=== PATIENT | female | born 1945 | race African-American/Black ===

== ENCOUNTER 2018-06-02 14:34 | Inpatient (IN) | payer BC, OTHER ==
--- NOTE | 2018-06-02 14:52 | PDOC ---
Rapid Medical Evaluation Time Seen by Provider: 06/02/18 14:48 Medical Evaluation: 06/02/18 14:48 Patient had a brief in-person assessment of this patient The patient presents with a chief complaint of: shortness of breath with productive cough. Reports coughing up bloody phlegm, sent to ed by pmd Pertinent physical findings are: appears winded diminished lungs sounds, a little labored irregular hear rhythm bipedal edema I have ordered the following: ekg, labs, chest xray This patient will proceed to the ED for further evaluation.
[2018-06-02 14:56] VITALS: BMI 22.1
[2018-06-02] MEDS ORDERED: methylPREDNISolone NA SUCC 125 MG/2 ML VIAL IVPUSH ONE (15:13)
[2018-06-02] MEDS: ALBUTEROL SO4 2.5/IPRATROPIUM 0.5 INH SOL 3 ML VIAL.NEB. NEB SCH ×4 (15:15→16:05)
--- NOTE | 2018-06-02 15:17 | PDOC ---
History of Present Illness - General Chief Complaint: Shortness of Breath Stated Complaint: PCP SENT/BLOOD IN MUCUS Time Seen by Provider: 06/02/18 14:48 History Source: Patient - History of Present Illness Timing/Duration: reports: other Associated Symptoms: reports: cough, shortness of breath, wheezing. denies: fever/chills Past History - Past Medical History Allergies/Adverse Reactions: Allergies Allergy/AdvReac Type Severity Reaction Status Date / Time No Known Allergies Allergy Verified 06/02/18 14:49 Home Medications: Ambulatory Orders Albuterol Sulfate [Proair Hfa] 8.5 gm IH DAILY 06/02/18 Amlodipine Besylate 10 mg PO DAILY 06/02/18 Apixaban [Eliquis] 5 mg PO BID 06/02/18 Atorvastatin Calcium 20 mg PO DAILY 06/02/18 Brimonidine Tartrate [Alphagan 0.15% -] 1 drop OU BID 06/02/18 Hydralazine HCl 100 mg PO DAILY 06/02/18 Losartan Potassium 0 mg PO DAILY 06/02/18 COPD: Yes - Suicide/Smoking/Psychosocial Hx Smoking History: Never smoked Hx Alcohol Use: No Drug/Substance Use Hx: No Review of Systems - Review of Systems Constitutional: No: Chills, Fever, Unexplained wgt Loss Respiratory: Yes: Cough, Wheezing. No: Shortness of Breath Cardiac (ROS): Yes: Chest Pain, Chest Tightness *Physical Exam - Vital Signs Last Vital Signs Temp Pulse Resp BP Pulse Ox 98.8 F 86 24 119/63 91 L 06/02/18 14:51 06/02/18 14:51 06/02/18 14:51 06/02/18 14:51 06/02/18 14:51 - Physical Exam General Appearance: Yes: Appropriately Dressed. No: Apparent Distress HEENT: positive: Normal Voice Neck: positive: Supple Respiratory/Chest: positive: Lungs Clear, Normal Breath Sounds. negative: Wheezing Cardiovascular: positive: Regular Rate, S1, S2 Integumentary: positive: Dry, Warm Neurologic: positive: Fully Oriented, Alert, Normal Mood/Affect ED Treatment Course - LABORATORY CBC & Chemistry Diagram: 06/02/18 15:30 06/02/18 15:30 Medical Decision Making - Medical Decision Making 06/02/18 15:14 72 yo F, h/o diet controlled DM, HTN, cardiomegaly, heart murmur, "bronchial asthma", no tob use, here w/ cough w/ sob. Pt c/o mostly non-productive cough for weeks that recently became grossly bloody. Also complaining of worsening shortness of breath, wheezing and chest tightness. States symptoms feels like her bronchial asthma, but that sxs has never been severe enough for her to come to the ED. States her sxs usually improves with her pump but not this time. No diaphoresis, n/v. No tob hx. CT in 2015 w/ pulmonary nodules. No f/u CT since per pt. Also c/o swelling to feet b/l of unclear duration. States she has had same in the past See exam Progressive cough w/ sob, ?hemoptysis Non smoker No recent travel or known sick contacts Sxs not improved w/ asthma pump Sating 91% on RA and visibly SOB w/ clear chest/lungs Asthma vs CHF vs ACS vs malignancy (melania given pulm noodles on CT in 2014, unsure if had f/u CT), possibly TB though no recent travel/exposure, less likely PE or dissection Chest/lungs clear -duoneb -steroids -ekg -cxr -labs -reassess 06/02/18 18:06 06/02/18 18:10 CXR read as ill defined densities in mid and upper lung gamboa b/l w/ superimposed infiltrate, "dramatically different" from prior CXR. CT strongly recommended. Will consider a dose of abx in ED. Anemic on labs w/ Hgb of 8, no old numbers for comparison. Trop neg. BNP >500. Will continue w/u and admit at this time 06/02/18 18:39 Case d/w admitting team and pt admitted *DC/Admit/Observation/Transfer Diagnosis at time of Disposition: SOB (shortness of breath), Cough, Lung mass - Discharge Dispostion Decision to Admit order: Yes - Referrals Referrals: Alejandra Jeffrey MD [Primary Care Provider] - - Patient Instructions - Post Discharge Activity
[2018-06-02] MEDS ORDERED: ALBUTEROL SO4 2.5/IPRATROPIUM 0.5 INH SOL 3 ML VIAL.NEB. NEB ONE (15:29)
[2018-06-02] MEDS ORDERED: methylPREDNISolone NA SUCC 125 MG/2 ML VIAL ONE (15:29)
[2018-06-02 15:57] LABS: BASO % 0.1 % (0-2.0); EOS % 0.1 % (0-4.5); HEMATOCRIT 25.8 % (32.4-45.2); HEMOGLOBIN 8.8 GM/dL (10.7-15.3); LYMPH % 5.9 % (8-40); MCH 32.1 pg (25.7-33.7); MEAN CELL VOLUME 94.4 fl (80-96); MONO % 5.3 % (3.8-10.2); NEUT % 88.6 % (42.8-82.8); PLATELET COUNT 256 K/MM3 (134-434); RBC 2.73 M/mm3 (3.60-5.2); RDW 12.7 % (11.6-15.6); WHITE BLOOD COUNT 10.9 K/mm3 (4.0-10.0)
[2018-06-02 16:12] LABS: INR 1.9 (0.83-1.09); PROTHROMBIN TIME (PATIENT) 21.5 SEC (9.7-13.0)
[2018-06-02 16:15] LABS: ACTIVATED PTT 40.2 SECONDS (25.2-36.5)
[2018-06-02 16:17] LABS: ALBUMIN 3.2 g/dl (3.4-5.0); ALK PHOS 94 U/L (45-117); ANION GAP 5 MMOL/L (8-16); BILIRUBIN,TOTAL 0.9 mg/dL (0.2-1); BLOOD UREA NITROGEN 10 mg/dL (7-18); CALCIUM 8.8 mg/dL (8.5-10.1); CHLORIDE 97 mmol/L (98-107); CO2 30 mmol/L (21-32); CREATININE 0.8 mg/dL (0.55-1.3); GLUCOSE,RANDOM 170 mg/dL (74-106); POTASSIUM 3.4 mmol/L (3.5-5.1); SGOT/AST 27 U/L (15-37); SGPT/ALT 20 U/L (13-61); SODIUM 132 mmol/L (136-145); TOT PROT 7.7 g/dl (6.4-8.2)
[2018-06-02 16:19] LABS: N-TERMINAL BNP 566.36 pg/ml (5-125)
[2018-06-02] MEDS ORDERED: CEFTRIAXONE 1 GM in DEXTROSE 5%-WATER - 50 ML IVPB ONE (19:00)
[2018-06-02] MEDS ORDERED: AZITHROMYCIN IVPB 500 MG in DEXTROSE 5%-WATER - 250 ML IVPB ONE (19:00)
--- NOTE | 2018-06-02 19:42 | PN ---
Teaching Attending Note Name of Resident: Dayan Javier ATTENDING PHYSICIAN STATEMENT I saw and evaluated the patient. I reviewed the resident's note and discussed the case with the resident. I agree with the resident's findings and plan as documented. SUBJECTIVE: Patient is a 72 year old woman with history of diet controlled DM, HTN, ?afib ( on Eliquis), cardiomegaly, heart murmur, and "bronchial asthma", presents with cough and SOB. She has mostly non-productive cough for weeks that recently became grossly bloody. Also has worsening SOB, wheezing and chest tightness. States symptoms feels like her bronchial asthma, but that symptoms have never been severe enough for her to come to the ER. Symptoms did not improve with her pump. Also has swelling of her feet of unclear duration. Denies diaphoresis, nausea or vomiting. Nonsmoker. CT in 2014 showed pulmonary nodules. No follow up CT since. OBJECTIVE: Alert Vital Signs Period Temp Pulse Resp BP Sys/Red Pulse Ox Last 24 Hr 98.7 F-98.8 F 71-86 17-24 119-145/55-74 91-100 HEENT: No Jaundice, eye redness or discharge, PERRLA, EOMI. Normocephalic, atraumatic. External ears are normal and hearing is grossly intact. No nasal discharge. Neck: Supple, nontender. No palpable adenopathy or thyromegaly. No JVD Chest: Good effort. Clear to auscultation and percussion. Heart: Regular. No S3 or rub; 2/6 EVY Abdomen: Not distended, soft, nontender and no HSM. No rebound or guarding. Normoactive bowel sounds. Ext: Peripheral pulses intact. No leg edema. Skin: Warm and dry. No petechiae, rash or ecchymosis. Neuro: Alert. Oriented x3. CN 2-12 grossly intact. Sensation grossly intact in all four extremities and DTR are symmetric. Home Medications Medication Instructions Recorded Albuterol Sulfate [Proair Hfa] 8.5 gm IH DAILY 06/02/18 Amlodipine Besylate 10 mg PO DAILY 06/02/18 Apixaban [Eliquis] 5 mg PO BID 06/02/18 Atorvastatin Calcium 20 mg PO DAILY 06/02/18 Brimonidine Tartrate [Alphagan 1 drop OU BID 06/02/18 0.15% -] Hydralazine HCl 100 mg PO DAILY 06/02/18 Losartan Potassium 0 mg PO DAILY 06/02/18 Abnormal Lab Results 06/02/18 06/02/18 06/02/18 15:30 15:30 15:30 WBC 10.9 H RBC 2.73 L Hgb 8.8 L Hct 25.8 L Absolute Neuts (auto) 9.7 H Neutrophils % 88.6 H Lymphocytes % 5.9 L PT with INR 21.50 H INR 1.90 H PTT (Actin FS) 40.2 H Sodium 132 L Potassium 3.4 L Chloride 97 L Anion Gap 5 L Random Glucose 170 H B-Natriuretic Peptide 566.36 H Albumin 3.2 L ASSESSMENT AND PLAN: 1. Hemoptysis and SOB - Has bilateral fluffy infiltrates most prominent in the upper lobes. CT report pending. Will get CTPA to rule out PE, send sputum and blood for TB tests and consult pulmonary. With history of chills and leukocytosis, may have associated atypical infection. Will send for urine legionella and treat with azithromycin, rocephin, duoneb and steroids. Will continue Eliquis for now and monitor hematocrit and stop it if hemptysis intensifies. Hyponatremia maybe due to SIADH associated with lung disease and/ or hyperglycemia. Will restrict free water inatek and correct hyperglycemia. Urinary K wasting due to hyperglycemia may expalin hypokalemia. Check Mg+ level and give oral KCL. Place on isolation while ruling out TB. 2. Diet controlled DM - Check HbA1c and implement sliding scale insulin regimen. Provide comprehensive diabetes care with patient teaching and counseling about the importance of euglycemia, eye care and foot care. Increase dose of losartan to improve BP control. 3. Anemia - May be related to her lung pathology - chronic inflammation. Do basic anemia work up including serial stool guaiacs, reticulocyte count and iron studies. 4. DVT prophylaxis - On Eliquis 5. Advance directives - Full code
[2018-06-02] MEDS ORDERED: CEFTRIAXONE 1 GM/50 ML BAG ONE ×2 (20:23)
[2018-06-02] MEDS ORDERED: AZITHROMYCIN IVPB 250 ML IVPB ONE (20:23)
[2018-06-02] MEDS ORDERED: POTASSIUM CHLORIDE TABS 20 MEQ TABLET.ER (FP) PO ONE ×2 (20:28→20:32)
--- NOTE | 2018-06-02 21:06 | HP ---
CHIEF COMPLAINT: Shortness of breath PCP: Dr. Rachele Roberts Event Planning Intern: Dr. Gutierres HISTORY OF PRESENT ILLNESS: Patient is a 72 year old female with a PMHx of HTN, HLD, NIDDMII (Diet controlled), Atrial Fibrillation, Asthma/Bronchitis, Cardiomegaly who presented today for progressive shortness of breath associated with a productive cough. Patient reports she's has asthma/Bronchitis her whole life and usually has a chronic cough throughout spring. However, patient now reports worsening productive cough for the past month and states bright red blood sputum in the beginning but is now dark associated with dyspnea on exertion. Reports she becomes short of breath with just a couple of steps and is now unable to walk up the stairs. Patient states she's been using her albuterol 2-3 times a day, which prompted her to visit her PCP this morning. After the PCP evaluated the patient, she encouraged her to come to the ED, which prompted this hospital visit. Patient does report having chills, night sweats in the last month and 40 pound weight loss in the last 10 years. Denies any occupational exposure or recent travel. Of note, reports she sits throughout the whole day at a custodial with her son and reports little mobility. Otherwise, patient denies any orthopnea, abdominal pain, diarrhea, constipation , melena, hematuria, previous PE or DVT, malignancy or treatment within 6 months , recent surgery, hormonal use. Patient reports last ECHO was one year ago and was wnl with a repeat one this Saturday. Last Stress test was last year and states it was wnl. Reports last colonoscopy was several decades ago and has not followed up. 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 from in the last 10 years and currently lives alone. Smoking: Denies Alcohol: Occasionally Drugs: Denies Family History: Mother- Stroke Father- Cardiomegaly, from bleeding ulcer Allergies: No Known Allergies Allergy (Verified 06/02/18 14:49) OBGYN: Unsure age of menarche or menopause. Reports used to have regular menstrual cycles HOME MEDICATIONS: Home Medications Medication Instructions Recorded Albuterol Sulfate [Proair Hfa] 8.5 gm IH DAILY 06/02/18 Amlodipine Besylate 10 mg PO DAILY 06/02/18 Apixaban [Eliquis] 5 mg PO BID 06/02/18 Atorvastatin Calcium 20 mg PO DAILY 06/02/18 Brimonidine Tartrate [Alphagan 1 drop OU BID 06/02/18 0.15% -] Hydralazine HCl 100 mg PO DAILY 06/02/18 Losartan Potassium 25 mg PO DAILY 06/02/18 REVIEW OF SYSTEMS CONSTITUTIONAL: chills, night sweats Absent: fever, diaphoresis, generalized weakness, malaise, loss of appetite, weight change HEENT: Absent: rhinorrhea, nasal congestion, throat pain, throat swelling, difficulty swallowing, mouth swelling, ear pain, eye pain, visual changes CARDIOVASCULAR: Absent: chest pain, syncope, palpitations, irregular heart rate, lightheadedness , peripheral edema RESPIRATORY: cough, shortness of breath, dyspnea with exertion, hemoptysis Absent: orthopnea, wheezing, stridor GASTROINTESTINAL: Absent: abdominal pain, abdominal distension, nausea, vomiting, diarrhea, constipation, melena, hematochezia GENITOURINARY: Absent: dysuria, frequency, urgency, hesitancy, hematuria, flank pain, genital pain MUSCULOSKELETAL: Absent: myalgia, arthralgia, joint swelling, back pain, neck pain SKIN: Absent: rash, itching, pallor HEMATOLOGIC/IMMUNOLOGIC: Absent: easy bleeding, easy bruising, lymphadenopathy, frequent infections ENDOCRINE: Absent: unexplained weight gain, unexplained weight loss, heat intolerance, cold intolerance NEUROLOGIC: Absent: headache, focal weakness or paresthesias, dizziness, unsteady gait, seizure, mental status changes, bladder or bowel incontinence PSYCHIATRIC: Absent: anxiety, depression, suicidal or homicidal ideation, hallucinations. PHYSICAL EXAMINATION Vital Signs - 24 hr 06/02/18 06/02/18 06/02/18 14:51 15:55 16:25 Temperature 98.8 F Pulse Rate 86 Pulse Rate [ 71 Apical] Respiratory 24 17 Rate Blood Pressure 119/63 Blood Pressure 145/74 [Right Arm] O2 Sat by Pulse 91 L 96 96 Oximetry (%) 06/02/18 19:15 Temperature 98.7 F Pulse Rate Pulse Rate [ 86 Apical] Respiratory 22 Rate Blood Pressure Blood Pressure 144/55 [Right Arm] O2 Sat by Pulse 100 Oximetry (%) GENERAL: Awake, alert, and fully oriented, in no acute distress. HEAD: Normal with no signs of trauma. EYES: Pupils equal, round and reactive to light, extraocular movements intact, sclera anicteric, conjunctiva clear. No lid lag. EARS, NOSE, THROAT: Oropharynx clear without exudates. Moist mucous membranes. NECK: (-) lymphadenopathy, JVD, or masses. LUNGS: Breath sounds equal, clear to auscultation bilaterally. No wheezes, and no crackles. No accessory muscle use. HEART: Regular rate and rhythm, 3/6 systolic murmurs on LUSB and RUSB ABDOMEN: Soft, nontender, not distended, normoactive bowel sounds, no guarding, no rebound, no masses. No hepatomegaly or splenomegaly. RECTAL: No external hemorrhoids. Stool in vault, no masses or lesions MUSCULOSKELETAL: No CVA tenderness. UPPER EXTREMITIES: No peripheral edema. LOWER EXTREMITIES: No peripheral edema. NEUROLOGICAL: Cranial nerves II-XII intact. Normal speech. Motor strength 5/5 bilaterally with sensory intact PSYCHIATRIC: Cooperative. Good eye contact. Appropriate mood and affect. SKIN: Warm, dry, normal turgor, no rashes or lesions noted, normal capillary refill. Laboratory Results - last 24 hr 06/02/18 06/02/18 06/02/18 15:30 15:30 15:30 WBC 10.9 H RBC 2.73 L Hgb 8.8 L Hct 25.8 L MCV 94.4 MCH 32.1 MCHC 34.0 RDW 12.7 Plt Count 256 MPV 9.0 Absolute Neuts (auto) 9.7 H Neutrophils % 88.6 H Lymphocytes % 5.9 L Monocytes % 5.3 Eosinophils % 0.1 Basophils % 0.1 Nucleated RBC % 0 PT with INR 21.50 H INR 1.90 H PTT (Actin FS) 40.2 H Sodium 132 L Potassium 3.4 L Chloride 97 L Carbon Dioxide 30 Anion Gap 5 L BUN 10 Creatinine 0.8 Creat Clearance w eGFR > 60 Random Glucose 170 H Calcium 8.8 Total Bilirubin 0.9 AST 27 ALT 20 Alkaline Phosphatase 94 Troponin I 0.02 B-Natriuretic Peptide 566.36 H Total Protein 7.7 Albumin 3.2 L IMAGES: Chest X-Ray (06/02/18): Mid and upper lung field densities with bilateral infiltrates ASSESSMENT/PLAN: Patient is a 72 year old female who presented with shortness of breath and hemoptysis. She was found to be hypoxic with Chest X-Ray revealing bilateral infiltrates. Patient admitted for further monitoring and management. Hypoxia with Hemoptysis and Dyspnea -Will need to rule out TB, PE, malignancy, and Atypical PNA -Chest X-Ray today revealed mid and upper lung field densities with bilateral infiltrates. Previous CT and CXR 2015 revealed pulmonary nodules -CTA pending to r/o PE -AFB, sputum cultures, Quantiferon ordered to rule out PE -Patient does have some leukocytosis with hyponatermia, chills, which might possibly be due to atypical PNA. Urine legionella ordered, Mycoplasma IGG and IGM ordered, Sputum cultures ordered. Will continue Azithromycin 500mg daily, Ceftriaxone 1gm daily, and Methylprednisone 40mg IVP BID -Duo-Neb PRN -Isolation precaution -Will ask for HIV testing due to bilateral pulmonary infiltrates -Pulmonary consult placed Normocytic Anemia -Possibly secondary to possibly lung pathology and inflammation. Reports never being diagnosed with anemia -Iron studies and retic count ordered -Stool Guaic done -Continue to monitor CBC -Will continue Eliquis unless hgb/hct drops significantly Hyponatremia -Likely SIADH from lung pathology and possible hyperglycemia -Limit water intake -Will need to control hyperglycemia -Continue to monitor BMP Hypokalemia -KCl 40meq ordered -Magnesium levels ordered -Continue to monitor BMP NIDDMII -Patient reports on no medications and is on diet control -A1C ordered -BGM and ISS HTN -Continue home medication with Hydralazine 100mg daily, Amlodipine 10mg daily, and Increase Losartan to 50mg BID -Continue to monitor BP HLD -Continue Lipitor 20mg HS -Lipid panel ordered Atrial Fibrillation -Rate controlled -Continue Eliquis 5mg BID. If hgb drops or patient has worsening hemoptysis. Will discontinue F/E/N -On no fluids. Tolerates PO -Hypokalemic and hyponatremic. Replete and repeat -Sodium controlled and diabetic controlled Prophylaxis -Eliquis for DVT. High risk -No GI required Disposition -Full code -Pulmonary consult pending. Case discussed with attending, Dr. Al. Dayan Javier [id number] Visit type - Emergency Visit Emergency Visit: Yes ED Registration Date: 06/02/18 Care time: The patient presented to the Emergency Department on the above date and was hospitalized for further evaluation of their emergent condition. - New Patient This patient is new to me today: Yes Date on this admission: 06/02/18 - Critical Care Critical Care patient: No Hospitalist Screening - Colonoscopy Questionnaire Colonoscopy Questionnaire: Colonoscopy Questionnaire - Patient: 50 - 75 years old and never had a screening colonoscopy: No History of colon or rectal polyps, or CA: No History of IBD, Crohn's disease or UC: No History of abdominal radiation therapy as a child: No - Relative: 1 with colon or rectal CA, or polyps at age 60 or younger: No Colon or rectal CA diagnosed at age 45 or younger: No Multiple relatives with colon or rectal CA: No - Outcome: Screening Result: Negative Screen
[2018-06-02] MEDS: LOSARTAN POTASSIUM 50 MG TABLET (FP) PO SCH (22:00)
[2018-06-02] MEDS: BRIMONIDINE TARTRATE 0.15% OPHTHALMIC 5 ML BOTTLE OU SCH (22:00)
[2018-06-02] MEDS: ATORVASTATIN CA 20 MG TABLET (FP) PO SCH (22:00)
[2018-06-02] MEDS: APIXABAN 5 MG TABLET PO SCH (22:00)
[2018-06-02] MEDS: INSULIN SLIDING SCALE (NOVOLOG) 1 VIAL SQ SCH (23:50)
[2018-06-03] MEDS ORDERED: HEMOQUE TEST 1 EACH EACH ONE ×2 (01:13→06:51)
[2018-06-03] MEDS: INSULIN SLIDING SCALE (NOVOLOG) 1 VIAL SQ SCH ×4 (06:57→21:55)
[2018-06-03 07:06] LABS: HEMATOCRIT 27.4 % (32.4-45.2); HEMOGLOBIN 8.8 GM/dL (10.7-15.3); LYMPH % 6.3 % (8-40); MCH 30.4 pg (25.7-33.7); MCHC 32.3 g/dl (32.0-36.0); MEAN CELL VOLUME 94.2 fl (80-96); MEAN PLT VOLUME 8.7 fl (7.5-11.1); MONO % 3.1 % (3.8-10.2); NEUT % 90.6 % (42.8-82.8); PLATELET COUNT 267 K/MM3 (134-434); RBC 2.91 M/mm3 (3.60-5.2); RDW 13.1 % (11.6-15.6)
[2018-06-03 07:22] LABS: INR 1.53 (0.83-1.09); PROTHROMBIN TIME (PATIENT) 17.3 SEC (9.7-13.0)
[2018-06-03 07:31] LABS: ANION GAP 10 MMOL/L (8-16); BLOOD UREA NITROGEN 13 mg/dL (7-18); CALCIUM 9.7 mg/dL (8.5-10.1); CHLORIDE 103 mmol/L (98-107); CO2 28 mmol/L (21-32); CREATININE 0.8 mg/dL (0.55-1.3); GLUCOSE,RANDOM 128 mg/dL (74-106); PHOSPHOROUS 4.1 mg/dL (2.5-4.9); POTASSIUM 4.6 mmol/L (3.5-5.1); SODIUM 141 mmol/L (136-145)
[2018-06-03 09:08] LABS: CHOLESTEROL 143 mg/dL (50-200); HDL CHOLESTEROL 86 mg/dL (40-60); TRIGLYCERIDES 39 mg/dL (0-150)
[2018-06-03] MEDS ORDERED: methylPREDNISolone NA SUCC 40 MG/1 ML VIAL IVPUSH SCH (10:00)
[2018-06-03] MEDS ORDERED: AZITHROMYCIN IVPB 500 MG in DEXTROSE 5%-WATER - 250 ML IVPB SCH (10:00)
[2018-06-03] MEDS: APIXABAN 5 MG TABLET PO SCH ×2 (10:16→21:55)
[2018-06-03] MEDS: amLODIPine BESYLATE 10 MG TABLET (FP) PO SCH (10:16)
[2018-06-03] MEDS: LOSARTAN POTASSIUM 50 MG TABLET (FP) PO SCH ×2 (10:16→21:55)
[2018-06-03] MEDS: CEFTRIAXONE 1 GM in DEXTROSE 5%-WATER - 50 ML IVPB SCH (10:17)
[2018-06-03] MEDS: hydrALAZINE HCL 50 MG TABLET (FP) PO SCH (10:17)
[2018-06-03] MEDS ORDERED: CEFTRIAXONE 1 GM/50 ML BAG ONE (10:20)
[2018-06-03] MEDS ORDERED: AZITHROMYCIN IVPB 250 ML IVPB ONE (10:20)
[2018-06-03] MEDS: BRIMONIDINE TARTRATE 0.15% OPHTHALMIC 5 ML BOTTLE OU SCH ×2 (10:44→21:55)
[2018-06-03] MEDS: ALBUTEROL SO4 2.5/IPRATROPIUM 0.5 INH SOL 3 ML VIAL.NEB. NEB PRN (11:32)
[2018-06-03] MEDS ORDERED: ALBUTEROL SO4 2.5/IPRATROPIUM 0.5 INH SOL 3 ML VIAL.NEB. NEB ONE (11:55)
[2018-06-03] MEDS ORDERED: INSULIN (NOVOLOG) ASPART 100 UNITS/ML 10ML VIAL ONE (13:39)
--- NOTE | 2018-06-03 14:30 | CON.PULM ---
Consult Consult Specialty:: PULMONARY Referred by:: Dr. Cárdenas Reason for Consultation:: hemoptysis - History of Present Illness Chief Complaint: hemoptysis History of Present Illness: 72yo female with h/o HTN, DM, atrial fibrillation, pulmonary HTN, asthma who presents with hemoptysis x 1 month. Reports initially was bright red, streaky now darker in color. Also with dyspnea on exertion. Denies subjective fevers but with chills and night sweats and unintentional weight loss. No chest pain or palpitations. She is originally from [place], unknown PPD status but mostly in the . Last recent travel was a cruise to the [facility] over the winter. No known TB contacts. She has been tested for HIV and was last negative. 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 - History Source History Provided By: Patient, Medical Record Limitations to Obtaining History: No Limitations - Past Medical History Cardio/Vascular: Yes: AFIB, HTN Pulmonary: Yes: Asthma Endocrine: Yes: Diabetes Mellitus - Alcohol/Substance Use Hx Alcohol Use: No - Smoking History Smoking history: Never smoked Home Medications - Allergies Allergies/Adverse Reactions: Allergies Allergy/AdvReac Type Severity Reaction Status Date / Time No Known Allergies Allergy Verified 06/02/18 14:49 - Home Medications Home Medications: Ambulatory Orders Albuterol Sulfate [Proair Hfa] 8.5 gm IH DAILY 06/02/18 Amlodipine Besylate 10 mg PO DAILY 06/02/18 Apixaban [Eliquis] 5 mg PO BID 06/02/18 Atorvastatin Calcium 20 mg PO DAILY 06/02/18 Brimonidine Tartrate [Alphagan 0.15% -] 1 drop OU BID 06/02/18 Hydralazine HCl 100 mg PO DAILY 06/02/18 Losartan Potassium 25 mg PO DAILY 06/02/18 Losartan Potassium 50 mg PO DAILY 06/03/18 Review of Systems - Review of Systems Constitutional: reports: Chills, Night Sweats, Unintentional Wgt. Loss, Weakness Eyes: denies: Recent Change in Vision HENT: denies: Nasal Congestion, Throat Pain Neck: denies: Stiffness, Tenderness Cardiovascular: reports: Shortness of Breath. denies: Chest Pain, Palpitations Respiratory: reports: Cough, Hemoptysis, SOB on Exertion. denies: Wheezing Gastrointestinal: denies: Abdominal Pain, Nausea, Vomiting Genitourinary: denies: Dysuria, Hematuria Neurological: denies: Dizziness, Headache Endocrine: reports: Unexplained Weight Loss Physical Exam Vital Sings: Vital Signs Temperature 98.1 F 06/03/18 13:46 Pulse Rate 69 06/03/18 13:46 Respiratory Rate 16 06/03/18 13:46 Blood Pressure 115/57 06/03/18 13:46 O2 Sat by Pulse Oximetry (%) 99 06/03/18 13:46 Constitutional: Yes: Calm Eyes: Yes: Conjunctiva Clear, EOM Intact HENT: Yes: Atraumatic, Normocephalic Neck: Yes: Supple, Trachea Midline, Lymphadenopathy (subcentimeter left anterior cervical chain) Cardiovascular: Yes: Regular Rate and Rhythm Respiratory: Yes: Diminished (decreased breath sounds at the bases) ...Clubbing: No Gastrointestinal: Yes: Normal Bowel Sounds, Soft. No: Tenderness Edema: No Neurological: Yes: Alert, Oriented Labs: CBC, BMP 06/03/18 06:45 06/03/18 06:45 Imaging - Results Chest X-ray: Report Reviewed, Image Reviewed Cat Scan: Report Reviewed, Image Reviewed (extensive multilobar infiltrates/ consolidations upper lobe predominance) Problem List - Problems (1) Hemoptysis Code(s): R04.2 - HEMOPTYSIS (2) Pneumonia Code(s): J18.9 - PNEUMONIA, UNSPECIFIED ORGANISM (3) Pulmonary HTN Code(s): I27.20 - PULMONARY HYPERTENSION, UNSPECIFIED (4) Asthma Code(s): J45.909 - UNSPECIFIED ASTHMA, UNCOMPLICATED Assessment/Plan Pneumonia r/o TB Hemoptysis Pulmonary HTN Asthma Atrial Fibrillation HTN DM - continue antibiotics - hold further azithromycin until TB ruled out - sputum cultures for routine and AFB - place PPD, send quantiferon gold - airborne isolation - send sputum cytology - inhaled bronchodilators - monitor/quantify hemoptysis - available for bronchoscopy if sputum samples unrevealing - DVT prophylaxis Thank you for this consult Myron Hurtado MD
--- NOTE | 2018-06-03 14:51 | PN ---
Physical Exam: SUBJECTIVE: Patient seen and examined at bedside this morning. Patient still has dyspnea on exertion. OBJECTIVE: Vital Signs Period Temp Pulse Resp BP Sys/Red Pulse Ox Last 24 Hr 97.8 F-98.8 F 61-86 16-24 115-160/55-98 91-100 GENERAL: The patient is awake, alert, and fully oriented, on 2L NC HEAD: Normal with no signs of trauma. EYES: PERRLA, EOMI, sclera anicteric, conjunctiva clear. ENT: Ears normal, nares patent, oropharynx clear without exudates, moist mucous membranes. NECK: Trachea midline, full range of motion, supple. LUNGS: Breath sounds equal, clear to auscultation bilaterally HEART: Regular rate and rhythm, + systolic murmur ABDOMEN: Soft, nontender, nondistended, normoactive bowel sounds. EXTREMITIES: 2+ pulses, warm, well-perfused, no edema. NEUROLOGICAL: Cranial nerves II through XII grossly intact. Normal speech, normal gait. PSYCH: Normal mood, normal affect. SKIN: Warm, dry, normal turgor, no rashes or lesions noted Laboratory Results - last 24 hr 06/02/18 06/02/18 06/02/18 08:44 08:44 15:30 WBC 10.9 H RBC 2.73 L Hgb 8.8 L Hct 25.8 L MCV 94.4 MCH 32.1 MCHC 34.0 RDW 12.7 Plt Count 256 MPV 9.0 Absolute Neuts (auto) 9.7 H Neutrophils % 88.6 H Lymphocytes % 5.9 L Monocytes % 5.3 Eosinophils % 0.1 Basophils % 0.1 Nucleated RBC % 0 Retic Count 2.56 H PT with INR INR PTT (Actin FS) Sodium Potassium Chloride Carbon Dioxide Anion Gap BUN Creatinine Creat Clearance w eGFR POC Glucometer Random Glucose Hemoglobin A1c % 5.6 Calcium Phosphorus Magnesium Ferritin Total Bilirubin AST ALT Alkaline Phosphatase Troponin I B-Natriuretic Peptide Total Protein Albumin Triglycerides Cholesterol Total LDL Cholesterol HDL Cholesterol Stool Occult Blood 06/02/18 06/02/18 06/02/18 15:30 15:30 21:47 WBC RBC Hgb Hct MCV MCH MCHC RDW Plt Count MPV Absolute Neuts (auto) Neutrophils % Lymphocytes % Monocytes % Eosinophils % Basophils % Nucleated RBC % Retic Count PT with INR 21.50 H INR 1.90 H PTT (Actin FS) 40.2 H Sodium 132 L Potassium 3.4 L Chloride 97 L Carbon Dioxide 30 Anion Gap 5 L BUN 10 Creatinine 0.8 Creat Clearance w eGFR > 60 POC Glucometer Random Glucose 170 H Hemoglobin A1c % Calcium 8.8 Phosphorus Magnesium Ferritin Total Bilirubin 0.9 AST 27 ALT 20 Alkaline Phosphatase 94 Troponin I 0.02 B-Natriuretic Peptide 566.36 H Total Protein 7.7 Albumin 3.2 L Triglycerides Cholesterol Total LDL Cholesterol HDL Cholesterol Stool Occult Blood Negative 06/02/18 06/02/18 06/03/18 21:50 21:50 01:23 WBC RBC Hgb Hct MCV MCH MCHC RDW Plt Count MPV Absolute Neuts (auto) Neutrophils % Lymphocytes % Monocytes % Eosinophils % Basophils % Nucleated RBC % Retic Count PT with INR INR PTT (Actin FS) Sodium Potassium Chloride Carbon Dioxide Anion Gap BUN Creatinine Creat Clearance w eGFR POC Glucometer [phone] Random Glucose Hemoglobin A1c % Calcium Phosphorus Magnesium 2.0 Ferritin Total Bilirubin AST ALT Alkaline Phosphatase Troponin I 0.02 B-Natriuretic Peptide Total Protein Albumin Triglycerides Cholesterol Total LDL Cholesterol HDL Cholesterol Stool Occult Blood 06/03/18 06/03/18 06/03/18 06:45 06:45 06:45 WBC 12.0 H RBC 2.91 L Hgb 8.8 L Hct 27.4 L MCV 94.2 MCH 30.4 MCHC 32.3 RDW 13.1 Plt Count 267 MPV 8.7 Absolute Neuts (auto) 10.9 H Neutrophils % 90.6 H Lymphocytes % 6.3 L Monocytes % 3.1 L Eosinophils % 0.0 D Basophils % 0.0 Nucleated RBC % 0 Retic Count PT with INR 17.30 H INR 1.53 H PTT (Actin FS) Sodium 141 Potassium 4.6 Chloride 103 Carbon Dioxide 28 Anion Gap 10 BUN 13 Creatinine 0.8 Creat Clearance w eGFR > 60 POC Glucometer Random Glucose 128 H Hemoglobin A1c % Calcium 9.7 Phosphorus 4.1 Magnesium Ferritin 68.4 Total Bilirubin AST ALT Alkaline Phosphatase Troponin I B-Natriuretic Peptide Total Protein Albumin Triglycerides 39 Cholesterol 143 Total LDL Cholesterol 46 HDL Cholesterol 86 H Stool Occult Blood 06/03/18 06/03/18 06:55 12:00 WBC RBC Hgb Hct MCV MCH MCHC RDW Plt Count MPV Absolute Neuts (auto) Neutrophils % Lymphocytes % Monocytes % Eosinophils % Basophils % Nucleated RBC % Retic Count PT with INR INR PTT (Actin FS) Sodium Potassium Chloride Carbon Dioxide Anion Gap BUN Creatinine Creat Clearance w eGFR POC Glucometer [phone] Random Glucose Hemoglobin A1c % Calcium Phosphorus Magnesium Ferritin Total Bilirubin AST ALT Alkaline Phosphatase Troponin I B-Natriuretic Peptide Total Protein Albumin Triglycerides Cholesterol Total LDL Cholesterol HDL Cholesterol Stool Occult Blood Active Medications Generic Name Dose Route Start Last Admin Trade Name Freq PRN Reason Stop Dose Admin Albuterol/Ipratropium 1 amp 06/02/18 20:23 06/03/18 11:32 Duoneb - NEB 1 amp Q4H PRN Administration SHORTNESS OF BREATH Amlodipine Besylate 10 mg 06/03/18 10:00 06/03/18 10:16 Norvasc - PO 10 mg DAILY ANITA Administration Apixaban 5 mg 06/02/18 22:00 06/03/18 10:16 Eliquis - PO 5 mg BID ANITA Administration Atorvastatin Calcium 20 mg 06/02/18 22:00 06/02/18 22:00 Lipitor - PO 20 mg HS ANITA Administration Brimonidine Tartrate 1 drop 06/02/18 22:00 06/03/18 10:44 Alphagan 0.15% - OU 1 drop BID ANITA Administration Hydralazine HCl 100 mg 06/03/18 10:00 06/03/18 10:17 Apresoline - PO 100 mg DAILY ANITA Administration Ceftriaxone Sodium 1 gm/ 50 mls @ 100 mls/hr 06/03/18 10:00 06/03/18 10:17 Dextrose IVPB 100 mls/hr DAILY ANITA Administration Protocol Insulin Aspart 1 vial 06/02/18 22:00 06/03/18 12:02 Novolog Vial Sliding Scale - SQ 2 units ACHS ANITA Administration Protocol Losartan Potassium 50 mg 06/02/18 22:00 06/03/18 10:16 Cozaar - PO 50 mg BID ANITA Administration Imaging Chest/Thorax CTA No evidence of pulmonary artery emboli. Bilateral patchy infiltrates with consolidates within the right upper lobe which appear unchanged form prior imaging. Chest CT without contrast In comparison to prior studies note is made of interval development of extensive bilateral upper lobe alveolar infiltrates, right more than left. Smaller bilateral lower lobe infiltrates are also seen. Cardiomegaly. Probably dilatation of the main pulmonary artery suggestive of increased pulmonary arterial pressure. Chest X-ray Extremely abnormal CXR with new pulmonary findings and persistently enlarged heart. ASSESSMENT/PLAN: Patient is a 72 year old female who presented with worsening dyspnea on exertion and hemoptysis for about 3 weeks. #Hemoptysis and PANIAGUA: likely 2/2 CAP, rule out TB -CTA revealed no evidence of pulmonary artery emboli. Bilateral patchy infiltrates with consolidates within the right upper lobe which appear unchanged from prior imaging. -Chest X-Ray revealed mid and upper lung field densities with bilateral infiltrates. -AFB, sputum cultures, Quantiferon pending. -Patient has WBC of 12.0 from 10.9. Maybe due to steroids given. Will trend WBC. -IV solu-medrol discontinued. -Urine legionella is negative. -Mycoplasma IGG and IGM orderer, sputum cultures still pending. -HIV screen pending. -Pulmonary (Dr. Hurtado) consulted. Recommendations appreciated: -Continue Ceftriaxone 1gm daily. -Hold Azithromycin until TB is ruled out. -Airborne isolation. -Duoneb PRN -Monitor/quantify hemoptysis. -Available for bronchoscopy if sputum samples unrevealing. -ID (Dr. Mckeon) consulted. Recommendations appreciated. -TB work-up -Fungal culture ordered. -ESR/CRP. -Continue Ceftriaxone. #Normocytic Anemia -Possibly secondary to possibly lung pathology and inflammation. -Iron studies pending. -Stool Guaic - negative -Retic ct - 2.56 -Continue Eliquis unless hgb/hct drops significantly -Will monitor H/H #Hyponatremia: resolved -Na today is 141. 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 K is 4.6. -Mg 2.6, Ph 4.1 -Continue to monitor BMP #NIDDMII -Patient was previously on Januvia and Metformin. -Reports that her primary care discontinued all her medications and is currently just on diet and exercise. -A1C - 5.6 -BGM and ISS ACHS #HTN -Continue home medication with Hydralazine 100mg daily, Amlodipine 10mg daily, and Increase Losartan to 50mg BID -Continue to monitor BP #HLD -Continue Lipitor 20mg HS -Lipid panel ordered #Atrial Fibrillation -Rate controlled -Continue Eliquis 5mg BID. If hgb drops or patient has worsening hemoptysis. Will discontinue. #F/E/N -On no fluids. Tolerates PO -electrolytes wnl, routine bmp monitoring -Sodium restricted/Diabetic diet #Prophylaxis -Patient on Eliquis #Disposition -Full code -Airborne isolation Visit type - Emergency Visit Emergency Visit: Yes ED Registration Date: 06/02/18 Care time: The patient presented to the Emergency Department on the above date and was hospitalized for further evaluation of their emergent condition. - New Patient This patient is new to me today: Yes Date on this admission: 06/03/18 - Critical Care Critical Care patient: No
--- NOTE | 2018-06-03 15:56 | PN ---
Teaching Attending Note Name of Resident: Elsy Johnston ATTENDING PHYSICIAN STATEMENT I saw and evaluated the patient. I reviewed the resident's note and discussed the case with the resident. I agree with the resident's findings and plan as documented. SUBJECTIVE:continues to have cough but no more episodes of hemoptysis. says it started as blood streak sputum and then progressively worsened to cayetano blood. no previous similar episodes. +intermittent night sweats. has lost 2 lbs in the past 6 months but reports decreased appetite during this time. was on a cruise in August 2017 where many people had flu like symptoms but she did not have any symptoms during or after. had PPD placed 60 years ago in school and reports it as negative (no repeat testing since then, was done routinely for school). no known exposure to someone with TB. on the cruise went to [facility] and [place] no recent abx use OBJECTIVE: Last Vital Signs Temp Pulse Resp BP Pulse Ox 98.7 F 87 16 118/68 98 06/03/18 15:22 06/03/18 15:22 06/03/18 15:22 06/03/18 15:22 06/03/18 15:22 General NAD CV S1 S2 RRR +murmur Lungs coarse breath sounds R upper/middle lobe ASSESSMENT AND PLAN: 72yo F wtih PMH DM which is diet controlled, HTN, AFib on eliquis, asthma presented to the ER with hemoptysis and cough 1. Hemoptysis- possible irritation from frequent coughing however concern for TB. check quantiferon, sputum for AFB x3. CT showing multilobar PNA with predominance in upper lobes. can d/c medrol. on azithro/ceftriaxone. ID and pulmonary on board. airborne precautions. f/u Cx 2. Hyponatremia- resolved 3. hypokalemia- resolved 4. Anemia- unknown baseline. stable with no more active hemoptysis. will cont to monitor. check iron studies. no indication for transfusion 5. afib- rate controlled. cont current management. will cont eliquis as hgb has been stable. may need to hold if worsens or hgb trends down 6. DM- diet controlled. check A1c. BGM and iss 7. HTN- controlled. cont current management 8. DVT ppx- eliquis.
--- NOTE | 2018-06-03 16:27 | PN ---
Progress Note (short form) - Note Progress Note: ID consult dictated 72 yo female with one month of worsening cough, some hemoptysis, some weight loss, night sweats no fevers but chills no vomiting, poor appetite no history of TB in the past or TB exposure probable BCG as child saw her associate store director on 05/20 and was prescribed a 10 day course of levaquin which she completed 05/30 without improvement no recent dental work chronic murmur no HIV risk factors bilateral upper lobe infiltrates right greater then left R/O TB, fungal, actino? also malignancy is a possiblility agree with afb isolaiton sputum gram stain/culture sputum afb times 3/naat afb quantiferon gold sputum fungal culture may need bronch esr/crp anemia- ?chronic disease murmur- check echo continue rocephin for now ? Problem List - Problems (1) Bilateral pulmonary infiltrates on chest x-ray Code(s): R91.8 - OTHER NONSPECIFIC ABNORMAL FINDING OF LUNG FIELD (2) Hemoptysis Code(s): R04.2 - HEMOPTYSIS (3) Anemia Code(s): D64.9 - ANEMIA, UNSPECIFIED
--- NOTE | 2018-06-03 16:44 | EKG ---
Test Reason : Blood Pressure : / mmHG Vent. Rate : 098 BPM Atrial Rate : 098 BPM P-R Int : 148 ms QRS Dur : 098 ms QT Int : 330 ms P-R-T Axes : 082 072 066 degrees QTc Int : 421 ms SINUS RHYTHM WITH MARKED SINUS ARRHYTHMIA POSSIBLE LEFT ATRIAL ENLARGEMENT INCOMPLETE RIGHT BUNDLE BRANCH BLOCK NONSPECIFIC ST AND T WAVE ABNORMALITY ABNORMAL ECG NO PREVIOUS ECGS AVAILABLE Confirmed by Titus Brooks ([id number]) on 06/03/2018 4:43:53 PM Referred By: Confirmed By:Titus Brooks
[2018-06-03] MEDS: ATORVASTATIN CA 20 MG TABLET (FP) PO SCH (21:55)
[2018-06-04 06:06] LABS: SERUM IRON SATURATION 6 % (15-55); TOTAL IRON BINDING CAPACITY 265 ug/dL (250-450); UIBC 248 ug/dL (118-369)
[2018-06-04] MEDS: INSULIN SLIDING SCALE (NOVOLOG) 1 VIAL SQ SCH ×4 (06:31→22:40)
[2018-06-04 06:48] LABS: HEMATOCRIT 22.8 % (32.4-45.2); HEMOGLOBIN 7.5 GM/dL (10.7-15.3); MCH 30.8 pg (25.7-33.7); MCHC 32.8 g/dl (32.0-36.0); MEAN CELL VOLUME 93.7 fl (80-96); MEAN PLT VOLUME 8.9 fl (7.5-11.1); PLATELET COUNT 274 K/MM3 (134-434); RBC 2.44 M/mm3 (3.60-5.2); RDW 12.8 % (11.6-15.6); WHITE BLOOD COUNT 19.9 K/mm3 (4.0-10.0)
[2018-06-04 07:19] LABS: BASO % 0.3 % (0-2.0); HEMATOCRIT 23.2 % (32.4-45.2); HEMOGLOBIN 7.5 GM/dL (10.7-15.3); LYMPH % 6.5 % (8-40); MCH 30.2 pg (25.7-33.7); MCHC 32.2 g/dl (32.0-36.0); MEAN CELL VOLUME 93.8 fl (80-96); MEAN PLT VOLUME 9.1 fl (7.5-11.1); MONO % 5.2 % (3.8-10.2); PLATELET COUNT 280 K/MM3 (134-434); RBC 2.47 M/mm3 (3.60-5.2); RDW 12.6 % (11.6-15.6); WHITE BLOOD COUNT 19.7 K/mm3 (4.0-10.0)
[2018-06-04 07:24] LABS: POTASSIUM 4.6 mmol/L (3.5-5.1)
[2018-06-04] MEDS ORDERED: INSULIN (NOVOLOG) ASPART 100 UNITS/ML 10ML VIAL ONE (07:42)
[2018-06-04] MEDS: ALBUTEROL SO4 2.5/IPRATROPIUM 0.5 INH SOL 3 ML VIAL.NEB. NEB PRN (07:54)
[2018-06-04] MEDS ORDERED: cefTRIAXone SODIUM 1 GM VIAL ONE (08:42)
[2018-06-04] MEDS ORDERED: DEXTROSE 5%-WATER - 50 ML IVPB ONE (08:42)
--- NOTE | 2018-06-04 08:43 | CONS ---
DATE OF CONSULTATION: 06/03/2018 REQUESTED BY: Hospitalist service. This is a 72-year-old woman who lives here in the community. She is originally from [place]. She has been here since the . She has had one month of worsening cough with some hemoptysis, some weight loss, some night sweats and chills, but no fever. Poor appetite. She is from her . She denies any HIV risk factors. She has no history of TB in the past or TB exposure. She suspects that she probably got BCG as a child in [place]. She recently saw her global supply chain director on the 20 of May and was prescribed a 10-day course of Levaquin, which she completed on the without any improvement. She has had no recent dental work and she notes that she has a chronic heart murmur. Her last travel was a cruise in the [facility] over the winter. She has had no other recent travel. PAST MEDICAL HISTORY: Notable for atrial fibrillation, hypertension, asthma, and diabetes. SURGICAL HISTORY: She has never had any surgery. She denies any recent hospitalizations. HABITS: There is no history of any cigarette or alcohol use. ALLERGIES: No known drug allergies. MEDICATIONS AT HOME: Include albuterol, amlodipine, Eliquis, atorvastatin, hydralazine, and losartan. PRIMARY MEDICAL DOCTOR: Alejandra Jeffrey MD SOCIAL HISTORY: She is . 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 REVIEW OF SYSTEMS: Chills, night sweats, unintentional weight loss with weakness, otherwise no complaints. PHYSICAL EXAMINATION: Vital Signs: Temperature is 98. She has had no fever here. Pulse is 68, blood pressure 114/45, respiratory rate is 20. She weighs 53 kg. HEENT: She is normocephalic. Eyes are anicteric. She has no conjunctival hemorrhages. Neck: Supple. She has no palpable adenopathy. Heart: Regular rate and rhythm. She has a 3/6 systolic ejection murmur. Lungs: Have crackles at the apices and diminished breath sounds at the bases. Abdomen: Soft and nontender. Extremities: Without edema. She has 2 or 3 small 1-mm sized macules on both her lower extremities. LABORATORY: Notable for a white count of 12, hemoglobin 8.8, platelets of 267, MCV is 94. Chemistries: BUN is 13, creatinine is 0.8. Liver function tests are normal. Chest CT reveals no PE and she has extensive bilateral upper lobe alveolar infiltrates, right greater than left with small bilateral lower lobe infiltrates. A Legionella urinary antigen has been done and is negative. IN SUMMARY: 1. This is a 72-year-old woman admitted with worsening cough, worsening shortness of breath with some hemoptysis and systemic symptoms. She has completed 10-days of Levaquin without improvement. Differential diagnosis includes bilateral infiltrates, would include TB, fungal, possibly something like Actinomycoses and also malignancy are a possibility. I would agree with the respiratory isolation, sputum gram stain culture, sputum AFB x3 with AFB PCR as well, QuantiFERON-TB gold, sputum fungal cultures, and she may definitely need a bronchoscopy if we do not get an answer to this. We will check a sedimentation rate and CRP. 2. Anemia. Question whether this is chronic disease. She is unaware of anemia in the past. 3. Murmur. We will check an echocardiogram and continue Rocephin for now. Further recommendations to follow. MIHIR SPICER M.D. [id number] [email or web address]
[2018-06-04 09:18] LABS: BLOOD UREA NITROGEN 25 mg/dL (7-18)
[2018-06-04 10:07] LABS: CHLORIDE 103 mmol/L (98-107); SODIUM 139 mmol/L (136-145)
--- NOTE | 2018-06-04 10:08 | PN ---
Progress Note (short form) - Note Progress Note: still with hemoptysis coughing last night feels better improved appetite Vital Signs Period Temp Pulse Resp BP Sys/Red Pulse Ox Last 24 Hr 97.7 F-98.9 F 57-87 16-20 114-160/45-98 98-100 cor-rrr lungs clear abd soft,nt ext no edema CBC, BMP 06/04/18 05:30 Microbiology 06/03/18 10:36 Sputum - Expectorated AFB Smear Concentration - Preliminary 06/03/18 10:36 Sputum - Expectorated Direct Acid Fast Bacilli Smear - Final 06/03/18 10:36 Sputum - Expectorated Mycobacterial Culture - Preliminary 06/03/18 08:12 Urine For Antigen Detection Legionella Antigen - Final 06/03/18 08:12 Urine For Antigen Detection Streptococcus pneumoniae Antigen (M - Final a/p bilateral upper lobe infiltrates right greater then left R/O TB, fungal, actino? also malignancy is a possiblility would send sputum cytology as well d/w pulmonary for bronch if sputum unrevealing f/u labs and cultures d/w hospitalist service anemia- ?chronic disease murmur- check echo continue rocephin for now ? Laboratory Tests 06/03/18 06/04/18 06:45 06:00 ESR 92 H HIV 1&2 Ag/Ab, 4th Gen Non reactive Problem List - Problems (1) Bilateral pulmonary infiltrates on chest x-ray Code(s): R91.8 - OTHER NONSPECIFIC ABNORMAL FINDING OF LUNG FIELD (2) Hemoptysis Code(s): R04.2 - HEMOPTYSIS (3) Anemia Code(s): D64.9 - ANEMIA, UNSPECIFIED
[2018-06-04] MEDS: LOSARTAN POTASSIUM 50 MG TABLET (FP) PO SCH ×3 (10:09→21:10)
[2018-06-04] MEDS: BRIMONIDINE TARTRATE 0.15% OPHTHALMIC 5 ML BOTTLE OU SCH ×2 (10:09→21:11)
[2018-06-04] MEDS: hydrALAZINE HCL 50 MG TABLET (FP) PO SCH ×2 (10:09→11:16)
[2018-06-04] MEDS: APIXABAN 5 MG TABLET PO SCH ×2 (10:09→21:10)
[2018-06-04] MEDS: amLODIPine BESYLATE 10 MG TABLET (FP) PO SCH (10:09)
[2018-06-04] MEDS: CEFTRIAXONE 1 GM in DEXTROSE 5%-WATER - 50 ML IVPB SCH (10:10)
--- NOTE | 2018-06-04 10:21 | PN ---
Teaching Attending Note Name of Resident: Elsy Johnston ATTENDING PHYSICIAN STATEMENT I saw and evaluated the patient. I reviewed the resident's note and discussed the case with the resident. I agree with the resident's findings and plan as documented. SUBJECTIVE:states overall breathing has improved. appetite improved. continues to have hemoptysis with blood clots. now states she was on levaquin [id number] earlier this month for these same symptoms. deneis Cp, fever, chills, night sweats. OBJECTIVE: Last Vital Signs Temp Pulse Resp BP Pulse Ox 98.2 F 57 L 18 114/73 99 06/04/18 08:36 06/04/18 08:36 06/04/18 09:14 06/04/18 08:36 06/04/18 09:14 General NAD CV S1 S2 RRR +murmur Lungs coarse breath sounds R upper/middle lobe ASSESSMENT AND PLAN: 72yo F wtih PMH DM which is diet controlled, HTN, AFib on eliquis, asthma presented to the ER with hemoptysis and cough 1. Hemoptysis- possible irritation from frequent coughing however concern for TB. active hemoptysis today with trending down Hgb. will monitor closely. 2. Acute hypoxic respiratory distress- currently 95% on 2L NC. desaturates to 82 % on RA. due to multilobar PNA but will need to r/o TB and malignancy. on ceftriaxone day 2. was recently on levaquin as outpatient. AFB neg x1. awaiting repeat AFB. sputum Cx. may need bronch. ID and pulmonary on board. airborne precautions. 3. Hyponatremia- resolved 4. hypokalemia- resolved 5. Anemia- unknown baseline. active hemoptysis. Hgb trending down. will repeat CBC later today. may need to hold elqiuis if continuing to trend down. check iron studies. no indication for transfusion 6. afib- rate controlled. cont current management. will cont eliquis as hgb has been stable. may need to hold if worsens or hgb trends down 7. DM- diet controlled. check A1c. BGM and iss 8. HTN- controlled. cont current management 9. DVT ppx- eliquis.
--- NOTE | 2018-06-04 12:25 | PN ---
Progress Note (short form) - Note Progress Note: Clinically feel better but still with hemoptysis. No CP. Ambulating in NAD on RA. Intake & Output 06/01/18 06/02/18 06/03/18 06/04/18 23:59 23:59 23:59 23:59 Intake Total 540 320 Balance 540 320 Weight 117 lb 117 lb Last Vital Signs Temp Pulse Resp BP Pulse Ox 98.2 F 57 L 18 114/73 99 06/04/18 08:36 06/04/18 08:36 06/04/18 09:14 06/04/18 08:36 06/04/18 09:14 Active Medications Albuterol/Ipratropium (Duoneb -) 1 amp NEB Q4H PRN PRN Reason: SHORTNESS OF BREATH Last Admin: 06/04/18 07:54 Dose: 1 amp Amlodipine Besylate (Norvasc -) 10 mg PO DAILY [facility] Last Admin: 06/04/18 10:09 Dose: 10 mg Apixaban (Eliquis -) 5 mg PO BID [facility] Last Admin: 06/04/18 10:09 Dose: 5 mg Atorvastatin Calcium (Lipitor -) 20 mg PO HS [facility] Last Admin: 06/03/18 21:55 Dose: 20 mg Brimonidine Tartrate (Alphagan 0.15% -) 1 drop OU BID [facility] Last Admin: 06/04/18 10:09 Dose: 1 drop Hydralazine HCl (Apresoline -) 100 mg PO DAILY [facility] Last Admin: 06/04/18 11:16 Dose: 50 mg Ceftriaxone Sodium 1 gm/ (Dextrose) 50 mls @ 100 mls/hr IVPB DAILY [facility]; Protocol Last Admin: 06/04/18 10:10 Dose: 100 mls/hr Insulin Aspart (Novolog Vial Sliding Scale -) 1 vial SQ ACHS [facility]; Protocol Last Admin: 06/04/18 06:31 Dose: Not Given Losartan Potassium (Cozaar -) 50 mg PO BID [facility] Last Admin: 06/04/18 10:11 Dose: Not Given Constitutional: Yes: NAD Eyes: Yes: Conjunctiva Clear, EOM Intact HENT: Yes: Atraumatic, Normocephalic Neck: Yes: Supple, Trachea Midline, Lymphadenopathy (subcentimeter left anterior cervical chain) Cardiovascular: Yes: Regular Rate and Rhythm Respiratory: Yes: Diminished at the bases, scattered rhonhci, no wheeze ...Clubbing: No Gastrointestinal: Yes: Normal Bowel Sounds, Soft. No: Tenderness Edema: No Neurological: Yes: Alert, Oriented Labs: Laboratory Results - last 24 hr 06/02/18 06/03/18 06/03/18 09:00 06:45 16:57 WBC RBC Hgb Hct MCV MCH MCHC RDW Plt Count MPV Absolute Neuts (auto) Neutrophils % Lymphocytes % Monocytes % Eosinophils % Basophils % Nucleated RBC % ESR POC Glucometer 131 Iron 17 L TIBC 265 Iron Saturation 6 L Transferrin 200 HIV 1&2 Ag/Ab, 4th Gen Non reactive 06/03/18 06/04/18 06/04/18 21:49 05:30 05:30 WBC 19.9 H 19.7 H RBC 2.44 L 2.47 L Hgb 7.5 L 7.5 L Hct 22.8 L D 23.2 L MCV 93.7 93.8 MCH 30.8 30.2 MCHC 32.8 32.2 RDW 12.8 12.6 Plt Count 274 280 MPV 8.9 9.1 Absolute Neuts (auto) 17.3 H Neutrophils % 88.0 H Lymphocytes % 6.5 L Monocytes % 5.2 Eosinophils % 0.0 Basophils % 0.3 D Nucleated RBC % 0 ESR POC Glucometer 137 Iron TIBC Iron Saturation Transferrin HIV 1&2 Ag/Ab, 4th Gen 06/04/18 06/04/18 05:59 06:00 WBC RBC Hgb Hct MCV MCH MCHC RDW Plt Count MPV Absolute Neuts (auto) Neutrophils % Lymphocytes % Monocytes % Eosinophils % Basophils % Nucleated RBC % ESR 92 H POC Glucometer 104 Iron TIBC Iron Saturation Transferrin HIV 1&2 Ag/Ab, 4th Gen Problem List - Problems (1) Hemoptysis Code(s): R04.2 - HEMOPTYSIS (2) Pneumonia Code(s): J18.9 - PNEUMONIA, UNSPECIFIED ORGANISM (3) Pulmonary HTN Code(s): I27.20 - PULMONARY HYPERTENSION, UNSPECIFIED (4) Asthma Code(s): J45.909 - UNSPECIFIED ASTHMA, UNCOMPLICATED Assessment/Plan Pneumonia R/O Pulmonary TB Hemoptysis Pulmonary HTN Asthma Atrial Fibrillation HTN DM - continue antibiotics - sputum cultures for routine and AFB - Quantiferon gold - airborne isolation - send sputum cytology - inhaled bronchodilators - monitor/quantify hemoptysis - DVT prophylaxis Dr aGrcia
[2018-06-04 13:39] LABS: ANION GAP 8 MMOL/L (8-16); CALCIUM 9.1 mg/dL (8.5-10.1); CO2 28 mmol/L (21-32); CREATININE 0.9 mg/dL (0.55-1.3); GLUCOSE,RANDOM 95 mg/dL (74-106)
[2018-06-04 13:41] LABS: BASO % 0.2 % (0-2.0); HEMATOCRIT 23.1 % (32.4-45.2); HEMOGLOBIN 7.7 GM/dL (10.7-15.3); LYMPH % 8.5 % (8-40); MCH 31.6 pg (25.7-33.7); MCHC 33.4 g/dl (32.0-36.0); MEAN CELL VOLUME 94.5 fl (80-96); MEAN PLT VOLUME 8.6 fl (7.5-11.1); MONO % 5.7 % (3.8-10.2); NEUT % 85.6 % (42.8-82.8); PLATELET COUNT 330 K/MM3 (134-434); RBC 2.44 M/mm3 (3.60-5.2); RDW 12.9 % (11.6-15.6); WHITE BLOOD COUNT 18.1 K/mm3 (4.0-10.0)
--- NOTE | 2018-06-04 14:48 | ECHO ---
Name: EMILE MADRIGAL Exam:Adult Echocardiogram Study Date: 06/04/2018 09:10 AM Age: 72 yrs [facility] Height: 61 in Weight: 117 lb BSA: 1.5 m2 MMode/2D Measurements & Calculations IVSd: 0.97 cm Ao root diam: 2.7 cm LVIDd: 3.7 cm LA dimension: 3.7 cm LVIDs: 2.7 cm LVPWd: 1.00 cm EDV(Teich): 57.5 ml LAV (MOD-bp): 59.9 ml ESV(Teich): 27.6 ml Doppler Measurements & Calculations MV E max he: 89.2 cm/sec Ao V2 max: 243.1 cm/sec MV A max he: 152.0 cm/sec Ao max P.2 mmHg MV E/A: 0.59 Ao V2 mean: 155.6 cm/sec MV dec time: 0.17 sec Ao mean P.0 mmHg Ao V2 VTI: 46.5 cm AI P1/2t: 535.1 msec AI max he: 426.9 cm/sec TR max he: 326.0 cm/sec AI max P.9 mmHg TR max P.0 mmHg AI dec slope: 233.7 cm/sec2 PA V2 max: 179.2 cm/sec Med Peak E' He: 6.1 cm/sec PA max P.8 mmHg Med E/e': 14.6 PA V2 mean: 94.1 cm/sec Lat Peak E' He: 11.7 cm/sec PA mean P.5 mmHg Lat E/e': 7.6 PA V2 VTI: 36.1 cm PI Vmax: 219.2 cm/sec Procedure A two-dimensional transthoracic echocardiogram with color flow and Doppler was performed. Left Ventricle The left ventricular size, thickness and function are normal. The left ventricular ejection fraction is normal. E/A reversal consistent with but not diagnostic of poor LV compliance. The left ventricular w all motion is normal. Right Ventricle The right ventricle is moderately dilated. The right ventricular systolic function is moderately redu abhilash. Atria The left atrial size is normal. The right atrium is severely dilated. Mitral Valve There is mild mitral valve thickening. There is no mitral valve stenosis. There is mild to moderate m itral regurgitation. Tricuspid Valve There is mild tricuspid valve thickening. There is no tricuspid stenosis. There is severe tricuspid regurgitation. Right ventricular systolic pressure is elevated at 40-50mmHg. Aortic Valve The aortic valve is normal in structure and function. No hemodynamically significant valvular aortic stenosis. Moderate aortic regurgitation. Pulmonic Valve The pulmonic valve is not well visualized. There is no pulmonic valvular stenosis. Mild pulmonic valv ular regurgitation. Great Vessels The aortic root is normal size. Pericardium/Pleura There is no pericardial effusion. Interpretation Summary Clinical correlation is recommended. Right ventricular systolic pressure is elevated at 40-50mmHg. There is severe tricuspid regurgitation. The right ventricle is moderately dilated. The right ventricular systolic function is moderately reduced. The right atrium is severely dilated. E/A reversal consistent with but not diagnostic of poor LV compliance The left ventricular wall motion is normal. The left ventricular ejection fraction is normal. The left ventricular size, thickness and function are normal Clinical correlation is recommended. MD Ryan Grant 06/04/2018 02:47 PM
--- NOTE | 2018-06-04 15:45 | CON.CARD ---
Cardiology Consult (text) - Consultation Consultation Note: cc: sob, cough hpi: 72 f hx pulm htn, htn, hld, here with sob, cough. Chronic mireles but past few days worse with cough and some blood in sputum. CP only with coughing. No loc, pnd, orthopnea, dizzy. Mild le edema. Being treated for pna. Sees dr cespedes for cardio. pmh: per hpi psh: nc social: no tob fam: no premature cad, scd ros: per hpi; no nvd, fever vision changes, muscel pains gib hematuria dysuria meds: Home Medications Medication Instructions Recorded Albuterol Sulfate [Proair Hfa] 8.5 gm IH DAILY 06/02/18 Amlodipine Besylate 10 mg PO DAILY 06/02/18 Apixaban [Eliquis] 5 mg PO BID 06/02/18 Atorvastatin Calcium 20 mg PO DAILY 06/02/18 Brimonidine Tartrate [Alphagan 1 drop OU BID 06/02/18 0.15% -] Hydralazine HCl 100 mg PO DAILY 06/02/18 Losartan Potassium 25 mg PO DAILY 06/02/18 Losartan Potassium 50 mg PO DAILY 06/03/18 pe: Vital Signs Period Temp Pulse Resp BP Sys/Red Pulse Ox Last 24 Hr 97.7 F-98.9 F 57-82 18-20 112-147/45-87 98-99 nad no jvd rrr s1s2 no mrg cta bl, nl eff aao3 trace le edema bl, no c/c abd nt nd pos bs no jaundice diaphoresis pos dp pt no cartoid bruits Laboratory Last Values WBC 18.1 K/mm3 (4.0-10.0) H 06/04/18 12:50 RBC 2.44 M/mm3 (3.60-5.2) L 06/04/18 12:50 Hgb 7.7 GM/dL (10.7-15.3) L 06/04/18 12:50 Hct 23.1 % (32.4-45.2) L 06/04/18 12:50 MCV 94.5 fl (80-96) 06/04/18 12:50 MCH 31.6 pg (25.7-33.7) 06/04/18 12:50 MCHC 33.4 g/dl (32.0-36.0) 06/04/18 12:50 RDW 12.9 % (11.6-15.6) 06/04/18 12:50 Plt Count 330 K/MM3 (134-434) 06/04/18 12:50 MPV 8.6 fl (7.5-11.1) 06/04/18 12:50 Absolute Neuts (auto) 15.5 K/mm3 (1.5-8.0) H 06/04/18 12:50 Neutrophils % 85.6 % (42.8-82.8) H 06/04/18 12:50 Lymphocytes % 8.5 % (8-40) D 06/04/18 12:50 Monocytes % 5.7 % (3.8-10.2) 06/04/18 12:50 Eosinophils % 0.0 % (0-4.5) 06/04/18 12:50 Basophils % 0.2 % (0-2.0) 06/04/18 12:50 Nucleated RBC % 0 % (0-0) 06/04/18 12:50 ESR 92 mm/hr (0-30) H 06/04/18 06:00 Retic Count 2.56 % (0.5-1.5) H 06/02/18 08:44 PT with INR 17.30 SEC (9.7-13.0) H 06/03/18 06:45 INR 1.53 (0.83-1.09) H 06/03/18 06:45 PTT (Actin FS) 40.2 SECONDS (25.2-36.5) H 06/02/18 15:30 Sodium 139 mmol/L (136-145) 06/04/18 05:30 Potassium 4.6 mmol/L (3.5-5.1) 06/04/18 05:30 Chloride 103 mmol/L (98-107) 06/04/18 05:30 Carbon Dioxide 28 mmol/L (21-32) 06/04/18 05:30 Anion Gap 8 MMOL/L (8-16) 06/04/18 05:30 BUN 25 mg/dL (7-18) H 06/04/18 05:30 Creatinine 0.9 mg/dL (0.55-1.3) 06/04/18 05:30 Creat Clearance w eGFR > 60 (>60) 06/04/18 05:30 POC Glucometer 121 UNITS (80-120) 06/04/18 11:48 Random Glucose 95 mg/dL (74-106) 06/04/18 05:30 Hemoglobin A1c % 5.6 % (4.2-6.3) 06/02/18 08:44 Calcium 9.1 mg/dL (8.5-10.1) 06/04/18 05:30 Phosphorus 4.1 mg/dL (2.5-4.9) 06/03/18 06:45 Magnesium 2.0 mg/dL (1.8-2.4) 06/02/18 21:50 Iron 17 ug/dL (27-139) L 06/02/18 09:00 TIBC 265 ug/dL (250-450) 06/02/18 09:00 Iron Saturation 6 % (15-55) L 06/02/18 09:00 Transferrin 200 mg/dL (200-370) 06/02/18 09:00 Ferritin 68.4 ng/ml (8-388) 06/03/18 06:45 Total Bilirubin 0.9 mg/dL (0.2-1) 06/02/18 15:30 AST 27 U/L (15-37) 06/02/18 15:30 ALT 20 U/L (13-61) 06/02/18 15:30 Alkaline Phosphatase 94 U/L (45-117) 06/02/18 15:30 Troponin I 0.02 ng/ml (0.00-0.05) 06/02/18 21:50 C-Reactive Protein 2.9 MG/DL (0.00-0.3) H 06/04/18 05:30 B-Natriuretic Peptide 566.36 pg/ml (5-125) H 06/02/18 15:30 Total Protein 7.7 g/dl (6.4-8.2) 06/02/18 15:30 Albumin 3.2 g/dl (3.4-5.0) L 06/02/18 15:30 Triglycerides 39 mg/dL (0-150) 06/03/18 06:45 Cholesterol 143 mg/dL (50-200) 06/03/18 06:45 Total LDL Cholesterol 46 mg/dL (5-100) 06/03/18 06:45 HDL Cholesterol 86 mg/dL (40-60) H 06/03/18 06:45 Stool Occult Blood Negative (NEGATIVE) 06/02/18 21:47 HIV 1&2 Ag/Ab, 4th Gen Non reactive (Non Reactive) 06/03/18 06:45 M.pneumoniae IgG Titer 561 U/mL (0-99) H 06/02/18 21:50 M.pneumoniae IgM Titer <770 U/mL (0-769) 06/02/18 21:50 Stress Echo 08/02: 1:48 min (SOB). 75% MPHR. BP 140 rest, no change exercise. Non-ischemic stress test by EKG. +Atrial flutter with rapid conduction transiently seen during the recovery period, converting with evidence of brief sinus node arrest and junctional escape rhythm. Echo Findings: (1) No echocardiographic evidence of inducible ischemia--SUBMAX HR. (2) Moderate to severe (eccentric) TR seen. (3) Peak TR gradient is at least 52 mmHg. (4) Resting LV intracavitary gradient of 19 mmHg, rising to 86 mmHg on post- exercise images. (No systolic anterior motion of the mitral valve is seen at rest or post- exercise.) Cardiac CTA 03/03: no L to R shunt evidence. normal pulmonary veins. RV probably normal size. 4.1 cm ascending aorta. echo 05/2018: nl lv, mod dilated rv, mod dec rv fcn, sev denise, mild-mod mr, sev tr, rvsp 40-50, mod ar, mild pr cta lungs 05/2018: no pe, +pna ecg: sr, nl intervals, old IRBBB Echo 03/02 ([facility]): nl LV size and syst fxn; EF 83%. no LVH. slight mid-cavitary gradient (8). LVOT gradient 27 resting, up to 33 with valsalva. no mitral TEJA. dd1. hi LAP. nl LA size. mild-mod RVE, normal function. mild-mod DENISE. severe TR. PASP 67. neg bubble study. Echo 04/2016: 1. The left ventricular size is normal. 2. Overall left ventricular systolic function is normal with, an EF between 65 - 70 %. 3. No regional wall motion abnormalities were noted (apex not well seen). 4. The right ventricle is normal in size and function. 5. Left atrium is mildly dilated by volume. 6. The right atrium is markedly enlarged. 7. 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 8. There is mild aortic regurgitation. 9. The tricuspid valve appears structurally normal. 10. Moderate tricuspid regurgitation present; eccentric jet present, which hugs the interatrial septum--severity may be underestimated. 11. There is moderate pulmonary hypertension. 12. The right ventricular systolic pressure, as measured by Doppler, is 61 mmHg (assuming RA pressure of 3 mmHg). 13. [id number] pulmonic regurgitation. Echo 04/30: nl LV/EF; dd1; nl RV; nl LA; mild DENISE; mild AI; eccentric TR at least moderate; nl LAP; nl RAP; mild pHTN (49); prob mild dilated ascending aorta (3.7); IASA (no PFO) Echo 2013 (at PMD): moderate pulm HTN; 56mmHg Renal dopplers 11/30: L stones, no hydro; normal size kidneys; no RA stenosis V/Q 04/2016: low prob for PE; central airway clumping/abnl ventil c/w airways dx and/or parenchymal dz PFTs 06/01: mild obstructive defect; mild decr DLCO; mild BD response tele: sr a/p: 72 f hx pulm htn, htn, hld, here with sob, cough. sob, cough: -ct shows pna, sxs improving with abx -pulm, ID following Paroxysmal atrial fibrillation: BRIEF ATRIAL FLUTTER DURING RECOVERY AFTER STRESS ECHO, RAPID HR (170S). THEN SPONTANEOUS PAROXYSM OF FLUTTER SEEN DURING EVENT MONITOR, HR MILDLY RAPID (114), WAS NOT ON AVN BLOCKERS AT THAT TIME. COULD NOT TOLERATE TOPROL 25, THEN LOPRESSOR 12.5 BID DUE TO JUNCTIONAL AND SINUS LISANDRO'S. DEFER AVN BLOCKERS, OBSERVE FOR RECURRENT PALPITATIONS (SHE NOTED SX'S AT TIME OF PAFL). MAY NEED ABLATION IF RECURRENCES FREQUENT OR PROLONGED IN FUTURE. CHADS VASC 4. CONT ELIQUIS DOING htn: -cont current meds hld: -cont statin Pulmonary hypertension, rv dysfunction, sev tr: -chronic condition for patient. she has declined RHC cath/eval by pulm htn specialist numerous times in past. says she will consider it, outpt f/u
[2018-06-04 16:35] LABS: MYCOPLASMA PNEUMONIAE,IG G AB 561 U/mL (0-99); MYCOPLASMA PNEUMONIAE,IGM AB <770 U/mL (0-769)
--- NOTE | 2018-06-04 17:29 | PN ---
Physical Exam: SUBJECTIVE: Patient seen and examined at bedside this morning. No acute events overnight. She reports shortness of breath and dyspnea on exertion, which is usually relieved by rest. She still has hemoptysis. Denies chest pain, palpitations. OBJECTIVE: Vital Signs Period Temp Pulse Resp BP Sys/Red Pulse Ox Last 24 Hr 97.7 F-98.9 F 57-82 18-18 112-147/62-87 99-99 GENERAL: The patient is awake, alert, and fully oriented, on 2L NC HEAD: Normal with no signs of trauma. EYES: PERRLA, EOMI, sclera anicteric, conjunctiva clear. ENT: Ears normal, nares patent, oropharynx clear without exudates, moist mucous membranes. NECK: Trachea midline, full range of motion, supple. LUNGS: +Rhonchi b/l, no wheezes HEART: Regular rate and rhythm, + systolic murmur ABDOMEN: Soft, nontender, nondistended, normoactive bowel sounds. EXTREMITIES: 2+ pulses, warm, well-perfused, no edema. NEUROLOGICAL: Cranial nerves II through XII grossly intact. Normal speech, normal gait. PSYCH: Normal mood, normal affect. SKIN: Warm, dry, normal turgor, no rashes or lesions noted Laboratory Results - last 24 hr 06/02/18 06/02/18 06/03/18 09:00 21:50 06:45 WBC RBC Hgb Hct MCV MCH MCHC RDW Plt Count MPV Absolute Neuts (auto) Neutrophils % Lymphocytes % Monocytes % Eosinophils % Basophils % Nucleated RBC % ESR Sodium Potassium Chloride Carbon Dioxide Anion Gap BUN Creatinine Creat Clearance w eGFR POC Glucometer Random Glucose Calcium Iron 17 L TIBC 265 Iron Saturation 6 L Transferrin 200 C-Reactive Protein HIV 1&2 Ag/Ab, 4th Gen Non reactive M.pneumoniae IgG Titer 561 H M.pneumoniae IgM Titer <770 06/03/18 06/04/18 06/04/18 21:49 05:30 05:30 WBC 19.9 H RBC 2.44 L Hgb 7.5 L Hct 22.8 L D MCV 93.7 MCH 30.8 MCHC 32.8 RDW 12.8 Plt Count 274 MPV 8.9 Absolute Neuts (auto) Neutrophils % Lymphocytes % Monocytes % Eosinophils % Basophils % Nucleated RBC % ESR Sodium 139 Potassium 4.6 Chloride 103 Carbon Dioxide 28 Anion Gap 8 BUN 25 H Creatinine 0.9 Creat Clearance w eGFR > 60 POC Glucometer 137 Random Glucose 95 Calcium 9.1 Iron TIBC Iron Saturation Transferrin C-Reactive Protein 2.9 H HIV 1&2 Ag/Ab, 4th Gen M.pneumoniae IgG Titer M.pneumoniae IgM Titer 06/04/18 06/04/18 06/04/18 05:30 05:59 06:00 WBC 19.7 H RBC 2.47 L Hgb 7.5 L Hct 23.2 L MCV 93.8 MCH 30.2 MCHC 32.2 RDW 12.6 Plt Count 280 MPV 9.1 Absolute Neuts (auto) 17.3 H Neutrophils % 88.0 H Lymphocytes % 6.5 L Monocytes % 5.2 Eosinophils % 0.0 Basophils % 0.3 D Nucleated RBC % 0 ESR 92 H Sodium Potassium Chloride Carbon Dioxide Anion Gap BUN Creatinine Creat Clearance w eGFR POC Glucometer 104 Random Glucose Calcium Iron TIBC Iron Saturation Transferrin C-Reactive Protein HIV 1&2 Ag/Ab, 4th Gen M.pneumoniae IgG Titer M.pneumoniae IgM Titer 06/04/18 06/04/18 11:48 12:50 WBC 18.1 H RBC 2.44 L Hgb 7.7 L Hct 23.1 L MCV 94.5 MCH 31.6 MCHC 33.4 RDW 12.9 Plt Count 330 MPV 8.6 Absolute Neuts (auto) 15.5 H Neutrophils % 85.6 H Lymphocytes % 8.5 D Monocytes % 5.7 Eosinophils % 0.0 Basophils % 0.2 Nucleated RBC % 0 ESR Sodium Potassium Chloride Carbon Dioxide Anion Gap BUN Creatinine Creat Clearance w eGFR POC Glucometer 121 Random Glucose Calcium Iron TIBC Iron Saturation Transferrin C-Reactive Protein HIV 1&2 Ag/Ab, 4th Gen M.pneumoniae IgG Titer M.pneumoniae IgM Titer Active Medications Generic Name Dose Route Start Last Admin Trade Name Freq PRN Reason Stop Dose Admin Albuterol/Ipratropium 1 amp 06/02/18 20:23 06/04/18 07:54 Duoneb - NEB 1 amp Q4H PRN Administration SHORTNESS OF BREATH Amlodipine Besylate 10 mg 06/03/18 10:00 06/04/18 10:09 Norvasc - PO 10 mg DAILY ANITA Administration Apixaban 5 mg 06/02/18 22:00 06/04/18 10:09 Eliquis - PO 5 mg BID ANITA Administration Atorvastatin Calcium 20 mg 06/02/18 22:00 06/03/18 21:55 Lipitor - PO 20 mg HS ANITA Administration Brimonidine Tartrate 1 drop 06/02/18 22:00 06/04/18 10:09 Alphagan 0.15% - OU 1 drop BID ANITA Administration Hydralazine HCl 100 mg 06/03/18 10:00 06/04/18 11:16 Apresoline - PO 50 mg DAILY ANITA Administration Ceftriaxone Sodium 1 gm/ 50 mls @ 100 mls/hr 06/03/18 10:00 06/04/18 10:10 Dextrose IVPB 100 mls/hr DAILY ANITA Administration Protocol Insulin Aspart 1 vial 06/02/18 22:00 06/04/18 06:31 Novolog Vial Sliding Scale - SQ Not Given ACHS ANITA Protocol Losartan Potassium 50 mg 06/02/18 22:00 06/04/18 10:11 Cozaar - PO Not Given BID ANITA Imaging Chest/Thorax CTA No evidence of pulmonary artery emboli. Bilateral patchy infiltrates with consolidates within the right upper lobe which appear unchanged form prior imaging. Chest CT without contrast In comparison to prior studies note is made of interval development of extensive bilateral upper lobe alveolar infiltrates, right more than left. Smaller bilateral lower lobe infiltrates are also seen. Cardiomegaly. Probably dilatation of the main pulmonary artery suggestive of increased pulmonary arterial pressure. Chest X-ray Extremely abnormal CXR with new pulmonary findings and persistently enlarged heart. Echo Clinical correlation is recommended. Right ventricular systolic pressure is elevated at 40-50 mmHg. There is severe tricuspid regurgitation. The right ventricle is moderately dilated. The right ventricular systolic function is moderately reduced. The right atrium is severely dilated. E/A reversal consistent with but not diagnostic of poor LV compliance. The left ventricular wall motion is normal. The left ventricular EF is normal. The left ventricular size, thickness, and function are normal. Microbiology 06/03/18 15:25 Blood - Peripheral Venous Blood Culture - Preliminary NO GROWTH OBTAINED AFTER 24 HOURS, INCUBATION TO CONTINUE FOR 4 DAYS. 06/03/18 15:25 Blood - Peripheral Venous Blood Culture - Preliminary NO GROWTH OBTAINED AFTER 24 HOURS, INCUBATION TO CONTINUE FOR 4 DAYS. 06/03/18 19:00 Sputum - Expectorated Gram Stain - Final 06/03/18 19:00 Sputum - Expectorated Sputum Culture - Preliminary NORMAL RESPIRATORY SARAH 06/03/18 19:00 Sputum - Expectorated LONNIE Preparation - Preliminary 06/03/18 19:00 Sputum - Expectorated Fungal Culture - Preliminary 06/03/18 10:36 Sputum - Expectorated AFB Smear Concentration - Preliminary 06/03/18 10:36 Sputum - Expectorated Direct Acid Fast Bacilli Smear - Final 06/03/18 10:36 Sputum - Expectorated Mycobacterial Culture - Preliminary 06/03/18 08:12 Urine For Antigen Detection Legionella Antigen - Final 06/03/18 08:12 Urine For Antigen Detection Streptococcus pneumoniae Antigen (M - Final ASSESSMENT/PLAN: Patient is a 72 year old female who presented with worsening dyspnea on exertion and hemoptysis for about 3 weeks. #Hemoptysis and PANIAGUA: likely 2/2 CAP, rule out TB -CTA revealed no evidence of pulmonary artery emboli. Bilateral patchy infiltrates with consolidates within the right upper lobe which appear unchanged from prior imaging. -Chest X-Ray revealed mid and upper lung field densities with bilateral infiltrates. -WBC has increased to 19.9. Will trend WBC. -AFB smear negative, AFB Sputum cultures negative -Quantiferon pending. -Urine legionella is negative. -Mycoplasma IgG -5.61 (high) and IgM -<770 -HIV 1&2 nonreactive. -Pulmonary (Dr. Garcia) consulted. Recommendations appreciated: -Continue Ceftriaxone 1gm daily. -Hold Azithromycin until TB is ruled out. -Airborne isolation. -Duoneb PRN -Monitor/quantify hemoptysis. -Available for bronchoscopy if sputum samples unrevealing. -ID (Dr. Mckeon) consulted. Recommendations appreciated. -Fungal culture - negative -ESR 92 / CRP 2.9 -Continue Ceftriaxone. -Echo ordered. #Pulmonary Hypertension -Echo -RV systolic pressure elevated at 40-50 mmHg. Severe TR. RV is moderately dilated. RV systolic function is moderately reduced. RA is severe dilated. -Cardiology (Dr. Gutierres) consulted. Recommendations appreciated: -Chronic condition for patient. She has declined right heart cath/eval by pulmonary HTN specialist numerous times in the past. -Says she will consider it as outpatient follow-up. #Normocytic Anemia -Possibly secondary to possibly lung pathology and inflammation. -Iron studies pending. -Stool Guaic - negative -Retic ct - 2.56 -Continue Eliquis unless hgb/hct drops significantly -Will monitor H/H #Hyponatremia: resolved -Na today is 139. 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 K is 4.6. -Mg 2.6, Ph 4.1 -Continue to monitor BMP #NIDDMII -Patient was previously on Januvia and Metformin. -Reports that her primary care discontinued all her medications and is currently just on diet and exercise. -A1C - 5.6 -BGM and ISS ACHS #HTN -Continue home medication with Hydralazine 100mg daily, Amlodipine 10mg daily, and Increase Losartan to 50mg BID -Continue to monitor BP #HLD -Continue Lipitor 20mg HS -Lipid panel ordered #Atrial Fibrillation -Rate controlled -Continue Eliquis 5mg BID. If hgb drops or patient has worsening hemoptysis. Will discontinue. #F/E/N -Not on any standing fluids. -Encourage increased oral fluid intake. -Electrolytes wnl. -Sodium restricted/Diabetic diet. #Prophylaxis -Patient on Eliquis #Disposition -Full code -Airborne isolation Visit type - Emergency Visit Emergency Visit: Yes ED Registration Date: 06/02/18 Care time: The patient presented to the Emergency Department on the above date and was hospitalized for further evaluation of their emergent condition. - New Patient This patient is new to me today: Yes Date on this admission: 06/04/18 - Critical Care Critical Care patient: No
[2018-06-04] MEDS ORDERED: PT OWN MED DRAWER 7, Y5N ONE (20:50)
[2018-06-04] MEDS: ATORVASTATIN CA 20 MG TABLET (FP) PO SCH (21:10)
[2018-06-05] MEDS: INSULIN SLIDING SCALE (NOVOLOG) 1 VIAL SQ SCH ×4 (07:04→22:15)
[2018-06-05 07:17] LABS: BASO % 0.4 % (0-2.0); EOS % 0.7 % (0-4.5); HEMATOCRIT 26.3 % (32.4-45.2); HEMOGLOBIN 8.7 GM/dL (10.7-15.3); LYMPH % 12.5 % (8-40); MCH 31.3 pg (25.7-33.7); MCHC 33.1 g/dl (32.0-36.0); MEAN CELL VOLUME 94.6 fl (80-96); MEAN PLT VOLUME 8.5 fl (7.5-11.1); NEUT % 80.4 % (42.8-82.8); PLATELET COUNT 364 K/MM3 (134-434); RBC 2.78 M/mm3 (3.60-5.2); RDW 12.9 % (11.6-15.6); WHITE BLOOD COUNT 13.8 K/mm3 (4.0-10.0)
[2018-06-05] MEDS ORDERED: DEXTROSE 5%-WATER - 50 ML IVPB ONE (09:21)
[2018-06-05] MEDS ORDERED: cefTRIAXone SODIUM 1 GM VIAL ONE (09:21)
[2018-06-05] MEDS ORDERED: PT OWN MED DRAWER 7, Y5N ONE (09:21)
[2018-06-05] MEDS: CEFTRIAXONE 1 GM in DEXTROSE 5%-WATER - 50 ML IVPB SCH (09:24)
[2018-06-05] MEDS: hydrALAZINE HCL 50 MG TABLET (FP) PO SCH (09:25)
[2018-06-05] MEDS: LOSARTAN POTASSIUM 50 MG TABLET (FP) PO SCH ×2 (09:25→22:10)
[2018-06-05] MEDS: APIXABAN 5 MG TABLET PO SCH ×2 (09:25→22:11)
[2018-06-05] MEDS: amLODIPine BESYLATE 10 MG TABLET (FP) PO SCH (09:25)
[2018-06-05] MEDS: BRIMONIDINE TARTRATE 0.15% OPHTHALMIC 5 ML BOTTLE OU SCH ×2 (09:27→22:11)
--- NOTE | 2018-06-05 11:18 | PN ---
Progress Note, Physician History of Present Illness: pulmonary alert,feeling better,+ hemoptysis( bright red),-cp,-sob - Current Medication List Current Medications: Active Medications Albuterol/Ipratropium (Duoneb -) 1 amp NEB Q4H PRN PRN Reason: SHORTNESS OF BREATH Last Admin: 06/04/18 07:54 Dose: 1 amp Amlodipine Besylate (Norvasc -) 10 mg PO DAILY [facility] Last Admin: 06/05/18 09:25 Dose: 10 mg Apixaban (Eliquis -) 5 mg PO BID [facility] Last Admin: 06/05/18 09:25 Dose: 5 mg Atorvastatin Calcium (Lipitor -) 20 mg PO HS [facility] Last Admin: 06/04/18 21:10 Dose: 20 mg Brimonidine Tartrate (Alphagan 0.15% -) 1 drop OU BID [facility] Last Admin: 06/05/18 09:27 Dose: 1 drop Hydralazine HCl (Apresoline -) 100 mg PO DAILY [facility] Last Admin: 06/05/18 09:25 Dose: 50 mg Ceftriaxone Sodium 1 gm/ (Dextrose) 50 mls @ 100 mls/hr IVPB DAILY [facility]; Protocol Last Admin: 06/05/18 09:24 Dose: 100 mls/hr Insulin Aspart (Novolog Vial Sliding Scale -) 1 vial SQ ACHS [facility]; Protocol Last Admin: 06/05/18 07:04 Dose: Not Given Losartan Potassium (Cozaar -) 50 mg PO BID [facility] Last Admin: 06/05/18 09:25 Dose: 50 mg - Objective Vital Signs: Vital Signs Temperature 98.8 F 06/05/18 10:00 Pulse Rate 82 06/05/18 10:00 Respiratory Rate 20 06/05/18 10:00 Blood Pressure 124/68 06/05/18 10:00 O2 Sat by Pulse Oximetry (%) 99 06/05/18 09:00 Constitutional: Yes: Well Nourished, Calm Eyes: Yes: WNL HENT: Yes: WNL Neck: Yes: WNL Cardiovascular: Yes: Pulse Irregular, S1, S2 Respiratory: Yes: Diminished, Rales (scattered kendall crackles) Gastrointestinal: Yes: Normal Bowel Sounds, Soft Extremities: Yes: WNL Edema: No Labs: CBC, BMP 06/05/18 05:30 Assessment/Plan Problem List - Problems (1) Hemoptysis Code(s): R04.2 - HEMOPTYSIS (2) Pneumonia Code(s): J18.9 - PNEUMONIA, UNSPECIFIED ORGANISM (3) Pulmonary HTN Code(s): I27.20 - PULMONARY HYPERTENSION, UNSPECIFIED (4) Asthma Code(s): J45.909 - UNSPECIFIED ASTHMA, UNCOMPLICATED Assessment/Plan Bilateral Pneumonia r/o TB Hemoptysis Pulmonary HTN Asthma Atrial Fibrillation HTN DM - antibiotics - hold further azithromycin until TB ruled out - sputum cultures for routine and AFB - place PPD, send quantiferon gold - airborne isolation - inhaled bronchodilators - monitor/quantify hemoptysis - available for bronchoscopy if sputum samples unrevealing - DVT prophylaxis - f/u chest x-rays DR LANCE
--- NOTE | 2018-06-05 11:39 | PN ---
Progress Note (short form) - Note Progress Note: s: no cp palps dizzy. sob better Current Medications Generic Name Dose Route Start Last Admin Trade Name Laura PRN Reason Stop Dose Admin Albuterol/Ipratropium 1 amp 06/02/18 20:23 06/04/18 07:54 Duoneb - NEB 1 amp Q4H PRN Administration SHORTNESS OF BREATH Amlodipine Besylate 10 mg 06/03/18 10:00 06/05/18 09:25 Norvasc - PO 10 mg DAILY ANITA Administration Apixaban 5 mg 06/02/18 22:00 06/05/18 09:25 Eliquis - PO 5 mg BID ANITA Administration Atorvastatin Calcium 20 mg 06/02/18 22:00 06/04/18 21:10 Lipitor - PO 20 mg HS ANITA Administration Brimonidine Tartrate 1 drop 06/02/18 22:00 06/05/18 09:27 Alphagan 0.15% - OU 1 drop BID ANITA Administration Hydralazine HCl 100 mg 06/03/18 10:00 06/05/18 09:25 Apresoline - PO 50 mg DAILY ANITA Administration Ceftriaxone Sodium 1 gm/ 50 mls @ 100 mls/hr 06/03/18 10:00 06/05/18 09:24 Dextrose IVPB 100 mls/hr DAILY ANITA Administration Protocol Insulin Aspart 1 vial 06/02/18 22:00 06/05/18 07:04 Novolog Vial Sliding Scale - SQ Not Given ACHS ANITA Protocol Losartan Potassium 50 mg 06/02/18 22:00 06/05/18 09:25 Cozaar - PO 50 mg BID ANITA Administration Vital Signs Period Temp Pulse Resp BP Sys/Red Pulse Ox Last 24 Hr 98.1 F-98.8 F 75-93 20-20 112-127/62-75 99-99 nad no jvd rrr s1s2 no mrg cta bl, nl eff aao3 trace le edema bl, no c/c abd nt nd pos bs no jaundice diaphoresis Laboratory Last Values WBC 13.8 K/mm3 (4.0-10.0) H 06/05/18 05:30 RBC 2.78 M/mm3 (3.60-5.2) L 06/05/18 05:30 Hgb 8.7 GM/dL (10.7-15.3) L 06/05/18 05:30 Hct 26.3 % (32.4-45.2) L 06/05/18 05:30 MCV 94.6 fl (80-96) 06/05/18 05:30 MCH 31.3 pg (25.7-33.7) 06/05/18 05:30 MCHC 33.1 g/dl (32.0-36.0) 06/05/18 05:30 RDW 12.9 % (11.6-15.6) 06/05/18 05:30 Plt Count 364 K/MM3 (134-434) 06/05/18 05:30 MPV 8.5 fl (7.5-11.1) 06/05/18 05:30 Absolute Neuts (auto) 11.1 K/mm3 (1.5-8.0) H 06/05/18 05:30 Neutrophils % 80.4 % (42.8-82.8) 06/05/18 05:30 Lymphocytes % 12.5 % (8-40) D 06/05/18 05:30 Monocytes % 6.0 % (3.8-10.2) 06/05/18 05:30 Eosinophils % 0.7 % (0-4.5) D 06/05/18 05:30 Basophils % 0.4 % (0-2.0) 06/05/18 05:30 Nucleated RBC % 0 % (0-0) 06/05/18 05:30 ESR 92 mm/hr (0-30) H 06/04/18 06:00 Retic Count 2.56 % (0.5-1.5) H 06/02/18 08:44 PT with INR 17.30 SEC (9.7-13.0) H 06/03/18 06:45 INR 1.53 (0.83-1.09) H 06/03/18 06:45 PTT (Actin FS) 40.2 SECONDS (25.2-36.5) H 06/02/18 15:30 Sodium 139 mmol/L (136-145) 06/04/18 05:30 Potassium 4.6 mmol/L (3.5-5.1) 06/04/18 05:30 Chloride 103 mmol/L (98-107) 06/04/18 05:30 Carbon Dioxide 28 mmol/L (21-32) 06/04/18 05:30 Anion Gap 8 MMOL/L (8-16) 06/04/18 05:30 BUN 25 mg/dL (7-18) H 06/04/18 05:30 Creatinine 0.9 mg/dL (0.55-1.3) 06/04/18 05:30 Creat Clearance w eGFR > 60 (>60) 06/04/18 05:30 POC Glucometer 84 UNITS (80-120) 06/05/18 06:58 Random Glucose 95 mg/dL (74-106) 06/04/18 05:30 Hemoglobin A1c % 5.6 % (4.2-6.3) 06/02/18 08:44 Calcium 9.1 mg/dL (8.5-10.1) 06/04/18 05:30 Phosphorus 4.1 mg/dL (2.5-4.9) 06/03/18 06:45 Magnesium 2.0 mg/dL (1.8-2.4) 06/02/18 21:50 Iron 17 ug/dL (27-139) L 06/02/18 09:00 TIBC 265 ug/dL (250-450) 06/02/18 09:00 Iron Saturation 6 % (15-55) L 06/02/18 09:00 Transferrin 200 mg/dL (200-370) 06/02/18 09:00 Ferritin 68.4 ng/ml (8-388) 06/03/18 06:45 Total Bilirubin 0.9 mg/dL (0.2-1) 06/02/18 15:30 AST 27 U/L (15-37) 06/02/18 15:30 ALT 20 U/L (13-61) 06/02/18 15:30 Alkaline Phosphatase 94 U/L (45-117) 06/02/18 15:30 Troponin I 0.02 ng/ml (0.00-0.05) 06/02/18 21:50 C-Reactive Protein 2.9 MG/DL (0.00-0.3) H 06/04/18 05:30 B-Natriuretic Peptide 566.36 pg/ml (5-125) H 06/02/18 15:30 Total Protein 7.7 g/dl (6.4-8.2) 06/02/18 15:30 Albumin 3.2 g/dl (3.4-5.0) L 06/02/18 15:30 Triglycerides 39 mg/dL (0-150) 06/03/18 06:45 Cholesterol 143 mg/dL (50-200) 06/03/18 06:45 Total LDL Cholesterol 46 mg/dL (5-100) 06/03/18 06:45 HDL Cholesterol 86 mg/dL (40-60) H 06/03/18 06:45 Stool Occult Blood Negative (NEGATIVE) 06/02/18 21:47 HIV 1&2 Ag/Ab, 4th Gen Non reactive (Non Reactive) 06/03/18 06:45 M.pneumoniae IgG Titer 561 U/mL (0-99) H 06/02/18 21:50 M.pneumoniae IgM Titer <770 U/mL (0-769) 06/02/18 21:50 Stress Echo 08/02: 1:48 min (SOB). 75% MPHR. BP 140 rest, no change exercise. Non-ischemic stress test by EKG. +Atrial flutter with rapid conduction transiently seen during the recovery period, converting with evidence of brief sinus node arrest and junctional escape rhythm. Echo Findings: (1) No echocardiographic evidence of inducible ischemia--SUBMAX HR. (2) Moderate to severe (eccentric) TR seen. (3) Peak TR gradient is at least 52 mmHg. (4) Resting LV intracavitary gradient of 19 mmHg, rising to 86 mmHg on post- exercise images. (No systolic anterior motion of the mitral valve is seen at rest or post- exercise.) Cardiac CTA 03/03: no L to R shunt evidence. normal pulmonary veins. RV probably normal size. 4.1 cm ascending aorta. echo 05/2018: nl lv, mod dilated rv, mod dec rv fcn, sev denise, mild-mod mr, sev tr, rvsp 40-50, mod ar, mild pr cta lungs 05/2018: no pe, +pna ecg: sr, nl intervals, old IRBBB Echo 03/02 ([facility]): nl LV size and syst fxn; EF 83%. no LVH. slight mid-cavitary gradient (8). LVOT gradient 27 resting, up to 33 with valsalva. no mitral TEJA. dd1. hi LAP. nl LA size. mild-mod RVE, normal function. mild-mod DENISE. severe TR. PASP 67. neg bubble study. Echo 04/2016: 1. The left ventricular size is normal. 2. Overall left ventricular systolic function is normal with, an EF between 65 - 70 %. 3. No regional wall motion abnormalities were noted (apex not well seen). 4. The right ventricle is normal in size and function. 5. Left atrium is mildly dilated by volume. 6. The right atrium is markedly enlarged. 7. 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 8. There is mild aortic regurgitation. 9. The tricuspid valve appears structurally normal. 10. Moderate tricuspid regurgitation present; eccentric jet present, which hugs the interatrial septum--severity may be underestimated. 11. There is moderate pulmonary hypertension. 12. The right ventricular systolic pressure, as measured by Doppler, is 61 mmHg (assuming RA pressure of 3 mmHg). 13. [id number] pulmonic regurgitation. Echo 04/30: nl LV/EF; dd1; nl RV; nl LA; mild DENISE; mild AI; eccentric TR at least moderate; nl LAP; nl RAP; mild pHTN (49); prob mild dilated ascending aorta (3.7); IASA (no PFO) Echo 2013 (at PMD): moderate pulm HTN; 56mmHg Renal dopplers 11/30: L stones, no hydro; normal size kidneys; no RA stenosis V/Q 04/2016: low prob for PE; central airway clumping/abnl ventil c/w airways dx and/or parenchymal dz PFTs 06/01: mild obstructive defect; mild decr DLCO; mild BD response a/p: 72 f hx pulm htn, htn, hld, here with sob, cough. sob, cough: -ct shows pna, sxs improving with abx -pulm, ID following Paroxysmal atrial fibrillation: BRIEF ATRIAL FLUTTER DURING RECOVERY AFTER STRESS ECHO, RAPID HR (170S). THEN SPONTANEOUS PAROXYSM OF FLUTTER SEEN DURING EVENT MONITOR, HR MILDLY RAPID (114), WAS NOT ON AVN BLOCKERS AT THAT TIME. COULD NOT TOLERATE TOPROL 25, THEN LOPRESSOR 12.5 BID DUE TO JUNCTIONAL AND SINUS LISANDRO'S. DEFER AVN BLOCKERS, OBSERVE FOR RECURRENT PALPITATIONS (SHE NOTED SX'S AT TIME OF PAFL). MAY NEED ABLATION IF RECURRENCES FREQUENT OR PROLONGED IN FUTURE. CHADS VASC 4. CONT ELIQUIS DOING htn: -cont current meds hld: -cont statin Pulmonary hypertension, rv dysfunction, sev tr: -chronic condition for patient. she has declined RHC cath/eval by pulm htn specialist numerous times in past. says she will consider it, outpt f/u
--- NOTE | 2018-06-05 15:36 | PN ---
Progress Note (short form) - Note Progress Note: about the same productive cough, less blood Vital Signs Period Temp Pulse Resp BP Sys/Red Pulse Ox Last 24 Hr 98.1 F-98.8 F 79-93 20-20 120-127/68-75 99-99 cor-rrr lungs bilateral rhonchi abd soft,nt ext no edema CBC, BMP 06/05/18 05:30 06/04/18 05:30 sputum afb spear and probe negative (1) Microbiology 06/03/18 19:00 Sputum - Expectorated Gram Stain - Final 06/03/18 19:00 Sputum - Expectorated Sputum Culture - Final Yeast Like Organism 06/03/18 10:36 Sputum - Expectorated AFB Smear Concentration - Final 06/03/18 10:36 Sputum - Expectorated Direct Acid Fast Bacilli Smear - Final 06/03/18 10:36 Sputum - Expectorated Mycobacterial Culture - Preliminary 06/04/18 07:56 Sputum - Expectorated AFB Smear Concentration - Preliminary 06/04/18 07:56 Sputum - Expectorated Direct Acid Fast Bacilli Smear - Final 06/04/18 07:56 Sputum - Expectorated Mycobacterial Culture - Preliminary 06/03/18 15:25 Blood - Peripheral Venous Blood Culture - Preliminary NO GROWTH OBTAINED AFTER 24 HOURS, INCUBATION TO CONTINUE FOR 4 DAYS. 06/03/18 15:25 Blood - Peripheral Venous Blood Culture - Preliminary NO GROWTH OBTAINED AFTER 24 HOURS, INCUBATION TO CONTINUE FOR 4 DAYS. 06/03/18 19:00 Sputum - Expectorated LONNIE Preparation - Preliminary 06/03/18 19:00 Sputum - Expectorated Fungal Culture - Preliminary 06/03/18 08:12 Urine For Antigen Detection Legionella Antigen - Final 06/03/18 08:12 Urine For Antigen Detection Streptococcus pneumoniae Antigen (M - Final a/p bilateral upper lobe infiltrates right greater then left-pretreated with 10 days of levaquin R/O TB, fungal, actino? also malignancy is a possibility would send sputum cytology as well for bronch if sputum unrevealing f/u labs and cu anemia- ?chronic disease murmur- check echo-severe TR with pulmonary HTN continue rocephin for now ? Laboratory Tests 06/03/18 06/04/18 06:45 06:00 ESR 92 H HIV 1&2 Ag/Ab, 4th Gen Non reactive Problem List - Problems (1) Bilateral pulmonary infiltrates on chest x-ray Code(s): R91.8 - OTHER NONSPECIFIC ABNORMAL FINDING OF LUNG FIELD (2) Hemoptysis Code(s): R04.2 - HEMOPTYSIS (3) Anemia Code(s): D64.9 - ANEMIA, UNSPECIFIED
--- NOTE | 2018-06-05 16:45 | PN ---
Physical Exam: SUBJECTIVE: Patient seen and examined at bedside this morning. No acute events overnight. She reports shortness of breath and dyspnea on exertion, which is usually relieved by rest. Denies chest pain, palpitations. OBJECTIVE: Vital Signs Period Temp Pulse Resp BP Sys/Red Pulse Ox Last 24 Hr 98.1 F-98.8 F 79-93 20-20 120-130/57-75 99-99 GENERAL: The patient is awake, alert, and fully oriented, on 2L NC HEAD: Normal with no signs of trauma. EYES: PERRLA, EOMI, sclera anicteric, conjunctiva clear. ENT: Ears normal, nares patent, oropharynx clear without exudates, moist mucous membranes. NECK: Trachea midline, full range of motion, supple. LUNGS: +Rhonchi b/l, no wheezes HEART: Regular rate and rhythm, + systolic murmur ABDOMEN: Soft, nontender, nondistended, normoactive bowel sounds. EXTREMITIES: 2+ pulses, warm, well-perfused, no edema. NEUROLOGICAL: Cranial nerves II through XII grossly intact. Normal speech, normal gait. PSYCH: Normal mood, normal affect. SKIN: Warm, dry, normal turgor, no rashes or lesions noted Laboratory Results - last 24 hr 06/02/18 06/04/18 06/04/18 21:50 17:35 22:38 WBC RBC Hgb Hct MCV MCH MCHC RDW Plt Count MPV Absolute Neuts (auto) Neutrophils % Lymphocytes % Monocytes % Eosinophils % Basophils % Nucleated RBC % POC Glucometer 89 108 TB Test (QFT) Nil 0.02 TB Test (QFT) Mitogen 0.03 TB Test TB - Nil 0.00 TB Test (QFT) Indeterminate TB Positive Criteria No Result Required. TB Test (QFT) Interp 06/05/18 06/05/18 06/05/18 05:30 06:58 11:45 WBC 13.8 H RBC 2.78 L Hgb 8.7 L Hct 26.3 L MCV 94.6 MCH 31.3 MCHC 33.1 RDW 12.9 Plt Count 364 MPV 8.5 Absolute Neuts (auto) 11.1 H Neutrophils % 80.4 Lymphocytes % 12.5 D Monocytes % 6.0 Eosinophils % 0.7 D Basophils % 0.4 Nucleated RBC % 0 POC Glucometer 84 91 TB Test (QFT) Nil TB Test (QFT) Mitogen TB Test TB - Nil TB Test (QFT) TB Positive Criteria TB Test (QFT) Interp Active Medications Generic Name Dose Route Start Last Admin Trade Name Freq PRN Reason Stop Dose Admin Albuterol/Ipratropium 1 amp 06/02/18 20:23 06/04/18 07:54 Duoneb - NEB 1 amp Q4H PRN Administration SHORTNESS OF BREATH Amlodipine Besylate 10 mg 06/03/18 10:00 06/05/18 09:25 Norvasc - PO 10 mg DAILY ANITA Administration Apixaban 5 mg 06/02/18 22:00 06/05/18 09:25 Eliquis - PO 5 mg BID ANITA Administration Atorvastatin Calcium 20 mg 06/02/18 22:00 06/04/18 21:10 Lipitor - PO 20 mg HS ANITA Administration Brimonidine Tartrate 1 drop 06/02/18 22:00 06/05/18 09:27 Alphagan 0.15% - OU 1 drop BID ANITA Administration Hydralazine HCl 100 mg 06/03/18 10:00 06/05/18 09:25 Apresoline - PO 50 mg DAILY ANITA Administration Ceftriaxone Sodium 1 gm/ 50 mls @ 100 mls/hr 06/03/18 10:00 06/05/18 09:24 Dextrose IVPB 100 mls/hr DAILY ANITA Administration Protocol Insulin Aspart 1 vial 06/02/18 22:00 06/05/18 12:02 Novolog Vial Sliding Scale - SQ Not Given ACHS ANITA Protocol Losartan Potassium 50 mg 06/02/18 22:00 06/05/18 09:25 Cozaar - PO 50 mg BID ANITA Administration Imaging Chest/Thorax CTA No evidence of pulmonary artery emboli. Bilateral patchy infiltrates with consolidates within the right upper lobe which appear unchanged form prior imaging. Chest CT without contrast In comparison to prior studies note is made of interval development of extensive bilateral upper lobe alveolar infiltrates, right more than left. Smaller bilateral lower lobe infiltrates are also seen. Cardiomegaly. Probably dilatation of the main pulmonary artery suggestive of increased pulmonary arterial pressure. Chest X-ray Extremely abnormal CXR with new pulmonary findings and persistently enlarged heart. Echo Clinical correlation is recommended. Right ventricular systolic pressure is elevated at 40-50 mmHg. There is severe tricuspid regurgitation. The right ventricle is moderately dilated. The right ventricular systolic function is moderately reduced. The right atrium is severely dilated. E/A reversal consistent with but not diagnostic of poor LV compliance. The left ventricular wall motion is normal. The left ventricular EF is normal. The left ventricular size, thickness, and function are normal. Microbiology 06/03/18 15:25 Blood - Peripheral Venous Blood Culture - Preliminary NO GROWTH OBTAINED AFTER 48 HOURS, INCUBATION TO CONTINUE FOR 3 DAYS. 06/03/18 15:25 Blood - Peripheral Venous Blood Culture - Preliminary NO GROWTH OBTAINED AFTER 48 HOURS, INCUBATION TO CONTINUE FOR 3 DAYS. 06/03/18 19:00 Sputum - Expectorated Gram Stain - Final 06/03/18 19:00 Sputum - Expectorated Sputum Culture - Final Yeast Like Organism 06/03/18 10:36 Sputum - Expectorated AFB Smear Concentration - Final 06/03/18 10:36 Sputum - Expectorated Direct Acid Fast Bacilli Smear - Final 06/03/18 10:36 Sputum - Expectorated Mycobacterial Culture - Preliminary 06/04/18 07:56 Sputum - Expectorated AFB Smear Concentration - Preliminary 06/04/18 07:56 Sputum - Expectorated Direct Acid Fast Bacilli Smear - Final 06/04/18 07:56 Sputum - Expectorated Mycobacterial Culture - Preliminary 06/03/18 19:00 Sputum - Expectorated LONNIE Preparation - Preliminary 06/03/18 19:00 Sputum - Expectorated Fungal Culture - Preliminary 06/03/18 08:12 Urine For Antigen Detection Legionella Antigen - Final 06/03/18 08:12 Urine For Antigen Detection Streptococcus pneumoniae Antigen (M - Final ASSESSMENT/PLAN: Patient is a 72 year old female who presented with worsening dyspnea on exertion and hemoptysis for about 3 weeks. #Hemoptysis and PANIAGUA: likely 2/2 CAP, rule out TB -CTA revealed no evidence of pulmonary artery emboli. Bilateral patchy infiltrates with consolidates within the right upper lobe which appear unchanged from prior imaging. -Chest X-Ray revealed mid and upper lung field densities with bilateral infiltrates. -WBC is trending down to 13.8. Will continue to trend WBC. -AFB smear negative, AFB Sputum cultures negative x2. -Quantiferon TB test: Indeterminate. -Urine legionella is negative. -Mycoplasma IgG -5.61 (high) and IgM -<770 -HIV 1&2 nonreactive. -Pulmonary (Dr. Almeida) consulted. Recommendations appreciated: -Continue Ceftriaxone 1gm daily Day 3. -Hold Azithromycin until TB is ruled out. -Airborne isolation. -Duoneb PRN -Monitor/quantify hemoptysis. -Available for bronchoscopy if sputum samples unrevealing. -ID (Dr. Mckeon) consulted. Recommendations appreciated. -Fungal culture - negative -ESR 92 / CRP 2.9 -Continue Ceftriaxone. -Echo ordered. #Pulmonary Hypertension -Echo -RV systolic pressure elevated at 40-50 mmHg. Severe TR. RV is moderately dilated. RV systolic function is moderately reduced. RA is severe dilated. -Cardiology (Dr. Gutierres) consulted. Recommendations appreciated: -Chronic condition for patient. She has declined right heart cath/eval by pulmonary HTN specialist numerous times in the past. -Says she will consider it as outpatient follow-up. #Normocytic Anemia -Possibly secondary to possibly lung pathology and inflammation. -Iron studies pending. -Stool Guaic - negative -Retic ct - 2.56 -Continue Eliquis unless hgb/hct drops significantly -Will monitor H/H #Hyponatremia: resolved -Na today is 139. 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 K is 4.6. -Mg 2.6, Ph 4.1 -Continue to monitor BMP #NIDDMII -Patient was previously on Januvia and Metformin. -Reports that her primary care discontinued all her medications and is currently just on diet and exercise. -A1C - 5.6 -BGM and ISS ACHS #HTN -Continue home medication with Hydralazine 100mg daily, Amlodipine 10mg daily, and Increase Losartan to 50mg BID -Continue to monitor BP #HLD -Continue Lipitor 20mg HS -Lipid panel ordered #Atrial Fibrillation -Rate controlled -Continue Eliquis 5mg BID. If hgb drops or patient has worsening hemoptysis. Will discontinue. #F/E/N -Not on any standing fluids. -Encourage increased oral fluid intake. -Electrolytes wnl. -Sodium restricted/Diabetic diet. #Prophylaxis -Patient on Eliquis #Disposition -Full code -Airborne isolation Visit type - Emergency Visit Emergency Visit: Yes ED Registration Date: 06/02/18 Care time: The patient presented to the Emergency Department on the above date and was hospitalized for further evaluation of their emergent condition. - New Patient This patient is new to me today: Yes Date on this admission: 06/05/18 - Critical Care Critical Care patient: No
--- NOTE | 2018-06-05 17:34 | PN ---
Teaching Attending Note Name of Resident: Elsy Johnston ATTENDING PHYSICIAN STATEMENT I saw and evaluated the patient. I reviewed the resident's note and discussed the case with the resident. I agree with the resident's findings and plan as documented. SUBJECTIVE:cough but barely any hemptysis. dyspnea on exertion. deneis Cp, fever , chills, night sweats OBJECTIVE: Last Vital Signs Temp Pulse Resp BP Pulse Ox 98.6 F 83 20 130/57 99 06/05/18 14:00 06/05/18 14:00 06/05/18 10:00 06/05/18 14:00 06/05/18 09:00 General NAD CV S1 S2 RRR +murmur Lungs coarse breath sounds R upper/middle lobe ASSESSMENT AND PLAN: 72yo F wtih PMH DM which is diet controlled, HTN, AFib on eliquis, asthma presented to the ER with hemoptysis and cough 1. Hemoptysis- possible irritation from frequent coughing however concern for TB. no more active hemoptysis. Hgb now stable. will monitor. 2. Acute hypoxic respiratory distress- currently 95% on 2L NC. desaturates to 82 % on RA. due to multilobar PNA but will need to r/o TB and malignancy. on ceftriaxone day 3. was recently on levaquin as outpatient. AFB neg x1. awaiting repeat AFB. QFT indeterminate. sputum Cx. may need bronch. ID and pulmonary on board. airborne precautions. 3. Hyponatremia- resolved 4. hypokalemia- resolved 5. Anemia-+iron deficiency. unknown baseline. Hgb improved today. no indication for transfusion. start iron supplementation. counseled on side effect of iron supplements including black stools and constipation 6. afib- rate controlled. cont current management. will cont eliquis as hgb has been stable. may need to hold if worsens or hgb trends down 7. DM- diet controlled. check A1c. will d/c BGM and iss as been stable for past 4 days. 8. HTN- controlled. cont current management 9. DVT ppx- eliquis.
[2018-06-05] MEDS: ATORVASTATIN CA 20 MG TABLET (FP) PO SCH (22:10)
[2018-06-06] MEDS: INSULIN SLIDING SCALE (NOVOLOG) 1 VIAL SQ SCH (06:02)
[2018-06-06 06:56] LABS: BASO % 0.4 % (0-2.0); EOS % 1.5 % (0-4.5); HEMATOCRIT 20.7 % (32.4-45.2); LYMPH % 10.1 % (8-40); MCH 31.1 pg (25.7-33.7); MCHC 32.9 g/dl (32.0-36.0); MEAN CELL VOLUME 94.7 fl (80-96); MEAN PLT VOLUME 8.4 fl (7.5-11.1); MONO % 6.5 % (3.8-10.2); NEUT % 81.5 % (42.8-82.8); PLATELET COUNT 292 K/MM3 (134-434); RBC 2.18 M/mm3 (3.60-5.2); RDW 12.9 % (11.6-15.6); WHITE BLOOD COUNT 12.2 K/mm3 (4.0-10.0)
[2018-06-06 07:36] LABS: HEMOGLOBIN 6.8 GM/dL (10.7-15.3)
[2018-06-06 08:07] LABS: SERUM IRON SATURATION 15 % (15-55); TOTAL IRON BINDING CAPACITY 218 ug/dL (250-450); UIBC 185 ug/dL (118-369)
[2018-06-06 10:47] LABS: HEMATOCRIT 22.6 % (32.4-45.2); HEMOGLOBIN 7.5 GM/dL (10.7-15.3); MCH 31.5 pg (25.7-33.7); MCHC 33.3 g/dl (32.0-36.0); MEAN CELL VOLUME 94.5 fl (80-96); PLATELET COUNT 356 K/MM3 (134-434); RBC 2.39 M/mm3 (3.60-5.2); RDW 12.9 % (11.6-15.6); WHITE BLOOD COUNT 13.2 K/mm3 (4.0-10.0)
--- NOTE | 2018-06-06 10:49 | PN ---
Progress Note (short form) - Note Progress Note: s: no cp palps dizzy. sob better. cough better Current Medications Generic Name Dose Route Start Last Admin Trade Name Freq PRN Reason Stop Dose Admin Albuterol/Ipratropium 1 amp 06/02/18 20:23 06/04/18 07:54 Duoneb - NEB 1 amp Q4H PRN Administration SHORTNESS OF BREATH Amlodipine Besylate 10 mg 06/03/18 10:00 06/05/18 09:25 Norvasc - PO 10 mg DAILY ANITA Administration Apixaban 5 mg 06/02/18 22:00 06/05/18 22:11 Eliquis - PO 5 mg BID ANITA Administration Atorvastatin Calcium 20 mg 06/02/18 22:00 06/05/18 22:10 Lipitor - PO 20 mg HS ANITA Administration Brimonidine Tartrate 1 drop 06/02/18 22:00 06/05/18 22:11 Alphagan 0.15% - OU 1 drop BID ANITA Administration Hydralazine HCl 100 mg 06/03/18 10:00 06/05/18 09:25 Apresoline - PO 50 mg DAILY ANITA Administration Ceftriaxone Sodium 1 gm/ 50 mls @ 100 mls/hr 06/03/18 10:00 06/05/18 09:24 Dextrose IVPB 100 mls/hr DAILY ANITA Administration Protocol Losartan Potassium 50 mg 06/06/18 10:00 Cozaar - PO DAILY ANITA Vital Signs Period Temp Pulse Resp BP Sys/Red Pulse Ox Last 24 Hr 98.3 F-98.7 F 77-102 20-20 127-143/57-79 97 nad no jvd rrr s1s2 no mrg cta bl, nl eff aao3 trace le edema bl, no c/c abd nt nd pos bs no jaundice diaphoresis CBC, BMP 06/04/18 05:30 Stress Echo 08/02: 1:48 min (SOB). 75% MPHR. BP 140 rest, no change exercise. Non-ischemic stress test by EKG. +Atrial flutter with rapid conduction transiently seen during the recovery period, converting with evidence of brief sinus node arrest and junctional escape rhythm. Echo Findings: (1) No echocardiographic evidence of inducible ischemia--SUBMAX HR. (2) Moderate to severe (eccentric) TR seen. (3) Peak TR gradient is at least 52 mmHg. (4) Resting LV intracavitary gradient of 19 mmHg, rising to 86 mmHg on post- exercise images. (No systolic anterior motion of the mitral valve is seen at rest or post- exercise.) Cardiac CTA 03/03: no L to R shunt evidence. normal pulmonary veins. RV probably normal size. 4.1 cm ascending aorta. echo 05/2018: nl lv, mod dilated rv, mod dec rv fcn, sev denise, mild-mod mr, sev tr, rvsp 40-50, mod ar, mild pr cta lungs 05/2018: no pe, +pna ecg: sr, nl intervals, old IRBBB Echo 03/02 ([facility]): nl LV size and syst fxn; EF 83%. no LVH. slight mid-cavitary gradient (8). LVOT gradient 27 resting, up to 33 with valsalva. no mitral TEJA. dd1. hi LAP. nl LA size. mild-mod RVE, normal function. mild-mod DENISE. severe TR. PASP 67. neg bubble study. Echo 04/2016: 1. The left ventricular size is normal. 2. Overall left ventricular systolic function is normal with, an EF between 65 - 70 %. 3. No regional wall motion abnormalities were noted (apex not well seen). 4. The right ventricle is normal in size and function. 5. Left atrium is mildly dilated by volume. 6. The right atrium is markedly enlarged. 7. 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 8. There is mild aortic regurgitation. 9. The tricuspid valve appears structurally normal. 10. Moderate tricuspid regurgitation present; eccentric jet present, which hugs the interatrial septum--severity may be underestimated. 11. There is moderate pulmonary hypertension. 12. The right ventricular systolic pressure, as measured by Doppler, is 61 mmHg (assuming RA pressure of 3 mmHg). 13. [id number] pulmonic regurgitation. Echo 04/30: nl LV/EF; dd1; nl RV; nl LA; mild DENISE; mild AI; eccentric TR at least moderate; nl LAP; nl RAP; mild pHTN (49); prob mild dilated ascending aorta (3.7); IASA (no PFO) Echo 2013 (at PMD): moderate pulm HTN; 56mmHg Renal dopplers 11/30: L stones, no hydro; normal size kidneys; no RA stenosis V/Q 04/2016: low prob for PE; central airway clumping/abnl ventil c/w airways dx and/or parenchymal dz PFTs 06/01: mild obstructive defect; mild decr DLCO; mild BD response a/p: 72 f hx pulm htn, htn, hld, here with sob, cough. sob, cough: -ct shows pna, sxs improving with abx -pulm, ID following Paroxysmal atrial fibrillation: BRIEF ATRIAL FLUTTER DURING RECOVERY AFTER STRESS ECHO, RAPID HR (170S). THEN SPONTANEOUS PAROXYSM OF FLUTTER SEEN DURING EVENT MONITOR, HR MILDLY RAPID (114), WAS NOT ON AVN BLOCKERS AT THAT TIME. COULD NOT TOLERATE TOPROL 25, THEN LOPRESSOR 12.5 BID DUE TO JUNCTIONAL AND SINUS LISANDRO'S. DEFER AVN BLOCKERS, OBSERVE FOR RECURRENT PALPITATIONS (SHE NOTED SX'S AT TIME OF PAFL). MAY NEED ABLATION IF RECURRENCES FREQUENT OR PROLONGED IN FUTURE. CHADS VASC 4. CONT ELIQUIS DOING htn: -cont current meds hld: -cont statin Pulmonary hypertension, rv dysfunction, sev tr: -chronic condition for patient. she has declined RHC cath/eval by pulm htn specialist numerous times in past. says she will consider it, outpt f/u cardiac craven remains stable
[2018-06-06] MEDS ORDERED: PT OWN MED DRAWER 7, Y5N ONE (10:58)
[2018-06-06] MEDS: APIXABAN 5 MG TABLET PO SCH ×2 (11:14→21:34)
[2018-06-06] MEDS: CEFTRIAXONE 1 GM in DEXTROSE 5%-WATER - 50 ML IVPB SCH (11:14)
[2018-06-06] MEDS: BRIMONIDINE TARTRATE 0.15% OPHTHALMIC 5 ML BOTTLE OU SCH ×2 (11:15→21:34)
[2018-06-06] MEDS: hydrALAZINE HCL 50 MG TABLET (FP) PO SCH (11:15)
[2018-06-06] MEDS: amLODIPine BESYLATE 10 MG TABLET (FP) PO SCH (11:15)
[2018-06-06] MEDS: LOSARTAN POTASSIUM 50 MG TABLET (FP) PO SCH (11:15)
--- NOTE | 2018-06-06 11:22 | PN ---
Progress Note, Physician History of Present Illness: pulmonary alert,feeling better,less cough,less hemoptysis - Current Medication List Current Medications: Active Medications Albuterol/Ipratropium (Duoneb -) 1 amp NEB Q4H PRN PRN Reason: SHORTNESS OF BREATH Last Admin: 06/04/18 07:54 Dose: 1 amp Amlodipine Besylate (Norvasc -) 10 mg PO DAILY [facility] Last Admin: 06/06/18 11:15 Dose: 10 mg Apixaban (Eliquis -) 5 mg PO BID [facility] Last Admin: 06/06/18 11:14 Dose: 5 mg Atorvastatin Calcium (Lipitor -) 20 mg PO HS [facility] Last Admin: 06/05/18 22:10 Dose: 20 mg Brimonidine Tartrate (Alphagan 0.15% -) 1 drop OU BID [facility] Last Admin: 06/06/18 11:15 Dose: 1 drop Hydralazine HCl (Apresoline -) 100 mg PO DAILY [facility] Last Admin: 06/06/18 11:15 Dose: 100 mg Ceftriaxone Sodium 1 gm/ (Dextrose) 50 mls @ 100 mls/hr IVPB DAILY [facility]; Protocol Last Admin: 06/06/18 11:14 Dose: 100 mls/hr Losartan Potassium (Cozaar -) 50 mg PO DAILY [facility] Last Admin: 06/06/18 11:15 Dose: 50 mg - Objective Vital Signs: Vital Signs Temperature 98.5 F 06/06/18 06:00 Pulse Rate 78 06/06/18 06:00 Respiratory Rate 20 06/06/18 06:00 Blood Pressure 128/58 06/06/18 06:00 O2 Sat by Pulse Oximetry (%) 97 06/05/18 20:32 Constitutional: Yes: Well Nourished, Calm Eyes: Yes: WNL HENT: Yes: WNL Neck: Yes: WNL Cardiovascular: Yes: Pulse Irregular, S1, S2 Respiratory: Yes: Rales (scattered crackles) Gastrointestinal: Yes: Normal Bowel Sounds, Soft Extremities: Yes: WNL Edema: No Labs: CBC, BMP 06/06/18 10:35 06/04/18 05:30 INR, PTT INR 1.53 (0.83-1.09) H 06/03/18 06:45 Assessment/Plan Problem List - Problems (1) Hemoptysis Code(s): R04.2 - HEMOPTYSIS (2) Pneumonia Code(s): J18.9 - PNEUMONIA, UNSPECIFIED ORGANISM (3) Pulmonary HTN Code(s): I27.20 - PULMONARY HYPERTENSION, UNSPECIFIED (4) Asthma Code(s): J45.909 - UNSPECIFIED ASTHMA, UNCOMPLICATED Assessment/Plan Bilateral Pneumonia r/o TB Hemoptysis improving Pulmonary HTN Asthma Atrial Fibrillation HTN DM ANEMIA - antibiotics - hold further azithromycin until TB ruled out - ac - inhaled bronchodilators - monitor/quantify hemoptysis - available for bronchoscopy if sputum samples unrevealing - DVT prophylaxis - f/u chest x-rays - normal transfusilon threshold DR LANCE
--- NOTE | 2018-06-06 11:28 | PN ---
Teaching Attending Note Name of Resident: Elsy Johnston ATTENDING PHYSICIAN STATEMENT I saw and evaluated the patient. I reviewed the resident's note and discussed the case with the resident. I agree with the resident's findings and plan as documented. SUBJECTIVE:some hemoptysis. scant amount seen in the cup. no dyspnea at rest but some when going to the restroom. denies CP, fever,chills, nightsweats, N/V/C /d OBJECTIVE: Last Vital Signs Temp Pulse Resp BP Pulse Ox 98.5 F 78 20 128/58 97 06/06/18 06:00 06/06/18 06:00 06/06/18 06:00 06/06/18 06:00 06/05/18 20:32 General NAD CV S1 S2 RRR +murmur Lungs coarse breath sounds R upper lobe no wheezing ASSESSMENT AND PLAN: 72yo F wtih PMH DM which is diet controlled, HTN, AFib on eliquis, asthma presented to the ER with hemoptysis and cough 1. Hemoptysis- possible irritation from frequent coughing however concern for TB. some scant hemoptysis. Hgb low this AM will repeat if remains low will transfuse. on eliquis 2. Acute hypoxic respiratory distress- slowly improving. currently 92% on RA. due to multilobar PNA but will need to r/o TB and malignancy. on ceftriaxone day 4. was recently on levaquin as outpatient. AFB neg x1. awaiting repeat AFB. QFT indeterminate. sputum Cx. may need bronch. ID and pulmonary on board. airborne precautions. mycoplasma negative 3. Hyponatremia- resolved 4. hypokalemia- resolved 5. Anemia-+iron deficiency. unknown baseline. Hgb dropped today. will repeat as pt hemoptysis is less than before. normal txn thresholds. no indication for transfusion. start iron supplementation. counseled on side effect of iron supplements including black stools and constipation 6. afib- rate controlled. cont current management. will cont eliquis. may need to hold if worsens or hgb trends down 7. DM- diet controlled. check A1c. BGM and iss 8. HTN- controlled. cont current management 9. DVT ppx- eliquis.
--- NOTE | 2018-06-06 15:05 | PN ---
Progress Note (short form) - Note Progress Note: about the same productive cough, less blood no new complaints 2 Vital Signs Period Temp Pulse Resp BP Sys/Red Pulse Ox Last 24 Hr 98.3 F-98.7 F 77-102 20-20 127-143/58-79 97 cor-rrr lungs clear abd soft,nt ext +edema CBC, BMP 06/06/18 10:35 06/04/18 05:30 Microbiology 06/05/18 16:00 Sputum - Expectorated Direct Acid Fast Bacilli Smear - Final 06/04/18 07:56 Sputum - Expectorated AFB Smear Concentration - Final 06/04/18 07:56 Sputum - Expectorated Direct Acid Fast Bacilli Smear - Final 06/04/18 07:56 Sputum - Expectorated Mycobacterial Culture - Preliminary 06/03/18 15:25 Blood - Peripheral Venous Blood Culture - Preliminary NO GROWTH OBTAINED AFTER 48 HOURS, INCUBATION TO CONTINUE FOR 3 DAYS. 06/03/18 15:25 Blood - Peripheral Venous Blood Culture - Preliminary NO GROWTH OBTAINED AFTER 48 HOURS, INCUBATION TO CONTINUE FOR 3 DAYS. 06/03/18 19:00 Sputum - Expectorated Gram Stain - Final 06/03/18 19:00 Sputum - Expectorated Sputum Culture - Final Yeast Like Organism 06/03/18 10:36 Sputum - Expectorated AFB Smear Concentration - Final 06/03/18 10:36 Sputum - Expectorated Direct Acid Fast Bacilli Smear - Final 06/03/18 10:36 Sputum - Expectorated Mycobacterial Culture - Preliminary 06/03/18 19:00 Sputum - Expectorated LONNIE Preparation - Preliminary 06/03/18 19:00 Sputum - Expectorated Fungal Culture - Preliminary 06/03/18 08:12 Urine For Antigen Detection Legionella Antigen - Final 06/03/18 08:12 Urine For Antigen Detection Streptococcus pneumoniae Antigen (M - Final sputum afb negative times 2 third pending quantiferon indeterminate Current Medications Albuterol/Ipratropium (Duoneb -) 1 amp NEB Q4H PRN PRN Reason: SHORTNESS OF BREATH Last Admin: 06/04/18 07:54 Dose: 1 amp Amlodipine Besylate (Norvasc -) 10 mg PO DAILY [facility] Last Admin: 06/06/18 11:15 Dose: 10 mg Apixaban (Eliquis -) 5 mg PO BID [facility] Last Admin: 06/06/18 11:14 Dose: 5 mg Atorvastatin Calcium (Lipitor -) 20 mg PO HS ANITA Last Admin: 06/05/18 22:10 Dose: 20 mg Brimonidine Tartrate (Alphagan 0.15% -) 1 drop OU BID [facility] Last Admin: 06/06/18 11:15 Dose: 1 drop Ferrous Sulfate (Feosol -) 325 mg PO DAILY ANITA Hydralazine HCl (Apresoline -) 100 mg PO DAILY [facility] Last Admin: 06/06/18 11:15 Dose: 100 mg Ceftriaxone Sodium 1 gm/ (Dextrose) 50 mls @ 100 mls/hr IVPB DAILY [facility]; Protocol Last Admin: 06/06/18 11:14 Dose: 100 mls/hr Losartan Potassium (Cozaar -) 50 mg PO DAILY [facility] Last Admin: 06/06/18 11:15 Dose: 50 mg a/p bilateral upper lobe infiltrates right greater then left-pretreated with 10 days of levaquin R/O TB, fungal, actino? also malignancy is a possibility would send sputum cytology as well for bronch if sputum unrevealing f/u labs and cultures anemia- ?chronic disease murmur- check echo-severe TR with pulmonary HTN continue rocephin for now repeat cxray in am ? Problem List - Problems (1) Bilateral pulmonary infiltrates on chest x-ray Code(s): R91.8 - OTHER NONSPECIFIC ABNORMAL FINDING OF LUNG FIELD (2) Hemoptysis Code(s): R04.2 - HEMOPTYSIS (3) Anemia Code(s): D64.9 - ANEMIA, UNSPECIFIED
--- NOTE | 2018-06-06 16:35 | PN ---
Physical Exam: SUBJECTIVE: Patient seen and examined at bedside this morning. No acute events overnights. She still has hemoptysis. Otherwise, she has no new complaints. OBJECTIVE: Vital Signs Period Temp Pulse Resp BP Sys/Red Pulse Ox Last 24 Hr 98.3 F-98.7 F 77-102 20-20 127-143/58-79 97 GENERAL: The patient is awake, alert, and fully oriented, on 2L NC HEAD: Normal with no signs of trauma. EYES: PERRLA, EOMI, sclera anicteric, conjunctiva clear. ENT: Ears normal, nares patent, oropharynx clear without exudates, moist mucous membranes. NECK: Trachea midline, full range of motion, supple. LUNGS: +Rhonchi b/l, no wheezes HEART: Regular rate and rhythm, + systolic murmur ABDOMEN: Soft, nontender, nondistended, normoactive bowel sounds. EXTREMITIES: 2+ pulses, warm, well-perfused, no edema. NEUROLOGICAL: Cranial nerves II through XII grossly intact. Normal speech, normal gait. PSYCH: Normal mood, normal affect. SKIN: Warm, dry, normal turgor, no rashes or lesions noted Laboratory Results - last 24 hr 06/02/18 06/04/18 06/05/18 21:50 05:30 17:03 WBC RBC Hgb Hct MCV MCH MCHC RDW Plt Count MPV Absolute Neuts (auto) Neutrophils % Lymphocytes % Monocytes % Eosinophils % Basophils % Nucleated RBC % POC Glucometer 95 Iron 33 TIBC 218 L Iron Saturation 15 TB Test (QFT) Nil 0.02 TB Test (QFT) Mitogen 0.03 TB Test TB - Nil 0.00 TB Test (QFT) Ideterminate TB Positive Criteria No Result Required. TB Test (QFT) Interp Blood Type Antibody Screen Crossmatch 06/05/18 06/06/18 06/06/18 22:13 05:30 05:58 WBC 12.2 H RBC 2.18 L Hgb 6.8 L* Hct 20.7 L D MCV 94.7 MCH 31.1 MCHC 32.9 RDW 12.9 Plt Count 292 MPV 8.4 Absolute Neuts (auto) 9.9 H Neutrophils % 81.5 Lymphocytes % 10.1 Monocytes % 6.5 Eosinophils % 1.5 D Basophils % 0.4 Nucleated RBC % 0 POC Glucometer 108 89 Iron TIBC Iron Saturation TB Test (QFT) Nil TB Test (QFT) Mitogen TB Test TB - Nil TB Test (QFT) TB Positive Criteria TB Test (QFT) Interp Blood Type Antibody Screen Crossmatch 06/06/18 06/06/18 06/06/18 09:25 09:53 10:35 WBC 13.2 H RBC 2.39 L Hgb 7.5 L Hct 22.6 L MCV 94.5 MCH 31.5 MCHC 33.3 RDW 12.9 Plt Count 356 D MPV 8.0 Absolute Neuts (auto) Neutrophils % Lymphocytes % Monocytes % Eosinophils % Basophils % Nucleated RBC % POC Glucometer Iron TIBC Iron Saturation TB Test (QFT) Nil TB Test (QFT) Mitogen TB Test TB - Nil TB Test (QFT) TB Positive Criteria TB Test (QFT) Interp Blood Type B POSITIVE B POSITIVE Antibody Screen Negative Crossmatch See Detail Active Medications Generic Name Dose Route Start Last Admin Trade Name Freq PRN Reason Stop Dose Admin Albuterol/Ipratropium 1 amp 06/02/18 20:23 06/04/18 07:54 Duoneb - NEB 1 amp Q4H PRN Administration SHORTNESS OF BREATH Amlodipine Besylate 10 mg 06/03/18 10:00 06/06/18 11:15 Norvasc - PO 10 mg DAILY ANITA Administration Apixaban 5 mg 06/02/18 22:00 06/06/18 11:14 Eliquis - PO 5 mg BID ANITA Administration Atorvastatin Calcium 20 mg 06/02/18 22:00 06/05/18 22:10 Lipitor - PO 20 mg HS ANITA Administration Brimonidine Tartrate 1 drop 06/02/18 22:00 06/06/18 11:15 Alphagan 0.15% - OU 1 drop BID ANITA Administration Ferrous Sulfate 325 mg 06/06/18 11:30 Feosol - PO DAILY ANITA Hydralazine HCl 100 mg 06/03/18 10:00 06/06/18 11:15 Apresoline - PO 100 mg DAILY ANITA Administration Ceftriaxone Sodium 1 gm/ 50 mls @ 100 mls/hr 06/03/18 10:00 06/06/18 11:14 Dextrose IVPB 100 mls/hr DAILY ANITA Administration Protocol Losartan Potassium 50 mg 06/06/18 10:00 06/06/18 11:15 Cozaar - PO 50 mg DAILY ANITA Administration ASSESSMENT/PLAN: Imaging Chest/Thorax CTA No evidence of pulmonary artery emboli. Bilateral patchy infiltrates with consolidates within the right upper lobe which appear unchanged form prior imaging. Chest CT without contrast In comparison to prior studies note is made of interval development of extensive bilateral upper lobe alveolar infiltrates, right more than left. Smaller bilateral lower lobe infiltrates are also seen. Cardiomegaly. Probably dilatation of the main pulmonary artery suggestive of increased pulmonary arterial pressure. Chest X-ray Extremely abnormal CXR with new pulmonary findings and persistently enlarged heart. Echo Clinical correlation is recommended. Right ventricular systolic pressure is elevated at 40-50 mmHg. There is severe tricuspid regurgitation. The right ventricle is moderately dilated. The right ventricular systolic function is moderately reduced. The right atrium is severely dilated. E/A reversal consistent with but not diagnostic of poor LV compliance. The left ventricular wall motion is normal. The left ventricular EF is normal. The left ventricular size, thickness, and function are normal. Microbiology 06/03/18 15:25 Blood - Peripheral Venous Blood Culture - Preliminary NO GROWTH OBTAINED AFTER 48 HOURS, INCUBATION TO CONTINUE FOR 3 DAYS. 06/03/18 15:25 Blood - Peripheral Venous Blood Culture - Preliminary NO GROWTH OBTAINED AFTER 48 HOURS, INCUBATION TO CONTINUE FOR 3 DAYS. 06/03/18 19:00 Sputum - Expectorated Gram Stain - Final 06/03/18 19:00 Sputum - Expectorated Sputum Culture - Final Yeast Like Organism 06/03/18 10:36 Sputum - Expectorated AFB Smear Concentration - Final 06/03/18 10:36 Sputum - Expectorated Direct Acid Fast Bacilli Smear - Final 06/03/18 10:36 Sputum - Expectorated Mycobacterial Culture - Preliminary 06/04/18 07:56 Sputum - Expectorated AFB Smear Concentration - Preliminary 06/04/18 07:56 Sputum - Expectorated Direct Acid Fast Bacilli Smear - Final 06/04/18 07:56 Sputum - Expectorated Mycobacterial Culture - Preliminary 06/03/18 19:00 Sputum - Expectorated LONNIE Preparation - Preliminary 06/03/18 19:00 Sputum - Expectorated Fungal Culture - Preliminary 06/03/18 08:12 Urine For Antigen Detection Legionella Antigen - Final 06/03/18 08:12 Urine For Antigen Detection Streptococcus pneumoniae Antigen (M - Final ASSESSMENT/PLAN: Patient is a 72 year old female who presented with worsening dyspnea on exertion and hemoptysis for about 3 weeks. #Hemoptysis and PANIAGUA: likely 2/2 CAP, rule out TB -WBC is trending down to 12.2. Will continue to trend WBC. -AFB smear negative, AFB Sputum cultures negative x2. Pending 3rd AFB culture. -Quantiferon TB test: Indeterminate. -Urine legionella is negative. -Mycoplasma IgG -5.61 (high) and IgM -<770 -HIV 1&2 nonreactive. -Pulmonary (Dr. Almeida) consulted. Recommendations appreciated: -Continue Ceftriaxone 1gm daily Day 4. -Hold Azithromycin until TB is ruled out. Pending 3rd AFB culture. -Airborne isolation. -Duoneb PRN -Monitor/quantify hemoptysis. -Available for bronchoscopy if sputum samples unrevealing. -ID (Dr. Mckeon) consulted. Recommendations appreciated. -Fungal culture - negative -ESR 92 / CRP 2.9 -Continue Ceftriaxone. -Echo ordered. #Pulmonary Hypertension -Echo -RV systolic pressure elevated at 40-50 mmHg. Severe TR. RV is moderately dilated. RV systolic function is moderately reduced. RA is severe dilated. -Cardiology (Dr. Gutierres) consulted. Recommendations appreciated: -Chronic condition for patient. She has declined right heart cath/eval by pulmonary HTN specialist numerous times in the past. -Says she will consider it as outpatient follow-up. #Normocytic Anemia -Possibly secondary to possibly lung pathology and inflammation. -Hgb today initially 6.8, repeat CBC showed Hgb of 7.5. -Iron 33, TIBC 218, Iron saturation 15, Ferritin 68.4 -Stool Guaic - negative -Retic ct - 2.56 -Continue Eliquis unless hgb/hct drops significantly -Will monitor H/H #Hyponatremia: resolved -Likely SIADH from lung pathology and possible hyperglycemia #Hypokalemia: resolved #NIDDMII -Patient was previously on Januvia and Metformin. -Reports that her primary care discontinued all her medications and is currently just on diet and exercise. -A1C - 5.6 -BGM and ISS ACHS #HTN -Continue home medication with Hydralazine 100mg daily, Amlodipine 10mg daily, and Increase Losartan to 50mg BID -Continue to monitor BP #HLD -Continue Lipitor 20mg HS -Lipid panel ordered #Atrial Fibrillation -Rate controlled -Continue Eliquis 5mg BID. If hgb drops or patient has worsening hemoptysis. Will discontinue. #F/E/N -Not on any standing fluids. -Encourage increased oral fluid intake. -Electrolytes wnl. -Sodium restricted/Diabetic diet. #Prophylaxis -Patient on Eliquis #Disposition -Full code -Airborne isolation Visit type - Emergency Visit Emergency Visit: Yes ED Registration Date: 06/02/18 Care time: The patient presented to the Emergency Department on the above date and was hospitalized for further evaluation of their emergent condition. - New Patient This patient is new to me today: Yes Date on this admission: 06/06/18 - Critical Care Critical Care patient: No
[2018-06-06] MEDS: FERROUS SO4 325 MG TABLET (FP) PO SCH (17:12)
--- NOTE | 2018-06-06 21:26 | CON.NEP ---
Consult Consult Specialty:: Nephrology Referred by:: Called by the patient Reason for Consultation:: History of bilateral renal cysts - History of Present Illness Chief Complaint: cough with hemoptysis History of Present Illness: 72 year old female with history of type 2 diabetes mellitus, hypertension, atrial fibrillation, renal cyst and adrenal lesion seen in the office about two weeks admitted with bilateral pneumonia with hypoxemia and hemoptysis Patient caled today to notify my office that she was on admission as above. Patient denies any associated nausea, vomiting or diarrhea. - History Source History Provided By: Patient Limitations to Obtaining History: No Limitations - Past Medical History Cardio/Vascular: Yes: AFIB, HTN, Hyperlipdemia Pulmonary: Yes: Asthma Renal/: Yes: Other (renal cyst and adrenal lesion) ...: No Endocrine: Yes: Diabetes Mellitus - Alcohol/Substance Use Hx Alcohol Use: No History of Substance Use: reports: None - Smoking History Smoking history: Never smoked Home Medications - Allergies Allergies/Adverse Reactions: Allergies Allergy/AdvReac Type Severity Reaction Status Date / Time No Known Allergies Allergy Verified 06/02/18 14:49 - Home Medications Home Medications: Ambulatory Orders Albuterol Sulfate [Proair Hfa] 8.5 gm IH DAILY 06/02/18 Amlodipine Besylate 10 mg PO DAILY 06/02/18 Apixaban [Eliquis] 5 mg PO BID 06/02/18 Atorvastatin Calcium 20 mg PO DAILY 06/02/18 Brimonidine Tartrate [Alphagan 0.15% -] 1 drop OU BID 06/02/18 Hydralazine HCl 100 mg PO DAILY 06/02/18 Losartan Potassium 25 mg PO DAILY 06/02/18 Losartan Potassium 50 mg PO DAILY 06/03/18 Family Disease History - Family Disease History Other Family History: Has a son who is in the half-way. Review of Systems - Review of Systems Constitutional: reports: Fever, Lethargy, Loss of Appetite, Malaise Cardiovascular: reports: Edema Respiratory: reports: Cough, Hemoptysis Nephrology Consult - Height Height: 5 ft 1 in - Weight Weight: 117 lb - BMI Body Mass Index (BMI): 22.1 - Lab Results CBC,BMP: CBC, BMP 06/06/18 10:35 06/04/18 05:30 Anion Gap: Anion Gap Anion Gap 8 MMOL/L (8-16) 06/04/18 05:30 - Physical Examination Vital Signs: Vital Signs Temperature 99.0 F 06/06/18 17:00 Pulse Rate 76 06/06/18 17:00 Respiratory Rate 20 06/06/18 17:00 Blood Pressure 135/61 06/06/18 17:00 O2 Sat by Pulse Oximetry (%) 96 06/06/18 09:00 Constitutional: Yes: Well Nourished, No Distress Eyes: Yes: Other (pale conjunctiva) HENT: Yes: WNL Neck: Yes: Supple Cardiovascular: Yes: Regular Rate and Rhythm Respiratory: Yes: Diminished, Dullness (Coarse breath sound bilat.) Gastrointestinal: Yes: Normal Bowel Sounds, Soft, Abdomen, Obese Renal/: Yes: WNL Musculoskeletal: Yes: WNL Problem List - Problems (1) Renal cyst Assessment/Plan: This is followed from the office and does not require any immediate evaluation during the hospitalization unless otherwise indicated. Code(s): N28.1 - CYST OF KIDNEY, ACQUIRED (2) Anemia Assessment/Plan: Anemia workup as per Medical input Code(s): D64.9 - ANEMIA, UNSPECIFIED (3) Bilateral pulmonary infiltrates on chest x-ray Assessment/Plan: Continue with the present course of antibiotics including oxygen supplementation as needed. Code(s): R91.8 - OTHER NONSPECIFIC ABNORMAL FINDING OF LUNG FIELD
[2018-06-06] MEDS: ATORVASTATIN CA 20 MG TABLET (FP) PO SCH (21:34)
[2018-06-07 06:18] LABS: HEMATOCRIT 21.9 % (32.4-45.2); HEMOGLOBIN 7.1 GM/dL (10.7-15.3); MCH 30.9 pg (25.7-33.7); MCHC 32.7 g/dl (32.0-36.0); MEAN CELL VOLUME 94.7 fl (80-96); MEAN PLT VOLUME 8.3 fl (7.5-11.1); PLATELET COUNT 317 K/MM3 (134-434); RBC 2.31 M/mm3 (3.60-5.2); RDW 12.8 % (11.6-15.6); WHITE BLOOD COUNT 12.3 K/mm3 (4.0-10.0)
[2018-06-07] MEDS ORDERED: ACETAMINOPHEN 325 MG TABLET (FP) PO ONE (06:23)
[2018-06-07] MEDS ORDERED: ACETAMINOPHEN 325 MG TABLET (FP) ONE (06:28)
--- NOTE | 2018-06-07 09:17 | PN ---
Progress Note (short form) - Note Progress Note: c/o worsening dyspnea on exertion. states cough has improved with scant hemoptysis. dneies CP, fever, chlls, night sweats, N/V/C/D Current Medications Generic Name Dose Route Start Last Admin Trade Name Freq PRN Reason Stop Dose Admin Albuterol/Ipratropium 1 amp 06/02/18 20:23 06/04/18 07:54 Duoneb - NEB 1 amp Q4H PRN Administration SHORTNESS OF BREATH Amlodipine Besylate 10 mg 06/03/18 10:00 06/06/18 11:15 Norvasc - PO 10 mg DAILY ANITA Administration Apixaban 5 mg 06/02/18 22:00 06/06/18 21:34 Eliquis - PO 5 mg BID ANITA Administration Atorvastatin Calcium 20 mg 06/02/18 22:00 06/06/18 21:34 Lipitor - PO 20 mg HS ANITA Administration Brimonidine Tartrate 1 drop 06/02/18 22:00 06/06/18 21:34 Alphagan 0.15% - OU 1 drop BID ANITA Administration Ferrous Sulfate 325 mg 06/06/18 11:30 06/06/18 17:12 Feosol - PO 325 mg DAILY ANITA Administration Hydralazine HCl 100 mg 06/03/18 10:00 06/06/18 11:15 Apresoline - PO 100 mg DAILY ANITA Administration Ceftriaxone Sodium 1 gm/ 50 mls @ 100 mls/hr 06/03/18 10:00 06/06/18 11:14 Dextrose IVPB 100 mls/hr DAILY ANITA Administration Protocol Metronidazole 500 mg in 100 mls @ 100 mls/hr 06/07/18 10:00 Flagyl 500mg Premixed Ivpb - IVPB Q8H-IV ANITA Losartan Potassium 50 mg 06/06/18 10:00 06/06/18 11:15 Cozaar - PO 50 mg DAILY ANITA Administration Last Vital Signs Temp Pulse Resp BP Pulse Ox 99.1 F 76 20 120/40 L 96 06/07/18 05:57 06/07/18 08:16 06/07/18 08:16 06/07/18 08:16 06/06/18 21:00 General NAD CV S1 S2 RRR +murmur Lungs CTA B/L no wheezing/rales/rhonchi CBCD WBC 12.3 K/mm3 (4.0-10.0) H 06/07/18 05:30 RBC 2.31 M/mm3 (3.60-5.2) L 06/07/18 05:30 Hgb 7.1 GM/dL (10.7-15.3) L 06/07/18 05:30 Hct 21.9 % (32.4-45.2) L 06/07/18 05:30 MCV 94.7 fl (80-96) 06/07/18 05:30 MCHC 32.7 g/dl (32.0-36.0) 06/07/18 05:30 RDW 12.8 % (11.6-15.6) 06/07/18 05:30 Plt Count 317 K/MM3 (134-434) 06/07/18 05:30 MPV 8.3 fl (7.5-11.1) 06/07/18 05:30 CMP Sodium 139 mmol/L (136-145) 06/04/18 05:30 Potassium 4.6 mmol/L (3.5-5.1) 06/04/18 05:30 Chloride 103 mmol/L (98-107) 06/04/18 05:30 Carbon Dioxide 28 mmol/L (21-32) 06/04/18 05:30 Anion Gap 8 MMOL/L (8-16) 06/04/18 05:30 BUN 25 mg/dL (7-18) H 06/04/18 05:30 Creatinine 0.9 mg/dL (0.55-1.3) 06/04/18 05:30 Creat Clearance w eGFR > 60 (>60) 06/04/18 05:30 Calcium 9.1 mg/dL (8.5-10.1) 06/04/18 05:30 Total Bilirubin 0.9 mg/dL (0.2-1) 06/02/18 15:30 AST 27 U/L (15-37) 06/02/18 15:30 ALT 20 U/L (13-61) 06/02/18 15:30 Alkaline Phosphatase 94 U/L (45-117) 06/02/18 15:30 Total Protein 7.7 g/dl (6.4-8.2) 06/02/18 15:30 Albumin 3.2 g/dl (3.4-5.0) L 06/02/18 15:30 Microbiology 06/03/18 15:25 Blood Culture - Preliminary Blood - Peripheral Venous NO GROWTH OBTAINED AFTER 72 HOURS, INCUBATION TO CONTINUE FOR 2 DAYS. 06/03/18 15:25 Blood Culture - Preliminary Blood - Peripheral Venous NO GROWTH OBTAINED AFTER 72 HOURS, INCUBATION TO CONTINUE FOR 2 DAYS. 06/05/18 16:00 Direct Acid Fast Bacilli Smear - Final Sputum - Expectorated 06/04/18 07:56 AFB Smear Concentration - Final Sputum - Expectorated Direct Acid Fast Bacilli Smear - Final Mycobacterial Culture - Preliminary ASSESSMENT AND PLAN: 72yo F wtih PMH DM which is diet controlled, HTN, AFib on eliquis, asthma presented to the ER with hemoptysis and cough 1. Hemoptysis- possible irritation from frequent coughing however concern for TB. hemoptysis is improving. closely monitor Hgb while on eliquis. s 2. Acute hypoxic respiratory distress- slowly improving. currently 94% on RA. due to multilobar PNA but will need to r/o TB and malignancy. on ceftriaxone day 5 and started on Flagyl today. will repeat CXR today. AFB neg x3 however was recently on levaquin as outpatient. AFB neg x1. will d/w ID about d/c isolation. may need a bronch as remains very dyspnic. ID and pulmonary on board. airborne precautions. mycoplasma negative 3. Hyponatremia- resolved 4. hypokalemia- resolved 5. Anemia-+iron deficiency and acute blood loss anemia with anemia of chronic disease. unknown baseline. Hgb slwoly trending down however hemopytsis is improving. will repeat CBC later today. normal transfusion thresholds. on iron supplements. dropped today. will repeat as pt hemoptysis is less than before. normal txn thresholds. no indication for transfusion. on iron supplementation. 6. afib- rate controlled. cont current management. will cont eliquis. may need to hold if worsens or hgb trends down 7. DM- diet controlled.A1c 5.6 will d/c BGM 8. HTN- controlled. cont current management 9. DVT ppx- eliquis. Visit type - Emergency Visit Emergency Visit: Yes ED Registration Date: 06/02/18 Care time: The patient presented to the Emergency Department on the above date and was hospitalized for further evaluation of their emergent condition. - New Patient This patient is new to me today: No - Critical Care Critical Care patient: No - Discharge Referral Referred to [facility] No
[2018-06-07] MEDS ORDERED: PT OWN MED DRAWER 7, Y5N ONE (10:01)
[2018-06-07] MEDS: APIXABAN 5 MG TABLET PO SCH ×2 (10:05→21:29)
[2018-06-07] MEDS: amLODIPine BESYLATE 10 MG TABLET (FP) PO SCH (10:05)
[2018-06-07] MEDS: hydrALAZINE HCL 50 MG TABLET (FP) PO SCH (10:05)
[2018-06-07] MEDS: LOSARTAN POTASSIUM 50 MG TABLET (FP) PO SCH (10:06)
[2018-06-07] MEDS: FERROUS SO4 325 MG TABLET (FP) PO SCH (10:06)
[2018-06-07] MEDS ORDERED: DEXTROSE 5%-WATER - 50 ML IVPB ONE (10:12)
[2018-06-07] MEDS ORDERED: cefTRIAXone SODIUM 1 GM VIAL ONE (10:12)
[2018-06-07] MEDS: CEFTRIAXONE 1 GM in DEXTROSE 5%-WATER - 50 ML IVPB SCH (10:13)
--- NOTE | 2018-06-07 10:13 | PN ---
Progress Note, Physician History of Present Illness: pulmonary alert,less hemoptysis,+ sob last night,currently feeling better - Current Medication List Current Medications: Active Medications Albuterol/Ipratropium (Duoneb -) 1 amp NEB Q4H PRN PRN Reason: SHORTNESS OF BREATH Last Admin: 06/04/18 07:54 Dose: 1 amp Amlodipine Besylate (Norvasc -) 10 mg PO DAILY [facility] Last Admin: 06/06/18 11:15 Dose: 10 mg Apixaban (Eliquis -) 5 mg PO BID [facility] Last Admin: 06/06/18 21:34 Dose: 5 mg Atorvastatin Calcium (Lipitor -) 20 mg PO HS [facility] Last Admin: 06/06/18 21:34 Dose: 20 mg Brimonidine Tartrate (Alphagan 0.15% -) 1 drop OU BID [facility] Last Admin: 06/06/18 21:34 Dose: 1 drop Ferrous Sulfate (Feosol -) 325 mg PO DAILY [facility] Last Admin: 06/06/18 17:12 Dose: 325 mg Hydralazine HCl (Apresoline -) 100 mg PO DAILY [facility] Last Admin: 06/06/18 11:15 Dose: 100 mg Ceftriaxone Sodium 1 gm/ (Dextrose) 50 mls @ 100 mls/hr IVPB DAILY [facility]; Protocol Last Admin: 06/06/18 11:14 Dose: 100 mls/hr Metronidazole (Flagyl 500mg Premixed Ivpb -) 500 mg in 100 mls @ 100 mls/hr IVPB Q8H-IV ANITA Losartan Potassium (Cozaar -) 50 mg PO DAILY [facility] Last Admin: 06/06/18 11:15 Dose: 50 mg - Objective Vital Signs: Vital Signs Temperature 99.1 F 06/07/18 05:57 Pulse Rate 76 06/07/18 08:16 Respiratory Rate 20 06/07/18 08:16 Blood Pressure 120/40 L 06/07/18 08:16 O2 Sat by Pulse Oximetry (%) 96 06/06/18 21:00 Constitutional: Yes: Well Nourished, Calm Eyes: Yes: WNL HENT: Yes: WNL Neck: Yes: WNL Cardiovascular: Yes: Pulse Irregular, S1, S2 Respiratory: Yes: Diminished Gastrointestinal: Yes: Normal Bowel Sounds, Soft Extremities: Yes: WNL Edema: No Labs: CBC, BMP 06/07/18 05:30 06/04/18 05:30 INR, PTT INR 1.53 (0.83-1.09) H 06/03/18 06:45 Assessment/Plan Problem List - Problems (1) Hemoptysis Code(s): R04.2 - HEMOPTYSIS (2) Pneumonia Code(s): J18.9 - PNEUMONIA, UNSPECIFIED ORGANISM (3) Pulmonary HTN Code(s): I27.20 - PULMONARY HYPERTENSION, UNSPECIFIED (4) Asthma Code(s): J45.909 - UNSPECIFIED ASTHMA, UNCOMPLICATED Assessment/Plan Bilateral Pneumonia r/o TB Hemoptysis improving Pulmonary HTN Asthma Atrial Fibrillation HTN DM ANEMIA - antibiotics - ac - inhaled bronchodilators - monitor/quantify hemoptysis - available for bronchoscopy if sputum samples unrevealing - DVT prophylaxis - f/u chest x-ray today - normal transfusion threshold DR LANCE
[2018-06-07] MEDS: BRIMONIDINE TARTRATE 0.15% OPHTHALMIC 5 ML BOTTLE OU SCH ×2 (10:19→21:29)
--- NOTE | 2018-06-07 10:31 | PN ---
Progress Note (short form) - Note Progress Note: s: no cp palps dizzy. still has cough, sob is improving Current Medications Albuterol/Ipratropium (Duoneb -) 1 amp NEB Q4H PRN PRN Reason: SHORTNESS OF BREATH Last Admin: 06/04/18 07:54 Dose: 1 amp Amlodipine Besylate (Norvasc -) 10 mg PO DAILY [facility] Last Admin: 06/07/18 10:05 Dose: 10 mg Apixaban (Eliquis -) 5 mg PO BID [facility] Last Admin: 06/07/18 10:05 Dose: 5 mg Atorvastatin Calcium (Lipitor -) 20 mg PO HS [facility] Last Admin: 06/06/18 21:34 Dose: 20 mg Brimonidine Tartrate (Alphagan 0.15% -) 1 drop OU BID [facility] Last Admin: 06/07/18 10:19 Dose: 1 drop Ferrous Sulfate (Feosol -) 325 mg PO DAILY [facility] Last Admin: 06/07/18 10:06 Dose: 325 mg Hydralazine HCl (Apresoline -) 100 mg PO DAILY [facility] Last Admin: 06/07/18 10:05 Dose: 100 mg Ceftriaxone Sodium 1 gm/ (Dextrose) 50 mls @ 100 mls/hr IVPB DAILY [facility]; Protocol Last Admin: 06/07/18 10:13 Dose: 100 mls/hr Metronidazole (Flagyl 500mg Premixed Ivpb -) 500 mg in 100 mls @ 100 mls/hr IVPB Q8H-IV ANITA Last Admin: 06/07/18 10:13 Dose: 100 mls/hr Losartan Potassium (Cozaar -) 50 mg PO DAILY [facility] Last Admin: 06/07/18 10:06 Dose: 50 mg Vital Signs Period Temp Pulse Resp BP Sys/Red Pulse Ox Last 24 Hr 98 F-99.1 F 72-76 20-20 120-153/40-76 96 nad no jvd rrr s1s2 no mrg cta bl, nl eff aao3 trace le edema bl, no c/c abd nt nd pos bs no jaundice diaphoresis Stress Echo 08/02: 1:48 min (SOB). 75% MPHR. BP 140 rest, no change exercise. Non-ischemic stress test by EKG. +Atrial flutter with rapid conduction transiently seen during the recovery period, converting with evidence of brief sinus node arrest and junctional escape rhythm. Echo Findings: (1) No echocardiographic evidence of inducible ischemia--SUBMAX HR. (2) Moderate to severe (eccentric) TR seen. (3) Peak TR gradient is at least 52 mmHg. (4) Resting LV intracavitary gradient of 19 mmHg, rising to 86 mmHg on post- exercise images. (No systolic anterior motion of the mitral valve is seen at rest or post- exercise.) Cardiac CTA 03/03: no L to R shunt evidence. normal pulmonary veins. RV probably normal size. 4.1 cm ascending aorta. echo 05/2018: nl lv, mod dilated rv, mod dec rv fcn, sev denise, mild-mod mr, sev tr, rvsp 40-50, mod ar, mild pr cta lungs 05/2018: no pe, +pna ecg: sr, nl intervals, old IRBBB Echo 03/02 ([facility]): nl LV size and syst fxn; EF 83%. no LVH. slight mid-cavitary gradient (8). LVOT gradient 27 resting, up to 33 with valsalva. no mitral TEJA. dd1. hi LAP. nl LA size. mild-mod RVE, normal function. mild-mod DENISE. severe TR. PASP 67. neg bubble study. Echo 04/2016: 1. The left ventricular size is normal. 2. Overall left ventricular systolic function is normal with, an EF between 65 - 70 %. 3. No regional wall motion abnormalities were noted (apex not well seen). 4. The right ventricle is normal in size and function. 5. Left atrium is mildly dilated by volume. 6. The right atrium is markedly enlarged. 7. 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 8. There is mild aortic regurgitation. 9. The tricuspid valve appears structurally normal. 10. Moderate tricuspid regurgitation present; eccentric jet present, which hugs the interatrial septum--severity may be underestimated. 11. There is moderate pulmonary hypertension. 12. The right ventricular systolic pressure, as measured by Doppler, is 61 mmHg (assuming RA pressure of 3 mmHg). 13. [id number] pulmonic regurgitation. Echo 04/30: nl LV/EF; dd1; nl RV; nl LA; mild DENISE; mild AI; eccentric TR at least moderate; nl LAP; nl RAP; mild pHTN (49); prob mild dilated ascending aorta (3.7); IASA (no PFO) Echo 2013 (at PMD): moderate pulm HTN; 56mmHg Renal dopplers 11/30: L stones, no hydro; normal size kidneys; no RA stenosis V/Q 04/2016: low prob for PE; central airway clumping/abnl ventil c/w airways dx and/or parenchymal dz PFTs 06/01: mild obstructive defect; mild decr DLCO; mild BD response a/p: 72 f hx pulm htn, htn, hld, here with sob, cough. sob, cough: -ct shows pna, sxs improving with abx -pulm, ID following Anemia - stable - eliquis continued, monitoring h/h Paroxysmal atrial fibrillation: BRIEF ATRIAL FLUTTER DURING RECOVERY AFTER STRESS ECHO, RAPID HR (170S). THEN SPONTANEOUS PAROXYSM OF FLUTTER SEEN DURING EVENT MONITOR, HR MILDLY RAPID (114), WAS NOT ON AVN BLOCKERS AT THAT TIME. COULD NOT TOLERATE TOPROL 25, THEN LOPRESSOR 12.5 BID DUE TO JUNCTIONAL AND SINUS LISANDRO'S. DEFER AVN BLOCKERS, OBSERVE FOR RECURRENT PALPITATIONS (SHE NOTED SX'S AT TIME OF PAFL). MAY NEED ABLATION IF RECURRENCES FREQUENT OR PROLONGED IN FUTURE. CHADS VASC 4. CONT ELIQUIS DOING htn: -cont current meds hld: -cont statin Pulmonary hypertension, rv dysfunction, sev tr: -chronic condition for patient. she has declined RHC cath/eval by pulm htn specialist numerous times in past. says she will consider it, outpt f/u cardiac craven remains stable
[2018-06-07 14:00] LABS: HEMATOCRIT 22.2 % (32.4-45.2); HEMOGLOBIN 7.2 GM/dL (10.7-15.3); MCHC 32.7 g/dl (32.0-36.0); MEAN CELL VOLUME 94.9 fl (80-96); MEAN PLT VOLUME 8.1 fl (7.5-11.1); PLATELET COUNT 364 K/MM3 (134-434); RBC 2.34 M/mm3 (3.60-5.2); RDW 13.1 % (11.6-15.6); WHITE BLOOD COUNT 12.8 K/mm3 (4.0-10.0)
--- NOTE | 2018-06-07 14:14 | PN ---
Progress Note (short form) - Note Progress Note: about the same productive cough, less blood no new complaints 2 Vital Signs Period Temp Pulse Resp BP Sys/Red Pulse Ox Last 24 Hr 98.0 F-99.1 F 72-76 20-20 120-153/40-76 96 cor-rrr lungs decreasd bs at basea abd soft,nt ext trace edema CBC, BMP 06/07/18 13:35 06/04/18 05:30 06/05/18 16:00 Sputum - Expectorated Direct Acid Fast Bacilli Smear - Final 06/04/18 07:56 Sputum - Expectorated AFB Smear Concentration - Final 06/04/18 07:56 Sputum - Expectorated Direct Acid Fast Bacilli Smear - Final 06/04/18 07:56 Sputum - Expectorated Mycobacterial Culture - Preliminary 06/03/18 15:25 Blood - Peripheral Venous Blood Culture - Preliminary NO GROWTH OBTAINED AFTER 48 HOURS, INCUBATION TO CONTINUE FOR 3 DAYS. 06/03/18 15:25 Blood - Peripheral Venous Blood Culture - Preliminary NO GROWTH OBTAINED AFTER 48 HOURS, INCUBATION TO CONTINUE FOR 3 DAYS. 06/03/18 19:00 Sputum - Expectorated Gram Stain - Final 06/03/18 19:00 Sputum - Expectorated Sputum Culture - Final Yeast Like Organism 06/03/18 10:36 Sputum - Expectorated AFB Smear Concentration - Final 06/03/18 10:36 Sputum - Expectorated Direct Acid Fast Bacilli Smear - Final 06/03/18 10:36 Sputum - Expectorated Mycobacterial Culture - Preliminary 06/03/18 19:00 Sputum - Expectorated LONNIE Preparation - Preliminary 06/03/18 19:00 Sputum - Expectorated Fungal Culture - Preliminary 06/03/18 08:12 Urine For Antigen Detection Legionella Antigen - Final 06/03/18 08:12 Urine For Antigen Detection Streptococcus pneumoniae Antigen (M - Final sputum afb negative times 2 third pending quantiferon indeterminate cxray unchanged a/p bilateral upper lobe infiltrates right greater then left-pretreated with 10 days of levaquin R/O TB, fungal, actino? also malignancy is a possibility would send sputum cytology as well for bronch if sputum unrevealing f/u labs and cultures anemia- ?chronic disease murmur- echo-severe TR with pulmonary HTN switch to unasyn to add anaerobic coverage UA anca sputum cytology ordered keep in isolation for now ?bronch ? Problem List - Problems (1) Bilateral pulmonary infiltrates on chest x-ray Code(s): R91.8 - OTHER NONSPECIFIC ABNORMAL FINDING OF LUNG FIELD (2) Hemoptysis Code(s): R04.2 - HEMOPTYSIS (3) Anemia Code(s): D64.9 - ANEMIA, UNSPECIFIED
[2018-06-07] MEDS ORDERED: AMPICILLIN NA/SULBACTAM NA 1.5 GM VIAL ONE ×2 (14:41→20:44)
[2018-06-07] MEDS ORDERED: SODIUM CHLORIDE 100 ML IVPB ONE ×2 (14:41→20:45)
[2018-06-07] MEDS: AMPICILLIN NA/SULBACTAM NA 1.5 GM in SODIUM CHLORIDE 100 ML IVPB SCH ×2 (14:44→21:29)
[2018-06-07] MEDS: ATORVASTATIN CA 20 MG TABLET (FP) PO SCH (21:29)
[2018-06-08] MEDS ORDERED: AMPICILLIN NA/SULBACTAM NA 1.5 GM VIAL ONE ×4 (04:02→20:30)
[2018-06-08] MEDS ORDERED: SODIUM CHLORIDE 100 ML IVPB ONE ×4 (04:03→20:31)
[2018-06-08] MEDS: AMPICILLIN NA/SULBACTAM NA 1.5 GM in SODIUM CHLORIDE 100 ML IVPB SCH ×4 (04:09→20:57)
[2018-06-08] MEDS ORDERED: diphenhydrAMINE HCL 25 MG CAPSULE (FP) PO ONE (05:53)
[2018-06-08 06:11] LABS: HEMATOCRIT 22.9 % (32.4-45.2); HEMOGLOBIN 7.4 GM/dL (10.7-15.3); MCHC 32.4 g/dl (32.0-36.0); MEAN CELL VOLUME 95.6 fl (80-96); MEAN PLT VOLUME 8.3 fl (7.5-11.1); PLATELET COUNT 349 K/MM3 (134-434); RBC 2.39 M/mm3 (3.60-5.2); RDW 12.9 % (11.6-15.6); WHITE BLOOD COUNT 12.1 K/mm3 (4.0-10.0)
[2018-06-08] MEDS ORDERED: PT OWN MED DRAWER 7, Y5N ONE ×2 (09:11→15:01)
[2018-06-08] MEDS: APIXABAN 5 MG TABLET PO SCH ×2 (10:02→20:59)
[2018-06-08] MEDS: amLODIPine BESYLATE 10 MG TABLET (FP) PO SCH (10:02)
[2018-06-08] MEDS: FERROUS SO4 325 MG TABLET (FP) PO SCH (10:02)
[2018-06-08] MEDS: LOSARTAN POTASSIUM 50 MG TABLET (FP) PO SCH (10:02)
[2018-06-08] MEDS: hydrALAZINE HCL 50 MG TABLET (FP) PO SCH (10:02)
[2018-06-08] MEDS: BRIMONIDINE TARTRATE 0.15% OPHTHALMIC 5 ML BOTTLE OU SCH ×2 (10:02→21:00)
--- NOTE | 2018-06-08 10:27 | PN ---
Progress Note, Physician History of Present Illness: pulmonary alert,less dyspneic,+ cough,less heme. tmax 100.7 - Current Medication List Current Medications: Active Medications Amlodipine Besylate (Norvasc -) 10 mg PO DAILY [facility] Last Admin: 06/08/18 10:02 Dose: 10 mg Apixaban (Eliquis -) 5 mg PO BID [facility] Last Admin: 06/08/18 10:02 Dose: 5 mg Atorvastatin Calcium (Lipitor -) 20 mg PO HS [facility] Last Admin: 06/07/18 21:29 Dose: 20 mg Brimonidine Tartrate (Alphagan 0.15% -) 1 drop OU BID [facility] Last Admin: 06/08/18 10:02 Dose: 1 drop Ferrous Sulfate (Feosol -) 325 mg PO DAILY [facility] Last Admin: 06/08/18 10:02 Dose: 325 mg Hydralazine HCl (Apresoline -) 100 mg PO DAILY [facility] Last Admin: 06/08/18 10:02 Dose: 100 mg Ampicillin Sodium/Sulbactam (Sodium 1.5 gm/ Sodium Chloride) 100 mls @ 200 mls/ hr IVPB Q6H-IV [facility] Last Admin: 06/08/18 10:01 Dose: 200 mls/hr Losartan Potassium (Cozaar -) 50 mg PO DAILY [facility] Last Admin: 06/08/18 10:02 Dose: 50 mg - Objective Vital Signs: Vital Signs Temperature 99.4 F 06/08/18 10:07 Pulse Rate 83 06/08/18 10:07 Respiratory Rate 16 06/08/18 10:07 Blood Pressure 117/54 L 06/08/18 10:07 O2 Sat by Pulse Oximetry (%) 95 06/07/18 20:14 Constitutional: Yes: Well Nourished, Calm Eyes: Yes: WNL HENT: Yes: WNL Neck: Yes: WNL Cardiovascular: Yes: Pulse Irregular, S1, S2 Respiratory: Yes: Diminished Gastrointestinal: Yes: Normal Bowel Sounds, Soft Extremities: Yes: WNL Edema: No Labs: CBC, BMP 06/08/18 05:03 Assessment/Plan Problem List - Problems (1) Hemoptysis Code(s): R04.2 - HEMOPTYSIS (2) Pneumonia Code(s): J18.9 - PNEUMONIA, UNSPECIFIED ORGANISM (3) Pulmonary HTN Code(s): I27.20 - PULMONARY HYPERTENSION, UNSPECIFIED (4) Asthma Code(s): J45.909 - UNSPECIFIED ASTHMA, UNCOMPLICATED Assessment/Plan Bilateral Pneumonia r/o TB Hemoptysis improving Pulmonary HTN Asthma Atrial Fibrillation HTN DM ANEMIA - antibiotics - ac - inhaled bronchodilators - monitor/quantify hemoptysis - bronchoscopy if sputum samples unrevealing - DVT prophylaxis - f/u chest x-ray today pa+ lateral - normal transfusion threshold DR LANCE
--- NOTE | 2018-06-08 10:29 | PN ---
Progress Note (short form) - Note Progress Note: s: no cp palps dizzy. complains of cough, sob better Current Medications Amlodipine Besylate (Norvasc -) 10 mg PO DAILY [facility] Last Admin: 06/08/18 10:02 Dose: 10 mg Apixaban (Eliquis -) 5 mg PO BID [facility] Last Admin: 06/08/18 10:02 Dose: 5 mg Atorvastatin Calcium (Lipitor -) 20 mg PO HS [facility] Last Admin: 06/07/18 21:29 Dose: 20 mg Brimonidine Tartrate (Alphagan 0.15% -) 1 drop OU BID [facility] Last Admin: 06/08/18 10:02 Dose: 1 drop Ferrous Sulfate (Feosol -) 325 mg PO DAILY [facility] Last Admin: 06/08/18 10:02 Dose: 325 mg Hydralazine HCl (Apresoline -) 100 mg PO DAILY [facility] Last Admin: 06/08/18 10:02 Dose: 100 mg Ampicillin Sodium/Sulbactam (Sodium 1.5 gm/ Sodium Chloride) 100 mls @ 200 mls/ hr IVPB Q6H-IV [facility] Last Admin: 06/08/18 10:01 Dose: 200 mls/hr Losartan Potassium (Cozaar -) 50 mg PO DAILY [facility] Last Admin: 06/08/18 10:02 Dose: 50 mg Vital Signs Period Temp Pulse Resp BP Sys/Red Pulse Ox Last 24 Hr 98.3 F-100.7 F 66-92 16-20 117-156/42-76 95 nad no jvd rrr s1s2 no mrg cta bl, nl eff aao3 trace le edema bl, no c/c abd nt nd pos bs no jaundice diaphoresis Stress Echo 08/02: 1:48 min (SOB). 75% MPHR. BP 140 rest, no change exercise. Non-ischemic stress test by EKG. +Atrial flutter with rapid conduction transiently seen during the recovery period, converting with evidence of brief sinus node arrest and junctional escape rhythm. Echo Findings: (1) No echocardiographic evidence of inducible ischemia--SUBMAX HR. (2) Moderate to severe (eccentric) TR seen. (3) Peak TR gradient is at least 52 mmHg. (4) Resting LV intracavitary gradient of 19 mmHg, rising to 86 mmHg on post- exercise images. (No systolic anterior motion of the mitral valve is seen at rest or post- exercise.) Cardiac CTA 03/03: no L to R shunt evidence. normal pulmonary veins. RV probably normal size. 4.1 cm ascending aorta. echo 05/2018: nl lv, mod dilated rv, mod dec rv fcn, sev denise, mild-mod mr, sev tr, rvsp 40-50, mod ar, mild pr cta lungs 05/2018: no pe, +pna ecg: sr, nl intervals, old IRBBB Echo 03/02 ([facility]): nl LV size and syst fxn; EF 83%. no LVH. slight mid-cavitary gradient (8). LVOT gradient 27 resting, up to 33 with valsalva. no mitral TEJA. dd1. hi LAP. nl LA size. mild-mod RVE, normal function. mild-mod DENISE. severe TR. PASP 67. neg bubble study. Echo 04/2016: 1. The left ventricular size is normal. 2. Overall left ventricular systolic function is normal with, an EF between 65 - 70 %. 3. No regional wall motion abnormalities were noted (apex not well seen). 4. The right ventricle is normal in size and function. 5. Left atrium is mildly dilated by volume. 6. The right atrium is markedly enlarged. 7. 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 8. There is mild aortic regurgitation. 9. The tricuspid valve appears structurally normal. 10. Moderate tricuspid regurgitation present; eccentric jet present, which hugs the interatrial septum--severity may be underestimated. 11. There is moderate pulmonary hypertension. 12. The right ventricular systolic pressure, as measured by Doppler, is 61 mmHg (assuming RA pressure of 3 mmHg). 13. Fayq-sm-trcljngj pulmonic regurgitation. Echo 04/30: nl LV/EF; dd1; nl RV; nl LA; mild DENISE; mild AI; eccentric TR at least moderate; nl LAP; nl RAP; mild pHTN (49); prob mild dilated ascending aorta (3.7); IASA (no PFO) Echo 2013 (at PMD): moderate pulm HTN; 56mmHg Renal dopplers 11/30: L stones, no hydro; normal size kidneys; no RA stenosis V/Q 04/2016: low prob for PE; central airway clumping/abnl ventil c/w airways dx and/or parenchymal dz PFTs 06/01: mild obstructive defect; mild decr DLCO; mild BD response a/p: 72 f hx pulm htn, htn, hld, here with sob, cough. sob, cough: -ct shows pna, sxs improving with abx -pulm, ID following Anemia - stable - eliquis continued, monitoring h/h Paroxysmal atrial fibrillation: BRIEF ATRIAL FLUTTER DURING RECOVERY AFTER STRESS ECHO, RAPID HR (170S). THEN SPONTANEOUS PAROXYSM OF FLUTTER SEEN DURING EVENT MONITOR, HR MILDLY RAPID (114), WAS NOT ON AVN BLOCKERS AT THAT TIME. COULD NOT TOLERATE TOPROL 25, THEN LOPRESSOR 12.5 BID DUE TO JUNCTIONAL AND SINUS LISANDRO'S. DEFER AVN BLOCKERS, OBSERVE FOR RECURRENT PALPITATIONS (SHE NOTED SX'S AT TIME OF PAFL). MAY NEED ABLATION IF RECURRENCES FREQUENT OR PROLONGED IN FUTURE. CHADS VASC 4. CONT ELIQUIS DOING htn: -cont current meds hld: -cont statin Pulmonary hypertension, rv dysfunction, sev tr: -chronic condition for patient. she has declined RHC cath/eval by pulm htn specialist numerous times in past. says she will consider it, outpt f/u cardiac craven remains stable
--- NOTE | 2018-06-08 10:37 | PN ---
Teaching Attending Note Name of Resident: Elsy Johnston ATTENDING PHYSICIAN STATEMENT I saw and evaluated the patient. I reviewed the resident's note and discussed the case with the resident. I agree with the resident's findings and plan as documented. SUBJECTIVE:states breathing has improved but continues to have scant hemoptysis. denies CP, fever, chills, night sweats, N/v/C/D OBJECTIVE: Last Vital Signs Temp Pulse Resp BP Pulse Ox 99.4 F 83 16 117/54 L 95 06/08/18 10:07 06/08/18 10:07 06/08/18 10:07 06/08/18 10:07 06/07/18 20:14 General NAD Lungs CTA B/L no wheezing/rales/rhonchi ASSESSMENT AND PLAN: 72yo F wtih PMH DM which is diet controlled, HTN, AFib on eliquis, asthma presented to the ER with hemoptysis and cough 1. Hemoptysis- possible irritation from frequent coughing however concern for TB. hemoptysis is improving. closely monitor Hgb while on eliquis. 2. Acute hypoxic respiratory distress- low grade fever. slowly improving. CXR shows about the same. possible not infectious etiology but vasculitis. hold steroids at this time. ANCA workup sent. possible bronch as all Cx reports are negative. will d/w pulm team in the morning. abx switched to Unasyn. ID and pulmonary on board. 3. Hyponatremia- resolved 4. hypokalemia- resolved 5. Anemia-+iron deficiency and acute blood loss anemia with anemia of chronic disease. unknown baseline. Hgb stable. will give dose of venofer. cont po iron. monitor Hgb. normal transfusion thresholds. 6. afib- rate controlled. cont current management. will cont eliquis. may need to hold if worsens or hgb trends down 7. DM- diet controlled.A1c 5.6 cont diet control 8. HTN- controlled. cont current management 9. DVT ppx- eliquis.
[2018-06-08] MEDS ORDERED: IRON SUCROSE INJECTION 200 MG in SODIUM CHLORIDE 90 ML IVPB ONE (12:46)
[2018-06-08 14:59] LABS: URINE APPEARANCE CLEAR; URINE BILIRUBIN NEGATIVE (<2.0 mg/dL); URINE COLOR YELLOW; URINE GLUCOSE (UA) NEGATIVE (NEGATIVE); URINE KETONE NEGATIVE (NEGATIVE); URINE LEUK ESTERASE TRACE (NEGATIVE); URINE NITRITE NEGATIVE (NEGATIVE); URINE UROBILINOGEN NEGATIVE mg/dL (0.2-1.0)
[2018-06-08] MEDS: guaiFENesin/D-M SUGAR-FREE/ACLHOL-FREE 118 ML BOTTLE PO PRN (15:04)
[2018-06-08 15:14] LABS: URINE PROTEIN 1+ (NEGATIVE)
--- NOTE | 2018-06-08 19:01 | PN ---
Physical Exam: SUBJECTIVE: Patient seen and examined at bedside this morning. She still has hemoptysis. Patient has been c/o cough that makes it hard for her to sleep. OBJECTIVE: Vital Signs Period Temp Pulse Resp BP Sys/Red Pulse Ox Last 24 Hr 98.9 F-100.7 F 72-90 16-20 116-156/50-70 95-95 GENERAL: The patient is awake, alert, and fully oriented, on 2L NC HEAD: Normal with no signs of trauma. EYES: PERRLA, EOMI, sclera anicteric, conjunctiva clear. ENT: Ears normal, nares patent, oropharynx clear without exudates, moist mucous membranes. NECK: Trachea midline, full range of motion, supple. LUNGS: +Rhonchi b/l, no wheezes HEART: Regular rate and rhythm, + systolic murmur ABDOMEN: Soft, nontender, nondistended, normoactive bowel sounds. EXTREMITIES: 2+ pulses, warm, well-perfused, no edema. NEUROLOGICAL: Cranial nerves II through XII grossly intact. Normal speech, normal gait. PSYCH: Normal mood, normal affect. SKIN: Warm, dry, normal turgor, no rashes or lesions noted Laboratory Results - last 24 hr 06/08/18 06/08/18 05:03 14:40 WBC 12.1 H RBC 2.39 L Hgb 7.4 L Hct 22.9 L MCV 95.6 MCH 31.0 MCHC 32.4 RDW 12.9 Plt Count 349 MPV 8.3 Urine Color Yellow Urine Appearance Clear Urine pH 6.0 Ur Specific Dearing 1.015 Urine Protein 1+ H Urine Glucose (UA) Negative Urine Ketones Negative Urine Blood 2+ H Urine Nitrite Negative Urine Bilirubin Negative Urine Urobilinogen Negative Ur Leukocyte Esterase Trace Urine WBC (Auto) 10 Urine RBC (Auto) 27 Active Medications Generic Name Dose Route Start Last Admin Trade Name Freq PRN Reason Stop Dose Admin Amlodipine Besylate 10 mg 06/03/18 10:00 06/08/18 10:02 Norvasc - PO 10 mg DAILY [facility] Administration Apixaban 5 mg 06/02/18 22:00 06/08/18 10:02 Eliquis - PO 5 mg BID [facility] Administration Atorvastatin Calcium 20 mg 06/02/18 22:00 06/07/18 21:29 Lipitor - PO 20 mg HS [facility] Administration Brimonidine Tartrate 1 drop 06/02/18 22:00 06/08/18 10:02 Alphagan 0.15% - OU 1 drop BID [facility] Administration Ferrous Sulfate 325 mg 06/06/18 11:30 06/08/18 10:02 Feosol - PO 325 mg DAILY [facility] Administration Guaifenesin 5 ml 06/08/18 12:49 06/08/18 15:04 Diabetic Tussin Dm - PO 5 ml Q6H PRN Administration COUGH Hydralazine HCl 100 mg 06/03/18 10:00 06/08/18 10:02 Apresoline - PO 100 mg DAILY [facility] Administration Ampicillin Sodium/Sulbactam 100 mls @ 200 mls/hr 06/07/18 15:00 06/08/18 14: 49 Sodium 1.5 gm/ Sodium Chloride IVPB 200 mls/hr Q6H-IV [facility] Administration Losartan Potassium 50 mg 06/06/18 10:00 06/08/18 10:02 Cozaar - PO 50 mg DAILY [facility] Administration ASSESSMENT/PLAN: Imaging Chest/Thorax CTA No evidence of pulmonary artery emboli. Bilateral patchy infiltrates with consolidates within the right upper lobe which appear unchanged form prior imaging. Chest CT without contrast In comparison to prior studies note is made of interval development of extensive bilateral upper lobe alveolar infiltrates, right more than left. Smaller bilateral lower lobe infiltrates are also seen. Cardiomegaly. Probably dilatation of the main pulmonary artery suggestive of increased pulmonary arterial pressure. Chest X-ray Extremely abnormal CXR with new pulmonary findings and persistently enlarged heart. Echo Clinical correlation is recommended. Right ventricular systolic pressure is elevated at 40-50 mmHg. There is severe tricuspid regurgitation. The right ventricle is moderately dilated. The right ventricular systolic function is moderately reduced. The right atrium is severely dilated. E/A reversal consistent with but not diagnostic of poor LV compliance. The left ventricular wall motion is normal. The left ventricular EF is normal. The left ventricular size, thickness, and function are normal. Microbiology 06/03/18 15:25 Blood - Peripheral Venous Blood Culture - Preliminary NO GROWTH OBTAINED AFTER 48 HOURS, INCUBATION TO CONTINUE FOR 3 DAYS. 06/03/18 15:25 Blood - Peripheral Venous Blood Culture - Preliminary NO GROWTH OBTAINED AFTER 48 HOURS, INCUBATION TO CONTINUE FOR 3 DAYS. 06/03/18 19:00 Sputum - Expectorated Gram Stain - Final 06/03/18 19:00 Sputum - Expectorated Sputum Culture - Final Yeast Like Organism 06/03/18 10:36 Sputum - Expectorated AFB Smear Concentration - Final 06/03/18 10:36 Sputum - Expectorated Direct Acid Fast Bacilli Smear - Final 06/03/18 10:36 Sputum - Expectorated Mycobacterial Culture - Preliminary 06/04/18 07:56 Sputum - Expectorated AFB Smear Concentration - Preliminary 06/04/18 07:56 Sputum - Expectorated Direct Acid Fast Bacilli Smear - Final 06/04/18 07:56 Sputum - Expectorated Mycobacterial Culture - Preliminary 06/03/18 19:00 Sputum - Expectorated LONNIE Preparation - Preliminary 06/03/18 19:00 Sputum - Expectorated Fungal Culture - Preliminary 06/03/18 08:12 Urine For Antigen Detection Legionella Antigen - Final 06/03/18 08:12 Urine For Antigen Detection Streptococcus pneumoniae Antigen M - Final ASSESSMENT/PLAN: Patient is a 72 year old female who presented with worsening dyspnea on exertion and hemoptysis for about 3 weeks. #Hemoptysis and PANIAGUA: likely 2/2 CAP, rule out TB -WBC is trending down to 12.1. Will continue to trend WBC. -AFB smear negative, AFB Sputum cultures negative x2. Pending 3rd AFB culture. -Quantiferon TB test: Indeterminate. -ALEXIA, c-ANCA, PR3, p-ANCA, MPO Ab ordered. -Pulmonary (Dr. Almeida) consulted. Recommendations appreciated: -CXR - bilateral upper lobe pneumonia. -Hold Azithromycin until TB is ruled out. Pending 3rd AFB culture. -Airborne isolation. -Duoneb PRN -Monitor/quantify hemoptysis. -For bronchoscopy tomorrow. -NPO after midnight. -ID (Dr. Mckeon) consulted. Recommendations appreciated. -Fungal culture - negative -ESR 92 / CRP 2.9 -Switched Ceftriaxone to Unasyn (Day 2). -Robitussin PRN for cough. #Pulmonary Hypertension -Echo -RV systolic pressure elevated at 40-50 mmHg. Severe TR. RV is moderately dilated. RV systolic function is moderately reduced. RA is severe dilated. -Cardiology (Dr. Gutierres) consulted. Recommendations appreciated: -Chronic condition for patient. She has declined right heart cath/eval by pulmonary HTN specialist numerous times in the past. -Says she will consider it as outpatient follow-up. #Normocytic Anemia -Possibly secondary to possibly lung pathology and inflammation. -Hgb today 7.4 -Iron 33, TIBC 218, Iron saturation 15, Ferritin 68.4 -Stool Guaiac - negative -Retic ct - 2.56 -Ferrous sulfate started. -IV Venofer 200mg given. -Continue Eliquis unless hgb/hct drops significantly -Will monitor H/H #Hyponatremia: resolved -Likely SIADH from lung pathology and possible hyperglycemia #Hypokalemia: resolved #NIDDMII -Patient was previously on Januvia and Metformin. -Reports that her primary care discontinued all her medications and is currently just on diet and exercise. -A1C - 5.6 -BGM and ISS ACHS #HTN -Continue home medication with Hydralazine 100mg daily, Amlodipine 10mg daily, and Increase Losartan to 50mg BID -Continue to monitor BP #HLD -Continue Lipitor 20mg HS -Lipid panel ordered #Atrial Fibrillation -Rate controlled -Continue Eliquis 5mg BID. If hgb drops or patient has worsening hemoptysis. Will discontinue. #F/E/N -Not on any standing fluids. -Encourage increased oral fluid intake. -Electrolytes wnl. -Sodium restricted/Diabetic diet. #Prophylaxis -Patient on Eliquis #Disposition -Full code -Airborne isolation Visit type - Emergency Visit Emergency Visit: Yes ED Registration Date: 06/02/18 Care time: The patient presented to the Emergency Department on the above date and was hospitalized for further evaluation of their emergent condition. - New Patient This patient is new to me today: Yes Date on this admission: 06/08/18 - Critical Care Critical Care patient: No
[2018-06-08] MEDS: ATORVASTATIN CA 20 MG TABLET (FP) PO SCH (20:59)
[2018-06-09] MEDS ORDERED: AMPICILLIN NA/SULBACTAM NA 1.5 GM VIAL ONE ×4 (01:25→21:09)
[2018-06-09] MEDS ORDERED: SODIUM CHLORIDE 100 ML IVPB ONE ×4 (01:25→21:10)
[2018-06-09] MEDS: AMPICILLIN NA/SULBACTAM NA 1.5 GM in SODIUM CHLORIDE 100 ML IVPB SCH ×4 (02:21→21:44)
[2018-06-09] MEDS: guaiFENesin/D-M SUGAR-FREE/ACLHOL-FREE 118 ML BOTTLE PO PRN (02:35)
[2018-06-09 06:49] LABS: HEMOGLOBIN 7.3 GM/dL (10.7-15.3); MCH 31.8 pg (25.7-33.7); MCHC 33.4 g/dl (32.0-36.0); MEAN CELL VOLUME 95.2 fl (80-96); MEAN PLT VOLUME 8.4 fl (7.5-11.1); PLATELET COUNT 355 K/MM3 (134-434); RBC 2.31 M/mm3 (3.60-5.2); RDW 13.3 % (11.6-15.6); WHITE BLOOD COUNT 10.7 K/mm3 (4.0-10.0)
[2018-06-09] MEDS: FERROUS SO4 325 MG TABLET (FP) PO SCH (10:00)
[2018-06-09] MEDS: APIXABAN 5 MG TABLET PO SCH ×2 (10:01→21:43)
[2018-06-09] MEDS: hydrALAZINE HCL 50 MG TABLET (FP) PO SCH (10:01)
[2018-06-09] MEDS: amLODIPine BESYLATE 10 MG TABLET (FP) PO SCH (10:01)
[2018-06-09] MEDS: LOSARTAN POTASSIUM 50 MG TABLET (FP) PO SCH (10:01)
[2018-06-09] MEDS ORDERED: ONDANSETRON 4 MG/2 ML VIAL IVPB PRN (10:08)
[2018-06-09] MEDS: BRIMONIDINE TARTRATE 0.15% OPHTHALMIC 5 ML BOTTLE OU SCH ×2 (10:12→21:44)
--- NOTE | 2018-06-09 10:54 | PN ---
Progress Note (short form) - Note Progress Note: s: no cp palps dizzy. complains of cough, sob better Current Medications Amlodipine Besylate (Norvasc -) 10 mg PO DAILY [facility] Last Admin: 06/09/18 10:01 Dose: 10 mg Apixaban (Eliquis -) 5 mg PO BID [facility] Last Admin: 06/09/18 10:01 Dose: 5 mg Atorvastatin Calcium (Lipitor -) 20 mg PO HS [facility] Last Admin: 06/08/18 20:59 Dose: 20 mg Brimonidine Tartrate (Alphagan 0.15% -) 1 drop OU BID [facility] Last Admin: 06/09/18 10:12 Dose: 1 drop Ferrous Sulfate (Feosol -) 325 mg PO DAILY [facility] Last Admin: 06/09/18 10:00 Dose: 325 mg Guaifenesin (Diabetic Tussin Dm -) 5 ml PO Q6H PRN PRN Reason: COUGH Last Admin: 06/09/18 02:35 Dose: 5 ml Hydralazine HCl (Apresoline -) 100 mg PO DAILY [facility] Last Admin: 06/09/18 10:01 Dose: 100 mg Ampicillin Sodium/Sulbactam (Sodium 1.5 gm/ Sodium Chloride) 100 mls @ 200 mls/ hr IVPB Q6H-IV [facility] Last Admin: 06/09/18 10:00 Dose: 200 mls/hr Losartan Potassium (Cozaar -) 50 mg PO DAILY [facility] Last Admin: 06/09/18 10:01 Dose: 50 mg Ondansetron HCl (Zofran Injection) 8 mg IVPB Q8H PRN PRN Reason: NAUSEA AND/OR VOMITING Last Admin: 06/09/18 10:40 Dose: 8 mg Vital Signs Period Temp Pulse Resp BP Sys/Red Pulse Ox Last 24 Hr 98.3 F-99.2 F 63-80 18-20 116-124/36-63 95 nad no jvd rrr s1s2 no mrg cta bl, nl eff aao3 trace le edema bl, no c/c abd nt nd pos bs no jaundice diaphoresis Stress Echo 08/02: 1:48 min (SOB). 75% MPHR. BP 140 rest, no change exercise. Non-ischemic stress test by EKG. +Atrial flutter with rapid conduction transiently seen during the recovery period, converting with evidence of brief sinus node arrest and junctional escape rhythm. Echo Findings: (1) No echocardiographic evidence of inducible ischemia--SUBMAX HR. (2) Moderate to severe (eccentric) TR seen. (3) Peak TR gradient is at least 52 mmHg. (4) Resting LV intracavitary gradient of 19 mmHg, rising to 86 mmHg on post- exercise images. (No systolic anterior motion of the mitral valve is seen at rest or post- exercise.) Cardiac CTA 03/03: no L to R shunt evidence. normal pulmonary veins. RV probably normal size. 4.1 cm ascending aorta. echo 05/2018: nl lv, mod dilated rv, mod dec rv fcn, sev denise, mild-mod mr, sev tr, rvsp 40-50, mod ar, mild pr cta lungs 05/2018: no pe, +pna ecg: sr, nl intervals, old IRBBB Echo 03/02 ([facility]): nl LV size and syst fxn; EF 83%. no LVH. slight mid-cavitary gradient (8). LVOT gradient 27 resting, up to 33 with valsalva. no mitral TEJA. dd1. hi LAP. nl LA size. mild-mod RVE, normal function. mild-mod DENISE. severe TR. PASP 67. neg bubble study. Echo 04/2016: 1. The left ventricular size is normal. 2. Overall left ventricular systolic function is normal with, an EF between 65 - 70 %. 3. No regional wall motion abnormalities were noted (apex not well seen). 4. The right ventricle is normal in size and function. 5. Left atrium is mildly dilated by volume. 6. The right atrium is markedly enlarged. 7. 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 8. There is mild aortic regurgitation. 9. The tricuspid valve appears structurally normal. 10. Moderate tricuspid regurgitation present; eccentric jet present, which hugs the interatrial septum--severity may be underestimated. 11. There is moderate pulmonary hypertension. 12. The right ventricular systolic pressure, as measured by Doppler, is 61 mmHg (assuming RA pressure of 3 mmHg). 13. Eewe-dx-timtopnf pulmonic regurgitation. Echo 04/30: nl LV/EF; dd1; nl RV; nl LA; mild DENISE; mild AI; eccentric TR at least moderate; nl LAP; nl RAP; mild pHTN (49); prob mild dilated ascending aorta (3.7); IASA (no PFO) Echo 2013 (at PMD): moderate pulm HTN; 56mmHg Renal dopplers 11/30: L stones, no hydro; normal size kidneys; no RA stenosis V/Q 04/2016: low prob for PE; central airway clumping/abnl ventil c/w airways dx and/or parenchymal dz PFTs 06/01: mild obstructive defect; mild decr DLCO; mild BD response a/p: 72 f hx pulm htn, htn, hld, here with sob, cough. sob, cough: -PNA - improving, on abx -pulm, ID following Anemia - stable - eliquis continued, monitoring h/h Paroxysmal atrial fibrillation: BRIEF ATRIAL FLUTTER DURING RECOVERY AFTER STRESS ECHO, RAPID HR (170S). THEN SPONTANEOUS PAROXYSM OF FLUTTER SEEN DURING EVENT MONITOR, HR MILDLY RAPID (114), WAS NOT ON AVN BLOCKERS AT THAT TIME. COULD NOT TOLERATE TOPROL 25, THEN LOPRESSOR 12.5 BID DUE TO JUNCTIONAL AND SINUS LISANDRO'S. DEFER AVN BLOCKERS, OBSERVE FOR RECURRENT PALPITATIONS (SHE NOTED SX'S AT TIME OF PAFL). MAY NEED ABLATION IF RECURRENCES FREQUENT OR PROLONGED IN FUTURE. CHADS VASC 4. CONT ELIQUIS DOING htn: -cont current meds hld: -cont statin Pulmonary hypertension, rv dysfunction, sev tr: -chronic condition for patient. she has declined RHC cath/eval by pulm htn specialist numerous times in past. says she will consider it, outpt f/u cardiac craven remains stable
--- NOTE | 2018-06-09 10:56 | PN ---
Progress Note, Physician History of Present Illness: pulmonary alert,feeling better,less hemoptysis,-sob,less cough - Current Medication List Current Medications: Active Medications Amlodipine Besylate (Norvasc -) 10 mg PO DAILY [facility] Last Admin: 06/09/18 10:01 Dose: 10 mg Apixaban (Eliquis -) 5 mg PO BID [facility] Last Admin: 06/09/18 10:01 Dose: 5 mg Atorvastatin Calcium (Lipitor -) 20 mg PO HS [facility] Last Admin: 06/08/18 20:59 Dose: 20 mg Brimonidine Tartrate (Alphagan 0.15% -) 1 drop OU BID [facility] Last Admin: 06/09/18 10:12 Dose: 1 drop Ferrous Sulfate (Feosol -) 325 mg PO DAILY [facility] Last Admin: 06/09/18 10:00 Dose: 325 mg Guaifenesin (Diabetic Tussin Dm -) 5 ml PO Q6H PRN PRN Reason: COUGH Last Admin: 06/09/18 02:35 Dose: 5 ml Hydralazine HCl (Apresoline -) 100 mg PO DAILY [facility] Last Admin: 06/09/18 10:01 Dose: 100 mg Ampicillin Sodium/Sulbactam (Sodium 1.5 gm/ Sodium Chloride) 100 mls @ 200 mls/ hr IVPB Q6H-IV [facility] Last Admin: 06/09/18 10:00 Dose: 200 mls/hr Losartan Potassium (Cozaar -) 50 mg PO DAILY [facility] Last Admin: 06/09/18 10:01 Dose: 50 mg Ondansetron HCl (Zofran Injection) 8 mg IVPB Q8H PRN PRN Reason: NAUSEA AND/OR VOMITING Last Admin: 06/09/18 10:40 Dose: 8 mg - Objective Vital Signs: Vital Signs Temperature 99.2 F 06/08/18 22:00 Pulse Rate 80 06/09/18 05:58 Respiratory Rate 20 06/09/18 05:58 Blood Pressure 124/36 L 06/09/18 05:58 O2 Sat by Pulse Oximetry (%) 95 06/08/18 21:00 Constitutional: Yes: Well Nourished, Calm Eyes: Yes: WNL HENT: Yes: WNL Neck: Yes: WNL Cardiovascular: Yes: Regular Rate and Rhythm, Pulse Irregular, S1, S2 Respiratory: Yes: Rales (few scattered crackles) Gastrointestinal: Yes: Normal Bowel Sounds, Soft Extremities: Yes: WNL Edema: No Labs: CBC, BMP 06/09/18 05:30 06/04/18 05:30 INR, PTT INR 1.53 (0.83-1.09) H 06/03/18 06:45 - ....Imaging Chest X-ray: Report Reviewed, Image Reviewed Assessment/Plan Problem List - Problems (1) Hemoptysis Code(s): R04.2 - HEMOPTYSIS (2) Pneumonia Code(s): J18.9 - PNEUMONIA, UNSPECIFIED ORGANISM (3) Pulmonary HTN Code(s): I27.20 - PULMONARY HYPERTENSION, UNSPECIFIED (4) Asthma Code(s): J45.909 - UNSPECIFIED ASTHMA, UNCOMPLICATED Assessment/Plan Bilateral Pneumonia improving r/o TB Hemoptysis improving Pulmonary HTN Asthma Atrial Fibrillation HTN DM ANEMIA - antibiotics as per ID - ac - inhaled bronchodilators - monitor/quantify hemoptysis - DVT prophylaxis - normal transfusion threshold - f/u chest x-rays -defer flex bronchoscopy patient clinically and radiographically improving. DR LANCE
--- NOTE | 2018-06-09 11:47 | PN ---
Teaching Attending Note Name of Resident: Elsy Johnston ATTENDING PHYSICIAN STATEMENT I saw and evaluated the patient. I reviewed the resident's note and discussed the case with the resident. I agree with the resident's findings and plan as documented. SUBJECTIVE:occasionally dyspnic on exertion. continues to have hemoptysis but more scant at this time. denies Cp, SOB< fever, chills, N/V/C/D OBJECTIVE: Last Vital Signs Temp Pulse Resp BP Pulse Ox 99.2 F 80 20 124/36 L 95 06/08/18 22:00 06/09/18 05:58 06/09/18 05:58 06/09/18 05:58 06/08/18 21:00 General NAD Lungs CTA B/L no wheezing/rales/rhonchi ASSESSMENT AND PLAN: 72yo F wtih PMH DM which is diet controlled, HTN, AFib on eliquis, asthma presented to the ER with hemoptysis and cough 1. Hemoptysis- possible irritation from frequent coughing however concern for TB. hemoptysis is minimal at this time.closely monitor Hgb while on eliquis. 2. Acute hypoxic respiratory distress-possible not infectious etiology but vasculitis. slowly improving. will d/w iwth pulm about Bronch for tissue diagnosis. ANCA workup sent. on Unasyn. ID and pulmonary on board. AFB negative. quantiferon indeterminate. remains on airborne isolation per ID 3. Hyponatremia- resolved 4. hypokalemia- resolved 5. Anemia-+iron deficiency and acute blood loss anemia with anemia of chronic disease. unknown baseline. Hgb stable. s/p venofer yesterday.cont po iron. monitor Hgb. normal transfusion thresholds. 6. afib- rate controlled. cont current management. on eliquis. 7. DM- diet controlled.A1c 5.6 cont diet control 8. HTN- controlled. cont current management 9. DVT ppx- eliquis.
--- NOTE | 2018-06-09 13:13 | PN ---
Physical Exam: SUBJECTIVE: Patient seen and examined at bedside this morning. No acute events overnight. Patient has no new complaints. OBJECTIVE: Vital Signs Period Temp Pulse Resp BP Sys/Red Pulse Ox Last 24 Hr 98.3 F-99.2 F 63-90 18-20 116-153/36-76 95 GENERAL: The patient is awake, alert, and fully oriented, on 2L NC HEAD: Normal with no signs of trauma. EYES: PERRLA, EOMI, sclera anicteric, conjunctiva clear. ENT: Ears normal, nares patent, oropharynx clear without exudates, moist mucous membranes. NECK: Trachea midline, full range of motion, supple. LUNGS: +Rhonchi b/l, no wheezes HEART: Regular rate and rhythm, + systolic murmur ABDOMEN: Soft, nontender, nondistended, normoactive bowel sounds. EXTREMITIES: 2+ pulses, warm, well-perfused, no edema. NEUROLOGICAL: Cranial nerves II through XII grossly intact. Normal speech, normal gait. PSYCH: Normal mood, normal affect. SKIN: Warm, dry, normal turgor, no rashes or lesions noted Laboratory Results - last 24 hr 06/08/18 06/09/18 14:40 05:30 WBC 10.7 H RBC 2.31 L Hgb 7.3 L Hct 22.0 L MCV 95.2 MCH 31.8 MCHC 33.4 RDW 13.3 Plt Count 355 MPV 8.4 Urine Color Yellow Urine Appearance Clear Urine pH 6.0 Ur Specific [place] 1.015 Urine Protein 1+ H Urine Glucose (UA) Negative Urine Ketones Negative Urine Blood 2+ H Urine Nitrite Negative Urine Bilirubin Negative Urine Urobilinogen Negative Ur Leukocyte Esterase Trace Urine WBC (Auto) 10 Urine RBC (Auto) 27 Active Medications Generic Name Dose Route Start Last Admin Trade Name Freq PRN Reason Stop Dose Admin Amlodipine Besylate 10 mg 06/03/18 10:00 06/09/18 10:01 Norvasc - PO 10 mg DAILY ANITA Administration Apixaban 5 mg 06/02/18 22:00 06/09/18 10:01 Eliquis - PO 5 mg BID ANITA Administration Atorvastatin Calcium 20 mg 06/02/18 22:00 06/08/18 20:59 Lipitor - PO 20 mg HS ANITA Administration Brimonidine Tartrate 1 drop 06/02/18 22:00 06/09/18 10:12 Alphagan 0.15% - OU 1 drop BID ANITA Administration Ferrous Sulfate 325 mg 06/06/18 11:30 06/09/18 10:00 Feosol - PO 325 mg DAILY ANITA Administration Guaifenesin 5 ml 06/08/18 12:49 06/09/18 02:35 Diabetic Tussin Dm - PO 5 ml Q6H PRN Administration COUGH Hydralazine HCl 100 mg 06/03/18 10:00 06/09/18 10:01 Apresoline - PO 100 mg DAILY ANITA Administration Ampicillin Sodium/Sulbactam 100 mls @ 200 mls/hr 06/07/18 15:00 06/09/18 10: 00 Sodium 1.5 gm/ Sodium Chloride IVPB 200 mls/hr Q6H-IV ANITA Administration Losartan Potassium 50 mg 06/06/18 10:00 06/09/18 10:01 Cozaar - PO 50 mg DAILY ANITA Administration Ondansetron HCl 8 mg 06/09/18 10:08 06/09/18 10:40 Zofran Injection IVPB 8 mg Q8H PRN Administration NAUSEA AND/OR VOMITING Imaging Chest/Thorax CTA No evidence of pulmonary artery emboli. Bilateral patchy infiltrates with consolidates within the right upper lobe which appear unchanged form prior imaging. Chest CT without contrast In comparison to prior studies note is made of interval development of extensive bilateral upper lobe alveolar infiltrates, right more than left. Smaller bilateral lower lobe infiltrates are also seen. Cardiomegaly. Probably dilatation of the main pulmonary artery suggestive of increased pulmonary arterial pressure. Chest X-ray Extremely abnormal CXR with new pulmonary findings and persistently enlarged heart. Echo Clinical correlation is recommended. Right ventricular systolic pressure is elevated at 40-50 mmHg. There is severe tricuspid regurgitation. The right ventricle is moderately dilated. The right ventricular systolic function is moderately reduced. The right atrium is severely dilated. E/A reversal consistent with but not diagnostic of poor LV compliance. The left ventricular wall motion is normal. The left ventricular EF is normal. The left ventricular size, thickness, and function are normal. Chest X-ray (06/07/18) - Bilateral upper lobe predominant pneumonia Chest X-ray (06/08/18) - Decreased bilateral upper lobe consolidative opacities compatible with improving pneumonia. Microbiology 06/03/18 15:25 Blood - Peripheral Venous Blood Culture - Preliminary NO GROWTH OBTAINED AFTER 48 HOURS, INCUBATION TO CONTINUE FOR 3 DAYS. 06/03/18 15:25 Blood - Peripheral Venous Blood Culture - Preliminary NO GROWTH OBTAINED AFTER 48 HOURS, INCUBATION TO CONTINUE FOR 3 DAYS. 06/03/18 19:00 Sputum - Expectorated Gram Stain - Final 06/03/18 19:00 Sputum - Expectorated Sputum Culture - Final Yeast Like Organism 06/03/18 10:36 Sputum - Expectorated AFB Smear Concentration - Final 06/03/18 10:36 Sputum - Expectorated Direct Acid Fast Bacilli Smear - Final 06/03/18 10:36 Sputum - Expectorated Mycobacterial Culture - Preliminary 06/04/18 07:56 Sputum - Expectorated AFB Smear Concentration - Preliminary 06/04/18 07:56 Sputum - Expectorated Direct Acid Fast Bacilli Smear - Final 06/04/18 07:56 Sputum - Expectorated Mycobacterial Culture - Preliminary 06/03/18 19:00 Sputum - Expectorated LONNIE Preparation - Preliminary 06/03/18 19:00 Sputum - Expectorated Fungal Culture - Preliminary 06/03/18 08:12 Urine For Antigen Detection Legionella Antigen - Final 06/03/18 08:12 Urine For Antigen Detection Streptococcus pneumoniae Antigen M - Final ASSESSMENT/PLAN: Patient is a 72 year old female who presented with worsening dyspnea on exertion and hemoptysis for about 3 weeks. #Hemoptysis and PANIAGUA: likely 2/2 CAP, rule out TB -WBC is trending down to 12.1. Will continue to trend WBC. -AFB smear negative, AFB Sputum cultures negative x3. -Quantiferon TB test: Indeterminate. -ALEXIA, c-ANCA, PR3, p-ANCA, MPO Ab pending. -Pulmonary (Dr. Almeida) consulted. Recommendations appreciated: -CXR - decreased bilateral upper lobe consolidative opacities compatible with improving pneumonia -Airborne isolation. -Duoneb PRN -Monitor/quantify hemoptysis. -Bronchoscopy deferred as patient is clinically and radiographically improving. -ID (Dr. Mckeon) consulted. Recommendations appreciated. -Fungal culture - negative -ESR 92 / CRP 2.9 -Unasyn day 3. -Robitussin PRN for cough. #Pulmonary Hypertension -Echo -RV systolic pressure elevated at 40-50 mmHg. Severe TR. RV is moderately dilated. RV systolic function is moderately reduced. RA is severe dilated. -Cardiology (Dr. Gutierres) consulted. Recommendations appreciated: -Chronic condition for patient. She has declined right heart cath/eval by pulmonary HTN specialist numerous times in the past. -Says she will consider it as outpatient follow-up. #Normocytic Anemia -Possibly secondary to possibly lung pathology and inflammation. -Hgb today 7.3 -Iron 33, TIBC 218, Iron saturation 15, Ferritin 68.4 -Stool Guaiac - negative -Retic ct - 2.56 -Ferrous sulfate started. -IV Venofer 200mg given yesterday. -Continue Eliquis unless hgb/hct drops significantly -Will monitor H/H #Hyponatremia: resolved -Likely SIADH from lung pathology and possible hyperglycemia #Hypokalemia: resolved #NIDDMII -Patient was previously on Januvia and Metformin. -Reports that her primary care discontinued all her medications and is currently just on diet and exercise. -A1C - 5.6 -BGM and ISS ACHS #HTN -Continue home medication with Hydralazine 100mg daily, Amlodipine 10mg daily, and Increase Losartan to 50mg BID -Continue to monitor BP #HLD -Continue Lipitor 20mg HS -Lipid panel ordered #Atrial Fibrillation -Rate controlled -Continue Eliquis 5mg BID. If hgb drops or patient has worsening hemoptysis. Will discontinue. #F/E/N -Not on any standing fluids. -Encourage increased oral fluid intake. -Electrolytes wnl. -Sodium restricted/Diabetic diet. #Prophylaxis -Patient on Eliquis #Disposition -Full code -Airborne isolation Visit type - Emergency Visit Emergency Visit: Yes ED Registration Date: 06/02/18 Care time: The patient presented to the Emergency Department on the above date and was hospitalized for further evaluation of their emergent condition. - New Patient This patient is new to me today: Yes Date on this admission: 06/09/18 - Critical Care Critical Care patient: No
--- NOTE | 2018-06-09 16:25 | PATH ---
Cytology Non-Gynecological Report Patient Name: EMILE MADRIGAL [facility]. Rec. #: [id number] /Age/Gender: 1945 (Age: 72) / F Account: [id number] Location: 4 W TELEMETRY U Taken: 06/06/2018 Received: 06/06/2018 Reported: 06/09/2018 Physicians: Yefri Otoole M.D. Specimen(s) Received SPUTUM Clinical History Bilateral pneumonia Final Diagnosis SPUTUM FOR CYTOLOGY: SATISFACTORY FOR EVALUATION. NEGATIVE FOR MALIGNANCY. MACROPHAGES, NEUTROPHILS, AND BENIGN SQUAMOUS CELLS PRESENT. Electronically Signed Frandy Turner M.D. Gross Description Approximately 0.2cc of greenish fluid received fresh. Two cytofunnels prepared.
--- NOTE | 2018-06-09 16:57 | PN ---
Progress Note (short form) - Note Progress Note: feels dizzy today still some hemoptysis Vital Signs Period Temp Pulse Resp BP Sys/Red Pulse Ox Last 24 Hr 98.3 F-99.2 F 63-90 18-20 91-153/36-76 95 cor-rrr murmur unchanged lungs clear abd soft,nt ext trace edema CBC, BMP 06/09/18 05:30 06/04/18 05:30 Microbiology 06/05/18 16:00 Sputum - Expectorated AFB Smear Concentration - Final 06/05/18 16:00 Sputum - Expectorated Direct Acid Fast Bacilli Smear - Final 06/05/18 16:00 Sputum - Expectorated Mycobacterial Culture - Preliminary 06/03/18 15:25 Blood - Peripheral Venous Blood Culture - Final NO GROWTH AFTER 5 DAYS INCUBATION 06/03/18 15:25 Blood - Peripheral Venous Blood Culture - Final NO GROWTH AFTER 5 DAYS INCUBATION 06/04/18 07:56 Sputum - Expectorated AFB Smear Concentration - Final 06/04/18 07:56 Sputum - Expectorated Direct Acid Fast Bacilli Smear - Final 06/04/18 07:56 Sputum - Expectorated Mycobacterial Culture - Preliminary 06/03/18 19:00 Sputum - Expectorated Gram Stain - Final 06/03/18 19:00 Sputum - Expectorated Sputum Culture - Final Yeast Like Organism 06/03/18 10:36 Sputum - Expectorated AFB Smear Concentration - Final 06/03/18 10:36 Sputum - Expectorated Direct Acid Fast Bacilli Smear - Final 06/03/18 10:36 Sputum - Expectorated Mycobacterial Culture - Preliminary 06/03/18 19:00 Sputum - Expectorated LONNIE Preparation - Preliminary 06/03/18 19:00 Sputum - Expectorated Fungal Culture - Preliminary 06/03/18 08:12 Urine For Antigen Detection Legionella Antigen - Final 06/03/18 08:12 Urine For Antigen Detection Streptococcus pneumoniae Antigen (M - Final cxray read as improved a/p bilateral upper lobe infiltrates right greater then left- also malignancy is a possibility would send sputum cytology as well-one sputum negative sputum afb negative times 3 with 2 mtb probes negative d/c afb isolation continue unasyn bronch deferred by pulmonary f/u labs and cultures anemia- ?chronic disease murmur- echo-severe TR with pulmonary HTN anca ? Problem List - Problems (1) Bilateral pulmonary infiltrates on chest x-ray Code(s): R91.8 - OTHER NONSPECIFIC ABNORMAL FINDING OF LUNG FIELD (2) Hemoptysis Code(s): R04.2 - HEMOPTYSIS (3) Anemia Code(s): D64.9 - ANEMIA, UNSPECIFIED
[2018-06-09] MEDS: ATORVASTATIN CA 20 MG TABLET (FP) PO SCH (21:43)
[2018-06-10 00:07] LABS: ATYPICAL pANCA <1:20 titer (Neg:<1:20); C-ANCA <1:20 titer (Neg:<1:20); P-ANCA <1:20 titer (Neg:<1:20)
[2018-06-10] MEDS ORDERED: AMPICILLIN NA/SULBACTAM NA 1.5 GM VIAL ONE ×4 (02:53→21:00)
[2018-06-10] MEDS ORDERED: SODIUM CHLORIDE 100 ML IVPB ONE ×4 (02:53→21:00)
[2018-06-10] MEDS: AMPICILLIN NA/SULBACTAM NA 1.5 GM in SODIUM CHLORIDE 100 ML IVPB SCH ×4 (03:38→21:04)
[2018-06-10 06:56] LABS: BASO % 0.2 % (0-2.0); EOS % 1.5 % (0-4.5); LYMPH % 11.3 % (8-40); MCH 32.3 pg (25.7-33.7); MCHC 33.6 g/dl (32.0-36.0); MEAN CELL VOLUME 96.1 fl (80-96); MEAN PLT VOLUME 8.3 fl (7.5-11.1); MONO % 7.1 % (3.8-10.2); NEUT % 79.9 % (42.8-82.8); PLATELET COUNT 361 K/MM3 (134-434); RBC 2.12 M/mm3 (3.60-5.2); RDW 13.5 % (11.6-15.6); WHITE BLOOD COUNT 10.4 K/mm3 (4.0-10.0)
[2018-06-10 07:28] LABS: ALBUMIN 2.7 g/dl (3.4-5.0); ALK PHOS 80 U/L (45-117); ANION GAP 8 MMOL/L (8-16); BLOOD UREA NITROGEN 15 mg/dL (7-18); CALCIUM 8.7 mg/dL (8.5-10.1); CHLORIDE 102 mmol/L (98-107); CO2 29 mmol/L (21-32); GLUCOSE,RANDOM 78 mg/dL (74-106); PHOSPHOROUS 3.4 mg/dL (2.5-4.9); POTASSIUM 4.2 mmol/L (3.5-5.1); SGOT/AST 32 U/L (15-37); SGPT/ALT 23 U/L (13-61); SODIUM 138 mmol/L (136-145); TOT PROT 6.7 g/dl (6.4-8.2)
[2018-06-10 07:31] LABS: HEMOGLOBIN 6.9 GM/dL (10.7-15.3)
[2018-06-10 07:32] LABS: HEMATOCRIT 20.4 % (32.4-45.2)
--- NOTE | 2018-06-10 08:00 | PN ---
Teaching Attending Note Name of Resident: Elsy Johnston ATTENDING PHYSICIAN STATEMENT I saw and evaluated the patient. I reviewed the resident's note and discussed the case with the resident. I agree with the resident's findings and plan as documented with exceptions below. SUBJECTIVE: Patient seen and examined. scant blood tinged sputum, improved. Breathing better , no new complaints. OBJECTIVE: Vital Signs Period Temp Pulse Resp BP Sys/Red Pulse Ox Last 24 Hr 98.6 F-99.2 F 64-90 18-20 86-153/38-76 Intake & Output 06/07/18 06/08/18 06/09/18 06/10/18 23:59 23:59 23:59 23:59 Intake Total 100 1320 200 480 Balance 100 1320 200 480 Weight 117 lb General: sitting chair in no acute distress CVS: S1S2 regular Chest: RUL/RML and LML rales, good air entry, no wheezing Abdomen: soft, NT, ND, positive bowel sounds Extremities: no edema Home Medications Medication Instructions Recorded Albuterol Sulfate [Proair Hfa] 8.5 gm IH DAILY 06/02/18 Amlodipine Besylate 10 mg PO DAILY 06/02/18 Apixaban [Eliquis] 5 mg PO BID 06/02/18 Atorvastatin Calcium 20 mg PO DAILY 06/02/18 Brimonidine Tartrate [Alphagan 1 drop OU BID 06/02/18 0.15% -] Hydralazine HCl 100 mg PO DAILY 06/02/18 Losartan Potassium 25 mg PO DAILY 06/02/18 Losartan Potassium 50 mg PO DAILY 06/03/18 Active Medications Amlodipine Besylate (Norvasc -) 10 mg PO DAILY [facility] Last Admin: 06/09/18 10:01 Dose: 10 mg Apixaban (Eliquis -) 5 mg PO BID [facility] Last Admin: 06/09/18 21:43 Dose: 5 mg Atorvastatin Calcium (Lipitor -) 20 mg PO HS [facility] Last Admin: 06/09/18 21:43 Dose: 20 mg Brimonidine Tartrate (Alphagan 0.15% -) 1 drop OU BID [facility] Last Admin: 06/09/18 21:44 Dose: 1 drop Ferrous Sulfate (Feosol -) 325 mg PO DAILY [facility] Last Admin: 06/09/18 10:00 Dose: 325 mg Guaifenesin (Diabetic Tussin Dm -) 5 ml PO Q6H PRN PRN Reason: COUGH Last Admin: 06/09/18 02:35 Dose: 5 ml Hydralazine HCl (Apresoline -) 100 mg PO DAILY [facility] Last Admin: 06/09/18 10:01 Dose: 100 mg Ampicillin Sodium/Sulbactam (Sodium 1.5 gm/ Sodium Chloride) 100 mls @ 200 mls/ hr IVPB Q6H-IV ANITA Last Admin: 06/10/18 03:38 Dose: 200 mls/hr Losartan Potassium (Cozaar -) 50 mg PO DAILY [facility] Last Admin: 06/09/18 10:01 Dose: 50 mg Ondansetron HCl (Zofran Injection) 8 mg IVPB Q8H PRN PRN Reason: NAUSEA AND/OR VOMITING Last Admin: 06/09/18 10:40 Dose: 8 mg Laboratory Results - last 24 hr 06/06/18 06/07/18 06/10/18 09:25 13:35 05:30 WBC 10.4 H RBC 2.12 L Hgb 6.9 L* Hct 20.4 L MCV 96.1 H MCH 32.3 MCHC 33.6 RDW 13.5 Plt Count 361 MPV 8.3 Absolute Neuts (auto) 8.3 H Neutrophils % 79.9 Lymphocytes % 11.3 Monocytes % 7.1 Eosinophils % 1.5 Basophils % 0.2 Nucleated RBC % 0 Sodium Potassium Chloride Carbon Dioxide Anion Gap BUN Creatinine Creat Clearance w eGFR Random Glucose Calcium Phosphorus Magnesium Total Bilirubin AST ALT Alkaline Phosphatase Total Protein Albumin c-ANCA <1:20 Proteinase 3 (PR3) <3.5 p-ANCA <1:20 Atypical p-ANCA <1:20 Myeloperoxidase Ab <9.0 Crossmatch See Detail 06/10/18 05:30 WBC RBC Hgb Hct MCV MCH MCHC RDW Plt Count MPV Absolute Neuts (auto) Neutrophils % Lymphocytes % Monocytes % Eosinophils % Basophils % Nucleated RBC % Sodium 138 Potassium 4.2 Chloride 102 Carbon Dioxide 29 Anion Gap 8 BUN 15 Creatinine 1.0 Creat Clearance w eGFR 54.20 Random Glucose 78 Calcium 8.7 Phosphorus 3.4 Magnesium 2.0 Total Bilirubin 1.0 AST 32 ALT 23 Alkaline Phosphatase 80 Total Protein 6.7 Albumin 2.7 L c-ANCA Proteinase 3 (PR3) p-ANCA Atypical p-ANCA Myeloperoxidase Ab Crossmatch Microbiology 09/20/18 16:00 Sputum - Expectorated AFB Smear Concentration - Final 06/05/18 16:00 Sputum - Expectorated Direct Acid Fast Bacilli Smear - Final 06/05/18 16:00 Sputum - Expectorated Mycobacterial Culture - Preliminary 06/03/18 15:25 Blood - Peripheral Venous Blood Culture - Final NO GROWTH AFTER 5 DAYS INCUBATION 06/03/18 15:25 Blood - Peripheral Venous Blood Culture - Final NO GROWTH AFTER 5 DAYS INCUBATION 06/04/18 07:56 Sputum - Expectorated AFB Smear Concentration - Final 06/04/18 07:56 Sputum - Expectorated Direct Acid Fast Bacilli Smear - Final 06/04/18 07:56 Sputum - Expectorated Mycobacterial Culture - Preliminary 06/03/18 19:00 Sputum - Expectorated Gram Stain - Final 06/03/18 19:00 Sputum - Expectorated Sputum Culture - Final Yeast Like Organism 06/03/18 10:36 Sputum - Expectorated AFB Smear Concentration - Final 06/03/18 10:36 Sputum - Expectorated Direct Acid Fast Bacilli Smear - Final 06/03/18 10:36 Sputum - Expectorated Mycobacterial Culture - Preliminary 06/03/18 19:00 Sputum - Expectorated LONNIE Preparation - Preliminary 06/03/18 19:00 Sputum - Expectorated Fungal Culture - Preliminary 06/03/18 08:12 Urine For Antigen Detection Legionella Antigen - Final 06/03/18 08:12 Urine For Antigen Detection Streptococcus pneumoniae Antigen (M - Final CT chest results noted CXR results noted, improved airspace disease ASSESSMENT AND PLAN: 72yo F wtih PMH DM which is diet controlled, HTN, AFib on eliquis, asthma presented to the ER with hemoptysis and cough -Hemoptysis -ACute respiratory distress -Multifocal PNA, r/o vasculitis, TB/fungal illness -Hyponatremia -Hypokalemia -Anemia, iron deficiency/chronic blood loss +/- anemia of chronic disease -Paroxysmal Atrial fibrillation on eliquis -Diet controlled DM, A1c 5.6 -HTN Plan: h/h noted, s/p venofer. Transfuse 1 unit pRBC. Coags noted. Monitor h/h closely. Will need to address eliquis based on h/h, ongoing hemoptysis and hemodynamics. BP noted today, hold losartan/hydralazine this AM, monitor closely, frequent h/ h monitoring. Resume as tolerated. ID/pulmonary input noted. CXR improved. Bronchoscopy if w/u unrevealing and new clinical concerns, improved CXR and clinical presentation currently. Sputum cytology neg for malignancy, repeat per ID sputum afb negative times 3 with 2 mtb probes negative Off afb isolation Unasyn per ID. Replete lytes prn. HR controlled, not on AVN blockers given h/o junctional rhythm/Sinus bradycardia on the same. ISS,diabetic diet DVTPPX eliquis, monitor for now Dispo pending clinical improvement. Plan discussed with patient in detail, all questions answered.
[2018-06-10 09:28] LABS: INR 1.75 (0.83-1.09); PROTHROMBIN TIME (PATIENT) 19.8 SEC (9.7-13.0)
[2018-06-10 09:31] LABS: ACTIVATED PTT 40.3 SECONDS (25.2-36.5)
[2018-06-10] MEDS: FERROUS SO4 325 MG TABLET (FP) PO SCH (09:40)
[2018-06-10] MEDS: amLODIPine BESYLATE 10 MG TABLET (FP) PO SCH (09:40)
[2018-06-10] MEDS: APIXABAN 5 MG TABLET PO SCH ×2 (09:41→21:55)
[2018-06-10] MEDS: BRIMONIDINE TARTRATE 0.15% OPHTHALMIC 5 ML BOTTLE OU SCH ×2 (09:41→21:58)
--- NOTE | 2018-06-10 10:41 | PN ---
Progress Note (short form) - Note Progress Note: s: no cp palps dizzy sob. cough improving. Current Medications Amlodipine Besylate (Norvasc -) 10 mg PO DAILY [facility] Last Admin: 06/10/18 09:40 Dose: 10 mg Apixaban (Eliquis -) 5 mg PO BID [facility] Last Admin: 06/10/18 09:41 Dose: 5 mg Atorvastatin Calcium (Lipitor -) 20 mg PO HS [facility] Last Admin: 06/09/18 21:43 Dose: 20 mg Brimonidine Tartrate (Alphagan 0.15% -) 1 drop OU BID [facility] Last Admin: 06/10/18 09:41 Dose: 1 drop Ferrous Sulfate (Feosol -) 325 mg PO DAILY [facility] Last Admin: 06/10/18 09:40 Dose: 325 mg Guaifenesin (Diabetic Tussin Dm -) 5 ml PO Q6H PRN PRN Reason: COUGH Last Admin: 06/09/18 02:35 Dose: 5 ml Hydralazine HCl (Apresoline -) 100 mg PO DAILY [facility] Last Admin: 06/09/18 10:01 Dose: 100 mg Ampicillin Sodium/Sulbactam (Sodium 1.5 gm/ Sodium Chloride) 100 mls @ 200 mls/ hr IVPB Q6H-IV [facility] Last Admin: 06/10/18 08:43 Dose: 200 mls/hr Losartan Potassium (Cozaar -) 50 mg PO DAILY [facility] Last Admin: 06/09/18 10:01 Dose: 50 mg Ondansetron HCl (Zofran Injection) 8 mg IVPB Q8H PRN PRN Reason: NAUSEA AND/OR VOMITING Last Admin: 06/09/18 10:40 Dose: 8 mg Vital Signs Period Temp Pulse Resp BP Sys/Red Pulse Ox Last 24 Hr 98.8 F-99.2 F 64-72 18-20 86-109/38-58 nad no jvd rrr s1s2 no mrg cta bl, nl eff aao3 trace le edema bl, no c/c abd nt nd pos bs no jaundice diaphoresis Stress Echo 08/02: 1:48 min (SOB). 75% MPHR. BP 140 rest, no change exercise. Non-ischemic stress test by EKG. +Atrial flutter with rapid conduction transiently seen during the recovery period, converting with evidence of brief sinus node arrest and junctional escape rhythm. Echo Findings: (1) No echocardiographic evidence of inducible ischemia--SUBMAX HR. (2) Moderate to severe (eccentric) TR seen. (3) Peak TR gradient is at least 52 mmHg. (4) Resting LV intracavitary gradient of 19 mmHg, rising to 86 mmHg on post- exercise images. (No systolic anterior motion of the mitral valve is seen at rest or post- exercise.) Cardiac CTA 03/03: no L to R shunt evidence. normal pulmonary veins. RV probably normal size. 4.1 cm ascending aorta. echo 05/2018: nl lv, mod dilated rv, mod dec rv fcn, sev denise, mild-mod mr, sev tr, rvsp 40-50, mod ar, mild pr cta lungs 05/2018: no pe, +pna ecg: sr, nl intervals, old IRBBB Echo 03/02 ([facility]): nl LV size and syst fxn; EF 83%. no LVH. slight mid-cavitary gradient (8). LVOT gradient 27 resting, up to 33 with valsalva. no mitral TEJA. dd1. hi LAP. nl LA size. mild-mod RVE, normal function. mild-mod DENISE. severe TR. PASP 67. neg bubble study. Echo 04/2016: 1. The left ventricular size is normal. 2. Overall left ventricular systolic function is normal with, an EF between 65 - 70 %. 3. No regional wall motion abnormalities were noted (apex not well seen). 4. The right ventricle is normal in size and function. 5. Left atrium is mildly dilated by volume. 6. The right atrium is markedly enlarged. 7. 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 8. There is mild aortic regurgitation. 9. The tricuspid valve appears structurally normal. 10. Moderate tricuspid regurgitation present; eccentric jet present, which hugs the interatrial septum--severity may be underestimated. 11. There is moderate pulmonary hypertension. 12. The right ventricular systolic pressure, as measured by Doppler, is 61 mmHg (assuming RA pressure of 3 mmHg). 13. [id number] pulmonic regurgitation. Echo 04/30: nl LV/EF; dd1; nl RV; nl LA; mild DENISE; mild AI; eccentric TR at least moderate; nl LAP; nl RAP; mild pHTN (49); prob mild dilated ascending aorta (3.7); IASA (no PFO) Echo 2013 (at [facility]D): moderate pulm HTN; 56mmHg Renal dopplers 11/30: L stones, no hydro; normal size kidneys; no RA stenosis V/Q 04/2016: low prob for PE; central airway clumping/abnl ventil c/w airways dx and/or parenchymal dz PFTs 06/01: mild obstructive defect; mild decr DLCO; mild BD response a/p: 72 f hx pulm htn, htn, hld, here with sob, cough. sob, cough: -PNA - improving, on abx - pulm, ID following Anemia - hb 6.9, ordered for 1 unit PRBC - would continue eliquis due high [id number] Paroxysmal atrial fibrillation: - not on av bushra blockers due to h/o junctional rhythm, sinus tessie - on eliquis due to [id number] of 4, would continue htn: -cont current meds hld: -cont statin Pulmonary hypertension, rv dysfunction, sev tr: -chronic condition for patient. she has declined RHC cath/eval by pulm htn specialist numerous times in past. says she will consider it, outpt f/u with Dr. Gutierres
--- NOTE | 2018-06-10 11:33 | PN ---
Progress Note, Physician History of Present Illness: pulmonary alert,feeling better,less hemoptysis - Current Medication List Current Medications: Active Medications Amlodipine Besylate (Norvasc -) 10 mg PO DAILY [facility] Last Admin: 06/10/18 09:40 Dose: 10 mg Apixaban (Eliquis -) 5 mg PO BID [facility] Last Admin: 06/10/18 09:41 Dose: 5 mg Atorvastatin Calcium (Lipitor -) 20 mg PO HS [facility] Last Admin: 06/09/18 21:43 Dose: 20 mg Brimonidine Tartrate (Alphagan 0.15% -) 1 drop OU BID [facility] Last Admin: 06/10/18 09:41 Dose: 1 drop Ferrous Sulfate (Feosol -) 325 mg PO DAILY [facility] Last Admin: 06/10/18 09:40 Dose: 325 mg Guaifenesin (Diabetic Tussin Dm -) 5 ml PO Q6H PRN PRN Reason: COUGH Last Admin: 06/09/18 02:35 Dose: 5 ml Hydralazine HCl (Apresoline -) 100 mg PO DAILY [facility] Last Admin: 06/09/18 10:01 Dose: 100 mg Ampicillin Sodium/Sulbactam (Sodium 1.5 gm/ Sodium Chloride) 100 mls @ 200 mls/ hr IVPB Q6H-IV [facility] Last Admin: 06/10/18 08:43 Dose: 200 mls/hr Losartan Potassium (Cozaar -) 50 mg PO DAILY [facility] Last Admin: 06/09/18 10:01 Dose: 50 mg Ondansetron HCl (Zofran Injection) 8 mg IVPB Q8H PRN PRN Reason: NAUSEA AND/OR VOMITING Last Admin: 06/09/18 10:40 Dose: 8 mg - Objective Vital Signs: Vital Signs Temperature 98.2 F 06/10/18 10:00 Pulse Rate 66 06/10/18 10:00 Respiratory Rate 18 06/10/18 10:00 Blood Pressure 110/56 L 06/10/18 10:00 O2 Sat by Pulse Oximetry (%) 96 06/10/18 09:00 Constitutional: Yes: Well Nourished, Calm Eyes: Yes: WNL HENT: Yes: WNL Neck: Yes: WNL Cardiovascular: Yes: Pulse Irregular, S1, S2 Respiratory: Yes: Rales (few crackles) Gastrointestinal: Yes: Normal Bowel Sounds, Soft Extremities: Yes: WNL Edema: No Labs: CBC, BMP 06/10/18 05:30 06/10/18 05:30 INR, PTT INR 1.75 (0.83-1.09) H 06/10/18 08:43 Assessment/Plan Problem List - Problems (1) Hemoptysis Code(s): R04.2 - HEMOPTYSIS (2) Pneumonia Code(s): J18.9 - PNEUMONIA, UNSPECIFIED ORGANISM (3) Pulmonary HTN Code(s): I27.20 - PULMONARY HYPERTENSION, UNSPECIFIED (4) Asthma Code(s): J45.909 - UNSPECIFIED ASTHMA, UNCOMPLICATED Assessment/Plan Bilateral Pneumonia improving r/o TB Hemoptysis improving Pulmonary HTN Asthma Atrial Fibrillation HTN DM ANEMIA - antibiotics as per ID - ac - inhaled bronchodilators - monitor/quantify hemoptysis - DVT prophylaxis - normal transfusion threshold - f/u chest x-rays -defer flex bronchoscopy patient clinically and radiographically improving. DR LANCE
[2018-06-10] MEDS: ACETAMINOPHEN 325 MG TABLET (FP) PO PRN (11:53)
--- NOTE | 2018-06-10 12:11 | PN ---
Physical Exam: SUBJECTIVE: Patient seen and examined at bedside this morning. No acute events overnight. Patient has less hemoptysis and still has cough, relieved by Robitussin. OBJECTIVE: Vital Signs Period Temp Pulse Resp BP Sys/Red Pulse Ox Last 24 Hr 98.2 F-99.2 F 64-72 18-20 86-110/38-58 96 GENERAL: The patient is awake, alert, and fully oriented, on 2L NC HEAD: Normal with no signs of trauma. EYES: PERRLA, EOMI, sclera anicteric, conjunctiva clear. ENT: Ears normal, nares patent, oropharynx clear without exudates, moist mucous membranes. NECK: Trachea midline, full range of motion, supple. LUNGS: Clear to auscultation bilaterally HEART: Regular rate and rhythm, + systolic murmur ABDOMEN: Soft, nontender, nondistended, normoactive bowel sounds. EXTREMITIES: 2+ pulses, warm, well-perfused, no edema. NEUROLOGICAL: Cranial nerves II through XII grossly intact. Normal speech, normal gait. PSYCH: Normal mood, normal affect. SKIN: Warm, dry, normal turgor, no rashes or lesions noted Laboratory Results - last 24 hr 06/06/18 06/07/18 06/10/18 09:25 13:35 05:30 WBC 10.4 H RBC 2.12 L Hgb 6.9 L* Hct 20.4 L MCV 96.1 H MCH 32.3 MCHC 33.6 RDW 13.5 Plt Count 361 MPV 8.3 Absolute Neuts (auto) 8.3 H Neutrophils % 79.9 Lymphocytes % 11.3 Monocytes % 7.1 Eosinophils % 1.5 Basophils % 0.2 Nucleated RBC % 0 PT with INR INR PTT (Actin FS) Sodium Potassium Chloride Carbon Dioxide Anion Gap BUN Creatinine Creat Clearance w eGFR Random Glucose Calcium Phosphorus Magnesium Total Bilirubin AST ALT Alkaline Phosphatase Total Protein Albumin c-ANCA <1:20 Proteinase 3 (PR3) <3.5 p-ANCA <1:20 Atypical p-ANCA <1:20 Myeloperoxidase Ab <9.0 Blood Type Antibody Screen Crossmatch See Detail 06/10/18 06/10/18 06/10/18 05:30 08:43 08:43 WBC RBC Hgb Hct MCV MCH MCHC RDW Plt Count MPV Absolute Neuts (auto) Neutrophils % Lymphocytes % Monocytes % Eosinophils % Basophils % Nucleated RBC % PT with INR 19.80 H INR 1.75 H PTT (Actin FS) 40.3 H Sodium 138 Potassium 4.2 Chloride 102 Carbon Dioxide 29 Anion Gap 8 BUN 15 Creatinine 1.0 Creat Clearance w eGFR 54.20 Random Glucose 78 Calcium 8.7 Phosphorus 3.4 Magnesium 2.0 Total Bilirubin 1.0 AST 32 ALT 23 Alkaline Phosphatase 80 Total Protein 6.7 Albumin 2.7 L c-ANCA Proteinase 3 (PR3) p-ANCA Atypical p-ANCA Myeloperoxidase Ab Blood Type B POSITIVE Antibody Screen Negative Crossmatch See Detail 06/10/18 08:43 WBC RBC Hgb Hct MCV MCH MCHC RDW Plt Count MPV Absolute Neuts (auto) Neutrophils % Lymphocytes % Monocytes % Eosinophils % Basophils % Nucleated RBC % PT with INR INR PTT (Actin FS) Cancelled Sodium Potassium Chloride Carbon Dioxide Anion Gap BUN Creatinine Creat Clearance w eGFR Random Glucose Calcium Phosphorus Magnesium Total Bilirubin AST ALT Alkaline Phosphatase Total Protein Albumin c-ANCA Proteinase 3 (PR3) p-ANCA Atypical p-ANCA Myeloperoxidase Ab Blood Type Antibody Screen Crossmatch Active Medications Generic Name Dose Route Start Last Admin Trade Name Freq PRN Reason Stop Dose Admin Acetaminophen 650 mg 06/10/18 11:43 06/10/18 11:53 Tylenol - PO 650 mg Q4H PRN Administration FEVER Amlodipine Besylate 10 mg 06/03/18 10:00 06/10/18 09:40 Norvasc - PO 10 mg DAILY [facility] Administration Apixaban 5 mg 06/02/18 22:00 06/10/18 09:41 Eliquis - PO 5 mg BID [facility] Administration Atorvastatin Calcium 20 mg 06/02/18 22:00 06/09/18 21:43 Lipitor - PO 20 mg HS [facility] Administration Brimonidine Tartrate 1 drop 06/02/18 22:00 06/10/18 09:41 Alphagan 0.15% - OU 1 drop BID [facility] Administration Ferrous Sulfate 325 mg 06/06/18 11:30 06/10/18 09:40 Feosol - PO 325 mg DAILY [facility] Administration Guaifenesin 5 ml 06/08/18 12:49 06/09/18 02:35 Diabetic Tussin Dm - PO 5 ml Q6H PRN Administration COUGH Hydralazine HCl 100 mg 06/03/18 10:00 06/09/18 10:01 Apresoline - PO 100 mg DAILY [facility] Administration Ampicillin Sodium/Sulbactam 100 mls @ 200 mls/hr 06/07/18 15:00 06/10/18 08: 43 Sodium 1.5 gm/ Sodium Chloride IVPB 200 mls/hr Q6H-IV [facility] Administration Losartan Potassium 50 mg 06/06/18 10:00 06/09/18 10:01 Cozaar - PO 50 mg DAILY [facility] Administration Ondansetron HCl 8 mg 06/09/18 10:08 06/09/18 10:40 Zofran Injection IVPB 8 mg Q8H PRN Administration NAUSEA AND/OR VOMITING Imaging Chest/Thorax CTA No evidence of pulmonary artery emboli. Bilateral patchy infiltrates with consolidates within the right upper lobe which appear unchanged form prior imaging. Chest CT without contrast In comparison to prior studies note is made of interval development of extensive bilateral upper lobe alveolar infiltrates, right more than left. Smaller bilateral lower lobe infiltrates are also seen. Cardiomegaly. Probably dilatation of the main pulmonary artery suggestive of increased pulmonary arterial pressure. Chest X-ray Extremely abnormal CXR with new pulmonary findings and persistently enlarged heart. Echo Clinical correlation is recommended. Right ventricular systolic pressure is elevated at 40-50 mmHg. There is severe tricuspid regurgitation. The right ventricle is moderately dilated. The right ventricular systolic function is moderately reduced. The right atrium is severely dilated. E/A reversal consistent with but not diagnostic of poor LV compliance. The left ventricular wall motion is normal. The left ventricular EF is normal. The left ventricular size, thickness, and function are normal. Chest X-ray (06/07/18) - Bilateral upper lobe predominant pneumonia Chest X-ray (06/08/18) - Decreased bilateral upper lobe consolidative opacities compatible with improving pneumonia. Microbiology 06/03/18 15:25 Blood - Peripheral Venous Blood Culture - Preliminary NO GROWTH OBTAINED AFTER 48 HOURS, INCUBATION TO CONTINUE FOR 3 DAYS. 06/03/18 15:25 Blood - Peripheral Venous Blood Culture - Preliminary NO GROWTH OBTAINED AFTER 48 HOURS, INCUBATION TO CONTINUE FOR 3 DAYS. 06/03/18 19:00 Sputum - Expectorated Gram Stain - Final 06/03/18 19:00 Sputum - Expectorated Sputum Culture - Final Yeast Like Organism 06/03/18 10:36 Sputum - Expectorated AFB Smear Concentration - Final 06/03/18 10:36 Sputum - Expectorated Direct Acid Fast Bacilli Smear - Final 06/03/18 10:36 Sputum - Expectorated Mycobacterial Culture - Preliminary 06/04/18 07:56 Sputum - Expectorated AFB Smear Concentration - Preliminary 06/04/18 07:56 Sputum - Expectorated Direct Acid Fast Bacilli Smear - Final 06/04/18 07:56 Sputum - Expectorated Mycobacterial Culture - Preliminary 06/03/18 19:00 Sputum - Expectorated LONNIE Preparation - Preliminary 06/03/18 19:00 Sputum - Expectorated Fungal Culture - Preliminary 06/03/18 08:12 Urine For Antigen Detection Legionella Antigen - Final 06/03/18 08:12 Urine For Antigen Detection Streptococcus pneumoniae Antigen M - Final ASSESSMENT/PLAN: Patient is a 72 year old female who presented with worsening dyspnea on exertion and hemoptysis for about 3 weeks. #Hemoptysis and PANIAGUA: likely 2/2 CAP -WBC is trending down to 10.9 today. -AFB smear negative, AFB Sputum cultures negative x3. -Quantiferon TB test: Indeterminate. -Fungal culture - negative -c-ANCA, PR3, p-ANCA, MPO Ab negative. -ALEXIA pending. -Aspergillus, B-1,3-D glucan pending. -Pulmonary (Dr. Almeida) consulted. Recommendations appreciated: -Duoneb PRN -Monitor/quantify hemoptysis. -Bronchoscopy deferred as patient is clinically and radiographically improving. -ID (Dr. Mckeon) consulted. Recommendations appreciated. -Unasyn day 4. -Robitussin PRN for cough. #Normocytic Anemia -Possibly secondary to lung pathology and inflammation. -Hgb today 6.9 -1 unit pRBC transfused. -Repeat CBC after transfusion -Repeat Stool guaiac ordered. -Iron 33, TIBC 218, Iron saturation 15, Ferritin 68.4 -Retic ct - 2.56 -Ferrous sulfate started. -Continue Eliquis as patient is high CHADSVaSC risk score. -Will monitor H/H. Transfuse as necessary. #Pulmonary Hypertension -Echo -RV systolic pressure elevated at 40-50 mmHg. Severe TR. RV is moderately dilated. RV systolic function is moderately reduced. RA is severe dilated. -Cardiology (Dr. Gutierres) consulted. Recommendations appreciated: -Chronic condition for patient. She has declined right heart cath/eval by pulmonary HTN specialist numerous times in the past. -Says she will consider it as outpatient follow-up. #Hyponatremia: resolved -Likely SIADH from lung pathology and possible hyperglycemia #Hypokalemia: resolved #NIDDMII -Patient was previously on Januvia and Metformin. -Reports that her primary care discontinued all her medications and is currently just on diet and exercise. -A1C - 5.6 -BGM and ISS ACHS #HTN -Continue home medication with Hydralazine 100mg daily, Amlodipine 10mg daily, and Increase Losartan to 50mg BID -Continue to monitor BP #HLD -Continue Lipitor 20mg HS -Lipid panel ordered #Atrial Fibrillation -Rate controlled -Continue Eliquis 5mg BID. CHADSVaSC risk score 4. #F/E/N -Not on any standing fluids. -Encourage increased oral fluid intake. -Electrolytes wnl. -Sodium restricted/Diabetic diet. #Prophylaxis -Patient on Eliquis #Disposition -Full code -Discontinue isolation. Visit type - Emergency Visit Emergency Visit: Yes ED Registration Date: 06/02/18 Care time: The patient presented to the Emergency Department on the above date and was hospitalized for further evaluation of their emergent condition. - New Patient This patient is new to me today: Yes Date on this admission: 06/10/18 - Critical Care Critical Care patient: No
[2018-06-10] MEDS ORDERED: PT OWN MED DRAWER 7, Y5N ONE (20:59)
[2018-06-10] MEDS: guaiFENesin/D-M SUGAR-FREE/ACLHOL-FREE 118 ML BOTTLE PO PRN (21:55)
[2018-06-10] MEDS: ATORVASTATIN CA 20 MG TABLET (FP) PO SCH (21:55)
[2018-06-11] MEDS: ACETAMINOPHEN 325 MG TABLET (FP) PO PRN ×2 (01:15→20:01)
[2018-06-11] MEDS ORDERED: AMPICILLIN NA/SULBACTAM NA 1.5 GM VIAL ONE ×4 (02:54→21:18)
[2018-06-11] MEDS ORDERED: SODIUM CHLORIDE 100 ML IVPB ONE ×4 (02:55→21:19)
[2018-06-11] MEDS: AMPICILLIN NA/SULBACTAM NA 1.5 GM in SODIUM CHLORIDE 100 ML IVPB SCH ×4 (02:55→21:22)
[2018-06-11] MEDS ORDERED: ALBUTEROL SO4 2.5/IPRATROPIUM 0.5 INH SOL 3 ML VIAL.NEB. NEB ONE (03:18)
[2018-06-11 07:34] LABS: BASO % 0.5 % (0-2.0); EOS % 1.6 % (0-4.5); HEMATOCRIT 23.6 % (32.4-45.2); MCH 31.7 pg (25.7-33.7); MCHC 33.9 g/dl (32.0-36.0); MEAN CELL VOLUME 93.6 fl (80-96); MEAN PLT VOLUME 7.8 fl (7.5-11.1); MONO % 5.7 % (3.8-10.2); NEUT % 82.2 % (42.8-82.8); PLATELET COUNT 309 K/MM3 (134-434); RBC 2.52 M/mm3 (3.60-5.2); RDW 13.7 % (11.6-15.6); WHITE BLOOD COUNT 10.8 K/mm3 (4.0-10.0)
[2018-06-11] MEDS ORDERED: PT OWN MED DRAWER 7, Y5N ONE ×2 (10:46→21:20)
[2018-06-11] MEDS: LOSARTAN POTASSIUM 50 MG TABLET (FP) PO SCH (10:51)
[2018-06-11] MEDS: FERROUS SO4 325 MG TABLET (FP) PO SCH (10:51)
[2018-06-11] MEDS: amLODIPine BESYLATE 10 MG TABLET (FP) PO SCH (10:51)
[2018-06-11] MEDS: BRIMONIDINE TARTRATE 0.15% OPHTHALMIC 5 ML BOTTLE OU SCH ×2 (10:52→21:21)
[2018-06-11] MEDS: hydrALAZINE HCL 50 MG TABLET (FP) PO SCH (10:52)
[2018-06-11] MEDS: APIXABAN 5 MG TABLET PO SCH ×2 (10:52→21:21)
--- NOTE | 2018-06-11 12:27 | PN ---
Progress Note (short form) - Note Progress Note: s: no cp palps dizzy sob. cough improving. Current Medications Acetaminophen (Tylenol -) 650 mg PO Q4H PRN PRN Reason: FEVER Last Admin: 06/11/18 01:15 Dose: 650 mg Amlodipine Besylate (Norvasc -) 10 mg PO DAILY [facility] Last Admin: 06/11/18 10:51 Dose: 10 mg Apixaban (Eliquis -) 5 mg PO BID [facility] Last Admin: 06/11/18 10:52 Dose: 5 mg Atorvastatin Calcium (Lipitor -) 20 mg PO HS [facility] Last Admin: 06/10/18 21:55 Dose: 20 mg Brimonidine Tartrate (Alphagan 0.15% -) 1 drop OU BID [facility] Last Admin: 06/11/18 10:52 Dose: 1 drop Ferrous Sulfate (Feosol -) 325 mg PO DAILY [facility] Last Admin: 06/11/18 10:51 Dose: 325 mg Guaifenesin (Diabetic Tussin Dm -) 5 ml PO Q6H PRN PRN Reason: COUGH Last Admin: 06/10/18 21:55 Dose: 5 ml Hydralazine HCl (Apresoline -) 100 mg PO DAILY [facility] Last Admin: 06/11/18 10:52 Dose: 100 mg Ampicillin Sodium/Sulbactam (Sodium 1.5 gm/ Sodium Chloride) 100 mls @ 200 mls/ hr IVPB Q6H-IV [facility] Last Admin: 06/11/18 10:50 Dose: 200 mls/hr Losartan Potassium (Cozaar -) 50 mg PO DAILY [facility] Last Admin: 06/11/18 10:51 Dose: 50 mg Ondansetron HCl (Zofran Injection) 8 mg IVPB Q8H PRN PRN Reason: NAUSEA AND/OR VOMITING Last Admin: 06/09/18 10:40 Dose: 8 mg Vital Signs Period Temp Pulse Resp BP Sys/Red Pulse Ox Last 24 Hr 98.4 F-100.0 F 60-80 18-20 108-126/53-73 96 nad no jvd rrr s1s2 no mrg cta bl, nl eff aao3 trace le edema bl, no c/c abd nt nd pos bs no jaundice diaphoresis Stress Echo 08/02: 1:48 min (SOB). 75% MPHR. BP 140 rest, no change exercise. Non-ischemic stress test by EKG. +Atrial flutter with rapid conduction transiently seen during the recovery period, converting with evidence of brief sinus node arrest and junctional escape rhythm. Echo Findings: (1) No echocardiographic evidence of inducible ischemia--SUBMAX HR. (2) Moderate to severe (eccentric) TR seen. (3) Peak TR gradient is at least 52 mmHg. (4) Resting LV intracavitary gradient of 19 mmHg, rising to 86 mmHg on post- exercise images. (No systolic anterior motion of the mitral valve is seen at rest or post- exercise.) Cardiac CTA 03/03: no L to R shunt evidence. normal pulmonary veins. RV probably normal size. 4.1 cm ascending aorta. echo 05/2018: nl lv, mod dilated rv, mod dec rv fcn, sev denise, mild-mod mr, sev tr, rvsp 40-50, mod ar, mild pr cta lungs 05/2018: no pe, +pna ecg: sr, nl intervals, old IRBBB Echo 03/02 ([facility]): nl LV size and syst fxn; EF 83%. no LVH. slight mid-cavitary gradient (8). LVOT gradient 27 resting, up to 33 with valsalva. no mitral TEJA. dd1. hi LAP. nl LA size. mild-mod RVE, normal function. mild-mod DENISE. severe TR. PASP 67. neg bubble study. Echo 04/2016: 1. The left ventricular size is normal. 2. Overall left ventricular systolic function is normal with, an EF between 65 - 70 %. 3. No regional wall motion abnormalities were noted (apex not well seen). 4. The right ventricle is normal in size and function. 5. Left atrium is mildly dilated by volume. 6. The right atrium is markedly enlarged. 7. 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 8. There is mild aortic regurgitation. 9. The tricuspid valve appears structurally normal. 10. Moderate tricuspid regurgitation present; eccentric jet present, which hugs the interatrial septum--severity may be underestimated. 11. There is moderate pulmonary hypertension. 12. The right ventricular systolic pressure, as measured by Doppler, is 61 mmHg (assuming RA pressure of 3 mmHg). 13. [id number] pulmonic regurgitation. Echo 04/30: nl LV/EF; dd1; nl RV; nl LA; mild DENISE; mild AI; eccentric TR at least moderate; nl LAP; nl RAP; mild pHTN (49); prob mild dilated ascending aorta (3.7); IASA (no PFO) Echo 2013 (at [facility]): moderate pulm HTN; 56mmHg Renal dopplers 11/30: L stones, no hydro; normal size kidneys; no RA stenosis V/Q 04/2016: low prob for PE; central airway clumping/abnl ventil c/w airways dx and/or parenchymal dz PFTs 06/01: mild obstructive defect; mild decr DLCO; mild BD response a/p: 72 f hx pulm htn, htn, hld, here with sob, cough. sob, cough: - PNA - improving, on abx - pulm, ID following Anemia - s/p 1 unit PRBC - would continue eliquis due high [id number] Paroxysmal atrial fibrillation: - not on av bushra blockers due to h/o junctional rhythm, sinus tessie - on eliquis due to [id number] of 4, would continue htn: -cont current meds hld: -cont statin Pulmonary hypertension, rv dysfunction, sev tr: -chronic condition for patient. she has declined RHC cath/eval by pulm htn specialist numerous times in past. says she will consider it, outpt f/u with Dr. Gutierres
--- NOTE | 2018-06-11 14:26 | PN ---
Progress Note, Physician History of Present Illness: pulmonary alert,feeling better,less hemoptysis - Current Medication List Current Medications: Active Medications Acetaminophen (Tylenol -) 650 mg PO Q4H PRN PRN Reason: FEVER Last Admin: 06/11/18 01:15 Dose: 650 mg Amlodipine Besylate (Norvasc -) 10 mg PO DAILY [facility] Last Admin: 06/11/18 10:51 Dose: 10 mg Apixaban (Eliquis -) 5 mg PO BID [facility] Last Admin: 06/11/18 10:52 Dose: 5 mg Atorvastatin Calcium (Lipitor -) 20 mg PO HS [facility] Last Admin: 06/10/18 21:55 Dose: 20 mg Brimonidine Tartrate (Alphagan 0.15% -) 1 drop OU BID [facility] Last Admin: 06/11/18 10:52 Dose: 1 drop Ferrous Sulfate (Feosol -) 325 mg PO DAILY [facility] Last Admin: 06/11/18 10:51 Dose: 325 mg Guaifenesin (Diabetic Tussin Dm -) 5 ml PO Q6H PRN PRN Reason: COUGH Last Admin: 06/10/18 21:55 Dose: 5 ml Hydralazine HCl (Apresoline -) 100 mg PO DAILY [facility] Last Admin: 06/11/18 10:52 Dose: 100 mg Ampicillin Sodium/Sulbactam (Sodium 1.5 gm/ Sodium Chloride) 100 mls @ 200 mls/ hr IVPB Q6H-IV [facility] Last Admin: 06/11/18 10:50 Dose: 200 mls/hr Losartan Potassium (Cozaar -) 50 mg PO DAILY [facility] Last Admin: 06/11/18 10:51 Dose: 50 mg Ondansetron HCl (Zofran Injection) 8 mg IVPB Q8H PRN PRN Reason: NAUSEA AND/OR VOMITING Last Admin: 06/09/18 10:40 Dose: 8 mg - Objective Vital Signs: Vital Signs Temperature 98.9 F 06/11/18 08:57 Pulse Rate 60 06/11/18 08:57 Respiratory Rate 19 06/11/18 09:00 Blood Pressure 126/71 06/11/18 08:57 O2 Sat by Pulse Oximetry (%) 96 06/11/18 09:00 Constitutional: Yes: Calm, Thin Eyes: Yes: WNL HENT: Yes: WNL Neck: Yes: WNL Cardiovascular: Yes: Pulse Irregular, S1, S2 Respiratory: Yes: Rales (few bibasialr crackles) Gastrointestinal: Yes: Normal Bowel Sounds, Soft Extremities: Yes: WNL Edema: No Labs: CBC, BMP 06/11/18 07:15 - ....Imaging Chest X-ray: Report Reviewed, Image Reviewed (improving kendall infiltrates) Assessment/Plan Problem List - Problems (1) Hemoptysis Code(s): R04.2 - HEMOPTYSIS (2) Pneumonia Code(s): J18.9 - PNEUMONIA, UNSPECIFIED ORGANISM (3) Pulmonary HTN Code(s): I27.20 - PULMONARY HYPERTENSION, UNSPECIFIED (4) Asthma Code(s): J45.909 - UNSPECIFIED ASTHMA, UNCOMPLICATED Assessment/Plan Bilateral Pneumonia improving r/o TB Hemoptysis improving Pulmonary HTN Asthma Atrial Fibrillation HTN DM ANEMIA - antibiotics as per ID - ac - inhaled bronchodilators - monitor/quantify hemoptysis - DVT prophylaxis - normal transfusion threshold - f/u chest x-rays -defer flex bronchoscopy patient clinically and radiographically improving. DR LANCE
--- NOTE | 2018-06-11 17:35 | PN ---
Teaching Attending Note Name of Resident: Elsy Johnston ATTENDING PHYSICIAN STATEMENT I saw and evaluated the patient. I reviewed the resident's note and discussed the case with the resident. I agree with the resident's findings and plan as documented with exceptions below. SUBJECTIVE: Patient seen and examined, scant hemoptysis, breathing improved. Overall feels better. no new complaints. OBJECTIVE: Vital Signs Period Temp Pulse Resp BP Sys/Red Pulse Ox Last 24 Hr 98.4 F-100.0 F 60-80 19-20 115-126/53-73 96-96 Intake & Output 06/08/18 06/09/18 06/10/18 06/11/18 23:59 23:59 23:59 23:59 Intake Total 6048 143 9708 850 Balance 9338 476 8519 850 Weight 117 lb General: sitting in bed in no acute distress Chest: right upper rales, decreased breath sounds at bases, overall unchanged lung exam Abdomen:soft, NT, ND Extremities: no edema Active Medications Acetaminophen (Tylenol -) 650 mg PO Q4H PRN PRN Reason: FEVER Last Admin: 06/11/18 01:15 Dose: 650 mg Amlodipine Besylate (Norvasc -) 10 mg PO DAILY [facility] Last Admin: 06/11/18 10:51 Dose: 10 mg Apixaban (Eliquis -) 5 mg PO BID ANITA Last Admin: 06/11/18 10:52 Dose: 5 mg Atorvastatin Calcium (Lipitor -) 20 mg PO HS [facility] Last Admin: 06/10/18 21:55 Dose: 20 mg Brimonidine Tartrate (Alphagan 0.15% -) 1 drop OU BID ANITA Last Admin: 06/11/18 10:52 Dose: 1 drop Ferrous Sulfate (Feosol -) 325 mg PO DAILY ANITA Last Admin: 06/11/18 10:51 Dose: 325 mg Guaifenesin (Diabetic Tussin Dm -) 5 ml PO Q6H PRN PRN Reason: COUGH Last Admin: 06/10/18 21:55 Dose: 5 ml Hydralazine HCl (Apresoline -) 100 mg PO DAILY [facility] Last Admin: 06/11/18 10:52 Dose: 100 mg Ampicillin Sodium/Sulbactam (Sodium 1.5 gm/ Sodium Chloride) 100 mls @ 200 mls/ hr IVPB Q6H-IV ANITA Last Admin: 06/11/18 15:17 Dose: 200 mls/hr Losartan Potassium (Cozaar -) 50 mg PO DAILY ANITA Last Admin: 06/11/18 10:51 Dose: 50 mg Ondansetron HCl (Zofran Injection) 8 mg IVPB Q8H PRN PRN Reason: NAUSEA AND/OR VOMITING Last Admin: 06/09/18 10:40 Dose: 8 mg Laboratory Results - last 24 hr 06/07/18 06/11/18 13:35 07:15 WBC 10.8 H RBC 2.52 L Hgb 8.0 L Hct 23.6 L D MCV 93.6 MCH 31.7 MCHC 33.9 RDW 13.7 Plt Count 309 MPV 7.8 Absolute Neuts (auto) 8.9 H Neutrophils % 82.2 Lymphocytes % 10.0 Monocytes % 5.7 Eosinophils % 1.6 Basophils % 0.5 Nucleated RBC % 0 ALEXIA Screen Positive H ALEXIA Homogeneous Pattern TNP ALEXIA Nucleolar Pattern TNP ALEXIA Spindle Dajuan Pattern TNP ALEXIA Midbody Pattern TNP ALEXIA Centriole Pattern TNP ALEXIA Nuclear Dot Pattern TNP ALEXIA PCNA Pattern TNP ALEXIA Nuclear Membr Pat TNP ALEXIA Speckled Pattern 1:640 H ALEXIA Centromere Pattern TNP Microbiology 06/05/18 16:00 Sputum - Expectorated AFB Smear Concentration - Final 06/05/18 16:00 Sputum - Expectorated Direct Acid Fast Bacilli Smear - Final 06/05/18 16:00 Sputum - Expectorated Mycobacterial Culture - Preliminary 06/03/18 15:25 Blood - Peripheral Venous Blood Culture - Final NO GROWTH AFTER 5 DAYS INCUBATION 06/03/18 15:25 Blood - Peripheral Venous Blood Culture - Final NO GROWTH AFTER 5 DAYS INCUBATION 06/04/18 07:56 Sputum - Expectorated AFB Smear Concentration - Final 06/04/18 07:56 Sputum - Expectorated Direct Acid Fast Bacilli Smear - Final 06/04/18 07:56 Sputum - Expectorated Mycobacterial Culture - Preliminary 06/03/18 19:00 Sputum - Expectorated Gram Stain - Final 06/03/18 19:00 Sputum - Expectorated Sputum Culture - Final Yeast Like Organism 06/03/18 10:36 Sputum - Expectorated AFB Smear Concentration - Final 06/03/18 10:36 Sputum - Expectorated Direct Acid Fast Bacilli Smear - Final 06/03/18 10:36 Sputum - Expectorated Mycobacterial Culture - Preliminary 06/03/18 19:00 Sputum - Expectorated LONNIE Preparation - Preliminary 06/03/18 19:00 Sputum - Expectorated Fungal Culture - Preliminary 06/03/18 08:12 Urine For Antigen Detection Legionella Antigen - Final 06/03/18 08:12 Urine For Antigen Detection Streptococcus pneumoniae Antigen (M - Final ASSESSMENT AND PLAN: 72yo F wtih PMH DM which is diet controlled, HTN, AFib on eliquis, asthma presented to the ER with hemoptysis and cough -Hemoptysis -ACute respiratory distress -Multifocal PNA, r/o vasculitis, TB/fungal illness -Hyponatremia -Hypokalemia -Anemia, iron deficiency/chronic blood loss +/- anemia of chronic disease -Paroxysmal Atrial fibrillation on eliquis -Diet controlled DM, A1c 5.6 -HTN Plan: h/h noted, s/p venofer. s/p 1 unit PRBC 06/10 with appropriate response. Scant hemoptysis but improved. Monitor CBC Continue eliquis with caution. Continue losartan/hydralazine ID/pulmonary input noted. CXR improved, repeat today noted. Discussed with Dr. Almeida, hold off on bronchoscopy given improved infiltrate and clinical status. Sputum cytology neg for malignancy, repeat per ID sputum afb negative times 3 with 2 mtb probes negative Off afb isolation Unasyn, transition to augmentin in AM if no concerns. Replete lytes prn. HR controlled, not on AVN blockers given h/o junctional rhythm/Sinus bradycardia on the same. ISS,diabetic diet Dispo d/c in 24 hours if continues to improve. DVTPPX eliquis, monitor for now PT eval, Home oxygen needs assessment. Plan discussed with patient in detail, all questions answered.
--- NOTE | 2018-06-11 17:50 | PN ---
Progress Note (short form) - Note Progress Note: feels better after transfusion Vital Signs Period Temp Pulse Resp BP Sys/Red Pulse Ox Last 24 Hr 98.4 F-100.0 F 60-80 19-20 115-126/53-73 96-96 cor-rrr lungs clear abd soft,nt ext no edema CBC, BMP 06/11/18 07:15 06/10/18 05:30 Microbiology 06/05/18 16:00 Sputum - Expectorated AFB Smear Concentration - Final 06/05/18 16:00 Sputum - Expectorated Direct Acid Fast Bacilli Smear - Final 06/05/18 16:00 Sputum - Expectorated Mycobacterial Culture - Preliminary 06/03/18 15:25 Blood - Peripheral Venous Blood Culture - Final NO GROWTH AFTER 5 DAYS INCUBATION 06/03/18 15:25 Blood - Peripheral Venous Blood Culture - Final NO GROWTH AFTER 5 DAYS INCUBATION 06/04/18 07:56 Sputum - Expectorated AFB Smear Concentration - Final 06/04/18 07:56 Sputum - Expectorated Direct Acid Fast Bacilli Smear - Final 06/04/18 07:56 Sputum - Expectorated Mycobacterial Culture - Preliminary 06/03/18 19:00 Sputum - Expectorated Gram Stain - Final 06/03/18 19:00 Sputum - Expectorated Sputum Culture - Final Yeast Like Organism 06/03/18 10:36 Sputum - Expectorated AFB Smear Concentration - Final 06/03/18 10:36 Sputum - Expectorated Direct Acid Fast Bacilli Smear - Final 06/03/18 10:36 Sputum - Expectorated Mycobacterial Culture - Preliminary 06/03/18 19:00 Sputum - Expectorated LONNIE Preparation - Preliminary 06/03/18 19:00 Sputum - Expectorated Fungal Culture - Preliminary 06/03/18 08:12 Urine For Antigen Detection Legionella Antigen - Final 06/03/18 08:12 Urine For Antigen Detection Streptococcus pneumoniae Antigen (M - Final anca negative hiv negative positive sang cxray read as improved a/p bilateral upper lobe infiltrates right greater then left- sputum cytology negative times one, sputum afb negative times three, dna probe negative times 2 can switch to po augmentin in am will need f/u imaging bronch deferred by pulmonary f/u labs and cultures anemia- ?chronic disease murmur- echo-severe TR with pulmonary HTN +SANG-rheumatology consult ? Problem List - Problems (1) Bilateral pulmonary infiltrates on chest x-ray Code(s): R91.8 - OTHER NONSPECIFIC ABNORMAL FINDING OF LUNG FIELD (2) Hemoptysis Code(s): R04.2 - HEMOPTYSIS (3) Anemia Code(s): D64.9 - ANEMIA, UNSPECIFIED
--- NOTE | 2018-06-11 17:53 | PN ---
Physical Exam: SUBJECTIVE: Patient seen and examined this morning. No acute events overnight. Patient is feeling better with minimal shortness of breath. Still with minimal hemoptysis. OBJECTIVE: Vital Signs Period Temp Pulse Resp BP Sys/Red Pulse Ox Last 24 Hr 98.4 F-100.0 F 60-80 19-20 115-126/53-73 96-96 GENERAL: The patient is awake, alert, and fully oriented, on 2L NC HEAD: Normal with no signs of trauma. EYES: PERRLA, EOMI, sclera anicteric, conjunctiva clear. ENT: Ears normal, nares patent, oropharynx clear without exudates, moist mucous membranes. NECK: Trachea midline, full range of motion, supple. LUNGS: Clear to auscultation bilaterally HEART: Regular rate and rhythm, + systolic murmur ABDOMEN: Soft, nontender, nondistended, normoactive bowel sounds. EXTREMITIES: 2+ pulses, warm, well-perfused, no edema. NEUROLOGICAL: Cranial nerves II through XII grossly intact. Normal speech, normal gait. PSYCH: Normal mood, normal affect. SKIN: Warm, dry, normal turgor, no rashes or lesions noted Laboratory Results - last 24 hr 06/07/18 06/11/18 13:35 07:15 WBC 10.8 H RBC 2.52 L Hgb 8.0 L Hct 23.6 L D MCV 93.6 MCH 31.7 MCHC 33.9 RDW 13.7 Plt Count 309 MPV 7.8 Absolute Neuts (auto) 8.9 H Neutrophils % 82.2 Lymphocytes % 10.0 Monocytes % 5.7 Eosinophils % 1.6 Basophils % 0.5 Nucleated RBC % 0 ALEXIA Screen Positive H ALEXIA Homogeneous Pattern TNP ALEXIA Nucleolar Pattern TNP ALEXIA Spindle Dajuan Pattern TNP ALEXIA Midbody Pattern TNP ALEXIA Centriole Pattern TNP ALEXIA Nuclear Dot Pattern TNP ALEXIA PCNA Pattern TNP ALEXIA Nuclear Membr Pat TNP ALEXIA Speckled Pattern 1:640 H ALEXIA Centromere Pattern TNP Active Medications Generic Name Dose Route Start Last Admin Trade Name Freq PRN Reason Stop Dose Admin Acetaminophen 650 mg 06/10/18 11:43 06/11/18 01:15 Tylenol - PO 650 mg Q4H PRN Administration FEVER Amlodipine Besylate 10 mg 06/03/18 10:00 06/11/18 10:51 Norvasc - PO 10 mg DAILY ANITA Administration Apixaban 5 mg 06/02/18 22:00 06/11/18 10:52 Eliquis - PO 5 mg BID ANITA Administration Atorvastatin Calcium 20 mg 06/02/18 22:00 06/10/18 21:55 Lipitor - PO 20 mg HS ANITA Administration Brimonidine Tartrate 1 drop 06/02/18 22:00 06/11/18 10:52 Alphagan 0.15% - OU 1 drop BID ANITA Administration Ferrous Sulfate 325 mg 06/06/18 11:30 06/11/18 10:51 Feosol - PO 325 mg DAILY ANITA Administration Guaifenesin 5 ml 06/08/18 12:49 06/10/18 21:55 Diabetic Tussin Dm - PO 5 ml Q6H PRN Administration COUGH Hydralazine HCl 100 mg 06/03/18 10:00 06/11/18 10:52 Apresoline - PO 100 mg DAILY ANITA Administration Ampicillin Sodium/Sulbactam 100 mls @ 200 mls/hr 06/07/18 15:00 06/11/18 15: 17 Sodium 1.5 gm/ Sodium Chloride IVPB 200 mls/hr Q6H-IV ANITA Administration Losartan Potassium 50 mg 06/06/18 10:00 06/11/18 10:51 Cozaar - PO 50 mg DAILY ANITA Administration Ondansetron HCl 8 mg 06/09/18 10:08 06/09/18 10:40 Zofran Injection IVPB 8 mg Q8H PRN Administration NAUSEA AND/OR VOMITING Imaging Chest/Thorax CTA No evidence of pulmonary artery emboli. Bilateral patchy infiltrates with consolidates within the right upper lobe which appear unchanged form prior imaging. Chest CT without contrast In comparison to prior studies note is made of interval development of extensive bilateral upper lobe alveolar infiltrates, right more than left. Smaller bilateral lower lobe infiltrates are also seen. Cardiomegaly. Probably dilatation of the main pulmonary artery suggestive of increased pulmonary arterial pressure. Chest X-ray Extremely abnormal CXR with new pulmonary findings and persistently enlarged heart. Echo Clinical correlation is recommended. Right ventricular systolic pressure is elevated at 40-50 mmHg. There is severe tricuspid regurgitation. The right ventricle is moderately dilated. The right ventricular systolic function is moderately reduced. The right atrium is severely dilated. E/A reversal consistent with but not diagnostic of poor LV compliance. The left ventricular wall motion is normal. The left ventricular EF is normal. The left ventricular size, thickness, and function are normal. Chest X-ray (06/07/18) - Bilateral upper lobe predominant pneumonia Chest X-ray (06/08/18) - Decreased bilateral upper lobe consolidative opacities compatible with improving pneumonia. Chest X-ray (06/11/18) - Resolving bilateral upper lobe consolidation. No pleural effusion or pneumothorax is seen. Unchanged contour of the cardiac silhouette. Microbiology 06/03/18 15:25 Blood - Peripheral Venous Blood Culture - Preliminary NO GROWTH OBTAINED AFTER 48 HOURS, INCUBATION TO CONTINUE FOR 3 DAYS. 06/03/18 15:25 Blood - Peripheral Venous Blood Culture - Preliminary NO GROWTH OBTAINED AFTER 48 HOURS, INCUBATION TO CONTINUE FOR 3 DAYS. 06/03/18 19:00 Sputum - Expectorated Gram Stain - Final 06/03/18 19:00 Sputum - Expectorated Sputum Culture - Final Yeast Like Organism 06/03/18 10:36 Sputum - Expectorated AFB Smear Concentration - Final 06/03/18 10:36 Sputum - Expectorated Direct Acid Fast Bacilli Smear - Final 06/03/18 10:36 Sputum - Expectorated Mycobacterial Culture - Preliminary 06/04/18 07:56 Sputum - Expectorated AFB Smear Concentration - Preliminary 06/04/18 07:56 Sputum - Expectorated Direct Acid Fast Bacilli Smear - Final 06/04/18 07:56 Sputum - Expectorated Mycobacterial Culture - Preliminary 06/03/18 19:00 Sputum - Expectorated LONNIE Preparation - Preliminary 06/03/18 19:00 Sputum - Expectorated Fungal Culture - Preliminary 06/03/18 08:12 Urine For Antigen Detection Legionella Antigen - Final 06/03/18 08:12 Urine For Antigen Detection Streptococcus pneumoniae Antigen M - Final ASSESSMENT/PLAN: Patient is a 72 year old female who presented with worsening dyspnea on exertion and hemoptysis for about 3 weeks. #Hemoptysis and PANIAGUA: likely 2/2 CAP -WBC is trending down to 10.8 today. -Repeat CXR - resolving bilateral upper lobe consolidation. -AFB smear negative, AFB Sputum cultures negative x3. -Quantiferon TB test: Indeterminate. -Fungal culture - negative -c-ANCA, PR3, p-ANCA, MPO Ab negative. -ALEXIA positive. --> Will need rheumatology consult as outpatient. -Aspergillus, B-1,3-D glucan pending. -Pulmonary (Dr. Almeida) consulted. Recommendations appreciated: -Duoneb PRN -Continue antibiotics. -Monitor/quantify hemoptysis. -Bronchoscopy deferred as patient is clinically and radiographically improving. -ID (Dr. Mckeon) consulted. Recommendations appreciated. -Unasyn day 5. May switch to PO augmentin in the AM. -Robitussin PRN for cough. #Normocytic Anemia -Possibly secondary to lung pathology and inflammation. -Hgb today 8.0 s/p 1 unit pRBC transfused yesterday. -Stool guaiac -negative -Iron 33, TIBC 218, Iron saturation 15, Ferritin 68.4 -Retic ct - 2.56 -Ferrous sulfate started. -Continue Eliquis as patient is high CHADSVaSC risk score. -Will monitor H/H. Transfuse as necessary. #Pulmonary Hypertension -Echo -RV systolic pressure elevated at 40-50 mmHg. Severe TR. RV is moderately dilated. RV systolic function is moderately reduced. RA is severe dilated. -Cardiology (Dr. Gutierres) consulted. Recommendations appreciated: -Chronic condition for patient. She has declined right heart cath/eval by pulmonary HTN specialist numerous times in the past. -Says she will consider it as outpatient follow-up. #Hyponatremia: resolved -Likely SIADH from lung pathology and possible hyperglycemia #Hypokalemia: resolved #NIDDMII -Patient was previously on Januvia and Metformin. -Reports that her primary care discontinued all her medications and is currently just on diet and exercise. -A1C - 5.6 -BGM and ISS ACHS #HTN -Continue home medication with Hydralazine 100mg daily, Amlodipine 10mg daily, and Increase Losartan to 50mg BID -Continue to monitor BP #HLD -Continue Lipitor 20mg HS -Lipid panel ordered #Atrial Fibrillation -Rate controlled -Continue Eliquis 5mg BID. CHADSVaSC risk score 4. #F/E/N -Not on any standing fluids. -Encourage increased oral fluid intake. -Electrolytes wnl. -Sodium restricted/Diabetic diet. #Prophylaxis -Patient on Eliquis #Disposition -Full code -Discontinue isolation. Visit type - Emergency Visit Emergency Visit: Yes ED Registration Date: 06/02/18 Care time: The patient presented to the Emergency Department on the above date and was hospitalized for further evaluation of their emergent condition. - New Patient This patient is new to me today: Yes Date on this admission: 06/11/18 - Critical Care Critical Care patient: No
[2018-06-11] MEDS: guaiFENesin/D-M SUGAR-FREE/ACLHOL-FREE 118 ML BOTTLE PO PRN (21:21)
[2018-06-11] MEDS: ATORVASTATIN CA 20 MG TABLET (FP) PO SCH (21:21)
--- NOTE | 2018-06-11 23:25 | CONSULT ---
Consult - History of Present Illness History of Present Illness: 72 year old female with a PMHx of HTN, HLD, NIDDMII (Diet controlled), Atrial Fibrillation, Asthma/Bronchitis, sinusitis, allergies, admitted with a 1 month history of hemoptysis and progression of shortness of breath. The patient reports she has had shortness of breewath since childhood - she was limited in her usual playing due to SOB. Since she has tubbs dmultiple allergies, asthma and frequent episodes of sinusitis. One month ago she developed hemoptysis with coughing and progressive shortness of breath to the point that she can only walk from room to room. Recently she has had significant weakness and poor apatite that improve since admission. She has history of right total hip replacement and denies other joint pain., She denies skin rash, oral ulcers, refd eyes, or fever. On admission a CT scan of the chest revealed extensive bilateral upper lobe infiltrates R>L, cardiomegaly and dilatation of main pulmonary artery. Echocardiogram: RV pressure elevated (40-50). RV systolic function moderately reduced and LV ejection fraction was normal. Creatinine was 1.0, eGFR 54. Urinalysis with protein 1+, blood 2_, WBC 10 and RBC 27. ALEXIA 1:640 with speckled pattern and ANCA, myeloperoxidase and proteinase-3 were all negative. ESR 92. Eosinophils were normal. Repeat CXR (06/11) reported with resolved bilateral upper lobe pneumonia and unchanged contour or cardiovascular siluette. - History Source History Provided By: Patient, Medical Record - Past Medical History Cardio/Vascular: Yes: AFIB, HTN, Hyperlipdemia Pulmonary: Yes: Asthma Renal/: Yes: Other (renal cyst and adrenal lesion) ...: No Endocrine: Yes: Diabetes Mellitus - Alcohol/Substance Use Hx Alcohol Use: No History of Substance Use: reports: None - Smoking History Smoking history: Never smoked Home Medications - Allergies Allergies/Adverse Reactions: Allergies Allergy/AdvReac Type Severity Reaction Status Date / Time melon Allergy Verified 06/09/18 12:42 strawberry Allergy Verified 06/09/18 12:42 - Home Medications Home Medications: Ambulatory Orders Albuterol Sulfate [Proair Hfa] 8.5 gm IH DAILY 06/02/18 Amlodipine Besylate 10 mg PO DAILY 06/02/18 Apixaban [Eliquis] 5 mg PO BID 06/02/18 Atorvastatin Calcium 20 mg PO DAILY 06/02/18 Brimonidine Tartrate [Alphagan 0.15% -] 1 drop OU BID 06/02/18 Hydralazine HCl 100 mg PO DAILY 06/02/18 Losartan Potassium 25 mg PO DAILY 06/02/18 Losartan Potassium 50 mg PO DAILY 06/03/18 Family Disease History - Family Disease History Other Family History: Has a son who is in the penitentiary. Review of Systems - Review of Systems Constitutional: reports: Malaise, Unintentional Wgt. Loss Eyes: reports: No Symptoms HENT: reports: No Symptoms Neck: reports: No Symptoms Cardiovascular: reports: Shortness of Breath Respiratory: reports: Hemoptysis, SOB Gastrointestinal: reports: No Symptoms Musculoskeletal: reports: Muscle Weakness Integumentary: reports: No Symptoms Neurological: reports: No Symptoms Physical Exam Vital Signs: Vital Signs Temperature 101.9 F H 06/11/18 20:00 Pulse Rate 60 06/11/18 20:00 Respiratory Rate 20 06/11/18 20:00 Blood Pressure 149/67 06/11/18 20:00 O2 Sat by Pulse Oximetry (%) 96 06/11/18 09:00 Constitutional: Yes: Mild Distress Eyes: Yes: WNL HENT: Yes: WNL Neck: Yes: WNL Cardiovascular: Yes: S1, S2, Other (3.6 systolic murmur in LSB.) Gastrointestinal: Yes: WNL Musculoskeletal: Yes: Other (Heberden's nodes. No active joints.) Integumentary: Yes: WNL Labs: CBC, BMP 06/11/18 07:15 06/10/18 05:30 Laboratory Tests 06/02/18 06/02/18 06/02/18 08:44 08:44 21:50 ESR Retic Count 2.56 H Creat Clearance w eGFR Hemoglobin A1c % 5.6 Total Bilirubin AST ALT Alkaline Phosphatase Troponin I 0.02 Total Protein Urine Color Urine Appearance Urine pH Ur Specific Strum Urine Protein Urine Glucose (UA) Urine Ketones Urine Blood Urine Nitrite Urine Bilirubin Urine Urobilinogen Ur Leukocyte Esterase Urine WBC (Auto) Urine RBC (Auto) ALEXIA Speckled Pattern c-ANCA Proteinase 3 (PR3) p-ANCA Atypical p-ANCA Myeloperoxidase Ab M.pneumoniae IgG Titer M.pneumoniae IgM Titer TB Test (QFT) 06/02/18 06/02/18 06/04/18 21:50 21:50 06:00 ESR 92 H Retic Count Creat Clearance w eGFR Hemoglobin A1c % Total Bilirubin AST ALT Alkaline Phosphatase Troponin I Total Protein Urine Color Urine Appearance Urine pH Ur Specific Strum Urine Protein Urine Glucose (UA) Urine Ketones Urine Blood Urine Nitrite Urine Bilirubin Urine Urobilinogen Ur Leukocyte Esterase Urine WBC (Auto) Urine RBC (Auto) ALEXIA Speckled Pattern c-ANCA Proteinase 3 (PR3) p-ANCA Atypical p-ANCA Myeloperoxidase Ab M.pneumoniae IgG Titer 561 H M.pneumoniae IgM Titer <770 TB Test (QFT) Ideterminate 06/07/18 06/08/18 06/10/18 13:35 14:40 05:30 ESR Retic Count Creat Clearance w eGFR 54.20 Hemoglobin A1c % Total Bilirubin 1.0 AST 32 ALT 23 Alkaline Phosphatase 80 Troponin I Total Protein 6.7 Urine Color Yellow Urine Appearance Clear Urine pH 6.0 Ur Specific Strum 1.015 Urine Protein 1+ H Urine Glucose (UA) Negative Urine Ketones Negative Urine Blood 2+ H Urine Nitrite Negative Urine Bilirubin Negative Urine Urobilinogen Negative Ur Leukocyte Esterase Trace Urine WBC (Auto) 10 Urine RBC (Auto) 27 ALEXIA Speckled Pattern 1:640 H c-ANCA <1:20 Proteinase 3 (PR3) <3.5 p-ANCA <1:20 Atypical p-ANCA <1:20 Myeloperoxidase Ab <9.0 M.pneumoniae IgG Titer M.pneumoniae IgM Titer TB Test (QFT) Problem List - Problems (1) Connective tissue disease Assessment/Plan: 72 year old female with history of asthma, allergies, sinusitis and pulmonary hypertension. Admitted with bilateral upper lobe pneumonia and hemoptysis. Work-up revealed ALEXIA positive. ANCA, myeloperoxidase and proteinase-3 were negative. Urinalysis with protein 1+ and blood 2+. It is possible that most of her symptoms are related to pulmonary hypertension and pneumonia that is improving, however I cannot rule out lupus (SLE of drug induced lupus 2o to hydralazine). or vasculitis. Plan: Laboratory work-up including anti-histone, complement, anti-DNA ds, anti- CHELSEA. Continue same medications Code(s): M35.9 - SYSTEMIC INVOLVEMENT OF CONNECTIVE TISSUE, UNSPECIFIED
[2018-06-12] MEDS ORDERED: SODIUM CHLORIDE 100 ML IVPB ONE ×3 (02:25→16:03)
[2018-06-12] MEDS ORDERED: AMPICILLIN NA/SULBACTAM NA 1.5 GM VIAL ONE ×3 (02:25→16:03)
[2018-06-12] MEDS: AMPICILLIN NA/SULBACTAM NA 1.5 GM in SODIUM CHLORIDE 100 ML IVPB SCH ×3 (02:30→16:05)
[2018-06-12] MEDS ORDERED: PT OWN MED DRAWER 7, Y5N ONE ×4 (06:18→22:56)
[2018-06-12] MEDS: ACETAMINOPHEN 325 MG TABLET (FP) PO PRN ×2 (06:21→16:49)
[2018-06-12] MEDS: guaiFENesin/D-M SUGAR-FREE/ACLHOL-FREE 118 ML BOTTLE PO PRN ×2 (06:21→23:23)
[2018-06-12 08:01] LABS: HEMOGLOBIN 8.3 GM/dL (10.7-15.3); MCH 31.9 pg (25.7-33.7); MCHC 33.3 g/dl (32.0-36.0); MEAN CELL VOLUME 95.8 fl (80-96); MEAN PLT VOLUME 8.1 fl (7.5-11.1); PLATELET COUNT 319 K/MM3 (134-434); RBC 2.61 M/mm3 (3.60-5.2); WHITE BLOOD COUNT 9.6 K/mm3 (4.0-10.0)
[2018-06-12 08:12] LABS: INR 1.52 (0.83-1.09); PROTHROMBIN TIME (PATIENT) 17.2 SEC (9.7-13.0)
--- NOTE | 2018-06-12 08:13 | PN ---
Teaching Attending Note Name of Resident: Elsy Johnston ATTENDING PHYSICIAN STATEMENT I saw and evaluated the patient. I reviewed the resident's note and discussed the case with the resident. I agree with the resident's findings and plan as documented with exceptions below. SUBJECTIVE: Patient seen and examined. scant hemoptysis but improved. Some Left lower abdominal pain reports from coughing, no urinary symptoms. OBJECTIVE: Vital Signs Period Temp Pulse Resp BP Sys/Red Pulse Ox Last 24 Hr 98.5 F-101.9 F 60-77 19-20 113-149/60-71 95-96 Intake & Output 06/09/18 06/10/18 06/11/18 06/12/18 23:59 23:59 23:59 23:59 Intake Total 200 1630 1450 400 Balance 200 1630 1450 400 Weight 117 lb General: sitting in bed in no acute distress Chest: left basilar rales, few right upper/middle rales, no wheezing Abdomen: soft, NT throughout, ND, positive bowel sounds, no CVA or suprapubic tenderness Extremities: no edema Active Medications Acetaminophen (Tylenol -) 650 mg PO Q4H PRN PRN Reason: FEVER Last Admin: 06/12/18 06:21 Dose: 650 mg Amlodipine Besylate (Norvasc -) 10 mg PO DAILY [facility] Last Admin: 06/11/18 10:51 Dose: 10 mg Apixaban (Eliquis -) 5 mg PO BID [facility] Last Admin: 06/11/18 21:21 Dose: 5 mg Atorvastatin Calcium (Lipitor -) 20 mg PO HS [facility] Last Admin: 06/11/18 21:21 Dose: 20 mg Brimonidine Tartrate (Alphagan 0.15% -) 1 drop OU BID [facility] Last Admin: 06/11/18 21:21 Dose: 1 drop Ferrous Sulfate (Feosol -) 325 mg PO DAILY [facility] Last Admin: 06/11/18 10:51 Dose: 325 mg Guaifenesin (Diabetic Tussin Dm -) 5 ml PO Q6H PRN PRN Reason: COUGH Last Admin: 06/12/18 06:21 Dose: 5 ml Hydralazine HCl (Apresoline -) 100 mg PO DAILY [facility] Last Admin: 06/11/18 10:52 Dose: 100 mg Ampicillin Sodium/Sulbactam (Sodium 1.5 gm/ Sodium Chloride) 100 mls @ 200 mls/ hr IVPB Q6H-IV [facility] Last Admin: 06/12/18 02:30 Dose: 200 mls/hr Losartan Potassium (Cozaar -) 50 mg PO DAILY [facility] Last Admin: 06/11/18 10:51 Dose: 50 mg Ondansetron HCl (Zofran Injection) 8 mg IVPB Q8H PRN PRN Reason: NAUSEA AND/OR VOMITING Last Admin: 06/09/18 10:40 Dose: 8 mg Laboratory Results - last 24 hr 06/09/18 06/12/18 06/12/18 05:30 06:18 06:18 WBC 9.6 Corrected WBC (auto) RBC 2.61 L Hgb 8.3 L Hct 25.0 L MCV 95.8 MCH 31.9 MCHC 33.3 RDW 14.0 Plt Count 319 MPV 8.1 Absolute Neuts (auto) Neutrophils % Neutrophils % (Manual) 89.3 H Band Neutrophils % 1.0 Lymphocytes % Lymphocytes % (Manual) 4.8 L Monocytes % Monocytes % (Manual) 1 L Eosinophils % Eosinophils % (Manual) 2.9 Basophils % Basophils % (Manual) 0.0 Myelocytes % (Man) 0 Promyelocytes % (Man) 0 Blast Cells % (Manual) 0 Nucleated RBC % 5 H Metamyelocytes 0 Hypochromia 1+ Platelet Estimate Normal Platelet Comment Polychromasia 1+ Poikilocytosis 0 Anisocytosis 1+ Microcytosis 0 Macrocytosis 1+ Ovalocytes 1+ PT with INR 17.20 H INR 1.52 H Urine Color Urine Appearance Urine pH Ur Specific [place] Urine Protein Urine Glucose (UA) Urine Ketones Urine Blood Urine Nitrite Urine Bilirubin Urine Urobilinogen Ur Leukocyte Esterase Urine WBC (Auto) Urine RBC (Auto) Ur Epithelial Cells Urine Mucus Beta-(1,3)-D-Glucan 60 06/12/18 06/12/18 06:18 09:15 WBC Cancelled Corrected WBC (auto) Cancelled RBC Cancelled Hgb Cancelled Hct Cancelled MCV Cancelled MCH Cancelled MCHC Cancelled RDW Cancelled Plt Count Cancelled MPV Cancelled Absolute Neuts (auto) Cancelled Neutrophils % Cancelled Neutrophils % (Manual) Band Neutrophils % Lymphocytes % Cancelled Lymphocytes % (Manual) Monocytes % Cancelled Monocytes % (Manual) Eosinophils % Cancelled Eosinophils % (Manual) Basophils % Cancelled Basophils % (Manual) Myelocytes % (Man) Promyelocytes % (Man) Blast Cells % (Manual) Nucleated RBC % Cancelled Metamyelocytes Hypochromia Platelet Estimate Cancelled Platelet Comment Cancelled Polychromasia Poikilocytosis Anisocytosis Microcytosis Macrocytosis Ovalocytes PT with INR INR Urine Color Yellow Urine Appearance Clear Urine pH 5.0 Ur Specific [place] 1.013 Urine Protein 1+ H Urine Glucose (UA) Negative Urine Ketones Negative Urine Blood 3+ H Urine Nitrite Negative Urine Bilirubin Negative Urine Urobilinogen Negative Ur Leukocyte Esterase Trace Urine WBC (Auto) 9 Urine RBC (Auto) 48 Ur Epithelial Cells Rare Urine Mucus Rare Beta-(1,3)-D-Glucan Microbiology 06/05/18 16:00 Sputum - Expectorated AFB Smear Concentration - Final 06/05/18 16:00 Sputum - Expectorated Direct Acid Fast Bacilli Smear - Final 06/05/18 16:00 Sputum - Expectorated Mycobacterial Culture - Preliminary 06/03/18 15:25 Blood - Peripheral Venous Blood Culture - Final NO GROWTH AFTER 5 DAYS INCUBATION 06/03/18 15:25 Blood - Peripheral Venous Blood Culture - Final NO GROWTH AFTER 5 DAYS INCUBATION 06/04/18 07:56 Sputum - Expectorated AFB Smear Concentration - Final 06/04/18 07:56 Sputum - Expectorated Direct Acid Fast Bacilli Smear - Final 06/04/18 07:56 Sputum - Expectorated Mycobacterial Culture - Preliminary 06/03/18 19:00 Sputum - Expectorated Gram Stain - Final 06/03/18 19:00 Sputum - Expectorated Sputum Culture - Final Yeast Like Organism 06/03/18 10:36 Sputum - Expectorated AFB Smear Concentration - Final 06/03/18 10:36 Sputum - Expectorated Direct Acid Fast Bacilli Smear - Final 06/03/18 10:36 Sputum - Expectorated Mycobacterial Culture - Preliminary 06/03/18 19:00 Sputum - Expectorated LONNIE Preparation - Preliminary 06/03/18 19:00 Sputum - Expectorated Fungal Culture - Preliminary 06/03/18 08:12 Urine For Antigen Detection Legionella Antigen - Final 06/03/18 08:12 Urine For Antigen Detection Streptococcus pneumoniae Antigen (M - Final ASSESSMENT AND PLAN: 72yo F wtih PMH DM which is diet controlled, HTN, AFib on eliquis, asthma presented to the ER with hemoptysis and cough -Hemoptysis -Acute respiratory distress -Multifocal PNA, r/o vasculitis, TB/fungal illness -Hyponatremia -Hypokalemia -Anemia, iron deficiency/chronic blood loss +/- anemia of chronic disease -Paroxysmal Atrial fibrillation on eliquis -Diet controlled DM, A1c 5.6 -HTN Plan: Recurrent fevers. Repeat CXR with resolving consolidations. Blood cx sent. U/a noted, some hematuria. CT A/p non contrast to address occult source. Discussed with Dr. Mckeon, follow up recs. ?inflammatory process. ALEXIA screen positive. Rheumatology input noted. Follow up anti-histone, complement, anti-DNA ds, anti- CHELSEA. h/h noted, s/p venofer. s/p 1 unit PRBC 06/10 with appropriate response. Scant hemoptysis but improved. Monitor CBC Continue eliquis with caution. Continue losartan/hydralazine ID/pulmonary input noted. Discussed with Dr. Hurtado. Sputum cytology neg for malignancy sputum afb negative times 3 with 2 mtb probes negative Off afb isolation Replete lytes prn. HR controlled, not on AVN blockers given h/o junctional rhythm/Sinus bradycardia on the same. ISS,diabetic diet Dispo hold d/c planning given recurrent fevers. DVTPPX eliquis, monitor for now PT eval, Home oxygen needs assessment. Plan discussed with patient in detail, all questions answered.
[2018-06-12] MEDS: APIXABAN 5 MG TABLET PO SCH ×2 (09:11→21:44)
[2018-06-12] MEDS: amLODIPine BESYLATE 10 MG TABLET (FP) PO SCH (09:11)
[2018-06-12] MEDS: FERROUS SO4 325 MG TABLET (FP) PO SCH (09:11)
[2018-06-12] MEDS: LOSARTAN POTASSIUM 50 MG TABLET (FP) PO SCH (09:11)
[2018-06-12] MEDS: BRIMONIDINE TARTRATE 0.15% OPHTHALMIC 5 ML BOTTLE OU SCH ×2 (09:12→21:45)
[2018-06-12] MEDS: hydrALAZINE HCL 50 MG TABLET (FP) PO SCH (09:12)
[2018-06-12 10:29] LABS: URINE APPEARANCE CLEAR; URINE BILIRUBIN NEGATIVE (<2.0 mg/dL); URINE COLOR YELLOW; URINE GLUCOSE (UA) NEGATIVE (NEGATIVE); URINE KETONE NEGATIVE (NEGATIVE); URINE LEUK ESTERASE TRACE (NEGATIVE); URINE NITRITE NEGATIVE (NEGATIVE); URINE UROBILINOGEN NEGATIVE mg/dL (0.2-1.0)
[2018-06-12 10:30] LABS: URINE PROTEIN 1+ (NEGATIVE)
[2018-06-12 10:31] LABS: EPI CELLS RARE /HPF (FEW); URINE MUCUS RARE
--- NOTE | 2018-06-12 11:01 | PN ---
Progress Note (short form) - Note Progress Note: s: no cp palps dizzy. sob better. cough better Current Medications Generic Name Dose Route Start Last Admin Trade Name Freq PRN Reason Stop Dose Admin Acetaminophen 650 mg 06/10/18 11:43 06/12/18 06:21 Tylenol - PO 650 mg Q4H PRN Administration FEVER Amlodipine Besylate 10 mg 06/03/18 10:00 06/12/18 09:11 Norvasc - PO 10 mg DAILY [facility] Administration Apixaban 5 mg 06/02/18 22:00 06/12/18 09:11 Eliquis - PO 5 mg BID [facility] Administration Atorvastatin Calcium 20 mg 06/02/18 22:00 06/11/18 21:21 Lipitor - PO 20 mg HS [facility] Administration Brimonidine Tartrate 1 drop 06/02/18 22:00 06/12/18 09:12 Alphagan 0.15% - OU 1 drop BID [facility] Administration Ferrous Sulfate 325 mg 06/06/18 11:30 06/12/18 09:11 Feosol - PO 325 mg DAILY [facility] Administration Guaifenesin 5 ml 06/08/18 12:49 06/12/18 06:21 Diabetic Tussin Dm - PO 5 ml Q6H PRN Administration COUGH Hydralazine HCl 100 mg 06/03/18 10:00 06/12/18 09:12 Apresoline - PO 100 mg DAILY [facility] Administration Ampicillin Sodium/Sulbactam 100 mls @ 200 mls/hr 06/07/18 15:00 06/12/18 09: 09 Sodium 1.5 gm/ Sodium Chloride IVPB 200 mls/hr Q6H-IV [facility] Administration Losartan Potassium 50 mg 06/06/18 10:00 06/12/18 09:11 Cozaar - PO 50 mg DAILY [facility] Administration Ondansetron HCl 8 mg 06/09/18 10:08 06/09/18 10:40 Zofran Injection IVPB 8 mg Q8H PRN Administration NAUSEA AND/OR VOMITING Vital Signs Period Temp Pulse Resp BP Sys/Red Pulse Ox Last 24 Hr 98.5 F-101.9 F 60-82 20-20 113-149/60-68 94-95 nad no jvd rrr s1s2 no mrg cta bl, nl eff aao3 trace le edema bl, no c/c abd nt nd pos bs no jaundice diaphoresis CBC, BMP 06/12/18 06:18 06/10/18 05:30 Stress Echo 08/02: 1:48 min (SOB). 75% MPHR. BP 140 rest, no change exercise. Non-ischemic stress test by EKG. +Atrial flutter with rapid conduction transiently seen during the recovery period, converting with evidence of brief sinus node arrest and junctional escape rhythm. Echo Findings: (1) No echocardiographic evidence of inducible ischemia--SUBMAX HR. (2) Moderate to severe (eccentric) TR seen. (3) Peak TR gradient is at least 52 mmHg. (4) Resting LV intracavitary gradient of 19 mmHg, rising to 86 mmHg on post- exercise images. (No systolic anterior motion of the mitral valve is seen at rest or post- exercise.) Cardiac CTA 03/03: no L to R shunt evidence. normal pulmonary veins. RV probably normal size. 4.1 cm ascending aorta. echo 05/2018: nl lv, mod dilated rv, mod dec rv fcn, sev denise, mild-mod mr, sev tr, rvsp 40-50, mod ar, mild pr cta lungs 05/2018: no pe, +pna ecg: sr, nl intervals, old IRBBB Echo 03/02 ([facility]): nl LV size and syst fxn; EF 83%. no LVH. slight mid-cavitary gradient (8). LVOT gradient 27 resting, up to 33 with valsalva. no mitral TEJA. dd1. hi LAP. nl LA size. mild-mod RVE, normal function. mild-mod DENISE. severe TR. PASP 67. neg bubble study. Echo 04/2016: 1. The left ventricular size is normal. 2. Overall left ventricular systolic function is normal with, an EF between 65 - 70 %. 3. No regional wall motion abnormalities were noted (apex not well seen). 4. The right ventricle is normal in size and function. 5. Left atrium is mildly dilated by volume. 6. The right atrium is markedly enlarged. 7. 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 8. There is mild aortic regurgitation. 9. The tricuspid valve appears structurally normal. 10. Moderate tricuspid regurgitation present; eccentric jet present, which hugs the interatrial septum--severity may be underestimated. 11. There is moderate pulmonary hypertension. 12. The right ventricular systolic pressure, as measured by Doppler, is 61 mmHg (assuming RA pressure of 3 mmHg). 13. [id number] pulmonic regurgitation. Echo 04/30: nl LV/EF; dd1; nl RV; nl LA; mild DENISE; mild AI; eccentric TR at least moderate; nl LAP; nl RAP; mild pHTN (49); prob mild dilated ascending aorta (3.7); IASA (no PFO) Echo 2013 (at PMD): moderate pulm HTN; 56mmHg Renal dopplers 11/30: L stones, no hydro; normal size kidneys; no RA stenosis V/Q 04/2016: low prob for PE; central airway clumping/abnl ventil c/w airways dx and/or parenchymal dz PFTs 06/01: mild obstructive defect; mild decr DLCO; mild BD response a/p: 72 f hx pulm htn, htn, hld, here with sob, cough. sob, cough: - PNA - improving, on abx - pulm, ID following Anemia - s/p 1 unit PRBC - would continue eliquis due high [id number] Paroxysmal atrial fibrillation: - not on av bushra blockers due to h/o junctional rhythm, sinus tessie - on eliquis due to [id number] of 4, would continue htn: -cont current meds hld: -cont statin Pulmonary hypertension, rv dysfunction, sev tr: -chronic condition for patient. she has declined RHC cath/eval by pulm htn specialist numerous times in past. says she will consider it, outpt f/u with Dr. Gutierres cardiac craven stable
--- NOTE | 2018-06-12 11:06 | PN ---
Progress Note (short form) - Note Progress Note: PULMONARY Febrile overnight, did feel chills. Cough still with mild hemoptysis. No diarrhea. No dysuria. Repeat cultures pending. c/o some LLQ tenderness. Vital Signs Period Temp Pulse Resp BP Sys/Red Pulse Ox Last 24 Hr 98.5 F-101.9 F 60-82 20-20 113-149/60-68 94-95 Gen: NAD at rest Heart: RRR Lung: decreased breath sounds at the bases Abd: soft, nontender Ext: no edema CBC, BMP 06/12/18 06:18 06/10/18 05:30 Active Medications Acetaminophen (Tylenol -) 650 mg PO Q4H PRN PRN Reason: FEVER Last Admin: 06/12/18 06:21 Dose: 650 mg Amlodipine Besylate (Norvasc -) 10 mg PO DAILY [facility] Last Admin: 06/12/18 09:11 Dose: 10 mg Apixaban (Eliquis -) 5 mg PO BID [facility] Last Admin: 06/12/18 09:11 Dose: 5 mg Atorvastatin Calcium (Lipitor -) 20 mg PO HS [facility] Last Admin: 06/11/18 21:21 Dose: 20 mg Brimonidine Tartrate (Alphagan 0.15% -) 1 drop OU BID [facility] Last Admin: 06/12/18 09:12 Dose: 1 drop Ferrous Sulfate (Feosol -) 325 mg PO DAILY [facility] Last Admin: 06/12/18 09:11 Dose: 325 mg Guaifenesin (Diabetic Tussin Dm -) 5 ml PO Q6H PRN PRN Reason: COUGH Last Admin: 06/12/18 06:21 Dose: 5 ml Hydralazine HCl (Apresoline -) 100 mg PO DAILY [facility] Last Admin: 06/12/18 09:12 Dose: 100 mg Ampicillin Sodium/Sulbactam (Sodium 1.5 gm/ Sodium Chloride) 100 mls @ 200 mls/ hr IVPB Q6H-IV [facility] Last Admin: 06/12/18 09:09 Dose: 200 mls/hr Losartan Potassium (Cozaar -) 50 mg PO DAILY [facility] Last Admin: 06/12/18 09:11 Dose: 50 mg Ondansetron HCl (Zofran Injection) 8 mg IVPB Q8H PRN PRN Reason: NAUSEA AND/OR VOMITING Last Admin: 06/09/18 10:40 Dose: 8 mg A/P Bilateral Pneumonia improving Hemoptysis improving Pulmonary HTN Asthma Atrial Fibrillation HTN DM ANEMIA - f/u repeat cultures - antibiotics as per ID - continue anticoagulation - inhaled bronchodilators - monitor/quantify hemoptysis - DVT prophylaxis - will need outpt f/u of chest imaging to ensure resolution of infiltrates Problem List - Problems (1) Hemoptysis Code(s): R04.2 - HEMOPTYSIS (2) Pneumonia Code(s): J18.9 - PNEUMONIA, UNSPECIFIED ORGANISM (3) Pulmonary HTN Code(s): I27.20 - PULMONARY HYPERTENSION, UNSPECIFIED (4) Asthma Code(s): J45.909 - UNSPECIFIED ASTHMA, UNCOMPLICATED
[2018-06-12 11:57] LABS: ANISOCYTOSIS 1+; MACROCYTOSIS 1+; OVALOCYTE 1+; PLATELET ESTIMATE NORMAL
--- NOTE | 2018-06-12 18:22 | PN ---
Progress Note (short form) - Note Progress Note: fever and chills some LLQ pain cough unchanged no diarrhea Vital Signs Period Temp Pulse Resp BP Sys/Red Pulse Ox Last 24 Hr 98.5 F-101.9 F 60-82 20-20 113-149/60-68 94-95 cor-rrr murmur unchanged lungs decreased bs at bases abd soft, mild LLQ pain to palpation ext no edema CBC, BMP 06/12/18 06:18 06/10/18 05:30 Microbiology 06/05/18 16:00 Sputum - Expectorated AFB Smear Concentration - Final 06/05/18 16:00 Sputum - Expectorated Direct Acid Fast Bacilli Smear - Final 06/05/18 16:00 Sputum - Expectorated Mycobacterial Culture - Preliminary 06/03/18 15:25 Blood - Peripheral Venous Blood Culture - Final NO GROWTH AFTER 5 DAYS INCUBATION 06/03/18 15:25 Blood - Peripheral Venous Blood Culture - Final NO GROWTH AFTER 5 DAYS INCUBATION 06/04/18 07:56 Sputum - Expectorated AFB Smear Concentration - Final 06/04/18 07:56 Sputum - Expectorated Direct Acid Fast Bacilli Smear - Final 06/04/18 07:56 Sputum - Expectorated Mycobacterial Culture - Preliminary 06/03/18 19:00 Sputum - Expectorated Gram Stain - Final 06/03/18 19:00 Sputum - Expectorated Sputum Culture - Final Yeast Like Organism 06/03/18 10:36 Sputum - Expectorated AFB Smear Concentration - Final 06/03/18 10:36 Sputum - Expectorated Direct Acid Fast Bacilli Smear - Final 06/03/18 10:36 Sputum - Expectorated Mycobacterial Culture - Preliminary 06/03/18 19:00 Sputum - Expectorated LONNIE Preparation - Preliminary 06/03/18 19:00 Sputum - Expectorated Fungal Culture - Preliminary 06/03/18 08:12 Urine For Antigen Detection Legionella Antigen - Final 06/03/18 08:12 Urine For Antigen Detection Streptococcus pneumoniae Antigen (M - Final Current Medications Acetaminophen (Tylenol -) 650 mg PO Q4H PRN PRN Reason: FEVER Last Admin: 06/12/18 16:49 Dose: 650 mg Amlodipine Besylate (Norvasc -) 10 mg PO DAILY [facility] Last Admin: 06/12/18 09:11 Dose: 10 mg Apixaban (Eliquis -) 5 mg PO BID [facility] Last Admin: 06/12/18 09:11 Dose: 5 mg Atorvastatin Calcium (Lipitor -) 20 mg PO HS [facility] Last Admin: 06/11/18 21:21 Dose: 20 mg Brimonidine Tartrate (Alphagan 0.15% -) 1 drop OU BID [facility] Last Admin: 06/12/18 09:12 Dose: 1 drop Ferrous Sulfate (Feosol -) 325 mg PO DAILY [facility] Last Admin: 06/12/18 09:11 Dose: 325 mg Guaifenesin (Diabetic Tussin Dm -) 5 ml PO Q6H PRN PRN Reason: COUGH Last Admin: 06/12/18 06:21 Dose: 5 ml Hydralazine HCl (Apresoline -) 100 mg PO DAILY [facility] Last Admin: 06/12/18 09:12 Dose: 100 mg Ampicillin Sodium/Sulbactam (Sodium 1.5 gm/ Sodium Chloride) 100 mls @ 200 mls/ hr IVPB Q6H-IV [facility] Last Admin: 06/12/18 16:05 Dose: 200 mls/hr Losartan Potassium (Cozaar -) 50 mg PO DAILY [facility] Last Admin: 06/12/18 09:11 Dose: 50 mg Ondansetron HCl (Zofran Injection) 8 mg IVPB Q8H PRN PRN Reason: NAUSEA AND/OR VOMITING Last Admin: 06/09/18 10:40 Dose: 8 mg anca negative hiv negative positive sang cxray read as improved ct scan pending a/p new fevers -repeat blood cultures sent f/u ct scan results vancomycin, cefepime, flagyl pending cultures, ct scan results bilateral upper lobe infiltrates right greater then left- sputum cytology negative times one, sputum afb negative times three, dna probe negative times 2 bronch deferred by pulmonary f/u labs and cultures anemia- ?chronic disease murmur- echo-severe TR with pulmonary HTN +SANG-rheumatology consult noted ? Problem List - Problems (1) Bilateral pulmonary infiltrates on chest x-ray Code(s): R91.8 - OTHER NONSPECIFIC ABNORMAL FINDING OF LUNG FIELD (2) Hemoptysis Code(s): R04.2 - HEMOPTYSIS (3) Anemia Code(s): D64.9 - ANEMIA, UNSPECIFIED
[2018-06-12] MEDS ORDERED: CEFEPIME 2 GM in DEXTROSE 5%-WATER 100 ML IVPB SCH ×2 (18:30→22:00)
--- NOTE | 2018-06-12 20:00 | PN ---
Physical Exam: SUBJECTIVE: Patient seen and examined at bedside this morning. Patient had fever overnight. Patient still has minimal hemoptysis. OBJECTIVE: Vital Signs Period Temp Pulse Resp BP Sys/Red Pulse Ox Last 24 Hr 98.5 F-101.9 F 60-82 20-20 113-149/60-68 94-95 GENERAL: The patient is awake, alert, and fully oriented, on 2L NC HEAD: Normal with no signs of trauma. EYES: PERRLA, EOMI, sclera anicteric, conjunctiva clear. ENT: Ears normal, nares patent, oropharynx clear without exudates, moist mucous membranes. NECK: Trachea midline, full range of motion, supple. LUNGS: Clear to auscultation bilaterally HEART: Regular rate and rhythm, + systolic murmur ABDOMEN: Soft, nontender, nondistended, normoactive bowel sounds. EXTREMITIES: 2+ pulses, warm, well-perfused, no edema. NEUROLOGICAL: Cranial nerves II through XII grossly intact. Normal speech, normal gait. PSYCH: Normal mood, normal affect. SKIN: Warm, dry, normal turgor, no rashes or lesions noted Laboratory Results - last 24 hr 06/09/18 06/12/18 06/12/18 05:30 06:18 06:18 WBC 9.6 Corrected WBC (auto) RBC 2.61 L Hgb 8.3 L Hct 25.0 L MCV 95.8 MCH 31.9 MCHC 33.3 RDW 14.0 Plt Count 319 MPV 8.1 Absolute Neuts (auto) Neutrophils % Neutrophils % (Manual) 89.3 H Band Neutrophils % 1.0 Lymphocytes % Lymphocytes % (Manual) 4.8 L Monocytes % Monocytes % (Manual) 1 L Eosinophils % Eosinophils % (Manual) 2.9 Basophils % Basophils % (Manual) 0.0 Myelocytes % (Man) 0 Promyelocytes % (Man) 0 Blast Cells % (Manual) 0 Nucleated RBC % 5 H Metamyelocytes 0 Hypochromia 1+ Platelet Estimate Normal Platelet Comment Polychromasia 1+ Poikilocytosis 0 Anisocytosis 1+ Microcytosis 0 Macrocytosis 1+ Ovalocytes 1+ PT with INR 17.20 H INR 1.52 H Urine Color Urine Appearance Urine pH Ur Specific Causey Urine Protein Urine Glucose (UA) Urine Ketones Urine Blood Urine Nitrite Urine Bilirubin Urine Urobilinogen Ur Leukocyte Esterase Urine WBC (Auto) Urine RBC (Auto) Ur Epithelial Cells Urine Mucus Beta-(1,3)-D-Glucan 60 06/12/18 06/12/18 06:18 09:15 WBC Cancelled Corrected WBC (auto) Cancelled RBC Cancelled Hgb Cancelled Hct Cancelled MCV Cancelled MCH Cancelled MCHC Cancelled RDW Cancelled Plt Count Cancelled MPV Cancelled Absolute Neuts (auto) Cancelled Neutrophils % Cancelled Neutrophils % (Manual) Band Neutrophils % Lymphocytes % Cancelled Lymphocytes % (Manual) Monocytes % Cancelled Monocytes % (Manual) Eosinophils % Cancelled Eosinophils % (Manual) Basophils % Cancelled Basophils % (Manual) Myelocytes % (Man) Promyelocytes % (Man) Blast Cells % (Manual) Nucleated RBC % Cancelled Metamyelocytes Hypochromia Platelet Estimate Cancelled Platelet Comment Cancelled Polychromasia Poikilocytosis Anisocytosis Microcytosis Macrocytosis Ovalocytes PT with INR INR Urine Color Yellow Urine Appearance Clear Urine pH 5.0 Ur Specific Causey 1.013 Urine Protein 1+ H Urine Glucose (UA) Negative Urine Ketones Negative Urine Blood 3+ H Urine Nitrite Negative Urine Bilirubin Negative Urine Urobilinogen Negative Ur Leukocyte Esterase Trace Urine WBC (Auto) 9 Urine RBC (Auto) 48 Ur Epithelial Cells Rare Urine Mucus Rare Beta-(1,3)-D-Glucan Active Medications Generic Name Dose Route Start Last Admin Trade Name Toribioq PRN Reason Stop Dose Admin Acetaminophen 650 mg 06/10/18 11:43 06/12/18 16:49 Tylenol - PO 650 mg Q4H PRN Administration FEVER Amlodipine Besylate 10 mg 06/03/18 10:00 06/12/18 09:11 Norvasc - PO 10 mg DAILY ANITA Administration Apixaban 5 mg 06/02/18 22:00 06/12/18 09:11 Eliquis - PO 5 mg BID ANITA Administration Atorvastatin Calcium 20 mg 06/02/18 22:00 06/11/18 21:21 Lipitor - PO 20 mg HS ANITA Administration Brimonidine Tartrate 1 drop 06/02/18 22:00 06/12/18 09:12 Alphagan 0.15% - OU 1 drop BID ANITA Administration Ferrous Sulfate 325 mg 06/06/18 11:30 06/12/18 09:11 Feosol - PO 325 mg DAILY ANITA Administration Guaifenesin 5 ml 06/08/18 12:49 06/12/18 06:21 Diabetic Tussin Dm - PO 5 ml Q6H PRN Administration COUGH Hydralazine HCl 100 mg 06/03/18 10:00 06/12/18 09:12 Apresoline - PO 100 mg DAILY ANITA Administration Vancomycin HCl 1,000 mg/ 250 mls @ 200 mls/hr 06/12/18 18:30 Dextrose IVPB Q24H ANITA Protocol Metronidazole 500 mg in 100 mls @ 100 mls/hr 06/13/18 02:00 Flagyl 500mg Premixed Ivpb - IVPB Q8H-IV ANITA Cefepime HCl 2 gm/ Dextrose 100 mls @ 100 mls/hr 06/12/18 18:30 IVPB Q12H ANITA Protocol Losartan Potassium 50 mg 06/06/18 10:00 06/12/18 09:11 Cozaar - PO 50 mg DAILY ANITA Administration Ondansetron HCl 8 mg 06/09/18 10:08 06/09/18 10:40 Zofran Injection IVPB 8 mg Q8H PRN Administration NAUSEA AND/OR VOMITING Imaging Chest/Thorax CTA No evidence of pulmonary artery emboli. Bilateral patchy infiltrates with consolidates within the right upper lobe which appear unchanged form prior imaging. Chest CT without contrast In comparison to prior studies note is made of interval development of extensive bilateral upper lobe alveolar infiltrates, right more than left. Smaller bilateral lower lobe infiltrates are also seen. Cardiomegaly. Probably dilatation of the main pulmonary artery suggestive of increased pulmonary arterial pressure. Chest X-ray Extremely abnormal CXR with new pulmonary findings and persistently enlarged heart. Echo Clinical correlation is recommended. Right ventricular systolic pressure is elevated at 40-50 mmHg. There is severe tricuspid regurgitation. The right ventricle is moderately dilated. The right ventricular systolic function is moderately reduced. The right atrium is severely dilated. E/A reversal consistent with but not diagnostic of poor LV compliance. The left ventricular wall motion is normal. The left ventricular EF is normal. The left ventricular size, thickness, and function are normal. Chest X-ray (06/07/18) - Bilateral upper lobe predominant pneumonia Chest X-ray (06/08/18) - Decreased bilateral upper lobe consolidative opacities compatible with improving pneumonia. Chest X-ray (06/11/18) - Resolving bilateral upper lobe consolidation. No pleural effusion or pneumothorax is seen. Unchanged contour of the cardiac silhouette. Microbiology 06/03/18 15:25 Blood - Peripheral Venous Blood Culture - Preliminary NO GROWTH OBTAINED AFTER 48 HOURS, INCUBATION TO CONTINUE FOR 3 DAYS. 06/03/18 15:25 Blood - Peripheral Venous Blood Culture - Preliminary NO GROWTH OBTAINED AFTER 48 HOURS, INCUBATION TO CONTINUE FOR 3 DAYS. 06/03/18 19:00 Sputum - Expectorated Gram Stain - Final 06/03/18 19:00 Sputum - Expectorated Sputum Culture - Final Yeast Like Organism 06/03/18 10:36 Sputum - Expectorated AFB Smear Concentration - Final 06/03/18 10:36 Sputum - Expectorated Direct Acid Fast Bacilli Smear - Final 06/03/18 10:36 Sputum - Expectorated Mycobacterial Culture - Preliminary 06/04/18 07:56 Sputum - Expectorated AFB Smear Concentration - Preliminary 06/04/18 07:56 Sputum - Expectorated Direct Acid Fast Bacilli Smear - Final 06/04/18 07:56 Sputum - Expectorated Mycobacterial Culture - Preliminary 06/03/18 19:00 Sputum - Expectorated LONNIE Preparation - Preliminary 06/03/18 19:00 Sputum - Expectorated Fungal Culture - Preliminary 06/03/18 08:12 Urine For Antigen Detection Legionella Antigen - Final 06/03/18 08:12 Urine For Antigen Detection Streptococcus pneumoniae Antigen M - Final ASSESSMENT/PLAN: Patient is a 72 year old female who presented with worsening dyspnea on exertion and hemoptysis for about 3 weeks. #Hemoptysis and PANIAGUA: likely 2/2 CAP -New onset fever -may be 2/2 reactive inflammation? -Blood Cx, UA/Urine Cx ordered. -CXR - resolving bilateral upper lobe consolidation. -AFB smear negative, AFB Sputum cultures negative x3. -Quantiferon TB test: Indeterminate. -Fungal culture - negative -c-ANCA, PR3, p-ANCA, MPO Ab negative. -ALEXIA positive. -Rheumatology (Dr. Malave) consulted. Recommendations appreciated. -Likely 2/2 to pulmonary HTN and PNA; can not totally rule out SLE -anti-histone, complement, anti-dsDNA ordered. -Pulmonary (Dr. Almeida) consulted. Recommendations appreciated: -Duoneb PRN -Continue antibiotics. -Monitor/quantify hemoptysis. -Bronchoscopy deferred as patient is clinically and radiographically improving. -ID (Dr. Mckeon) consulted. Recommendations appreciated. -Unasyn day 6. -Robitussin PRN for cough. #Hematuria on UA -Blood 3+, WBC 48 -CT scan of abdomen and pelvis done -- awaiting official read #Normocytic Anemia -Possibly secondary to lung pathology and inflammation. -Hgb today 8.3 -Stool guaiac -negative -Iron 33, TIBC 218, Iron saturation 15, Ferritin 68.4 -Retic ct - 2.56 -Ferrous sulfate started. -Continue Eliquis as patient is high CHADSVaSC risk score. -Will monitor H/H. Transfuse as necessary. #Pulmonary Hypertension -Echo -RV systolic pressure elevated at 40-50 mmHg. Severe TR. RV is moderately dilated. RV systolic function is moderately reduced. RA is severe dilated. -Cardiology (Dr. Gutierres) consulted. Recommendations appreciated: -Chronic condition for patient. She has declined right heart cath/eval by pulmonary HTN specialist numerous times in the past. -Says she will consider it as outpatient follow-up. #Hyponatremia: resolved -Likely SIADH from lung pathology and possible hyperglycemia #Hypokalemia: resolved #NIDDMII -Patient was previously on Januvia and Metformin. -Reports that her primary care discontinued all her medications and is currently just on diet and exercise. -A1C - 5.6 -BGM and ISS ACHS #HTN -Continue home medication with Hydralazine 100mg daily, Amlodipine 10mg daily, and Increase Losartan to 50mg BID -Continue to monitor BP #HLD -Continue Lipitor 20mg HS -Lipid panel ordered #Atrial Fibrillation -Rate controlled -Continue Eliquis 5mg BID. CHADSVaSC risk score 4. #F/E/N -Not on any standing fluids. -Encourage increased oral fluid intake. -Electrolytes wnl. -Sodium restricted/Diabetic diet. #Prophylaxis -Patient on Eliquis #Disposition -Full code -Discontinue isolation. Visit type - Emergency Visit Emergency Visit: Yes ED Registration Date: 06/02/18 Care time: The patient presented to the Emergency Department on the above date and was hospitalized for further evaluation of their emergent condition. - New Patient This patient is new to me today: Yes - Critical Care Critical Care patient: No
[2018-06-12] MEDS: CEFEPIME 2 GM in DEXTROSE 5%-WATER 100 ML IVPB SCH (20:55)
[2018-06-12] MEDS: ATORVASTATIN CA 20 MG TABLET (FP) PO SCH (21:44)
[2018-06-12] MEDS: VANCOMYCIN 1,000 MG in DEXTROSE 5%-WATER - 250 ML IVPB SCH (21:45)
[2018-06-13] MEDS ORDERED: PT OWN MED DRAWER 7, Y5N ONE ×4 (06:10→19:58)
[2018-06-13] MEDS: CEFEPIME 2 GM in DEXTROSE 5%-WATER 100 ML IVPB SCH ×2 (07:00→17:43)
[2018-06-13] MEDS: ACETAMINOPHEN 325 MG TABLET (FP) PO PRN ×2 (07:00→19:00)
[2018-06-13 07:31] LABS: BASO % 0.6 % (0-2.0); EOS % 1.2 % (0-4.5); HEMATOCRIT 24.4 % (32.4-45.2); LYMPH % 8.3 % (8-40); MCH 31.6 pg (25.7-33.7); MCHC 32.8 g/dl (32.0-36.0); MEAN CELL VOLUME 96.4 fl (80-96); MEAN PLT VOLUME 8.3 fl (7.5-11.1); MONO % 5.8 % (3.8-10.2); NEUT % 84.1 % (42.8-82.8); PLATELET COUNT 298 K/MM3 (134-434); RBC 2.53 M/mm3 (3.60-5.2); RDW 13.8 % (11.6-15.6); WHITE BLOOD COUNT 9.8 K/mm3 (4.0-10.0)
[2018-06-13 08:27] LABS: ALBUMIN 2.6 g/dl (3.4-5.0); ALK PHOS 78 U/L (45-117); ANION GAP 7 MMOL/L (8-16); BILIRUBIN,TOTAL 0.8 mg/dL (0.2-1); BLOOD UREA NITROGEN 8 mg/dL (7-18); CALCIUM 9.1 mg/dL (8.5-10.1); CHLORIDE 104 mmol/L (98-107); CO2 30 mmol/L (21-32); CREATININE 0.7 mg/dL (0.55-1.3); GLUCOSE,RANDOM 98 mg/dL (74-106); PHOSPHOROUS 2.3 mg/dL (2.5-4.9); POTASSIUM 4.7 mmol/L (3.5-5.1); SGOT/AST 28 U/L (15-37); SGPT/ALT 21 U/L (13-61); SODIUM 141 mmol/L (136-145); TOT PROT 6.5 g/dl (6.4-8.2)
[2018-06-13] MEDS: hydrALAZINE HCL 50 MG TABLET (FP) PO SCH (11:22)
[2018-06-13] MEDS: APIXABAN 5 MG TABLET PO SCH ×2 (11:22→22:09)
--- NOTE | 2018-06-13 11:22 | PN ---
Progress Note (short form) - Note Progress Note: s: no cp palps dizzy. sob better. cough better Current Medications Generic Name Dose Route Start Last Admin Trade Name Freq PRN Reason Stop Dose Admin Acetaminophen 650 mg 06/10/18 11:43 06/13/18 07:00 Tylenol - PO 650 mg Q4H PRN Administration FEVER Amlodipine Besylate 10 mg 06/03/18 10:00 06/12/18 09:11 Norvasc - PO 10 mg DAILY ANITA Administration Apixaban 5 mg 06/02/18 22:00 06/12/18 21:44 Eliquis - PO 5 mg BID ANITA Administration Atorvastatin Calcium 20 mg 06/02/18 22:00 06/12/18 21:44 Lipitor - PO 20 mg HS ANITA Administration Brimonidine Tartrate 1 drop 06/02/18 22:00 06/12/18 21:45 Alphagan 0.15% - OU 1 drop BID ANITA Administration Ferrous Sulfate 325 mg 06/06/18 11:30 06/12/18 09:11 Feosol - PO 325 mg DAILY ANITA Administration Guaifenesin 5 ml 06/08/18 12:49 06/12/18 23:23 Diabetic Tussin Dm - PO 5 ml Q6H PRN Administration COUGH Hydralazine HCl 100 mg 06/03/18 10:00 06/12/18 09:12 Apresoline - PO 100 mg DAILY ANITA Administration Vancomycin HCl 1,000 mg/ 250 mls @ 200 mls/hr 06/12/18 18:30 06/12/18 21:45 Dextrose IVPB 200 mls/hr Q24H ANITA Administration Protocol Metronidazole 500 mg in 100 mls @ 100 mls/hr 06/13/18 02:00 06/13/18 01:30 Flagyl 500mg Premixed Ivpb - IVPB 100 mls/hr Q8H-IV ANITA Administration Cefepime HCl 2 gm/ Dextrose 100 mls @ 100 mls/hr 06/12/18 18:30 06/13/18 07: 00 IVPB 100 mls/hr Q12H ANITA Administration Protocol Losartan Potassium 50 mg 06/06/18 10:00 06/12/18 09:11 Cozaar - PO 50 mg DAILY ANITA Administration Ondansetron HCl 8 mg 06/09/18 10:08 06/09/18 10:40 Zofran Injection IVPB 8 mg Q8H PRN Administration NAUSEA AND/OR VOMITING Vital Signs Period Temp Pulse Resp BP Sys/Red Pulse Ox Last 24 Hr 98.4 F-101.1 F 72-99 18-21 122-162/65-89 98 nad no jvd rrr s1s2 no mrg cta bl, nl eff aao3 trace le edema bl, no c/c abd nt nd pos bs no jaundice diaphoresis CBC, BMP 06/13/18 06:00 06/13/18 06:00 Stress Echo 08/02: 1:48 min (SOB). 75% MPHR. BP 140 rest, no change exercise. Non-ischemic stress test by EKG. +Atrial flutter with rapid conduction transiently seen during the recovery period, converting with evidence of brief sinus node arrest and junctional escape rhythm. Echo Findings: (1) No echocardiographic evidence of inducible ischemia--SUBMAX HR. (2) Moderate to severe (eccentric) TR seen. (3) Peak TR gradient is at least 52 mmHg. (4) Resting LV intracavitary gradient of 19 mmHg, rising to 86 mmHg on post- exercise images. (No systolic anterior motion of the mitral valve is seen at rest or post- exercise.) Cardiac CTA 03/03: no L to R shunt evidence. normal pulmonary veins. RV probably normal size. 4.1 cm ascending aorta. echo 05/2018: nl lv, mod dilated rv, mod dec rv fcn, sev denise, mild-mod mr, sev tr, rvsp 40-50, mod ar, mild pr cta lungs 05/2018: no pe, +pna ecg: sr, nl intervals, old IRBBB Echo 03/02 ([facility]): nl LV size and syst fxn; EF 83%. no LVH. slight mid-cavitary gradient (8). LVOT gradient 27 resting, up to 33 with valsalva. no mitral TEJA. dd1. hi LAP. nl LA size. mild-mod RVE, normal function. mild-mod DENISE. severe TR. PASP 67. neg bubble study. Echo 04/2016: 1. The left ventricular size is normal. 2. Overall left ventricular systolic function is normal with, an EF between 65 - 70 %. 3. No regional wall motion abnormalities were noted (apex not well seen). 4. The right ventricle is normal in size and function. 5. Left atrium is mildly dilated by volume. 6. The right atrium is markedly enlarged. 7. 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 8. There is mild aortic regurgitation. 9. The tricuspid valve appears structurally normal. 10. Moderate tricuspid regurgitation present; eccentric jet present, which hugs the interatrial septum--severity may be underestimated. 11. There is moderate pulmonary hypertension. 12. The right ventricular systolic pressure, as measured by Doppler, is 61 mmHg (assuming RA pressure of 3 mmHg). 13. [id number] pulmonic regurgitation. Echo 04/30: nl LV/EF; dd1; nl RV; nl LA; mild DENISE; mild AI; eccentric TR at least moderate; nl LAP; nl RAP; mild pHTN (49); prob mild dilated ascending aorta (3.7); IASA (no PFO) Echo 2013 (at [facility]D): moderate pulm HTN; 56mmHg Renal dopplers 11/30: L stones, no hydro; normal size kidneys; no RA stenosis V/Q 04/2016: low prob for PE; central airway clumping/abnl ventil c/w airways dx and/or parenchymal dz PFTs 06/01: mild obstructive defect; mild decr DLCO; mild BD response a/p: 72 f hx pulm htn, htn, hld, here with sob, cough. sob, cough: - PNA - sxs improving, on abx but now with new fevers, infectious w/u ongoing - pulm, ID following Anemia - s/p 1 unit PRBC - would continue eliquis due high [id number] Paroxysmal atrial fibrillation: - not on av bushra blockers due to h/o junctional rhythm, sinus tessie - on eliquis due to [id number] of 4, would continue htn: -cont current meds hld: -cont statin Pulmonary hypertension, rv dysfunction, sev tr: -chronic condition for patient. she has declined RHC cath/eval by pulm htn specialist numerous times in past. says she will consider it, outpt f/u with Dr. Gutierres cardiac craven stable
[2018-06-13] MEDS: FERROUS SO4 325 MG TABLET (FP) PO SCH (11:23)
[2018-06-13] MEDS: LOSARTAN POTASSIUM 50 MG TABLET (FP) PO SCH (11:23)
[2018-06-13] MEDS: BRIMONIDINE TARTRATE 0.15% OPHTHALMIC 5 ML BOTTLE OU SCH ×2 (11:23→22:10)
[2018-06-13] MEDS: amLODIPine BESYLATE 10 MG TABLET (FP) PO SCH (11:23)
--- NOTE | 2018-06-13 12:04 | PN ---
Progress Note (short form) - Note Progress Note: PULMONARY No further hemoptysis VSS Gen: NAD at rest Heart: RRR Lung: decreased breath sounds at the bases Abd: soft, nontender Ext: no edema Active Medications noted A/P Bilateral Pneumonia improving Hemoptysis resolved Pulmonary HTN Asthma Atrial Fibrillation HTN DM ANEMIA - cultures no growth thus far - antibiotics as per ID - continue anticoagulation - inhaled bronchodilators - monitor/quantify hemoptysis - DVT prophylaxis - will need outpt f/u of chest imaging to ensure resolution of infiltrates Alfie MANCINI MD
[2018-06-13 14:19] LABS: ASPERGIL AG 0.09 Index (0.00-0.49)
[2018-06-13 14:19] LABS: RNP ANTIBODIES <0.2 AI (0.0-0.9)
--- NOTE | 2018-06-13 14:33 | PN ---
Progress Note (short form) - Note Progress Note: fever and chills abdominal pain resolved no diarrhea Vital Signs Period Temp Pulse Resp BP Sys/Red Pulse Ox Last 24 Hr 98.4 F-101.1 F 72-99 18-21 122-162/65-89 96-98 cor-rrr murmur unchanged lungs decreased bs at bases abd soft,nt ext no edema CBC, BMP 06/13/18 06:00 06/13/18 06:00 Microbiology 06/12/18 09:15 Urine - Urine Clean Catch Urine Culture - Final NO GROWTH OBTAINED 06/12/18 07:45 Blood - Peripheral Venous Blood Culture - Preliminary NO GROWTH OBTAINED AFTER 24 HOURS, INCUBATION TO CONTINUE FOR 4 DAYS. 06/12/18 07:35 Blood - Peripheral Venous Blood Culture - Preliminary NO GROWTH OBTAINED AFTER 24 HOURS, INCUBATION TO CONTINUE FOR 4 DAYS. 06/05/18 16:00 Sputum - Expectorated AFB Smear Concentration - Final 06/05/18 16:00 Sputum - Expectorated Direct Acid Fast Bacilli Smear - Final 06/05/18 16:00 Sputum - Expectorated Mycobacterial Culture - Preliminary 06/03/18 15:25 Blood - Peripheral Venous Blood Culture - Final NO GROWTH AFTER 5 DAYS INCUBATION 06/03/18 15:25 Blood - Peripheral Venous Blood Culture - Final NO GROWTH AFTER 5 DAYS INCUBATION 06/04/18 07:56 Sputum - Expectorated AFB Smear Concentration - Final 06/04/18 07:56 Sputum - Expectorated Direct Acid Fast Bacilli Smear - Final 06/04/18 07:56 Sputum - Expectorated Mycobacterial Culture - Preliminary 06/03/18 19:00 Sputum - Expectorated Gram Stain - Final 06/03/18 19:00 Sputum - Expectorated Sputum Culture - Final Yeast Like Organism 06/03/18 10:36 Sputum - Expectorated AFB Smear Concentration - Final 06/03/18 10:36 Sputum - Expectorated Direct Acid Fast Bacilli Smear - Final 06/03/18 10:36 Sputum - Expectorated Mycobacterial Culture - Preliminary 06/03/18 19:00 Sputum - Expectorated LONNIE Preparation - Preliminary 06/03/18 19:00 Sputum - Expectorated Fungal Culture - Preliminary 06/03/18 08:12 Urine For Antigen Detection Legionella Antigen - Final 06/03/18 08:12 Urine For Antigen Detection Streptococcus pneumoniae Antigen (M - Final anca negative hiv negative positive sang cxray read as improved ct scan-bases of lungs improved no bowel pathology a/p new fevers -repeat blood cultures sent vanco/cefepime d/c zosyn d/c vanco in am if blood cultures are negative repeat esr/crp bilateral upper lobe infiltrates right greater then left- sputum cytology negative times one, sputum afb negative times three, dna probe negative times 2 bronch deferred by pulmonary f/u labs and cultures anemia- ?chronic disease murmur- echo-severe TR with pulmonary HTN +SANG-rheumatology consult noted ? Problem List - Problems (1) Bilateral pulmonary infiltrates on chest x-ray Code(s): R91.8 - OTHER NONSPECIFIC ABNORMAL FINDING OF LUNG FIELD (2) Hemoptysis Code(s): R04.2 - HEMOPTYSIS (3) Anemia Code(s): D64.9 - ANEMIA, UNSPECIFIED
--- NOTE | 2018-06-13 17:49 | PN ---
Teaching Attending Note Name of Resident: Elsy Johnston ATTENDING PHYSICIAN STATEMENT I saw and evaluated the patient. I reviewed the resident's note and discussed the case with the resident. I agree with the resident's findings and plan as documented with exceptions below. SUBJECTIVE: Patient seen and examined. Improved hemoptysis. no new cough, dyspnea, abdominal or urinary symptoms. OBJECTIVE: Vital Signs Period Temp Pulse Resp BP Sys/Red Pulse Ox Last 24 Hr 98.4 F-100.1 F 72-99 18-21 122-162/65-89 96-98 Intake & Output 06/10/18 06/11/18 06/12/18 06/13/18 23:59 23:59 23:59 23:59 Intake Total 1630 1450 1850 400 Balance 1630 1450 1850 400 General: sitting in chair in no acute distress Chest: improved bilateral rales, positive bowel sounds Extremities: no edema Abdomen:soft, NT throughout, ND, positive bowel sounds Active Medications Acetaminophen (Tylenol -) 650 mg PO Q4H PRN PRN Reason: FEVER Last Admin: 06/13/18 07:00 Dose: 650 mg Amlodipine Besylate (Norvasc -) 10 mg PO DAILY [facility] Last Admin: 06/13/18 11:23 Dose: 10 mg Apixaban (Eliquis -) 5 mg PO BID [facility] Last Admin: 06/13/18 11:22 Dose: 5 mg Atorvastatin Calcium (Lipitor -) 20 mg PO HS [facility] Last Admin: 06/12/18 21:44 Dose: 20 mg Brimonidine Tartrate (Alphagan 0.15% -) 1 drop OU BID [facility] Last Admin: 06/13/18 11:23 Dose: 1 drop Ferrous Sulfate (Feosol -) 325 mg PO DAILY [facility] Last Admin: 06/13/18 11:23 Dose: 325 mg Guaifenesin (Diabetic Tussin Dm -) 5 ml PO Q6H PRN PRN Reason: COUGH Last Admin: 06/12/18 23:23 Dose: 5 ml Hydralazine HCl (Apresoline -) 100 mg PO DAILY [facility] Last Admin: 06/13/18 11:22 Dose: 100 mg Vancomycin HCl 1,000 mg/ (Dextrose) 250 mls @ 200 mls/hr IVPB Q24H [facility]; Protocol Last Admin: 06/12/18 21:45 Dose: 200 mls/hr Cefepime HCl 2 gm/ Dextrose 100 mls @ 100 mls/hr IVPB Q12H [facility]; Protocol Last Admin: 06/13/18 17:43 Dose: 100 mls/hr Losartan Potassium (Cozaar -) 50 mg PO DAILY [facility] Last Admin: 06/13/18 11:23 Dose: 50 mg Ondansetron HCl (Zofran Injection) 8 mg IVPB Q8H PRN PRN Reason: NAUSEA AND/OR VOMITING Last Admin: 06/09/18 10:40 Dose: 8 mg Laboratory Results - last 24 hr 06/09/18 06/10/18 06/12/18 05:30 08:43 06:18 WBC RBC Hgb Hct MCV MCH MCHC RDW Plt Count MPV Absolute Neuts (auto) Neutrophils % Lymphocytes % Monocytes % Eosinophils % Basophils % Nucleated RBC % Sodium Potassium Chloride Carbon Dioxide Anion Gap BUN Creatinine Creat Clearance w eGFR Random Glucose Calcium Phosphorus Magnesium Total Bilirubin AST ALT Alkaline Phosphatase Total Protein Albumin Sm (Holt) Antibody <0.2 DRY KILN FEEDER Antibody <0.2 Double Strand DNA Ab <1 Aspergillus Antibody 0.09 Blood Type B POSITIVE Antibody Screen Negative Crossmatch See Detail 06/13/18 06/13/18 06:00 06:00 WBC 9.8 RBC 2.53 L Hgb 8.0 L Hct 24.4 L MCV 96.4 H MCH 31.6 MCHC 32.8 RDW 13.8 Plt Count 298 MPV 8.3 Absolute Neuts (auto) 8.2 H Neutrophils % 84.1 H Lymphocytes % 8.3 Monocytes % 5.8 Eosinophils % 1.2 Basophils % 0.6 Nucleated RBC % 0 Sodium 141 Potassium 4.7 Chloride 104 Carbon Dioxide 30 Anion Gap 7 L BUN 8 Creatinine 0.7 Creat Clearance w eGFR > 60 Random Glucose 98 Calcium 9.1 Phosphorus 2.3 L Magnesium 2.0 Total Bilirubin 0.8 AST 28 ALT 21 Alkaline Phosphatase 78 Total Protein 6.5 Albumin 2.6 L Sm (Holt) Antibody DRY KILN FEEDER Antibody Double Strand DNA Ab Aspergillus Antibody Blood Type Antibody Screen Crossmatch Microbiology 06/12/18 09:15 Urine - Urine Clean Catch Urine Culture - Final NO GROWTH OBTAINED 06/12/18 07:45 Blood - Peripheral Venous Blood Culture - Preliminary NO GROWTH OBTAINED AFTER 24 HOURS, INCUBATION TO CONTINUE FOR 4 DAYS. 06/12/18 07:35 Blood - Peripheral Venous Blood Culture - Preliminary NO GROWTH OBTAINED AFTER 24 HOURS, INCUBATION TO CONTINUE FOR 4 DAYS. 06/05/18 16:00 Sputum - Expectorated AFB Smear Concentration - Final 06/05/18 16:00 Sputum - Expectorated Direct Acid Fast Bacilli Smear - Final 06/05/18 16:00 Sputum - Expectorated Mycobacterial Culture - Preliminary 06/03/18 15:25 Blood - Peripheral Venous Blood Culture - Final NO GROWTH AFTER 5 DAYS INCUBATION 06/03/18 15:25 Blood - Peripheral Venous Blood Culture - Final NO GROWTH AFTER 5 DAYS INCUBATION 06/04/18 07:56 Sputum - Expectorated AFB Smear Concentration - Final 06/04/18 07:56 Sputum - Expectorated Direct Acid Fast Bacilli Smear - Final 06/04/18 07:56 Sputum - Expectorated Mycobacterial Culture - Preliminary 06/03/18 19:00 Sputum - Expectorated Gram Stain - Final 06/03/18 19:00 Sputum - Expectorated Sputum Culture - Final Yeast Like Organism 06/03/18 10:36 Sputum - Expectorated AFB Smear Concentration - Final 06/03/18 10:36 Sputum - Expectorated Direct Acid Fast Bacilli Smear - Final 06/03/18 10:36 Sputum - Expectorated Mycobacterial Culture - Preliminary 06/03/18 19:00 Sputum - Expectorated LONNIE Preparation - Preliminary 06/03/18 19:00 Sputum - Expectorated Fungal Culture - Preliminary 06/03/18 08:12 Urine For Antigen Detection Legionella Antigen - Final 06/03/18 08:12 Urine For Antigen Detection Streptococcus pneumoniae Antigen (M - Final CT A/P results reviewed. ASSESSMENT AND PLAN: 72yo F wtih PMH DM which is diet controlled, HTN, AFib on eliquis, asthma presented to the ER with hemoptysis and cough -Hemoptysis -Acute respiratory distress -Multifocal PNA, r/o vasculitis, TB/fungal illness -Hyponatremia -Hypokalemia -Anemia, iron deficiency/chronic blood loss +/- anemia of chronic disease -Paroxysmal Atrial fibrillation on eliquis -Diet controlled DM, A1c 5.6 -HTN Plan: Recurrent fevers. Repeat CXR with resolving consolidations. Blood cx sent. U/a noted, some hematuria. CT A/p non contrast results noted, mild thickening rectosigmoid, but no tenderness or GI symptoms. ID/Pulmonary input appreciated ?inflammatory process. ALEXIA screen positive. Rheumatology input noted. Follow up anti-histone, complement, anti-DNA ds, anti- CHELSEA. h/h noted, s/p venofer. s/p 1 unit PRBC 06/10 with appropriate response. Hemoptysis improved. Monitor CBC Continue eliquis with caution. Sputum cytology neg for malignancy sputum afb negative times 3 with 2 mtb probes negative Off afb isolation Replete lytes prn. HR controlled, not on AVN blockers given h/o junctional rhythm/Sinus bradycardia on the same. ISS,diabetic diet Continue losartan/hydralazine Dispo hold d/c planning given recurrent fevers. DVTPPX eliquis, monitor for now PT eval, Home oxygen needs assessment. Plan discussed with patient in detail, all questions answered.
--- NOTE | 2018-06-13 17:52 | PN ---
Physical Exam: SUBJECTIVE: Patient seen and examined at bedside this morning. Patient had low- grade fevers overnight. Patient has minimal (blood-tinged sputum) hemoptysis. Patient denies chest pain, palpitations, abdominal pain, diarrhea, constipation , dysuria. OBJECTIVE: Vital Signs Period Temp Pulse Resp BP Sys/Red Pulse Ox Last 24 Hr 98.4 F-100.1 F 72-99 18-21 122-162/65-89 96-98 GENERAL: The patient is awake, alert, and fully oriented, on 2L NC HEAD: Normal with no signs of trauma. EYES: PERRLA, EOMI, sclera anicteric, conjunctiva clear. ENT: Ears normal, nares patent, oropharynx clear without exudates, moist mucous membranes. NECK: Trachea midline, full range of motion, supple. LUNGS: Clear to auscultation bilaterally HEART: Regular rate and rhythm, + systolic murmur ABDOMEN: Soft, +tenderness on deep palpation at LUQ, nondistended, normoactive bowel sounds. EXTREMITIES: 2+ pulses, warm, well-perfused, no edema. NEUROLOGICAL: Cranial nerves II through XII grossly intact. Normal speech, normal gait. PSYCH: Normal mood, normal affect. SKIN: Warm, dry, normal turgor, no rashes or lesions noted Laboratory Results - last 24 hr 06/09/18 06/10/18 06/12/18 05:30 08:43 06:18 WBC RBC Hgb Hct MCV MCH MCHC RDW Plt Count MPV Absolute Neuts (auto) Neutrophils % Lymphocytes % Monocytes % Eosinophils % Basophils % Nucleated RBC % Sodium Potassium Chloride Carbon Dioxide Anion Gap BUN Creatinine Creat Clearance w eGFR Random Glucose Calcium Phosphorus Magnesium Total Bilirubin AST ALT Alkaline Phosphatase Total Protein Albumin Sm (Holt) Antibody <0.2 STRAIGHT RULING MACHINE OPERATOR Antibody <0.2 Double Strand DNA Ab <1 Aspergillus Antibody 0.09 Blood Type B POSITIVE Antibody Screen Negative Crossmatch See Detail 06/13/18 06/13/18 06:00 06:00 WBC 9.8 RBC 2.53 L Hgb 8.0 L Hct 24.4 L MCV 96.4 H MCH 31.6 MCHC 32.8 RDW 13.8 Plt Count 298 MPV 8.3 Absolute Neuts (auto) 8.2 H Neutrophils % 84.1 H Lymphocytes % 8.3 Monocytes % 5.8 Eosinophils % 1.2 Basophils % 0.6 Nucleated RBC % 0 Sodium 141 Potassium 4.7 Chloride 104 Carbon Dioxide 30 Anion Gap 7 L BUN 8 Creatinine 0.7 Creat Clearance w eGFR > 60 Random Glucose 98 Calcium 9.1 Phosphorus 2.3 L Magnesium 2.0 Total Bilirubin 0.8 AST 28 ALT 21 Alkaline Phosphatase 78 Total Protein 6.5 Albumin 2.6 L Sm (Holt) Antibody STRAIGHT RULING MACHINE OPERATOR Antibody Double Strand DNA Ab Aspergillus Antibody Blood Type Antibody Screen Crossmatch Active Medications Generic Name Dose Route Start Last Admin Trade Name Freq PRN Reason Stop Dose Admin Acetaminophen 650 mg 06/10/18 11:43 06/13/18 07:00 Tylenol - PO 650 mg Q4H PRN Administration FEVER Amlodipine Besylate 10 mg 06/03/18 10:00 06/13/18 11:23 Norvasc - PO 10 mg DAILY [facility] Administration Apixaban 5 mg 06/02/18 22:00 06/13/18 11:22 Eliquis - PO 5 mg BID [facility] Administration Atorvastatin Calcium 20 mg 06/02/18 22:00 06/12/18 21:44 Lipitor - PO 20 mg HS [facility] Administration Brimonidine Tartrate 1 drop 06/02/18 22:00 06/13/18 11:23 Alphagan 0.15% - OU 1 drop BID [facility] Administration Ferrous Sulfate 325 mg 06/06/18 11:30 06/13/18 11:23 Feosol - PO 325 mg DAILY [facility] Administration Guaifenesin 5 ml 06/08/18 12:49 06/12/18 23:23 Diabetic Tussin Dm - PO 5 ml Q6H PRN Administration COUGH Hydralazine HCl 100 mg 06/03/18 10:00 06/13/18 11:22 Apresoline - PO 100 mg DAILY [facility] Administration Vancomycin HCl 1,000 mg/ 250 mls @ 200 mls/hr 06/12/18 18:30 06/12/18 21:45 Dextrose IVPB 200 mls/hr Q24H [facility] Administration Protocol Cefepime HCl 2 gm/ Dextrose 100 mls @ 100 mls/hr 06/12/18 18:30 06/13/18 17: 43 IVPB 100 mls/hr Q12H [facility] Administration Protocol Losartan Potassium 50 mg 06/06/18 10:00 06/13/18 11:23 Cozaar - PO 50 mg DAILY [facility] Administration Ondansetron HCl 8 mg 06/09/18 10:08 06/09/18 10:40 Zofran Injection IVPB 8 mg Q8H PRN Administration NAUSEA AND/OR VOMITING Imaging Chest/Thorax CTA No evidence of pulmonary artery emboli. Bilateral patchy infiltrates with consolidates within the right upper lobe which appear unchanged form prior imaging. Chest CT without contrast In comparison to prior studies note is made of interval development of extensive bilateral upper lobe alveolar infiltrates, right more than left. Smaller bilateral lower lobe infiltrates are also seen. Cardiomegaly. Probably dilatation of the main pulmonary artery suggestive of increased pulmonary arterial pressure. Chest X-ray Extremely abnormal CXR with new pulmonary findings and persistently enlarged heart. Echo Clinical correlation is recommended. Right ventricular systolic pressure is elevated at 40-50 mmHg. There is severe tricuspid regurgitation. The right ventricle is moderately dilated. The right ventricular systolic function is moderately reduced. The right atrium is severely dilated. E/A reversal consistent with but not diagnostic of poor LV compliance. The left ventricular wall motion is normal. The left ventricular EF is normal. The left ventricular size, thickness, and function are normal. Chest X-ray (06/07/18) - Bilateral upper lobe predominant pneumonia Chest X-ray (06/08/18) - Decreased bilateral upper lobe consolidative opacities compatible with improving pneumonia. Chest X-ray (06/11/18) - Resolving bilateral upper lobe consolidation. No pleural effusion or pneumothorax is seen. Unchanged contour of the cardiac silhouette. CT Abdomen/Pelvis w/o contrast Paucity of fat and lack of IV contrast limiting this exam.Limited visualization of the pancreas as well as the mesentery.2 cm left renal cyst.There is no evidence of small bowel obstruction.Thickening of the rectosigmoid junction wall for which correlation with physical exam is needed.Moderate cardiomegaly.Interval partial clearing of previously visualized patchy airspace opacities in the lower lung. Microbiology 06/03/18 15:25 Blood - Peripheral Venous Blood Culture - Preliminary NO GROWTH OBTAINED AFTER 48 HOURS, INCUBATION TO CONTINUE FOR 3 DAYS. 06/03/18 15:25 Blood - Peripheral Venous Blood Culture - Preliminary NO GROWTH OBTAINED AFTER 48 HOURS, INCUBATION TO CONTINUE FOR 3 DAYS. 06/03/18 19:00 Sputum - Expectorated Gram Stain - Final 06/03/18 19:00 Sputum - Expectorated Sputum Culture - Final Yeast Like Organism 06/03/18 10:36 Sputum - Expectorated AFB Smear Concentration - Final 06/03/18 10:36 Sputum - Expectorated Direct Acid Fast Bacilli Smear - Final 06/03/18 10:36 Sputum - Expectorated Mycobacterial Culture - Preliminary 06/04/18 07:56 Sputum - Expectorated AFB Smear Concentration - Preliminary 06/04/18 07:56 Sputum - Expectorated Direct Acid Fast Bacilli Smear - Final 06/04/18 07:56 Sputum - Expectorated Mycobacterial Culture - Preliminary 06/03/18 19:00 Sputum - Expectorated LONNIE Preparation - Preliminary 06/03/18 19:00 Sputum - Expectorated Fungal Culture - Preliminary 06/03/18 08:12 Urine For Antigen Detection Legionella Antigen - Final 06/03/18 08:12 Urine For Antigen Detection Streptococcus pneumoniae Antigen M - Final ASSESSMENT/PLAN: Patient is a 72 year old female who presented with worsening dyspnea on exertion and hemoptysis for about 3 weeks. #Hemoptysis and PANIAGUA: likely 2/2 CAP -New onset fever -may be 2/2 reactive inflammation? -Blood Cx, UA/Urine Cx ordered. -CXR - resolving bilateral upper lobe consolidation. -AFB smear negative, AFB Sputum cultures negative x3. -Quantiferon TB test: Indeterminate. -Fungal culture - negative -c-ANCA, PR3, p-ANCA, MPO Ab negative. -ALEXIA positive. -Rheumatology (Dr. Malave) consulted. Recommendations appreciated. -Likely 2/2 to pulmonary HTN and PNA; can not totally rule out SLE -anti-histone, complement, anti-dsDNA ordered. -Pulmonary (Dr. Almeida) consulted. Recommendations appreciated: -Duoneb PRN -Continue antibiotics. -Monitor/quantify hemoptysis. -Bronchoscopy deferred as patient is clinically and radiographically improving. -ID (Dr. Mckeon) consulted. Recommendations appreciated. -Unasyn day 6. -Robitussin PRN for cough. #Hematuria on UA -Blood 3+, WBC 48 -CT scan of abdomen and pelvis done -- awaiting official read #Normocytic Anemia -Possibly secondary to lung pathology and inflammation. -Hgb today 8.3 -Stool guaiac -negative -Iron 33, TIBC 218, Iron saturation 15, Ferritin 68.4 -Retic ct - 2.56 -Ferrous sulfate started. -Continue Eliquis as patient is high CHADSVaSC risk score. -Will monitor H/H. Transfuse as necessary. #Pulmonary Hypertension -Echo -RV systolic pressure elevated at 40-50 mmHg. Severe TR. RV is moderately dilated. RV systolic function is moderately reduced. RA is severe dilated. -Cardiology (Dr. Gutierres) consulted. Recommendations appreciated: -Chronic condition for patient. She has declined right heart cath/eval by pulmonary HTN specialist numerous times in the past. -Says she will consider it as outpatient follow-up. #Hyponatremia: resolved -Likely SIADH from lung pathology and possible hyperglycemia #Hypokalemia: resolved #NIDDMII -Patient was previously on Januvia and Metformin. -Reports that her primary care discontinued all her medications and is currently just on diet and exercise. -A1C - 5.6 -BGM and ISS ACHS #HTN -Continue home medication with Hydralazine 100mg daily, Amlodipine 10mg daily, and Increase Losartan to 50mg BID -Continue to monitor BP #HLD -Continue Lipitor 20mg HS -Lipid panel ordered #Atrial Fibrillation -Rate controlled -Continue Eliquis 5mg BID. CHADSVaSC risk score 4. #F/E/N -Not on any standing fluids. -Encourage increased oral fluid intake. -Electrolytes wnl. -Sodium restricted/Diabetic diet. #Prophylaxis -Patient on Eliquis #Disposition -Full code -Discontinue isolation. Visit type - Emergency Visit Emergency Visit: Yes ED Registration Date: 06/02/18 Care time: The patient presented to the Emergency Department on the above date and was hospitalized for further evaluation of their emergent condition. - New Patient This patient is new to me today: Yes Date on this admission: 06/13/18 - Critical Care Critical Care patient: No
[2018-06-13] MEDS: VANCOMYCIN 1,000 MG in DEXTROSE 5%-WATER - 250 ML IVPB SCH (18:36)
[2018-06-13] MEDS: guaiFENesin/D-M SUGAR-FREE/ACLHOL-FREE 118 ML BOTTLE PO PRN (20:27)
[2018-06-13] MEDS: ATORVASTATIN CA 20 MG TABLET (FP) PO SCH (22:09)
[2018-06-14 00:07] LABS: COMPLEMENT TOTAL(CH50) > 60 U/mL (>41)
[2018-06-14] MEDS: CEFEPIME 2 GM in DEXTROSE 5%-WATER 100 ML IVPB SCH ×2 (05:53→18:10)
[2018-06-14] MEDS: guaiFENesin/D-M SUGAR-FREE/ACLHOL-FREE 118 ML BOTTLE PO PRN ×3 (05:53→22:18)
[2018-06-14 07:54] LABS: BASO % 0.5 % (0-2.0); EOS % 1.2 % (0-4.5); HEMOGLOBIN 7.9 GM/dL (10.7-15.3); LYMPH % 7.6 % (8-40); MCH 32.1 pg (25.7-33.7); MCHC 33.1 g/dl (32.0-36.0); MEAN PLT VOLUME 7.8 fl (7.5-11.1); MONO % 5.7 % (3.8-10.2); PLATELET COUNT 286 K/MM3 (134-434); RBC 2.47 M/mm3 (3.60-5.2); RDW 14.4 % (11.6-15.6); WHITE BLOOD COUNT 8.4 K/mm3 (4.0-10.0)
[2018-06-14 08:48] LABS: ALBUMIN 2.6 g/dl (3.4-5.0); ALK PHOS 74 U/L (45-117); ANION GAP 3 MMOL/L (8-16); BILIRUBIN,TOTAL 0.7 mg/dL (0.2-1); BLOOD UREA NITROGEN 10 mg/dL (7-18); CALCIUM 8.9 mg/dL (8.5-10.1); CHLORIDE 103 mmol/L (98-107); CO2 33 mmol/L (21-32); CREATININE 0.8 mg/dL (0.55-1.3); GLUCOSE,RANDOM 92 mg/dL (74-106); MAGNESIUM 2.1 mg/dL (1.8-2.4); POTASSIUM 4.1 mmol/L (3.5-5.1); SGOT/AST 29 U/L (15-37); SGPT/ALT 21 U/L (13-61); SODIUM 139 mmol/L (136-145); TOT PROT 6.7 g/dl (6.4-8.2)
--- NOTE | 2018-06-14 09:14 | PN ---
Physical Exam: SUBJECTIVE: Patient seen and examined at bedside. No current complaints. Continues to have hemoptysis, but improved since admission. Denies any chest pain SOB, nausea, vomiting, diarrhea, fevers, chills. OBJECTIVE: Vital Signs Period Temp Pulse Resp BP Sys/Red Pulse Ox Last 24 Hr 98.2 F-100.3 F 69-104 19-20 122-143/73-80 98 GENERAL: A&Ox3, no acute distress EYES: PERRLA, EOMI ENT: Moist mucus membranes NECK: No JVD LUNGS: CTA, mild wheezing noted b/l, patient on 3L O2 HEART: harsh systolic murmur noted on exam, rrr ABDOMEN: Soft, nontender, BS present MUSCULOSKELETAL: No CVA Tenderness EXTREMITIES: 2+ pulses, 1+ edema b/l NEUROLOGICAL: Cranial nerves II-XII intact. Laboratory Results - last 24 hr 06/09/18 06/10/18 06/12/18 05:30 08:43 06:18 WBC RBC Hgb Hct MCV MCH MCHC RDW Plt Count MPV Absolute Neuts (auto) Neutrophils % Lymphocytes % Monocytes % Eosinophils % Basophils % Nucleated RBC % Sodium Potassium Chloride Carbon Dioxide Anion Gap BUN Creatinine Creat Clearance w eGFR Random Glucose Calcium Phosphorus Magnesium Total Bilirubin AST ALT Alkaline Phosphatase C-Reactive Protein Total Protein Albumin Sm (Holt) Antibody <0.2 OFFICE CLEANER Antibody <0.2 Double Strand DNA Ab <1 Tot Complement (CH50) > 60 Aspergillus Antibody 0.09 Blood Type B POSITIVE Antibody Screen Negative Crossmatch See Detail 06/14/18 06/14/18 07:30 07:30 WBC 8.4 RBC 2.47 L Hgb 7.9 L Hct 24.0 L MCV 97.0 H MCH 32.1 MCHC 33.1 RDW 14.4 Plt Count 286 MPV 7.8 Absolute Neuts (auto) 7.1 Neutrophils % 85.0 H Lymphocytes % 7.6 L Monocytes % 5.7 Eosinophils % 1.2 Basophils % 0.5 Nucleated RBC % 0 Sodium 139 Potassium 4.1 Chloride 103 Carbon Dioxide 33 H Anion Gap 3 L BUN 10 Creatinine 0.8 Creat Clearance w eGFR > 60 Random Glucose 92 Calcium 8.9 Phosphorus 3.0 Magnesium 2.1 Total Bilirubin 0.7 AST 29 ALT 21 Alkaline Phosphatase 74 C-Reactive Protein 3.1 H Total Protein 6.7 Albumin 2.6 L Sm (Holt) Antibody OFFICE CLEANER Antibody Double Strand DNA Ab Tot Complement (CH50) Aspergillus Antibody Blood Type Antibody Screen Crossmatch Active Medications Generic Name Dose Route Start Last Admin Trade Name Toribioq PRN Reason Stop Dose Admin Acetaminophen 650 mg 06/10/18 11:43 06/13/18 19:00 Tylenol - PO 650 mg Q4H PRN Administration FEVER Amlodipine Besylate 10 mg 06/03/18 10:00 06/13/18 11:23 Norvasc - PO 10 mg DAILY ANITA Administration Apixaban 5 mg 06/02/18 22:00 06/13/18 22:09 Eliquis - PO 5 mg BID ANITA Administration Atorvastatin Calcium 20 mg 06/02/18 22:00 06/13/18 22:09 Lipitor - PO 20 mg HS ANITA Administration Brimonidine Tartrate 1 drop 06/02/18 22:00 06/13/18 22:10 Alphagan 0.15% - OU 1 drop BID ANITA Administration Ferrous Sulfate 325 mg 06/06/18 11:30 06/13/18 11:23 Feosol - PO 325 mg DAILY [facility]ITA Administration Guaifenesin 5 ml 06/08/18 12:49 06/14/18 05:53 Diabetic Tussin Dm - PO 5 ml Q6H PRN Administration COUGH Hydralazine HCl 100 mg 06/03/18 10:00 06/13/18 11:22 Apresoline - PO 100 mg DAILY ANITA Administration Vancomycin HCl 1,000 mg/ 250 mls @ 200 mls/hr 06/12/18 18:30 06/13/18 18:36 Dextrose IVPB 200 mls/hr Q24H ANITA Administration Protocol Cefepime HCl 2 gm/ Dextrose 100 mls @ 100 mls/hr 06/12/18 18:30 06/14/18 05: 53 IVPB 100 mls/hr Q12H ANITA Administration Protocol Losartan Potassium 50 mg 06/06/18 10:00 06/13/18 11:23 Cozaar - PO 50 mg DAILY ANITA Administration Ondansetron HCl 8 mg 06/09/18 10:08 06/09/18 10:40 Zofran Injection IVPB 8 mg Q8H PRN Administration NAUSEA AND/OR VOMITING ASSESSMENT/PLAN: Patient is a 72 year old female with a history of HTN, HLD, NIDDMII (Diet controlled), Atrial Fibrillation, Asthma/Bronchitis, cardiomegaly who presented with worsening dyspnea on exertion and hemoptysis for about 3 weeks. #Hemoptysis and Dyspnea on Exertion: resolving, which can possibly be due to pulmonary HTN/PNA, but autoimmune cause is a possibility given ALEXIA positivity - New, isolated fever yesterday -Blood Cx, UA/Urine Cx negative -CXR - resolving bilateral upper lobe consolidation -AFB smear negative, AFB Sputum cultures negative x3. -Quantiferon TB test: Indeterminate. -Fungal culture - negative -c-ANCA, PR3, p-ANCA, MPO Ab negative. -ALEXIA positive. -Rheumatology (Dr. Malave) consulted -anti-histone, complement, anti-dsDNA ordered. -Pulmonary (Dr. Almeida) consulted -Duoneb PRN -ID (Dr. Mckeon) consulted -cefepime, vanc discontinue -Robitussin PRN for cough. #Hematuria on UA -Blood 3+, WBC 48 -CT scan of abdomen and pelvis done -- no inciting factors found on CT scan #Normocytic Anemia: stable with a hgb 7.9 today -Possibly chronic inflammation, lung pathology - possibly due to iron- restricted erythropoiesis -Stool guaiac -negative -Iron 33, TIBC 218, Iron saturation 15, Ferritin 68.4 -Retic ct - 2.56 -Ferrous sulfate started. -Continue Eliquis as patient is high CHADSVaSC risk score. -Will monitor H/H. Transfusefor hgb < 7 #Pulmonary Hypertension -Echo -RV systolic pressure elevated at 40-50 mmHg. Severe TR. RV is moderately dilated. RV systolic function is moderately reduced. RA is severe dilated. -Cardiology (Dr. Gutierres) consulted. Recommendations appreciated: -Chronic condition for patient. She has declined right heart cath/eval by pulmonary HTN specialist numerous times in the past. -outpatient followup #Hyponatremia: resolved -Likely SIADH from lung pathology and possible hyperglycemia #Hypokalemia: resolved #NIDDMII -Reports that her primary care discontinued all her medications and is currently just on diet and exercise. -A1C - 5.6 -BGM and ISS ACHS #HTN -Continue home medication with Hydralazine 100mg daily, Amlodipine 10mg daily, and Increase Losartan to 50mg BID -Continue to monitor BP #HLD -Continue Lipitor 20mg HS -Lipid panel ordered #Atrial Fibrillation -Rate controlled -Continue Eliquis 5mg BID. CHADSVaSC risk score 4. #F/E/N -Not on any standing fluids. -Electrolytes wnl. -Sodium restricted/Diabetic diet. #Prophylaxis -Patient on Eliquis #Disposition -continue to monitor on med surg Visit type - Emergency Visit Emergency Visit: Yes ED Registration Date: 06/02/18 Care time: The patient presented to the Emergency Department on the above date and was hospitalized for further evaluation of their emergent condition. - New Patient This patient is new to me today: Yes Date on this admission: 06/14/18 - Critical Care Critical Care patient: No
--- NOTE | 2018-06-14 09:40 | PN ---
Teaching Attending Note Name of Resident: Issa Borja ATTENDING PHYSICIAN STATEMENT I saw and evaluated the patient. I reviewed the resident's note and discussed the case with the resident. I agree with the resident's findings and plan as documented with exceptions below. SUBJECTIVE: Patient seen and examined, still with scant hemoptysis, no new nausea, vomiting , dyspnea or abdominal pain. Overall feels well otherwise. OBJECTIVE: Vital Signs Period Temp Pulse Resp BP Sys/Red Pulse Ox Last 24 Hr 98.2 F-100.3 F 68-104 19-20 122-148/73-83 98 Intake & Output 06/11/18 06/12/18 06/13/18 06/14/18 23:59 23:59 23:59 23:59 Intake Total 1450 1850 1250 100 Balance 1450 1850 1250 100 General: sitting in bed in no acute distress Chest: improved rales, minimal appreciated, good air entry, no wheezing Abdomen:soft, NT throughout, ND, positive bowel sound Extremities: no edema Active Medications Acetaminophen (Tylenol -) 650 mg PO Q4H PRN PRN Reason: FEVER Last Admin: 06/13/18 19:00 Dose: 650 mg Amlodipine Besylate (Norvasc -) 10 mg PO DAILY [facility] Last Admin: 06/13/18 11:23 Dose: 10 mg Apixaban (Eliquis -) 5 mg PO BID [facility] Last Admin: 06/13/18 22:09 Dose: 5 mg Atorvastatin Calcium (Lipitor -) 20 mg PO HS [facility] Last Admin: 06/13/18 22:09 Dose: 20 mg Brimonidine Tartrate (Alphagan 0.15% -) 1 drop OU BID [facility] Last Admin: 06/13/18 22:10 Dose: 1 drop Ferrous Sulfate (Feosol -) 325 mg PO DAILY [facility] Last Admin: 06/13/18 11:23 Dose: 325 mg Guaifenesin (Diabetic Tussin Dm -) 5 ml PO Q6H PRN PRN Reason: COUGH Last Admin: 06/14/18 05:53 Dose: 5 ml Hydralazine HCl (Apresoline -) 100 mg PO DAILY [facility] Last Admin: 06/13/18 11:22 Dose: 100 mg Vancomycin HCl 1,000 mg/ (Dextrose) 250 mls @ 200 mls/hr IVPB Q24H [facility]; Protocol Last Admin: 06/13/18 18:36 Dose: 200 mls/hr Cefepime HCl 2 gm/ Dextrose 100 mls @ 100 mls/hr IVPB Q12H [facility]; Protocol Last Admin: 06/14/18 05:53 Dose: 100 mls/hr Losartan Potassium (Cozaar -) 50 mg PO DAILY [facility] Last Admin: 06/13/18 11:23 Dose: 50 mg Ondansetron HCl (Zofran Injection) 8 mg IVPB Q8H PRN PRN Reason: NAUSEA AND/OR VOMITING Last Admin: 06/09/18 10:40 Dose: 8 mg Laboratory Results - last 24 hr 06/09/18 06/10/18 06/12/18 05:30 08:43 06:18 WBC RBC Hgb Hct MCV MCH MCHC RDW Plt Count MPV Absolute Neuts (auto) Neutrophils % Lymphocytes % Monocytes % Eosinophils % Basophils % Nucleated RBC % Sodium Potassium Chloride Carbon Dioxide Anion Gap BUN Creatinine Creat Clearance w eGFR Random Glucose Calcium Phosphorus Magnesium Total Bilirubin AST ALT Alkaline Phosphatase C-Reactive Protein Total Protein Albumin Sm (Holt) Antibody <0.2 COSTUME SEAMSTRESS Antibody <0.2 Double Strand DNA Ab <1 Tot Complement (CH50) > 60 Aspergillus Antibody 0.09 Blood Type B POSITIVE Antibody Screen Negative Crossmatch See Detail 06/14/18 06/14/18 07:30 07:30 WBC 8.4 RBC 2.47 L Hgb 7.9 L Hct 24.0 L MCV 97.0 H MCH 32.1 MCHC 33.1 RDW 14.4 Plt Count 286 MPV 7.8 Absolute Neuts (auto) 7.1 Neutrophils % 85.0 H Lymphocytes % 7.6 L Monocytes % 5.7 Eosinophils % 1.2 Basophils % 0.5 Nucleated RBC % 0 Sodium 139 Potassium 4.1 Chloride 103 Carbon Dioxide 33 H Anion Gap 3 L BUN 10 Creatinine 0.8 Creat Clearance w eGFR > 60 Random Glucose 92 Calcium 8.9 Phosphorus 3.0 Magnesium 2.1 Total Bilirubin 0.7 AST 29 ALT 21 Alkaline Phosphatase 74 C-Reactive Protein 3.1 H Total Protein 6.7 Albumin 2.6 L Sm (Holt) Antibody COSTUME SEAMSTRESS Antibody Double Strand DNA Ab Tot Complement (CH50) Aspergillus Antibody Blood Type Antibody Screen Crossmatch Microbiology 06/12/18 07:45 Blood - Peripheral Venous Blood Culture - Preliminary NO GROWTH OBTAINED AFTER 48 HOURS, INCUBATION TO CONTINUE FOR 3 DAYS. 06/12/18 07:35 Blood - Peripheral Venous Blood Culture - Preliminary NO GROWTH OBTAINED AFTER 48 HOURS, INCUBATION TO CONTINUE FOR 3 DAYS. 06/12/18 09:15 Urine - Urine Clean Catch Urine Culture - Final NO GROWTH OBTAINED 06/05/18 16:00 Sputum - Expectorated AFB Smear Concentration - Final 06/05/18 16:00 Sputum - Expectorated Direct Acid Fast Bacilli Smear - Final 06/05/18 16:00 Sputum - Expectorated Mycobacterial Culture - Preliminary 06/03/18 15:25 Blood - Peripheral Venous Blood Culture - Final NO GROWTH AFTER 5 DAYS INCUBATION 06/03/18 15:25 Blood - Peripheral Venous Blood Culture - Final NO GROWTH AFTER 5 DAYS INCUBATION 06/04/18 07:56 Sputum - Expectorated AFB Smear Concentration - Final 06/04/18 07:56 Sputum - Expectorated Direct Acid Fast Bacilli Smear - Final 06/04/18 07:56 Sputum - Expectorated Mycobacterial Culture - Preliminary 06/03/18 19:00 Sputum - Expectorated Gram Stain - Final 06/03/18 19:00 Sputum - Expectorated Sputum Culture - Final Yeast Like Organism 06/03/18 10:36 Sputum - Expectorated AFB Smear Concentration - Final 06/03/18 10:36 Sputum - Expectorated Direct Acid Fast Bacilli Smear - Final 06/03/18 10:36 Sputum - Expectorated Mycobacterial Culture - Preliminary 06/03/18 19:00 Sputum - Expectorated LONNIE Preparation - Preliminary 06/03/18 19:00 Sputum - Expectorated Fungal Culture - Preliminary 06/03/18 08:12 Urine For Antigen Detection Legionella Antigen - Final 06/03/18 08:12 Urine For Antigen Detection Streptococcus pneumoniae Antigen (M - Final ASSESSMENT AND PLAN: 72yo F wtih PMH DM which is diet controlled, HTN, AFib on eliquis, asthma presented to the ER with hemoptysis and cough -Hemoptysis -Acute respiratory distress -Multifocal PNA, r/o vasculitis, TB/fungal illness -Hyponatremia -Hypokalemia -Anemia, iron deficiency/chronic blood loss +/- anemia of chronic disease -Paroxysmal Atrial fibrillation on eliquis -Diet controlled DM, A1c 5.6 -HTN Plan: Recurrent fevers. Repeat CXR with resolving consolidations. Blood cx neg so far. U/a noted, some hematuria. CT A/p non contrast results noted, mild thickening rectosigmoid, but no tenderness or GI symptoms. ID/Pulmonary input appreciated Discussed with Dr. Mckeon, d/c dottie today if blood cx persistently neg. Cefepime for now ?inflammatory process. ALEXIA screen positive. Rheumatology input noted. Follow up anti-histone, complement, anti-DNA ds, anti- CHELSEA. h/h noted, s/p venofer. s/p 1 unit PRBC 06/10 with appropriate response. Hemoptysis improved. Monitor CBC Continue eliquis with caution. Sputum cytology neg for malignancy sputum afb negative times 3 with 2 mtb probes negative Off afb isolation Replete lytes prn. HR controlled, not on AVN blockers given h/o junctional rhythm/Sinus bradycardia on the same. ISS,diabetic diet Continue losartan/hydralazine Dispo hold d/c planning given recurrent fevers. DVTPPX eliquis, monitor for now PT eval, Home oxygen needs assessment. Plan discussed with patient in detail, all questions answered.
[2018-06-14 10:27] LABS: ERYTHROCYTE SEDIMENTATION RATE 89 mm/hr (0-30)
[2018-06-14] MEDS: LOSARTAN POTASSIUM 50 MG TABLET (FP) PO SCH (10:29)
[2018-06-14] MEDS: FERROUS SO4 325 MG TABLET (FP) PO SCH (10:29)
[2018-06-14] MEDS: amLODIPine BESYLATE 10 MG TABLET (FP) PO SCH (10:29)
[2018-06-14] MEDS: APIXABAN 5 MG TABLET PO SCH ×2 (10:29→22:18)
[2018-06-14] MEDS: hydrALAZINE HCL 50 MG TABLET (FP) PO SCH (10:29)
[2018-06-14] MEDS: BRIMONIDINE TARTRATE 0.15% OPHTHALMIC 5 ML BOTTLE OU SCH ×2 (10:30→22:19)
--- NOTE | 2018-06-14 11:53 | PN ---
Progress Note, Physician Chief Complaint: cough with hemoptysis History of Present Illness: hemoptysis has nearly resolved--occasionally small flecks of blood in sputum. no more sob unless coughing fit--walking in [place] with nasal O2 on no cp, palpit, syncope - Current Medication List Current Medications: Active Medications Acetaminophen (Tylenol -) 650 mg PO Q4H PRN PRN Reason: FEVER Last Admin: 06/13/18 19:00 Dose: 650 mg Amlodipine Besylate (Norvasc -) 10 mg PO DAILY [facility] Last Admin: 06/14/18 10:29 Dose: 10 mg Apixaban (Eliquis -) 5 mg PO BID [facility] Last Admin: 06/14/18 10:29 Dose: 5 mg Atorvastatin Calcium (Lipitor -) 20 mg PO HS [facility] Last Admin: 06/13/18 22:09 Dose: 20 mg Brimonidine Tartrate (Alphagan 0.15% -) 1 drop OU BID [facility] Last Admin: 06/14/18 10:30 Dose: 1 drop Ferrous Sulfate (Feosol -) 325 mg PO DAILY [facility] Last Admin: 06/14/18 10:29 Dose: 325 mg Guaifenesin (Diabetic Tussin Dm -) 5 ml PO Q6H PRN PRN Reason: COUGH Last Admin: 06/14/18 05:53 Dose: 5 ml Hydralazine HCl (Apresoline -) 100 mg PO DAILY [facility] Last Admin: 06/14/18 10:29 Dose: 100 mg Cefepime HCl 2 gm/ Dextrose 100 mls @ 100 mls/hr IVPB Q12H [facility]; Protocol Last Admin: 06/14/18 05:53 Dose: 100 mls/hr Losartan Potassium (Cozaar -) 50 mg PO DAILY [facility] Last Admin: 06/14/18 10:29 Dose: 50 mg Ondansetron HCl (Zofran Injection) 8 mg IVPB Q8H PRN PRN Reason: NAUSEA AND/OR VOMITING Last Admin: 06/09/18 10:40 Dose: 8 mg - Objective Vital Signs: Vital Signs Temperature 99.7 F H 06/14/18 09:32 Pulse Rate 68 06/14/18 09:32 Respiratory Rate 20 06/14/18 09:32 Blood Pressure 148/83 06/14/18 09:32 O2 Sat by Pulse Oximetry (%) 98 06/13/18 21:00 Constitutional: Yes: Well Nourished, No Distress, Calm Cardiovascular: Yes: Regular Rate and Rhythm, Murmur (3/6 early EVY lusb), S1, S2. No: Gallop Respiratory: Yes: Regular, Rales (L base). No: Accessory Muscle Use Extremities: No: Cold Edema: Yes (1+ ankles) Neurological: Yes: Alert, Oriented Psychiatric: No: Agitated Labs: CBC, BMP 06/14/18 07:30 06/14/18 07:30 INR, PTT INR 1.52 (0.83-1.09) H 06/12/18 06:18 Assessment/Plan Stress Echo 08/02: 1:48 min (SOB). 75% MPHR. BP 140 rest, no change exercise. Non-ischemic stress test by EKG. +Atrial flutter with rapid conduction transiently seen during the recovery period, converting with evidence of brief sinus node arrest and junctional escape rhythm. Echo Findings: (1) No echocardiographic evidence of inducible ischemia--SUBMAX HR. (2) Moderate to severe (eccentric) TR seen. (3) Peak TR gradient is at least 52 mmHg. (4) Resting LV intracavitary gradient of 19 mmHg, rising to 86 mmHg on post- exercise images. (No systolic anterior motion of the mitral valve is seen at rest or post- exercise.) Cardiac CTA 03/03: no L to R shunt evidence. normal pulmonary veins. RV probably normal size. 4.1 cm ascending aorta. echo 05/2018: nl lv, mod dilated rv, mod dec rv fcn, sev denise, mild-mod mr, sev tr, rvsp 40-50, mod ar, mild pr cta lungs 05/2018: no pe, +pna ecg: sr, nl intervals, old IRBBB Echo 03/02 ([facility]): nl LV size and syst fxn; EF 83%. no LVH. slight mid-cavitary gradient (8). LVOT gradient 27 resting, up to 33 with valsalva. no mitral TEJA. dd1. hi LAP. nl LA size. mild-mod RVE, normal function. mild-mod DENISE. severe TR. PASP 67. neg bubble study. Renal dopplers 11/30: L stones, no hydro; normal size kidneys; no RA stenosis V/Q 04/2016: low prob for PE; central airway clumping/abnl ventil c/w airways dx and/or parenchymal dz PFTs 06/01: mild obstructive defect; mild decr DLCO; mild BD response a/p: 72 f hx pulm htn, htn, hld, here with PNA c/b hemoptysis. PNA: - sob much improved, hemoptysis nearly resolved. - cont abx per pulm, ID Anemia - ? pt baseline H/H (no prior values available) - hgb 6.9 initially (no massive hemoptysis to explain this), s/p 1 unit PRBC here to 8.0 range - counts stable, observe trend - continuing AC given no signif hemoptysis Paroxysmal atrial fibrillation: - not on av bushra blockers due to h/o junctional rhythm, sinus tessie - [id number] of 4, on Eliquis - hemoptysis sec to PNA, resolving with tx--continue AC as doing, monitor H/H closely htn: -cont current meds hld: -cont statin Pulmonary hypertension, rv dysfunction, sev tr: -chronic condition for patient. no congenital left to right shunt on CT. no obvious etiology including not apparent left heart CHF to explain this finding. -she has repeatedly declined RHC cath rec'd by me and by pulm HTN specialist, most recently earlier this month (despite understanding very hi risk of progressive RV failure in future) -outpt f/u with dr cespedes as scheduled -rec monitor O2 here at rest and with ambulation, to r/o new hypoxia requiring home O2
--- NOTE | 2018-06-14 11:55 | PN ---
Progress Note (short form) - Note Progress Note: PULMONARY Cough still with mild hemoptysis. Vital Signs Period Temp Pulse Resp BP Sys/Red Pulse Ox Last 24 Hr 98.2 F-100.3 F 68-104 19-20 139-148/73-83 98 Gen: NAD at rest Heart: RRR Lung: decreased breath sounds at the bases Abd: soft, nontender Ext: no edema CBC, BMP 06/14/18 07:30 06/14/18 07:30 Active Medications Acetaminophen (Tylenol -) 650 mg PO Q4H PRN PRN Reason: FEVER Last Admin: 06/13/18 19:00 Dose: 650 mg Amlodipine Besylate (Norvasc -) 10 mg PO DAILY [facility] Last Admin: 06/14/18 10:29 Dose: 10 mg Apixaban (Eliquis -) 5 mg PO BID [facility] Last Admin: 06/14/18 10:29 Dose: 5 mg Atorvastatin Calcium (Lipitor -) 20 mg PO HS [facility] Last Admin: 06/13/18 22:09 Dose: 20 mg Brimonidine Tartrate (Alphagan 0.15% -) 1 drop OU BID [facility] Last Admin: 06/14/18 10:30 Dose: 1 drop Ferrous Sulfate (Feosol -) 325 mg PO DAILY [facility] Last Admin: 06/14/18 10:29 Dose: 325 mg Guaifenesin (Diabetic Tussin Dm -) 5 ml PO Q6H PRN PRN Reason: COUGH Last Admin: 06/14/18 05:53 Dose: 5 ml Hydralazine HCl (Apresoline -) 100 mg PO DAILY [facility] Last Admin: 06/14/18 10:29 Dose: 100 mg Cefepime HCl 2 gm/ Dextrose 100 mls @ 100 mls/hr IVPB Q12H [facility]; Protocol Last Admin: 06/14/18 05:53 Dose: 100 mls/hr Losartan Potassium (Cozaar -) 50 mg PO DAILY [facility] Last Admin: 06/14/18 10:29 Dose: 50 mg Ondansetron HCl (Zofran Injection) 8 mg IVPB Q8H PRN PRN Reason: NAUSEA AND/OR VOMITING Last Admin: 06/09/18 10:40 Dose: 8 mg A/P Bilateral Pneumonia improving Hemoptysis improving Pulmonary HTN Asthma Atrial Fibrillation HTN DM ANEMIA - f/u repeat cultures - antibiotics as per ID - continue anticoagulation - inhaled bronchodilators - monitor/quantify hemoptysis - DVT prophylaxis - will need outpt f/u of chest imaging to ensure resolution of infiltrates Problem List - Problems (1) Hemoptysis Code(s): R04.2 - HEMOPTYSIS (2) Pneumonia Code(s): J18.9 - PNEUMONIA, UNSPECIFIED ORGANISM (3) Pulmonary HTN Code(s): I27.20 - PULMONARY HYPERTENSION, UNSPECIFIED (4) Asthma Code(s): J45.909 - UNSPECIFIED ASTHMA, UNCOMPLICATED
[2018-06-14] MEDS ORDERED: PT OWN MED DRAWER 7, Y5N ONE ×3 (15:00→22:13)
--- NOTE | 2018-06-14 15:06 | PN ---
Progress Note, Physician History of Present Illness: OOB in chair Reports feeling better Temps down- low grade + blood-streaked sputum Cultures no growth - Current Medication List Current Medications: Active Medications Acetaminophen (Tylenol -) 650 mg PO Q4H PRN PRN Reason: FEVER Last Admin: 06/13/18 19:00 Dose: 650 mg Amlodipine Besylate (Norvasc -) 10 mg PO DAILY [facility] Last Admin: 06/14/18 10:29 Dose: 10 mg Apixaban (Eliquis -) 5 mg PO BID [facility] Last Admin: 06/14/18 10:29 Dose: 5 mg Atorvastatin Calcium (Lipitor -) 20 mg PO HS [facility] Last Admin: 06/13/18 22:09 Dose: 20 mg Brimonidine Tartrate (Alphagan 0.15% -) 1 drop OU BID [facility] Last Admin: 06/14/18 10:30 Dose: 1 drop Ferrous Sulfate (Feosol -) 325 mg PO DAILY [facility] Last Admin: 06/14/18 10:29 Dose: 325 mg Guaifenesin (Diabetic Tussin Dm -) 5 ml PO Q6H PRN PRN Reason: COUGH Last Admin: 06/14/18 15:01 Dose: 5 ml Hydralazine HCl (Apresoline -) 100 mg PO DAILY [facility] Last Admin: 06/14/18 10:29 Dose: 100 mg Cefepime HCl 2 gm/ Dextrose 100 mls @ 100 mls/hr IVPB Q12H [facility]; Protocol Last Admin: 06/14/18 05:53 Dose: 100 mls/hr Losartan Potassium (Cozaar -) 50 mg PO DAILY [facility] Last Admin: 06/14/18 10:29 Dose: 50 mg Ondansetron HCl (Zofran Injection) 8 mg IVPB Q8H PRN PRN Reason: NAUSEA AND/OR VOMITING Last Admin: 06/09/18 10:40 Dose: 8 mg - Objective Vital Signs: Vital Signs Temperature 98.7 F 06/14/18 14:58 Pulse Rate 70 06/14/18 14:58 Respiratory Rate 20 06/14/18 14:58 Blood Pressure 111/58 L 06/14/18 14:58 O2 Sat by Pulse Oximetry (%) 98 06/14/18 09:00 Constitutional: Yes: No Distress Cardiovascular: Yes: Regular Rate and Rhythm, S1, S2 Respiratory: Yes: Diminished Gastrointestinal: Yes: Normal Bowel Sounds, Soft. No: Tenderness Edema: Yes Edema: LLE: 2+, RLE: 2+ Labs: CBC, BMP 06/14/18 07:30 06/14/18 07:30 INR, PTT INR 1.52 (0.83-1.09) H 06/12/18 06:18 Assessment/Plan Pneumonia Hemoptysis Continue empiric cefepime
[2018-06-14] MEDS: ATORVASTATIN CA 20 MG TABLET (FP) PO SCH (22:18)
[2018-06-14] MEDS: ACETAMINOPHEN 325 MG TABLET (FP) PO PRN (22:18)
--- NOTE | 2018-06-14 23:15 | EKG ---
Test Reason : Blood Pressure : / mmHG Vent. Rate : 069 BPM Atrial Rate : 069 BPM P-R Int : 000 ms QRS Dur : 106 ms QT Int : 416 ms P-R-T Axes : 000 080 030 degrees QTc Int : 445 ms ACCELERATED JUNCTIONAL RHYTHM INCOMPLETE RIGHT BUNDLE BRANCH BLOCK ABNORMAL ECG WHEN COMPARED WITH ECG OF 02-JUN-2018 15:06, JUNCTIONAL RHYTHM HAS REPLACED SINUS RHYTHM Confirmed by ELLEN ALONZO MD ([id number]) on 06/14/2018 11:15:06 PM Referred By: Confirmed By:ELLEN ALONZO MD
[2018-06-15] MEDS: CEFEPIME 2 GM in DEXTROSE 5%-WATER 100 ML IVPB SCH ×2 (05:50→17:52)
[2018-06-15 08:32] LABS: BASO % 0.6 % (0-2.0); EOS % 1.9 % (0-4.5); HEMATOCRIT 24.9 % (32.4-45.2); HEMOGLOBIN 8.1 GM/dL (10.7-15.3); LYMPH % 11.3 % (8-40); MCH 31.7 pg (25.7-33.7); MCHC 32.6 g/dl (32.0-36.0); MEAN CELL VOLUME 97.3 fl (80-96); MEAN PLT VOLUME 8.5 fl (7.5-11.1); NEUT % 81.2 % (42.8-82.8); PLATELET COUNT 278 K/MM3 (134-434); RBC 2.56 M/mm3 (3.60-5.2); RDW 14.5 % (11.6-15.6); WHITE BLOOD COUNT 7.4 K/mm3 (4.0-10.0)
[2018-06-15] MEDS: hydrALAZINE HCL 50 MG TABLET (FP) PO SCH (09:00)
[2018-06-15] MEDS: BRIMONIDINE TARTRATE 0.15% OPHTHALMIC 5 ML BOTTLE OU SCH ×2 (09:30→22:21)
[2018-06-15] MEDS: amLODIPine BESYLATE 10 MG TABLET (FP) PO SCH (09:30)
[2018-06-15] MEDS: FERROUS SO4 325 MG TABLET (FP) PO SCH (09:31)
[2018-06-15] MEDS: LOSARTAN POTASSIUM 50 MG TABLET (FP) PO SCH (09:31)
[2018-06-15] MEDS: APIXABAN 5 MG TABLET PO SCH ×2 (09:31→22:22)
--- NOTE | 2018-06-15 11:12 | PN ---
Progress Note (short form) - Note Progress Note: s: no cp palps dizzy. still with cough, no sig sob Current Medications Generic Name Dose Route Start Last Admin Trade Name Freq PRN Reason Stop Dose Admin Acetaminophen 650 mg 06/10/18 11:43 06/14/18 22:18 Tylenol - PO 650 mg Q4H PRN Administration FEVER Amlodipine Besylate 10 mg 06/03/18 10:00 06/15/18 09:30 Norvasc - PO 10 mg DAILY [facility] Administration Apixaban 5 mg 06/02/18 22:00 06/15/18 09:31 Eliquis - PO 5 mg BID [facility] Administration Atorvastatin Calcium 20 mg 06/02/18 22:00 06/14/18 22:18 Lipitor - PO 20 mg HS [facility] Administration Brimonidine Tartrate 1 drop 06/02/18 22:00 06/15/18 09:30 Alphagan 0.15% - OU 1 drop BID [facility] Administration Ferrous Sulfate 325 mg 06/06/18 11:30 06/15/18 09:31 Feosol - PO 325 mg DAILY [facility] Administration Guaifenesin 5 ml 06/08/18 12:49 06/14/18 22:18 Diabetic Tussin Dm - PO 5 ml Q6H PRN Administration COUGH Hydralazine HCl 100 mg 06/03/18 10:00 06/15/18 09:00 Apresoline - PO 100 mg DAILY [facility] Administration Cefepime HCl 2 gm/ Dextrose 100 mls @ 100 mls/hr 06/12/18 18:30 06/15/18 05: 50 IVPB 100 mls/hr Q12H [facility] Administration Protocol Losartan Potassium 50 mg 06/06/18 10:00 06/15/18 09:31 Cozaar - PO 50 mg DAILY [facility] Administration Ondansetron HCl 8 mg 06/09/18 10:08 06/09/18 10:40 Zofran Injection IVPB 8 mg Q8H PRN Administration NAUSEA AND/OR VOMITING Vital Signs Period Temp Pulse Resp BP Sys/Red Pulse Ox Last 24 Hr 98.3 F-101.1 F 57-86 20-20 100-154/58-81 98 nad no jvd rrr s1s2 no mrg cta bl, nl eff aao3 trace le edema bl, no c/c abd nt nd pos bs no jaundice diaphoresis CBC, BMP 06/15/18 07:13 06/14/18 07:30 Stress Echo 08/02: 1:48 min (SOB). 75% MPHR. BP 140 rest, no change exercise. Non-ischemic stress test by EKG. +Atrial flutter with rapid conduction transiently seen during the recovery period, converting with evidence of brief sinus node arrest and junctional escape rhythm. Echo Findings: (1) No echocardiographic evidence of inducible ischemia--SUBMAX HR. (2) Moderate to severe (eccentric) TR seen. (3) Peak TR gradient is at least 52 mmHg. (4) Resting LV intracavitary gradient of 19 mmHg, rising to 86 mmHg on post- exercise images. (No systolic anterior motion of the mitral valve is seen at rest or post- exercise.) Cardiac CTA 03/03: no L to R shunt evidence. normal pulmonary veins. RV probably normal size. 4.1 cm ascending aorta. echo 05/2018: nl lv, mod dilated rv, mod dec rv fcn, sev denise, mild-mod mr, sev tr, rvsp 40-50, mod ar, mild pr cta lungs 05/2018: no pe, +pna ecg: sr, nl intervals, old IRBBB Echo 03/02 ([facility]): nl LV size and syst fxn; EF 83%. no LVH. slight mid-cavitary gradient (8). LVOT gradient 27 resting, up to 33 with valsalva. no mitral TEJA. dd1. hi LAP. nl LA size. mild-mod RVE, normal function. mild-mod DENIES. severe TR. PASP 67. neg bubble study. Echo 04/2016: 1. The left ventricular size is normal. 2. Overall left ventricular systolic function is normal with, an EF between 65 - 70 %. 3. No regional wall motion abnormalities were noted (apex not well seen). 4. The right ventricle is normal in size and function. 5. Left atrium is mildly dilated by volume. 6. The right atrium is markedly enlarged. 7. 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 8. There is mild aortic regurgitation. 9. The tricuspid valve appears structurally normal. 10. Moderate tricuspid regurgitation present; eccentric jet present, which hugs the interatrial septum--severity may be underestimated. 11. There is moderate pulmonary hypertension. 12. The right ventricular systolic pressure, as measured by Doppler, is 61 mmHg (assuming RA pressure of 3 mmHg). 13. [id number] pulmonic regurgitation. Echo 04/30: nl LV/EF; dd1; nl RV; nl LA; mild DENISE; mild AI; eccentric TR at least moderate; nl LAP; nl RAP; mild pHTN (49); prob mild dilated ascending aorta (3.7); IASA (no PFO) Echo 2013 (at [facility]): moderate pulm HTN; 56mmHg Renal dopplers 11/30: L stones, no hydro; normal size kidneys; no RA stenosis V/Q 04/2016: low prob for PE; central airway clumping/abnl ventil c/w airways dx and/or parenchymal dz PFTs 06/01: mild obstructive defect; mild decr DLCO; mild BD response a/p: 72 f hx pulm htn, htn, hld, here with sob, cough. sob, cough: - PNA - sxs improving, on abx but now with new fevers, infectious w/u ongoing - pulm, ID following Anemia - s/p 1 unit PRBC - would continue eliquis due to high [id number] Paroxysmal atrial fibrillation: - not on av bushra blockers due to h/o junctional rhythm, sinus tessie - on eliquis due to [id number] of 4, would continue htn: -cont current meds hld: -cont statin Pulmonary hypertension, rv dysfunction, sev tr: -chronic condition for patient. she has declined RHC cath/eval by pulm htn specialist numerous times in past. says she will consider it, outpt f/u with Dr. Gutierres -rec monitor O2 here at rest and with ambulation, to r/o new hypoxia requiring home O2
--- NOTE | 2018-06-15 13:18 | PN ---
Progress Note (short form) - Note Progress Note: PULMONARY Febrile to 101.1. Cough still with mild hemoptysis. Vital Signs Period Temp Pulse Resp BP Sys/Red Pulse Ox Last 24 Hr 98.3 F-101.1 F 57-86 20-20 100-154/58-81 98-98 Gen: NAD at rest Heart: RRR Lung: decreased breath sounds at the bases Abd: soft, nontender Ext: no edema CBC, BMP 06/15/18 07:13 06/14/18 07:30 Active Medications Acetaminophen (Tylenol -) 650 mg PO Q4H PRN PRN Reason: FEVER Last Admin: 06/14/18 22:18 Dose: 650 mg Amlodipine Besylate (Norvasc -) 10 mg PO DAILY [facility] Last Admin: 06/15/18 09:30 Dose: 10 mg Apixaban (Eliquis -) 5 mg PO BID [facility] Last Admin: 06/15/18 09:31 Dose: 5 mg Atorvastatin Calcium (Lipitor -) 20 mg PO HS [facility] Last Admin: 06/14/18 22:18 Dose: 20 mg Brimonidine Tartrate (Alphagan 0.15% -) 1 drop OU BID [facility] Last Admin: 06/15/18 09:30 Dose: 1 drop Ferrous Sulfate (Feosol -) 325 mg PO DAILY [facility] Last Admin: 06/15/18 09:31 Dose: 325 mg Guaifenesin (Diabetic Tussin Dm -) 5 ml PO Q6H PRN PRN Reason: COUGH Last Admin: 06/14/18 22:18 Dose: 5 ml Hydralazine HCl (Apresoline -) 100 mg PO DAILY [facility] Last Admin: 06/15/18 09:00 Dose: 100 mg Cefepime HCl 2 gm/ Dextrose 100 mls @ 100 mls/hr IVPB Q12H [facility]; Protocol Last Admin: 06/15/18 05:50 Dose: 100 mls/hr Losartan Potassium (Cozaar -) 50 mg PO DAILY [facility] Last Admin: 06/15/18 09:31 Dose: 50 mg Ondansetron HCl (Zofran Injection) 8 mg IVPB Q8H PRN PRN Reason: NAUSEA AND/OR VOMITING Last Admin: 06/09/18 10:40 Dose: 8 mg A/P Bilateral Pneumonia improving Hemoptysis improving Pulmonary HTN Asthma Atrial Fibrillation HTN DM ANEMIA - repeat CXR - f/u repeat cultures - antibiotics as per ID - continue anticoagulation - inhaled bronchodilators - monitor/quantify hemoptysis - DVT prophylaxis - will need outpt f/u of chest imaging to ensure resolution of infiltrates Problem List - Problems (1) Hemoptysis Code(s): R04.2 - HEMOPTYSIS (2) Pneumonia Code(s): J18.9 - PNEUMONIA, UNSPECIFIED ORGANISM (3) Pulmonary HTN Code(s): I27.20 - PULMONARY HYPERTENSION, UNSPECIFIED (4) Asthma Code(s): J45.909 - UNSPECIFIED ASTHMA, UNCOMPLICATED
[2018-06-15] MEDS ORDERED: PT OWN MED DRAWER 7, Y5N ONE ×2 (16:04→22:19)
--- NOTE | 2018-06-15 17:17 | PN ---
Physical Exam: SUBJECTIVE: Patient seen and examined, no new concerns. Scant hemoptysis ongoing OBJECTIVE: Vital Signs Period Temp Pulse Resp BP Sys/Red Pulse Ox Last 24 Hr 98.3 F-101.1 F 57-86 20-20 100-154/58-81 98-98 General: sitting in chair in no acute distress Chest: improved bilateral rales, positive bowel sounds Extremities: no edema Abdomen:soft, NT throughout, ND, positive bowel sounds CVS:S1S2 regular Neck: Soft, supple, no JVD Laboratory Results - last 24 hr 06/15/18 07:13 WBC 7.4 RBC 2.56 L Hgb 8.1 L Hct 24.9 L MCV 97.3 H MCH 31.7 MCHC 32.6 RDW 14.5 Plt Count 278 MPV 8.5 Absolute Neuts (auto) 6.0 Neutrophils % 81.2 Lymphocytes % 11.3 D Monocytes % 5.0 Eosinophils % 1.9 Basophils % 0.6 Nucleated RBC % 0 Active Medications Generic Name Dose Route Start Last Admin Trade Name Freq PRN Reason Stop Dose Admin Acetaminophen 650 mg 06/10/18 11:43 06/14/18 22:18 Tylenol - PO 650 mg Q4H PRN Administration FEVER Amlodipine Besylate 10 mg 06/03/18 10:00 06/15/18 09:30 Norvasc - PO 10 mg DAILY ANITA Administration Apixaban 5 mg 06/02/18 22:00 06/15/18 09:31 Eliquis - PO 5 mg BID ANITA Administration Atorvastatin Calcium 20 mg 06/02/18 22:00 06/14/18 22:18 Lipitor - PO 20 mg HS ANITA Administration Brimonidine Tartrate 1 drop 06/02/18 22:00 06/15/18 09:30 Alphagan 0.15% - OU 1 drop BID ANITA Administration Ferrous Sulfate 325 mg 06/06/18 11:30 06/15/18 09:31 Feosol - PO 325 mg DAILY ANITA Administration Guaifenesin 5 ml 06/08/18 12:49 06/14/18 22:18 Diabetic Tussin Dm - PO 5 ml Q6H PRN Administration COUGH Hydralazine HCl 100 mg 06/03/18 10:00 06/15/18 09:00 Apresoline - PO 100 mg DAILY ANITA Administration Cefepime HCl 2 gm/ Dextrose 100 mls @ 100 mls/hr 06/12/18 18:30 06/15/18 05: 50 IVPB 100 mls/hr Q12H ANITA Administration Protocol Losartan Potassium 50 mg 06/06/18 10:00 06/15/18 09:31 Cozaar - PO 50 mg DAILY ANITA Administration Ondansetron HCl 8 mg 06/09/18 10:08 06/09/18 10:40 Zofran Injection IVPB 8 mg Q8H PRN Administration NAUSEA AND/OR VOMITING ASSESSMENT/PLAN: 72yo F wtih PMH DM which is diet controlled, HTN, AFib on eliquis, asthma presented to the ER with hemoptysis and cough -Hemoptysis -Acute respiratory distress -Multifocal PNA, r/o vasculitis, TB/fungal illness -Hyponatremia -Hypokalemia -Anemia, iron deficiency/chronic blood loss +/- anemia of chronic disease -Paroxysmal Atrial fibrillation on eliquis -Diet controlled DM, A1c 5.6 -HTN Plan: Recurrent fevers. Repeat CXR overall unchanged. Blood cx neg so far. U/a noted, some hematuria. CT A/p non contrast results noted, mild thickening rectosigmoid, but no tenderness or GI symptoms. ID/Pulmonary input appreciated Cefepime for now, follow up with ID. No diarrhea noted. ?inflammatory process. ALEXIA screen positive. Rheumatology input noted. Follow up anti-histone, complement, anti-DNA ds, anti- CHELSEA. h/h noted, s/p venofer. s/p 1 unit PRBC 06/10 with appropriate response. Hemoptysis improved. Monitor CBC Continue eliquis with caution. Sputum cytology neg for malignancy sputum afb negative times 3 with 2 mtb probes negative Off afb isolation Replete lytes prn. HR controlled, not on AVN blockers given h/o junctional rhythm/Sinus bradycardia on the same. ISS,diabetic diet Continue losartan/hydralazine Dispo hold d/c planning given recurrent fevers. DVTPPX eliquis, monitor for now PT eval, Home oxygen needs assessment. Plan discussed with patient in detail, all questions answered. Visit type - Emergency Visit Emergency Visit: Yes ED Registration Date: 06/02/18 Care time: The patient presented to the Emergency Department on the above date and was hospitalized for further evaluation of their emergent condition. - New Patient This patient is new to me today: No - Critical Care Critical Care patient: No - Discharge Referral Referred to [facility] No
[2018-06-15] MEDS: guaiFENesin/D-M SUGAR-FREE/ACLHOL-FREE 118 ML BOTTLE PO PRN (22:22)
[2018-06-15] MEDS: ATORVASTATIN CA 20 MG TABLET (FP) PO SCH (22:22)
[2018-06-16] MEDS ORDERED: PT OWN MED DRAWER 7, Y5N ONE ×3 (05:39→20:41)
[2018-06-16] MEDS: CEFEPIME 2 GM in DEXTROSE 5%-WATER 100 ML IVPB SCH ×2 (05:56→18:13)
[2018-06-16 07:21] LABS: BASO % 0.7 % (0-2.0); EOS % 1.9 % (0-4.5); HEMATOCRIT 23.8 % (32.4-45.2); HEMOGLOBIN 7.8 GM/dL (10.7-15.3); LYMPH % 11.4 % (8-40); MCH 31.7 pg (25.7-33.7); MCHC 32.7 g/dl (32.0-36.0); MEAN CELL VOLUME 96.9 fl (80-96); MEAN PLT VOLUME 8.4 fl (7.5-11.1); MONO % 5.6 % (3.8-10.2); NEUT % 80.4 % (42.8-82.8); PLATELET COUNT 270 K/MM3 (134-434); RBC 2.45 M/mm3 (3.60-5.2); RDW 15.1 % (11.6-15.6); WHITE BLOOD COUNT 7.2 K/mm3 (4.0-10.0)
--- NOTE | 2018-06-16 08:41 | PN ---
Teaching Attending Note Name of Resident: Elsy Johnston ATTENDING PHYSICIAN STATEMENT I saw and evaluated the patient. I reviewed the resident's note and discussed the case with the resident. I agree with the resident's findings and plan as documented with exceptions below. SUBJECTIVE: Patient seen and examined. OBJECTIVE: Vital Signs Period Temp Pulse Resp BP Sys/Red Pulse Ox Last 24 Hr 98.5 F-99.1 F 64-91 20-21 121-154/56-73 96-98 Intake & Output 06/13/18 06/14/18 06/15/18 06/16/18 23:59 23:59 23:59 23:59 Intake Total 1250 1050 1200 350 Balance 1250 1050 1200 350 General: Chest: Abdomen: Extremities: Active Medications Acetaminophen (Tylenol -) 650 mg PO Q4H PRN PRN Reason: FEVER Last Admin: 06/14/18 22:18 Dose: 650 mg Amlodipine Besylate (Norvasc -) 10 mg PO DAILY [facility] Last Admin: 06/15/18 09:30 Dose: 10 mg Apixaban (Eliquis -) 5 mg PO BID ANITA Last Admin: 06/15/18 22:22 Dose: 5 mg Atorvastatin Calcium (Lipitor -) 20 mg PO HS ANITA Last Admin: 06/15/18 22:22 Dose: 20 mg Brimonidine Tartrate (Alphagan 0.15% -) 1 drop OU BID ANITA Last Admin: 06/15/18 22:21 Dose: 1 drop Ferrous Sulfate (Feosol -) 325 mg PO DAILY [facility] Last Admin: 06/15/18 09:31 Dose: 325 mg Guaifenesin (Diabetic Tussin Dm -) 5 ml PO Q6H PRN PRN Reason: COUGH Last Admin: 06/15/18 22:22 Dose: 5 ml Hydralazine HCl (Apresoline -) 100 mg PO DAILY [facility] Last Admin: 06/15/18 09:00 Dose: 100 mg Cefepime HCl 2 gm/ Dextrose 100 mls @ 100 mls/hr IVPB Q12H [facility]; Protocol Last Admin: 06/16/18 05:56 Dose: 100 mls/hr Losartan Potassium (Cozaar -) 50 mg PO DAILY [facility] Last Admin: 06/15/18 09:31 Dose: 50 mg Ondansetron HCl (Zofran Injection) 8 mg IVPB Q8H PRN PRN Reason: NAUSEA AND/OR VOMITING Last Admin: 06/09/18 10:40 Dose: 8 mg Laboratory Results - last 24 hr 06/15/18 06/16/18 07:13 06:10 WBC 7.4 7.2 RBC 2.56 L 2.45 L Hgb 8.1 L 7.8 L Hct 24.9 L 23.8 L MCV 97.3 H 96.9 H MCH 31.7 31.7 MCHC 32.6 32.7 RDW 14.5 15.1 Plt Count 278 270 MPV 8.5 8.4 Absolute Neuts (auto) 6.0 5.8 Neutrophils % 81.2 80.4 Lymphocytes % 11.3 D 11.4 Monocytes % 5.0 5.6 Eosinophils % 1.9 1.9 Basophils % 0.6 0.7 Nucleated RBC % 0 0 Microbiology 06/12/18 07:45 Blood - Peripheral Venous Blood Culture - Preliminary NO GROWTH OBTAINED AFTER 96 HOURS, INCUBATION TO CONTINUE FOR 1 DAYS. 06/12/18 07:35 Blood - Peripheral Venous Blood Culture - Preliminary NO GROWTH OBTAINED AFTER 96 HOURS, INCUBATION TO CONTINUE FOR 1 DAYS. 06/12/18 09:15 Urine - Urine Clean Catch Urine Culture - Final NO GROWTH OBTAINED 06/05/18 16:00 Sputum - Expectorated AFB Smear Concentration - Final 06/05/18 16:00 Sputum - Expectorated Direct Acid Fast Bacilli Smear - Final 06/05/18 16:00 Sputum - Expectorated Mycobacterial Culture - Preliminary 06/03/18 15:25 Blood - Peripheral Venous Blood Culture - Final NO GROWTH AFTER 5 DAYS INCUBATION 06/03/18 15:25 Blood - Peripheral Venous Blood Culture - Final NO GROWTH AFTER 5 DAYS INCUBATION 06/04/18 07:56 Sputum - Expectorated AFB Smear Concentration - Final 06/04/18 07:56 Sputum - Expectorated Direct Acid Fast Bacilli Smear - Final 06/04/18 07:56 Sputum - Expectorated Mycobacterial Culture - Preliminary 06/03/18 19:00 Sputum - Expectorated Gram Stain - Final 06/03/18 19:00 Sputum - Expectorated Sputum Culture - Final Yeast Like Organism 06/03/18 10:36 Sputum - Expectorated AFB Smear Concentration - Final 06/03/18 10:36 Sputum - Expectorated Direct Acid Fast Bacilli Smear - Final 06/03/18 10:36 Sputum - Expectorated Mycobacterial Culture - Preliminary 06/03/18 19:00 Sputum - Expectorated LONNIE Preparation - Preliminary 06/03/18 19:00 Sputum - Expectorated Fungal Culture - Preliminary 06/03/18 08:12 Urine For Antigen Detection Legionella Antigen - Final 06/03/18 08:12 Urine For Antigen Detection Streptococcus pneumoniae Antigen (M - Final CXR from 06/15 noted ASSESSMENT AND PLAN: 72yo F wtih PMH DM which is diet controlled, HTN, AFib on eliquis, asthma presented to the ER with hemoptysis and cough -Hemoptysis -Acute respiratory distress -Multifocal PNA, r/o vasculitis, TB/fungal illness -Hyponatremia -Hypokalemia -Anemia, iron deficiency/chronic blood loss +/- anemia of chronic disease -Paroxysmal Atrial fibrillation on eliquis -Diet controlled DM, A1c 5.6 -HTN Plan: Recurrent fevers on 06/14. Repeat CXR overall unchanged. Blood cx neg so far. U/a noted, some hematuria. CT A/p non contrast results noted, mild thickening rectosigmoid, but no tenderness or GI symptoms. ID/Pulmonary input appreciated Cefepime for now, follow up with ID. No diarrhea noted. ?inflammatory process. ALEXIA screen positive. Rheumatology input noted. Follow up anti-histone, complement, anti-DNA ds, anti- CHELSEA. h/h noted, s/p venofer. s/p 1 unit PRBC 06/10 with appropriate response. Hemoptysis improved. Monitor CBC Continue eliquis with caution. Sputum cytology neg for malignancy sputum afb negative times 3 with 2 mtb probes negative Off afb isolation Replete lytes prn. HR controlled, not on AVN blockers given h/o junctional rhythm/Sinus bradycardia on the same. ISS,diabetic diet Continue losartan/hydralazine Dispo hold d/c planning given recurrent fevers. DVTPPX eliquis, monitor for now PT eval, Home oxygen needs assessment. Plan discussed with patient in detail, all questions answered.
[2018-06-16] MEDS: LOSARTAN POTASSIUM 50 MG TABLET (FP) PO SCH (10:12)
[2018-06-16] MEDS: APIXABAN 5 MG TABLET PO SCH ×2 (10:12→21:09)
[2018-06-16] MEDS: BRIMONIDINE TARTRATE 0.15% OPHTHALMIC 5 ML BOTTLE OU SCH ×2 (10:12→21:10)
[2018-06-16] MEDS: amLODIPine BESYLATE 10 MG TABLET (FP) PO SCH (10:12)
[2018-06-16] MEDS: FERROUS SO4 325 MG TABLET (FP) PO SCH (10:12)
[2018-06-16] MEDS: hydrALAZINE HCL 50 MG TABLET (FP) PO SCH (10:12)
--- NOTE | 2018-06-16 11:27 | PN ---
Progress Note (short form) - Note Progress Note: OOB to chair. Overall feeling better. Still with some residual blood streaked sputum. CXR: 06/15: improving bilateral infiltrates from admission Intake & Output 06/13/18 06/14/18 06/15/18 06/16/18 23:59 23:59 23:59 23:59 Intake Total 1250 1050 1200 350 Balance 1250 1050 1200 350 Last Vital Signs Temp Pulse Resp BP Pulse Ox 98.5 F 75 20 138/77 92 L 06/16/18 10:00 06/16/18 10:11 06/16/18 10:00 06/16/18 10:00 06/16/18 10:11 Active Medications Acetaminophen (Tylenol -) 650 mg PO Q4H PRN PRN Reason: FEVER Last Admin: 06/14/18 22:18 Dose: 650 mg Amlodipine Besylate (Norvasc -) 10 mg PO DAILY [facility] Last Admin: 06/16/18 10:12 Dose: 10 mg Apixaban (Eliquis -) 5 mg PO BID [facility] Last Admin: 06/16/18 10:12 Dose: 5 mg Atorvastatin Calcium (Lipitor -) 20 mg PO HS [facility] Last Admin: 06/15/18 22:22 Dose: 20 mg Brimonidine Tartrate (Alphagan 0.15% -) 1 drop OU BID [facility] Last Admin: 06/16/18 10:12 Dose: 1 drop Ferrous Sulfate (Feosol -) 325 mg PO DAILY [facility] Last Admin: 06/16/18 10:12 Dose: 325 mg Guaifenesin (Diabetic Tussin Dm -) 5 ml PO Q6H PRN PRN Reason: COUGH Last Admin: 06/15/18 22:22 Dose: 5 ml Hydralazine HCl (Apresoline -) 100 mg PO DAILY [facility] Last Admin: 06/16/18 10:12 Dose: 100 mg Cefepime HCl 2 gm/ Dextrose 100 mls @ 100 mls/hr IVPB Q12H [facility]; Protocol Last Admin: 06/16/18 05:56 Dose: 100 mls/hr Losartan Potassium (Cozaar -) 50 mg PO DAILY [facility] Last Admin: 06/16/18 10:12 Dose: 50 mg Ondansetron HCl (Zofran Injection) 8 mg IVPB Q8H PRN PRN Reason: NAUSEA AND/OR VOMITING Last Admin: 06/09/18 10:40 Dose: 8 mg Gen: NAD at rest Heart: RRR Lung: decreased breath sounds at the bases, few scattered rhonchi, no wheeze Abd: soft, nontender Ext: no edema Laboratory Results - last 24 hr 06/16/18 06:10 WBC 7.2 RBC 2.45 L Hgb 7.8 L Hct 23.8 L MCV 96.9 H MCH 31.7 MCHC 32.7 RDW 15.1 Plt Count 270 MPV 8.4 Absolute Neuts (auto) 5.8 Neutrophils % 80.4 Lymphocytes % 11.4 Monocytes % 5.6 Eosinophils % 1.9 Basophils % 0.7 Nucleated RBC % 0 Problem List - Problems (1) Hemoptysis Code(s): R04.2 - HEMOPTYSIS (2) Pneumonia Code(s): J18.9 - PNEUMONIA, UNSPECIFIED ORGANISM (3) Pulmonary HTN Code(s): I27.20 - PULMONARY HYPERTENSION, UNSPECIFIED (4) Asthma Code(s): J45.909 - UNSPECIFIED ASTHMA, UNCOMPLICATED A/P Bilateral Pneumonia improving (?) 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
--- NOTE | 2018-06-16 11:40 | PN ---
Progress Note (short form) - Note Progress Note: fevers resolved still with cough and blood tinged sputum produciton Vital Signs Period Temp Pulse Resp BP Sys/Red Pulse Ox Last 24 Hr 98.5 F-99.1 F 64-91 20-21 121-138/56-77 92-96 cor-rrr murmur unchanged lungs decreased bs at bases abd soft,nt ext trace edema CBC, BMP 06/16/18 06:10 06/14/18 07:30 Microbiology 06/12/18 07:45 Blood - Peripheral Venous Blood Culture - Preliminary NO GROWTH OBTAINED AFTER 96 HOURS, INCUBATION TO CONTINUE FOR 1 DAYS. 06/12/18 07:35 Blood - Peripheral Venous Blood Culture - Preliminary NO GROWTH OBTAINED AFTER 96 HOURS, INCUBATION TO CONTINUE FOR 1 DAYS. 06/12/18 09:15 Urine - Urine Clean Catch Urine Culture - Final NO GROWTH OBTAINED 06/05/18 16:00 Sputum - Expectorated AFB Smear Concentration - Final 06/05/18 16:00 Sputum - Expectorated Direct Acid Fast Bacilli Smear - Final 06/05/18 16:00 Sputum - Expectorated Mycobacterial Culture - Preliminary 06/03/18 15:25 Blood - Peripheral Venous Blood Culture - Final NO GROWTH AFTER 5 DAYS INCUBATION 06/03/18 15:25 Blood - Peripheral Venous Blood Culture - Final NO GROWTH AFTER 5 DAYS INCUBATION 06/04/18 07:56 Sputum - Expectorated AFB Smear Concentration - Final 06/04/18 07:56 Sputum - Expectorated Direct Acid Fast Bacilli Smear - Final 06/04/18 07:56 Sputum - Expectorated Mycobacterial Culture - Preliminary 06/03/18 19:00 Sputum - Expectorated Gram Stain - Final 06/03/18 19:00 Sputum - Expectorated Sputum Culture - Final Yeast Like Organism 06/03/18 10:36 Sputum - Expectorated AFB Smear Concentration - Final 06/03/18 10:36 Sputum - Expectorated Direct Acid Fast Bacilli Smear - Final 06/03/18 10:36 Sputum - Expectorated Mycobacterial Culture - Preliminary 06/03/18 19:00 Sputum - Expectorated LONNIE Preparation - Preliminary 06/03/18 19:00 Sputum - Expectorated Fungal Culture - Preliminary 06/03/18 08:12 Urine For Antigen Detection Legionella Antigen - Final 06/03/18 08:12 Urine For Antigen Detection Streptococcus pneumoniae Antigen (M - Final anca negative hiv negative positive sang cxray read as unchanged a/p fevers resolved, esr/crp unchanged, +anca- ?hydraliazine d/w Pulmonary, to consider d/c hydralazine consider repeat chest ct continue cefepime sputum cytology negative times one, sputum afb negative times three, dna probe negative times 2 bronch deferred by pulmonary f/u labs and cultures anemia- ?chronic disease murmur- echo-severe TR with pulmonary HTN +SANG- ? Problem List - Problems (1) Bilateral pulmonary infiltrates on chest x-ray Code(s): R91.8 - OTHER NONSPECIFIC ABNORMAL FINDING OF LUNG FIELD (2) Hemoptysis Code(s): R04.2 - HEMOPTYSIS (3) Anemia Code(s): D64.9 - ANEMIA, UNSPECIFIED
--- NOTE | 2018-06-16 15:46 | PN ---
Progress Note (short form) - Note Progress Note: s: no cp palps dizzy. cough is stable, dyspnea with coughing Current Medications Acetaminophen (Tylenol -) 650 mg PO Q4H PRN PRN Reason: FEVER Last Admin: 06/14/18 22:18 Dose: 650 mg Amlodipine Besylate (Norvasc -) 10 mg PO DAILY [facility] Last Admin: 06/16/18 10:12 Dose: 10 mg Apixaban (Eliquis -) 5 mg PO BID [facility] Last Admin: 06/16/18 10:12 Dose: 5 mg Atorvastatin Calcium (Lipitor -) 20 mg PO HS [facility] Last Admin: 06/15/18 22:22 Dose: 20 mg Brimonidine Tartrate (Alphagan 0.15% -) 1 drop OU BID [facility] Last Admin: 06/16/18 10:12 Dose: 1 drop Ferrous Sulfate (Feosol -) 325 mg PO DAILY [facility] Last Admin: 06/16/18 10:12 Dose: 325 mg Guaifenesin (Diabetic Tussin Dm -) 5 ml PO Q6H PRN PRN Reason: COUGH Last Admin: 06/15/18 22:22 Dose: 5 ml Cefepime HCl 2 gm/ Dextrose 100 mls @ 100 mls/hr IVPB Q12H [facility]; Protocol Last Admin: 06/16/18 05:56 Dose: 100 mls/hr Losartan Potassium (Cozaar -) 50 mg PO DAILY [facility] Last Admin: 06/16/18 10:12 Dose: 50 mg Ondansetron HCl (Zofran Injection) 8 mg IVPB Q8H PRN PRN Reason: NAUSEA AND/OR VOMITING Last Admin: 06/09/18 10:40 Dose: 8 mg Vital Signs Period Temp Pulse Resp BP Sys/Red Pulse Ox Last 24 Hr 98.1 F-99.1 F 62-91 20-21 121-138/52-77 92-96 nad no jvd rrr s1s2 no mrg cta bl, nl eff aao3 trace le edema bl, no c/c abd nt nd pos bs no jaundice diaphoresis Stress Echo 08/02: 1:48 min (SOB). 75% MPHR. BP 140 rest, no change exercise. Non-ischemic stress test by EKG. +Atrial flutter with rapid conduction transiently seen during the recovery period, converting with evidence of brief sinus node arrest and junctional escape rhythm. Echo Findings: (1) No echocardiographic evidence of inducible ischemia--SUBMAX HR. (2) Moderate to severe (eccentric) TR seen. (3) Peak TR gradient is at least 52 mmHg. (4) Resting LV intracavitary gradient of 19 mmHg, rising to 86 mmHg on post- exercise images. (No systolic anterior motion of the mitral valve is seen at rest or post- exercise.) Cardiac CTA 03/03: no L to R shunt evidence. normal pulmonary veins. RV probably normal size. 4.1 cm ascending aorta. echo 05/2018: nl lv, mod dilated rv, mod dec rv fcn, sev denise, mild-mod mr, sev tr, rvsp 40-50, mod ar, mild pr cta lungs 05/2018: no pe, +pna ecg: sr, nl intervals, old IRBBB Echo 03/02 ([facility]): nl LV size and syst fxn; EF 83%. no LVH. slight mid-cavitary gradient (8). LVOT gradient 27 resting, up to 33 with valsalva. no mitral TEJA. dd1. hi LAP. nl LA size. mild-mod RVE, normal function. mild-mod DENISE. severe TR. PASP 67. neg bubble study. Echo 04/2016: 1. The left ventricular size is normal. 2. Overall left ventricular systolic function is normal with, an EF between 65 - 70 %. 3. No regional wall motion abnormalities were noted (apex not well seen). 4. The right ventricle is normal in size and function. 5. Left atrium is mildly dilated by volume. 6. The right atrium is markedly enlarged. 7. 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 8. There is mild aortic regurgitation. 9. The tricuspid valve appears structurally normal. 10. Moderate tricuspid regurgitation present; eccentric jet present, which hugs the interatrial septum--severity may be underestimated. 11. There is moderate pulmonary hypertension. 12. The right ventricular systolic pressure, as measured by Doppler, is 61 mmHg (assuming RA pressure of 3 mmHg). 13. [id number] pulmonic regurgitation. Echo 04/30: nl LV/EF; dd1; nl RV; nl LA; mild DENISE; mild AI; eccentric TR at least moderate; nl LAP; nl RAP; mild pHTN (49); prob mild dilated ascending aorta (3.7); IASA (no PFO) Echo 2013 (at PMD): moderate pulm HTN; 56mmHg Renal dopplers 11/30: L stones, no hydro; normal size kidneys; no RA stenosis V/Q 04/2016: low prob for PE; central airway clumping/abnl ventil c/w airways dx and/or parenchymal dz PFTs 06/01: mild obstructive defect; mild decr DLCO; mild BD response a/p: 72 f hx pulm htn, htn, hld, here with sob, cough. sob, cough: - PNA - sxs improving - pulm, ID following Anemia - s/p 1 unit PRBC - would continue eliquis due to high [id number] Paroxysmal atrial fibrillation: - not on av bushra blockers due to h/o junctional rhythm, sinus tessie - on eliquis due to [id number] of 4, would continue htn: -hydralazine stopped due to +anca, uptitrating ARB hld: -cont statin Pulmonary hypertension, rv dysfunction, sev tr: -chronic condition for patient. she has declined RHC cath/eval by pulm htn specialist numerous times in past. says she will consider it, outpt f/u with Dr. Gutierres - patient will go home with O2 by MI
[2018-06-16] MEDS: LACTOBACILLUS ACIDOPHILUS 1 TABLET PO SCH (18:13)
--- NOTE | 2018-06-16 18:22 | PN ---
Teaching Attending Note Name of Resident: Elsy Johnston ATTENDING PHYSICIAN STATEMENT I saw and evaluated the patient. I reviewed the resident's note and discussed the case with the resident. I agree with the resident's findings and plan as documented with exceptions below. SUBJECTIVE: Patient seen and examined, No new complaints. Scant hemoptysis but improved. OBJECTIVE: Vital Signs Period Temp Pulse Resp BP Sys/Red Pulse Ox Last 24 Hr 98.1 F-99.1 F 62-91 20-21 121-138/52-77 92-96 Intake & Output 06/13/18 06/14/18 06/15/18 06/16/18 23:59 23:59 23:59 23:59 Intake Total 1250 1050 1200 650 Balance 1250 1050 1200 650 General: sitting in chair in no acute distress CVS:S1S2 regular Chest: improved rales and air entry Abdomen:Soft, NT, ND, positive bowel sounds Extremities: no edema Active Medications Acetaminophen (Tylenol -) 650 mg PO Q4H PRN PRN Reason: FEVER Last Admin: 06/14/18 22:18 Dose: 650 mg Amlodipine Besylate (Norvasc -) 10 mg PO DAILY [facility] Last Admin: 06/16/18 10:12 Dose: 10 mg Apixaban (Eliquis -) 5 mg PO BID [facility] Last Admin: 06/16/18 10:12 Dose: 5 mg Atorvastatin Calcium (Lipitor -) 20 mg PO HS [facility] Last Admin: 06/15/18 22:22 Dose: 20 mg Brimonidine Tartrate (Alphagan 0.15% -) 1 drop OU BID [facility] Last Admin: 06/16/18 10:12 Dose: 1 drop Ferrous Sulfate (Feosol -) 325 mg PO DAILY [facility] Last Admin: 06/16/18 10:12 Dose: 325 mg Guaifenesin (Diabetic Tussin Dm -) 5 ml PO Q6H PRN PRN Reason: COUGH Last Admin: 06/15/18 22:22 Dose: 5 ml Cefepime HCl 2 gm/ Dextrose 100 mls @ 100 mls/hr IVPB Q12H [facility]; Protocol Last Admin: 06/16/18 18:13 Dose: 100 mls/hr Lactobacillus Acidophilus (Bacid -) 1 tab PO DAILY [facility] Last Admin: 06/16/18 18:13 Dose: 1 tab Losartan Potassium (Cozaar -) 50 mg PO DAILY [facility] Last Admin: 06/16/18 10:12 Dose: 50 mg Ondansetron HCl (Zofran Injection) 8 mg IVPB Q8H PRN PRN Reason: NAUSEA AND/OR VOMITING Last Admin: 06/09/18 10:40 Dose: 8 mg Laboratory Results - last 24 hr 06/09/18 06/16/18 05:30 06:10 WBC 7.2 RBC 2.45 L Hgb 7.8 L Hct 23.8 L MCV 96.9 H MCH 31.7 MCHC 32.7 RDW 15.1 Plt Count 270 MPV 8.4 Absolute Neuts (auto) 5.8 Neutrophils % 80.4 Lymphocytes % 11.4 Monocytes % 5.6 Eosinophils % 1.9 Basophils % 0.7 Nucleated RBC % 0 Beta-(1,3)-D-Glucan 60 Microbiology 06/12/18 07:45 Blood - Peripheral Venous Blood Culture - Preliminary NO GROWTH OBTAINED AFTER 96 HOURS, INCUBATION TO CONTINUE FOR 1 DAYS. 06/12/18 07:35 Blood - Peripheral Venous Blood Culture - Preliminary NO GROWTH OBTAINED AFTER 96 HOURS, INCUBATION TO CONTINUE FOR 1 DAYS. 06/12/18 09:15 Urine - Urine Clean Catch Urine Culture - Final NO GROWTH OBTAINED 06/05/18 16:00 Sputum - Expectorated AFB Smear Concentration - Final 06/05/18 16:00 Sputum - Expectorated Direct Acid Fast Bacilli Smear - Final 06/05/18 16:00 Sputum - Expectorated Mycobacterial Culture - Preliminary 06/03/18 15:25 Blood - Peripheral Venous Blood Culture - Final NO GROWTH AFTER 5 DAYS INCUBATION 06/03/18 15:25 Blood - Peripheral Venous Blood Culture - Final NO GROWTH AFTER 5 DAYS INCUBATION 06/04/18 07:56 Sputum - Expectorated AFB Smear Concentration - Final 06/04/18 07:56 Sputum - Expectorated Direct Acid Fast Bacilli Smear - Final 06/04/18 07:56 Sputum - Expectorated Mycobacterial Culture - Preliminary 06/03/18 19:00 Sputum - Expectorated Gram Stain - Final 06/03/18 19:00 Sputum - Expectorated Sputum Culture - Final Yeast Like Organism 06/03/18 10:36 Sputum - Expectorated AFB Smear Concentration - Final 06/03/18 10:36 Sputum - Expectorated Direct Acid Fast Bacilli Smear - Final 06/03/18 10:36 Sputum - Expectorated Mycobacterial Culture - Preliminary 06/03/18 19:00 Sputum - Expectorated LONNIE Preparation - Preliminary 06/03/18 19:00 Sputum - Expectorated Fungal Culture - Preliminary 06/03/18 08:12 Urine For Antigen Detection Legionella Antigen - Final 06/03/18 08:12 Urine For Antigen Detection Streptococcus pneumoniae Antigen (M - Final ASSESSMENT AND PLAN: 72yo F wtih PMH DM which is diet controlled, HTN, AFib on eliquis, asthma presented to the ER with hemoptysis and cough -Hemoptysis -Acute respiratory distress -Multifocal PNA, r/o vasculitis, TB/fungal illness -Hyponatremia -Hypokalemia -Anemia, iron deficiency/chronic blood loss +/- anemia of chronic disease -Paroxysmal Atrial fibrillation on eliquis -Diet controlled DM, A1c 5.6 -HTN Plan: Recurrent fevers on 06/14, improved. CLinically improved. Discussed with Dr. Mckeon, On cefepime, d/c on augmentin in 24 hours if no concerns. Discussed with Dr. Garcia, d/c hydralazine given concerns for drug induced lupus. Immunology studies noted, follow up Anti-histone. Repeat CXR overall unchanged. Blood cx neg so far. U/a noted, some hematuria. CT A/p non contrast results noted, mild thickening rectosigmoid, but no tenderness or GI symptoms. ?inflammatory process. h/h noted, s/p venofer. s/p 1 unit PRBC 06/10 with appropriate response. Hemoptysis improved. Monitor CBC Continue eliquis with caution. Sputum cytology neg for malignancy sputum afb negative times 3 with 2 mtb probes negative Off afb isolation Replete lytes prn. HR controlled, not on AVN blockers given h/o junctional rhythm/Sinus bradycardia on the same. ISS,diabetic diet Continue losartan. Titrate up as needed. DVTPPX eliquis Needs home oxygen on dc. discussed with social work. Dipso dc in 24hours on augmentin if no new concerns. Plan discussed with patient in detail, all questions answered.
--- NOTE | 2018-06-16 19:30 | PN ---
Physical Exam: SUBJECTIVE: Patient seen and examined at bedside this morning. No acute events overnight. Patient still reports scant hemoptysis and uses 2L NC. OBJECTIVE: Vital Signs Period Temp Pulse Resp BP Sys/Red Pulse Ox Last 24 Hr 98.1 F-99.1 F 62-91 18-21 121-138/52-77 92-96 GENERAL: The patient is awake, alert, and fully oriented, on 2L NC HEAD: Normal with no signs of trauma. EYES: PERRLA, EOMI, sclera anicteric, conjunctiva clear. ENT: Ears normal, nares patent, oropharynx clear without exudates, moist mucous membranes. NECK: Trachea midline, full range of motion, supple. LUNGS: Clear to auscultation bilaterally HEART: Regular rate and rhythm, + systolic murmur ABDOMEN: Soft, +tenderness on deep palpation at LUQ, nondistended, normoactive bowel sounds. EXTREMITIES: 2+ pulses, warm, well-perfused, no edema. NEUROLOGICAL: Cranial nerves II through XII grossly intact. Normal speech, normal gait. PSYCH: Normal mood, normal affect. SKIN: Warm, dry, normal turgor, no rashes or lesions noted Laboratory Results - last 24 hr 06/09/18 06/16/18 05:30 06:10 WBC 7.2 RBC 2.45 L Hgb 7.8 L Hct 23.8 L MCV 96.9 H MCH 31.7 MCHC 32.7 RDW 15.1 Plt Count 270 MPV 8.4 Absolute Neuts (auto) 5.8 Neutrophils % 80.4 Lymphocytes % 11.4 Monocytes % 5.6 Eosinophils % 1.9 Basophils % 0.7 Nucleated RBC % 0 Beta-(1,3)-D-Glucan 60 Active Medications Generic Name Dose Route Start Last Admin Trade Name Freq PRN Reason Stop Dose Admin Acetaminophen 650 mg 06/10/18 11:43 06/14/18 22:18 Tylenol - PO 650 mg Q4H PRN Administration FEVER Amlodipine Besylate 10 mg 06/03/18 10:00 06/16/18 10:12 Norvasc - PO 10 mg DAILY [facility] Administration Apixaban 5 mg 06/02/18 22:00 06/16/18 10:12 Eliquis - PO 5 mg BID [facility] Administration Atorvastatin Calcium 20 mg 06/02/18 22:00 06/15/18 22:22 Lipitor - PO 20 mg HS [facility] Administration Brimonidine Tartrate 1 drop 06/02/18 22:00 06/16/18 10:12 Alphagan 0.15% - OU 1 drop BID [facility] Administration Ferrous Sulfate 325 mg 06/06/18 11:30 06/16/18 10:12 Feosol - PO 325 mg DAILY [facility] Administration Guaifenesin 5 ml 06/08/18 12:49 06/15/18 22:22 Diabetic Tussin Dm - PO 5 ml Q6H PRN Administration COUGH Cefepime HCl 2 gm/ Dextrose 100 mls @ 100 mls/hr 06/12/18 18:30 06/16/18 18: 13 IVPB 100 mls/hr Q12H [facility] Administration Protocol Lactobacillus Acidophilus 1 tab 06/16/18 17:45 06/16/18 18:13 Bacid - PO 1 tab DAILY [facility] Administration Losartan Potassium 50 mg 06/06/18 10:00 06/16/18 10:12 Cozaar - PO 50 mg DAILY [facility] Administration Ondansetron HCl 8 mg 06/09/18 10:08 06/09/18 10:40 Zofran Injection IVPB 8 mg Q8H PRN Administration NAUSEA AND/OR VOMITING Imaging Chest/Thorax CTA No evidence of pulmonary artery emboli. Bilateral patchy infiltrates with consolidates within the right upper lobe which appear unchanged form prior imaging. Chest CT without contrast In comparison to prior studies note is made of interval development of extensive bilateral upper lobe alveolar infiltrates, right more than left. Smaller bilateral lower lobe infiltrates are also seen. Cardiomegaly. Probably dilatation of the main pulmonary artery suggestive of increased pulmonary arterial pressure. Chest X-ray Extremely abnormal CXR with new pulmonary findings and persistently enlarged heart. Echo Clinical correlation is recommended. Right ventricular systolic pressure is elevated at 40-50 mmHg. There is severe tricuspid regurgitation. The right ventricle is moderately dilated. The right ventricular systolic function is moderately reduced. The right atrium is severely dilated. E/A reversal consistent with but not diagnostic of poor LV compliance. The left ventricular wall motion is normal. The left ventricular EF is normal. The left ventricular size, thickness, and function are normal. Chest X-ray (06/07/18) - Bilateral upper lobe predominant pneumonia Chest X-ray (06/08/18) - Decreased bilateral upper lobe consolidative opacities compatible with improving pneumonia. Chest X-ray (06/11/18) - Resolving bilateral upper lobe consolidation. No pleural effusion or pneumothorax is seen. Unchanged contour of the cardiac silhouette. CT Abdomen/Pelvis w/o contrast Paucity of fat and lack of IV contrast limiting this exam.Limited visualization of the pancreas as well as the mesentery.2 cm left renal cyst.There is no evidence of small bowel obstruction.Thickening of the rectosigmoid junction wall for which correlation with physical exam is needed.Moderate cardiomegaly.Interval partial clearing of previously visualized patchy airspace opacities in the lower lung. Microbiology 06/03/18 15:25 Blood - Peripheral Venous Blood Culture - Preliminary NO GROWTH OBTAINED AFTER 48 HOURS, INCUBATION TO CONTINUE FOR 3 DAYS. 06/03/18 15:25 Blood - Peripheral Venous Blood Culture - Preliminary NO GROWTH OBTAINED AFTER 48 HOURS, INCUBATION TO CONTINUE FOR 3 DAYS. 06/03/18 19:00 Sputum - Expectorated Gram Stain - Final 06/03/18 19:00 Sputum - Expectorated Sputum Culture - Final Yeast Like Organism 06/03/18 10:36 Sputum - Expectorated AFB Smear Concentration - Final 06/03/18 10:36 Sputum - Expectorated Direct Acid Fast Bacilli Smear - Final 06/03/18 10:36 Sputum - Expectorated Mycobacterial Culture - Preliminary 06/04/18 07:56 Sputum - Expectorated AFB Smear Concentration - Preliminary 06/04/18 07:56 Sputum - Expectorated Direct Acid Fast Bacilli Smear - Final 06/04/18 07:56 Sputum - Expectorated Mycobacterial Culture - Preliminary 06/03/18 19:00 Sputum - Expectorated LONNIE Preparation - Preliminary 06/03/18 19:00 Sputum - Expectorated Fungal Culture - Preliminary 06/03/18 08:12 Urine For Antigen Detection Legionella Antigen - Final 06/03/18 08:12 Urine For Antigen Detection Streptococcus pneumoniae Antigen M - Final ASSESSMENT/PLAN: Patient is a 72 year old female who presented with worsening dyspnea on exertion and hemoptysis for about 3 weeks. #Hemoptysis and PANIAGUA: likely 2/2 CAP -No episodes of fever overnight. -may be 2/2 reactive inflammation? -Blood Cx, UA/Urine Cx negative. -CXR - resolving bilateral upper lobe consolidation. -AFB smear negative, AFB Sputum cultures negative x3. -Quantiferon TB test: Indeterminate. -Fungal culture - negative -c-ANCA, PR3, p-ANCA, MPO Ab negative. 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 -Rheumatology (Dr. Malave) consulted. Recommendations appreciated. -Likely 2/2 to pulmonary HTN and PNA; can not totally rule out SLE -anti-histone, complement, anti-dsDNA ordered. -Pulmonary (Dr. Garcia) consulted. Recommendations appreciated: -Duoneb PRN -Continue antibiotics. -Advised patient to monitor/quantify hemoptysis at home -Will need outpatient CT chest in 6 weeks to ensure resolution of infiltrate. -Stop Hydralazine and can up titrate ARB -Bronchoscopy deferred as patient is clinically and radiographically improving. -ID (Dr. Mckeon) consulted. Recommendations appreciated. -On cefepime. -Can switch to PO augmentin for another week at home. -Probiotics for a month -Follow up [facility] per pulmonary. -Robitussin PRN for cough. #Hematuria on UA -Blood 3+, WBC 48 -CT scan of abdomen and pelvis done - Paucity of fat and lack of IV contrast limiting this exam.Limited visualization of the pancreas as well as the mesentery.2 cm left renal cyst.There is no evidence of small bowel obstruction.Thickening of the rectosigmoid junction wall for which correlation with physical exam is needed.Moderate cardiomegaly.Interval partial clearing of previously visualized patchy airspace opacities in the lower lung. #Normocytic Anemia -Possibly secondary to lung pathology and inflammation. -Hgb today 7.8 -Stool guaiac -negative -Iron 33, TIBC 218, Iron saturation 15, Ferritin 68.4 -Retic ct - 2.56 -Ferrous sulfate started. -Continue Eliquis as patient is high CHADSVaSC risk score. -Will monitor H/H. Transfuse as necessary. #Pulmonary Hypertension -Echo -RV systolic pressure elevated at 40-50 mmHg. Severe TR. RV is moderately dilated. RV systolic function is moderately reduced. RA is severe dilated. -Cardiology (Dr. Gutierres) consulted. Recommendations appreciated: -Chronic condition for patient. She has declined right heart cath/eval by pulmonary HTN specialist numerous times in the past. -Says she will consider it as outpatient follow-up. #Hyponatremia: resolved -Likely SIADH from lung pathology and possible hyperglycemia #Hypokalemia: resolved #NIDDMII -Patient was previously on Januvia and Metformin. -Reports that her primary care discontinued all her medications and is currently just on diet and exercise. -A1C - 5.6 -BGM and ISS ACHS #HTN -Continue Amlodipine 10mg daily, and Increase Losartan to 50mg BID -discontinue Hydralazine --(?) hydralazine induced lupus -May increase Losartan to 100mg BID. -Continue to monitor BP #HLD -Continue Lipitor 20mg HS -Lipid panel ordered #Atrial Fibrillation -Rate controlled -Continue Eliquis 5mg BID. CHADSVaSC risk score 4. #F/E/N -Not on any standing fluids. -Encourage increased oral fluid intake. -Electrolytes wnl. -Sodium restricted/Diabetic diet. #Prophylaxis -Patient on Eliquis #Disposition -Full code -Will take O2 at home, 2L NC -For possible d/c in the AM Visit type - Emergency Visit Emergency Visit: Yes ED Registration Date: 06/02/18 Care time: The patient presented to the Emergency Department on the above date and was hospitalized for further evaluation of their emergent condition. - New Patient This patient is new to me today: Yes Date on this admission: 06/16/18 - Critical Care Critical Care patient: No
[2018-06-16] MEDS: ATORVASTATIN CA 20 MG TABLET (FP) PO SCH (21:09)
[2018-06-16] MEDS: guaiFENesin/D-M SUGAR-FREE/ACLHOL-FREE 118 ML BOTTLE PO PRN (21:15)
[2018-06-17] MEDS: CEFEPIME 2 GM in DEXTROSE 5%-WATER 100 ML IVPB SCH (05:33)
[2018-06-17 07:19] LABS: HEMATOCRIT 22.9 % (32.4-45.2); HEMOGLOBIN 7.5 GM/dL (10.7-15.3); MCH 31.7 pg (25.7-33.7); MCHC 32.6 g/dl (32.0-36.0); MEAN CELL VOLUME 97.4 fl (80-96); MEAN PLT VOLUME 8.7 fl (7.5-11.1); PLATELET COUNT 253 K/MM3 (134-434); RBC 2.35 M/mm3 (3.60-5.2); RDW 15.1 % (11.6-15.6); WHITE BLOOD COUNT 6.9 K/mm3 (4.0-10.0)
[2018-06-17] MEDS ORDERED: PT OWN MED DRAWER 7, Y5N ONE (09:38)
[2018-06-17] MEDS: FERROUS SO4 325 MG TABLET (FP) PO SCH (09:43)
[2018-06-17] MEDS: APIXABAN 5 MG TABLET PO SCH (09:43)
[2018-06-17] MEDS: LACTOBACILLUS ACIDOPHILUS 1 TABLET PO SCH (09:43)
[2018-06-17] MEDS: amLODIPine BESYLATE 10 MG TABLET (FP) PO SCH (09:43)
[2018-06-17] MEDS: LOSARTAN POTASSIUM 50 MG TABLET (FP) PO SCH (09:43)
[2018-06-17] MEDS: BRIMONIDINE TARTRATE 0.15% OPHTHALMIC 5 ML BOTTLE OU SCH (09:45)
--- NOTE | 2018-06-17 11:22 | PN ---
Progress Note (short form) - Note Progress Note: s: no cp palps dizzy. stable cough Current Medications Acetaminophen (Tylenol -) 650 mg PO Q4H PRN PRN Reason: FEVER Last Admin: 06/14/18 22:18 Dose: 650 mg Amlodipine Besylate (Norvasc -) 10 mg PO DAILY [facility] Last Admin: 06/17/18 09:43 Dose: 10 mg Apixaban (Eliquis -) 5 mg PO BID [facility] Last Admin: 06/17/18 09:43 Dose: 5 mg Atorvastatin Calcium (Lipitor -) 20 mg PO HS [facility] Last Admin: 06/16/18 21:09 Dose: 20 mg Brimonidine Tartrate (Alphagan 0.15% -) 1 drop OU BID [facility] Last Admin: 06/17/18 09:45 Dose: 1 drop Ferrous Sulfate (Feosol -) 325 mg PO DAILY [facility] Last Admin: 06/17/18 09:43 Dose: 325 mg Guaifenesin (Diabetic Tussin Dm -) 5 ml PO Q6H PRN PRN Reason: COUGH Last Admin: 06/16/18 21:15 Dose: 5 ml Cefepime HCl 2 gm/ Dextrose 100 mls @ 100 mls/hr IVPB Q12H [facility]; Protocol Last Admin: 06/17/18 05:33 Dose: 100 mls/hr Lactobacillus Acidophilus (Bacid -) 1 tab PO DAILY [facility] Last Admin: 06/17/18 09:43 Dose: 1 tab Losartan Potassium (Cozaar -) 50 mg PO DAILY [facility] Last Admin: 06/17/18 09:43 Dose: 50 mg Ondansetron HCl (Zofran Injection) 8 mg IVPB Q8H PRN PRN Reason: NAUSEA AND/OR VOMITING Last Admin: 06/09/18 10:40 Dose: 8 mg Vital Signs Period Temp Pulse Resp BP Sys/Red Pulse Ox Last 24 Hr 98.1 F-99.2 F 62-70 18-20 127-148/52-73 92 nad no jvd rrr s1s2 no mrg cta bl, nl eff aao3 trace le edema bl, no c/c abd nt nd pos bs no jaundice diaphoresis Stress Echo 08/02: 1:48 min (SOB). 75% MPHR. BP 140 rest, no change exercise. Non-ischemic stress test by EKG. +Atrial flutter with rapid conduction transiently seen during the recovery period, converting with evidence of brief sinus node arrest and junctional escape rhythm. Echo Findings: (1) No echocardiographic evidence of inducible ischemia--SUBMAX HR. (2) Moderate to severe (eccentric) TR seen. (3) Peak TR gradient is at least 52 mmHg. (4) Resting LV intracavitary gradient of 19 mmHg, rising to 86 mmHg on post- exercise images. (No systolic anterior motion of the mitral valve is seen at rest or post- exercise.) Cardiac CTA 03/03: no L to R shunt evidence. normal pulmonary veins. RV probably normal size. 4.1 cm ascending aorta. echo 05/2018: nl lv, mod dilated rv, mod dec rv fcn, sev denise, mild-mod mr, sev tr, rvsp 40-50, mod ar, mild pr cta lungs 05/2018: no pe, +pna ecg: sr, nl intervals, old IRBBB Echo 03/02 ([facility]): nl LV size and syst fxn; EF 83%. no LVH. slight mid-cavitary gradient (8). LVOT gradient 27 resting, up to 33 with valsalva. no mitral TEJA. dd1. hi LAP. nl LA size. mild-mod RVE, normal function. mild-mod DENISE. severe TR. PASP 67. neg bubble study. Echo 04/2016: 1. The left ventricular size is normal. 2. Overall left ventricular systolic function is normal with, an EF between 65 - 70 %. 3. No regional wall motion abnormalities were noted (apex not well seen). 4. The right ventricle is normal in size and function. 5. Left atrium is mildly dilated by volume. 6. The right atrium is markedly enlarged. 7. 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 8. There is mild aortic regurgitation. 9. The tricuspid valve appears structurally normal. 10. Moderate tricuspid regurgitation present; eccentric jet present, which hugs the interatrial septum--severity may be underestimated. 11. There is moderate pulmonary hypertension. 12. The right ventricular systolic pressure, as measured by Doppler, is 61 mmHg (assuming RA pressure of 3 mmHg). 13. [id number] pulmonic regurgitation. Echo 04/30: nl LV/EF; dd1; nl RV; nl LA; mild DENISE; mild AI; eccentric TR at least moderate; nl LAP; nl RAP; mild pHTN (49); prob mild dilated ascending aorta (3.7); IASA (no PFO) Echo 2013 (at [facility]D): moderate pulm HTN; 56mmHg Renal dopplers 11/30: L stones, no hydro; normal size kidneys; no RA stenosis V/Q 04/2016: low prob for PE; central airway clumping/abnl ventil c/w airways dx and/or parenchymal dz PFTs 06/01: mild obstructive defect; mild decr DLCO; mild BD response a/p: 72 f hx pulm htn, htn, hld, here with sob, cough. sob, cough: - PNA - sxs improving - pulm, ID following Anemia - s/p 1 unit PRBC - would continue eliquis due to high [id number] Paroxysmal atrial fibrillation: - not on av bushra blockers due to h/o junctional rhythm, sinus tessie - on eliquis due to [id number] of 4, would continue htn: -hydralazine stopped due to +anca, uptitrating ARB hld: -cont statin Pulmonary hypertension, rv dysfunction, sev tr: -chronic condition for patient. she has declined RHC cath/eval by pulm htn specialist numerous times in past. says she will consider it, outpt f/u with Dr. Gutierres - patient will go home with O2 by [place]
--- NOTE | 2018-06-17 12:00 | PN ---
Progress Note (short form) - Note Progress Note: OOB to chair. Overall feeling better. Still with some residual blood streaked sputum. Had a small amount of epistaxis this AM. Intake & Output 06/14/18 06/15/18 06/16/18 06/17/18 23:59 23:59 23:59 23:59 Intake Total 1050 1200 650 100 Balance 1050 1200 650 100 Last Vital Signs Temp Pulse Resp BP Pulse Ox 99.2 F 69 20 148/71 92 L 06/17/18 06:33 06/17/18 06:33 06/17/18 06:33 06/17/18 06:33 06/16/18 22:00 Active Medications Acetaminophen (Tylenol -) 650 mg PO Q4H PRN PRN Reason: FEVER Last Admin: 06/14/18 22:18 Dose: 650 mg Amlodipine Besylate (Norvasc -) 10 mg PO DAILY [facility] Last Admin: 06/17/18 09:43 Dose: 10 mg Apixaban (Eliquis -) 5 mg PO BID [facility] Last Admin: 06/17/18 09:43 Dose: 5 mg Atorvastatin Calcium (Lipitor -) 20 mg PO HS [facility] Last Admin: 06/16/18 21:09 Dose: 20 mg Brimonidine Tartrate (Alphagan 0.15% -) 1 drop OU BID [facility] Last Admin: 06/17/18 09:45 Dose: 1 drop Ferrous Sulfate (Feosol -) 325 mg PO DAILY [facility] Last Admin: 06/17/18 09:43 Dose: 325 mg Guaifenesin (Diabetic Tussin Dm -) 5 ml PO Q6H PRN PRN Reason: COUGH Last Admin: 06/16/18 21:15 Dose: 5 ml Cefepime HCl 2 gm/ Dextrose 100 mls @ 100 mls/hr IVPB Q12H [facility]; Protocol Last Admin: 06/17/18 05:33 Dose: 100 mls/hr Lactobacillus Acidophilus (Bacid -) 1 tab PO DAILY [facility] Last Admin: 06/17/18 09:43 Dose: 1 tab Losartan Potassium (Cozaar -) 50 mg PO DAILY [facility] Last Admin: 06/17/18 09:43 Dose: 50 mg Ondansetron HCl (Zofran Injection) 8 mg IVPB Q8H PRN PRN Reason: NAUSEA AND/OR VOMITING Last Admin: 06/09/18 10:40 Dose: 8 mg Gen: NAD at rest Heart: RRR Lung: decreased breath sounds at the bases, few scattered rhonchi, no wheeze Abd: soft, nontender Ext: no edema Laboratory Results - last 24 hr 06/09/18 06/17/18 05:30 06:00 WBC 6.9 RBC 2.35 L Hgb 7.5 L Hct 22.9 L MCV 97.4 H MCH 31.7 MCHC 32.6 RDW 15.1 Plt Count 253 MPV 8.7 Beta-(1,3)-D-Glucan 60 Problem List - Problems (1) Hemoptysis Code(s): R04.2 - HEMOPTYSIS (2) Pneumonia Code(s): J18.9 - PNEUMONIA, UNSPECIFIED ORGANISM (3) Pulmonary HTN Code(s): I27.20 - PULMONARY HYPERTENSION, UNSPECIFIED (4) Asthma Code(s): J45.909 - UNSPECIFIED ASTHMA, UNCOMPLICATED A/P Bilateral Pneumonia improving (?) 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
--- NOTE | 2018-06-17 14:29 | PN ---
Teaching Attending Note Name of Resident: Elsy Johnston ATTENDING PHYSICIAN STATEMENT I saw and evaluated the patient. I reviewed the resident's note and discussed the case with the resident. I agree with the resident's findings and plan as documented. SUBJECTIVE:continues to have cough but overall improved. scant hemoptysis. denies Cp, fever, chills, N/V/C/D OBJECTIVE: Last Vital Signs Temp Pulse Resp BP Pulse Ox 99.2 F 80 19 137/86 100 06/17/18 09:00 06/17/18 09:00 06/17/18 09:00 06/17/18 09:00 06/17/18 09:00 General NAD Lungs CTA B/L no wheezing/rales/rhonchi ASSESSMENT AND PLAN: 72yo F wtih PMH DM which is diet controlled, HTN, AFib on eliquis, asthma presented to the ER with hemoptysis and cough 1. Hemoptysis- possible irritation from frequent coughing however concern for TB. now mostly resolved. Hgb stable. 2. Acute hypoxic respiratory distress-due to PNA. clinically improved. switch cefepime to augmentin for 7days. qualified for Home o2. will need repeat CT chest in 4-6 weeks. pulm f/u as outpatient. 3. Hyponatremia- resolved 4. hypokalemia- resolved 5. Anemia-+iron deficiency and acute blood loss anemia with anemia of chronic disease. unknown baseline. Hgb stable.cont po iron. monitor Hgb. normal transfusion thresholds. 6. afib- rate controlled. cont current management. on eliquis. 7. DM- diet controlled.A1c 5.6 cont diet control 8. HTN- controlled. cont current management 9. DVT ppx- eliquis. 10. d/c home
[2018-06-17 14:32] VITALS: BP 115/64; PULSE 61; TEMP 99
--- NOTE | 2018-06-17 16:21 | DS ---
Physical Exam: SUBJECTIVE: Patient seen and examined at bedside this morning. No acute events overnight. Patient has no new complaints. OBJECTIVE: Vital Signs Period Temp Pulse Resp BP Sys/Red Pulse Ox Last 24 Hr 98.5 F-99.2 F 61-80 18-20 115-148/64-86 92-100 PHYSICAL EXAM GENERAL: The patient is awake, alert, and fully oriented, on 2L NC HEAD: Normal with no signs of trauma. EYES: PERRLA, EOMI, sclera anicteric, conjunctiva clear. ENT: Ears normal, nares patent, oropharynx clear without exudates, moist mucous membranes. NECK: Trachea midline, full range of motion, supple. LUNGS: Clear to auscultation bilaterally HEART: Regular rate and rhythm, + systolic murmur ABDOMEN: Soft, +tenderness on deep palpation at LUQ, nondistended, normoactive bowel sounds. EXTREMITIES: 2+ pulses, warm, well-perfused, no edema. NEUROLOGICAL: Cranial nerves II through XII grossly intact. Normal speech, normal gait. PSYCH: Normal mood, normal affect. SKIN: Warm, dry, normal turgor, no rashes or lesions noted LABS Laboratory Results - last 24 hr 06/17/18 06:00 WBC 6.9 RBC 2.35 L Hgb 7.5 L Hct 22.9 L MCV 97.4 H MCH 31.7 MCHC 32.6 RDW 15.1 Plt Count 253 MPV 8.7 Imaging Chest/Thorax CTA No evidence of pulmonary artery emboli. Bilateral patchy infiltrates with consolidates within the right upper lobe which appear unchanged form prior imaging. Chest CT without contrast In comparison to prior studies note is made of interval development of extensive bilateral upper lobe alveolar infiltrates, right more than left. Smaller bilateral lower lobe infiltrates are also seen. Cardiomegaly. Probably dilatation of the main pulmonary artery suggestive of increased pulmonary arterial pressure. Chest X-ray Extremely abnormal CXR with new pulmonary findings and persistently enlarged heart. Echo Clinical correlation is recommended. Right ventricular systolic pressure is elevated at 40-50 mmHg. There is severe tricuspid regurgitation. The right ventricle is moderately dilated. The right ventricular systolic function is moderately reduced. The right atrium is severely dilated. E/A reversal consistent with but not diagnostic of poor LV compliance. The left ventricular wall motion is normal. The left ventricular EF is normal. The left ventricular size, thickness, and function are normal. Chest X-ray (06/07/18) - Bilateral upper lobe predominant pneumonia Chest X-ray (06/08/18) - Decreased bilateral upper lobe consolidative opacities compatible with improving pneumonia. Chest X-ray (06/11/18) - Resolving bilateral upper lobe consolidation. No pleural effusion or pneumothorax is seen. Unchanged contour of the cardiac silhouette. CT Abdomen/Pelvis w/o contrast Paucity of fat and lack of IV contrast limiting this exam.Limited visualization of the pancreas as well as the mesentery.2 cm left renal cyst.There is no evidence of small bowel obstruction.Thickening of the rectosigmoid junction wall for which correlation with physical exam is needed.Moderate cardiomegaly.Interval partial clearing of previously visualized patchy airspace opacities in the lower lung. Microbiology 06/03/18 15:25 Blood - Peripheral Venous Blood Culture - Preliminary NO GROWTH OBTAINED AFTER 48 HOURS, INCUBATION TO CONTINUE FOR 3 DAYS. 06/03/18 15:25 Blood - Peripheral Venous Blood Culture - Preliminary NO GROWTH OBTAINED AFTER 48 HOURS, INCUBATION TO CONTINUE FOR 3 DAYS. 06/03/18 19:00 Sputum - Expectorated Gram Stain - Final 06/03/18 19:00 Sputum - Expectorated Sputum Culture - Final Yeast Like Organism 06/03/18 10:36 Sputum - Expectorated AFB Smear Concentration - Final 06/03/18 10:36 Sputum - Expectorated Direct Acid Fast Bacilli Smear - Final 06/03/18 10:36 Sputum - Expectorated Mycobacterial Culture - Preliminary 06/04/18 07:56 Sputum - Expectorated AFB Smear Concentration - Preliminary 06/04/18 07:56 Sputum - Expectorated Direct Acid Fast Bacilli Smear - Final 06/04/18 07:56 Sputum - Expectorated Mycobacterial Culture - Preliminary 06/03/18 19:00 Sputum - Expectorated LONNIE Preparation - Preliminary 06/03/18 19:00 Sputum - Expectorated Fungal Culture - Preliminary 06/03/18 08:12 Urine For Antigen Detection Legionella Antigen - Final 06/03/18 08:12 Urine For Antigen Detection Streptococcus pneumoniae Antigen M - Final HOSPITAL COURSE: Date of Admission:06/02/18 Date of Discharge: 06/17/18 Patient is a 72 year old female who presented with worsening dyspnea on exertion and hemoptysis for about 3 weeks. #Hemoptysis and PANIAGUA: likely 2/2 CAP -No episodes of fever overnight. -may be 2/2 reactive inflammation? -Blood Cx, UA/Urine Cx negative. -CXR - resolving bilateral upper lobe consolidation. -AFB smear negative, AFB Sputum cultures negative x3. -Quantiferon TB test: Indeterminate. -Fungal culture - negative -c-ANCA, PR3, p-ANCA, MPO Ab negative. 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 -Rheumatology (Dr. Malave) consulted. Recommendations appreciated. -Likely 2/2 to pulmonary HTN and PNA; can not totally rule out SLE -anti-histone, complement, anti-dsDNA ordered. -Pulmonary (Dr. Garcia) consulted. Recommendations appreciated: -Duoneb PRN -Continue antibiotics. -Advised patient to monitor/quantify hemoptysis at home -Will need outpatient CT chest in 6 weeks to ensure resolution of infiltrate. -Stop Hydralazine and can up titrate ARB -Bronchoscopy deferred as patient is clinically and radiographically improving. -ID (Dr. Mckeon) consulted. Recommendations appreciated. -On cefepime. -Can switch to PO augmentin for another week at home. -Probiotics for a month -Follow up [facility] per pulmonary. -Robitussin PRN for cough. #Hematuria on UA -Blood 3+, WBC 48 -CT scan of abdomen and pelvis done - Paucity of fat and lack of IV contrast limiting this exam.Limited visualization of the pancreas as well as the mesentery.2 cm left renal cyst.There is no evidence of small bowel obstruction.Thickening of the rectosigmoid junction wall for which correlation with physical exam is needed.Moderate cardiomegaly.Interval partial clearing of previously visualized patchy airspace opacities in the lower lung. #Normocytic Anemia -Possibly secondary to lung pathology and inflammation. -Hgb today 7.8 -Stool guaiac -negative -Iron 33, TIBC 218, Iron saturation 15, Ferritin 68.4 -Retic ct - 2.56 -Ferrous sulfate started. -Continue Eliquis as patient is high CHADSVaSC risk score. -Will monitor H/H. Transfuse as necessary. #Pulmonary Hypertension -Echo -RV systolic pressure elevated at 40-50 mmHg. Severe TR. RV is moderately dilated. RV systolic function is moderately reduced. RA is severe dilated. -Cardiology (Dr. Gutierres) consulted. Recommendations appreciated: -Chronic condition for patient. She has declined right heart cath/eval by pulmonary HTN specialist numerous times in the past. -Says she will consider it as outpatient follow-up. Discharge Summary Reason For Visit: SHORTNESS OF BREATH; COUGH; LUNG MASS Current Active Problems Anemia (Acute) Cough (Acute) Hemoptysis (Acute) Lung mass (Acute) Pneumonia (Acute) SOB (shortness of breath) (Acute) Asthma (Chronic) HTN (hypertension) (Chronic) Pulmonary HTN (Chronic) Condition: Improved - Instructions Diet, Activity, Other Instructions: You were admitted because you had shortness of breath and coughing up blood. You were diagnosed with Pneumonia and treated with antibiotics. Many tests were done to rule out other causes of coughing up blood. Chest Xray, CAT scan of the chest, TB screening tests, blood cultures and sputum cultures were done. You were also found to have anemia. You received IV iron and 1 unit of blood. You were also started on an iron supplement that you will continue to take at home. You have a history of Pulmonary Hypertension. This causes high blood pressure in the blood vessels that carry blood to the lungs, making your heart work harder and gives you trouble breathing. You were seen by the city controller (Dr. Mcnair) who recommended that you follow-up with Dr. Gutierres for further evaluation and management of the pulmonary hypertension. Please take the following medications as prescribed: 1. Augmentin 625mg twice a day for 1 week. 2. Lactobacillus (Bacid) once a day for 1 month. 3. Ferrous sulfate 325 mg once a day. 4. You will also bring home with you an oxygen tank that you can use if you' re having shortness of breath. In addition we sent you with prescriptions for a nebulizer machine and nebulized albuterol (4 times per day as needed for shortness of breath or wheezing). 5. We stopped your Hydralazine because it can impact your breathing and you will need to follow-up with your primary care doctor for BP monitoring and further management Follow-ups: - Please call the city controller, Dr. Gutierres's office to make an appointment for follow-up within 1 week. - Follow-up with your primary care doctor (Dr. Jeffrey) within 1 -2 weeks. - Follow-up with Dr. Garcia. A repeat CAT scan is recommended after 6 weeks to make sure the lung findings have resolved. Call 911 or go to the ED if with any worsening fevers, chills, shortness of breath, chest pain or any new concerns noted. Referrals: Alex Gutierres MD [Staff Physician] - Alejandra Jeffrey MD [Primary Care Provider] - Vira Mckeon MD [Staff Physician] - Grey Garcia MD [Staff Physician] - Disposition: HOME - Home Medications Comprehensive Discharge Medication List: Ambulatory Orders Albuterol Sulfate [Proair Hfa] 8.5 gm IH DAILY 06/02/18 Amlodipine Besylate 10 mg PO DAILY 06/02/18 Apixaban [Eliquis] 5 mg PO BID 06/02/18 Atorvastatin Calcium 20 mg PO DAILY 06/02/18 Brimonidine Tartrate [Alphagan 0.15% -] 1 drop OU BID 06/02/18 Losartan Potassium 50 mg PO DAILY 06/03/18 Albuterol 0.083% Nebulizer Sofia [Ventolin 0.083% Nebulizer Soln -] 1 neb NEB Q6H PRN #120 vial 06/17/18 Amox-Tr/K Cl [Augmentin - 500Mg Tablet] 1 tab PO BID #14 tab 06/17/18 Ferrous Sulfate [Feosol] 325 mg PO DAILY #30 ud 06/17/18 Guaifenesin/D-Methorphan Hb [Diabetic Tussin Dm -] 5 ml PO Q6H PRN ml 06/17/18 Lactobacillus Acidophilus [Bacid -] 1 tab PO DAILY #30 tab 06/17/18 Miscellaneous Medical Supply [Outpatient Order] 1 each ASDIR #1 misc Miscellaneous Medical Supply [Outpatient Order] 1 each ASDIR #1 misc - Discharge Referral Referred to [facility] No
== END 2018-06-17 16:45 | disposition home or self-care (01) | DRG 194 ==
LOC: JER 14:34 → JERBED 18:36 → J4W 06-03 15:55 → J6S 06-10 14:52
PROVIDERS: ADMIT Internal Medicine; ATTEND Internal Medicine
PROC: 30233N1 Transfusion of Nonautologous Red Blood Cells into Peripheral Vein, Percutaneous Approach (ICD-10-PCS; principal; 2018-06-10)
DX: J18.9 Pneumonia, unspecified organism (principal); R04.2 Hemoptysis; E87.1 Hypo-osmolality and hyponatremia; D62 Acute posthemorrhagic anemia; E11.9 Type 2 diabetes mellitus without complications; I10 Essential (primary) hypertension; I51.7 Cardiomegaly; Z79.01 Long term (current) use of anticoagulants; D64.9 Anemia, unspecified; I27.20 Pulmonary hypertension, unspecified; J45.909 Unspecified asthma, uncomplicated; E87.6 Hypokalemia; R01.1 Cardiac murmur, unspecified; I48.0 Paroxysmal atrial fibrillation; N28.1 Cyst of kidney, acquired; R06.03 Acute respiratory distress; M35.9 Systemic involvement of connective tissue, unspecified
CPT/HCPCS: 36415; 36430; 36511; 71045-TC-FY; 71046-TC-FY; 71250-TC; 71275-TC; 74176-TC; 80048; 80053; 80061; 81003; 81015; 82272; 82728; 82962; 83036; 83520; 83540; 83550; 83721; 83735; 83880; 84100; 84466; 84484; 85025; 85027; 85044; 85610; 85651; 85730; 86038; 86140; 86162; 86225; 86235; 86256; 86480; 86738; 86850; 86900; 86901; 86922; 87040; 87070; 87077; 87086; 87102; 87116; 87205; 87206; 87210; 87305; 87449; 87556; 87899; 88104; 93005; 93010; 93306-TC; 93970-TC; 94640; 94761; 97116-GP; 97162-GP; 99285-25; J1756; J7620; P9038; P9058

== ENCOUNTER 2018-07-11 14:52 | Inpatient (IN) | payer OTHER ==
--- NOTE | 2018-07-11 15:03 | PDOC ---
Rapid Medical Evaluation Time Seen by Provider: 07/11/18 15:00 Medical Evaluation: Allergies Allergy/AdvReac Type Severity Reaction Status Date / Time melon Allergy Verified 06/09/18 12:42 strawberry Allergy Verified 06/09/18 12:42 lactose AdvReac Verified 06/13/18 23:59 07/11/18 15:04 Pt presents to the ED for a lab variance. Had a chemistry done today from Dr. Morejon office and Cr elevated to 2.0. Baseline 0.8, Exam: Wheelchair bound, on O2 normally Orders: Labs, urine, IV insert Pt to proceed to ED for further evaluation Discharge Disposition - Diagnosis Abnormal laboratory test - Referrals Referrals: Alejandra Jeffrey MD [Primary Care Provider] - - Patient Instructions - Post Discharge Activity
[2018-07-11 15:58] LABS: BASO % 0.5 % (0-2.0); EOS % 1.5 % (0-4.5); HEMATOCRIT 31.5 % (32.4-45.2); HEMOGLOBIN 10.4 GM/dL (10.7-15.3); LYMPH % 11.3 % (8-40); MCH 31.3 pg (25.7-33.7); MEAN CELL VOLUME 94.8 fl (80-96); MEAN PLT VOLUME 8.4 fl (7.5-11.1); MONO % 5.6 % (3.8-10.2); NEUT % 81.1 % (42.8-82.8); PLATELET COUNT 297 K/MM3 (134-434); RBC 3.32 M/mm3 (3.60-5.2); RDW 14.8 % (11.6-15.6); WHITE BLOOD COUNT 8.4 K/mm3 (4.0-10.0)
[2018-07-11 16:04] LABS: URINE APPEARANCE CLEAR; URINE BILIRUBIN NEGATIVE (<2.0 mg/dL); URINE COLOR LTYELLOW; URINE GLUCOSE (UA) NEGATIVE (NEGATIVE); URINE KETONE NEGATIVE (NEGATIVE); URINE LEUK ESTERASE NEGATIVE (NEGATIVE); URINE NITRITE NEGATIVE (NEGATIVE); URINE PROTEIN 2+ (NEGATIVE); URINE UROBILINOGEN NEGATIVE mg/dL (0.2-1.0)
--- NOTE | 2018-07-11 16:14 | PDOC ---
Attending Attestation - HPI HPI: 07/11/18 18:03 The patient is a 72-year-old female with past medical history significant for pulmonary HTN, Afib, CHF (newly dx), and recent bilateral pneumonia (discharged home with abx) presents to the emergency department with abnormal lab value of Cr level of 2.0. The patient presents from Dr. Morejon office, Per Dr. 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 The patient had a history of hemoglobin of 6.0 with prior blood transfusion, elevated LDH and patient Cr level elevated from 1.4 to 2.0. PCP request the patient had a nib adjuster consult. The patient was seen [facility] about 2 weeks prior, during the visiting patient was diagnosed with CHF and discharged with Lasix. Per prior records, The patient was seen at the ED on 06/02/18 for worsening PANIAGUA and hemoptysis. During admission, Chest X-ray showed B/l pneumonia, was started on antibiotics. 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 The patient was discharged with recommended to use 2L O2 at home. The patient was discharged on 06/17/2018 with PO abx. The patient reports being compliant with the medication. Allergies: NKA, Melon, strawberry and lactose. Social history: No past or present use of tobacco or recreational drug use. Occasional alcohol use. Surgical history: None reported PCP: Alejandra Whitten Parole Officer: Dr. Gutierres - Medical Decision Making 07/11/18 18:04 Documentation prepared by Tiki Sulliavn, acting as medical planner for Demetrius Fuentes MD. <Tiki Sullivan - Last Filed: 07/11/18 18:04> - Resident Resident Name: Ky Lopez - ED Attending Attestation I have performed the following: I have examined & evaluated the patient, The case was reviewed & discussed with the resident, I agree w/resident's findings & plan, Exceptions are as noted - Physicial Exam PE: General: no acute distress Cardiac: rrr, Pulm: CTA b/l Abd: soft nontender - Medical Decision Making 07/11/18 16:14 A portion of this note was documented by scribe services under my direction. I have reviewed the details of the note, within reason, and agree with the documentation with the following case summary and management plan written by me will admti pt for further management per dr. Gutierres <Demetrius Fuentes - Last Filed: 07/12/18 10:03>
[2018-07-11 16:27] LABS: ALK PHOS 130 U/L (45-117); ANION GAP 11 MMOL/L (8-16); BILIRUBIN,TOTAL 0.4 mg/dL (0.2-1); BLOOD UREA NITROGEN 31 mg/dL (7-18); CALCIUM 8.8 mg/dL (8.5-10.1); CHLORIDE 102 mmol/L (98-107); CO2 29 mmol/L (21-32); GLUCOSE,RANDOM 94 mg/dL (74-106); POTASSIUM 3.5 mmol/L (3.5-5.1); SGOT/AST 49 U/L (15-37); SGPT/ALT 41 U/L (13-61); SODIUM 141 mmol/L (136-145); TOT PROT 8.6 g/dl (6.4-8.2)
[2018-07-11 16:29] LABS: INR 1.74 (0.83-1.09); PROTHROMBIN TIME (PATIENT) 20.7 SEC (9.7-13.0)
[2018-07-11 17:59] LABS: URINE BACTERIA RARE /hpf (NONE SEEN)
--- NOTE | 2018-07-11 19:15 | PDOC ---
History of Present Illness - General Chief Complaint: Revisit, Lab Variance Stated Complaint: SENT BY PCP Time Seen by Provider: 07/11/18 15:00 History Source: Patient Exam Limitations: No Limitations - History of Present Illness Initial Comments: 07/11/18 18:50 72 yo female pmh of pulmonary HTN, Afib (on eliquis) CHF (recently diagnosed at [facility] over 2 weeks ago) O2 dependent since last admission for bilateral pneumia (on 2L) and anemia of 6.0 requiring blood transfusion presents to the ER with elevated Cr (today was 2, last known was 1.4) as per Dr. Gutierres. Pt has no complaints today. Denies F/C/N/V changes in bowel or bladder habits, abdominal pain. Pt told to DC Lasix for unknown reason. 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 which was DC Past History - Past Medical History Allergies/Adverse Reactions: Allergies Allergy/AdvReac Type Severity Reaction Status Date / Time melon Allergy Verified 07/11/18 15:05 strawberry Allergy Verified 07/11/18 15:05 lactose AdvReac Verified 07/11/18 15:05 Home Medications: Ambulatory Orders Albuterol Sulfate [Proair Hfa] 8.5 gm IH DAILY 06/02/18 Amlodipine Besylate 10 mg PO DAILY 06/02/18 Apixaban [Eliquis] 5 mg PO BID 06/02/18 Atorvastatin Calcium 20 mg PO DAILY 06/02/18 Brimonidine Tartrate [Alphagan 0.15% -] 1 drop OU BID 06/02/18 Losartan Potassium 50 mg PO DAILY 06/03/18 Albuterol 0.083% Nebulizer Sofia [Ventolin 0.083% Nebulizer Soln -] 1 neb NEB Q6H PRN #120 vial 06/17/18 Guaifenesin/D-Methorphan Hb [Diabetic Tussin Dm -] 5 ml PO Q6H PRN ml 06/17/18 Lactobacillus Acidophilus [Bacid -] 1 tab PO DAILY #30 tab 06/17/18 Ascorbic Acid [C-500] 500 mg PO DAILY 07/11/18 Ciprofloxacin HCl [Cipro] 500 mg PO BID 07/11/18 Folic Acid 1 mg PO DAILY 07/11/18 Furosemide [Lasix] 20 mg PO DAILY 07/11/18 Anemia: No Asthma: Yes (bronchial asthma) Cancer: No Cardiac Disorders: No CVA: No COPD: No (oxygen dependent) Dementia: No Diabetes: Yes GI Disorders: No Disorders: No HTN: Yes Hypercholesterolemia: No Liver Disease: No Seizures: No Thyroid Disease: No - Immunization History Immunization Up to Date: Yes - Suicide/Smoking/Psychosocial Hx Smoking History: Never smoked Information on smoking cessation initiated: No Hx Alcohol Use: No Drug/Substance Use Hx: No Substance Use Type: None Review of Systems - Review of Systems Constitutional: No: Chills, Fever Respiratory: No: Shortness of Breath Cardiac (ROS): Yes: Edema. No: Chest Pain ABD/GI: No: Constipated, Nausea, Vomiting : No: Burning, Dysuria Musculoskeletal: No: Back Pain Neurological: No: Headache, Numbness, Paresthesia, Weakness *Physical Exam - Vital Signs Last Vital Signs Temp Pulse Resp BP Pulse Ox 98.7 F 64 20 145/64 94 L 07/11/18 18:11 07/11/18 18:11 07/11/18 18:11 07/11/18 18:11 07/11/18 18:11 ED Treatment Course - LABORATORY CBC & Chemistry Diagram: 07/11/18 15:47 07/11/18 15:47 - ADDITIONAL ORDERS Additional order review: Laboratory Results 07/11/18 07/11/18 07/11/18 15:47 15:47 15:47 WBC RBC Hgb Hct MCV MCH MCHC RDW Plt Count MPV Absolute Neuts (auto) Neutrophils % Lymphocytes % Monocytes % Eosinophils % Basophils % Nucleated RBC % PT with INR 20.70 H INR 1.74 H Sodium 141 Potassium 3.5 Chloride 102 Carbon Dioxide 29 Anion Gap 11 BUN 31 H Creatinine 2.0 H Creat Clearance w eGFR 24.36 Random Glucose 94 Calcium 8.8 Total Bilirubin 0.4 AST 49 H ALT 41 Alkaline Phosphatase 130 H B-Natriuretic Peptide Total Protein 8.6 H Albumin 3.0 L Urine Color Ltyellow Urine Appearance Clear Urine pH 6.0 Ur Specific [place] 1.006 L Urine Protein 2+ H Urine Glucose (UA) Negative Urine Ketones Negative Urine Blood 3+ H Urine Nitrite Negative Urine Bilirubin Negative Urine Urobilinogen Negative Ur Leukocyte Esterase Negative Urine WBC (Auto) 7 Urine RBC (Auto) 32 Urine Bacteria Rare 07/11/18 07/11/18 15:47 15:39 WBC 8.4 RBC 3.32 L Hgb 10.4 L Hct 31.5 L D MCV 94.8 MCH 31.3 MCHC 33.0 RDW 14.8 Plt Count 297 MPV 8.4 Absolute Neuts (auto) 6.8 Neutrophils % 81.1 Lymphocytes % 11.3 Monocytes % 5.6 Eosinophils % 1.5 Basophils % 0.5 Nucleated RBC % 0 PT with INR INR Sodium Potassium Chloride Carbon Dioxide Anion Gap BUN Creatinine Creat Clearance w eGFR Random Glucose Calcium Total Bilirubin AST ALT Alkaline Phosphatase B-Natriuretic Peptide 2215.2 H Total Protein Albumin Urine Color Urine Appearance Urine pH Ur Specific [place] Urine Protein Urine Glucose (UA) Urine Ketones Urine Blood Urine Nitrite Urine Bilirubin Urine Urobilinogen Ur Leukocyte Esterase Urine WBC (Auto) Urine RBC (Auto) Urine Bacteria 07/11/18 15:47 RBC 3.32 L MCV 94.8 MCHC 33.0 RDW 14.8 MPV 8.4 Neutrophils % 81.1 Lymphocytes % 11.3 Monocytes % 5.6 Eosinophils % 1.5 Basophils % 0.5 - RADIOLOGY Radiology Studies Ordered: Category Date Time Status CHEST PA & LAT [RAD] Stat Radiology 07/11/18 16:59 Ordered Medical Decision Making - Medical Decision Making 07/11/18 19:29 72 yo female pmh recently diagnosed CHF presents to the ED with elevated Cr Labs: Cr: 2 BUN: 31 BNP: 2200s ua: 3+ blood Dr. 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 Barros 07/11/18 21:01 *DC/Admit/Observation/Transfer Diagnosis at time of Disposition: Abnormal laboratory test, Acute kidney injury - Discharge Dispostion Condition at time of disposition: Stable Decision to Admit order: Yes - Referrals Referrals: Alejandra Jeffrey MD [Primary Care Provider] - - Patient Instructions - Post Discharge Activity
--- NOTE | 2018-07-11 21:49 | HP ---
CHIEF COMPLAINT: PCP: Dr. Jeffrey HISTORY OF PRESENT ILLNESS: 72 y/o F with PMHx of Pulmonary HTN, Afib (on eliquis) CHF, presents to [facility] with Cr 2.0 from her cardiologists (Dr. Gutierres) office. 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 Currently the patient has no complaints. PCP request the patient had a doper consult. Patient was admitted on 06/02 for PNA and was discharged with PO Abx. She says she was compliant with the ABx even though she experienced some recent dark stools. Additionally, patient says she experienced some SOB after leaving [facility] and then went to [facility] and was admitted for 1 week for fluid overload. Denies Fevers, chills, nausea, vomiting, chest pain, SOB, Abdominal pain. Recent Travel: Denies PAST MEDICAL HISTORY: HTN HLD Afib (on eliquis) CHF (recently diagnosed, See's Dr. Gutierres outpatient) NIDDMII (Diet controlled) Asthma/Bronchitis Recent B/L Pneumonia now O2 dependent on 2L Anemia requiring blood transfusion PAST SURGICAL HISTORY: Denies Social History: Smoking: Denies Alcohol: Socially Drugs: Denies Family History: Mothe: Stroke Father: Cardiomegaly Allergies melon Allergy (Verified 07/11/18 15:05) strawberry Allergy (Verified 07/11/18 15:05) lactose Adverse Reaction (Verified 07/11/18 15:05) HOME MEDICATIONS: Home Medications Medication Instructions Recorded Albuterol Sulfate [Proair Hfa] 8.5 gm IH DAILY 06/02/18 Amlodipine Besylate 10 mg PO DAILY 06/02/18 Apixaban [Eliquis] 5 mg PO BID 06/02/18 Atorvastatin Calcium 20 mg PO DAILY 06/02/18 Brimonidine Tartrate [Alphagan 1 drop OU BID 06/02/18 0.15% -] Losartan Potassium 50 mg PO DAILY 06/03/18 Albuterol 0.083% Nebulizer Sofia 1 neb NEB Q6H PRN #120 vial 06/17/18 [Ventolin 0.083% Nebulizer Soln -] Guaifenesin/D-Methorphan Hb 5 ml PO Q6H PRN ml 10/02/18 [Diabetic Tussin Dm -] Lactobacillus Acidophilus [Bacid -] 1 tab PO DAILY #30 tab 06/17/18 Ascorbic Acid [C-500] 500 mg PO DAILY 07/11/18 Ciprofloxacin HCl [Cipro] 500 mg PO BID 07/11/18 Folic Acid 1 mg PO DAILY 07/11/18 Furosemide [Lasix] 20 mg PO DAILY 07/11/18 REVIEW OF SYSTEMS As per HPI PHYSICAL EXAMINATION Vital Signs - 24 hr 07/11/18 07/11/18 07/11/18 15:08 15:58 18:11 Temperature 98.8 F 98.7 F Pulse Rate 62 Pulse Rate [ 64 Apical] Respiratory 16 20 Rate Blood Pressure 151/65 Blood Pressure 145/64 [Left Arm] O2 Sat by Pulse 100 98 94 L Oximetry (%) GENERAL: A&Ox3, NAD HEAD: NCAT EYES: PERRL, EOMI EARS, NOSE, THROAT: Oropharynx clear without exudates. Dry mucous membranes. NECK: No JVD LUNGS: Breath sounds equal, clear to auscultation bilaterally. No wheezes. On 2L via NC HEART: Regular rate and rhythm, 3/6 systolic murmur at LUSB ABDOMEN: Soft, nontender, not distended, + bowel sounds, no guarding MUSCULOSKELETAL: No CVA tenderness. EXTREMITIES: 2+ pulses, No calf tenderness. No peripheral edema. NEUROLOGICAL: Cranial nerves II-XII intact. Normal speech. Normal gait. SKIN: Warm, dry, no rashes or lesions noted, normal capillary refill. Laboratory Results - last 24 hr 07/11/18 07/11/18 07/11/18 15:39 15:47 15:47 WBC 8.4 RBC 3.32 L Hgb 10.4 L Hct 31.5 L D MCV 94.8 MCH 31.3 MCHC 33.0 RDW 14.8 Plt Count 297 MPV 8.4 Absolute Neuts (auto) 6.8 Neutrophils % 81.1 Lymphocytes % 11.3 Monocytes % 5.6 Eosinophils % 1.5 Basophils % 0.5 Nucleated RBC % 0 PT with INR 20.70 H INR 1.74 H Sodium Potassium Chloride Carbon Dioxide Anion Gap BUN Creatinine Creat Clearance w eGFR Random Glucose Calcium Total Bilirubin AST ALT Alkaline Phosphatase B-Natriuretic Peptide 2215.2 H Total Protein Albumin Urine Color Urine Appearance Urine pH Ur Specific Mineral Urine Protein Urine Glucose (UA) Urine Ketones Urine Blood Urine Nitrite Urine Bilirubin Urine Urobilinogen Ur Leukocyte Esterase Urine WBC (Auto) Urine RBC (Auto) Urine Bacteria 07/11/18 07/11/18 15:47 15:47 WBC RBC Hgb Hct MCV MCH MCHC RDW Plt Count MPV Absolute Neuts (auto) Neutrophils % Lymphocytes % Monocytes % Eosinophils % Basophils % Nucleated RBC % PT with INR INR Sodium 141 Potassium 3.5 Chloride 102 Carbon Dioxide 29 Anion Gap 11 BUN 31 H Creatinine 2.0 H Creat Clearance w eGFR 24.36 Random Glucose 94 Calcium 8.8 Total Bilirubin 0.4 AST 49 H ALT 41 Alkaline Phosphatase 130 H B-Natriuretic Peptide Total Protein 8.6 H Albumin 3.0 L Urine Color Ltyellow Urine Appearance Clear Urine pH 6.0 Ur Specific Mineral 1.006 L Urine Protein 2+ H Urine Glucose (UA) Negative Urine Ketones Negative Urine Blood 3+ H Urine Nitrite Negative Urine Bilirubin Negative Urine Urobilinogen Negative Ur Leukocyte Esterase Negative Urine WBC (Auto) 7 Urine RBC (Auto) 32 Urine Bacteria Rare ASSESSMENT/PLAN: 72 y/o F with PMHx of Pulmonary HTN, Afib (on eliquis) CHF, presents to [facility] with Cr 2.0 from her cardiologists (Dr. Gutierres) office. #ANNA -Likely due to CHF -Avoid nephrotoxic agent -Nephrology (Dr. Cordova) Consulted -IV NS 500 mL to be given @ 42 mls/hr -Urine electrolytes, creatinine and Na pending #Atrial Fibrillation -Cardiology (Dr. Gutierres) consulted -Continue home Dose Eliquis #HTN -Continue home dose Amlodipine once meds rec'ed -Hold home dose furosemide, valsartan in the setting of ANNA #Asthma -Continue home dose Albuterol, Proair #FEN -500 mL NS; then PO Fluids -lytes wnl -Sodium controlled diet #PPx -DVT: Home dose Eliquis Visit type - Emergency Visit Emergency Visit: Yes ED Registration Date: 07/11/18 Care time: The patient presented to the Emergency Department on the above date and was hospitalized for further evaluation of their emergent condition. - New Patient This patient is new to me today: Yes Date on this admission: 07/12/18 - Critical Care Critical Care patient: No
--- NOTE | 2018-07-11 22:19 | PN ---
Teaching Attending Note Name of Resident: Bridgette Ragsdale ATTENDING PHYSICIAN STATEMENT I saw and evaluated the patient. I reviewed the resident's note and discussed the case with the resident. I agree with the resident's findings and plan as documented. SUBJECTIVE: OBJECTIVE: ASSESSMENT AND PLAN: this is a 72 y/o female patient with hx of HTN, DL, CHF, presented after she was referred from her patient registration supervisor after the patient had abnormal labs. ANNA: - avoid nephrotoxic agent - renal evaluation - due to the CHF will give the patient 500cc of IVF then will allow the patient to take PO and repeat the CMP in the morning d/c furosemide d/c valsartan c/w aspirin send urine electrolytes and urine creatinine and Na c/w heart medication
[2018-07-11] MEDS ORDERED: SODIUM CHLORIDE 500 ML IV ONE (23:25)
[2018-07-11] MEDS: APIXABAN 5 MG TABLET PO SCH (23:45)
[2018-07-12] MEDS ORDERED: HEPARIN NA (PORCINE) 5,000 UNITS/ML 1ML VIAL SQ SCH (02:00)
[2018-07-12 03:30] LABS: URINE APPEARANCE CLEAR; URINE BILIRUBIN NEGATIVE (<2.0 mg/dL); URINE COLOR STRAW; URINE GLUCOSE (UA) NEGATIVE (NEGATIVE); URINE KETONE NEGATIVE (NEGATIVE); URINE LEUK ESTERASE NEGATIVE (NEGATIVE); URINE NITRITE NEGATIVE (NEGATIVE); URINE PROTEIN 2+ (NEGATIVE); URINE UROBILINOGEN NEGATIVE mg/dL (0.2-1.0)
[2018-07-12 03:50] LABS: EPI CELLS RARE /HPF (FEW); URINE BACTERIA RARE /hpf (NONE SEEN)
[2018-07-12 07:28] LABS: BASO % 0.7 % (0-2.0); EOS % 3.3 % (0-4.5); HEMATOCRIT 26.6 % (32.4-45.2); LYMPH % 13.4 % (8-40); MCH 31.9 pg (25.7-33.7); MCHC 33.7 g/dl (32.0-36.0); MEAN CELL VOLUME 94.7 fl (80-96); MEAN PLT VOLUME 8.1 fl (7.5-11.1); MONO % 7.5 % (3.8-10.2); NEUT % 75.1 % (42.8-82.8); PLATELET COUNT 242 K/MM3 (134-434); RBC 2.81 M/mm3 (3.60-5.2); RDW 14.6 % (11.6-15.6); WHITE BLOOD COUNT 6.6 K/mm3 (4.0-10.0)
[2018-07-12 08:31] LABS: ALBUMIN 2.4 g/dl (3.4-5.0); ALK PHOS 91 U/L (45-117); ANION GAP 7 MMOL/L (8-16); BILIRUBIN,TOTAL 0.4 mg/dL (0.2-1); BLOOD UREA NITROGEN 28 mg/dL (7-18); CALCIUM 8.2 mg/dL (8.5-10.1); CHLORIDE 108 mmol/L (98-107); CO2 30 mmol/L (21-32); GLUCOSE,RANDOM 82 mg/dL (74-106); MAGNESIUM 1.7 mg/dL (1.8-2.4); PHOSPHOROUS 3.4 mg/dL (2.5-4.9); SGOT/AST 32 U/L (15-37); SGPT/ALT 31 U/L (13-61); SODIUM 145 mmol/L (136-145); TOT PROT 6.7 g/dl (6.4-8.2)
--- NOTE | 2018-07-12 08:37 | PN ---
Progress Note (short form) - Note Progress Note: Patient is feeling better. no acute distress. Vital Signs Temperature 98.0 F 07/12/18 06:00 Pulse Rate 83 07/12/18 06:00 Respiratory Rate 20 07/12/18 06:00 Blood Pressure 145/92 07/12/18 06:00 O2 Sat by Pulse Oximetry (%) 99 07/12/18 05:43 GENERAL: A&Ox3, NAD HEAD: NCAT,EYES: PERRL, EOMI, EARS, NOSE, THROAT: Oropharynx clear without exudates. Dry mucous membranes. NECK: No JVD LUNGS: Breath sounds equal, clear to auscultation bilaterally. No wheezes. On 2L via NC HEART: Regular rate and rhythm, 3/6 systolic murmur at LUSB ABDOMEN: Soft, nontender, not distended, + bowel sounds, no guarding EXTREMITIES: 2+ pulses, No calf tenderness. No peripheral edema. NEUROLOGICAL: Cranial nerves II-XII intact. Normal speech. Normal gait. SKIN: Warm, dry, no rashes or lesions noted, normal capillary refill. CBCD WBC 6.6 K/mm3 (4.0-10.0) 07/12/18 06:45 RBC 2.81 M/mm3 (3.60-5.2) L 07/12/18 06:45 Hgb 9.0 GM/dL (10.7-15.3) L 07/12/18 06:45 Hct 26.6 % (32.4-45.2) L D 07/12/18 06:45 MCV 94.7 fl (80-96) 07/12/18 06:45 MCHC 33.7 g/dl (32.0-36.0) 07/12/18 06:45 RDW 14.6 % (11.6-15.6) 07/12/18 06:45 Plt Count 242 K/MM3 (134-434) 07/12/18 06:45 MPV 8.1 fl (7.5-11.1) 07/12/18 06:45 CMP Sodium 145 mmol/L (136-145) 07/12/18 06:45 Potassium 3.5 mmol/L (3.5-5.1) 07/11/18 15:47 Chloride 108 mmol/L (98-107) H 07/12/18 06:45 Carbon Dioxide 30 mmol/L (21-32) 07/12/18 06:45 Anion Gap 7 MMOL/L (8-16) L 07/12/18 06:45 BUN 28 mg/dL (7-18) H 07/12/18 06:45 Creatinine 2.0 mg/dL (0.55-1.3) H 07/12/18 06:45 Creat Clearance w eGFR 24.36 (>60) 07/12/18 06:45 Random Glucose 82 mg/dL (74-106) 07/12/18 06:45 Calcium 8.2 mg/dL (8.5-10.1) L 07/12/18 06:45 Total Bilirubin 0.4 mg/dL (0.2-1) 07/12/18 06:45 AST 32 U/L (15-37) 07/12/18 06:45 ALT 31 U/L (13-61) 07/12/18 06:45 Alkaline Phosphatase 91 U/L (45-117) 07/12/18 06:45 Total Protein 6.7 g/dl (6.4-8.2) 07/12/18 06:45 Albumin 2.4 g/dl (3.4-5.0) L 07/12/18 06:45 Current Medications Generic Name Dose Route Start Last Admin Trade Name Freq PRN Reason Stop Dose Admin Apixaban 5 mg 07/11/18 22:00 07/11/18 23:45 Eliquis - PO 5 mg BID ANITA Administration Sodium Chloride 500 mls @ 42 mls/hr 07/11/18 23:25 Normal Saline - IV 07/12/18 11:19 ASDIR ONE Home Medications Medication Instructions Recorded Albuterol Sulfate [Proair Hfa] 8.5 gm IH DAILY 06/02/18 Amlodipine Besylate 10 mg PO DAILY 06/02/18 Apixaban [Eliquis] 5 mg PO BID 06/02/18 Atorvastatin Calcium 20 mg PO DAILY 06/02/18 Brimonidine Tartrate [Alphagan 1 drop OU BID 06/02/18 0.15% -] Albuterol 0.083% Nebulizer Sofia 1 neb NEB Q6H PRN #120 vial 06/17/18 [Ventolin 0.083% Nebulizer Soln -] Guaifenesin/D-Methorphan Hb 5 ml PO Q6H PRN ml 06/17/18 [Diabetic Tussin Dm -] Lactobacillus Acidophilus [Bacid -] 1 tab PO DAILY #30 tab 06/17/18 Ascorbic Acid [C-500] 500 mg PO DAILY 07/11/18 Ciprofloxacin HCl [Cipro] 500 mg PO BID 07/11/18 Folic Acid 1 mg PO DAILY 07/11/18 Echo 03/02 ([facility]): nl LV size and syst fxn; no LVH. slight mid-cavitary gradient (8). LVOT gradient 27 resting, up to 33 with valsalva. no mitral TEJA. dd1. hi LAP. nl LA size. mild-mod RVE, normal function. mild-mod DENISE. severe TR. PASP 67. neg bubble study. Echo 04/2016: LV normal in size, EJF 65-70%, no wall motion abnormalities, Interatrial septal aneurysm, no shunt seen, mild AR, moderate MR, moderate PH, mild to moderate ME Asessment/plan: 72 y/o F with PMHx of Pulmonary HTN, Afib (on eliquis) CHF, presents to [facility] [place] with Cr 2.0 from her cardiologists (Dr. Gutierres) office. #ANNA is 2.0 today: with baseline of 1.4 on the recent admission. with unknown etiology , Lasix and Arb. is discontinued nephro. consult appreciated. questionable drug induced Lupus due to hydralazine which is on hold, will get rhematology involved. # CHF, lasix is discontinued due to ANNA and ARB discontinued, will monitor # Paroxysmal Atrial Fibrillation with [id number] of 4, on eliquis,cardiology ( Dr. Gutierres) consult appreciated. # Anemia on Eliquis, will monitor, will get iron studies, will get stool occult if needed Gi consult. #HTN on Amlodipine as per cardio to avoid BBs, diltiazem, clonidine given h/o sinus node dysfunction # questionable Drug induced lupus , hydralazine is on hold #Asthma: continue home dose Albuterol, Proair #PPx DVT: Home dose Eliquis #HLD: cont statin DVt Px; Eliquis Visit type - Emergency Visit Emergency Visit: Yes ED Registration Date: 07/11/18 Care time: The patient presented to the Emergency Department on the above date and was hospitalized for further evaluation of their emergent condition. - New Patient This patient is new to me today: Yes Date on this admission: 07/12/18 - Critical Care Critical Care patient: No - Discharge Referral Referred to [facility] No
[2018-07-12 08:51] LABS: POTASSIUM 2.9 mmol/L (3.5-5.1)
--- NOTE | 2018-07-12 09:31 | CON.CARD ---
Consult Consult Specialty:: cardio - History of Present Illness Chief Complaint: ANNA History of Present Illness: coughing a bit, scant blood sge thinks from nasal mucus swelling down--mild no sob no cp - Past Medical History Cardio/Vascular: Yes: AFIB, HTN, Hyperlipdemia Pulmonary: Yes: Asthma Renal/: Yes: Other (renal cyst and adrenal lesion) Endocrine: Yes: Diabetes Mellitus - Alcohol/Substance Use Hx Alcohol Use: No History of Substance Use: reports: None - Smoking History Smoking history: Never smoked Home Medications - Allergies Allergies/Adverse Reactions: Allergies Allergy/AdvReac Type Severity Reaction Status Date / Time melon Allergy Verified 07/11/18 15:05 strawberry Allergy Verified 07/11/18 15:05 lactose AdvReac Verified 07/11/18 15:05 - Home Medications Home Medications: Ambulatory Orders Albuterol Sulfate [Proair Hfa] 8.5 gm IH DAILY 06/02/18 Amlodipine Besylate 10 mg PO DAILY 06/02/18 Apixaban [Eliquis] 5 mg PO BID 06/02/18 Atorvastatin Calcium 20 mg PO DAILY 06/02/18 Brimonidine Tartrate [Alphagan 0.15% -] 1 drop OU BID 06/02/18 Albuterol 0.083% Nebulizer Sofia [Ventolin 0.083% Nebulizer Soln -] 1 neb NEB Q6H PRN #120 vial 06/17/18 Guaifenesin/D-Methorphan Hb [Diabetic Tussin Dm -] 5 ml PO Q6H PRN ml 06/17/18 Lactobacillus Acidophilus [Bacid -] 1 tab PO DAILY #30 tab 06/17/18 Ascorbic Acid [C-500] 500 mg PO DAILY 07/11/18 Ciprofloxacin HCl [Cipro] 500 mg PO BID 07/11/18 Folic Acid 1 mg PO DAILY 07/11/18 Family Disease History - Family Disease History Family History: Denies (no known pulm htn) Review of Systems - Review of Systems Constitutional: denies: Chills, Fever Eyes: denies: Eye Pain HENT: reports: Nasal Congestion Neck: denies: Stiffness Cardiovascular: denies: Palpitations Respiratory: denies: Orthopnea, PND Gastrointestinal: denies: Diarrhea, Rectal Bleeding Genitourinary: denies: Burning, Hematuria Musculoskeletal: denies: Muscle Pain Integumentary: denies: Rash Neurological: denies: Numbness, Seizure, Syncope Endocrine: denies: Excessive Sweating Hematology/Lymphatic: denies: Excessive Bleeding Vital Signs: Vital Signs Temperature 98.0 F 07/12/18 06:00 Pulse Rate 83 07/12/18 06:00 Respiratory Rate 20 07/12/18 06:00 Blood Pressure 145/92 07/12/18 06:00 O2 Sat by Pulse Oximetry (%) 99 07/12/18 05:43 Constitutional: Yes: Well Nourished, No Distress Eyes: No: Sclera Icterus HENT: No: Nasal Congestion Neck: No: Decreased ROM Respiratory: Yes: CTA Bilaterally. No: Accessory Muscle Use, Rales, Wheezes Gastrointestinal: Yes: Normal Bowel Sounds. No: Distention, Hepatomegaly, Palpable Mass, Tenderness Cardiovascular: Yes: Regular Rate and Rhythm JVD: No Carotid Bruit: No PMI: Non-Displaced Heart Sounds: Yes: S1, S2. No: Gallop Murmur: No: Systolic Murmur, Diastolic Murmur Musculoskeletal: Yes: Other (No kyphosis) Extremities: No: Cool, Cyanosis Edema: Yes (1+ ankles) Peripheral Pulses: 2+ Left Carotid, 2+ Right Carotid, 2+ Left Doralis Pedis, 2+ Right Dorsalis Pedis Integumentary: No: Jaundice Neurological: Yes: Alert, Oriented (x3) Psychiatric: No: Agitated - Other Data Labs, Other Data: CBC, BMP 07/12/18 06:45 07/12/18 06:45 INR, PTT INR 1.74 (0.83-1.09) H 07/11/18 15:47 Troponin, BNP 07/11/18 15:39 B-Natriuretic Peptide 2215.2 H Troponin, BNP 07/11/18 15:39 B-Natriuretic Peptide 2215.2 H Laboratory Tests 07/11/18 07/12/18 07/12/18 15:47 06:45 06:45 WBC 6.6 Hgb 9.0 L Plt Count 242 INR 1.74 H Sodium 145 Potassium 2.9 L* Carbon Dioxide 30 BUN 28 H Creatinine 2.0 H AST 32 ALT 31 Albumin 2.4 L Assessment/Plan CXR: clear lungs/pleura Echo 05/2018: nl lv, mod dilated rv, mod dec rv fcn, sev denise, mild-mod mr, sev tr, rvsp 40-50, mod ar, mild pr Echo 03/02 ([facility]): nl LV size and syst fxn; no LVH. slight mid-cavitary gradient (8). LVOT gradient 27 resting, up to 33 with valsalva. no mitral TEJA. dd1. hi LAP. nl LA size. mild-mod RVE, normal function. mild-mod DENISE. severe TR. PASP 67. neg bubble study. Echo 04/2016: 1. The left ventricular size is normal. 2. Overall left ventricular systolic function is normal with, an EF between 65 - 70 %. 3. No regional wall motion abnormalities were noted (apex not well seen). 4. The right ventricle is normal in size and function. 5. Left atrium is mildly dilated by volume. 6. The right atrium is markedly enlarged. 7. 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 8. There is mild aortic regurgitation. 9. The tricuspid valve appears structurally normal. 10. Moderate tricuspid regurgitation present; eccentric jet present, which hugs the interatrial septum--severity may be underestimated. 11. There is moderate pulmonary hypertension. 12. The right ventricular systolic pressure, as measured by Doppler, is 61 mmHg (assuming RA pressure of 3 mmHg). 13. [id number] pulmonic regurgitation. Stress Echo 08/02: 1:48 min (SOB). 75% MPHR. BP 140 rest, no change exercise. Non-ischemic stress test by EKG. +Atrial flutter with rapid conduction transiently seen during the recovery period, converting with evidence of brief sinus node arrest and junctional escape rhythm. Echo Findings: (1) No echocardiographic evidence of inducible ischemia--SUBMAX HR. (2) Moderate to severe (eccentric) TR seen. (3) Peak TR gradient is at least 52 mmHg. (4) Resting LV intracavitary gradient of 19 mmHg, rising to 86 mmHg on post- exercise images. (No systolic anterior motion of the mitral valve is seen at rest or post- exercise.) cta lungs 05/2018: no pe, +pna V/Q 04/2016: low prob for PE; central airway clumping/abnl ventil c/w airways dx and/or parenchymal dz PFTs 06/01: mild obstructive defect; mild decr DLCO; mild BD response a/p: 72 f hx pulm htn, htn, hld, here with sob, cough. ANNA: - ? etiology - recently admitted x 2 with PNA, started lasix 40 qd for LE edema, creat was 1.4 on d/c (10-14d ago)--creat 2.0 as outpt - ? part of drug-induced lupus (+ anti-histone Ab, ? sec to hydralazine--med stopped) - renal consult pending - ARB (olmesartan 40) and lasix stopped 3 days ago--continue holding anemia: - hgb 6's here 07/03, transfused-->7s on discharge - back down in 6's at [facility], transfused - was [address] hassan office this week - counts trending down here - continue eliquis, observe labs trend. check stool occult blood - plan per hospitalist severe pulm HTN, RV dilation, mod-severe TR: - prior w/u unrevealing (no congential anomaly on CTA, low prob V/Q, mild PFT abnormalities) - pt has declined RHC repeatedly--will try again once acute med issues are stabilized, ? can tolerate femoral approach with sedation (to be discussed as outpt0 - ? if LE edema represents component of TR/right sided HF--holding lasix for now given ANNA Paroxysmal atrial fibrillation: - not on av bushra blockers due to h/o junctional rhythm, sinus tessie - on eliquis due to [id number] of 4, same plan htn: -previously with severe HTN, controlled well once adherent to med regimenb -recently high dose hydralzaine held for ? drug-induced lupus. then ARB held for ANNA -LE edema may not tolerate amlodipine -avoid BBs, diltiazem, clonidine given h/o sinus node dysfunction -currently avoiding thiazides, RAAS blockers due to ANNA -bp currently stable, off meds -trend BPs--if elevates, will start amlodipine and except LE edema for now hld: -cont statin
[2018-07-12] MEDS ORDERED: POTASSIUM CHLORIDE TABS 20 MEQ TABLET.ER (FP) PO ONE (09:53)
[2018-07-12] MEDS: LACTOBACILLUS ACIDOPHILUS 1 TABLET PO SCH (10:22)
[2018-07-12] MEDS: APIXABAN 5 MG TABLET PO SCH ×2 (10:22→22:10)
[2018-07-12] MEDS ORDERED: PT OWN MED DRAWER 7, Y5N ONE ×2 (12:02→21:00)
[2018-07-12] MEDS: BRIMONIDINE TARTRATE 0.15% OPHTHALMIC 5 ML BOTTLE OU SCH ×2 (12:06→22:10)
--- NOTE | 2018-07-12 14:18 | PN ---
Progress Note (short form) - Note Progress Note: sim- recent lung infection one month ago, recent antibiotics (augmentin) sp acute pulmonary edema 2 weeks ago, discharged on cipro now with active sediment/dilute urine r/o AIN r/o GN w/u ordered serology c3 c4 requires authorization - call placed to environmental services supervisor pathologist
[2018-07-12 14:31] VITALS: BMI 21.1
--- NOTE | 2018-07-12 14:31 | CON.NEP ---
Consult Consult Specialty:: nephrology Referred by:: keke Reason for Consultation:: kidney failure - History of Present Illness Chief Complaint: kidney failure - Past Medical History Cardio/Vascular: Yes: AFIB, HTN, Hyperlipdemia Pulmonary: Yes: Asthma Renal/: Yes: Other (renal cyst and adrenal lesion) Endocrine: Yes: Diabetes Mellitus - Alcohol/Substance Use Hx Alcohol Use: No History of Substance Use: reports: None - Smoking History Smoking history: Never smoked Home Medications - Allergies Allergies/Adverse Reactions: Allergies Allergy/AdvReac Type Severity Reaction Status Date / Time melon Allergy Verified 07/11/18 15:05 strawberry Allergy Verified 07/11/18 15:05 lactose AdvReac Verified 07/11/18 15:05 - Home Medications Home Medications: Ambulatory Orders Albuterol Sulfate [Proair Hfa] 8.5 gm IH DAILY 06/02/18 Amlodipine Besylate 10 mg PO DAILY 06/02/18 Apixaban [Eliquis] 5 mg PO BID 06/02/18 Atorvastatin Calcium 20 mg PO DAILY 06/02/18 Brimonidine Tartrate [Alphagan 0.15% -] 1 drop OU BID 06/02/18 Albuterol 0.083% Nebulizer Sofia [Ventolin 0.083% Nebulizer Soln -] 1 neb NEB Q6H PRN #120 vial 06/17/18 Guaifenesin/D-Methorphan Hb [Diabetic Tussin Dm -] 5 ml PO Q6H PRN ml 06/17/18 Lactobacillus Acidophilus [Bacid -] 1 tab PO DAILY #30 tab 06/17/18 Ascorbic Acid [C-500] 500 mg PO DAILY 07/11/18 Ciprofloxacin HCl [Cipro] 500 mg PO BID 07/11/18 Folic Acid 1 mg PO DAILY 07/11/18 Nephrology Consult - Height Height: 5 ft 1 in - Weight Weight: 112 lb - BMI Body Mass Index (BMI): 21.1 - Lab Results CBC,BMP: CBC, BMP 07/12/18 06:45 07/12/18 06:45 Anion Gap: Anion Gap Anion Gap 7 MMOL/L (8-16) L 07/12/18 06:45 - Physical Examination Vital Signs: Vital Signs Temperature 98.1 F 07/12/18 09:30 Pulse Rate 50 L 07/12/18 09:30 Respiratory Rate 20 07/12/18 09:30 Blood Pressure 151/76 07/12/18 09:30 O2 Sat by Pulse Oximetry (%) 100 07/12/18 13:00 Assessment/Plan sim- recent lung infection one month ago, recent antibiotics (augmentin) s/p CTA in sep sp acute pulmonary edema 2 weeks ago, discharged on cipro was on hydralazine which was d/c along with augmentin on d/c from [facility] now with active sediment/dilute urine r/o AIN r/o GN r/o contrast induced nephropathy Severe anemia- unclear cause, transfused, oneliquis severe pulm HTN, RV dilation, mod-severe TR: unclear etiology - cath pending Paroxysmal atrial fibrillation: - [id number] of 4,on eliquis due to same plan htn: good control hydralazine stopped arb held due to sim tendency to le edema Defer amlodipine for now per cardiology and avoid bb's clonidine due to h/o sinus node disfunction hld: -cont statin w/u ordered serology c3 c4 requires authorization - call placed to [employer] machine operator pathologist dr bush [phone] Plan
--- NOTE | 2018-07-12 15:00 | EKG ---
Test Reason : Blood Pressure : / mmHG Vent. Rate : 060 BPM Atrial Rate : 060 BPM P-R Int : 178 ms QRS Dur : 106 ms QT Int : 434 ms P-R-T Axes : 074 049 041 degrees QTc Int : 434 ms NORMAL SINUS RHYTHM NORMAL ECG WHEN COMPARED WITH ECG OF 11-JUN-2018 02:04, SINUS RHYTHM HAS REPLACED JUNCTIONAL RHYTHM Confirmed by MD Wayne, Garry ([id number]) on 07/12/2018 3:00:50 PM Referred By: Confirmed By:Garry Black MD
[2018-07-13] MEDS ORDERED: amLODIPine BESYLATE 10 MG TABLET (FP) PO ONE (05:35)
--- NOTE | 2018-07-13 07:41 | PN ---
Physical Exam: SUBJECTIVE: Patient seen and examined at bedside. No overnight events. No new complaints. Denies CP,OCAMPO, SOB, abdominal pain, nausea or vomiting. OBJECTIVE: Vital Signs Period Temp Pulse Resp BP Sys/Red Pulse Ox Last 24 Hr 97.8 F-98.5 F 50-57 18-20 124-159/60-76 100-100 GENERAL: A&Ox3, NAD HEAD: NCAT,EYES: PERRL, EOMI, EARS, NOSE, THROAT: Oropharynx clear without exudates. Dry mucous membranes. NECK: No JVD LUNGS: Breath sounds equal, clear to auscultation bilaterally. No wheezes. On 2L via NC HEART: Regular rate and rhythm, 3/6 systolic murmur at LUSB ABDOMEN: Soft, nontender, not distended, + bowel sounds, no guarding EXTREMITIES: 2+ pulses, No calf tenderness. No peripheral edema. NEUROLOGICAL: Cranial nerves II-XII intact. Normal speech. Normal gait. SKIN: Warm, dry, no rashes or lesions noted, normal capillary refill. Laboratory Results - last 24 hr 07/12/18 07/12/18 07/12/18 06:45 06:45 13:55 WBC 6.6 RBC 2.81 L Hgb 9.0 L Hct 26.6 L D MCV 94.7 MCH 31.9 MCHC 33.7 RDW 14.6 Plt Count 242 MPV 8.1 Absolute Neuts (auto) 5.0 Neutrophils % 75.1 Lymphocytes % 13.4 Monocytes % 7.5 Eosinophils % 3.3 D Basophils % 0.7 Nucleated RBC % 0 Sodium 145 Potassium 2.9 L* Chloride 108 H Carbon Dioxide 30 Anion Gap 7 L BUN 28 H Creatinine 2.0 H Creat Clearance w eGFR 24.36 Random Glucose 82 Calcium 8.2 L Phosphorus 3.4 Magnesium 1.7 L Total Bilirubin 0.4 AST 32 ALT 31 Alkaline Phosphatase 91 Total Protein 6.7 Albumin 2.4 L Stool Occult Blood Negative Active Medications Generic Name Dose Route Start Last Admin Trade Name Freq PRN Reason Stop Dose Admin Apixaban 5 mg 07/11/18 22:00 07/12/18 22:10 Eliquis - PO 5 mg BID ANITA Administration Brimonidine Tartrate 1 drop 07/12/18 10:00 07/12/18 22:10 Alphagan 0.15% - OU 1 drop BID ANITA Administration Lactobacillus Acidophilus 1 tab 07/12/18 10:00 07/12/18 10:22 Bacid - PO 1 tab DAILY ANITA Administration ASSESSMENT/PLAN: 72 y/o F with PMHx of Pulmonary HTN, Afib (on eliquis) CHF admitted for ANNA of unclear etiology. Problem List - Problems (1) Acute kidney injury Assessment/Plan: Unclear etiology w/u ongoing. * Nephrology consult appreciated. * minimal improvement of renal function 2.0-->1.9 * questionable drug induced lupus ; Anti-histone Ab * Serology w/u pending r/o AIN, GN, and Hep panel pending * ARB and Lasix held. * Recent CTA - contrast induced nephro? * repeat BMP in AM (2) CHF (congestive heart failure) Assessment/Plan: severe pulm HTN, RV dilation, mod-severe TR * Cardiology consult appreciated. * Lasix and ARB held 2/2 ANNA * Patient has repeatedly refused RHC; will revisit once acute issues resolved. (3) A-fib Assessment/Plan: * [id number] of 4, on Eliquis. * not on av bushra blockers due to h/o junctional rhythm, sinus tessie (4) Asthma Assessment/Plan: stable at this point * supplemental O2 prn * Albuterol PRN. * maintain SPO2 >90% (5) HTN (hypertension) Assessment/Plan: Cardiology consult appreciated. * She was on high dose hydralazine but held 2/2 possible Drug induced Lupus. * avoid BBs, diltiazem, clonidine given h/o sinus node dysfunction * currently avoiding thiazides, RAAS blockers due to ANNA * bp currently stable, off meds * trend BPs--if elevates, will start amlodipine and except LE edema for now (6) DVT prophylaxis Assessment/Plan: Continue Eliquis. Visit type - Emergency Visit Emergency Visit: Yes ED Registration Date: 07/11/18 Care time: The patient presented to the Emergency Department on the above date and was hospitalized for further evaluation of their emergent condition. - New Patient This patient is new to me today: Yes Date on this admission: 07/13/18 - Critical Care Critical Care patient: No
[2018-07-13 07:50] LABS: HEMOGLOBIN 10.1 GM/dL (10.7-15.3); MCHC 32.7 g/dl (32.0-36.0); MEAN CELL VOLUME 94.9 fl (80-96); MEAN PLT VOLUME 8.1 fl (7.5-11.1); PLATELET COUNT 268 K/MM3 (134-434); RBC 3.27 M/mm3 (3.60-5.2); RDW 14.8 % (11.6-15.6); WHITE BLOOD COUNT 7.2 K/mm3 (4.0-10.0)
[2018-07-13 08:57] LABS: ANION GAP 9 MMOL/L (8-16); BLOOD UREA NITROGEN 24 mg/dL (7-18); CALCIUM 8.8 mg/dL (8.5-10.1); CHLORIDE 106 mmol/L (98-107); CO2 30 mmol/L (21-32); CREATININE 1.9 mg/dL (0.55-1.3); GLUCOSE,RANDOM 83 mg/dL (74-106); POTASSIUM 3.5 mmol/L (3.5-5.1); SODIUM 144 mmol/L (136-145)
[2018-07-13] MEDS ORDERED: PT OWN MED DRAWER 7, Y5N ONE (09:19)
[2018-07-13] MEDS: LACTOBACILLUS ACIDOPHILUS 1 TABLET PO SCH (09:35)
[2018-07-13] MEDS: APIXABAN 5 MG TABLET PO SCH ×2 (09:35→21:57)
[2018-07-13] MEDS: BRIMONIDINE TARTRATE 0.15% OPHTHALMIC 5 ML BOTTLE OU SCH ×2 (09:36→21:57)
--- NOTE | 2018-07-13 13:50 | CONSULT ---
Consult Consult Specialty:: Rheumatology - History of Present Illness History of Present Illness: 72 year old female with a PMHx of HTN, HLD, NIDDMII (Diet controlled), Pulmonary hypertension, Atrial Fibrillation, Asthma/Bronchitis, sinusitis, allergies, admitted with progressive renal insufficiency, rule out drug induced lupus secondary to Hydralazine, The patient was admitted one month ago with a 1 month history of progressive SOB and hemoptysis. A CT scan of the chest revealed extensive bilateral upper lobe infiltrates R>L, cardiomegaly and dilatation of main pulmonary artery. Echocardiogram with RV pressure elevated (40-50). RV systolic function moderately reduced and LV ejection fraction was normal. Labs at that time: creatinine 0.8, urinalysis had protein 1+ and blood 3+.ALEXIA 1: 640 with speckled pattern and anti-histone 1.2. Glomerular basement membrane antibody, anti-DNAds, ANCA, myeloperoxidase and Proteinase 3 antibodies were all negative, CH50 was normal. She was started on Furosemide. AT the present time she reports she does not have significant shortness of breath. On admission she noticed a mild purpuric rash in the right leg that resolved spontaneously and mild dry mouth. She denies other skin rash, oral ulcers, Raynaud's phenomenon, dry eyes or fever. Laboratory work-up revealed creatinine of 2.0, urinalysis with protein 2+ and blood 1+. WBC was 8.4 with 1.51% eosinophils and 2 days later WBC 6.6 and eosinophils 3.3. CXR infiltrative changes reported in previous admission resolved. Echocardiogram ( as per Dr. Gutierres note) LV function normal. TR with gradient >52. Furosemide and Hydralazine were discontinued. - History Source History Provided By: Patient, Medical Record - Past Medical History Cardio/Vascular: Yes: AFIB, HTN, Hyperlipdemia Pulmonary: Yes: Asthma Renal/: Yes: Other (renal cyst and adrenal lesion) Endocrine: Yes: Diabetes Mellitus - Alcohol/Substance Use Hx Alcohol Use: No History of Substance Use: reports: None - Smoking History Smoking history: Never smoked Home Medications - Allergies Allergies/Adverse Reactions: Allergies Allergy/AdvReac Type Severity Reaction Status Date / Time melon Allergy Verified 07/11/18 15:05 strawberry Allergy Verified 07/11/18 15:05 lactose AdvReac Verified 07/11/18 15:05 - Home Medications Home Medications: Ambulatory Orders Albuterol Sulfate [Proair Hfa] 8.5 gm IH DAILY 06/02/18 Amlodipine Besylate 10 mg PO DAILY 06/02/18 Apixaban [Eliquis] 5 mg PO BID 06/02/18 Atorvastatin Calcium 20 mg PO DAILY 06/02/18 Brimonidine Tartrate [Alphagan 0.15% -] 1 drop OU BID 06/02/18 Albuterol 0.083% Nebulizer Sofia [Ventolin 0.083% Nebulizer Soln -] 1 neb NEB Q6H PRN #120 vial 06/17/18 Guaifenesin/D-Methorphan Hb [Diabetic Tussin Dm -] 5 ml PO Q6H PRN ml 06/17/18 Lactobacillus Acidophilus [Bacid -] 1 tab PO DAILY #30 tab 06/17/18 Ascorbic Acid [C-500] 500 mg PO DAILY 07/11/18 Ciprofloxacin HCl [Cipro] 500 mg PO BID 07/11/18 Folic Acid 1 mg PO DAILY 07/11/18 Review of Systems - Review of Systems Constitutional: reports: No Symptoms Eyes: reports: No Symptoms HENT: reports: No Symptoms Neck: reports: No Symptoms Cardiovascular: reports: Shortness of Breath Respiratory: reports: No Symptoms Gastrointestinal: reports: No Symptoms Musculoskeletal: reports: Other (Mild tenderness in the right hip and both knees.) Physical Exam Vital Signs: Vital Signs Temperature 98.4 F 07/13/18 09:00 Pulse Rate 57 L 07/13/18 09:00 Respiratory Rate 18 07/13/18 09:00 Blood Pressure 137/52 L 07/13/18 09:00 O2 Sat by Pulse Oximetry (%) 100 07/13/18 11:08 Constitutional: Yes: No Distress Eyes: Yes: WNL HENT: Yes: WNL Neck: Yes: WNL Cardiovascular: Yes: Other (2/6 systolic murmur LSB) Respiratory: Yes: WNL Gastrointestinal: Yes: WNL Musculoskeletal: Yes: Other (Mild tenderness in knees.) Labs: CBC, BMP 07/13/18 07:30 07/13/18 07:30 Laboratory Tests 07/11/18 07/11/18 07/11/18 15:39 15:47 15:47 WBC 8.4 Eosinophils % 1.5 Calcium Phosphorus Magnesium Total Bilirubin AST ALT Alkaline Phosphatase B-Natriuretic Peptide 2215.2 H Total Protein Albumin Urine Appearance Urine pH Ur Specific [place] Urine Protein Urine Glucose (UA) Urine Ketones Urine Blood Urine Nitrite Urine Bilirubin Urine Urobilinogen Ur Leukocyte Esterase Negative Urine WBC (Auto) Urine RBC (Auto) Ur Epithelial Cells 07/12/18 07/12/18 07/12/18 03:05 06:45 06:45 WBC 6.6 Eosinophils % 3.3 D Calcium 8.2 L Phosphorus 3.4 Magnesium 1.7 L Total Bilirubin 0.4 AST 32 ALT 31 Alkaline Phosphatase 91 B-Natriuretic Peptide Total Protein 6.7 Albumin 2.4 L Urine Appearance Clear Urine pH 7.0 Ur Specific [place] 1.006 L Urine Protein 2+ H Urine Glucose (UA) Negative Urine Ketones Negative Urine Blood 3+ H Urine Nitrite Negative Urine Bilirubin Negative Urine Urobilinogen Negative Ur Leukocyte Esterase Negative Urine WBC (Auto) 39 Urine RBC (Auto) 27 Ur Epithelial Cells Rare Problem List - Problems (1) Drug-induced lupus erythematosus Assessment/Plan: The patient has been treated with Hydralazine for a long period of time. She has pulmonary hypertension, progressive renal insufficiency, abnormal urinary sediment and ALEXIA and anti-histone antibody positive. Drug induced lupus is a possibility however in the last admission she was started n Furosemide and the creatinine change might be pre-renal. Plan: I will obtain C3 and C4. Repeat UA. I will discuss with Renal obtaining kidney biopsy. I did not prescribe medications. Code(s): L93.2 - OTHER LOCAL LUPUS ERYTHEMATOSUS; T50.905A - ADVERSE EFFECT OF UNSP DRUG/MEDS/BIOL SUBST, INIT
--- NOTE | 2018-07-13 17:58 | PN ---
Progress Note (short form) - Note Progress Note: Patient is comfortable with no acute distress. no shortness of breath. Vital Signs Temperature 98.4 F 07/13/18 09:00 Pulse Rate 57 L 07/13/18 09:00 Respiratory Rate 18 07/13/18 09:00 Blood Pressure 137/52 L 07/13/18 09:00 O2 Sat by Pulse Oximetry (%) 100 07/13/18 11:08 GENERAL: A&Ox3, NAD HEAD: NCAT,EYES: PERRL, EOMI, EARS, NOSE, THROAT: Oropharynx clear without exudates. Dry mucous membranes. NECK: No JVD LUNGS: Breath sounds equal, clear to auscultation bilaterally. No wheezes. On 2L via NC HEART: Regular rate and rhythm, 3/6 systolic murmur at LUSB ABDOMEN: Soft, nontender, not distended, + bowel sounds, no guarding EXTREMITIES: 2+ pulses, No calf tenderness. 2 plus edema BL NEUROLOGICAL: Cranial nerves II-XII intact. Normal speech. Normal gait. SKIN: Warm, dry, no rashes or lesions noted, normal capillary refill. CBCD WBC 7.2 K/mm3 (4.0-10.0) 07/13/18 07:30 RBC 3.27 M/mm3 (3.60-5.2) L 07/13/18 07:30 Hgb 10.1 GM/dL (10.7-15.3) L 07/13/18 07:30 Hct 31.0 % (32.4-45.2) L D 07/13/18 07:30 MCV 94.9 fl (80-96) 07/13/18 07:30 MCHC 32.7 g/dl (32.0-36.0) 07/13/18 07:30 RDW 14.8 % (11.6-15.6) 07/13/18 07:30 Plt Count 268 K/MM3 (134-434) 07/13/18 07:30 MPV 8.1 fl (7.5-11.1) 07/13/18 07:30 CMP Sodium 144 mmol/L (136-145) 07/13/18 07:30 Potassium 3.5 mmol/L (3.5-5.1) 07/13/18 07:30 Chloride 106 mmol/L (98-107) 07/13/18 07:30 Carbon Dioxide 30 mmol/L (21-32) 07/13/18 07:30 Anion Gap 9 MMOL/L (8-16) 07/13/18 07:30 BUN 24 mg/dL (7-18) H 07/13/18 07:30 Creatinine 1.9 mg/dL (0.55-1.3) H 07/13/18 07:30 Creat Clearance w eGFR 25.84 (>60) 07/13/18 07:30 Random Glucose 83 mg/dL (74-106) 07/13/18 07:30 Calcium 8.8 mg/dL (8.5-10.1) 07/13/18 07:30 Total Bilirubin 0.4 mg/dL (0.2-1) 07/12/18 06:45 AST 32 U/L (15-37) 07/12/18 06:45 ALT 31 U/L (13-61) 07/12/18 06:45 Alkaline Phosphatase 91 U/L (45-117) 07/12/18 06:45 Total Protein 6.7 g/dl (6.4-8.2) 07/12/18 06:45 Albumin 2.4 g/dl (3.4-5.0) L 07/12/18 06:45 Current Medications Generic Name Dose Route Start Last Admin Trade Name Toribioq PRN Reason Stop Dose Admin Apixaban 5 mg 07/11/18 22:00 07/13/18 09:35 Eliquis - PO 5 mg BID ANITA Administration Brimonidine Tartrate 1 drop 07/12/18 10:00 07/13/18 09:36 Alphagan 0.15% - OU 1 drop BID ANITA Administration Lactobacillus Acidophilus 1 tab 07/12/18 10:00 07/13/18 09:35 Bacid - PO 1 tab DAILY ANITA Administration Home Medications Medication Instructions Recorded Albuterol Sulfate [Proair Hfa] 8.5 gm IH DAILY 06/02/18 Amlodipine Besylate 10 mg PO DAILY 06/02/18 Apixaban [Eliquis] 5 mg PO BID 06/02/18 Atorvastatin Calcium 20 mg PO DAILY 06/02/18 Brimonidine Tartrate [Alphagan 1 drop OU BID 06/02/18 0.15% -] Albuterol 0.083% Nebulizer Sofia 1 neb NEB Q6H PRN #120 vial 06/17/18 [Ventolin 0.083% Nebulizer Soln -] Guaifenesin/D-Methorphan Hb 5 ml PO Q6H PRN ml 06/17/18 [Diabetic Tussin Dm -] Lactobacillus Acidophilus [Bacid -] 1 tab PO DAILY #30 tab 06/17/18 Ascorbic Acid [C-500] 500 mg PO DAILY 07/11/18 Ciprofloxacin HCl [Cipro] 500 mg PO BID 07/11/18 Folic Acid 1 mg PO DAILY 07/11/18 Laboratory Tests 06/07/18 06/12/18 06/12/18 13:35 06:18 06:18 ALEXIA Screen Positive H ALEXIA Homogeneous Pattern TNP ALEXIA Nucleolar Pattern TNP ALEXIA Spindle Dajuan Pattern TNP ALEXIA Midbody Pattern TNP ALEXIA Centriole Pattern TNP ALEXIA Nuclear Dot Pattern TNP ALEXIA PCNA Pattern TNP ALEXIA Nuclear Membr Pat TNP ALEXIA Speckled Pattern 1:640 H ALEXIA Centromere Pattern TNP c-ANCA <1:20 Proteinase 3 (PR3) <3.5 p-ANCA <1:20 Atypical p-ANCA <1:20 Myeloperoxidase Ab <9.0 Sm (Holt) Antibody <0.2 G[employer]ATOR Antibody <0.2 Double Strand DNA Ab <1 Histone Antibodies 1.2 H Glomerular Base Memb Ab Tot Complement (CH50) > 60 07/12/18 19:10 ALEXIA Screen Pending ALEXIA Homogeneous Pattern ALEXIA Nucleolar Pattern ALEXIA Spindle Dajuan Pattern ALEXIA Midbody Pattern ALEXIA Centriole Pattern ALEXIA Nuclear Dot Pattern ALEXIA PCNA Pattern ALEXIA Nuclear Membr Pat ALEXIA Speckled Pattern ALEXIA Centromere Pattern c-ANCA Proteinase 3 (PR3) p-ANCA Atypical p-ANCA Myeloperoxidase Ab Sm (Holt) Antibody G[employer] B[employer]NER OPERATOR Antibody Double Strand DNA Ab Histone Antibodies Glomerular Base Memb Ab Pending Tot Complement (CH50) Echo 03/02 ([facility]): nl LV size and syst fxn; no LVH. slight mid-cavitary gradient (8). LVOT gradient 27 resting, up to 33 with valsalva. no mitral TEJA. dd1. hi LAP. nl LA size. mild-mod RVE, normal function. mild-mod DENISE. severe TR. PASP 67. neg bubble study. Echo 04/2016: LV normal in size, EJF 65-70%, no wall motion abnormalities, Interatrial septal aneurysm, no shunt seen, mild AR, moderate MR, moderate PH, mild to moderate OR Assessment/plan: 72 y/o F with PMHx of Pulmonary HTN, Afib (on eliquis) CHF, presents to [facility] with Cr 2.0 from her cardiologists (Dr. Gutierres) office. #NANA is 2.0 -->1.9 today: with baseline of 1.4 on the recent admission. with unknown etiology , Lasix and Arb. is discontinued nephro. consult appreciated. questionable drug induced Lupus due to hydralazine which is on hold, as per rhematology . Abnormal urinary sediment and ALEXIA and anti-histone antibody positive on the previous lab . C3 and C4 levels ordered. Renal kidney biopsy as per . # CHF, lasix is discontinued due to ANNA and ARB discontinued, will monitor # Paroxysmal Atrial Fibrillation with [id number] of 4, on eliquis, cardiology ( Dr. Gutierres) consult appreciated. # Anemia on Eliquis, will monitor, will get iron studies, will get stool occult if needed Gi consult. #HTN on Amlodipine as per cardio to avoid BBs, diltiazem, clonidine given h/o sinus node dysfunction # questionable Drug induced lupus , hydralazine is on hold #Asthma: continue home dose Albuterol, Proair # LE edema BL elevate legs, but also Norvasc can increase LE edema. will check with cardio whether to switch to another agent. #PPx DVT: Home dose Eliquis #HLD: cont statin DVt Px; Eliquis Visit type - Emergency Visit Emergency Visit: Yes ED Registration Date: 07/11/18 Care time: The patient presented to the Emergency Department on the above date and was hospitalized for further evaluation of their emergent condition. - New Patient This patient is new to me today: No - Critical Care Critical Care patient: No - Discharge Referral Referred to [facility] Med P.C.: No
[2018-07-13 19:31] LABS: URINE APPEARANCE CLEAR; URINE BILIRUBIN NEGATIVE (<2.0 mg/dL); URINE COLOR LTYELLOW; URINE GLUCOSE (UA) 1+ (NEGATIVE); URINE KETONE NEGATIVE (NEGATIVE); URINE LEUK ESTERASE TRACE (NEGATIVE); URINE NITRITE NEGATIVE (NEGATIVE); URINE PROTEIN 3+ (NEGATIVE); URINE UROBILINOGEN NEGATIVE mg/dL (0.2-1.0)
[2018-07-13 19:36] LABS: EPI CELLS RARE /HPF (FEW)
--- NOTE | 2018-07-13 19:50 | PN ---
Progress Note (short form) - Note Progress Note: covering dr hutton sim CHF recent drug-induced lupus afib asthma/copd Current Medications Apixaban (Eliquis -) 5 mg PO BID [facility] Last Admin: 07/13/18 09:35 Dose: 5 mg Brimonidine Tartrate (Alphagan 0.15% -) 1 drop OU BID ANITA Last Admin: 07/13/18 09:36 Dose: 1 drop Lactobacillus Acidophilus (Bacid -) 1 tab PO DAILY [facility] Last Admin: 07/13/18 09:35 Dose: 1 tab Last Vital Signs Temp Pulse Resp BP Pulse Ox 98.5 F 59 L 18 153/71 100 07/13/18 18:55 07/13/18 18:55 07/13/18 18:55 07/13/18 18:55 07/13/18 11:08 lungs clear heart lele reg abd soft nontender ext no edema CBC, BMP 07/13/18 07:30 07/13/18 07:30 IMP- sim multifactorial prerenal from chf/ r/o rocio- recent CTA at [facility] r/o AIN- recnt antibiotics augmentin and cipro proteinuria/hematuria afib on apixaban Plan f/u renal function blake i discussed renal biopsy with the patient- understands rationale
[2018-07-14 07:55] LABS: HEMATOCRIT 28.7 % (32.4-45.2); HEMOGLOBIN 9.3 GM/dL (10.7-15.3); MCH 30.9 pg (25.7-33.7); MCHC 32.6 g/dl (32.0-36.0); MEAN CELL VOLUME 94.8 fl (80-96); MEAN PLT VOLUME 8.3 fl (7.5-11.1); PLATELET COUNT 246 K/MM3 (134-434); RBC 3.03 M/mm3 (3.60-5.2); RDW 14.5 % (11.6-15.6); WHITE BLOOD COUNT 7.1 K/mm3 (4.0-10.0)
[2018-07-14 08:25] LABS: ALBUMIN 2.4 g/dl (3.4-5.0); ALK PHOS 91 U/L (45-117); ANION GAP 9 MMOL/L (8-16); BILIRUBIN,TOTAL 0.3 mg/dL (0.2-1); BLOOD UREA NITROGEN 26 mg/dL (7-18); CALCIUM 8.5 mg/dL (8.5-10.1); CHLORIDE 105 mmol/L (98-107); CO2 31 mmol/L (21-32); CREATININE 1.8 mg/dL (0.55-1.3); GLUCOSE,RANDOM 81 mg/dL (74-106); POTASSIUM 3.5 mmol/L (3.5-5.1); SGOT/AST 30 U/L (15-37); SGPT/ALT 28 U/L (13-61); SODIUM 145 mmol/L (136-145); TOT PROT 6.8 g/dl (6.4-8.2)
--- NOTE | 2018-07-14 08:31 | PN ---
Progress Note (short form) - Note Progress Note: RENAL DR PUGA [employer] APPRECIATED ALL NOTES OF BOTH RECENT VISITS REVIEWED PULM HTN PRESERVED EF AFIB OB ELIQUIS RECENT CONSOLIDATIONS ANTIGBM ANCA NEG ALEXIA POS HYDRALAZINE STOPPED HERE END OF MAY TO JUN 17 THEN WENT TO [facility] GOT CTA CR UP FROM 0.9 TO 2 POS BLOOD AND PROTEIN THOUGH ON ELIQUIS HENCE CANNOT BIOPSY CR INCHING DOWN XRAY CLEARED UP MEDS REVIEWED IF TREND CONTINUES DC HOME AWAIT C3 C4 ON EXAM BP OK OFF ARB AND NORVASC WILL DISCUSS WITH CARDIOLOGY TO PICK ONE AGENT FOR DC CR 1.8 TODAY IMPROVED
[2018-07-14] MEDS ORDERED: PT OWN MED DRAWER 7, Y5N ONE (09:57)
[2018-07-14] MEDS: BRIMONIDINE TARTRATE 0.15% OPHTHALMIC 5 ML BOTTLE OU SCH ×2 (10:37→21:59)
[2018-07-14] MEDS: LACTOBACILLUS ACIDOPHILUS 1 TABLET PO SCH (10:37)
[2018-07-14] MEDS: APIXABAN 5 MG TABLET PO SCH (10:38)
--- NOTE | 2018-07-14 15:02 | PN ---
Teaching Attending Note Name of Resident: Bridgette Ragsdale ATTENDING PHYSICIAN STATEMENT I saw and evaluated the patient. I reviewed the resident's note and discussed the case with the resident. I agree with the resident's findings and plan as documented. SUBJECTIVE: Patient is comfortable with no acute distress. OBJECTIVE: Vital Signs Temperature 98.4 F 07/14/18 10:00 Pulse Rate 56 L 07/14/18 10:00 Respiratory Rate 20 07/14/18 13:00 Blood Pressure 149/68 07/14/18 10:00 O2 Sat by Pulse Oximetry (%) 100 07/14/18 13:00 GENERAL: A&Ox3, NAD HEAD: NCAT,EYES: PERRL, EOMI, EARS, NOSE, THROAT: Oropharynx clear without exudates. Dry mucous membranes. NECK: No JVD LUNGS: Breath sounds equal, clear to auscultation bilaterally. No wheezes. On 2L via NC HEART: Regular rate and rhythm, 3/6 systolic murmur at LUSB ABDOMEN: Soft, nontender, not distended, + bowel sounds, no guarding EXTREMITIES: 2+ pulses, No calf tenderness. 2 plus edema BL NEUROLOGICAL: Cranial nerves II-XII intact. Normal speech. Normal gait. SKIN: Warm, dry, no rashes or lesions noted, normal capillary refill. CBCD WBC 7.1 K/mm3 (4.0-10.0) 07/14/18 07:00 RBC 3.03 M/mm3 (3.60-5.2) L 07/14/18 07:00 Hgb 9.3 GM/dL (10.7-15.3) L 07/14/18 07:00 Hct 28.7 % (32.4-45.2) L 07/14/18 07:00 MCV 94.8 fl (80-96) 07/14/18 07:00 MCHC 32.6 g/dl (32.0-36.0) 07/14/18 07:00 RDW 14.5 % (11.6-15.6) 07/14/18 07:00 Plt Count 246 K/MM3 (134-434) 07/14/18 07:00 MPV 8.3 fl (7.5-11.1) 07/14/18 07:00 CMP Sodium 145 mmol/L (136-145) 07/14/18 07:00 Potassium 3.5 mmol/L (3.5-5.1) 07/14/18 07:00 Chloride 105 mmol/L (98-107) 07/14/18 07:00 Carbon Dioxide 31 mmol/L (21-32) 07/14/18 07:00 Anion Gap 9 MMOL/L (8-16) 07/14/18 07:00 BUN 26 mg/dL (7-18) H 07/14/18 07:00 Creatinine 1.8 mg/dL (0.55-1.3) H 07/14/18 07:00 Creat Clearance w eGFR 27.50 (>60) 07/14/18 07:00 Random Glucose 81 mg/dL (74-106) 07/14/18 07:00 Calcium 8.5 mg/dL (8.5-10.1) 07/14/18 07:00 Total Bilirubin 0.3 mg/dL (0.2-1) 07/14/18 07:00 AST 30 U/L (15-37) 07/14/18 07:00 ALT 28 U/L (13-61) 07/14/18 07:00 Alkaline Phosphatase 91 U/L (45-117) 07/14/18 07:00 Total Protein 6.8 g/dl (6.4-8.2) 07/14/18 07:00 Albumin 2.4 g/dl (3.4-5.0) L 07/14/18 07:00 Current Medications Generic Name Dose Route Start Last Admin Trade Name Freq PRN Reason Stop Dose Admin Amlodipine Besylate 5 mg 07/15/18 10:00 Norvasc - PO DAILY ANITA Brimonidine Tartrate 1 drop 07/12/18 10:00 07/14/18 10:37 Alphagan 0.15% - OU 1 drop BID ANITA Administration Lactobacillus Acidophilus 1 tab 07/12/18 10:00 07/14/18 10:37 Bacid - PO 1 tab DAILY ANITA Administration Home Medications Medication Instructions Recorded Albuterol Sulfate [Proair Hfa] 8.5 gm IH DAILY 06/02/18 Amlodipine Besylate 10 mg PO DAILY 06/02/18 Apixaban [Eliquis] 5 mg PO BID 06/02/18 Atorvastatin Calcium 20 mg PO DAILY 06/02/18 Brimonidine Tartrate [Alphagan 1 drop OU BID 06/02/18 0.15% -] Albuterol 0.083% Nebulizer Sofia 1 neb NEB Q6H PRN #120 vial 06/17/18 [Ventolin 0.083% Nebulizer Soln -] Guaifenesin/D-Methorphan Hb 5 ml PO Q6H PRN ml 06/17/18 [Diabetic Tussin Dm -] Lactobacillus Acidophilus [Bacid -] 1 tab PO DAILY #30 tab 06/17/18 Ascorbic Acid [C-500] 500 mg PO DAILY 07/11/18 Ciprofloxacin HCl [Cipro] 500 mg PO BID 07/11/18 Folic Acid 1 mg PO DAILY 07/11/18 Echo 03/02 ([facility] [place]): nl LV size and syst fxn; no LVH. slight mid-cavitary gradient (8). LVOT gradient 27 resting, up to 33 with valsalva. no mitral TEJA. dd1. hi LAP. nl LA size. mild-mod RVE, normal function. mild-mod DENISE. severe TR. PASP 67. neg bubble study. Echo 04/2016: LV normal in size, EJF 65-70%, no wall motion abnormalities, Interatrial septal aneurysm, no shunt seen, mild AR, moderate MR, moderate PH, mild to moderate [place] Assessment/plan: 72 y/o F with PMHx of Pulmonary HTN, Afib (on eliquis) CHF, presents to [facility] with Cr 2.0 from her cardiologists (Dr. Gutierres) office. #ANNA is 2.0 -->1.9-->1.8 today: with baseline of 1.4 on the recent admission. with unknown etiology , Lasix and Arb. is discontinued by nephro. questionable drug induced Lupus due to hydralazine which is on hold, as per rhematology . Abnormal urinary sediment and ALEXIA and anti-histone antibody positive on the previous lab . C3 and C4 levels ordered. Renal kidney biopsy as per . # CHF, lasix is discontinued due to ANNA and ARB discontinued, will monitor # Paroxysmal Atrial Fibrillation with [id number] of 4, on eliquis, cardiology ( Dr. Gutierres) consult appreciated. # Anemia on Eliquis, will monitor, will get iron studies, will get stool occult if needed Gi consult. #HTN on Amlodipine as per cardio to avoid BBs, diltiazem, clonidine given h/o sinus node dysfunction # questionable Drug induced lupus , hydralazine is on hold #Asthma: continue home dose Albuterol, Proair # LE edema BL elevate legs, but also Norvasc can increase LE edema. will check with cardio whether to switch to another agent. #HLD: cont statin #PPx DVT: Home dose Eliquis
--- NOTE | 2018-07-14 16:06 | PN ---
Progress Note (short form) - Note Progress Note: Chief Complaint: ANNA s: stable cough, no dyspnea, no cp, palps, dizzy, lightheadedness Current Medications Amlodipine Besylate (Norvasc -) 5 mg PO DAILY [facility] Brimonidine Tartrate (Alphagan 0.15% -) 1 drop OU BID [facility] Last Admin: 07/14/18 10:37 Dose: 1 drop Lactobacillus Acidophilus (Bacid -) 1 tab PO DAILY [facility] Last Admin: 07/14/18 10:37 Dose: 1 tab Vital Signs: Vital Signs Temperature 98.0 F 07/12/18 06:00 Pulse Rate 83 07/12/18 06:00 Respiratory Rate 20 07/12/18 06:00 Blood Pressure 145/92 07/12/18 06:00 O2 Sat by Pulse Oximetry (%) 99 07/12/18 05:43 Constitutional: Yes: Well Nourished, No Distress Eyes: No: Sclera Icterus HENT: No: Nasal Congestion Neck: No: Decreased ROM Respiratory: Yes: CTA Bilaterally. No: Accessory Muscle Use, Rales, Wheezes Gastrointestinal: Yes: Normal Bowel Sounds. No: Distention, Hepatomegaly, Palpable Mass, Tenderness Cardiovascular: Yes: Regular Rate and Rhythm JVD: No Carotid Bruit: No PMI: Non-Displaced Heart Sounds: Yes: S1, S2. No: Gallop Murmur: No: Systolic Murmur, Diastolic Murmur Musculoskeletal: Yes: Other (No kyphosis) Extremities: No: Cool, Cyanosis Edema: Yes (1+ ankles bilaterally) Peripheral Pulses: 2+ Left Carotid, 2+ Right Carotid, 2+ Left Doralis Pedis, 2+ Right Dorsalis Pedis Integumentary: No: Jaundice Neurological: Yes: Alert, Oriented (x3) Psychiatric: No: Agitated Assessment/Plan CXR: clear lungs/pleura Echo 05/2018: nl lv, mod dilated rv, mod dec rv fcn, sev denise, mild-mod mr, sev tr, rvsp 40-50, mod ar, mild pr Echo 03/02 ([facility]): nl LV size and syst fxn; no LVH. slight mid-cavitary gradient (8). LVOT gradient 27 resting, up to 33 with valsalva. no mitral TEJA. dd1. hi LAP. nl LA size. mild-mod RVE, normal function. mild-mod DENISE. severe TR. PASP 67. neg bubble study. Echo 04/2016: 1. The left ventricular size is normal. 2. Overall left ventricular systolic function is normal with, an EF between 65 - 70 %. 3. No regional wall motion abnormalities were noted (apex not well seen). 4. The right ventricle is normal in size and function. 5. Left atrium is mildly dilated by volume. 6. The right atrium is markedly enlarged. 7. 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 8. There is mild aortic regurgitation. 9. The tricuspid valve appears structurally normal. 10. Moderate tricuspid regurgitation present; eccentric jet present, which hugs the interatrial septum--severity may be underestimated. 11. There is moderate pulmonary hypertension. 12. The right ventricular systolic pressure, as measured by Doppler, is 61 mmHg (assuming RA pressure of 3 mmHg). 13. [id number] pulmonic regurgitation. Stress Echo 08/02: 1:48 min (SOB). 75% MPHR. BP 140 rest, no change exercise. Non-ischemic stress test by EKG. +Atrial flutter with rapid conduction transiently seen during the recovery period, converting with evidence of brief sinus node arrest and junctional escape rhythm. Echo Findings: (1) No echocardiographic evidence of inducible ischemia--SUBMAX HR. (2) Moderate to severe (eccentric) TR seen. (3) Peak TR gradient is at least 52 mmHg. (4) Resting LV intracavitary gradient of 19 mmHg, rising to 86 mmHg on post- exercise images. (No systolic anterior motion of the mitral valve is seen at rest or post- exercise.) cta lungs 05/2018: no pe, +pna V/Q 04/2016: low prob for PE; central airway clumping/abnl ventil c/w airways dx and/or parenchymal dz PFTs 06/01: mild obstructive defect; mild decr DLCO; mild BD response a/p: 72 f hx pulm htn, htn, hld, here with sob, cough. ANNA: - recently admitted x 2 with PNA, started lasix 40 qd for LE edema, creat was 1.4 on d/c (10-14d ago)--creat 2.0 as outpt - may be 2/2 lupus - plan for renal biopsy, holding eliquis for 72 hours prior to procedure (last dose was 07/14 AM) - ARB (olmesartan 40) and lasix stopped 3 days prior to admission--continue holding anemia: - hgb 6's here 07/03, transfused-->7s on discharge - back down in 6's at [facility], transfused - was [address] hass[address] office this week - counts trending down here - holding eliquis for renal bx as above - plan per hospitalist severe pulm HTN, RV dilation, mod-severe TR: - prior w/u unrevealing (no congential anomaly on CTA, low prob V/Q, mild PFT abnormalities) - pt has declined RHC repeatedly--will try again once acute med issues are stabilized, ? can tolerate femoral approach with sedation (to be discussed as outpt0 - ? if LE edema represents component of TR/right sided HF--holding lasix for now given ANNA - renal bx as above for workup for lupus, possible etiology fo pulm htn Paroxysmal atrial fibrillation: - not on av bushra blockers due to h/o junctional rhythm, sinus tessie - on eliquis due to [id number] of 4, same plan htn: -previously with severe HTN, controlled well once adherent to med regimenb -recently high dose hydralzaine held for ? drug-induced lupus. then ARB held for ANNA -LE edema may not tolerate amlodipine -avoid BBs, diltiazem, clonidine given h/o sinus node dysfunction -currently avoiding thiazides, RAAS blockers due to ANNA -amlodipine started today, continue hld: -cont statin
--- NOTE | 2018-07-14 20:10 | PN ---
Physical Exam: SUBJECTIVE: Patient seen and examined this morning at bedside while eating her breakfast. No new complaints. Denies fevers, chills, chest pain, SOB, nausea, vomiting, dysuria, hematuria. OBJECTIVE: Vital Signs Period Temp Pulse Resp BP Sys/Red Pulse Ox Last 24 Hr 98.3 F-98.9 F 53-57 18-20 114-149/51-68 100-100 GENERAL: A&Ox3, NAD HEAD: NCAT EYES: PERRL, EOMI EARS, NOSE, THROAT: Oropharynx clear without exudates. Dry mucous membranes. NECK: No JVD LUNGS: Breath sounds equal, clear to auscultation bilaterally. No wheezes. On 2L via NC HEART: Regular rate and rhythm, 3/6 systolic murmur at LUSB ABDOMEN: Soft, nontender, not distended, + bowel sounds, no guarding MUSCULOSKELETAL: No CVA tenderness. EXTREMITIES: 2+ pulses, No calf tenderness. No peripheral edema. NEUROLOGICAL: Cranial nerves II-XII intact. Normal speech. Normal gait. SKIN: Warm, dry, no rashes or lesions noted, normal capillary refill. Laboratory Results - last 24 hr 07/14/18 07/14/18 07:00 07:00 WBC 7.1 RBC 3.03 L Hgb 9.3 L Hct 28.7 L MCV 94.8 MCH 30.9 MCHC 32.6 RDW 14.5 Plt Count 246 MPV 8.3 Sodium 145 Potassium 3.5 Chloride 105 Carbon Dioxide 31 Anion Gap 9 BUN 26 H Creatinine 1.8 H Creat Clearance w eGFR 27.50 Random Glucose 81 Calcium 8.5 Total Bilirubin 0.3 AST 30 ALT 28 Alkaline Phosphatase 91 Total Protein 6.8 Albumin 2.4 L Microbiology 07/11/18 15:47 Urine - Urine Clean Catch Urine Culture - Final NO GROWTH OBTAINED Active Medications Amlodipine Besylate (Norvasc -) 5 mg PO DAILY [facility] Brimonidine Tartrate (Alphagan 0.15% -) 1 drop OU BID [facility] Last Admin: 07/14/18 10:37 Dose: 1 drop Lactobacillus Acidophilus (Bacid -) 1 tab PO DAILY [facility] Last Admin: 07/14/18 10:37 Dose: 1 tab IMAGING: -CXR: Since the prior study of 06/15/2018 the congestive and infiltrative changes have resolved. There is still a large heart, unfolded aorta, prominent gopal and scoliosis. The angles are sharp and the soft tissues are intact. There are degenerative changes with wedging. Impression: Improvement. -Kidney/Pelvic/Bladder US: Abnormal kidneys suggestive of chronic or medical renal disease. Mild fullness of both renal collecting systems. Bilateral renal cysts. Small post void residual. Possible myomatous uterus. Consider dedicated pelvic sonogram -EKG: NORMAL SINUS RHYTHM, NORMAL ECG, VR 60, QTc 434 ASSESSMENT/PLAN: 72 y/o F with PMHx of Pulmonary HTN, Afib (on eliquis) CHF, presents to [facility] with Cr 2.0 from her cardiologists (Dr. Gutierres) office. #ANNA -Possibly due to CHF; Consider Lupus (Renal failure with active sediment, hx of Hydralazine use) -Avoid nephrotoxic agent -Nephrology (Dr. Cordova) Consulted -IV NS 500 mL to be given @ 42 mls/hr -Urine electrolytes, creatinine and Na pending -Renal Bx pending, Eliquis being held for >72 hrs (last dose was 07/14 AM) -C3, C4 pending -Rheum (Dr. Malave) consulted, appreciate rec's, Obtain C3, C4, Repeat UA #Atrial Fibrillation -Cardiology (Dr. 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 RA is severely dilated, E/A Reversal is consistent wit but not diagnostic of poor LV Compliance , LV Wall motion is normal, LV EF is normal -Continuie to monitor #Anemia -Trend Hgb/Hct -Iron studies pending #Asthma -Continue home dose Albuterol, Proair #FEN -500 mL NS; then PO Fluids -lytes wnl -Sodium controlled diet #PPx -DVT: Home dose Eliquis held Visit type - Emergency Visit Emergency Visit: Yes ED Registration Date: 07/14/18 Care time: The patient presented to the Emergency Department on the above date and was hospitalized for further evaluation of their emergent condition. - New Patient This patient is new to me today: No - Critical Care Critical Care patient: No - Discharge Referral Referred to [facility] No
[2018-07-15 00:08] LABS: HEP B CORE AB, IGM Negative (Negative); HEP B CORE AB, TOT Negative (Negative)
[2018-07-15 07:11] LABS: BASO % 0.9 % (0-2.0); EOS % 3.3 % (0-4.5); HEMATOCRIT 27.2 % (32.4-45.2); LYMPH % 16.2 % (8-40); MCH 31.4 pg (25.7-33.7); MEAN CELL VOLUME 95.2 fl (80-96); MEAN PLT VOLUME 8.1 fl (7.5-11.1); MONO % 7.5 % (3.8-10.2); NEUT % 72.1 % (42.8-82.8); PLATELET COUNT 243 K/MM3 (134-434); RBC 2.86 M/mm3 (3.60-5.2); RDW 14.4 % (11.6-15.6)
[2018-07-15 07:31] LABS: ANION GAP 4 MMOL/L (8-16); BLOOD UREA NITROGEN 22 mg/dL (7-18); CALCIUM 8.4 mg/dL (8.5-10.1); CHLORIDE 104 mmol/L (98-107); CO2 34 mmol/L (21-32); CREATININE 1.7 mg/dL (0.55-1.3); GLUCOSE,RANDOM 83 mg/dL (74-106); MAGNESIUM 1.6 mg/dL (1.8-2.4); PHOSPHOROUS 3.7 mg/dL (2.5-4.9); POTASSIUM 3.2 mmol/L (3.5-5.1); SODIUM 142 mmol/L (136-145)
[2018-07-15] MEDS ORDERED: MAGNESIUM SULF 50% (8.12 MEQ/2 ML-1 GM VIAL) IVPB ONE (09:15)
[2018-07-15] MEDS ORDERED: POTASSIUM CHLORIDE TABS 20 MEQ TABLET.ER (FP) PO ONE (09:15)
[2018-07-15] MEDS: BRIMONIDINE TARTRATE 0.15% OPHTHALMIC 5 ML BOTTLE OU SCH (09:27)
[2018-07-15] MEDS: LACTOBACILLUS ACIDOPHILUS 1 TABLET PO SCH (09:27)
[2018-07-15] MEDS: KCL 10 MEQ IVPB 10 MEQ/100 ML INFUS.BAG IVPB SCH ×3 (09:30→11:34)
[2018-07-15] MEDS ORDERED: amLODIPine BESYLATE 5 MG TABLET (FP) PO SCH (10:00)
--- NOTE | 2018-07-15 13:01 | PN ---
Teaching Attending Note Name of Resident: Bridgette Ragsdale ATTENDING PHYSICIAN STATEMENT I saw and evaluated the patient. I reviewed the resident's note and discussed the case with the resident. I agree with the resident's findings and plan as documented. SUBJECTIVE: Patient is comfortable with no acute distress. with no nausea or vomiting, no shortness of breath. OBJECTIVE: Vital Signs Temperature 98.5 F 07/15/18 06:00 Pulse Rate 55 L 07/15/18 06:00 Respiratory Rate 20 07/15/18 06:00 Blood Pressure 147/57 L 07/15/18 06:00 O2 Sat by Pulse Oximetry (%) 99 07/14/18 21:00 GENERAL: A&Ox3, NAD HEAD: NCAT,EYES: PERRL, EOMI, EARS, NOSE, THROAT: Oropharynx clear without exudates. Dry mucous membranes. NECK: No JVD LUNGS: Breath sounds equal, clear to auscultation bilaterally. No wheezes. On 2L via NC HEART: Regular rate and rhythm, 3/6 systolic murmur at LUSB ABDOMEN: Soft, nontender, not distended, + bowel sounds, no guarding EXTREMITIES: 2+ pulses, No calf tenderness. 1 plus edema BL NEUROLOGICAL: Cranial nerves II-XII intact. Normal speech. Normal gait. SKIN: Warm, dry, no rashes or lesions noted, normal capillary refill. CBCD WBC 7.0 K/mm3 (4.0-10.0) 07/15/18 06:30 RBC 2.86 M/mm3 (3.60-5.2) L 07/15/18 06:30 Hgb 9.0 GM/dL (10.7-15.3) L 07/15/18 06:30 Hct 27.2 % (32.4-45.2) L 07/15/18 06:30 MCV 95.2 fl (80-96) 07/15/18 06:30 MCHC 33.0 g/dl (32.0-36.0) 07/15/18 06:30 RDW 14.4 % (11.6-15.6) 07/15/18 06:30 Plt Count 243 K/MM3 (134-434) 07/15/18 06:30 MPV 8.1 fl (7.5-11.1) 07/15/18 06:30 CMP Sodium 142 mmol/L (136-145) 07/15/18 06:30 Potassium 3.2 mmol/L (3.5-5.1) L 07/15/18 06:30 Chloride 104 mmol/L (98-107) 07/15/18 06:30 Carbon Dioxide 34 mmol/L (21-32) H 07/15/18 06:30 Anion Gap 4 MMOL/L (8-16) L 07/15/18 06:30 BUN 22 mg/dL (7-18) H 07/15/18 06:30 Creatinine 1.7 mg/dL (0.55-1.3) H 07/15/18 06:30 Creat Clearance w eGFR 29.38 (>60) 07/15/18 06:30 Random Glucose 83 mg/dL (74-106) 07/15/18 06:30 Calcium 8.4 mg/dL (8.5-10.1) L 07/15/18 06:30 Total Bilirubin 0.3 mg/dL (0.2-1) 07/14/18 07:00 AST 30 U/L (15-37) 07/14/18 07:00 ALT 28 U/L (13-61) 07/14/18 07:00 Alkaline Phosphatase 91 U/L (45-117) 07/14/18 07:00 Total Protein 6.8 g/dl (6.4-8.2) 07/14/18 07:00 Albumin 2.4 g/dl (3.4-5.0) L 07/14/18 07:00 Current Medications Generic Name Dose Route Start Last Admin Trade Name Laura PRN Reason Stop Dose Admin Amlodipine Besylate 5 mg 07/15/18 10:00 07/15/18 09:27 Norvasc - PO 5 mg DAILY ANITA Administration Brimonidine Tartrate 1 drop 07/12/18 10:00 07/15/18 09:27 Alphagan 0.15% - OU 1 drop BID ANITA Administration Lactobacillus Acidophilus 1 tab 07/12/18 10:00 07/15/18 09:27 Bacid - PO 1 tab DAILY ANITA Administration Home Medications Medication Instructions Recorded Brimonidine Tartrate [Alphagan 1 drop OU BID 06/02/18 0.15% -] Lactobacillus Acidophilus [Bacid -] 1 tab PO DAILY #30 tab 06/17/18 Ascorbic Acid [C-500] 500 mg PO DAILY 07/11/18 Folic Acid 1 mg PO DAILY 07/11/18 Amlodipine Besylate [Norvasc -] 5 mg PO DAILY #30 tablet 07/15/18 Ferrous Sulfate [Feosol] 325 mg PO DAILY 07/15/18 Echo 03/02 ([facility]): nl LV size and syst fxn; no LVH. slight mid-cavitary gradient (8). LVOT gradient 27 resting, up to 33 with valsalva. no mitral TEJA. dd1. hi LAP. nl LA size. mild-mod RVE, normal function. mild-mod DENISE. severe TR. PASP 67. neg bubble study. Echo 04/2016: LV normal in size, EJF 65-70%, no wall motion abnormalities, Interatrial septal aneurysm, no shunt seen, mild AR, moderate MR, moderate PH, mild to moderate MS Assessment/plan: 72 y/o F with PMHx of Pulmonary HTN, Afib (on eliquis) CHF, presents to [facility] with Cr 2.0 from her cardiologists (Dr. Gutierres) office. #ANNA is 2.0 -->1.9-->1.8--> 1.7 today: with baseline of 1.4 on the recent admission. 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 Lasix and Arb. is discontinued by nephro. as per rhematology . Abnormal urinary sediment and ALEXIA and anti-histone antibody positive on the previous lab .C3 and C4 levels ordered. Renal kidney biopsy as per . #Diastolic CHF, lasix is discontinued due to ANNA and ARB discontinued, will monitor # Paroxysmal Atrial Fibrillation with [id number] of 4, on eliquis, is on hold since patient is having Liver Bx ,cardiology (Dr. Gutierres) consult appreciated. #HTN on Amlodipine as per cardio to avoid BBs, diltiazem, clonidine given h/o sinus node dysfunction. # questionable Drug induced lupus , hydralazine is on hold #Asthma: continue home dose Albuterol, Proair # LE edema BL elevate legs, but also Norvasc can increase LE edema. will check with cardio whether to switch to another agent. #HLD: cont statin #PPx DVT: Home dose Eliquis is on hold for patient will having biopsy renal
--- NOTE | 2018-07-15 15:03 | DS ---
Physical Exam: SUBJECTIVE: Patient seen and examined this morning at bedside. No new complaints. No acute overnight events as per nursing. Denies fevers, chills, chest pain, SOB, nausea, vomiting. OBJECTIVE: Vital Signs Period Temp Pulse Resp BP Sys/Red Pulse Ox Last 24 Hr 98.4 F-98.5 F 55-70 20-20 114-154/52-85 99 PHYSICAL EXAM GENERAL: A&Ox3, NAD HEAD: NCAT EYES: PERRL, EOMI EARS, NOSE, THROAT: Oropharynx clear without exudates. Dry mucous membranes. NECK: No JVD LUNGS: Breath sounds equal, clear to auscultation bilaterally. No wheezes. On 2L via NC HEART: Regular rate and rhythm, 3/6 systolic murmur at LUSB ABDOMEN: Soft, nontender, not distended, + bowel sounds, no guarding MUSCULOSKELETAL: No CVA tenderness. EXTREMITIES: 2+ pulses, No calf tenderness. No peripheral edema. NEUROLOGICAL: Cranial nerves II-XII intact. Normal speech. Normal gait. SKIN: Warm, dry, no rashes or lesions noted, normal capillary refill. LABS Laboratory Last Values WBC 7.0 K/mm3 (4.0-10.0) 07/15/18 06:30 RBC 2.86 M/mm3 (3.60-5.2) L 07/15/18 06:30 Hgb 9.0 GM/dL (10.7-15.3) L 07/15/18 06:30 Hct 27.2 % (32.4-45.2) L 07/15/18 06:30 MCV 95.2 fl (80-96) 07/15/18 06:30 MCH 31.4 pg (25.7-33.7) 07/15/18 06:30 MCHC 33.0 g/dl (32.0-36.0) 07/15/18 06:30 RDW 14.4 % (11.6-15.6) 07/15/18 06:30 Plt Count 243 K/MM3 (134-434) 07/15/18 06:30 MPV 8.1 fl (7.5-11.1) 07/15/18 06:30 Absolute Neuts (auto) 5.0 K/mm3 (1.5-8.0) 07/15/18 06:30 Neutrophils % 72.1 % (42.8-82.8) 07/15/18 06:30 Lymphocytes % 16.2 % (8-40) D 07/15/18 06:30 Monocytes % 7.5 % (3.8-10.2) 07/15/18 06:30 Eosinophils % 3.3 % (0-4.5) 07/15/18 06:30 Basophils % 0.9 % (0-2.0) 07/15/18 06:30 Nucleated RBC % 0 % (0-0) 07/15/18 06:30 PT with INR 20.70 SEC (9.7-13.0) H 07/11/18 15:47 INR 1.74 (0.83-1.09) H 07/11/18 15:47 Sodium 142 mmol/L (136-145) 07/15/18 06:30 Potassium 3.2 mmol/L (3.5-5.1) L 07/15/18 06:30 Chloride 104 mmol/L (98-107) 07/15/18 06:30 Carbon Dioxide 34 mmol/L (21-32) H 07/15/18 06:30 Anion Gap 4 MMOL/L (8-16) L 07/15/18 06:30 BUN 22 mg/dL (7-18) H 07/15/18 06:30 Creatinine 1.7 mg/dL (0.55-1.3) H 07/15/18 06:30 Creat Clearance w eGFR 29.38 (>60) 07/15/18 06:30 Random Glucose 83 mg/dL (74-106) 07/15/18 06:30 Calcium 8.4 mg/dL (8.5-10.1) L 07/15/18 06:30 Phosphorus 3.7 mg/dL (2.5-4.9) 07/15/18 06:30 Magnesium 1.6 mg/dL (1.8-2.4) L 07/15/18 06:30 Total Bilirubin 0.3 mg/dL (0.2-1) 07/14/18 07:00 AST 30 U/L (15-37) 07/14/18 07:00 ALT 28 U/L (13-61) 07/14/18 07:00 Alkaline Phosphatase 91 U/L (45-117) 07/14/18 07:00 B-Natriuretic Peptide 2215.2 pg/ml (5-125) H 07/11/18 15:39 Total Protein 6.8 g/dl (6.4-8.2) 07/14/18 07:00 Albumin 2.4 g/dl (3.4-5.0) L 07/14/18 07:00 Urine Color Ltyellow 07/13/18 18:25 Urine Appearance Clear 07/13/18 18:25 Urine pH 6.0 (5.0-8.0) 07/13/18 18:25 Ur Specific [place] 1.010 (1.010-1.035) 07/13/18 18:25 Urine Protein 3+ (NEGATIVE) H 07/13/18 18:25 Urine Glucose (UA) 1+ (NEGATIVE) H 07/13/18 18:25 Urine Ketones Negative (NEGATIVE) 07/13/18 18:25 Urine Blood 3+ (NEGATIVE) H 07/13/18 18:25 Urine Nitrite Negative (NEGATIVE) 07/13/18 18:25 Urine Bilirubin Negative (<2.0 mg/dL) 07/13/18 18:25 Urine Urobilinogen Negative mg/dL (0.2-1.0) 07/13/18 18:25 Ur Leukocyte Esterase Trace (NEGATIVE) 07/13/18 18:25 Urine WBC (Auto) 21 /hpf (3-5) 07/13/18 18:25 Urine RBC (Auto) 165 /hpf (0-3) 07/13/18 18:25 Ur Epithelial Cells Rare /HPF (FEW) 07/13/18 18:25 Urine Bacteria Rare /hpf (NONE SEEN) 07/12/18 03:05 Ur Random Sodium 84 MMOL/L (40-220) 07/12/18 03:05 Ur Random Potassium 13.0 MMOL/L (25-125) L 07/12/18 03:05 Ur Random Chloride 87 MMOL/L (110-250) L 07/12/18 03:05 Urine Creatinine 27.0 mg/dL (30-50) L 07/12/18 03:05 Stool Occult Blood Negative (NEGATIVE) 07/12/18 13:55 ALEXIA Screen Negative (.) 07/12/18 19:10 Complement C3 119 mg/dL (82-167) 07/14/18 11:00 Complement C4 40 mg/dL (14-44) 07/14/18 11:00 Hep Bs Antigen Negative (Negative) 07/13/18 07:30 Hep Bs Antibody Non reactive (.) 07/13/18 07:30 Hep B Core Total Ab Negative (Negative) 07/13/18 07:30 Hep B Core IgM Ab Negative (Negative) 07/13/18 07:30 Hepatitis Be Antibody Negative (Negative) 07/13/18 07:30 Hepatitis Be Antigen Negative (Negative) 07/13/18 07:30 Microbiology 07/11/18 15:47 Urine - Urine Clean Catch Urine Culture - Final NO GROWTH OBTAINED IMAGING: -CXR: Since the prior study of 06/15/2018 the congestive and infiltrative changes have resolved. There is still a large heart, unfolded aorta, prominent gopal and scoliosis. The angles are sharp and the soft tissues are intact. There are degenerative changes with wedging. Impression: Improvement. -Kidney/Pelvic/Bladder US: Abnormal kidneys suggestive of chronic or medical renal disease. Mild fullness of both renal collecting systems. Bilateral renal cysts. Small post void residual. Possible myomatous uterus. Consider dedicated pelvic sonogram -EKG: NORMAL SINUS RHYTHM, NORMAL ECG, VR 60, QTc 434 -Echo (06/04/18, prior visit): RV Systolilc pressure elevated at 40-50 mmHg, Severe TR, RV is moderately dilated, RV systolic function is moderately reduced. RA is severely dilated, E/A Reversal is consistent wit but not diagnostic of poor LV Compliance, LV Wall motion is normal, LV EF is normal HOSPITAL COURSE: Date of Admission:07/14/18 Date of Discharge: 07/15/18 72 y/o F with PMHx of Pulmonary HTN, Afib (on eliquis), Diastlic CHF, HLD, NIDDMII (diet controlled), Asthma presents to [facility] with Cr 2.0 from her cardiologists (Dr. Gutierres) office. Given the patients recent hx of a similar admission, with possible drug induced Lupus due to hydralazine, Nephrology and Rhematology were consulted and recommended obtaining C3, C4 and possible renal bx. Patients home dose Eliquis was held in anticipation for Renal bx. Cardiology was consulted and recommended Amlodipine for HTN (Hold Hydralazine for ?Drug induced lupus, ARB/ACEi for ANNA. Avoiding BBs, diltiazem, clonidine given h/o sinus node dysfunction). Her home dose lasix and olmesartan were held. Additionally, Cardiology determined there was no contraindication to the patient being discharged home off eliquis and having biopsy done as an outpatient. Patient was discharged with strict instructions to not use her home dose Eliquis and that radiology will call her to schedule her renal bx. Additionally she was instructed to follow up with Cardiology, Nephrology, Rheumatology and her PCP. Minutes to complete discharge: 50 Discharge Summary Reason For Visit: ACUTE KIDNEY INJURY Current Active Problems A-fib (Acute) Abnormal laboratory test (Acute) Acute kidney injury (Acute) CHF (congestive heart failure) (Acute) DVT prophylaxis (Acute) Drug-induced lupus erythematosus (Acute) Condition: Stable - Instructions Diet, Activity, Other Instructions: You presented to the hospital with Acute kidney injury. This could possibly be due to Lupus, an autoimmune disorder. You will benefit from a Kidney biopsy. This can occur on Saturday, 07/21. PLEASE DO NOT TAKE YOUR HOME DOSE ELIQUIS UNTIL THE BIOPSY IS COMPLETED. You will need to return to the hospital to have a Kidney biopsy done. Please call radiology department for the renal biopsy. Medication Changes: Please do not take your home doses of 1. Lasix 2. Valsartan 3. Eliquis The following medication doses were changed 1. Amlodipine, Stop taking 10mg, continue on 5mg Follow up with the following physicians: 1. Cardiology: Dr. Gutierres in one week 2. Rheumatology: Dr. Malave in one week to follow up on C3, C4 lab results 3. Nephrology: Dr. Steiner in one week 4. PCP: Dr. Jeffrey in one week Continue all your other medications as prescribed. Please return to the ER if you have any signs or symptoms of chest pain, shortness of breath, uncontrollable fever, chills, nausea, vomiting, numbness, tingling, or weakness in any part of your body, changes in vision, or slurred speech. Please return to the ER if symptoms persist, worsen, or new symptoms arise. Referrals: Tod Malave MD [Staff Physician] - 1 Week Alex Gutierres MD [Staff Physician] - 1 Week Alejandra Jeffrey MD [Staff Physician] - 1 Week Zacarias Cordova MD [Staff Physician] - 1 Week Disposition: HOME - Home Medications Comprehensive Discharge Medication List: Ambulatory Orders Brimonidine Tartrate [Alphagan 0.15% -] 1 drop OU BID 06/02/18 Lactobacillus Acidophilus [Bacid -] 1 tab PO DAILY #30 tab 06/17/18 Ascorbic Acid [C-500] 500 mg PO DAILY 07/11/18 Folic Acid 1 mg PO DAILY 07/11/18 Amlodipine Besylate [Norvasc -] 5 mg PO DAILY #30 tablet 07/15/18 Ferrous Sulfate [Feosol] 325 mg PO DAILY 07/15/18 This patient is new to me today: No Emergency Visit: Yes ED Registration Date: 07/14/18 Care time: The patient presented to the Emergency Department on the above date and was hospitalized for further evaluation of their emergent condition. Critical Care patient: No - Discharge Referral Referred to [facility] No
[2018-07-15] MEDS ORDERED: PNEUMOC 13-VAL CONJ-DIP CRM/PF 0.5 ML DISP.SYRIN IM ONE (15:15)
[2018-07-15 15:27] VITALS: BP 118/60; PULSE 75; TEMP 97.7
[2018-07-15 16:30] LABS: ANTI-DNAse B 212 U/mL (0-120)
[2018-07-16 08:06] LABS: FIBROSIS SCORE. 0.26 (0.00-0.21); HCV ALPHA 2 MACRO CHART 270 mg/dL (110-276); HCV GGT 96 IU/L (0-60); NECRO.INFLAM ACT.SCORE 0.16 (0.00-0.17); NECROINFLAM. ACTIVITY GRADE A0-No activity (.)
[2018-07-16 10:18] LABS: ANTIGLOMERULAR BASEMENT MEN.AB 4 units (0-20)
== END 2018-07-15 15:56 | disposition home or self-care (01) | DRG 683 ==
LOC: JER 14:52 → INTOOBSV 19:40 → UNDOADMOB 19:40 → J5S 19:40 → JER 22:48 → OBSVTOIN 07-14 14:07
PROVIDERS: ADMIT Internal Medicine; ATTEND Internal Medicine
DX: N17.9 Acute kidney failure, unspecified (principal); I50.32 Chronic diastolic (congestive) heart failure; I11.0 Hypertensive heart disease with heart failure; M32.0 Drug-induced systemic lupus erythematosus; T46.5X5D Adverse effect of other antihypertensive drugs, subsequent encounter; Z99.3 Dependence on wheelchair; I27.20 Pulmonary hypertension, unspecified; Z79.01 Long term (current) use of anticoagulants; Z99.81 Dependence on supplemental oxygen; E78.5 Hyperlipidemia, unspecified; E11.9 Type 2 diabetes mellitus without complications; J45.909 Unspecified asthma, uncomplicated; I48.0 Paroxysmal atrial fibrillation; N28.1 Cyst of kidney, acquired; D64.9 Anemia, unspecified; I36.1 Nonrheumatic tricuspid (valve) insufficiency
CPT/HCPCS: 36415; 71046-TC-FY; 76775-TC; 76856-TC; 80048; 80053; 81003; 81015; 82172; 82272; 82436; 82570; 82977; 83010; 83516; 83735; 83880; 83883; 84100; 84133; 84300; 84460; 85025; 85027; 85610; 86038; 86160; 86215; 86704; 86705; 86706; 86707; 87086; 87205; 90670; 93005; 93010; 99282-25; G0378

== ENCOUNTER 2018-07-22 07:29 | Day surgery (SDC) | payer OTHER ==
[2018-07-21 09:57] VITALS: BMI 21.5
[2018-07-22 07:57] VITALS: TEMP 98.2
[2018-07-22 07:57] LABS: BASO % 0.7 % (0-2.0); EOS % 3.4 % (0-4.5); HEMATOCRIT 29.3 % (32.4-45.2); LYMPH % 21.5 % (8-40); MCH 32.7 pg (25.7-33.7); MCHC 34.3 g/dl (32.0-36.0); MEAN CELL VOLUME 95.5 fl (80-96); MEAN PLT VOLUME 8.5 fl (7.5-11.1); MONO % 9.7 % (3.8-10.2); NEUT % 64.7 % (42.8-82.8); PLATELET COUNT 251 K/MM3 (134-434); RBC 3.07 M/mm3 (3.60-5.2); RDW 14.8 % (11.6-15.6); WHITE BLOOD COUNT 5.8 K/mm3 (4.0-10.0)
[2018-07-22 08:08] LABS: INR 1.11 (0.83-1.09); PROTHROMBIN TIME (PATIENT) 13.1 SEC (9.7-13.0)
[2018-07-22] MEDS ORDERED: MIDAZOLAM HCL 2 MG/2 ML SINGLE DOSE VIAL IVPUSH ONE ×2 (10:20→11:00)
[2018-07-22] MEDS ORDERED: LABETALOL HCL 5 MG/1 ML (100MG/20 ML VIAL) ONE (10:30)
[2018-07-22] MEDS ORDERED: SODIUM CHLORIDE 500 ML IV SCH (12:15)
[2018-07-22] MEDS ORDERED: ACETAMINOPHEN 325 MG TABLET (FP) ONE (15:12)
[2018-07-22] MEDS ORDERED: ACETAMINOPHEN 325 MG TABLET (FP) PO ONE (15:15)
[2018-07-22 15:58] VITALS: BP 168/79; PULSE 55
--- NOTE | 2018-08-05 19:33 | PATH ---
Surgical Pathology Report Patient Name: EMILE MADRIGAL [facility]. Rec. #: [id number] /Age/Gender: 1945 (Age: 73) / F Account: [id number] Location: RADIOLOGY INTER Taken: 07/22/2018 Received: 07/22/2018 Reported: 08/05/2018 Physicians: Yefri Mukherjee M.D. Specimen(s) Received RENAL BIOPSY Clinical History Acute kidney injury with unclear etiology Intraoperative Consult Diagnosis Renal biopsy: Glomeruli present. Zaid Vazquez M.D., 09/21/2017 Final Diagnosis RENAL BIOPSY: FOCAL GLOBAL GLOMERULOSCLEROSIS, MILD TO MODERATE. TUBULAR ATROPHY AND INTERSTITIAL FIBROSIS, MILD TO MODERATE. ARTERIOSCLEROSIS, MILD. SEE COMMENT. Comment: Immunofluorescence microscopy show no evidence of lupus nephritis or other glomerular disease of the immune complex type. No acute/active inflammatory injury is seen. The biopsy findings are non-specific and may represent mild arterionephrosclerosis related to hypertension and/or aging. Given the recent worsening kidney function, there may be a component of acute tubular injury, e.g., due to pre-renal factors. Clinical correlation is necessary. Electron microscopy is pending and may be contributory. Case sent for consultation to Dr. Heron Paul from [place], [place] ([id number]), the diagnosis above reflects his opinion. See complete report ([id number]) from [place], [place] for additional details. Electronically Signed Camelia Ferguson M.D. Gross Description Received in saline labeled "renal biopsy," are 3 zuñiga-red, cylindrical portions of soft tissue ranging from 0.5-1.5 cm in length and averaging 0.1 cm in diameter. An intraoperative gross consultation is performed. The specimen is divided, placed into 10% buffered formalin, Jose Daniel fixative and glutaraldehyde. The specimen is sent to [facility] for further studies. /07/22/2018 saudi07/22/2018
== END 2018-07-22 16:00 | disposition home or self-care (01) ==
LOC: JRADIR 07:29
PROVIDERS: ATTEND Internal Medicine Nephrology
PROC: 0TB03ZX Excision of Right Kidney, Percutaneous Approach, Diagnostic (ICD-10-PCS; principal; 2018-07-22)
PROC: BW40ZZZ Ultrasonography of Abdomen (ICD-10-PCS; 2018-07-22)
DX: R80.9 Proteinuria, unspecified (principal); R31.9 Hematuria, unspecified; I10 Essential (primary) hypertension; J45.909 Unspecified asthma, uncomplicated; I48.91 Unspecified atrial fibrillation; Z79.01 Long term (current) use of anticoagulants
CPT/HCPCS: 36415; 50200; 76098-TC-FY; 76775-TC; 76942-TC; 76998-TC; 85025; 85610; 87899; 88300-TC

== ENCOUNTER 2018-10-31 17:23 | Inpatient (IN) | payer OTHER ==
--- NOTE | 2018-10-31 18:26 | PDOC ---
History of Present Illness - General Chief Complaint: Shortness of Breath Stated Complaint: Shortness of Breath Time Seen by Provider: 10/31/18 18:26 History Source: Patient Exam Limitations: No Limitations Past History - Past Medical History Allergies/Adverse Reactions: Allergies Allergy/AdvReac Type Severity Reaction Status Date / Time melon Allergy Verified 10/31/18 18:06 strawberry Allergy Verified 10/31/18 18:06 lactose AdvReac Verified 10/31/18 18:06 Home Medications: Ambulatory Orders Brimonidine Tartrate [Alphagan 0.15% -] 1 drop OU BID 06/02/18 Lactobacillus Acidophilus [Bacid -] 1 tab PO DAILY #30 tab 06/17/18 Ferrous Sulfate [Feosol] 325 mg PO DAILY 07/15/18 Albuterol Sulfate [Proair Hfa] 8.5 gm IH DAILY 07/21/18 Apixaban [Eliquis] 5 mg PO DAILY 07/21/18 Amlodipine Besylate [Norvasc -] 10 mg PO DAILY 10/31/18 Furosemide [Lasix -] 40 mg PO DAILY 10/31/18 Anemia: Yes Asthma: Yes (bronchial asthma) Cancer: No Cardiac Disorders: Yes (afib;sick sinus syndrome) CVA: No COPD: No (oxygen dependent 2l nc) CHF: Yes (recent exacerbation of CHF) Dementia: No Diabetes: Yes GI Disorders: No Disorders: No HTN: Yes Hypercholesterolemia: Yes (HLD) Liver Disease: No Seizures: No Thyroid Disease: No - Immunization History Immunization Up to Date: Yes - Suicide/Smoking/Psychosocial Hx Smoking History: Never smoked Have you smoked in the past 12 months: No Information on smoking cessation initiated: No Hx Alcohol Use: No Drug/Substance Use Hx: No Substance Use Type: None Hx Substance Use Treatment: No *Physical Exam - Vital Signs Last Vital Signs Temp Pulse Resp BP Pulse Ox 100.3 F H 86 22 H 125/55 L 92 L 10/31/18 17:58 10/31/18 17:58 10/31/18 17:58 10/31/18 17:58 10/31/18 17:58 Moderate Sedation - Procedure Monitoring Vital Signs: Procedure Monitoring Vital Signs Temperature 100.3 F H 10/31/18 17:58 Pulse Rate 86 10/31/18 17:58 Respiratory Rate 22 H 10/31/18 17:58 Blood Pressure 125/55 L 10/31/18 17:58 O2 Sat by Pulse Oximetry (%) 92 L 10/31/18 17:58 ED Treatment Course - LABORATORY CBC & Chemistry Diagram: 10/31/18 18:39 10/31/18 18:39 Medical Decision Making - Medical Decision Making Pt was seen at bedside, also will be seen by attending Dr. Carmona. Pt presenting with complaints of b/l LE edema, LE weakness, difficulty ambulating, and overall fatigue x3 days. Pt states she feels like her "legs are heavy" Pts lasix dose was increased on Saturday, however she missed her appointment with her photo journalist (Dr. Gan) on Saturday due to the poor weather. She was also recently started on prednisone for the drug-induced lupus (2/2 hydralazine use) . Vitals stable, pt afebrile. Pt in NAD, normal body habitus. PE showed pt alert and oriented. morning show host generally intact, muscular strength and sensation intact. Eyes PERRLA, EOMI. Oropharynx without erythema or exudates. No nasal congestion , hearing intact. Clear heart sounds, S1/S2, no JVD, b/l pedal edema, or heart murmur. Clear lung sounds, no respiratory distress, wheezes, crackles, or accessory muscle use. No abdominal or CVA tenderness to palpation, no rebound, no guarding. Abdomen soft, non-distended, and with normoactive bowel sounds. Skin without rash on extremities, pt has vesicular lesions on R thigh and open lesion on b/l vaginal labia with thick white discharge on the outer labia. No vaginal bleeding or discharge noted. Considering sepsis (mild fever, recent pneumonia) vs CHF exacerbation vs drug- induced lupus (b/l LE edema, weakness); vaginal discharge -- herpetic vs janine after taking steroids, pt does not take insulin every for DM. Ordered work-up including CBC, CMP, troponin, ECG, coags, lactic acid, BNP, blood cultures, UA, urine culture, chest x-ray. Provided 1 g ofirmev for improvement of fever. Will hold fluid due to overload, unlikely sepsis at this point. Will continue to reassess pt and monitor for symptomatic improvement. 10/31/18 19:09 Influenza negative CBC WNL but appears hemoconcentrated Lactic 3.6 -- pt fluid overloaded, cannot provide additional fluids at this time Trop .25 -- likely demand -- sepsis vs hypovolemia; will repeat troponin in 3 hours 10/31/18 19:46 ECG: PACs (variable atrial complexes), intervals otherwise WNL, no significant ST segment changes. CMP: BUN/Cr 44/1.7 (pre-renal, Cr similar to prior visit), glucose 826 -- providing 500 mL fluid, 6 units SQ insulin to start -- will reassess and then increase to insulin drip and IV fluids. Will reassess and start insulin drip with continued fluids. 10/31/18 20:28 Repeat lactic and cardiac profile sent to lab. Lab states never received original UA, despite lab results stating "pending". Will place tejeda catheter, as pt likely to go to ICU and will likely need urine monitoring, possible 24-hour collection considering new lupus and HHS. 10/31/18 21:20 Acetone trace. Repeat lactic acid improving 3.6 to 2.4 -- will continue insulin and hydration Second troponin 0.28 -- will continue to monitor -- likely demand from dehydration 10/31/18 21:44 Urine negative for infection Repeat BGM 600s. Will provide 1/2 NS with 20 meq K and insulin drip. Paging ICU and hospitalist team for admission. 10/31/18 22:41 Spoke with ICU and hospitalist team -- pt accepted for continued glucose monitoring and insulin drip. ICU team at bedside. Pt BP stable, lying comfortably. 10/31/18 23:33 *DC/Admit/Observation/Transfer Diagnosis at time of Disposition: Drug-induced lupus erythematosus, Elevated lactic acid level, Elevated troponin , Hyperglycemic hyperosmolar nonketotic coma CHF (congestive heart failure) Qualifiers: Heart failure type: systolic Heart failure chronicity: chronic Qualified Code(s ): I50.22 - Chronic systolic (congestive) heart failure - Discharge Dispostion Condition at time of disposition: Stable Decision to Admit order: Yes - Referrals - Patient Instructions - Post Discharge Activity
[2018-10-31] MEDS ORDERED: ACETAMINOPHEN 1000 MG/100 ML VIAL (NON FORMULARY) IVPB ONE (18:38)
[2018-10-31 19:01] LABS: BASO % 0.2 % (0-2.0); HEMATOCRIT 41.2 % (32.4-45.2); HEMOGLOBIN 13.6 GM/dL (10.7-15.3); MCHC 32.9 g/dl (32.0-36.0); MEAN CELL VOLUME 100.5 fl (80-96); MEAN PLT VOLUME 10.5 fl (7.5-11.1); MONO % 2.4 % (3.8-10.2); NEUT % 91.4 % (42.8-82.8); PLATELET COUNT 167 K/MM3 (134-434); RDW 14.1 % (11.6-15.6); WHITE BLOOD COUNT 9.3 K/mm3 (4.0-10.0)
[2018-10-31 19:03] LABS: VENOUS PC02 53.3 mmHg (38-52); VENOUS PH 7.41 (7.32-7.42); VENOUS PO2 39.2 mmHg (28-48)
[2018-10-31] MEDS ORDERED: ACETAMINOPHEN INJECTION 100 ML IVPB ONE (19:07)
[2018-10-31 19:18] LABS: ACTIVATED PTT 30.8 SECONDS (25.2-36.5); INR 0.98 (0.83-1.09); PROTHROMBIN TIME (PATIENT) 11.6 SEC (9.7-13.0)
--- NOTE | 2018-10-31 19:29 | PDOC ---
Attending Attestation - HPI HPI: 10/31/18 19:37 The patient is a 73 year old female, with a significant PMH of pulmonary hypertension, atrial fibrillation on Eliquis, CHF, recent admission to [facility] for bilateral pneumonia with anemia requiring transfusion, lupus , who presents to the emergency department with worsening bilateral lower extremity edema and weakness. The patient states she has been unable to ambulate secondary to the lower extremity edema. The patient also endorses feeling fatigued but states she otherwise feels fine. The patient states she has had increased urinary frequency since increasing her lasix on Saturday and reports she is currently on steroid treatment for her lupus. The patient denies chest pain, shortness of breath, headache and dizziness. Denies fever, chills, nausea, vomit, diarrhea and constipation. Denies dysuria, urgency and hematuria. Allergies: melon, strawberry, lactose Documentation prepared by Marcelo Juan, acting as certified medical records coder for Christy Carmona MD. - Physicial Exam PE: 10/31/18 20:21 GENERAL: Afebrile. Awake, alert, and fully oriented, in no acute distress HEAD: No signs of trauma EYES: PERRLA, EOMI, sclera anicteric, conjunctiva clear ENT: Auricles normal inspection, hearing grossly normal, nares patent, oropharynx clear without exudates. Moist mucosa NECK: Normal ROM, supple, no lymphadenopathy, JVD, or masses LUNGS: (+) Crackles auscultated in the left base. No wheezes. HEART: (+) Irregularly irregular rate and rhythm, rate controlled. normal S1 and S2, no murmurs, rubs or gallops ABDOMEN: Soft, nontender, normoactive bowel sounds. No guarding, no rebound. No masses EXTREMITIES: (+) 2+ pitting edema to knees bilaterally. Normal range of motion. No clubbing or cyanosis. No cords, erythema, or tenderness NEUROLOGICAL: Moving all extremities. Cranial nerves II through XII grossly intact. Normal speech. SKIN: Warm, Dry, normal turgor, no rashes or lesions noted. <Marcelo Juan - Last Filed: 10/31/18 20:21> - Resident Resident Name: Ann Shields - ED Attending Attestation I have performed the following: I have examined & evaluated the patient, The case was reviewed & discussed with the resident, I agree w/resident's findings & plan - Medical Decision Making 10/31/18 19:33 Pt comes with bilat leg heaviness and weakness. She has pitting edema to her knees and she has elevated lactic acid, as well as WBC significant leftward shift to 91%.SHe has a low grade temp. Pt states that she has no chest pain, no SOB. but she has generalized weakness. 10/31/18 20:29 Pt's CXR shows cardiomegaly but clear lung gamboa; she has a nodule in the right liung base. 10/31/18 22:08 Lactic acid is going down; 2nd trop is slightly elevated; however CPK is low at 66.. 10/31/18 22:46 Pt's corrected Sodium is 140s. Pt will be hydrated with 1/2 NS. She will be admitted to the ICU. Blood sugar is still >600s <Christy Carmona - Last Filed: 10/31/18 22:46>
[2018-10-31] MEDS ORDERED: MAGNESIUM SULF 50% (8.12 MEQ/2 ML-1 GM VIAL) IVPB ONE (19:30)
[2018-10-31] MEDS ORDERED: MAGNESIUM SULF 50% (8.12 MEQ/2 ML-1 GM VIAL) ONE (19:43)
[2018-10-31 20:14] LABS: ALBUMIN 2.1 g/dl (3.4-5.0); ALK PHOS 142 U/L (45-117); ANION GAP 9 MMOL/L (8-16); BILIRUBIN,TOTAL 0.4 mg/dL (0.2-1); BLOOD UREA NITROGEN 44 mg/dL (7-18); CHLORIDE 93 mmol/L (98-107); CO2 33 mmol/L (21-32); CREATININE 1.7 mg/dL (0.55-1.3); N-TERMINAL BNP 891.3 pg/ml (5-450); POTASSIUM 4.4 mmol/L (3.5-5.1); SGOT/AST 28 U/L (15-37); SGPT/ALT 55 U/L (13-61); SODIUM 136 mmol/L (136-145); TOT PROT 5.7 g/dl (6.4-8.2)
[2018-10-31 20:19] LABS: GLUCOSE,RANDOM 826 mg/dL (74-106)
[2018-10-31] MEDS ORDERED: SODIUM CHLORIDE 0.9% 500 ML INFUS.BAG IV ONE (20:20)
[2018-10-31] MEDS ORDERED: INSULIN REGULAR HUMAN 100 UNITS/ML *VIAL SQ ONE (20:22)
[2018-10-31] MEDS ORDERED: INSULIN REGULAR HUMAN 100 UNITS/ML *VIAL ONE (20:31)
[2018-10-31 20:51] LABS: PLATELET ESTIMATE DECREASED
[2018-10-31 22:10] LABS: URINE APPEARANCE SLCLOUDY; URINE BILIRUBIN NEGATIVE (<2.0 mg/dL); URINE COLOR LTYELLOW; URINE GLUCOSE (UA) 3+ (NEGATIVE); URINE KETONE NEGATIVE (NEGATIVE); URINE LEUK ESTERASE NEGATIVE (NEGATIVE); URINE NITRITE NEGATIVE (NEGATIVE); URINE PROTEIN 2+ (NEGATIVE); URINE UROBILINOGEN NEGATIVE mg/dL (0.2-1.0)
[2018-10-31 22:18] LABS: EPI CELLS FEW /HPF (FEW)
[2018-10-31] MEDS ORDERED: INSULIN REGULAR 100 UNITS in SODIUM CHLORIDE 99 ML IVPB SCH (22:30)
[2018-10-31] MEDS ORDERED: SODIUM CHLORIDE 0.45%/POT 20 MEQ/1,000 ML INFUS.BAG IV SCH (22:30)
--- NOTE | 2018-10-31 22:53 | PN ---
Teaching Attending Note Name of Resident: Harsh Singh ATTENDING PHYSICIAN STATEMENT I saw and evaluated the patient. I reviewed the resident's note and discussed the case with the resident. I agree with the resident's findings and plan as documented. SUBJECTIVE: Patient is a 73 year old woman with a PMH of pulmonary hypertension, "asthma", diet-controlled DM, pulmonary nodules on CT (2014), hemoptysis, atrial fibrillation on Eliquis, right ventricular-CHF, Home oxygen use, sinus node dysfuction, CKD, anema, ?drug-induced Lupus (hydralazine), recent admission to [facility] for bilateral pneumonia with anemia requiring transfusion who presents to the ER with worsening bilateral lower extremity edema and weakness. The patient states she has been unable to ambulate due to the lower extremity edema. She has been feeling fatigued but states she otherwise feels fine. She also has had increased urinary frequency since increasing her lasix on Saturday and reports she is currently on steroid treatment for her lupus. The patient denies chest pain, shortness of breath, headache and dizziness. Denies fever, chills, nausea, vomit, diarrhea and constipation. Denies dysuria, urgency and hematuria. OBJECTIVE: Alert Vital Signs Period Temp Pulse Resp BP Sys/Red Pulse Ox Last 24 Hr 99.2 F-100.3 F 57-86 18-22 97-125/55-78 92-100 HEENT: No Jaundice, eye redness or discharge, PERRLA, EOMI. Normocephalic, atraumatic. External ears are normal and hearing is grossly intact. No nasal discharge. Neck: Supple, nontender. No palpable adenopathy or thyromegaly. No JVD Chest: Good effort. Clear to auscultation and percussion. Heart: Regular. No S3, rub or murmur Abdomen: Not distended, soft, nontender and no HSM. No rebound or guarding. Normoactive bowel sounds. Ext: Peripheral pulses intact. Bilateral leg edema. Skin: Warm and dry. No petechiae, rash or ecchymosis. Neuro: Alert. Oriented x3. CN 2-12 grossly intact. Sensation grossly intact in all four extremities and DTR are symmetric. Current Medications Generic Name Dose Route Start Last Admin Trade Name Freq PRN Reason Stop Dose Admin Insulin Human Regular 100 100 mls @ 5.17 mls/hr 10/31/18 22:30 units/ Sodium Chloride IVPB TITR ANITA Protocol 0.1 UNITS/KG/HR Potassium Chloride/Sodium Chloride 20 meq in 1,000 mls @ 75 mls/hr 10/31/18 22 :30 1/2ns+20meq Kcl IV [facility] Home Medications Medication Instructions Recorded Brimonidine Tartrate [Alphagan 1 drop OU BID 06/02/18 0.15% -] Lactobacillus Acidophilus [Bacid -] 1 tab PO DAILY #30 tab 06/17/18 Ferrous Sulfate [Feosol] 325 mg PO DAILY 07/15/18 Albuterol Sulfate [Proair Hfa] 8.5 gm IH DAILY 07/21/18 Apixaban [Eliquis] 5 mg PO DAILY 07/21/18 Amlodipine Besylate [Norvasc -] 10 mg PO DAILY 10/31/18 Furosemide [Lasix -] 40 mg PO DAILY 10/31/18 Abnormal Lab Results 10/31/18 10/31/18 10/31/18 18:39 18:39 18:39 MCV 100.5 H Absolute Neuts (auto) 8.5 H Neutrophils % 91.4 H D Neutrophils % (Manual) 90.0 H Lymphocytes % 6.0 L D Lymphocytes % (Manual) 6.0 L D Monocytes % 2.4 L Monocytes % (Manual) 3 L D POC VBG pCO2 53.3 H Mixed VBG HCO3 33.0 H Chloride 93 L Carbon Dioxide 33 H BUN 44 H Creatinine 1.7 H Random Glucose 826 H* Lactic Acid Alkaline Phosphatase 142 H Troponin I B-Natriuretic Peptide 891.3 H Total Protein 5.7 L Albumin 2.1 L Urine Protein Urine Glucose (UA) 10/31/18 10/31/18 10/31/18 18:39 18:39 21:00 MCV Absolute Neuts (auto) Neutrophils % Neutrophils % (Manual) Lymphocytes % Lymphocytes % (Manual) Monocytes % Monocytes % (Manual) POC VBG pCO2 Mixed VBG HCO3 Chloride Carbon Dioxide BUN Creatinine Random Glucose Lactic Acid 3.6 H* 2.4 H* Alkaline Phosphatase Troponin I 0.25 H B-Natriuretic Peptide Total Protein Albumin Urine Protein Urine Glucose (UA) 10/31/18 10/31/18 21:00 21:54 MCV Absolute Neuts (auto) Neutrophils % Neutrophils % (Manual) Lymphocytes % Lymphocytes % (Manual) Monocytes % Monocytes % (Manual) POC VBG pCO2 Mixed VBG HCO3 Chloride Carbon Dioxide BUN Creatinine Random Glucose Lactic Acid Alkaline Phosphatase Troponin I 0.28 H B-Natriuretic Peptide Total Protein Albumin Urine Protein 2+ H Urine Glucose (UA) 3+ H D ASSESSMENT AND PLAN: 1. Hyperglycemic hyperosmolar state - No obvious precipitating factor in a patient who had "diet-controlled" DM. She says she has been taking an oral agent for DM recently and has also been on ?prednisone. Will call her Pharmacy tomorrow to get a current list of her medications since she does not remember. Had low grade fever on admission but no other evidence of infection. No acute infiltrate on CXR. Flu swab is negative and blood cultures have been sent. Will repeat CBC and temp and trend Lactic acid level. No indication for antibiotics at this time. Started on IV insulin drip and IV KCL and will be managed in the ICU according to protocol. Worsening leg edema likely due to CHF and/or amlodipine therapy. Cannot diurese her at this time until SOL[employer]ER is treated. ECHO from 06/04/18 showed moderately reduced RV systolic function and normal LVEF. Will not be aggressive with IV fluids in view of CHF history and worsening leg edema. Hold amlodipine for now. Unusual for leg edema to be getting worse at a time that "osmotic diuresis" due to hyperglycemia should be "dehydrating" her. Elevated troponin most likely due to demand ischemia, CKD and CHF. EKG shows NSR with no significant ST-T wave changes. Get daily weight. Will trend troponin to rule out ACS. Consult cardiology. During her most recent admission at [facility] there was a plan to get out patient kidney biopsy as well as right heart catheterization after discharge. Patient says she had a kidney biopsy done but does not remember the results. Once stable will consult Endocrine to suggest best outpatient diabetes regimen for her. Will provide comprehensive diabetes care with patient teaching and counseling about the importance of adherence to prescribed diabetes regimen, euglycemia, eye care and foot care. 2. Hypoalbuminemia - Possibly due to combined effects of proteinuria, malnutrition and inflammation associated with comorbid chronic conditions. Will ensure adequate dietary protein intake and also consult row boss hoeing. 3. CKD - Has multiple risk factors for CKD. Will consult nephrology to reconsider use of ACEI/ARB in view of nephrosis. Avoid nephrotoxic agents such as NSAIDS, aminoglycosides, contrast dyes and certain Alternative medicine products. 4. DVT prophylaxis - On Eliquis for Afib 5. Advance directives - Full code
[2018-11-01] MEDS ORDERED: INSULIN REGULAR HUMAN 100 UNITS/ML *VIAL IVPUSH ONE (00:19)
--- NOTE | 2018-11-01 00:48 | HP ---
CHIEF COMPLAINT: LE swelling HISTORY OF PRESENT ILLNESS: 73 y/o F w/PMH of pulmonary HTN, A-fib (on eliquis), CHF, CKD, DM presents to the ER for progressively worsening LE edema over the last 2-3 weeks. She has required assistance of a cane or another person to help her walk over the last week and she decided to come into the ER today. Her lasix was increased to 40mg earlier this week but has not helped to decrease her LE swelling. She is a somewhat poor historian and was unable to explain why her hydralazine was stopped and does not remember some medications she is taking or has taken in the recent past including steroids/prednisone. She reports having a kidney biopsy done in the last year but does not remember the results, only that there was "protein in the kidney". ER course was notable for: (1) Insulin drip, CXR (2) (3) PAST MEDICAL HISTORY: pulmonary HTN, A-fib (on eliquis), CHF, DM Social History: Smoking: denies Alcohol: denies Drugs: denies Family History: n-c Allergies melon Allergy (Verified 10/31/18 18:06) strawberry Allergy (Verified 10/31/18 18:06) lactose Adverse Reaction (Verified 10/31/18 18:06) HOME MEDICATIONS: Home Medications Medication Instructions Recorded Brimonidine Tartrate [Alphagan 1 drop OU BID 06/02/18 0.15% -] Lactobacillus Acidophilus [Bacid -] 1 tab PO DAILY #30 tab 06/17/18 Ferrous Sulfate [Feosol] 325 mg PO DAILY 07/15/18 Albuterol Sulfate [Proair Hfa] 8.5 gm IH DAILY 07/21/18 Apixaban [Eliquis] 5 mg PO DAILY 07/21/18 Amlodipine Besylate [Norvasc -] 10 mg PO DAILY 10/31/18 Furosemide [Lasix -] 40 mg PO DAILY 10/31/18 REVIEW OF SYSTEMS CONSTITUTIONAL: Absent: fever, chills HEENT: Absent: visual changes CARDIOVASCULAR: Absent: chest pain, syncope, palpitations, irregular heart rate, lightheadedness RESPIRATORY: Absent: cough, shortness of breath GASTROINTESTINAL: Absent: abdominal pain, nausea, vomiting GENITOURINARY: +frequency Absent: dysuria NEUROLOGIC: Absent: headache, dizziness, MSK:+difficulty ambulating PHYSICAL EXAMINATION Vital Signs - 24 hr 10/31/18 10/31/18 10/31/18 17:58 18:17 18:27 Temperature 100.3 F H Pulse Rate 86 83 Pulse Rate [ Apical] Respiratory 22 H Rate Blood Pressure 125/55 L Blood Pressure [Left Arm] O2 Sat by Pulse 92 L 100 100 Oximetry (%) 10/31/18 10/31/18 10/31/18 19:50 20:51 20:53 Temperature 99.2 F Pulse Rate Pulse Rate [ 83 57 L Apical] Respiratory 20 18 Rate Blood Pressure Blood Pressure 97/78 116/67 [Left Arm] O2 Sat by Pulse 100 100 100 Oximetry (%) GENERAL: Awake, alert, and fully oriented, in no acute distress. EYES: extraocular movements intact, sclera anicteric, conjunctiva clear EARS, NOSE, THROAT: Ears normal, nares patent, oropharynx clear without exudates. Moist mucous membranes. NECK: Normal range of motion, supple, no JVD LUNGS: Breath sounds equal, clear to auscultation bilaterally. No wheezes, and no crackles. No accessory muscle use. HEART: Irregularly irregular ABDOMEN: Soft, nontender, not distended, normoactive bowel sounds LOWER EXTREMITIES: 3+ B/L LE pitting edema NEUROLOGICAL: Cranial nerves II-XII grossly intact. Normal speech. Gait not observed. PSYCHIATRIC: Cooperative. Good eye contact. SKIN: Warm, dry Laboratory Results - last 24 hr 10/31/18 10/31/18 10/31/18 18:09 18:30 18:39 WBC 9.3 RBC 4.10 Hgb 13.6 Hct 41.2 D MCV 100.5 H MCH 33.0 MCHC 32.9 RDW 14.1 Plt Count 167 D MPV 10.5 D Absolute Neuts (auto) 8.5 H Total Counted 100 Neutrophils % 91.4 H D Neutrophils % (Manual) 90.0 H Band Neutrophils % 1.0 Lymphocytes % 6.0 L D Lymphocytes % (Manual) 6.0 L D Monocytes % 2.4 L Monocytes % (Manual) 3 L D Eosinophils % 0.0 D Basophils % 0.2 Nucleated RBC % 0 Platelet Estimate Decreased Platelet Comment No clumping noted PT with INR INR PTT (Actin FS) VBG pH POC VBG pCO2 POC VBG pO2 Mixed VBG HCO3 Sodium Potassium Chloride Carbon Dioxide Anion Gap BUN Creatinine Creat Clearance w eGFR POC Glucometer Random Glucose Lactic Acid Calcium Total Bilirubin AST ALT Alkaline Phosphatase Creatine Kinase Troponin I B-Natriuretic Peptide Total Protein Albumin Urine Color Cancelled Urine Appearance Cancelled Urine pH Cancelled Ur Specific [place] Cancelled Urine Protein Cancelled Urine Glucose (UA) Cancelled Urine Ketones Cancelled Urine Blood Cancelled Urine Nitrite Cancelled Urine Bilirubin Cancelled Urine Urobilinogen Cancelled Ur Leukocyte Esterase Cancelled Urine WBC (Auto) Urine RBC (Auto) Ur Epithelial Cells Acetone, Qual Influenza A (Rapid) Negative Influenza B (Rapid) Negative 10/31/18 10/31/18 10/31/18 18:39 18:39 18:39 WBC RBC Hgb Hct MCV MCH MCHC RDW Plt Count MPV Absolute Neuts (auto) Total Counted Neutrophils % Neutrophils % (Manual) Band Neutrophils % Lymphocytes % Lymphocytes % (Manual) Monocytes % Monocytes % (Manual) Eosinophils % Basophils % Nucleated RBC % Platelet Estimate Platelet Comment PT with INR 11.60 INR 0.98 PTT (Actin FS) 30.8 VBG pH 7.41 POC VBG pCO2 53.3 H POC VBG pO2 39.2 Mixed VBG HCO3 33.0 H Sodium 136 Potassium 4.4 Chloride 93 L Carbon Dioxide 33 H Anion Gap 9 BUN 44 H Creatinine 1.7 H Creat Clearance w eGFR 29.30 POC Glucometer Random Glucose 826 H* Lactic Acid Calcium 9.0 Total Bilirubin 0.4 AST 28 ALT 55 Alkaline Phosphatase 142 H Creatine Kinase Troponin I B-Natriuretic Peptide 891.3 H Total Protein 5.7 L Albumin 2.1 L Urine Color Urine Appearance Urine pH Ur Specific [place] Urine Protein Urine Glucose (UA) Urine Ketones Urine Blood Urine Nitrite Urine Bilirubin Urine Urobilinogen Ur Leukocyte Esterase Urine WBC (Auto) Urine RBC (Auto) Ur Epithelial Cells Acetone, Qual Influenza A (Rapid) Influenza B (Rapid) 10/31/18 10/31/18 10/31/18 18:39 18:39 21:00 WBC RBC Hgb Hct MCV MCH MCHC RDW Plt Count MPV Absolute Neuts (auto) Total Counted Neutrophils % Neutrophils % (Manual) Band Neutrophils % Lymphocytes % Lymphocytes % (Manual) Monocytes % Monocytes % (Manual) Eosinophils % Basophils % Nucleated RBC % Platelet Estimate Platelet Comment PT with INR INR PTT (Actin FS) VBG pH POC VBG pCO2 POC VBG pO2 Mixed VBG HCO3 Sodium Potassium Chloride Carbon Dioxide Anion Gap BUN Creatinine Creat Clearance w eGFR POC Glucometer Random Glucose Lactic Acid 3.6 H* 2.4 H* Calcium Total Bilirubin AST ALT Alkaline Phosphatase Creatine Kinase Troponin I 0.25 H B-Natriuretic Peptide Total Protein Albumin Urine Color Urine Appearance Urine pH Ur Specific [place] Urine Protein Urine Glucose (UA) Urine Ketones Urine Blood Urine Nitrite Urine Bilirubin Urine Urobilinogen Ur Leukocyte Esterase Urine WBC (Auto) Urine RBC (Auto) Ur Epithelial Cells Acetone, Qual Influenza A (Rapid) Influenza B (Rapid) 10/31/18 10/31/18 10/31/18 21:00 21:00 21:54 WBC RBC Hgb Hct MCV MCH MCHC RDW Plt Count MPV Absolute Neuts (auto) Total Counted Neutrophils % Neutrophils % (Manual) Band Neutrophils % Lymphocytes % Lymphocytes % (Manual) Monocytes % Monocytes % (Manual) Eosinophils % Basophils % Nucleated RBC % Platelet Estimate Platelet Comment PT with INR INR PTT (Actin FS) VBG pH POC VBG pCO2 POC VBG pO2 Mixed VBG HCO3 Sodium Potassium Chloride Carbon Dioxide Anion Gap BUN Creatinine Creat Clearance w eGFR POC Glucometer Random Glucose Lactic Acid Calcium Total Bilirubin AST ALT Alkaline Phosphatase Creatine Kinase 66 Troponin I 0.28 H B-Natriuretic Peptide Total Protein Albumin Urine Color Ltyellow Urine Appearance Slcloudy Urine pH 5.0 Ur Specific [place] 1.021 Urine Protein 2+ H Urine Glucose (UA) 3+ H D Urine Ketones Negative Urine Blood Negative Urine Nitrite Negative Urine Bilirubin Negative Urine Urobilinogen Negative Ur Leukocyte Esterase Negative Urine WBC (Auto) 1 Urine RBC (Auto) 2 Ur Epithelial Cells Few Acetone, Qual Positive,trace Influenza A (Rapid) Influenza B (Rapid) 10/31/18 22:09 WBC RBC Hgb Hct MCV MCH MCHC RDW Plt Count MPV Absolute Neuts (auto) Total Counted Neutrophils % Neutrophils % (Manual) Band Neutrophils % Lymphocytes % Lymphocytes % (Manual) Monocytes % Monocytes % (Manual) Eosinophils % Basophils % Nucleated RBC % Platelet Estimate Platelet Comment PT with INR INR PTT (Actin FS) VBG pH POC VBG pCO2 POC VBG pO2 Mixed VBG HCO3 Sodium Potassium Chloride Carbon Dioxide Anion Gap BUN Creatinine Creat Clearance w eGFR POC Glucometer > 600 Random Glucose Lactic Acid Calcium Total Bilirubin AST ALT Alkaline Phosphatase Creatine Kinase Troponin I B-Natriuretic Peptide Total Protein Albumin Urine Color Urine Appearance Urine pH Ur Specific [place] Urine Protein Urine Glucose (UA) Urine Ketones Urine Blood Urine Nitrite Urine Bilirubin Urine Urobilinogen Ur Leukocyte Esterase Urine WBC (Auto) Urine RBC (Auto) Ur Epithelial Cells Acetone, Qual Influenza A (Rapid) Influenza B (Rapid) Imaging: CXR: no acute pathology Active Medications Insulin Human Regular 100 (units/ Sodium Chloride) 100 mls @ 5.17 mls/hr IVPB TITR ANITA; Protocol Last Admin: 11/01/18 00:19 Dose: 0.1 units/kg/hr, 5.17 mls/hr Potassium Chloride/Sodium Chloride (1/2ns+20meq Kcl) 20 meq in 1,000 mls @ 75 mls/hr IV ASDIR ANITA Last Admin: 11/01/18 00:19 Dose: 75 mls/hr ASSESSMENT/PLAN: 73 y/o F w/PMH of pulmonary HTN, A-fib (on eliquis), CHF, DM presents to the ER for progressively worsening LE edema over the last 2-3 weeks. Found to have elevated glucose and in hyperosmolar hyperglycemic state. -Hyperosmolar hyperglycemic state -Serum osmolality 333, glucose 826, pH 7.41 (on VBG), bicarb >18, no anion gap -Insulin drop 0.1unit/kg/hr -Fluids at slower rate (50ml/hr) due to LE edema -1/2NS+20meq @ 50ml/hr -q1h BGMs; q2h BMP until serum osm <315. If glucose is below 300 change fluids to D5 1/2NS -Lactic acid q2h until below 2 -Endocrine consult -Worsening LE edema -possibly due to hx of CHF vs CCB (amlodipine) -Fluids slowly for HHS. Consider diuresis after resolution of HHS. -f/u LE U/S -Elevated trops -continue to trend. Likely demand. Also with hx of CKD. -Cardiology consult -Fever -Recheck CBC for signs of infection -Recheck temp -CKD -stable -nephro consult -monitor BUN/Cr -avoid nephrotoxic agents -Afib -currently rate controlled -eliquis - will dose at 2.5mg bid (Cr >1.5 and weight <60kg) -HTN -will hold amlodipine in setting of worsening LE edema -monitor blood pressure -DVT ppx -on eliquis -FEN -1/2NS @ 50 ml/hr -Monitor electrolytes q2h -NPO currently -Dispo: admit to ICU Visit type - Emergency Visit Emergency Visit: Yes ED Registration Date: 10/31/18 Care time: The patient presented to the Emergency Department on the above date and was hospitalized for further evaluation of their emergent condition. - New Patient This patient is new to me today: Yes Date on this admission: 11/01/18 - Critical Care Critical Care patient: Yes Total Critical Care Time (in minutes): 50 Critical Care Statement: The care of this patient involved high complexity decision making to prevent further life threatening deterioration of the patient 's condition and/or to evaluate & treat vital organ system(s) failure or risk of failure.
[2018-11-01] MEDS ORDERED: INSULIN REGULAR HUMAN 100 UNITS/ML *VIAL ONE (00:58)
--- NOTE | 2018-11-01 01:00 | CONSULT ---
Consultation: REQUESTING PROVIDER: CONSULT REQUEST: We have been asked to medically evaluate this patient for ICU admission HISTORY OF PRESENT ILLNESS: Patient is a 73 year old female with history of hypertension, hyperlipidemia, diabetes mellitus (non insulin dependent), Afib on Eliquis, CKD, presents with complaint of lower extremity swelling for the past two weeks. She denies any trauma to her lower extremities, or inciting event. Patient denies any recent changes in medication. She denies prior occurrence of similar symptoms. Patient endorses history of diabetes mellitus that was initially treated with Metformin , however stopped due to "kidney damage". She admits increased thirst, and urination to the point that she was occasionally incontinent, over the past three weeks. She denies taking Insulin in the past. Currently, denies subjective fevers, chills, shortness of breath, chest pain, palpitations, abdominal pain, nausea, vomiting. REVIEW OF SYSTEMS: CONSTITUTIONAL: Absent: fever, chills, diaphoresis, generalized weakness, malaise, loss of appetite, weight change HEENT: Absent: rhinorrhea, nasal congestion, throat pain, throat swelling, difficulty swallowing, mouth swelling, ear pain, eye pain, visual changes CARDIOVASCULAR: Absent: chest pain, syncope, palpitations, irregular heart rate, lightheadedness , peripheral edema RESPIRATORY: Absent: cough, shortness of breath, dyspnea with exertion, orthopnea, wheezing, stridor, hemoptysis GASTROINTESTINAL: Absent: abdominal pain, abdominal distension, nausea, vomiting, diarrhea, constipation, melena, hematochezia GENITOURINARY: Admits: urinary frequency. Absent: dysuria, hesitancy, hematuria, flank pain, genital pain MUSCULOSKELETAL: Admits: lower extremiy weakness, swelling. Absent: myalgia, arthralgia, joint swelling, back pain, neck pain SKIN: Absent: rash, itching, pallor HEMATOLOGIC/IMMUNOLOGIC: Absent: easy bleeding, easy bruising, lymphadenopathy, frequent infections ENDOCRINE: Absent: unexplained weight gain, unexplained weight loss, heat intolerance, cold intolerance NEUROLOGIC: Absent: headache, paresthesias, dizziness, unsteady gait, seizure, mental status changes PSYCHIATRIC: Absent: anxiety, depression, suicidal or homicidal ideation, hallucinations. PHYSICAL EXAMINATION Vital Signs - 24 hr 10/31/18 10/31/18 10/31/18 17:58 18:17 18:27 Temperature 100.3 F H Pulse Rate 86 83 Pulse Rate [ Apical] Respiratory 22 H Rate Blood Pressure 125/55 L Blood Pressure [Left Arm] O2 Sat by Pulse 92 L 100 100 Oximetry (%) 10/31/18 10/31/18 10/31/18 19:50 20:51 20:53 Temperature 99.2 F Pulse Rate Pulse Rate [ 83 57 L Apical] Respiratory 20 18 Rate Blood Pressure Blood Pressure 97/78 116/67 [Left Arm] O2 Sat by Pulse 100 100 100 Oximetry (%) GENERAL: Patient is awake, alert, and fully oriented, in no acute distress. HEAD: Normocephalic, atraumatic. EYES: Pupils equal, round and reactive to light, extraocular movements intact without nystagmus, sclera anicteric, conjunctiva clear. EARS, NOSE, THROAT: Oropharynx clear without exudates. Dry mucous membranes. NECK: Supple without lymphadenopathy. LUNGS: Breath sounds equal, without wheezing or crackles auscultated bilaterally. No accessory muscle use. HEART: Regular rate and rhythm, normal S1 and S2 without murmur, rub or gallop. ABDOMEN: Soft, nontender, not distended, normoactive bowel sounds X4 quadrants. No guarding, no rebound tenderness. MUSCULOSKELETAL: Normal range of motion at all joints. UPPER EXTREMITIES: 2+ radial pulses, warm, well-perfused. LOWER EXTREMITIES: 2+ dorsalis pedis pulses, warm, well-perfused. Right calf noted larger than left without calf tenderness bilaterally. 2+ pitting edema bilateral lower extremities. PSYCHIATRIC: Cooperative. Good eye contact. Appropriate mood and affect. NEUROLOGICAL: Cranial nerves II-XII intact. Normal speech. SKIN: Warm, dry Laboratory Results - last 24 hr 10/31/18 10/31/18 10/31/18 18:09 18:30 18:39 WBC 9.3 RBC 4.10 Hgb 13.6 Hct 41.2 D MCV 100.5 H MCH 33.0 MCHC 32.9 RDW 14.1 Plt Count 167 D MPV 10.5 D Absolute Neuts (auto) 8.5 H Total Counted 100 Neutrophils % 91.4 H D Neutrophils % (Manual) 90.0 H Band Neutrophils % 1.0 Lymphocytes % 6.0 L D Lymphocytes % (Manual) 6.0 L D Monocytes % 2.4 L Monocytes % (Manual) 3 L D Eosinophils % 0.0 D Basophils % 0.2 Nucleated RBC % 0 Platelet Estimate Decreased Platelet Comment No clumping noted PT with INR INR PTT (Actin FS) VBG pH POC VBG pCO2 POC VBG pO2 Mixed VBG HCO3 Sodium Potassium Chloride Carbon Dioxide Anion Gap BUN Creatinine Creat Clearance w eGFR POC Glucometer Random Glucose Lactic Acid Calcium Total Bilirubin AST ALT Alkaline Phosphatase Creatine Kinase Troponin I B-Natriuretic Peptide Total Protein Albumin Urine Color Cancelled Urine Appearance Cancelled Urine pH Cancelled Ur Specific [place] Cancelled Urine Protein Cancelled Urine Glucose (UA) Cancelled Urine Ketones Cancelled Urine Blood Cancelled Urine Nitrite Cancelled Urine Bilirubin Cancelled Urine Urobilinogen Cancelled Ur Leukocyte Esterase Cancelled Urine WBC (Auto) Urine RBC (Auto) Ur Epithelial Cells Acetone, Qual Influenza A (Rapid) Negative Influenza B (Rapid) Negative 10/31/18 10/31/18 10/31/18 18:39 18:39 18:39 WBC RBC Hgb Hct MCV MCH MCHC RDW Plt Count MPV Absolute Neuts (auto) Total Counted Neutrophils % Neutrophils % (Manual) Band Neutrophils % Lymphocytes % Lymphocytes % (Manual) Monocytes % Monocytes % (Manual) Eosinophils % Basophils % Nucleated RBC % Platelet Estimate Platelet Comment PT with INR 11.60 INR 0.98 PTT (Actin FS) 30.8 VBG pH 7.41 POC VBG pCO2 53.3 H POC VBG pO2 39.2 Mixed VBG HCO3 33.0 H Sodium 136 Potassium 4.4 Chloride 93 L Carbon Dioxide 33 H Anion Gap 9 BUN 44 H Creatinine 1.7 H Creat Clearance w eGFR 29.30 POC Glucometer Random Glucose 826 H* Lactic Acid Calcium 9.0 Total Bilirubin 0.4 AST 28 ALT 55 Alkaline Phosphatase 142 H Creatine Kinase Troponin I B-Natriuretic Peptide 891.3 H Total Protein 5.7 L Albumin 2.1 L Urine Color Urine Appearance Urine pH Ur Specific [place] Urine Protein Urine Glucose (UA) Urine Ketones Urine Blood Urine Nitrite Urine Bilirubin Urine Urobilinogen Ur Leukocyte Esterase Urine WBC (Auto) Urine RBC (Auto) Ur Epithelial Cells Acetone, Qual Influenza A (Rapid) Influenza B (Rapid) 10/31/18 10/31/18 10/31/18 18:39 18:39 21:00 WBC RBC Hgb Hct MCV MCH MCHC RDW Plt Count MPV Absolute Neuts (auto) Total Counted Neutrophils % Neutrophils % (Manual) Band Neutrophils % Lymphocytes % Lymphocytes % (Manual) Monocytes % Monocytes % (Manual) Eosinophils % Basophils % Nucleated RBC % Platelet Estimate Platelet Comment PT with INR INR PTT (Actin FS) VBG pH POC VBG pCO2 POC VBG pO2 Mixed VBG HCO3 Sodium Potassium Chloride Carbon Dioxide Anion Gap BUN Creatinine Creat Clearance w eGFR POC Glucometer Random Glucose Lactic Acid 3.6 H* 2.4 H* Calcium Total Bilirubin AST ALT Alkaline Phosphatase Creatine Kinase Troponin I 0.25 H B-Natriuretic Peptide Total Protein Albumin Urine Color Urine Appearance Urine pH Ur Specific [place] Urine Protein Urine Glucose (UA) Urine Ketones Urine Blood Urine Nitrite Urine Bilirubin Urine Urobilinogen Ur Leukocyte Esterase Urine WBC (Auto) Urine RBC (Auto) Ur Epithelial Cells Acetone, Qual Influenza A (Rapid) Influenza B (Rapid) 10/31/18 10/31/18 10/31/18 21:00 21:00 21:54 WBC RBC Hgb Hct MCV MCH MCHC RDW Plt Count MPV Absolute Neuts (auto) Total Counted Neutrophils % Neutrophils % (Manual) Band Neutrophils % Lymphocytes % Lymphocytes % (Manual) Monocytes % Monocytes % (Manual) Eosinophils % Basophils % Nucleated RBC % Platelet Estimate Platelet Comment PT with INR INR PTT (Actin FS) VBG pH POC VBG pCO2 POC VBG pO2 Mixed VBG HCO3 Sodium Potassium Chloride Carbon Dioxide Anion Gap BUN Creatinine Creat Clearance w eGFR POC Glucometer Random Glucose Lactic Acid Calcium Total Bilirubin AST ALT Alkaline Phosphatase Creatine Kinase 66 Troponin I 0.28 H B-Natriuretic Peptide Total Protein Albumin Urine Color Ltyellow Urine Appearance Slcloudy Urine pH 5.0 Ur Specific [place] 1.021 Urine Protein 2+ H Urine Glucose (UA) 3+ H D Urine Ketones Negative Urine Blood Negative Urine Nitrite Negative Urine Bilirubin Negative Urine Urobilinogen Negative Ur Leukocyte Esterase Negative Urine WBC (Auto) 1 Urine RBC (Auto) 2 Ur Epithelial Cells Few Acetone, Qual Positive,trace Influenza A (Rapid) Influenza B (Rapid) 10/31/18 22:09 WBC RBC Hgb Hct MCV MCH MCHC RDW Plt Count MPV Absolute Neuts (auto) Total Counted Neutrophils % Neutrophils % (Manual) Band Neutrophils % Lymphocytes % Lymphocytes % (Manual) Monocytes % Monocytes % (Manual) Eosinophils % Basophils % Nucleated RBC % Platelet Estimate Platelet Comment PT with INR INR PTT (Actin FS) VBG pH POC VBG pCO2 POC VBG pO2 Mixed VBG HCO3 Sodium Potassium Chloride Carbon Dioxide Anion Gap BUN Creatinine Creat Clearance w eGFR POC Glucometer > 600 Random Glucose Lactic Acid Calcium Total Bilirubin AST ALT Alkaline Phosphatase Creatine Kinase Troponin I B-Natriuretic Peptide Total Protein Albumin Urine Color Urine Appearance Urine pH Ur Specific [place] Urine Protein Urine Glucose (UA) Urine Ketones Urine Blood Urine Nitrite Urine Bilirubin Urine Urobilinogen Ur Leukocyte Esterase Urine WBC (Auto) Urine RBC (Auto) Ur Epithelial Cells Acetone, Qual Influenza A (Rapid) Influenza B (Rapid) Active Medications Generic Name Dose Route Start Last Admin Trade Name Laura PRN Reason Stop Dose Admin Insulin Human Regular 100 100 mls @ 5.17 mls/hr 10/31/18 22:30 11/01/18 00:19 units/ Sodium Chloride IVPB 0.1 units/kg/hr TITR ANITA 5.17 mls/hr Administration Protocol 0.1 UNITS/KG/HR Potassium Chloride/Sodium Chloride 20 meq in 1,000 mls @ 75 mls/hr 10/31/18 22 :30 11/01/18 00:19 1/2ns+20meq Kcl IV 75 mls/hr ASDIR ANITA Administration ASSESSMENT/PLAN: Patient is a 73 year old female with history of hypertension, hyperlipidemia, diabetes mellitus (non insulin dependent), Afib on Eliquis, CKD, admitted to ICU for hyperglycemic, hyperosmolar syndrome. Neurological -Patient is awake, alert, oriented in no acute distress -Monitor for signs of mental status change. Pulmonary -Patient is saturating 90% on 2L nasal canula -Maintain oxygen saturation greater than 90% Cardiovascular Afib -Continue Eliquis Hypertension -Holding home antihypertensives. -Amlodipine may be contributing to lower extremity edema. Troponinemia -Troponins 0.25 -> 0.28 likely secondary to demand ischemia. Will trend. -Cardiology consult Dr. Gutierres [facility] -serum osmolalits 333, glucose 826, pH 7.41, bicarbonate 33, anion gap 9. -Insulin 6units IV bolus. -Insulin drip at 0.1 units/ Kg. Once blood glucose less than 300 will decrease rate to 0.05 units/ Kg. -0.45% NaCl +20meq KCL at 75mL/ hour. Once blood glucose less than 300 will switch to 5% dextrose with 0.45% NaCl -Lactic acid 3.6 -> 2.4. Will follow. Renal History of CKD. -Nephrology consult. -Follow urine culture -Monitor Potassium closely while patient is receiving insulin Musculoskeletal -Right lower extremity appears slightly larger compared to left. -Duplex bilateral lower extremities to rule out DVT FEN -0.45% NaCl +20meq KCL at 75mL/ hour -Follow BMP -NPO while blood glucose greater than 200 Prophylaxis -Patient is on Eliquis for Afib Disposition -We will continue to follow the patient. Thank you for this consultative opportunity. Visit type - Emergency Visit Emergency Visit: Yes ED Registration Date: 10/31/18 Care time: The patient presented to the Emergency Department on the above date and was hospitalized for further evaluation of their emergent condition. - New Patient This patient is new to me today: Yes Date on this admission: 11/01/18 - Critical Care Critical Care patient: Yes Total Critical Care Time (in minutes): 35 Critical Care Statement: The care of this patient involved high complexity decision making to prevent further life threatening deterioration of the patient 's condition and/or to evaluate & treat vital organ system(s) failure or risk of failure.
[2018-11-01] MEDS ORDERED: SODIUM CHLORIDE 0.45%/POT 20 MEQ/1,000 ML INFUS.BAG IV SCH (01:25)
[2018-11-01 03:36] LABS: BASO % 0.1 % (0-2.0); EOS % 0.1 % (0-4.5); HEMATOCRIT 42.2 % (32.4-45.2); HEMOGLOBIN 14.4 GM/dL (10.7-15.3); LYMPH % 11.2 % (8-40); MCH 33.5 pg (25.7-33.7); MCHC 34.2 g/dl (32.0-36.0); MEAN CELL VOLUME 97.9 fl (80-96); MEAN PLT VOLUME 10.4 fl (7.5-11.1); MONO % 1.1 % (3.8-10.2); NEUT % 87.5 % (42.8-82.8); PLATELET COUNT 183 K/MM3 (134-434); RBC 4.31 M/mm3 (3.60-5.2); RDW 13.8 % (11.6-15.6); WHITE BLOOD COUNT 9.1 K/mm3 (4.0-10.0)
[2018-11-01] MEDS ORDERED: INSULIN REGULAR 100 UNITS in SODIUM CHLORIDE 99 ML IVPB SCH ×2 (04:08→04:30)
[2018-11-01] MEDS ORDERED: D5-1/2NS+20 MEQ KCL - 20 MEQ/1,000 ML INFUS.BAG IV SCH (04:15)
[2018-11-01] MEDS ORDERED: INSULIN (LEVEMIR) 100 UNITS/ML UNITS SQ ONE (05:12)
[2018-11-01] MEDS: INSULIN SLIDING SCALE (NOVOLOG) 1 VIAL SQ SCH ×4 (07:01→21:48)
[2018-11-01 07:14] LABS: ANION GAP 9 MMOL/L (8-16); BLOOD UREA NITROGEN 36 mg/dL (7-18); CALCIUM 9.3 mg/dL (8.5-10.1); CHLORIDE 102 mmol/L (98-107); CO2 35 mmol/L (21-32); CREATININE 1.2 mg/dL (0.55-1.3); GLUCOSE,RANDOM 73 mg/dL (74-106); PHOSPHOROUS 1.8 mg/dL (2.5-4.9); POTASSIUM 3.7 mmol/L (3.5-5.1); SODIUM 146 mmol/L (136-145)
[2018-11-01 07:43] LABS: ANION GAP 8 MMOL/L (8-16); BLOOD UREA NITROGEN 37 mg/dL (7-18); CALCIUM 9.5 mg/dL (8.5-10.1); CHLORIDE 102 mmol/L (98-107); CO2 36 mmol/L (21-32); CREATININE 1.3 mg/dL (0.55-1.3); GLUCOSE,RANDOM 170 mg/dL (74-106); POTASSIUM 3.1 mmol/L (3.5-5.1); SODIUM 146 mmol/L (136-145)
--- NOTE | 2018-11-01 08:32 | PN ---
Physical Exam: SUBJECTIVE: Patient seen and examine Patient has no new complains, feeling better. No nausea or vomiting. No shortness of breath. States leg swelling improving. OBJECTIVE: Vital Signs Temperature 98.2 F 11/01/18 06:00 Pulse Rate 61 11/01/18 08:00 Respiratory Rate 28 H 11/01/18 08:00 Blood Pressure 106/56 L 11/01/18 08:00 O2 Sat by Pulse Oximetry (%) 99 11/01/18 03:19 initial Vital Signs Temp Pulse Resp BP Pulse Ox 100.3 F H 86 22 H 125/55 L 92 L 10/31/18 17:58 10/31/18 17:58 10/31/18 17:58 10/31/18 17:58 10/31/18 17:58 GENERAL: The patient is awake, alert, and fully oriented, in no acute distress. HEAD: Normal with no signs of trauma. EYES: PERRL, extraocular movements intact, sclera anicteric, conjunctiva clear. ENT: Ears normal, no exudates, moist mucous membranes. NECK: Trachea midline, full range of motion, supple. LUNGS: decrease Breath sounds BL, no wheezes, no crackles, no accessory muscle use. HEART: Regular rate and rhythm, S1, S2 , EVY 3/6 , no rub or gallop. ABDOMEN: Soft, nontender, nondistended, normoactive bowel sounds, no guarding, no rebound, no hepatosplenomegaly, no masses. EXTREMITIES: 2+ pulses, warm, 2 plus edema b/l. NEUROLOGICAL: Cranial nerves II through XII grossly intact. Normal speech, gait not observed. PSYCH: Normal mood, normal affect. SKIN: Warm, dry, normal turgor, no rashes or lesions noted Active Medications Generic Name Dose Route Start Last Admin Trade Name Freq PRN Reason Stop Dose Admin Apixaban 2.5 mg 11/01/18 10:00 Eliquis - PO BID ANITA Chlorhexidine Gluconate 1 applic 11/01/18 22:00 Hibiclens For Decolonization - TP HS ANITA Potassium Chloride/Dextrose/Sod Cl 20 meq in 1,000 mls @ 42 mls/hr 11/01/18 04 :15 11/01/18 04:24 D5-1/2ns+20 Meq Kcl - IV 42 mls/hr ASDIR ANITA Administration Insulin Aspart 1 vial 11/01/18 07:00 11/01/18 07:01 Novolog Vial Sliding Scale - SQ 2 unit ACHS ANITA Administration Protocol Mupirocin 1 applic 11/01/18 10:00 Bactroban Ointment (For Decolonization) - NS 11/06/18 09:59 BID [facility] Home Medications Medication Instructions Recorded Brimonidine Tartrate [Alphagan 1 drop OU BID 06/02/18 0.15% -] Lactobacillus Acidophilus [Bacid -] 1 tab PO DAILY #30 tab 06/17/18 Ferrous Sulfate [Feosol] 325 mg PO DAILY 07/15/18 Albuterol Sulfate [Proair Hfa] 8.5 gm IH DAILY 07/21/18 Apixaban [Eliquis] 5 mg PO DAILY 07/21/18 Amlodipine Besylate [Norvasc -] 10 mg PO DAILY 10/31/18 Furosemide [Lasix -] 40 mg PO DAILY 10/31/18 ASSESSMENT/PLAN: Patient is a 73yo female with PMHx of pulmonary HTN, A-fib (on eliquis), CHF, DM presents to the ER for progressively worsening LE edema over the last 2-3 weeks. Found to have elevated glucose and in hyperosmolar hyperglycemic state. # Hyperosmolar hyperglycemic state with sliding scale with coverage. #Worsening LE edema: Hold of Amlodipine, LE U/S is pending #Elevated trops: No signs of ACS, most likely due to demand ischemia. cardiology consult dr julien. # severe pulm HTN with chronic right-sided CHF, severe TR: No sign of CHF clinically #CKD :stable nephro consult appreciated #P-Afib with rate controlled on Eliqiuis with dose adjusted according to kidney function. #HTN on Lasix will hold amlodipine in setting of worsening LE edema # Lactic acidosis monitor Lactic acid. DVT ppx: on eliquis Visit type - Emergency Visit Emergency Visit: Yes ED Registration Date: 10/31/18 Care time: The patient presented to the Emergency Department on the above date and was hospitalized for further evaluation of their emergent condition. - New Patient This patient is new to me today: Yes Date on this admission: 11/01/18 - Critical Care Critical Care patient: No - Discharge Referral Referred to [facility] Med P.C.: No
[2018-11-01] MEDS ORDERED: PT OWN MED DRAWER 7, Y5N ONE ×2 (09:35→20:36)
[2018-11-01] MEDS ORDERED: MUPIROCIN 2% TOPICAL OINTMENT FOR DECOLONIZATION NS SCH ×2 (10:00→22:00)
[2018-11-01] MEDS ORDERED: APIXABAN 2.5 MG TABLET PO SCH (10:00)
[2018-11-01] MEDS ORDERED: APIXABAN 5 MG TABLET PO SCH ×3 (10:00→22:00)
--- NOTE | 2018-11-01 10:03 | CON.CARD ---
Consult Consult Specialty:: cardio - History of Present Illness Chief Complaint: leg swelling History of Present Illness: 73 F here with severe LE edema and sob. many weeks ago she was admitted with mild hemoptysis, ANNA, radiographic pulm abnormalities, treated for PNA. 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 was anemic. readmitted to [place] shortly afterward with worse pulm sx's and worse anemia. after discharge from there she was very edematous, on lasix 40--incr'd to 80 qd. developed worsening renal function, had renal biopsy which showed no findings of lupus nephropathy or other immune complex-mediated pathology. nonspecific findings with ? of pre-renal factors leading to ANNA at that time. since then her creatinine has normalized and been consistently 1.[address] Benjamin ( renal). amlodipine held few mo ago for edema--resumed several weeks ago. bp high, low dose ARB resumed by renal (losartan 25...was on benicar 40 previously). saw me 2 wks ago with 3-4+ pretib edema, no JVD, no sob but difficulty walking due to weight of her legs. i d/w'd dr Benjamin who rec'd start lasix 40 bid and pt to see him within a week's time. saw pmd (dr hassan) yest c/o severe edema of legs with difficulaty walking-- sent to ER PT DENIES ANY SOB OR ORTHOPNEA. no chest pain, palpitations leg swelling improved today, in bed PMH: pulm HTN with RV dilation/dysfunction and severe TR--etiology unknown, declined RHC labile HTN when comes off meds PAF, sinus node dysfunction asthma - Past Medical History Cardio/Vascular: Yes: AFIB, HTN, Hyperlipdemia Pulmonary: Yes: Asthma Renal/: Yes: Other (renal cyst and adrenal lesion) Endocrine: Yes: Diabetes Mellitus - Alcohol/Substance Use Hx Alcohol Use: No History of Substance Use: reports: None - Smoking History Smoking history: Never smoked Have you smoked in the past 12 months: No Home Medications - Allergies Allergies/Adverse Reactions: Allergies Allergy/AdvReac Type Severity Reaction Status Date / Time melon Allergy Verified 10/31/18 18:06 strawberry Allergy Verified 10/31/18 18:06 lactose AdvReac Verified 10/31/18 18:06 - Home Medications Home Medications: Ambulatory Orders Brimonidine Tartrate [Alphagan 0.15% -] 1 drop OU BID 06/02/18 Lactobacillus Acidophilus [Bacid -] 1 tab PO DAILY #30 tab 06/17/18 Ferrous Sulfate [Feosol] 325 mg PO DAILY 07/15/18 Albuterol Sulfate [Proair Hfa] 8.5 gm IH DAILY 07/21/18 Apixaban [Eliquis] 5 mg PO DAILY 07/21/18 Amlodipine Besylate [Norvasc -] 10 mg PO DAILY 10/31/18 Furosemide [Lasix -] 40 mg PO DAILY 10/31/18 Family Disease History - Family Disease History Family History: Denies (no known pulm HTN history) Review of Systems - Review of Systems Constitutional: denies: Chills, Fever Eyes: denies: Eye Pain HENT: denies: Nasal Congestion Neck: denies: Stiffness Cardiovascular: denies: Palpitations Respiratory: denies: Orthopnea, PND Gastrointestinal: denies: Diarrhea, Rectal Bleeding Genitourinary: denies: Burning, Hematuria Musculoskeletal: denies: Muscle Pain Integumentary: denies: Rash Neurological: denies: Numbness, Seizure, Syncope Endocrine: denies: Excessive Sweating Hematology/Lymphatic: denies: Excessive Bleeding Vital Signs: Vital Signs Temperature 98.2 F 11/01/18 06:00 Pulse Rate 61 11/01/18 08:00 Respiratory Rate 28 H 11/01/18 08:00 Blood Pressure 106/56 L 11/01/18 08:00 O2 Sat by Pulse Oximetry (%) 99 11/01/18 09:00 Constitutional: Yes: Well Nourished, No Distress Eyes: No: Sclera Icterus HENT: No: Nasal Congestion Neck: No: Decreased ROM Respiratory: Yes: CTA Bilaterally. No: Accessory Muscle Use, Rales, Wheezes Gastrointestinal: Yes: Normal Bowel Sounds. No: Distention, Hepatomegaly, Palpable Mass, Tenderness Cardiovascular: Yes: Regular Rate and Rhythm JVD: No Carotid Bruit: No PMI: Non-Displaced Heart Sounds: Yes: S1, S2. No: Gallop Murmur: Yes: Systolic Murmur (2/6 early EVY along LSB). No: Diastolic Murmur Musculoskeletal: Yes: Other (No kyphosis) Extremities: No: Cool, Cyanosis Edema: Yes (2+ pretib) Peripheral Pulses: 2+ Left Carotid, 2+ Right Carotid, 2+ Left Doralis Pedis, 2+ Right Dorsalis Pedis Integumentary: No: Jaundice Neurological: Yes: Alert, Oriented (x3) Psychiatric: No: Agitated - Other Data Labs, Other Data: CBC, BMP 11/01/18 03:30 11/01/18 05:25 INR, PTT INR 0.98 (0.83-1.09) 10/31/18 18:39 Troponin, BNP 10/31/18 10/31/18 10/31/18 18:39 18:39 21:00 Troponin I 0.25 H 0.28 H B-Natriuretic Peptide 891.3 H 11/01/18 11/01/18 11/01/18 01:06 05:25 08:22 Troponin I 0.28 H 0.25 H 0.26 H B-Natriuretic Peptide Troponin, BNP 10/31/18 10/31/18 10/31/18 18:39 18:39 21:00 Troponin I 0.25 H 0.28 H B-Natriuretic Peptide 891.3 H 11/01/18 11/01/18 11/01/18 01:06 05:25 08:22 Troponin I 0.28 H 0.25 H 0.26 H B-Natriuretic Peptide Laboratory Tests 10/31/18 10/31/18 10/31/18 18:39 18:39 21:00 WBC Hgb Plt Count Sodium Potassium Carbon Dioxide BUN Creatinine Creat Clearance w eGFR Lactic Acid AST 28 ALT 55 Troponin I 0.25 H 0.28 H B-Natriuretic Peptide 891.3 H Albumin 2.1 L 11/01/18 11/01/18 11/01/18 01:06 03:30 04:03 WBC 9.1 Hgb 14.4 Plt Count 183 Sodium Potassium Carbon Dioxide BUN Creatinine Creat Clearance w eGFR Lactic Acid 5.5 H* AST ALT Troponin I 0.28 H B-Natriuretic Peptide Albumin 11/01/18 11/01/18 11/01/18 05:25 05:25 08:22 WBC Hgb Plt Count Sodium 146 H Potassium 3.7 Carbon Dioxide 35 H BUN 36 H Creatinine 1.2 Creat Clearance w eGFR 43.80 Lactic Acid AST ALT Troponin I 0.25 H 0.26 H B-Natriuretic Peptide Albumin Assessment/Plan ECG: NSR with APCs, normal intervals/axis. inc RBBB. nonsp TWAs (no change vs ) CXR: enlarged heart (unchanged vs 05/2018). clear lungs/pleura LE edema: -suspect etiology is venous insufficiency and CCB effect > right sided CHF -JV pressure appears normal, and she has had no sob or signif hypoxia -edema improving here with leg elevation -continue holding amlodipine -start SHAHID stockings -defer lasix for now--if osmolarity status/lytes/DM stable tomorrow, consider start PO vs IV lasix depending on edema appearance severe pulm HTN with chronic right-sided CHF, severe TR: -etiology unknown--no signs CTEPH on V/Q, no [id number] shunt on CTA (cannot tolerate MRI-claustrophobia), no signs L sided diast CHF clinically and on stress echo. pt refused definitive assessment with RHC -BNP 800 (2K prior) -had been well-compensated and clinically euvolemic, NYHA III (1 flight of stairs) for long time -first time severe LE edema late 2017--required high dose lasix-->ANNA, ? pre- renal (biopsy nonspecific findings) -edema resolved completely, ? sec to amlodipine held -severe again now, back on amlodipine for couple of months--will hold -sat.s ok here, renal fxn stable, no signs hepatic congestion. do not suspect decompensated R heart failure, as disc'd above -trop 0.2 x 5--no signs ACS here low-grade temp (100.3), lactic acidosis: -lactate rising here -? sepsis--workup per critical care -BPs low normal to normal range, peripherally she is warm--do not suspect cardiogenic shock/low output state from RV dysfunction DM with hyperosmolar/hyperglycemic state, no mental status changes: -given IVF overnight--per d/w critical care this will be stopped today -A1c 14 -glycemia tx per crit care paroxysmal AFib: -rare episodes on event monitor and stress test -no AVN blockers given sinus node dysfunction on prior event monitor -continue home Eliquis (5 bid) HTN: -historically labile bp goes very hi when med lapses -was controlled on amlodipine, ARB long time -ARB held for ANNA--much lower potency regimen (losartan 25) resumed -BP 150s in office last week--currently controlled here -no amlodipine (edema) -no AVN blockers, including clonidine (asymptomatic SN dysfunction on event monitor--would need PPM to enable safe use this class of meds) -no hydral (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 exacerbated by diuresis at that time -baseline creat has been running 1.0 -renal fxn stable here--trend daily with diuretics asthma: -per hospitalist est'd time spent in examining pt, review of data, and formulating mgmt plan of potentially life-threatening med problems = 40 min
--- NOTE | 2018-11-01 11:24 | PN ---
Teaching Attending Note Name of Resident: Saroj Benavides ATTENDING PHYSICIAN STATEMENT I saw and evaluated the patient. I reviewed the resident's note and discussed the case with the resident. I agree with the resident's findings and plan as documented. SUBJECTIVE: Pt seen and examined in the ICU. States leg swelling improving. Denies shortness of breath, chest pain or abdominal pain. No fevers or chills. AM lactate trending up. OBJECTIVE: Vital Signs Period Temp Pulse Resp BP Sys/Red Pulse Ox Last 24 Hr 97.5 F-100.3 F 57-86 17-28 97-138/55-86 92-100 Intake & Output 10/29/18 10/30/18 10/31/18 11/01/18 23:59 23:59 23:59 23:59 Intake Total 143.2 Output Total 700 Balance -556.8 Weight 51.71 kg 48.251 kg Gen: NAD at rest Heart: RRR Lung: decreased breath sounds at the bases Abd: soft, nontender Ext: + edema CBC, BMP 11/01/18 03:30 11/01/18 05:25 Active Medications Apixaban (Eliquis -) 5 mg PO BID [facility] Chlorhexidine Gluconate (Hibiclens For Decolonization -) 1 applic TP HS ANITA Potassium Chloride/Dextrose/Sod Cl (D5-1/2ns+20 Meq Kcl -) 20 meq in 1,000 mls @ 42 mls/hr IV ASDIR [facility] Last Admin: 11/01/18 04:24 Dose: 42 mls/hr Insulin Aspart (Novolog Vial Sliding Scale -) 1 vial SQ ACHS [facility]; Protocol Last Admin: 11/01/18 07:01 Dose: 2 unit Mupirocin (Bactroban Ointment (For Decolonization) -) 1 applic NS BID [facility] Stop: 11/06/18 09:59 Last Admin: 11/01/18 09:39 Dose: 1 applic ASSESSMENT AND PLAN: Hyperosmolar Hyperglycemic Nonketotic State improving Severe Pulmonary HTN Paroxysmal Atrial Fibrillation Lactic Acidosis HTN CKD - glucose control - PO as tolerated - d/c IVF if tolerating PO - rate controlled - continue anticoagulation - f/u LE dopplers - trend lactate - can monitor on floor if lactate downtrending
[2018-11-01] MEDS ORDERED: NAPH,MB-DB/K PH,MBDB POWDER PACKET PO ONE (11:45)
--- NOTE | 2018-11-01 13:05 | EKG ---
Test Reason : Blood Pressure : / mmHG Vent. Rate : 084 BPM Atrial Rate : 084 BPM P-R Int : 000 ms QRS Dur : 088 ms QT Int : 354 ms P-R-T Axes : 000 033 062 degrees QTc Int : 418 ms SINUS RHYTHM WITH PREMATURE ATRIAL COMPLEXES INCOMPLETE RBBB Confirmed by ALVARO NERI MD ([id number]) on 11/01/2018 1:04:52 PM Referred By: Confirmed By:ALVARO NERI MD
--- NOTE | 2018-11-01 13:06 | CON.NEP ---
Consult Consult Specialty:: Nephrology Referred by:: Medicine Reason for Consultation:: History of chronic kidney disease and Focal glomerulosclerosis - History of Present Illness Chief Complaint: worsening lower extremity edema History of Present Illness: 73 year old female with type 2 diabetes mellitus, hypertension, stage 3 chronic kidney disease status post kidney biopsy consistent with focal segmental glomerulosclerosis who is now admitted with hyperosmolar, hyperglycemic state and acute on chronic azotemia. Patient saw her head of strategy recently who in consultation advised increase in the dose and frequency of her diuretics. Patient however missed her follow up appointment with me. She is presently on tapering dose of prednisone. - History Source History Provided By: Patient Limitations to Obtaining History: No Limitations - Past Medical History Cardio/Vascular: Yes: AFIB, HTN, Hyperlipdemia Pulmonary: Yes: Asthma Renal/: Yes: Other (renal cyst and adrenal lesion) Endocrine: Yes: Diabetes Mellitus - Alcohol/Substance Use Hx Alcohol Use: No History of Substance Use: reports: None - Smoking History Smoking history: Never smoked Have you smoked in the past 12 months: No - Social History History of Recent Travel: No Home Medications - Allergies Allergies/Adverse Reactions: Allergies Allergy/AdvReac Type Severity Reaction Status Date / Time melon Allergy Verified 10/31/18 18:06 strawberry Allergy Verified 10/31/18 18:06 lactose AdvReac Verified 10/31/18 18:06 - Home Medications Home Medications: Ambulatory Orders Brimonidine Tartrate [Alphagan 0.15% -] 1 drop OU BID 06/02/18 Lactobacillus Acidophilus [Bacid -] 1 tab PO DAILY #30 tab 06/17/18 Ferrous Sulfate [Feosol] 325 mg PO DAILY 07/15/18 Albuterol Sulfate [Proair Hfa] 8.5 gm IH DAILY 07/21/18 Apixaban [Eliquis] 5 mg PO DAILY 07/21/18 Amlodipine Besylate [Norvasc -] 10 mg PO DAILY 10/31/18 Furosemide [Lasix -] 40 mg PO DAILY 10/31/18 Review of Systems - Review of Systems Cardiovascular: reports: Edema (Bilateral lower extremity edema) Nephrology Consult - Height Height: 5 ft 5 in - Weight Weight: 106 lb 6 oz - BMI Body Mass Index (BMI): 17.6 - Lab Results CBC,BMP: CBC, BMP 11/01/18 03:30 11/01/18 05:25 Anion Gap: Anion Gap Anion Gap 9 MMOL/L (8-16) 11/01/18 05:25 - Physical Examination Vital Signs: Vital Signs Temperature 97.5 F L 11/01/18 10:00 Pulse Rate 60 11/01/18 12:00 Respiratory Rate 17 11/01/18 12:00 Blood Pressure 130/49 L 11/01/18 12:00 O2 Sat by Pulse Oximetry (%) 99 11/01/18 10:45 Constitutional: Yes: No Distress, Calm Eyes: Yes: WNL HENT: Yes: WNL Neck: Yes: Supple Cardiovascular: Yes: Pulse Irregular Respiratory: Yes: Other (coarse breath sound in both lung [place]) Gastrointestinal: Yes: WNL, Normal Bowel Sounds, Soft Renal/: Yes: [place] Present Edema: LLE: 1+, RLE: 1+ Integumentary: Yes: WNL Neurological: Yes: Alert, Oriented Problem List - Problems (1) Focal sclerosis of kidney Assessment/Plan: Patient has nephrotic syndrome and 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 Probably okay to restart ARB and monitor renal function. Will follow. Code(s): N05.1 - UNSP NEPH SYNDROME W FOCAL AND SEGMENTAL GLOMERULAR LESIONS (2) CHF (congestive heart failure) Code(s): I50.9 - HEART FAILURE, UNSPECIFIED Qualifiers: Heart failure type: systolic Heart failure chronicity: chronic Qualified Code(s): I50.22 - Chronic systolic (congestive) heart failure (3) A-fib Code(s): I48.91 - UNSPECIFIED ATRIAL FIBRILLATION Qualifiers: Atrial fibrillation type: paroxysmal Qualified Code(s): I48.0 - Paroxysmal atrial fibrillation (4) Acute kidney injury Assessment/Plan: Elderly female with acute on chronic kidney disease in the setting of hyperglycemia assisted diuresis. Renal function has improved compared to the admission numbers. Will follow. Code(s): N17.9 - ACUTE KIDNEY FAILURE, UNSPECIFIED
--- NOTE | 2018-11-01 13:49 | PN ---
Physical Exam: SUBJECTIVE: Patient doing well this morning. no overnight events. glucose levels within normal limits. able to tolerate PO. patient to be transferred to floor given stable troponin levels and downtrending lactic acid levels. OBJECTIVE: Vital Signs Period Temp Pulse Resp BP Sys/Red Pulse Ox Last 24 Hr 97.5 F-100.3 F 57-86 17-28 97-138/49-86 92-100 GENERAL: Patient is awake, alert, and fully oriented, in no acute distress. HEAD: Normocephalic, atraumatic. EYES: Pupils equal, round and reactive to light, extraocular movements intact without nystagmus, sclera anicteric, conjunctiva clear. EARS, NOSE, THROAT: Oropharynx clear without exudates. Dry mucous membranes. NECK: Supple without lymphadenopathy. LUNGS: Breath sounds equal, without wheezing or crackles auscultated bilaterally. No accessory muscle use. HEART: Regular rate and rhythm, normal S1 and S2 without murmur, rub or gallop. ABDOMEN: Soft, nontender, not distended, normoactive bowel sounds X4 quadrants. No guarding, no rebound tenderness. MUSCULOSKELETAL: Normal range of motion at all joints. UPPER EXTREMITIES: 2+ radial pulses, warm, well-perfused. LOWER EXTREMITIES: 2+ dorsalis pedis pulses, warm, well-perfused. bilateral LE 2 + pitting edema PSYCHIATRIC: Cooperative. Good eye contact. Appropriate mood and affect. NEUROLOGICAL: Cranial nerves II-XII intact. Normal speech. SKIN: Warm, dry Laboratory Results - last 24 hr 10/31/18 10/31/18 10/31/18 18:09 18:30 18:39 WBC 9.3 RBC 4.10 Hgb 13.6 Hct 41.2 D MCV 100.5 H MCH 33.0 MCHC 32.9 RDW 14.1 Plt Count 167 D MPV 10.5 D Absolute Neuts (auto) 8.5 H Total Counted 100 Neutrophils % 91.4 H D Neutrophils % (Manual) 90.0 H Band Neutrophils % 1.0 Lymphocytes % 6.0 L D Lymphocytes % (Manual) 6.0 L D Monocytes % 2.4 L Monocytes % (Manual) 3 L D Eosinophils % 0.0 D Basophils % 0.2 Nucleated RBC % 0 Platelet Estimate Decreased Platelet Comment No clumping noted PT with INR INR PTT (Actin FS) VBG pH POC VBG pCO2 POC VBG pO2 Mixed VBG HCO3 Sodium Potassium Chloride Carbon Dioxide Anion Gap BUN Creatinine Creat Clearance w eGFR POC Glucometer Random Glucose Hemoglobin A1c % Lactic Acid Calcium Phosphorus Magnesium Total Bilirubin AST ALT Alkaline Phosphatase Creatine Kinase Troponin I B-Natriuretic Peptide Total Protein Albumin Urine Color Cancelled Urine Appearance Cancelled Urine pH Cancelled Ur Specific [place] Cancelled Urine Protein Cancelled Urine Glucose (UA) Cancelled Urine Ketones Cancelled Urine Blood Cancelled Urine Nitrite Cancelled Urine Bilirubin Cancelled Urine Urobilinogen Cancelled Ur Leukocyte Esterase Cancelled Urine WBC (Auto) Urine RBC (Auto) Ur Epithelial Cells Acetone, Qual Influenza A (Rapid) Negative Influenza B (Rapid) Negative 10/31/18 10/31/18 10/31/18 18:39 18:39 18:39 WBC RBC Hgb Hct MCV MCH MCHC RDW Plt Count MPV Absolute Neuts (auto) Total Counted Neutrophils % Neutrophils % (Manual) Band Neutrophils % Lymphocytes % Lymphocytes % (Manual) Monocytes % Monocytes % (Manual) Eosinophils % Basophils % Nucleated RBC % Platelet Estimate Platelet Comment PT with INR 11.60 INR 0.98 PTT (Actin FS) 30.8 VBG pH 7.41 POC VBG pCO2 53.3 H POC VBG pO2 39.2 Mixed VBG HCO3 33.0 H Sodium 136 Potassium 4.4 Chloride 93 L Carbon Dioxide 33 H Anion Gap 9 BUN 44 H Creatinine 1.7 H Creat Clearance w eGFR 29.30 POC Glucometer Random Glucose 826 H* Hemoglobin A1c % Lactic Acid Calcium 9.0 Phosphorus Magnesium Total Bilirubin 0.4 AST 28 ALT 55 Alkaline Phosphatase 142 H Creatine Kinase Troponin I B-Natriuretic Peptide 891.3 H Total Protein 5.7 L Albumin 2.1 L Urine Color Urine Appearance Urine pH Ur Specific [place] Urine Protein Urine Glucose (UA) Urine Ketones Urine Blood Urine Nitrite Urine Bilirubin Urine Urobilinogen Ur Leukocyte Esterase Urine WBC (Auto) Urine RBC (Auto) Ur Epithelial Cells Acetone, Qual Influenza A (Rapid) Influenza B (Rapid) 10/31/18 10/31/18 10/31/18 18:39 18:39 21:00 WBC RBC Hgb Hct MCV MCH MCHC RDW Plt Count MPV Absolute Neuts (auto) Total Counted Neutrophils % Neutrophils % (Manual) Band Neutrophils % Lymphocytes % Lymphocytes % (Manual) Monocytes % Monocytes % (Manual) Eosinophils % Basophils % Nucleated RBC % Platelet Estimate Platelet Comment PT with INR INR PTT (Actin FS) VBG pH POC VBG pCO2 POC VBG pO2 Mixed VBG HCO3 Sodium Potassium Chloride Carbon Dioxide Anion Gap BUN Creatinine Creat Clearance w eGFR POC Glucometer Random Glucose Hemoglobin A1c % Lactic Acid 3.6 H* 2.4 H* Calcium Phosphorus Magnesium Total Bilirubin AST ALT Alkaline Phosphatase Creatine Kinase Troponin I 0.25 H B-Natriuretic Peptide Total Protein Albumin Urine Color Urine Appearance Urine pH Ur Specific [place] Urine Protein Urine Glucose (UA) Urine Ketones Urine Blood Urine Nitrite Urine Bilirubin Urine Urobilinogen Ur Leukocyte Esterase Urine WBC (Auto) Urine RBC (Auto) Ur Epithelial Cells Acetone, Qual Influenza A (Rapid) Influenza B (Rapid) 10/31/18 10/31/18 10/31/18 21:00 21:00 21:54 WBC RBC Hgb Hct MCV MCH MCHC RDW Plt Count MPV Absolute Neuts (auto) Total Counted Neutrophils % Neutrophils % (Manual) Band Neutrophils % Lymphocytes % Lymphocytes % (Manual) Monocytes % Monocytes % (Manual) Eosinophils % Basophils % Nucleated RBC % Platelet Estimate Platelet Comment PT with INR INR PTT (Actin FS) VBG pH POC VBG pCO2 POC VBG pO2 Mixed VBG HCO3 Sodium Potassium Chloride Carbon Dioxide Anion Gap BUN Creatinine Creat Clearance w eGFR POC Glucometer Random Glucose Hemoglobin A1c % Lactic Acid Calcium Phosphorus Magnesium Total Bilirubin AST ALT Alkaline Phosphatase Creatine Kinase 66 Troponin I 0.28 H B-Natriuretic Peptide Total Protein Albumin Urine Color Ltyellow Urine Appearance Slcloudy Urine pH 5.0 Ur Specific [place] 1.021 Urine Protein 2+ H Urine Glucose (UA) 3+ H D Urine Ketones Negative Urine Blood Negative Urine Nitrite Negative Urine Bilirubin Negative Urine Urobilinogen Negative Ur Leukocyte Esterase Negative Urine WBC (Auto) 1 Urine RBC (Auto) 2 Ur Epithelial Cells Few Acetone, Qual Positive,trace Influenza A (Rapid) Influenza B (Rapid) 10/31/18 11/01/18 11/01/18 22:09 01:06 01:06 WBC RBC Hgb Hct MCV MCH MCHC RDW Plt Count MPV Absolute Neuts (auto) Total Counted Neutrophils % Neutrophils % (Manual) Band Neutrophils % Lymphocytes % Lymphocytes % (Manual) Monocytes % Monocytes % (Manual) Eosinophils % Basophils % Nucleated RBC % Platelet Estimate Platelet Comment PT with INR INR PTT (Actin FS) VBG pH POC VBG pCO2 POC VBG pO2 Mixed VBG HCO3 Sodium Potassium Chloride Carbon Dioxide Anion Gap BUN Creatinine Creat Clearance w eGFR POC Glucometer > 600 Random Glucose Hemoglobin A1c % Lactic Acid 4.7 H* Calcium Phosphorus Magnesium Total Bilirubin AST ALT Alkaline Phosphatase Creatine Kinase 76 Troponin I 0.28 H B-Natriuretic Peptide Total Protein Albumin Urine Color Urine Appearance Urine pH Ur Specific [place] Urine Protein Urine Glucose (UA) Urine Ketones Urine Blood Urine Nitrite Urine Bilirubin Urine Urobilinogen Ur Leukocyte Esterase Urine WBC (Auto) Urine RBC (Auto) Ur Epithelial Cells Acetone, Qual Influenza A (Rapid) Influenza B (Rapid) 11/01/18 11/01/18 11/01/18 01:16 02:54 03:30 WBC RBC Hgb Hct MCV MCH MCHC RDW Plt Count MPV Absolute Neuts (auto) Total Counted Neutrophils % Neutrophils % (Manual) Band Neutrophils % Lymphocytes % Lymphocytes % (Manual) Monocytes % Monocytes % (Manual) Eosinophils % Basophils % Nucleated RBC % Platelet Estimate Platelet Comment PT with INR INR PTT (Actin FS) VBG pH POC VBG pCO2 POC VBG pO2 Mixed VBG HCO3 Sodium 146 H Potassium 3.1 L Chloride 102 Carbon Dioxide 36 H Anion Gap 8 BUN 37 H Creatinine 1.3 Creat Clearance w eGFR 39.93 POC Glucometer 438 273 Random Glucose 170 H Hemoglobin A1c % Lactic Acid Calcium 9.5 Phosphorus Magnesium Total Bilirubin AST ALT Alkaline Phosphatase Creatine Kinase Troponin I B-Natriuretic Peptide Total Protein Albumin Urine Color Urine Appearance Urine pH Ur Specific [place] Urine Protein Urine Glucose (UA) Urine Ketones Urine Blood Urine Nitrite Urine Bilirubin Urine Urobilinogen Ur Leukocyte Esterase Urine WBC (Auto) Urine RBC (Auto) Ur Epithelial Cells Acetone, Qual Influenza A (Rapid) Influenza B (Rapid) 11/01/18 11/01/18 11/01/18 03:30 04:03 04:05 WBC 9.1 RBC 4.31 Hgb 14.4 Hct 42.2 MCV 97.9 H MCH 33.5 MCHC 34.2 RDW 13.8 Plt Count 183 MPV 10.4 Absolute Neuts (auto) 7.9 Total Counted Neutrophils % 87.5 H Neutrophils % (Manual) Band Neutrophils % Lymphocytes % 11.2 D Lymphocytes % (Manual) Monocytes % 1.1 L Monocytes % (Manual) Eosinophils % 0.1 D Basophils % 0.1 Nucleated RBC % 0 Platelet Estimate Platelet Comment PT with INR INR PTT (Actin FS) VBG pH POC VBG pCO2 POC VBG pO2 Mixed VBG HCO3 Sodium Potassium Chloride Carbon Dioxide Anion Gap BUN Creatinine Creat Clearance w eGFR POC Glucometer 207 Random Glucose Hemoglobin A1c % Lactic Acid 5.5 H* Calcium Phosphorus Magnesium Total Bilirubin AST ALT Alkaline Phosphatase Creatine Kinase Troponin I B-Natriuretic Peptide Total Protein Albumin Urine Color Urine Appearance Urine pH Ur Specific [place] Urine Protein Urine Glucose (UA) Urine Ketones Urine Blood Urine Nitrite Urine Bilirubin Urine Urobilinogen Ur Leukocyte Esterase Urine WBC (Auto) Urine RBC (Auto) Ur Epithelial Cells Acetone, Qual Influenza A (Rapid) Influenza B (Rapid) 11/01/18 11/01/18 11/01/18 04:15 05:07 05:25 WBC RBC Hgb Hct MCV MCH MCHC RDW Plt Count MPV Absolute Neuts (auto) Total Counted Neutrophils % Neutrophils % (Manual) Band Neutrophils % Lymphocytes % Lymphocytes % (Manual) Monocytes % Monocytes % (Manual) Eosinophils % Basophils % Nucleated RBC % Platelet Estimate Platelet Comment PT with INR INR PTT (Actin FS) VBG pH POC VBG pCO2 POC VBG pO2 Mixed VBG HCO3 Sodium Cancelled 146 H Potassium Cancelled 3.7 Chloride Cancelled 102 Carbon Dioxide Cancelled 35 H Anion Gap Cancelled 9 BUN Cancelled 36 H Creatinine Cancelled 1.2 Creat Clearance w eGFR Cancelled 43.80 POC Glucometer 97 Random Glucose Cancelled 73 L Hemoglobin A1c % Lactic Acid Calcium Cancelled 9.3 Phosphorus 1.8 L Magnesium 3.0 H Total Bilirubin AST ALT Alkaline Phosphatase Creatine Kinase Troponin I B-Natriuretic Peptide Total Protein Albumin Urine Color Urine Appearance Urine pH Ur Specific [place] Urine Protein Urine Glucose (UA) Urine Ketones Urine Blood Urine Nitrite Urine Bilirubin Urine Urobilinogen Ur Leukocyte Esterase Urine WBC (Auto) Urine RBC (Auto) Ur Epithelial Cells Acetone, Qual Influenza A (Rapid) Influenza B (Rapid) 11/01/18 11/01/18 11/01/18 05:25 05:25 05:58 WBC RBC Hgb Hct MCV MCH MCHC RDW Plt Count MPV Absolute Neuts (auto) Total Counted Neutrophils % Neutrophils % (Manual) Band Neutrophils % Lymphocytes % Lymphocytes % (Manual) Monocytes % Monocytes % (Manual) Eosinophils % Basophils % Nucleated RBC % Platelet Estimate Platelet Comment PT with INR INR PTT (Actin FS) VBG pH POC VBG pCO2 POC VBG pO2 Mixed VBG HCO3 Sodium Potassium Chloride Carbon Dioxide Anion Gap BUN Creatinine Creat Clearance w eGFR POC Glucometer 96 Random Glucose Hemoglobin A1c % 14.6 H Lactic Acid Calcium Phosphorus Magnesium Total Bilirubin AST ALT Alkaline Phosphatase Creatine Kinase 103 Troponin I 0.25 H B-Natriuretic Peptide Total Protein Albumin Urine Color Urine Appearance Urine pH Ur Specific [place] Urine Protein Urine Glucose (UA) Urine Ketones Urine Blood Urine Nitrite Urine Bilirubin Urine Urobilinogen Ur Leukocyte Esterase Urine WBC (Auto) Urine RBC (Auto) Ur Epithelial Cells Acetone, Qual Influenza A (Rapid) Influenza B (Rapid) 11/01/18 11/01/18 11/01/18 06:56 08:05 08:22 WBC RBC Hgb Hct MCV MCH MCHC RDW Plt Count MPV Absolute Neuts (auto) Total Counted Neutrophils % Neutrophils % (Manual) Band Neutrophils % Lymphocytes % Lymphocytes % (Manual) Monocytes % Monocytes % (Manual) Eosinophils % Basophils % Nucleated RBC % Platelet Estimate Platelet Comment PT with INR INR PTT (Actin FS) VBG pH POC VBG pCO2 POC VBG pO2 Mixed VBG HCO3 Sodium Potassium Chloride Carbon Dioxide Anion Gap BUN Creatinine Creat Clearance w eGFR POC Glucometer 154 184 Random Glucose Hemoglobin A1c % Lactic Acid Calcium Phosphorus Magnesium Total Bilirubin AST ALT Alkaline Phosphatase Creatine Kinase Troponin I 0.26 H B-Natriuretic Peptide Total Protein Albumin Urine Color Urine Appearance Urine pH Ur Specific [place] Urine Protein Urine Glucose (UA) Urine Ketones Urine Blood Urine Nitrite Urine Bilirubin Urine Urobilinogen Ur Leukocyte Esterase Urine WBC (Auto) Urine RBC (Auto) Ur Epithelial Cells Acetone, Qual Influenza A (Rapid) Influenza B (Rapid) 11/01/18 11/01/18 11/01/18 09:24 10:07 11:55 WBC RBC Hgb Hct MCV MCH MCHC RDW Plt Count MPV Absolute Neuts (auto) Total Counted Neutrophils % Neutrophils % (Manual) Band Neutrophils % Lymphocytes % Lymphocytes % (Manual) Monocytes % Monocytes % (Manual) Eosinophils % Basophils % Nucleated RBC % Platelet Estimate Platelet Comment PT with INR INR PTT (Actin FS) VBG pH POC VBG pCO2 POC VBG pO2 Mixed VBG HCO3 Sodium Potassium Chloride Carbon Dioxide Anion Gap BUN Creatinine Creat Clearance w eGFR POC Glucometer 214 178 98 Random Glucose Hemoglobin A1c % Lactic Acid Calcium Phosphorus Magnesium Total Bilirubin AST ALT Alkaline Phosphatase Creatine Kinase Troponin I B-Natriuretic Peptide Total Protein Albumin Urine Color Urine Appearance Urine pH Ur Specific [place] Urine Protein Urine Glucose (UA) Urine Ketones Urine Blood Urine Nitrite Urine Bilirubin Urine Urobilinogen Ur Leukocyte Esterase Urine WBC (Auto) Urine RBC (Auto) Ur Epithelial Cells Acetone, Qual Influenza A (Rapid) Influenza B (Rapid) Active Medications Generic Name Dose Route Start Last Admin Trade Name Laura PRN Reason Stop Dose Admin Apixaban 5 mg 11/01/18 22:00 Eliquis - PO BID ANITA Chlorhexidine Gluconate 1 applic 11/01/18 22:00 Hibiclens For Decolonization - TP HS ANITA Potassium Chloride/Dextrose/Sod Cl 20 meq in 1,000 mls @ 42 mls/hr 11/01/18 04 :15 11/01/18 04:24 D5-1/2ns+20 Meq Kcl - IV 42 mls/hr ASDIR ANITA Administration Insulin Aspart 1 vial 11/01/18 07:00 11/01/18 11:59 Novolog Vial Sliding Scale - SQ Not Given ACHS [facility] Protocol Mupirocin 1 applic 11/01/18 10:00 11/01/18 09:39 Bactroban Ointment (For Decolonization) - NS 11/06/18 09:59 1 applic BID ANITA Administration ASSESSMENT/PLAN: Patient is a 73 year old female with history of hypertension, hyperlipidemia, diabetes mellitus (non insulin dependent), Afib on Eliquis, CKD, admitted to ICU for hyperglycemic, hyperosmolar syndrome. Neurological -Patient is awake, alert, oriented in no acute distress -Monitor for signs of mental status change. Pulmonary -Patient is saturating 90% on 2L nasal canula -Maintain oxygen saturation greater than 90% Cardiovascular Afib -Continue Eliquis Hypertension -Holding home antihypertensives. -Amlodipine may be contributing to lower extremity edema - currently being withheld Troponinemia -Troponins 0.25 -> 0.28 -> 0.26 likely secondary to demand ischemia. -Cardiology consult Dr. Gutierres - appreciate recommendations Endocrine HHS -serum osmolalits 333, glucose 826, pH 7.41, bicarbonate 33, anion gap 9 on presentation -s/p the following interventions: Insulin 6units IV bolus, Insulin drip at 0.1 units/ Kg , 0.45% NaCl +20meq KCL at 75mL/ hour. Once blood glucose less than 300 will switch to 5% dextrose with 0.45% NaCl -Lactic acid 4.7 -> 5.5 -> 4.3 Renal History of CKD. -Nephrology consult. -Monitor Potassium closely while patient is receiving insulin Musculoskeletal -Negative DVT study FEN -On diabetic diet -Follow BMP Prophylaxis -Patient is on Eliquis for Afib Disposition -Patient to be transferred to the floor. Troponin levels stable and she lactic acid has downtrending. While elevated, unsure of current source. Visit type - Emergency Visit Emergency Visit: Yes ED Registration Date: 10/31/18 Care time: The patient presented to the Emergency Department on the above date and was hospitalized for further evaluation of their emergent condition. - New Patient This patient is new to me today: Yes Date on this admission: 11/02/18 - Critical Care Critical Care patient: Yes Total Critical Care Time (in minutes): 36 Critical Care Statement: The care of this patient involved high complexity decision making to prevent further life threatening deterioration of the patient 's condition and/or to evaluate & treat vital organ system(s) failure or risk of failure. - Discharge Referral Referred to [facility] Med [facility].: No
[2018-11-01] MEDS: ACETAMINOPHEN 325 MG TABLET (FP) PO PRN (21:12)
[2018-11-01] MEDS ORDERED: DEXTROSE 50%-WATER 25 GM/50 ML DISP.SYRIN ONE (21:18)
[2018-11-01] MEDS ORDERED: DEXTROSE 50%-WATER - 25 GM/50 ML VIAL IVPUSH ONE (21:24)
[2018-11-01] MEDS: APIXABAN 5 MG TABLET PO SCH (21:48)
[2018-11-01] MEDS ORDERED: CHLORHEXIDINE GLUCONATE 4% CLEANSER FOR DECOLONIZATION TP SCH ×2 (22:00)
--- NOTE | 2018-11-02 04:25 | RAPID ---
Physical Examination Vital Signs: Vital Signs Temperature 98.0 F 11/02/18 02:00 Pulse Rate 79 11/02/18 02:00 Respiratory Rate 20 11/02/18 02:00 Blood Pressure 107/57 L 11/02/18 02:00 O2 Sat by Pulse Oximetry (%) 99 11/01/18 10:45 Findings/Remarks: Called to rapid response 3:48 am for patient hypoglycemic on FSG to low 20s and having lost peripheral access. Was tachycardic, otherwise stable and A&Ox3 upon arrival. Unable to restore IV access on the floor. At this point began to administer PO glucose and held further insulin. Suspect that patient's CKD has prevented appropriate metabolism of insulin leading to recurrent hypoglycemia. Patient was transferred back to ICU. Constitutional: Yes: No Distress Eyes: Yes: WNL HENT: Yes: WNL Neck: Yes: WNL Cardiovascular: Yes: Tachycardia Respiratory: Yes: CTA Bilaterally Gastrointestinal: Yes: WNL Labs: CBC, BMP 11/01/18 03:30 11/01/18 05:25
--- NOTE | 2018-11-02 04:54 | CONSULT ---
Consultation: REQUESTING PROVIDER: Dr. lA CONSULT REQUEST: We have been asked to medically evaluate this patient for blood glucose monitoring. HISTORY OF PRESENT ILLNESS: 73 year old female with history of hypertension, hyperlipidemia, diabetes mellitus (non insulin dependent), Afib on Eliquis, CKD, and pulmonary hypertension was initially brought to the hospital for b/l lower extremity swelling and admitted for treatment of hyperosmolar hypoketotic state. She was treated in the ICU with insulin drip. Notably she spiked troponins and lactic acid, which both peaked spontaneously and per cardiology were not associated with acute coronary syndrome. On the med-surg floor, patient was found to have a fever, but they were unable to find a vein from which to obtain blood cultures. She was later found to BGM of 21, an attempt was made to give D50 but peripheral access was not patent. Patient was encouraged for PO intake with orange juice and brought to ICU for further monitoring. I examined the patient after she was brought to the ICU. Patient is in no acute distress and denies any complaints. Denies chest pain, SOB, nausea, vomiting, diarrhea. REVIEW OF SYSTEMS: CONSTITUTIONAL: Absent: fever, chills, diaphoresis, generalized weakness, malaise, loss of appetite, weight change HEENT: Absent: rhinorrhea, nasal congestion, throat pain, throat swelling, difficulty swallowing, mouth swelling, ear pain, eye pain, visual changes CARDIOVASCULAR: Absent: chest pain, syncope, palpitations, irregular heart rate, lightheadedness , peripheral edema RESPIRATORY: Absent: cough, shortness of breath, dyspnea with exertion, orthopnea, wheezing, stridor, hemoptysis GASTROINTESTINAL: Absent: abdominal pain, abdominal distension, nausea, vomiting, diarrhea, constipation, melena, hematochezia GENITOURINARY: Absent: dysuria, frequency, urgency, hesitancy, hematuria, flank pain, genital pain MUSCULOSKELETAL: Absent: myalgia, arthralgia, joint swelling, back pain, neck pain SKIN: Absent: rash, itching, pallor HEMATOLOGIC/IMMUNOLOGIC: Absent: easy bleeding, easy bruising, lymphadenopathy, frequent infections ENDOCRINE: Absent: unexplained weight gain, unexplained weight loss, heat intolerance, cold intolerance NEUROLOGIC: Absent: headache, focal weakness or paresthesias, dizziness, unsteady gait, seizure, mental status changes, bladder or bowel incontinence PSYCHIATRIC: Absent: anxiety, depression, suicidal or homicidal ideation, hallucinations. PHYSICAL EXAMINATION Vital Signs - 24 hr 11/01/18 11/01/18 11/01/18 06:00 08:00 09:00 Temperature 98.2 F Pulse Rate 78 61 Respiratory 17 28 H Rate Blood Pressure 105/86 106/56 L O2 Sat by Pulse 99 Oximetry (%) 11/01/18 11/01/18 11/01/18 10:00 10:45 12:00 Temperature 97.5 F L Pulse Rate 65 60 Respiratory 17 17 Rate Blood Pressure 138/63 130/49 L O2 Sat by Pulse 99 Oximetry (%) 11/01/18 11/01/18 11/01/18 14:00 16:00 17:55 Temperature 97.6 F Pulse Rate 65 65 90 Respiratory 19 20 20 Rate Blood Pressure 113/58 L 134/76 145/65 O2 Sat by Pulse Oximetry (%) 11/01/18 11/01/18 11/02/18 18:51 22:00 02:00 Temperature 101.7 F H 100.3 F H 98.0 F Pulse Rate 63 79 Respiratory 20 20 Rate Blood Pressure 135/74 107/57 L O2 Sat by Pulse Oximetry (%) GENERAL: Patient is awake, alert, and fully oriented, in no acute distress. HEAD: Normocephalic, atraumatic. EYES: Pupils equal, round and reactive to light, extraocular movements intact without nystagmus, sclera anicteric, conjunctiva clear. EARS, NOSE, THROAT: Oropharynx clear without exudates. Dry mucous membranes. NECK: Supple without lymphadenopathy. LUNGS: Breath sounds equal, without wheezing or crackles auscultated bilaterally. No accessory muscle use. HEART: Regular rate and rhythm, normal S1 and S2 without murmur, rub or gallop. ABDOMEN: Soft, nontender, not distended, normoactive bowel sounds X4 quadrants. No guarding, no rebound tenderness. MUSCULOSKELETAL: Normal range of motion at all joints. UPPER EXTREMITIES: 2+ radial pulses, warm, well-perfused. LOWER EXTREMITIES: R calf slightly larger than L and 2+ pitting edema noted PSYCHIATRIC: Cooperative. Good eye contact. Appropriate mood and affect. NEUROLOGICAL: Cranial nerves II-XII intact. Normal speech. SKIN: Warm, dry Laboratory Results - last 24 hr 11/01/18 11/01/18 11/01/18 03:30 04:03 04:15 Sodium 146 H Cancelled Potassium 3.1 L Cancelled Chloride 102 Cancelled Carbon Dioxide 36 H Cancelled Anion Gap 8 Cancelled BUN 37 H Cancelled Creatinine 1.3 Cancelled Creat Clearance w eGFR 39.93 Cancelled POC Glucometer Random Glucose 170 H Cancelled Hemoglobin A1c % Lactic Acid 5.5 H* Calcium 9.5 Cancelled Phosphorus Magnesium Creatine Kinase Troponin I 11/01/18 11/01/18 11/01/18 05:07 05:25 05:25 Sodium 146 H Potassium 3.7 Chloride 102 Carbon Dioxide 35 H Anion Gap 9 BUN 36 H Creatinine 1.2 Creat Clearance w eGFR 43.80 POC Glucometer 97 Random Glucose 73 L Hemoglobin A1c % Lactic Acid Calcium 9.3 Phosphorus 1.8 L Magnesium 3.0 H Creatine Kinase 103 Troponin I 0.25 H 11/01/18 11/01/18 11/01/18 05:25 05:58 06:56 Sodium Potassium Chloride Carbon Dioxide Anion Gap BUN Creatinine Creat Clearance w eGFR POC Glucometer 96 154 Random Glucose Hemoglobin A1c % 14.6 H Lactic Acid Calcium Phosphorus Magnesium Creatine Kinase Troponin I 11/01/18 11/01/18 11/01/18 08:05 08:22 09:24 Sodium Potassium Chloride Carbon Dioxide Anion Gap BUN Creatinine Creat Clearance w eGFR POC Glucometer 184 214 Random Glucose Hemoglobin A1c % Lactic Acid Calcium Phosphorus Magnesium Creatine Kinase Troponin I 0.26 H 11/01/18 11/01/18 11/01/18 10:07 11:55 12:28 Sodium Potassium Chloride Carbon Dioxide Anion Gap BUN Creatinine Creat Clearance w eGFR POC Glucometer 178 98 Random Glucose Hemoglobin A1c % Lactic Acid 4.3 H* Calcium Phosphorus Magnesium Creatine Kinase Troponin I 11/01/18 11/01/18 11/01/18 15:32 21:14 22:21 Sodium Potassium Chloride Carbon Dioxide Anion Gap BUN Creatinine Creat Clearance w eGFR POC Glucometer 225 41 157 Random Glucose Hemoglobin A1c % Lactic Acid Calcium Phosphorus Magnesium Creatine Kinase Troponin I 11/02/18 11/02/18 11/02/18 02:55 03:44 04:34 Sodium Potassium Chloride Carbon Dioxide Anion Gap BUN Creatinine Creat Clearance w eGFR POC Glucometer 46 21 161 Random Glucose Hemoglobin A1c % Lactic Acid Calcium Phosphorus Magnesium Creatine Kinase Troponin I Active Medications Generic Name Dose Route Start Last Admin Trade Name Freq PRN Reason Stop Dose Admin Acetaminophen 650 mg 11/01/18 19:08 11/01/18 21:12 Tylenol - PO 650 mg Q6H PRN Administration FEVER Apixaban 5 mg 11/01/18 22:00 11/01/18 21:48 Eliquis - PO 5 mg BID ANITA Administration Insulin Aspart 1 vial 11/01/18 22:00 11/01/18 21:48 Novolog Vial Sliding Scale - SQ Not Given ACHS ANITA Protocol ASSESSMENT/PLAN: Patient is a 73 year old female with history of hypertension, hyperlipidemia, diabetes mellitus (non insulin dependent), Afib on Eliquis, CKD, admitted to hospital for hyperosmolar, hypoketotic state was brought to ICU for episode of hypoglycemia and further, more frequent monitoring Endocrine Hypoglycemia: reported to me that BGM was 21, on repeat after oral intake was encourage the BGM michelle to 161 -Encourage oral intake (orange juice) -once a line is placed, can use D50 if hypoglycemic -BGM -hold insulins ID: patient spiked a fever earlier yesterday on the floor, no obvious source of infection, fever resolved -blood and urine cultures are pending Neurological -Patient is awake, alert, oriented in no acute distress -Monitor for signs of mental status change given her episode of hypoglycemia Pulmonary -Patient's pulmonary status is intact and she is saturating at 95% on nasal cannula -CXR from 10/31 was clear Cardiovascular Afib -rate controlled -Continue Eliquis Hypertension -Holding home antihypertensives (amlodipine carries the adverse effect of pitting edema) Troponinemia -was likely due to demand and resolved -Cardiology consult Dr. Gutierres Renal History of CKD. -Nephrology consult. Musculoskeletal -Right lower extremity appears slightly larger compared to left. -Duplex bilateral lower extremities to rule out DVT FEN -no fluids -replete lytes as necessary Prophylaxis -Patient is on Eliquis for Afib Disposition -We will continue to follow the patient. Thank you for this consultative opportunity. -anticipate transfer to floor in AM Visit type - Emergency Visit Emergency Visit: No - New Patient This patient is new to me today: No - Critical Care Critical Care patient: Yes Total Critical Care Time (in minutes): 25
[2018-11-02] MEDS: DEXTROSE 50%-WATER 25 GM/50 ML DISP.SYRIN IVPUSH ONE ×2 (07:04→07:20)
[2018-11-02] MEDS ORDERED: INSULIN (NOVOLOG) ASPART 100 UNITS/ML 10ML VIAL SQ ONE (07:26)
[2018-11-02] MEDS ORDERED: INSULIN REGULAR HUMAN 100 UNITS/ML *VIAL SQ ONE (07:26)
[2018-11-02 08:33] LABS: HEMATOCRIT 44.2 % (32.4-45.2); MCH 33.6 pg (25.7-33.7); MCHC 33.9 g/dl (32.0-36.0); MEAN CELL VOLUME 99.2 fl (80-96); MEAN PLT VOLUME 10.5 fl (7.5-11.1); PLATELET COUNT 133 K/MM3 (134-434); RBC 4.46 M/mm3 (3.60-5.2); RDW 13.7 % (11.6-15.6); WHITE BLOOD COUNT 11.5 K/mm3 (4.0-10.0)
[2018-11-02] MEDS ORDERED: METOPROLOL TARTRATE 5 MG/5 ML VIAL IVPUSH ONE (08:52)
[2018-11-02] MEDS ORDERED: METOPROLOL TARTRATE 5 MG/5 ML VIAL ONE (08:55)
--- NOTE | 2018-11-02 09:05 | PN ---
Progress Note, Physician History of Present Illness: seen and examined at bedside. no complaint from patient. overnight rapid response event noted. - Current Medication List Current Medications: Active Medications Acetaminophen (Tylenol -) 650 mg PO Q6H PRN PRN Reason: FEVER Last Admin: 11/01/18 21:12 Dose: 650 mg Apixaban (Eliquis -) 5 mg PO BID ANITA Last Admin: 11/01/18 21:48 Dose: 5 mg Insulin Aspart (Novolog Vial Sliding Scale -) 1 vial SQ ACHS [facility]; Protocol Last Admin: 11/01/18 21:48 Dose: Not Given - Objective Vital Signs: Vital Signs Temperature 98.2 F 11/02/18 04:50 Pulse Rate 116 H 11/02/18 06:22 Respiratory Rate 20 11/02/18 06:22 Blood Pressure 124/70 11/02/18 06:22 O2 Sat by Pulse Oximetry (%) 97 11/01/18 21:00 Constitutional: Yes: No Distress, Calm Cardiovascular: Yes: Regular Rate and Rhythm, S1, S2. No: Murmur Respiratory: Yes: CTA Bilaterally Gastrointestinal: Yes: Normal Bowel Sounds, Soft. No: Tenderness Edema: Yes Edema: LLE: 1+, RLE: 1+ Neurological: Yes: Alert, Oriented. No: Confusion Labs: CBC, BMP 11/02/18 07:45 INR, PTT INR 0.98 (0.83-1.09) 10/31/18 18:39 Impression/Plan Impression/Plan: 73 yo h/o HTN, HLD, NIDDM, afib on eliquis, CKD admitted for HHS then ICU overnight from floor due to a hypoglycemic episode. abd pain suspecting mesenteric ischemia - CTA - IVF and trend lactate HHS - resolved, was hypoglycemic, now hyperglycemic since transferred to ICU - received 8 unit of regular insulin this AM - cont BGM and sliding scale for now afib - rate and rythm controlled - cont. eliquis CKD - stable - monitor k+ HTN - holding norvasc due to LE edema - on metoprolol Visit type - Emergency Visit Emergency Visit: No - New Patient This patient is new to me today: Yes Date on this admission: 11/02/18 - Critical Care Critical Care patient: Yes Total Critical Care Time (in minutes): 35 Critical Care Statement: The care of this patient involved high complexity decision making to prevent further life threatening deterioration of the patient 's condition and/or to evaluate & treat vital organ system(s) failure or risk of failure.
[2018-11-02] MEDS ORDERED: PT OWN MED DRAWER 7, Y5N ONE (09:11)
--- NOTE | 2018-11-02 09:38 | PN ---
Progress Note, Physician Chief Complaint: LE edema History of Present Illness: yesterday IVF stopped, transferred to floor. lost peripheral IV access, became hypoglycemic, rapid response called. high lactate persists. blood and urine Cx's negative signif abd pain after eating breakfast today--pain has resolved now felt breathless at that time as well--also now resolved no cp, palpit - Current Medication List Current Medications: Active Medications Acetaminophen (Tylenol -) 650 mg PO Q6H PRN PRN Reason: FEVER Last Admin: 11/01/18 21:12 Dose: 650 mg Apixaban (Eliquis -) 5 mg PO BID ANITA Last Admin: 11/01/18 21:48 Dose: 5 mg Insulin Aspart (Novolog Vial Sliding Scale -) 1 vial SQ ACHS [facility]; Protocol Last Admin: 11/01/18 21:48 Dose: Not Given Metoprolol Succinate (Toprol Xl -) 25 mg PO DAILY [facility] - Objective Vital Signs: Vital Signs Temperature 98.2 F 11/02/18 04:50 Pulse Rate 116 H 11/02/18 06:22 Respiratory Rate 20 11/02/18 06:22 Blood Pressure 124/70 11/02/18 06:22 O2 Sat by Pulse Oximetry (%) 97 11/01/18 21:00 Constitutional: Yes: Well Nourished, No Distress, Calm Cardiovascular: Yes: Regular Rate and Rhythm, Murmur (EVY LUSB), S1, S2. No: JVD, Gallop Respiratory: Yes: Regular, CTA Bilaterally. No: Accessory Muscle Use, Rales, Wheezes Extremities: No: Cold Edema: Yes (1+ pretib) Neurological: Yes: Alert, Oriented Psychiatric: No: Agitated Labs: CBC, BMP 11/02/18 07:45 INR, PTT INR 0.98 (0.83-1.09) 10/31/18 18:39 Assessment/Plan ECG: NSR with APCs, normal intervals/axis. inc RBBB. nonsp TWAs (no change vs ) CXR: enlarged heart (unchanged vs 05/2018). clear lungs/pleura tele: NSR with sinus tachy/freq APCs and runs of PAT. VT x 3b LE edema: -suspect etiology is venous insufficiency and CCB effect > right sided CHF -JV pressure appears normal, and she has had no sob or signif hypoxia -edema improving here with leg elevation -continue holding amlodipine -start SHAHID stockings -defer lasix for now--if osmolarity status/lytes/DM stable tomorrow, consider start PO vs IV lasix depending on edema appearance severe pulm HTN with chronic right-sided CHF, severe TR: -etiology unknown--no signs CTEPH on V/Q, no [id number] shunt on CTA (cannot tolerate MRI-claustrophobia), no signs L sided diast CHF clinically and on stress echo. pt refused definitive assessment with RHC -BNP 800 (2K prior) -had been well-compensated and clinically euvolemic, NYHA III (1 flight of stairs) for long time -suspect edema is venous insy/ccb effect--much improved here off amlodipine with leg elevation. holding lasix -sat.s ok here, renal fxn stable, no signs hepatic congestion. do not suspect decompensated R heart failure, as disc'd above low-grade temp (100.3), lactic acidosis, abdominal pain: -lactate rising here -sepsis workup thus far negative -BPs low normal to normal range, peripherally she is warm--do not suspect cardiogenic shock/low output state from RV dysfunction -CT abd today to r/o mesenteric ischemia -not in DKA per d/w critical care paroxysmal AFib, PAT: -rare episodes on event monitor and stress test -no standing AVN blockers given sinus node dysfunction on prior event monitor -given metoprolol overnight for tachy (sinus tach with runs of PAT)--no tessie -tachy likely was reactive to acute hypoglycemia--no standing AVN blockers. cont tele -continue home Eliquis (5 bid) VTach: -3 beat run on tele -normal LFSF--low risk for malignant arrhythmia -today's lytes pending: replete K to 4, Mag to 2 DM with hyperosmolar/hyperglycemic state, no mental status changes: -given IVF overnight--per d/w critical care this will be stopped today -A1c 14 -glycemia tx per crit care HTN: -historically labile bp goes very hi when med lapses -was controlled on amlodipine, ARB long time -ARB held for ANNA--much lower potency regimen (losartan 25) resumed -BP 150s in office last week--currently controlled here -no amlodipine (edema) -no AVN blockers, including clonidine (asymptomatic SN dysfunction on event monitor--would need PPM to enable safe use this class of meds) -no hydral (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 exacerbated by diuresis at that time -baseline creat has been running 1.0 -renal fxn stable here--trend daily with diuretics asthma: -per hospitalist est'd time spent in examining pt, review of data, and formulating mgmt plan of potentially life-threatening med problems = 35 min
[2018-11-02] MEDS ORDERED: SODIUM CHLORIDE 500 ML IV STA (09:41)
[2018-11-02] MEDS: APIXABAN 5 MG TABLET PO SCH ×2 (09:48→21:12)
[2018-11-02] MEDS: SODIUM CHLORIDE 1,000 ML IV SCH (09:58)
[2018-11-02] MEDS: metoPROLOL SUCCINATE 25 MG TAB.SR.24H (FP) PO SCH ×2 (10:00→10:07)
[2018-11-02] MEDS ORDERED: metoPROLOL SUCCINATE 25 MG TAB.SR.24H (FP) PO SCH (10:00)
--- NOTE | 2018-11-02 10:32 | PN ---
Teaching Attending Note Name of Resident: Bridgette Ragsdale ATTENDING PHYSICIAN STATEMENT I saw and evaluated the patient. I reviewed the resident's note and discussed the case with the resident. I agree with the resident's findings and plan as documented. SUBJECTIVE: Pt seen and examined in the ICU. Transferred back down for hypoglycemic episode and rapid atrial fibrillation. Now with increased abdominal pain of upper abdomen. Febrile overnight. Lactate continues to rise. OBJECTIVE: Vital Signs Period Temp Pulse Resp BP Sys/Red Pulse Ox Last 24 Hr 97.6 F-101.7 F 60-125 17-20 107-152/49-95 97-99 Intake & Output 10/30/18 10/31/18 11/01/18 11/02/18 23:59 23:59 23:59 23:59 Intake Total 919.2 120 Output Total 1350 Balance -430.8 120 Weight 51.71 kg 48.251 kg Gen: mildly tachypneic at rest with some accessory muscle use Heart: tachycardic, irregular Lung: decreased breth sounds at the bases Abd: soft, mild TTP upper quadrants, no guarding/rebound Ext: less edema CBC, BMP 11/02/18 07:45 Active Medications Acetaminophen (Tylenol -) 650 mg PO Q6H PRN PRN Reason: FEVER Last Admin: 11/01/18 21:12 Dose: 650 mg Apixaban (Eliquis -) 5 mg PO BID [facility] Last Admin: 11/02/18 09:48 Dose: 5 mg Sodium Chloride (Normal Saline -) 500 mls @ 500 mls/hr IV ASDIR STA Stop: 11/02/18 10:40 Last Admin: 11/02/18 09:57 Dose: 500 mls/hr Sodium Chloride (Normal Saline -) 1,000 mls @ 125 mls/hr IV ASDIR ANITA Last Admin: 11/02/18 09:58 Dose: 125 mls/hr Insulin Aspart (Novolog Vial Sliding Scale -) 1 vial SQ ACHS [facility]; Protocol Last Admin: 11/01/18 21:48 Dose: Not Given Metoprolol Succinate (Toprol Xl -) 25 mg PO DAILY [facility] Last Admin: 11/02/18 10:07 Dose: 25 mg ASSESSMENT AND PLAN: Hyperosmolar Hyperglycemic Nonketotic State improving Severe Pulmonary HTN Paroxysmal Atrial Fibrillation with RVR Lactic Acidosis r/o Ischemic Bowel HTN CKD - glucose control - CT A/P with contrast if creatinine tolerates - continue IVF - rate controlled - continue anticoagulation - trend lactate - continue ICU monitoring critical care time spent in reviewing chart, evaluating patient and formulating plan 35 min
--- NOTE | 2018-11-02 11:14 | PN ---
Physical Exam: SUBJECTIVE: Patient seen and examined this AM. Became hypoglycemic overnight and was brought to ICU. This AM, complains of Lower quadrant abdominal pain; Has had it in the past however this began after eating breakfast. No associated Nausea, vomiting, diarrhea, constipation. OBJECTIVE: Vital Signs Period Temp Pulse Resp BP Sys/Red Pulse Ox Last 24 Hr 97.6 F-101.7 F 60-125 17-20 107-152/49-95 97-99 GENERAL: A&Ox3, NAD HEAD: NCAT EYES: PERRL, EOMI ENT: Dry mucous membranes NECK: Supple LUNGS: Diminished breath sounds at the bases, no wheezes, no crackles HEART: Regular rate and rhythm, S1, S2 without murmur ABDOMEN: Soft, Mild tenderness to palpation in the Lower quadrants b/l, nondistended, + bowel sounds, no guarding EXTREMITIES: 1+ edema NEUROLOGICAL: Cranial nerves II through XII grossly intact. Normal speech SKIN: Warm, dry, normal turgor, no rashes or lesions noted Laboratory Last Values WBC 11.5 K/mm3 (4.0-10.0) H 11/02/18 07:45 RBC 4.46 M/mm3 (3.60-5.2) 11/02/18 07:45 Hgb 15.0 GM/dL (10.7-15.3) 11/02/18 07:45 Hct 44.2 % (32.4-45.2) 11/02/18 07:45 MCV 99.2 fl (80-96) H 11/02/18 07:45 MCH 33.6 pg (25.7-33.7) 11/02/18 07:45 MCHC 33.9 g/dl (32.0-36.0) 11/02/18 07:45 RDW 13.7 % (11.6-15.6) 11/02/18 07:45 Plt Count 133 K/MM3 (134-434) L D 11/02/18 07:45 MPV 10.5 fl (7.5-11.1) 11/02/18 07:45 Absolute Neuts (auto) 7.9 K/mm3 (1.5-8.0) 11/01/18 03:30 Total Counted 100 10/31/18 18:39 Neutrophils % 87.5 % (42.8-82.8) H 11/01/18 03:30 Neutrophils % (Manual) 90.0 % (42.8-82.8) H 10/31/18 18:39 Band Neutrophils % 1.0 % 10/31/18 18:39 Lymphocytes % 11.2 % (8-40) D 11/01/18 03:30 Lymphocytes % (Manual) 6.0 % (8-40) L D 10/31/18 18:39 Monocytes % 1.1 % (3.8-10.2) L 11/01/18 03:30 Monocytes % (Manual) 3 % (3.8-10.2) L D 10/31/18 18:39 Eosinophils % 0.1 % (0-4.5) D 11/01/18 03:30 Basophils % 0.1 % (0-2.0) 11/01/18 03:30 Nucleated RBC % 0 % (0-0) 11/01/18 03:30 Platelet Estimate Decreased 10/31/18 18:39 Platelet Comment No clumping noted 10/31/18 18:39 PT with INR 11.60 SEC (9.7-13.0) 10/31/18 18:39 INR 0.98 (0.83-1.09) 10/31/18 18:39 PTT (Actin FS) 30.8 SECONDS (25.2-36.5) 10/31/18 18:39 VBG pH 7.41 (7.32-7.42) 10/31/18 18:39 POC VBG pCO2 53.3 mmHg (38-52) H 10/31/18 18:39 POC VBG pO2 39.2 mmHg (28-48) 10/31/18 18:39 Mixed VBG HCO3 33.0 meq/L (19-25) H 10/31/18 18:39 Sodium 146 mmol/L (136-145) H 11/01/18 05:25 Potassium 3.7 mmol/L (3.5-5.1) 11/01/18 05:25 Chloride 102 mmol/L (98-107) 11/01/18 05:25 Carbon Dioxide 35 mmol/L (21-32) H 11/01/18 05:25 Anion Gap 9 MMOL/L (8-16) 11/01/18 05:25 BUN 36 mg/dL (7-18) H 11/01/18 05:25 Creatinine 1.2 mg/dL (0.55-1.3) 11/01/18 05:25 Creat Clearance w eGFR 43.80 (>60) 11/01/18 05:25 POC Glucometer 343 UNITS (80-120) 11/02/18 07:17 Random Glucose 73 mg/dL (74-106) L 11/01/18 05:25 Hemoglobin A1c % 14.6 % (4.2-6.3) H 11/01/18 05:25 Lactic Acid 6.2 mmol/L (0.4-2.0) H* 11/02/18 07:45 Calcium 9.3 mg/dL (8.5-10.1) 11/01/18 05:25 Phosphorus 1.8 mg/dL (2.5-4.9) L 11/01/18 05:25 Magnesium 3.0 mg/dL (1.8-2.4) H 11/01/18 05:25 Total Bilirubin 0.4 mg/dL (0.2-1) 10/31/18 18:39 AST 28 U/L (15-37) 10/31/18 18:39 ALT 55 U/L (13-61) 10/31/18 18:39 Alkaline Phosphatase 142 U/L (45-117) H 10/31/18 18:39 Creatine Kinase 103 U/L (26-192) 11/01/18 05:25 Troponin I 0.26 ng/ml (0.00-0.05) H 11/01/18 08:22 B-Natriuretic Peptide 891.3 pg/ml (5-450) H 10/31/18 18:39 Total Protein 5.7 g/dl (6.4-8.2) L 10/31/18 18:39 Albumin 2.1 g/dl (3.4-5.0) L 10/31/18 18:39 Urine Color Ltyellow 10/31/18 21:54 Urine Appearance Slcloudy 10/31/18 21:54 Urine pH 5.0 (5.0-8.0) 10/31/18 21:54 Ur Specific [place] 1.021 (1.010-1.035) 10/31/18 21:54 Urine Protein 2+ (NEGATIVE) H 10/31/18 21:54 Urine Glucose (UA) 3+ (NEGATIVE) H D 10/31/18 21:54 Urine Ketones Negative (NEGATIVE) 10/31/18 21:54 Urine Blood Negative (NEGATIVE) 10/31/18 21:54 Urine Nitrite Negative (NEGATIVE) 10/31/18 21:54 Urine Bilirubin Negative (<2.0 mg/dL) 10/31/18 21:54 Urine Urobilinogen Negative mg/dL (0.2-1.0) 10/31/18 21:54 Ur Leukocyte Esterase Negative (NEGATIVE) 10/31/18 21:54 Urine WBC (Auto) 1 /hpf (3-5) 10/31/18 21:54 Urine RBC (Auto) 2 /hpf (0-3) 10/31/18 21:54 Ur Epithelial Cells Few /HPF (FEW) 10/31/18 21:54 Acetone, Qual Positive,trace (NEGATIVE) 10/31/18 21:00 Influenza A (Rapid) Negative 10/31/18 18:30 Influenza B (Rapid) Negative 10/31/18 18:30 Microbiology 10/31/18 21:54 Urine - Urine Clean Catch Urine Culture - Final NO GROWTH OBTAINED 10/31/18 18:39 Blood - Peripheral Venous Blood Culture - Preliminary NO GROWTH OBTAINED AFTER 24 HOURS, INCUBATION TO CONTINUE FOR 4 DAYS. 10/31/18 18:15 Blood - Peripheral Venous Blood Culture - Preliminary NO GROWTH OBTAINED AFTER 24 HOURS, INCUBATION TO CONTINUE FOR 4 DAYS. Active Medications Acetaminophen (Tylenol -) 650 mg PO Q6H PRN PRN Reason: FEVER Last Admin: 11/01/18 21:12 Dose: 650 mg Apixaban (Eliquis -) 5 mg PO BID ANITA Last Admin: 11/02/18 09:48 Dose: 5 mg Sodium Chloride (Normal Saline -) 500 mls @ 500 mls/hr IV ASDIR STA Stop: 11/02/18 10:40 Last Admin: 11/02/18 09:57 Dose: 500 mls/hr Sodium Chloride (Normal Saline -) 1,000 mls @ 125 mls/hr IV ASDIR ANITA Last Admin: 11/02/18 09:58 Dose: 125 mls/hr Insulin Aspart (Novolog Vial Sliding Scale -) 1 vial SQ ACHS [facility]; Protocol Last Admin: 11/01/18 21:48 Dose: Not Given Metoprolol Succinate (Toprol Xl -) 25 mg PO DAILY ANITA Last Admin: 11/02/18 10:07 Dose: 25 mg ASSESSMENT/PLAN: 73 y/o F with PMHx of HTN, HLD, NIDDM, Afib (on Eliquis), CKD who was admitted for HHS and transferred to ICU after an episode of Hypoglycemia. #Neuro -A&Ox3, NAD -Continue to monitor for changes in mental status #Cardio Tachycardia Lower extremity Edema Troponemia, Likely demand ischemia Elevated BNP Hx of PAF with RVR, HTN, HLD -Became tachycardic this AM to 140s, Given 1 dose Metoprolol tartrate 5mg IV -Stat Trop pending -Started on Metoprolol Succinate 25mg PO Daily -Stat EKG showed Sinus Tachycardia, VR 122, QTc 453 -Continue Apixaban 5mg PO BID -S/P 1/2L NS; Continue NS @ 125 mls/hr -Dr. Gutierres Consulted, appreciate Rec's, Hold home dose Amlodipine, Avoid hydralazine and AVN blockers -LE DUPLEX: No DVT is identified involving either leg #Pulmonary -Able to protect Airway -Supplemental O2 to maintain SpO2 > 90% #GI Elevated LFTs, Alk Phos -CT A/P with Oral and IV contrast to r/o Ischemic bowel -RUQ Abdominal US pending #Renal ANNA, Resolved Hypokalemia, Resolved Hypophosphatemia Hypernatremia, Resolved Hypermagnesemia Hx of CKD -Dr. Perez consulted, appreciate rec's -Continue NS @ 125 mls/hr -Replete Lytes PRN #Heme Macrocytosis Thrombocytopenia -Likely due to Sepsis -Continue to Trend #Endo Hypoglycemia overnight HHS Hx of NIDDM -Overnight FSG reached 21; Repeat was 161 -Encourage PO Intake -A1c 14.6 -BGMs Q4H; ISS ACHS #ID Lactic acidosis -Febrile earlier in the evening, TMax 101.7, Afebrile since -Leukocytosis 11.5 -UA revealed 2+ Protein, 3+ Glucose -Influenza negative -Stat UA, Blood cx ordered this AM -CXR: Some new atelectatic changes by the right base with nodular density at the right base which could represent a nipple shadow. -CT A/P with Oral and IV contrast to r/o Ischemic bowel -Continue NS @ 125 mls/hr -Acetaminophen PRN for Fevers -Trend Lactate #FEN -NS @ 125 mls/hr -Replete Lytes PRN -Diabetic Diet #PPx -DVT: Eliquis Dispo: Continue to monitor in ICU Visit type - Emergency Visit Emergency Visit: Yes ED Registration Date: 10/31/18 Care time: The patient presented to the Emergency Department on the above date and was hospitalized for further evaluation of their emergent condition. - New Patient This patient is new to me today: Yes Date on this admission: 11/02/18 - Critical Care Critical Care patient: Yes Total Critical Care Time (in minutes): 36 Critical Care Statement: The care of this patient involved high complexity decision making to prevent further life threatening deterioration of the patient 's condition and/or to evaluate & treat vital organ system(s) failure or risk of failure.
[2018-11-02] MEDS: INSULIN SLIDING SCALE (NOVOLOG) 1 VIAL SQ SCH ×3 (11:18→21:23)
[2018-11-02 11:19] LABS: ALBUMIN 1.9 g/dl (3.4-5.0); ALK PHOS 300 U/L (45-117); ANION GAP 14 MMOL/L (8-16); BILIRUBIN,TOTAL 0.3 mg/dL (0.2-1); BLOOD UREA NITROGEN 24 mg/dL (7-18); CALCIUM 8.6 mg/dL (8.5-10.1); CHLORIDE 100 mmol/L (98-107); CO2 28 mmol/L (21-32); GLUCOSE,RANDOM 288 mg/dL (74-106); POTASSIUM 3.9 mmol/L (3.5-5.1); SGOT/AST 108 U/L (15-37); SGPT/ALT 88 U/L (13-61); SODIUM 142 mmol/L (136-145); TOT PROT 5.9 g/dl (6.4-8.2)
--- NOTE | 2018-11-02 12:45 | EKG ---
Test Reason : Blood Pressure : / mmHG Vent. Rate : 122 BPM Atrial Rate : 122 BPM P-R Int : 000 ms QRS Dur : 080 ms QT Int : 318 ms P-R-T Axes : 000 011 065 degrees QTc Int : 453 ms SINUS TACHYCARDIA WITH PREMATURE ATRIAL COMPLEXES NONSPECIFIC ST ABNORMALITY ABNORMAL ECG Confirmed by ALVARO NERI MD ([id number]) on 11/02/2018 12:44:31 PM Referred By: Elsa LIRIANO Confirmed By:ALVARO NERI MD
[2018-11-02 14:26] LABS: URINE APPEARANCE SLCLOUDY; URINE BILIRUBIN NEGATIVE (<2.0 mg/dL); URINE COLOR YELLOW; URINE GLUCOSE (UA) 2+ (NEGATIVE); URINE KETONE NEGATIVE (NEGATIVE); URINE LEUK ESTERASE NEGATIVE (NEGATIVE); URINE NITRITE POSITIVE (NEGATIVE); URINE PROTEIN 2+ (NEGATIVE); URINE UROBILINOGEN NEGATIVE mg/dL (0.2-1.0)
[2018-11-02] MEDS ORDERED: PIPERACILLIN/TAZOBACTAM 3.375 GM VIAL IVPB ONE ×2 (14:57→23:07)
[2018-11-02] MEDS ORDERED: DEXTROSE 5%-WATER - 50 ML IVPB ONE ×2 (14:57→23:07)
[2018-11-02 14:59] LABS: URINE BACTERIA FEW /hpf (NONE SEEN)
--- NOTE | 2018-11-02 15:32 | PN ---
Progress Note (short form) - Note Progress Note: ID consult dictated chart reviewed pateint examined has been on prednisone since the fall history drug induced lupus (hydralazine) has pulmonary HTN, stge 3 ckd and biopsy proven focal segmental glomerulosclerosis now admitted 10/31 with LE edema and hyperglycemia developed fever last night and hypoglycemia noted to have abdominal pain as well- now resolved rising lactic acid agree with blood cultures and empiric zosyn for intraabdominal coverage agree with IVF just back from ct scan and results pending r/o ischemic bowel rising lfts- r/o biliary disease-abdominal ultrasound pending Problem List - Problems (1) Fever Code(s): R50.9 - FEVER, UNSPECIFIED (2) Elevated lactic acid level Code(s): R79.89 - OTHER SPECIFIED ABNORMAL FINDINGS OF BLOOD CHEMISTRY (3) Abdominal pain Code(s): R10.9 - UNSPECIFIED ABDOMINAL PAIN
[2018-11-02] MEDS: PIPERACILLIN/TAZOB 3.375 GM 3.375 GM in DEXTROSE 5%-WATER - 50 ML IVPB SCH ×2 (15:49→20:00)
--- NOTE | 2018-11-02 18:02 | CONS ---
DATE OF CONSULTATION: DATE OF DICTATION: 11/02/2018 REQUESTED BY: Hospitalist service. This is a 73-year-old woman who had a prolonged admission in the fall of 2017, at which time she was felt to have hydralazine-induced lupus. She had an admission in May with hemoptysis. She underwent a workup that included multiple sputums, and evaluation for tuberculosis. She subsequently had apparently a kidney biopsy and was diagnosed with focal segmental glomerulosclerosis. She has been on prednisone, she reports, since fall. She is now admitted on the with lower extremity edema and hyperglycemia. Her glucose on admission was 826. She was admitted to the ICU and transferred out after 24 hours. Overnight on the floor, she had a fever and then she became hypoglycemic and was transferred back to the ICU. This morning, she was noted to have abdominal pain, concerns for ischemic colitis were raised. Cultures were obtained and she was started on piperacillin and tazobactam. Ultrasound of the abdomen as well as CAT scan of the abdomen and pelvis are all pending at this time. I am asked to see her for antibiotic recommendations. Her past medical history is noted for history of atrial fibrillation, hypertension, hyperlipidemia, asthma, diabetes. She has stage 3 chronic kidney disease. She has hydralazine-induced lupus. She has a history of severe pulmonary hypertension with tricuspid regurgitation. She has paroxysmal atrial fibrillation. She currently has just returned from CAT scan. Her abdominal pain has resolved. She has not had a bowel movement since admission. She has no vomiting. She is hungry. Her past medical history is as previously stated. SOCIAL HISTORY: She lives alone. There is no history of any cigarette use. She has no known drug allergies. Her medications at home include Alphagan eyedrops, Bacid, Feosol, ProAir, Eliquis, Norvasc, Lasix, and she was taking prednisone. REVIEW OF SYSTEMS: Currently she is feeling much improved and has no complaints. Her primary doctor is Dr. Jeffrey. She sees Dr. Gutierres for cardiology, and Dr. Perez for nephrology. PHYSICAL EXAMINATION: General: She is awake and alert. Vital Signs: Her T-max was 101.7 overnight. Current temperature is 100.7. Pulse 93. Blood pressure 165/74. Respiratory rate 26. She weighs 48 kg. HEENT: Normocephalic. Her eyes are anicteric. She has no thrush. Neck: Supple. Lungs: Clear to auscultation. Heart: Regular rate and rhythm. Abdomen: Soft, distended, but she has no tenderness at all. She has good bowel sounds. Extremities: Trace edema. Her labs are notable for a white count of 11.4, hemoglobin 15, platelets 133. BUN 24, creatinine 1. Her lactic acid was 6.2, and repeat is pending. AST of 108, ALT of 88, alkaline phosphatase 300. Her urinalysis is negative, with 2 white cells. Stool occult blood is negative. Her influenza screen was done on admission and is negative. Cultures have been sent. In summary, this is a 73-year-old woman with pulmonary hypertension, CKD, history of drug-induced lupus, who now has abdominal pain, rising lactic acid, also abnormal LFTs. I would agree with blood cultures and empiric Zosyn for intraabdominal coverage. Agree with IV fluids. We are waiting for results of her CAT scan as well as her abdominal ultrasound. Concerns would be for ischemic bowel as well as biliary disease with these complaints. Further recommendations to follow. The case was discussed with the ICU residents. MIHIR SPICER M.D. [id number]
--- NOTE | 2018-11-02 19:18 | PN ---
Teaching Attending Note Name of Resident: Agusto Whelan ATTENDING PHYSICIAN STATEMENT I saw and evaluated the patient. I reviewed the resident's note and discussed the case with the resident. I agree with the resident's findings and plan as documented. SUBJECTIVE: Patient in ICU; events are noted overnight. OBJECTIVE: Vital Signs Temperature 99.4 F 11/02/18 16:00 Pulse Rate 69 11/02/18 18:26 Respiratory Rate 71 H 11/02/18 18:26 Blood Pressure 131/78 11/02/18 18:26 O2 Sat by Pulse Oximetry (%) 97 11/02/18 09:00 GENERAL: The patient is awake, alert, and oriented, in no acute distress. HEAD: Normal with no signs of trauma. EYES: PERRL, extraocular movements intact, sclera anicteric, conjunctiva clear. ENT: Ears normal, no exudates, moist mucous membranes. NECK: Trachea midline, full range of motion, supple. LUNGS: decrease Breath sounds BL, no wheezes, no crackles, no accessory muscle use. HEART: Regular rate and rhythm, S1, S2 , EVY 3/6 , no rub or gallop. ABDOMEN: Soft, nontender, nondistended, normoactive bowel sounds, no guarding, no rebound, no hepatosplenomegaly, no masses. EXTREMITIES: 2+ pulses, warm, 2 plus edema b/l. NEUROLOGICAL: Cranial nerves II through XII grossly intact. Normal speech, gait not observed. PSYCH: Normal mood, normal affect. SKIN: Warm, dry, normal turgor, no rashes or lesions noted CBCD WBC 11.5 K/mm3 (4.0-10.0) H 11/02/18 07:45 RBC 4.46 M/mm3 (3.60-5.2) 11/02/18 07:45 Hgb 15.0 GM/dL (10.7-15.3) 11/02/18 07:45 Hct 44.2 % (32.4-45.2) 11/02/18 07:45 MCV 99.2 fl (80-96) H 11/02/18 07:45 MCHC 33.9 g/dl (32.0-36.0) 11/02/18 07:45 RDW 13.7 % (11.6-15.6) 11/02/18 07:45 Plt Count 133 K/MM3 (134-434) L D 11/02/18 07:45 MPV 10.5 fl (7.5-11.1) 11/02/18 07:45 CMP Sodium 142 mmol/L (136-145) 11/02/18 07:45 Potassium 3.9 mmol/L (3.5-5.1) 11/02/18 07:45 Chloride 100 mmol/L (98-107) 11/02/18 07:45 Carbon Dioxide 28 mmol/L (21-32) 11/02/18 07:45 Anion Gap 14 MMOL/L (8-16) 11/02/18 07:45 BUN 24 mg/dL (7-18) H 11/02/18 07:45 Creatinine 1.0 mg/dL (0.55-1.3) 11/02/18 07:45 Creat Clearance w eGFR 54.05 (>60) 11/02/18 07:45 Random Glucose 288 mg/dL (74-106) H 11/02/18 07:45 Calcium 8.6 mg/dL (8.5-10.1) 11/02/18 07:45 Total Bilirubin 0.3 mg/dL (0.2-1) 11/02/18 07:45 AST 108 U/L (15-37) H 11/02/18 07:45 ALT 88 U/L (13-61) H 11/02/18 07:45 Alkaline Phosphatase 300 U/L (45-117) H 11/02/18 07:45 Total Protein 5.9 g/dl (6.4-8.2) L 11/02/18 07:45 Albumin 1.9 g/dl (3.4-5.0) L 11/02/18 07:45 CARDIAC ENZYMES Creatine Kinase 103 U/L (26-192) 11/01/18 05:25 Troponin I 0.30 ng/ml (0.00-0.05) H 11/02/18 12:10 Current Medications Generic Name Dose Route Start Last Admin Trade Name Freq PRN Reason Stop Dose Admin Acetaminophen 650 mg 11/01/18 19:08 11/01/18 21:12 Tylenol - PO 650 mg Q6H PRN Administration FEVER Apixaban 5 mg 11/01/18 22:00 11/02/18 09:48 Eliquis - PO 5 mg BID ANITA Administration Sodium Chloride 1,000 mls @ 125 mls/hr 11/02/18 09:45 11/02/18 09:58 Normal Saline - IV 125 mls/hr ASDIR ANITA Administration Piperacillin Sod/Tazobactam 50 mls @ 100 mls/hr 11/02/18 12:00 11/02/18 15:49 Sod 3.375 gm/ Dextrose IVPB 100 mls/hr Q8H-IV ANITA Administration Protocol Insulin Aspart 1 vial 11/01/18 22:00 11/02/18 17:11 Novolog Vial Sliding Scale - SQ Not Given ACHS [facility] Protocol Valacyclovir HCl 500 mg 11/02/18 22:00 Valtrex - PO BID ANITA Home Medications Medication Instructions Recorded Brimonidine Tartrate [Alphagan 1 drop OU BID 06/02/18 0.15% -] Lactobacillus Acidophilus [Bacid -] 1 tab PO DAILY #30 tab 06/17/18 Ferrous Sulfate [Feosol] 325 mg PO DAILY 07/15/18 Albuterol Sulfate [Proair Hfa] 8.5 gm IH DAILY 07/21/18 Apixaban [Eliquis] 5 mg PO DAILY 07/21/18 Amlodipine Besylate [Norvasc -] 10 mg PO DAILY 10/31/18 Furosemide [Lasix -] 40 mg PO DAILY 10/31/18 ASSESSMENT AND PLAN: Patient is a 73yo female with PMHx of pulmonary HTN, A-fib (on eliquis), CHF, DM presents to the ER for progressively worsening LE edema over the last 2-3 weeks. Found to have elevated glucose and in hyperosmolar hyperglycemic state. # Hyperosmolar hyperglycemic state with sliding scale with coverage, continue #Worsening LE edema: Hold of Amlodipine, LE U/S is pending #Elevated trops: No signs of ACS, most likely due to demand ischemia. cardiology consult dr appreciated. # severe pulm HTN with chronic right-sided CHF, severe TR: No sign of CHF clinically #CKD :stable nephro consult appreciated #P-Afib with rate controlled on Eliqiuis with dose adjusted according to kidney function. #HTN on Lasix will hold amlodipine in setting of worsening LE edema # Lactic acidosis monitor Lactic acid. DVT ppx: on eliquis will keep monitorng , if stabel will discharge in am
[2018-11-02] MEDS: valACYclovir HCL 500 MG TABLET (FP) PO SCH (21:12)
[2018-11-03] MEDS: PIPERACILLIN/TAZOB 3.375 GM 3.375 GM in DEXTROSE 5%-WATER - 50 ML IVPB SCH ×3 (01:03→17:41)
[2018-11-03] MEDS: ACETAMINOPHEN 325 MG TABLET (FP) PO PRN (02:10)
[2018-11-03] MEDS: INSULIN SLIDING SCALE (NOVOLOG) 1 VIAL SQ SCH ×4 (06:36→22:32)
[2018-11-03 06:44] LABS: BASO % 0.2 % (0-2.0); EOS % 0.4 % (0-4.5); HEMATOCRIT 34.3 % (32.4-45.2); HEMOGLOBIN 11.7 GM/dL (10.7-15.3); MCH 32.9 pg (25.7-33.7); MEAN CELL VOLUME 96.9 fl (80-96); NEUT % 85.4 % (42.8-82.8); PLATELET COUNT 108 K/MM3 (134-434); RBC 3.54 M/mm3 (3.60-5.2); RDW 13.5 % (11.6-15.6); WHITE BLOOD COUNT 7.6 K/mm3 (4.0-10.0)
--- NOTE | 2018-11-03 08:34 | PN ---
Progress Note (short form) - Note Progress Note: abdominal pain resolved no bm still with fever cat scan has not been read hungry wants to eat feels sob Vital Signs Period Temp Pulse Resp BP Sys/Red Pulse Ox Last 24 Hr 99 F-101.2 F 69-125 17-71 120-165/63-95 97-97 cor-rrr lungs decreased bs at bases abd soft,nt ext trace edema +punched out lesions labia and perirectal area CBC, BMP 11/03/18 05:30 Microbiology 11/01/18 22:18 Blood - Peripheral Venous Blood Culture - Preliminary NO GROWTH OBTAINED AFTER 24 HOURS, INCUBATION TO CONTINUE FOR 4 DAYS. 10/31/18 18:39 Blood - Peripheral Venous Blood Culture - Preliminary NO GROWTH OBTAINED AFTER 48 HOURS, INCUBATION TO CONTINUE FOR 3 DAYS. 10/31/18 18:15 Blood - Peripheral Venous Blood Culture - Preliminary NO GROWTH OBTAINED AFTER 48 HOURS, INCUBATION TO CONTINUE FOR 3 DAYS. 10/31/18 21:54 Urine - Urine Clean Catch Urine Culture - Final NO GROWTH OBTAINED a/p fevers-source unclear ws she on correction steroids? please check with director equipment check am cortisol today lactic acid improved f/u ct scan f/u cultures suspect genital hsv-po valtrex rising lfts- r/o biliary disease-ultrasound no ductal dilatation- f/u cultures f/u lfts today repeat cxray today d/w ICU service
[2018-11-03 08:38] LABS: ALBUMIN 1.4 g/dl (3.4-5.0); ALK PHOS 189 U/L (45-117); ANION GAP 4 MMOL/L (8-16); BILIRUBIN,TOTAL 0.6 mg/dL (0.2-1); BLOOD UREA NITROGEN 12 mg/dL (7-18); CALCIUM 7.3 mg/dL (8.5-10.1); CHLORIDE 102 mmol/L (98-107); CO2 36 mmol/L (21-32); CREATININE 0.7 mg/dL (0.55-1.3); GLUCOSE,RANDOM 135 mg/dL (74-106); MAGNESIUM 1.8 mg/dL (1.8-2.4); PHOSPHOROUS 1.6 mg/dL (2.5-4.9); POTASSIUM 3.3 mmol/L (3.5-5.1); SGOT/AST 57 U/L (15-37); SGPT/ALT 60 U/L (13-61); SODIUM 142 mmol/L (136-145); TOT PROT 4.4 g/dl (6.4-8.2)
[2018-11-03] MEDS ORDERED: PIPERACILLIN/TAZOBACTAM 3.375 GM VIAL IVPB ONE ×3 (08:44→22:02)
[2018-11-03] MEDS ORDERED: PT OWN MED DRAWER 7, Y5N ONE (08:44)
[2018-11-03] MEDS ORDERED: DEXTROSE 5%-WATER - 50 ML IVPB ONE ×2 (08:44→22:02)
[2018-11-03] MEDS: valACYclovir HCL 500 MG TABLET (FP) PO SCH ×2 (09:05→22:05)
[2018-11-03] MEDS: APIXABAN 5 MG TABLET PO SCH ×2 (09:06→22:05)
[2018-11-03] MEDS ORDERED: POTASSIUM CHLORIDE ORAL LIQUID 20 MEQ/15 ML PO ONE (09:30)
[2018-11-03] MEDS ORDERED: NAPH,MB-DB/K PH,MBDB POWDER PACKET PO ONE (09:30)
--- NOTE | 2018-11-03 11:01 | PN ---
Progress Note (short form) - Note Progress Note: Patient is feeling better. No nausea or vomiting. No headache. Vital Signs Temperature 99.5 F 11/03/18 10:00 Pulse Rate 96 H 11/03/18 10:00 Respiratory Rate 22 H 11/03/18 10:00 Blood Pressure 143/83 11/03/18 10:00 O2 Sat by Pulse Oximetry (%) 97 11/03/18 09:00 GENERAL: The patient is awake, alert, and fully oriented, in no acute distress. HEAD: Normal with no signs of trauma. EYES: PERRL, EOMI , sclera anicteric, conjunctiva clear. ENT: Ears normal, no exudates, moist mucous membranes. NECK: Trachea midline, full range of motion, supple. LUNGS: decrease Breath sounds BL, no wheezes, no crackles, no accessory muscle use. HEART: RRR , S1 S2 positive, EVY 3/6 , no rub or gallop. ABDOMEN: Soft, NT, ND, normoactive bowel sounds, no hepatosplenomegaly, no masses. EXTREMITIES: 2+ pulses, warm, 2 plus edema b/l. NEUROLOGICAL: Cranial nerves II through XII grossly intact. Normal speech. PSYCH: Normal mood, normal affect. SKIN: Warm, dry, normal turgor, no rashes or lesions noted CBCD WBC 7.6 K/mm3 (4.0-10.0) 11/03/18 05:30 RBC 3.54 M/mm3 (3.60-5.2) L 11/03/18 05:30 Hgb 11.7 GM/dL (10.7-15.3) 11/03/18 05:30 Hct 34.3 % (32.4-45.2) D 11/03/18 05:30 MCV 96.9 fl (80-96) H 11/03/18 05:30 MCHC 34.0 g/dl (32.0-36.0) 11/03/18 05:30 RDW 13.5 % (11.6-15.6) 11/03/18 05:30 Plt Count 108 K/MM3 (134-434) L 11/03/18 05:30 MPV 10.0 fl (7.5-11.1) 11/03/18 05:30 CMP Sodium 142 mmol/L (136-145) 11/03/18 05:30 Potassium 3.3 mmol/L (3.5-5.1) L 11/03/18 05:30 Chloride 102 mmol/L (98-107) 11/03/18 05:30 Carbon Dioxide 36 mmol/L (21-32) H 11/03/18 05:30 Anion Gap 4 MMOL/L (8-16) L 11/03/18 05:30 BUN 12 mg/dL (7-18) 11/03/18 05:30 Creatinine 0.7 mg/dL (0.55-1.3) 11/03/18 05:30 Creat Clearance w eGFR > 60 (>60) 11/03/18 05:30 Random Glucose 135 mg/dL (74-106) H 11/03/18 05:30 Calcium 7.3 mg/dL (8.5-10.1) L 11/03/18 05:30 Total Bilirubin 0.6 mg/dL (0.2-1) 11/03/18 05:30 AST 57 U/L (15-37) H 11/03/18 05:30 ALT 60 U/L (13-61) 11/03/18 05:30 Alkaline Phosphatase 189 U/L (45-117) H 11/03/18 05:30 Total Protein 4.4 g/dl (6.4-8.2) L 11/03/18 05:30 Albumin 1.4 g/dl (3.4-5.0) L 11/03/18 05:30 CARDIAC ENZYMES Creatine Kinase 103 U/L (26-192) 11/01/18 05:25 Troponin I 0.26 ng/ml (0.00-0.05) H 11/03/18 05:30 Current Medications Generic Name Dose Route Start Last Admin Trade Name Freq PRN Reason Stop Dose Admin Acetaminophen 650 mg 11/01/18 19:08 11/03/18 02:10 Tylenol - PO 650 mg Q6H PRN Administration FEVER Apixaban 5 mg 11/01/18 22:00 11/03/18 09:06 Eliquis - PO 5 mg BID ANITA Administration Sodium Chloride 1,000 mls @ 125 mls/hr 11/02/18 09:45 11/02/18 09:58 Normal Saline - IV 125 mls/hr ASDIR ANITA Administration Piperacillin Sod/Tazobactam 50 mls @ 100 mls/hr 11/02/18 12:00 11/03/18 09:05 Sod 3.375 gm/ Dextrose IVPB 100 mls/hr Q8H-IV ANITA Administration Protocol Insulin Aspart 1 vial 11/01/18 22:00 11/03/18 06:36 Novolog Vial Sliding Scale - SQ Not Given ACHS ANITA Protocol Valacyclovir HCl 500 mg 11/02/18 22:00 11/03/18 09:05 Valtrex - PO 500 mg BID ANITA Administration Home Medications Medication Instructions Recorded Brimonidine Tartrate [Alphagan 1 drop OU BID 06/02/18 0.15% -] Lactobacillus Acidophilus [Bacid -] 1 tab PO DAILY #30 tab 06/17/18 Ferrous Sulfate [Feosol] 325 mg PO DAILY 07/15/18 Albuterol Sulfate [Proair Hfa] 8.5 gm IH DAILY 07/21/18 Apixaban [Eliquis] 5 mg PO DAILY 07/21/18 Amlodipine Besylate [Norvasc -] 10 mg PO DAILY 10/31/18 Furosemide [Lasix -] 40 mg PO DAILY 10/31/18 Assessment/plan: Patient is a 73yo female with PMHx of pulmonary HTN, A-fib (on eliquis), CHF, DM presents to the ER for progressively worsening LE edema over the last 2-3 weeks. Found to have elevated glucose and in hyperosmolar hyperglycemic state. # Hyperosmolar hyperglycemic state with sliding scale with coverage improved. #Worsening LE edema: Hold of Amlodipine. #Elevated trops: No signs of ACS, most likely due to demand ischemia. cardiology consult appreciated. # severe pulm HTN with chronic right-sided CHF, severe TR: No sign of CHF clinically #CKD :stable nephro consult appreciated #P-Afib with rate controlled on Eliquis with dose adjusted according to kidney function. #Electrolyte imbalance replete: Potassium and phosphorus #HTN on Lasix will hold amlodipine in setting of worsening LE edema # Lactic acidosis monitor Lactic acid. DVT ppx: on eliquis Visit type - Emergency Visit Emergency Visit: Yes ED Registration Date: 10/31/18 Care time: The patient presented to the Emergency Department on the above date and was hospitalized for further evaluation of their emergent condition. - New Patient This patient is new to me today: No - Critical Care Critical Care patient: No - Discharge Referral Referred to [facility] No
--- NOTE | 2018-11-03 11:04 | PN ---
Progress Note, Physician Chief Complaint: leg swelling History of Present Illness: no more abd pain today. sob yest resolved with her prn albuterol, felt like her asthma no cp, palpit leg swelling resolved - Current Medication List Current Medications: Active Medications Acetaminophen (Tylenol -) 650 mg PO Q6H PRN PRN Reason: FEVER Last Admin: 11/03/18 02:10 Dose: 650 mg Apixaban (Eliquis -) 5 mg PO BID [facility] Last Admin: 11/03/18 09:06 Dose: 5 mg Sodium Chloride (Normal Saline -) 1,000 mls @ 125 mls/hr IV ASDIR [facility] Last Admin: 11/02/18 09:58 Dose: 125 mls/hr Piperacillin Sod/Tazobactam (Sod 3.375 gm/ Dextrose) 50 mls @ 100 mls/hr IVPB Q8H-IV [facility]; Protocol Last Admin: 11/03/18 09:05 Dose: 100 mls/hr Insulin Aspart (Novolog Vial Sliding Scale -) 1 vial SQ ACHS [facility]; Protocol Last Admin: 11/03/18 06:36 Dose: Not Given Valacyclovir HCl (Valtrex -) 500 mg PO BID [facility] Last Admin: 11/03/18 09:05 Dose: 500 mg - Objective Vital Signs: Vital Signs Temperature 99.5 F 11/03/18 10:00 Pulse Rate 96 H 11/03/18 10:00 Respiratory Rate 22 H 11/03/18 10:00 Blood Pressure 143/83 11/03/18 10:00 O2 Sat by Pulse Oximetry (%) 97 11/03/18 09:00 Constitutional: Yes: No Distress, Calm Eyes: No: Sclera Icterus HENT: No: Nasal Congestion Cardiovascular: Yes: Regular Rate and Rhythm, Murmur (EVY at LSB), S1, S2, Other (PMI non diplaced). No: JVD, Gallop Respiratory: Yes: CTA Bilaterally. No: Accessory Muscle Use Gastrointestinal: Yes: Normal Bowel Sounds, Soft. No: Hepatomegaly (no pulsatile liver), Tenderness Musculoskeletal: Yes: Other (No kyphosis) Extremities: No: Cold Edema: Yes (trace LEs) Integumentary: No: Jaundice Neurological: Yes: Alert, Oriented (x3) Psychiatric: No: Agitated Labs: CBC, BMP 11/03/18 05:30 11/03/18 05:30 INR, PTT INR 0.98 (0.83-1.09) 10/31/18 18:39 Assessment/Plan ECG: NSR with APCs, normal intervals/axis. inc RBBB. nonsp TWAs (no change vs ) CXR: enlarged heart (unchanged vs 05/2018). clear lungs/pleura tele: NSR with sinus tachy/freq APCs and runs of PAT. VT x 3b LE edema: -suspect etiology is venous insufficiency and CCB effect > right sided CHF -JV pressure appears normal, and she has had no sob or signif hypoxia -edema improving here with leg elevation -continue holding amlodipine -start SHAHID stockings -defer lasix for now--if osmolarity status/lytes/DM stable tomorrow, consider start PO vs IV lasix depending on edema appearance severe pulm HTN with chronic right-sided CHF, severe TR: -etiology unknown--no signs CTEPH on V/Q, no [id number] shunt on CTA (cannot tolerate MRI-claustrophobia), no signs L sided diast CHF clinically and on stress echo. pt refused definitive assessment with RHC -BNP 800 (2K prior) -had been well-compensated and clinically euvolemic, NYHA III (1 flight of stairs) for long time -suspect edema is venous insy/ccb effect--much improved here off amlodipine with leg elevation. holding lasix -sat.s ok here, renal fxn stable, no signs hepatic congestion. do not suspect decompensated R heart failure, as disc'd above low-grade temp (100.3), lactic acidosis, abdominal pain, abnormal LFTs, low albumin (1.4): -lactate now normalized -sepsis workup thus far negative -AST/LT/alk phos bumped slightly, now trending down. RUQ sono WNL. CT abdomen done, results pending -BPs low normal to normal range, peripherally she is warm--do not suspect cardiogenic shock/low output state from RV dysfunction -not in DKA per d/w critical care -doubt sx's or LFTs are from congestive hepatopathy in light of no JVD and no appreciable hepatomeg/pulsatility on exam paroxysmal AFib, PAT: -rare episodes on event monitor and stress test -no standing AVN blockers given sinus node dysfunction on prior event monitor -given metoprolol overnight for tachy (sinus tach with runs of PAT)--no tessie -tachy likely was reactive to acute hypoglycemia--no standing AVN blockers. cont tele -continue home Eliquis (5 bid) VTach: -3 beat run on tele--resolved since -normal LFSF--low risk for malignant arrhythmia -today's lytes pending: replete K to 4, Mag to 2 DM with hyperosmolar/hyperglycemic state, no mental status changes: -given IVF overnight--per d/w critical care this will be stopped today -A1c 14 -glycemia tx per crit care HTN: -historically labile bp goes very hi when med lapses -was controlled on amlodipine, ARB long time -ARB held for ANNA--much lower potency regimen (losartan 25) resumed -BP 150s in office last week--currently controlled here -no amlodipine (edema) -no AVN blockers, including clonidine (asymptomatic SN dysfunction on event monitor--would need PPM to enable safe use this class of meds) -no hydral (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
--- NOTE | 2018-11-03 11:08 | PN ---
Physical Exam: SUBJECTIVE: Patient seen and examined at bedside. States that her abdominal pain has improved. Denies chest pain, SOB, nausea, vomiting, diarrhea, fevers, chills. OBJECTIVE: Vital Signs Period Temp Pulse Resp BP Sys/Red Pulse Ox Last 24 Hr 99 F-101.2 F 69-96 17-71 120-165/63-84 97-97 GENERAL: A&Ox3, no acute distress EYES: PERRLA, EOMI ENT: Moist mucus membranes NECK: No JVD LUNGS: CTA, no wheezes HEART: mildly tachycardic, no murmurs ABDOMEN: Soft, nontender, BS present MUSCULOSKELETAL: No CVA Tenderness EXTREMITIES: 2+ pulses, no edema. NEUROLOGICAL: Cranial nerves II-XII intact. Laboratory Results - last 24 hr 11/02/18 11/02/18 11/02/18 07:45 11:11 12:10 WBC RBC Hgb Hct MCV MCH MCHC RDW Plt Count MPV Absolute Neuts (auto) Neutrophils % Lymphocytes % Monocytes % Eosinophils % Basophils % Nucleated RBC % Sodium 142 Potassium 3.9 Chloride 100 Carbon Dioxide 28 Anion Gap 14 BUN 24 H Creatinine 1.0 Creat Clearance w eGFR 54.05 POC Glucometer 190 Random Glucose 288 H Lactic Acid Calcium 8.6 Phosphorus Magnesium Total Bilirubin 0.3 AST 108 H ALT 88 H Alkaline Phosphatase 300 H Troponin I 0.25 H 0.30 H Total Protein 5.9 L Albumin 1.9 L Urine Color Urine Appearance Urine pH Ur Specific [place] Urine Protein Urine Glucose (UA) Urine Ketones Urine Blood Urine Nitrite Urine Bilirubin Urine Urobilinogen Ur Leukocyte Esterase Urine WBC (Auto) Urine RBC (Auto) Urine Bacteria 11/02/18 11/02/18 11/02/18 13:30 15:08 16:41 WBC RBC Hgb Hct MCV MCH MCHC RDW Plt Count MPV Absolute Neuts (auto) Neutrophils % Lymphocytes % Monocytes % Eosinophils % Basophils % Nucleated RBC % Sodium Potassium Chloride Carbon Dioxide Anion Gap BUN Creatinine Creat Clearance w eGFR POC Glucometer 133 Random Glucose Lactic Acid 3.3 H* Calcium Phosphorus Magnesium Total Bilirubin AST ALT Alkaline Phosphatase Troponin I Total Protein Albumin Urine Color Yellow Urine Appearance Slcloudy Urine pH 7.0 D Ur Specific [place] 1.014 Urine Protein 2+ H Urine Glucose (UA) 2+ H Urine Ketones Negative Urine Blood Negative Urine Nitrite Positive Urine Bilirubin Negative Urine Urobilinogen Negative Ur Leukocyte Esterase Negative Urine WBC (Auto) 2 Urine RBC (Auto) 1 Urine Bacteria Few 11/02/18 11/02/18 11/03/18 20:05 21:20 05:30 WBC 7.6 RBC 3.54 L Hgb 11.7 Hct 34.3 D MCV 96.9 H MCH 32.9 MCHC 34.0 RDW 13.5 Plt Count 108 L MPV 10.0 Absolute Neuts (auto) 6.5 Neutrophils % 85.4 H Lymphocytes % 12.0 Monocytes % 2.0 L D Eosinophils % 0.4 D Basophils % 0.2 Nucleated RBC % 0 Sodium Potassium Chloride Carbon Dioxide Anion Gap BUN Creatinine Creat Clearance w eGFR POC Glucometer 125 Random Glucose Lactic Acid Calcium Phosphorus Magnesium Total Bilirubin AST ALT Alkaline Phosphatase Troponin I 0.30 H Total Protein Albumin Urine Color Urine Appearance Urine pH Ur Specific [place] Urine Protein Urine Glucose (UA) Urine Ketones Urine Blood Urine Nitrite Urine Bilirubin Urine Urobilinogen Ur Leukocyte Esterase Urine WBC (Auto) Urine RBC (Auto) Urine Bacteria 11/03/18 11/03/18 11/03/18 05:30 05:30 05:30 WBC RBC Hgb Hct MCV MCH MCHC RDW Plt Count MPV Absolute Neuts (auto) Neutrophils % Lymphocytes % Monocytes % Eosinophils % Basophils % Nucleated RBC % Sodium 142 Potassium 3.3 L Chloride 102 Carbon Dioxide 36 H Anion Gap 4 L BUN 12 Creatinine 0.7 Creat Clearance w eGFR > 60 POC Glucometer Random Glucose 135 H Lactic Acid 1.4 Calcium 7.3 L Phosphorus 1.6 L Magnesium 1.8 Total Bilirubin 0.6 AST 57 H ALT 60 Alkaline Phosphatase 189 H Troponin I 0.26 H Total Protein 4.4 L Albumin 1.4 L Urine Color Urine Appearance Urine pH Ur Specific [place] Urine Protein Urine Glucose (UA) Urine Ketones Urine Blood Urine Nitrite Urine Bilirubin Urine Urobilinogen Ur Leukocyte Esterase Urine WBC (Auto) Urine RBC (Auto) Urine Bacteria 11/03/18 11/03/18 06:25 10:46 WBC RBC Hgb Hct MCV MCH MCHC RDW Plt Count MPV Absolute Neuts (auto) Neutrophils % Lymphocytes % Monocytes % Eosinophils % Basophils % Nucleated RBC % Sodium Potassium Chloride Carbon Dioxide Anion Gap BUN Creatinine Creat Clearance w eGFR POC Glucometer 130 159 Random Glucose Lactic Acid Calcium Phosphorus Magnesium Total Bilirubin AST ALT Alkaline Phosphatase Troponin I Total Protein Albumin Urine Color Urine Appearance Urine pH Ur Specific [place] Urine Protein Urine Glucose (UA) Urine Ketones Urine Blood Urine Nitrite Urine Bilirubin Urine Urobilinogen Ur Leukocyte Esterase Urine WBC (Auto) Urine RBC (Auto) Urine Bacteria Active Medications Generic Name Dose Route Start Last Admin Trade Name Freq PRN Reason Stop Dose Admin Acetaminophen 650 mg 11/01/18 19:08 11/03/18 02:10 Tylenol - PO 650 mg Q6H PRN Administration FEVER Apixaban 5 mg 11/01/18 22:00 11/03/18 09:06 Eliquis - PO 5 mg BID [facility] Administration Sodium Chloride 1,000 mls @ 125 mls/hr 11/02/18 09:45 11/02/18 09:58 Normal Saline - IV 125 mls/hr ASDIR [facility] Administration Piperacillin Sod/Tazobactam 50 mls @ 100 mls/hr 11/02/18 12:00 11/03/18 09:05 Sod 3.375 gm/ Dextrose IVPB 100 mls/hr Q8H-IV [facility] Administration Protocol Potassium Phosphate 30 mm/ 510 mls @ 62.5 mls/hr 11/03/18 11:04 Sodium Chloride IVPB 11/03/18 19:13 ONCE ONE Insulin Aspart 1 vial 11/01/18 22:00 11/03/18 06:36 Novolog Vial Sliding Scale - SQ Not Given ACHS [facility] Protocol Valacyclovir HCl 500 mg 11/02/18 22:00 11/03/18 09:05 Valtrex - PO 500 mg BID [facility] Administration ASSESSMENT/PLAN: 73 y/o F with PMHx of HTN, HLD, NIDDM, Afib (on Eliquis), CKD who was admitted for [facility] and transferred to ICU after an episode of Hypoglycemia. #Neurological -A&Ox3, NAD #Cardiology Tachycardic Lower extremity edema resolving Troponinemia peaked Elevated BNP Continue Metoprolol Succinate 25mg PO Daily Continue Apixaban 5mg PO BID Continue NS @ 125 mls/hr Dr. Gutierres Consulted, appreciate Rec's, Hold home dose Amlodipine, Avoid hydralazine and AVN blockers #Pulmonary -No acute issues -Supplemental O2 to maintain SpO2 > 90% #Gastrointestinal -abdominal pain resolved -f/u CT read #Renal -renal failure resolved -Hx of CKD -Dr. Perez consulted, appreciate rec's -Continue NS @ 125 mls/hr -Replete Lytes PRN #Endocrine Hypoglycemia resolved HHS resolved DM tx #ID Lactic acidosis resolved Febrile this morning Large nodule in R lung on abd/pelvis CT, could be PNA Continue zosyn Leukocytosis resolved Influenza negative F/U abd/pelvis CT Fluids CLD #PPx DVT: Eliquis Disposition Can transfer to telemetry Visit type - Emergency Visit Emergency Visit: No - New Patient This patient is new to me today: No - Critical Care Critical Care patient: Yes Total Critical Care Time (in minutes): 35 Critical Care Statement: The care of this patient involved high complexity decision making to prevent further life threatening deterioration of the patient 's condition and/or to evaluate & treat vital organ system(s) failure or risk of failure.
[2018-11-03] MEDS: SODIUM CHLORIDE 1,000 ML IV SCH (11:12)
--- NOTE | 2018-11-03 11:39 | PN ---
Teaching Attending Note Name of Resident: Issa Borja ATTENDING PHYSICIAN STATEMENT I saw and evaluated the patient. I reviewed the resident's note and discussed the case with the resident. I agree with the resident's findings and plan as documented. SUBJECTIVE: Patient seen and examined in the ICU. Awake and alert. Abdominal pain improved. No CP or SOB. Some dry cough. No hemoptysis. Intake & Output 10/31/18 11/01/18 11/02/18 11/03/18 23:59 23:59 23:59 23:59 Intake Total 919.2 1420 1700 Output Total 1350 Balance -430.8 1420 1700 Weight 114 lb 106 lb 6 oz 106 lb 112 lb 6.4 oz Last Vital Signs Temp Pulse Resp BP Pulse Ox 99.5 F 96 H 22 H 143/83 97 11/03/18 10:00 11/03/18 10:00 11/03/18 10:00 11/03/18 10:00 11/03/18 09:00 Active Medications Acetaminophen (Tylenol -) 650 mg PO Q6H PRN PRN Reason: FEVER Last Admin: 11/03/18 02:10 Dose: 650 mg Apixaban (Eliquis -) 5 mg PO BID [facility] Last Admin: 11/03/18 09:06 Dose: 5 mg Sodium Chloride (Normal Saline -) 1,000 mls @ 125 mls/hr IV ASDIR [facility] Last Admin: 11/03/18 11:12 Dose: 125 mls/hr Piperacillin Sod/Tazobactam (Sod 3.375 gm/ Dextrose) 50 mls @ 100 mls/hr IVPB Q8H-IV [facility]; Protocol Last Admin: 11/03/18 09:05 Dose: 100 mls/hr Potassium Phosphate 30 mm/ (Sodium Chloride) 510 mls @ 63.75 mls/hr IVPB ONCE ONE Stop: 11/03/18 19:59 Insulin Aspart (Novolog Vial Sliding Scale -) 1 vial SQ ACHS [facility]; Protocol Last Admin: 11/03/18 06:36 Dose: Not Given Valacyclovir HCl (Valtrex -) 500 mg PO BID [facility] Last Admin: 11/03/18 09:05 Dose: 500 mg Gen: Awake and alert, NAD Heart: S1S2, irregular Lung: decreased breth sounds at the bases Abd: soft, mild TTP upper quadrants, no guarding/rebound Ext: less edema PHYSICAL THERAPY ASSISTANT: Non-focal Laboratory Results - last 24 hr 11/02/18 11/02/18 11/02/18 07:45 12:10 13:30 WBC RBC Hgb Hct MCV MCH MCHC RDW Plt Count MPV Absolute Neuts (auto) Neutrophils % Lymphocytes % Monocytes % Eosinophils % Basophils % Nucleated RBC % Sodium Potassium Chloride Carbon Dioxide Anion Gap BUN Creatinine Creat Clearance w eGFR POC Glucometer Random Glucose Lactic Acid Calcium Phosphorus Magnesium Total Bilirubin AST ALT Alkaline Phosphatase Troponin I 0.25 H 0.30 H Total Protein Albumin Urine Color Yellow Urine Appearance Slcloudy Urine pH 7.0 D Ur Specific [place] 1.014 Urine Protein 2+ H Urine Glucose (UA) 2+ H Urine Ketones Negative Urine Blood Negative Urine Nitrite Positive Urine Bilirubin Negative Urine Urobilinogen Negative Ur Leukocyte Esterase Negative Urine WBC (Auto) 2 Urine RBC (Auto) 1 Urine Bacteria Few 11/02/18 11/02/18 11/02/18 15:08 16:41 20:05 WBC RBC Hgb Hct MCV MCH MCHC RDW Plt Count MPV Absolute Neuts (auto) Neutrophils % Lymphocytes % Monocytes % Eosinophils % Basophils % Nucleated RBC % Sodium Potassium Chloride Carbon Dioxide Anion Gap BUN Creatinine Creat Clearance w eGFR POC Glucometer 133 Random Glucose Lactic Acid 3.3 H* Calcium Phosphorus Magnesium Total Bilirubin AST ALT Alkaline Phosphatase Troponin I 0.30 H Total Protein Albumin Urine Color Urine Appearance Urine pH Ur Specific [place] Urine Protein Urine Glucose (UA) Urine Ketones Urine Blood Urine Nitrite Urine Bilirubin Urine Urobilinogen Ur Leukocyte Esterase Urine WBC (Auto) Urine RBC (Auto) Urine Bacteria 11/02/18 11/03/18 11/03/18 21:20 05:30 05:30 WBC 7.6 RBC 3.54 L Hgb 11.7 Hct 34.3 D MCV 96.9 H MCH 32.9 MCHC 34.0 RDW 13.5 Plt Count 108 L MPV 10.0 Absolute Neuts (auto) 6.5 Neutrophils % 85.4 H Lymphocytes % 12.0 Monocytes % 2.0 L D Eosinophils % 0.4 D Basophils % 0.2 Nucleated RBC % 0 Sodium 142 Potassium 3.3 L Chloride 102 Carbon Dioxide 36 H Anion Gap 4 L BUN 12 Creatinine 0.7 Creat Clearance w eGFR > 60 POC Glucometer 125 Random Glucose 135 H Lactic Acid Calcium 7.3 L Phosphorus 1.6 L Magnesium 1.8 Total Bilirubin 0.6 AST 57 H ALT 60 Alkaline Phosphatase 189 H Troponin I Total Protein 4.4 L Albumin 1.4 L Urine Color Urine Appearance Urine pH Ur Specific [place] Urine Protein Urine Glucose (UA) Urine Ketones Urine Blood Urine Nitrite Urine Bilirubin Urine Urobilinogen Ur Leukocyte Esterase Urine WBC (Auto) Urine RBC (Auto) Urine Bacteria 11/03/18 11/03/18 11/03/18 05:30 05:30 06:25 WBC RBC Hgb Hct MCV MCH MCHC RDW Plt Count MPV Absolute Neuts (auto) Neutrophils % Lymphocytes % Monocytes % Eosinophils % Basophils % Nucleated RBC % Sodium Potassium Chloride Carbon Dioxide Anion Gap BUN Creatinine Creat Clearance w eGFR POC Glucometer 130 Random Glucose Lactic Acid 1.4 Calcium Phosphorus Magnesium Total Bilirubin AST ALT Alkaline Phosphatase Troponin I 0.26 H Total Protein Albumin Urine Color Urine Appearance Urine pH Ur Specific [place] Urine Protein Urine Glucose (UA) Urine Ketones Urine Blood Urine Nitrite Urine Bilirubin Urine Urobilinogen Ur Leukocyte Esterase Urine WBC (Auto) Urine RBC (Auto) Urine Bacteria 11/03/18 10:46 WBC RBC Hgb Hct MCV MCH MCHC RDW Plt Count MPV Absolute Neuts (auto) Neutrophils % Lymphocytes % Monocytes % Eosinophils % Basophils % Nucleated RBC % Sodium Potassium Chloride Carbon Dioxide Anion Gap BUN Creatinine Creat Clearance w eGFR POC Glucometer 159 Random Glucose Lactic Acid Calcium Phosphorus Magnesium Total Bilirubin AST ALT Alkaline Phosphatase Troponin I Total Protein Albumin Urine Color Urine Appearance Urine pH Ur Specific [place] Urine Protein Urine Glucose (UA) Urine Ketones Urine Blood Urine Nitrite Urine Bilirubin Urine Urobilinogen Ur Leukocyte Esterase Urine WBC (Auto) Urine RBC (Auto) Urine Bacteria ASSESSMENT AND PLAN: Hyperosmolar Hyperglycemic Nonketotic State improving Severe Pulmonary HTN Previous history of Hydralazine induced lupus syndrome Paroxysmal Atrial Fibrillation with RVR Lactic Acidosis r/o Ischemic Bowel HTN CKD Asthma Previous [facility]AS ruled out Suspected RLL rounded PNA - BD TX PRN - glucose control - Check official read of CT - IVF - rate controlled - continue anticoagulation - Cardiac Telemetry monitoring - Will need outpatient follow up to document resolution of RLL process Dr Garcia
[2018-11-03] MEDS ORDERED: POTASSIUM PHOSPHATE 30 MM in SODIUM CHLORIDE 500 ML IVPB ONE (12:00)
[2018-11-03] MEDS ORDERED: INSULIN (NOVOLOG) ASPART 100 UNITS/ML 10ML VIAL ONE (17:26)
--- NOTE | 2018-11-03 19:23 | PN ---
Progress Note (short form) - Note Progress Note: 73 year old female with hstory of hypertension, type 2 diabetesmellitus, adrenal adenoma and stage 3 CKD admitted with hyperosmolar hyperglycemia and acute kidney injury. Patient has kidney biopsy diagnosed focal sclerosis. She is feeling a little bit better today. Vitals: Vital Signs (72 hours) 10/31/18 10/31/18 10/31/18 19:50 20:51 20:53 Temperature 99.2 F Pulse Rate Pulse Rate [ 83 57 L Apical] Respiratory 20 18 Rate Blood Pressure Blood Pressure 97/78 116/67 [Left Arm] O2 Sat by Pulse 100 100 100 Oximetry (%) 11/01/18 11/01/18 11/01/18 02:18 03:19 04:00 Temperature 98.4 F 98.4 F Pulse Rate 68 78 75 Pulse Rate [ 68 Apical] Respiratory 17 17 25 H Rate Blood Pressure 116/72 111/61 Blood Pressure 131/74 [Left Arm] O2 Sat by Pulse 99 99 Oximetry (%) 11/01/18 11/01/18 11/01/18 06:00 08:00 09:00 Temperature 98.2 F Pulse Rate 78 61 Pulse Rate [ Apical] Respiratory 17 28 H Rate Blood Pressure 105/86 106/56 L Blood Pressure [Left Arm] O2 Sat by Pulse 99 Oximetry (%) 11/01/18 11/01/18 11/01/18 10:00 10:45 12:00 Temperature 97.5 F L Pulse Rate 65 60 Pulse Rate [ Apical] Respiratory 17 17 Rate Blood Pressure 138/63 130/49 L Blood Pressure [Left Arm] O2 Sat by Pulse 99 Oximetry (%) 11/01/18 11/01/18 11/01/18 14:00 16:00 17:55 Temperature 97.6 F Pulse Rate 65 65 90 Pulse Rate [ Apical] Respiratory 19 20 20 Rate Blood Pressure 113/58 L 134/76 145/65 Blood Pressure [Left Arm] O2 Sat by Pulse Oximetry (%) 11/01/18 11/01/18 11/01/18 18:51 21:00 22:00 Temperature 101.7 F H 100.3 F H Pulse Rate 63 Pulse Rate [ Apical] Respiratory 20 20 Rate Blood Pressure 135/74 Blood Pressure [Left Arm] O2 Sat by Pulse 97 Oximetry (%) 02/17/19 02/17/19 02/17/19 02:00 04:50 06:22 Temperature 98.0 F 98.2 F Pulse Rate 79 112 H 116 H Pulse Rate [ Apical] Respiratory 20 20 20 Rate Blood Pressure 107/57 L 152/70 124/70 Blood Pressure [Left Arm] O2 Sat by Pulse Oximetry (%) 11/02/18 11/02/18 11/02/18 08:00 09:00 09:20 Temperature Pulse Rate 93 H 125 H Pulse Rate [ Apical] Respiratory 23 H 20 Rate Blood Pressure 137/95 137/95 Blood Pressure [Left Arm] O2 Sat by Pulse 97 Oximetry (%) 11/02/18 11/02/18 11/02/18 10:00 12:00 14:45 Temperature 100.7 F H Pulse Rate 75 79 93 H Pulse Rate [ Apical] Respiratory 23 H 23 H 26 H Rate Blood Pressure 128/73 151/68 165/74 Blood Pressure [Left Arm] O2 Sat by Pulse Oximetry (%) 11/02/18 11/02/18 11/02/18 16:00 18:26 20:00 Temperature 99.4 F Pulse Rate 90 69 78 Pulse Rate [ Apical] Respiratory 19 71 H 18 Rate Blood Pressure 124/70 131/78 130/70 Blood Pressure [Left Arm] O2 Sat by Pulse 97 Oximetry (%) 11/02/18 11/02/18 11/03/18 21:00 22:00 00:00 Temperature 99.9 F H 100.3 F H Pulse Rate 74 76 Pulse Rate [ Apical] Respiratory 18 24 H 23 H Rate Blood Pressure 144/82 129/76 Blood Pressure [Left Arm] O2 Sat by Pulse 97 Oximetry (%) 11/03/18 11/03/18 11/03/18 02:00 02:07 04:00 Temperature 101.2 F H 100.0 F H Pulse Rate 90 96 H Pulse Rate [ Apical] Respiratory 21 H 20 Rate Blood Pressure 144/79 121/63 Blood Pressure [Left Arm] O2 Sat by Pulse Oximetry (%) 11/03/18 11/03/18 11/03/18 06:00 08:00 09:00 Temperature 99 F Pulse Rate 89 96 H Pulse Rate [ Apical] Respiratory 17 21 H 21 H Rate Blood Pressure 120/77 140/84 Blood Pressure [Left Arm] O2 Sat by Pulse 97 Oximetry (%) 0211/03/18 11/03/18 10:00 12:00 14:00 Temperature 99.5 F 100.0 F H Pulse Rate 96 H 97 H 87 Pulse Rate [ Apical] Respiratory 22 H 23 H 25 H Rate Blood Pressure 143/83 147/122 H 110/71 Blood Pressure [Left Arm] O2 Sat by Pulse Oximetry (%) 11/03/18 11/03/18 16:00 18:00 Temperature 98.7 F Pulse Rate 80 74 Pulse A/P: EldeRate [ Apical] Respiratory 25 H 23 H Rate Blood Pressure 105/67 128/71 Blood Pressure [Left Arm] O2 Sat by Pulse Oximetry (%) Lungs; coarse breath sound ib the lef lower lung field Heart; s1 s2 regular Abd; Full, soft, non-tender Ext; Trace bilat ankle edema Labs: CBC, BMP 11/03/18 05:30 11/03/18 05:30 A/P: 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 Advised to call the office upon discharge for follow up. It is okay to restart ARB and monitor renal function Problem List - Problems (1) Focal sclerosis of kidney Code(s): N05.1 - UNSP NEPH SYNDROME W FOCAL AND SEGMENTAL GLOMERULAR LESIONS (2) CHF (congestive heart failure) Code(s): I50.9 - HEART FAILURE, UNSPECIFIED Qualifiers: Heart failure type: systolic Heart failure chronicity: chronic Qualified Code(s): I50.22 - Chronic systolic (congestive) heart failure (3) A-fib Code(s): I48.91 - UNSPECIFIED ATRIAL FIBRILLATION Qualifiers: Atrial fibrillation type: paroxysmal Qualified Code(s): I48.0 - Paroxysmal atrial fibrillation (4) Acute kidney injury Code(s): N17.9 - ACUTE KIDNEY FAILURE, UNSPECIFIED
[2018-11-04] MEDS: PIPERACILLIN/TAZOB 3.375 GM 3.375 GM in DEXTROSE 5%-WATER - 50 ML IVPB SCH ×3 (02:00→18:25)
[2018-11-04 05:52] LABS: HEMATOCRIT 33.8 % (32.4-45.2); HEMOGLOBIN 11.5 GM/dL (10.7-15.3); MCH 32.7 pg (25.7-33.7); MCHC 33.9 g/dl (32.0-36.0); MEAN CELL VOLUME 96.3 fl (80-96); MEAN PLT VOLUME 10.4 fl (7.5-11.1); PLATELET COUNT 116 K/MM3 (134-434); RBC 3.51 M/mm3 (3.60-5.2); RDW 13.7 % (11.6-15.6); WHITE BLOOD COUNT 6.3 K/mm3 (4.0-10.0)
[2018-11-04] MEDS: INSULIN SLIDING SCALE (NOVOLOG) 1 VIAL SQ SCH ×4 (06:00→22:08)
[2018-11-04 06:28] LABS: ANION GAP 5 MMOL/L (8-16); BLOOD UREA NITROGEN 9 mg/dL (7-18); CHLORIDE 103 mmol/L (98-107); CO2 33 mmol/L (21-32); CREATININE 0.8 mg/dL (0.55-1.3); GLUCOSE,RANDOM 138 mg/dL (74-106); POTASSIUM 3.7 mmol/L (3.5-5.1); SODIUM 142 mmol/L (136-145)
[2018-11-04 06:49] LABS: CALCIUM 6.9 mg/dL (8.5-10.1)
--- NOTE | 2018-11-04 07:04 | PN ---
Physical Exam: SUBJECTIVE: Patient seen and examined at bedside this morning. No acute overnight events. She denies acute complaints, and admits that she is hungry. Denies chest pain, palpitations, abdominal pain, nausea, vomiting. OBJECTIVE: Vital Signs Period Temp Pulse Resp BP Sys/Red Pulse Ox Last 24 Hr 97.8 F-100.0 F 74-109 18-25 105-147/67-122 97-97 GENERAL: Patient is awake, alert, and fully oriented, in no acute distress. HEAD: Normocephalic, atraumatic. EYES: Pupils equal, round and reactive to light, extraocular movements intact without nystagmus, sclera anicteric, conjunctiva clear. EARS, NOSE, THROAT: Oropharynx clear without exudates. Moist mucous membranes. NECK: Supple without lymphadenopathy or JVD. LUNGS: Breath sounds equal, without wheezing or crackles auscultated bilaterally. No accessory muscle use. HEART: Regular rate and rhythm, normal S1 and S2 without murmur, rub or gallop. ABDOMEN: Soft, nontender, not distended, normoactive bowel sounds X4 quadrants. No guarding, no rebound tenderness. MUSCULOSKELETAL: Normal range of motion at all joints. Strength 5/5 bilateral upper and lower extremities. UPPER EXTREMITIES: 2+ radial pulses bilaterally, warm, well-perfused. LOWER EXTREMITIES: 2+ dorsalis pedis pulses bilaterally, warm, well-perfused. 1 + pitting edema bilateral lower extremities PSYCHIATRIC: Cooperative. Good eye contact. Appropriate mood and affect. NEUROLOGICAL: Cranial nerves II-XII intact. Normal speech. SKIN: Warm, dry Laboratory Results - last 24 hr 11/03/18 11/03/18 11/03/18 05:30 05:30 05:30 WBC RBC Hgb Hct MCV MCH MCHC RDW Plt Count MPV Sodium 142 Potassium 3.3 L Chloride 102 Carbon Dioxide 36 H Anion Gap 4 L BUN 12 Creatinine 0.7 Creat Clearance w eGFR > 60 POC Glucometer Random Glucose 135 H Lactic Acid 1.4 Calcium 7.3 L Phosphorus 1.6 L Magnesium 1.8 Total Bilirubin 0.6 AST 57 H ALT 60 Alkaline Phosphatase 189 H Troponin I 0.26 H Total Protein 4.4 L Albumin 1.4 L Cortisol AM Sample 11/03/18 11/03/18 11/03/18 05:30 10:46 16:46 WBC RBC Hgb Hct MCV MCH MCHC RDW Plt Count MPV Sodium Potassium Chloride Carbon Dioxide Anion Gap BUN Creatinine Creat Clearance w eGFR POC Glucometer 159 219 Random Glucose Lactic Acid Calcium Phosphorus Magnesium Total Bilirubin AST ALT Alkaline Phosphatase Troponin I Total Protein Albumin Cortisol AM Sample 19.6 11/03/18 11/04/18 11/04/18 22:21 05:30 05:30 WBC 6.3 RBC 3.51 L Hgb 11.5 Hct 33.8 MCV 96.3 H MCH 32.7 MCHC 33.9 RDW 13.7 Plt Count 116 L MPV 10.4 Sodium 142 Potassium 3.7 Chloride 103 Carbon Dioxide 33 H Anion Gap 5 L BUN 9 Creatinine 0.8 Creat Clearance w eGFR > 60 POC Glucometer 154 Random Glucose 138 H Lactic Acid Calcium 6.9 L* Phosphorus Magnesium Total Bilirubin AST ALT Alkaline Phosphatase Troponin I Total Protein Albumin Cortisol AM Sample Active Medications Generic Name Dose Route Start Last Admin Trade Name Freq PRN Reason Stop Dose Admin Acetaminophen 650 mg 11/01/18 19:08 11/03/18 02:10 Tylenol - PO 650 mg Q6H PRN Administration FEVER Apixaban 5 mg 11/01/18 22:00 11/03/18 22:05 Eliquis - PO 5 mg BID ANITA Administration Sodium Chloride 1,000 mls @ 125 mls/hr 11/02/18 09:45 11/03/18 11:12 Normal Saline - IV 125 mls/hr ASDIR ANITA Administration Piperacillin Sod/Tazobactam 50 mls @ 100 mls/hr 11/02/18 12:00 11/04/18 02:00 Sod 3.375 gm/ Dextrose IVPB 100 mls/hr Q8H-IV ANITA Administration Protocol Insulin Aspart 1 vial 11/01/18 22:00 11/04/18 06:00 Novolog Vial Sliding Scale - SQ Not Given ACHS ANITA Protocol Valacyclovir HCl 500 mg 11/02/18 22:00 11/03/18 22:05 Valtrex - PO 500 mg BID ANITA Administration ASSESSMENT/PLAN: Patient is a 73 year old female with history of hypertension, hyperlipidemia, diabetes mellitus (non insulin dependent), Afib on Eliquis, CKD, admitted to ICU for hyperglycemic, hyperosmolar syndrome. Neurological -Patient is awake, alert, oriented in no acute distress -Monitor for signs of mental status change. Pulmonary -Patient is saturating 98% on 2L nasal canula. Maintain oxygen saturation greater than 90% -Right lower lobe pulmonary mass 1.7cm x1.9cm noted on CT abdomen, pelvis. Patient will require outpatient follow-up. Cardiovascular Afib -Patient is currently in sinus rhythm on cardiac monitoring. -Continue Eliquis 5mg PO BID -Rate control with Metoprolol 25mg PO daily Hypertension -Holding home antihypertensives. -Amlodipine may be contributing to lower extremity edema. Troponinemia -Troponins peaked at 0.30. Likely secondary to demand ischemia. -Cardiology consult appreciated. Endocrine HHS -resolved Diabetes Mellitus -Insulin sliding scale ACHS -Fingerstick blood glucose monitoring ACHS Renal History of CKD. -Nephrology consult appreciated. -Urine culture negative for growth ID -Patient afebrile overnight. No WBC count. Blood cultures negative, urine cultures negative. -Lactic acid peaked at 6.2. Decreased to 1.4 -ID consult appreciated -Zosyn 3.375grams IV Q8H (day #3) Musculoskeletal -Duplex bilateral lower extremities negative for DVT FEN -No IV fluids indicated. Encourage judicious oral hydration -Follow BMP -Clear liquid diet Prophylaxis -Patient is on Eliquis for Afib Disposition -Patient is medically stable for transfer to Telemetry floor. Visit type - Emergency Visit Emergency Visit: Yes ED Registration Date: 10/31/18 Care time: The patient presented to the Emergency Department on the above date and was hospitalized for further evaluation of their emergent condition. - New Patient This patient is new to me today: No - Critical Care Critical Care patient: Yes Total Critical Care Time (in minutes): 35 Critical Care Statement: The care of this patient involved high complexity decision making to prevent further life threatening deterioration of the patient 's condition and/or to evaluate & treat vital organ system(s) failure or risk of failure. - Discharge Referral Referred to [facility] No
[2018-11-04 07:48] LABS: ALBUMIN 1.4 g/dl (3.4-5.0); ALK PHOS 180 U/L (45-117); BILIRUBIN,TOTAL 0.4 mg/dL (0.2-1); SGOT/AST 42 U/L (15-37); SGPT/ALT 58 U/L (13-61); TOT PROT 4.6 g/dl (6.4-8.2)
[2018-11-04] MEDS ORDERED: PIPERACILLIN/TAZOBACTAM 3.375 GM VIAL IVPB ONE ×2 (09:51→18:25)
[2018-11-04] MEDS ORDERED: DEXTROSE 5%-WATER - 50 ML IVPB ONE ×2 (09:51→18:25)
[2018-11-04] MEDS ORDERED: PT OWN MED DRAWER 7, Y5N ONE ×2 (09:51→10:30)
[2018-11-04] MEDS: SODIUM CHLORIDE 1,000 ML IV SCH (10:13)
[2018-11-04] MEDS: valACYclovir HCL 500 MG TABLET (FP) PO SCH ×2 (10:14→22:08)
[2018-11-04] MEDS: APIXABAN 5 MG TABLET PO SCH ×2 (10:14→22:08)
--- NOTE | 2018-11-04 10:35 | PN ---
Progress Note (short form) - Note Progress Note: s: edema improved, stable sob. no chest pain, palps Current Medications Acetaminophen (Tylenol -) 650 mg PO Q6H PRN PRN Reason: FEVER Last Admin: 11/03/18 02:10 Dose: 650 mg Apixaban (Eliquis -) 5 mg PO BID [facility] Last Admin: 11/04/18 10:14 Dose: 5 mg Sodium Chloride (Normal Saline -) 1,000 mls @ 125 mls/hr IV ASDIR [facility] Last Admin: 11/04/18 10:13 Dose: 125 mls/hr Piperacillin Sod/Tazobactam (Sod 3.375 gm/ Dextrose) 50 mls @ 100 mls/hr IVPB Q8H-IV [facility]; Protocol Last Admin: 11/04/18 10:14 Dose: 100 mls/hr Insulin Aspart (Novolog Vial Sliding Scale -) 1 vial SQ ACHS [facility]; Protocol Last Admin: 11/04/18 06:00 Dose: Not Given Valacyclovir HCl (Valtrex -) 500 mg PO BID [facility] Last Admin: 11/04/18 10:14 Dose: 500 mg Vital Signs Period Temp Pulse Resp BP Sys/Red Pulse Ox Last 24 Hr 97.8 F-100.0 F 74-109 17-25 101-147/67-122 97-98 Constitutional: Yes: No Distress, Calm Eyes: No: Sclera Icterus HENT: No: Nasal Congestion Cardiovascular: Yes: Regular Rate and Rhythm, Murmur (EVY at LSB), S1, S2, Other (PMI non diplaced). No: JVD, Gallop Respiratory: Yes: CTA Bilaterally. No: Accessory Muscle Use Gastrointestinal: Yes: Normal Bowel Sounds, Soft. No: Hepatomegaly (no pulsatile liver), Tenderness Musculoskeletal: Yes: Other (No kyphosis) Extremities: No: Cold Edema: Yes (trace LEs) Integumentary: No: Jaundice Neurological: Yes: Alert, Oriented (x3) Psychiatric: No: Agitated Assessment/Plan ECG: NSR with APCs, normal intervals/axis. inc RBBB. nonsp TWAs (no change vs ) CXR: enlarged heart (unchanged vs 05/2018). clear lungs/pleura tele: NSR, APCs, one run PAT. no VT LE edema: -suspect etiology is venous insufficiency and CCB effect > right sided CHF -JV pressure appears normal, and she has had no sob or signif hypoxia -edema improving here with leg elevation -continue holding amlodipine -start SHAHID stockings - defer lasix severe pulm HTN with chronic right-sided CHF, severe TR: -etiology unknown--no signs CTEPH on V/Q, no [id number] shunt on CTA (cannot tolerate MRI-claustrophobia), no signs L sided diast CHF clinically and on stress echo. pt refused definitive assessment with RHC -BNP 800 (2K prior) -had been well-compensated and clinically euvolemic, NYHA III (1 flight of stairs) for long time -suspect edema is venous insy/ccb effect--much improved here off amlodipine with leg elevation. holding lasix -sat.s ok here, renal fxn stable, no signs hepatic congestion. do not suspect decompensated R heart failure, as disc'd above low-grade temp (100.3), lactic acidosis, abdominal pain, abnormal LFTs, low albumin (1.4): -lactate now normalized -sepsis workup thus far negative -AST/LT/alk phos bumped slightly, now trending down. RUQ sono WNL. CT abdomen done, results pending -BPs low normal to normal range, peripherally she is warm--do not suspect cardiogenic shock/low output state from RV dysfunction -not in DKA per d/w critical care -doubt sx's or LFTs are from congestive hepatopathy in light of no JVD and no appreciable hepatomeg/pulsatility on exam paroxysmal AFib, PAT: -rare episodes on event monitor and stress test -no standing AVN blockers given sinus node dysfunction on prior event monitor -given metoprolol overnight for tachy (sinus tach with runs of PAT)--no tessie -tachy likely was reactive to acute hypoglycemia--no standing AVN blockers. cont tele -continue home Eliquis (5 bid) VTach: -3 beat run on tele--resolved since -normal LFSF--low risk for malignant arrhythmia - replete K to 4, Mag to 2 DM with hyperosmolar/hyperglycemic state, no mental status changes: -given IVF overnight--per d/w critical care this will be stopped today -A1c 14 -glycemia tx per crit care HTN: -historically labile bp goes very hi when med lapses -was controlled on amlodipine, ARB long time -ARB held for ANNA--much lower potency regimen (losartan 25) resumed -BP 150s in office last week--currently controlled here -no amlodipine (edema) -no AVN blockers, including clonidine (asymptomatic SN dysfunction on event monitor--would need PPM to enable safe use this class of meds) -no hydral (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
[2018-11-04] MEDS: ACETAMINOPHEN 325 MG TABLET (FP) PO PRN (10:40)
--- NOTE | 2018-11-04 12:32 | PN ---
Teaching Attending Note Name of Resident: Vicente Cui ATTENDING PHYSICIAN STATEMENT I saw and evaluated the patient. I reviewed the resident's note and discussed the case with the resident. I agree with the resident's findings and plan as documented. SUBJECTIVE: Patient seen and examined in the ICU. Awake and alert. Abdominal pain improved, but still persistent. No CP or SOB. Some dry cough. No hemoptysis. Intake & Output 11/01/18 11/02/18 11/03/18 11/04/18 23:59 23:59 23:59 23:59 Intake Total 919.2 1420 3480 1600 Output Total 1350 Balance -430.8 1420 3480 1600 Weight 106 lb 6 oz 106 lb 112 lb 6.4 oz 113 lb 3.2 oz Last Vital Signs Temp Pulse Resp BP Pulse Ox 98.3 F 105 H 22 H 101/57 L 98 11/04/18 10:00 11/04/18 12:00 11/04/18 12:00 11/04/18 12:00 11/04/18 08:44 Active Medications Acetaminophen (Tylenol -) 650 mg PO Q6H PRN PRN Reason: FEVER Last Admin: 11/04/18 10:40 Dose: 650 mg Apixaban (Eliquis -) 5 mg PO BID [facility] Last Admin: 11/04/18 10:14 Dose: 5 mg Sodium Chloride (Normal Saline -) 1,000 mls @ 125 mls/hr IV ASDIR [facility] Last Admin: 11/04/18 10:13 Dose: 125 mls/hr Piperacillin Sod/Tazobactam (Sod 3.375 gm/ Dextrose) 50 mls @ 100 mls/hr IVPB Q8H-IV [facility]; Protocol Last Admin: 11/04/18 10:14 Dose: 100 mls/hr Insulin Aspart (Novolog Vial Sliding Scale -) 1 vial SQ ACHS [facility]; Protocol Last Admin: 11/04/18 12:10 Dose: 4 units Valacyclovir HCl (Valtrex -) 500 mg PO BID [facility] Last Admin: 11/04/18 10:14 Dose: 500 mg Gen: Awake and alert, NAD Heart: S1S2, irregular Lung: decreased breth sounds at the bases Abd: soft, mild TTP upper quadrants, no guarding/rebound Ext: less edema TRAY DELIVERY AIDE: Non-focal Laboratory Results - last 24 hr 11/03/18 11/03/18 11/03/18 05:30 16:46 22:21 WBC RBC Hgb Hct MCV MCH MCHC RDW Plt Count MPV Sodium Potassium Chloride Carbon Dioxide Anion Gap BUN Creatinine Creat Clearance w eGFR POC Glucometer 219 154 Random Glucose Calcium Total Bilirubin AST ALT Alkaline Phosphatase Total Protein Albumin Cortisol AM Sample 19.6 11/04/18 11/04/18 11/04/18 05:20 05:30 05:30 WBC 6.3 RBC 3.51 L Hgb 11.5 Hct 33.8 MCV 96.3 H MCH 32.7 MCHC 33.9 RDW 13.7 Plt Count 116 L MPV 10.4 Sodium 142 Potassium 3.7 Chloride 103 Carbon Dioxide 33 H Anion Gap 5 L BUN 9 Creatinine 0.8 Creat Clearance w eGFR > 60 POC Glucometer 145 Random Glucose 138 H Calcium 6.9 L* Total Bilirubin 0.4 AST 42 H ALT 58 Alkaline Phosphatase 180 H Total Protein 4.6 L Albumin 1.4 L Cortisol AM Sample 11/04/18 11/04/18 05:30 12:07 WBC RBC Hgb Hct MCV MCH MCHC RDW Plt Count MPV Sodium Cancelled Potassium Cancelled Chloride Cancelled Carbon Dioxide Cancelled Anion Gap Cancelled BUN Cancelled Creatinine Cancelled Creat Clearance w eGFR Cancelled POC Glucometer 234 Random Glucose Cancelled Calcium Cancelled Total Bilirubin Cancelled AST Cancelled ALT Cancelled Alkaline Phosphatase Cancelled Total Protein Cancelled Albumin Cancelled Cortisol AM Sample ASSESSMENT AND PLAN: Hyperosmolar Hyperglycemic Nonketotic State improving Severe Pulmonary HTN Previous history of Hydralazine induced lupus syndrome Paroxysmal Atrial Fibrillation with RVR Lactic Acidosis r/o Ischemic Bowel HTN CKD Asthma Previous OSAS ruled out Suspected RLL rounded PNA - BD TX PRN - glucose control - Check official read of CT - IVF - rate controlled - continue anticoagulation - Cardiac Telemetry monitoring - Will need outpatient follow up to document resolution of RLL process Dr Garcia
--- NOTE | 2018-11-04 13:48 | PN ---
Progress Note (short form) - Note Progress Note: oob in chair had abdominal distensoin that was relieved with moving her bowels liquid stools cdiff negative now feels much more comfortable Vital Signs Period Temp Pulse Resp BP Sys/Red Pulse Ox Last 24 Hr 97.8 F-100.0 F 74-109 17- 101-139/57-93 97-98 cor-rrr lungs decreased bs both bases abd soft,nt ext no edema +punched out lesions labia and perirectal area CBC, BMP 11/04/18 05:30 11/04/18 05:30 Microbiology 11/03/18 13:30 Stool Clostridium difficile Antigen (JOHN) - Final 11/03/18 13:30 Stool Clostridium difficile Toxin Assay - Final 11/01/18 22:18 Blood - Peripheral Venous Blood Culture - Preliminary NO GROWTH OBTAINED AFTER 48 HOURS, INCUBATION TO CONTINUE FOR 3 DAYS. 10/31/18 18:39 Blood - Peripheral Venous Blood Culture - Preliminary NO GROWTH OBTAINED AFTER 72 HOURS, INCUBATION TO CONTINUE FOR 2 DAYS. 10/31/18 18:15 Blood - Peripheral Venous Blood Culture - Preliminary NO GROWTH OBTAINED AFTER 72 HOURS, INCUBATION TO CONTINUE FOR 2 DAYS. 11/02/18 15:10 Blood - Peripheral Venous Blood Culture - Preliminary NO GROWTH OBTAINED AFTER 24 HOURS, INCUBATION TO CONTINUE FOR 4 DAYS. 11/02/18 15:08 Blood - Peripheral Venous Blood Culture - Preliminary NO GROWTH OBTAINED AFTER 24 HOURS, INCUBATION TO CONTINUE FOR 4 DAYS. 10/31/18 21:54 Urine - Urine Clean Catch Urine Culture - Final NO GROWTH OBTAINED Current Medications Acetaminophen (Tylenol -) 650 mg PO Q6H PRN PRN Reason: FEVER Last Admin: 11/04/18 10:40 Dose: 650 mg Apixaban (Eliquis -) 5 mg PO BID [facility] Last Admin: 11/04/18 10:14 Dose: 5 mg Sodium Chloride (Normal Saline -) 1,000 mls @ 125 mls/hr IV ASDIR [facility] Last Admin: 11/04/18 10:13 Dose: 125 mls/hr Piperacillin Sod/Tazobactam (Sod 3.375 gm/ Dextrose) 50 mls @ 100 mls/hr IVPB Q8H-IV [facility]; Protocol Last Admin: 11/04/18 10:14 Dose: 100 mls/hr Insulin Aspart (Novolog Vial Sliding Scale -) 1 vial SQ ACHS [facility]; Protocol Last Admin: 11/04/18 12:10 Dose: 4 units Valacyclovir HCl (Valtrex -) 500 mg PO BID [facility] Last Admin: 11/04/18 10:14 Dose: 500 mg a/p fevers-source unclear f/u cultures ?pneumonia continue zosyn for now temps trending down repeat cxray consider d/c antibioitics in am suspect genital hsv-po valtrex
--- NOTE | 2018-11-04 17:56 | PN ---
Physical Exam: SUBJECTIVE: Patient seen and examined at bedside. No acute events overnight. OBJECTIVE: Vital Signs Period Temp Pulse Resp BP Sys/Red Pulse Ox Last 24 Hr 97.8 F-98.7 F 74-109 17-24 97-139/57-93 97-98 GENERAL:AAOx3 NAD HEAD: Atraumatic/Normocephalic EYES: EOMI Sclera Clear ENT: MMM NECK: Supple. LUNGS: CTA B/L HEART: Irregular, S1S2 ABDOMEN: No guarding or rigidity. Soft Nondistended. EXTREMITIES: 3+ pitting edema b/l. PSYCH: Normal mood, normal affect. SKIN: Warm, dry, normal turgor, no rashes or lesions noted Laboratory Results - last 24 hr 11/03/18 11/03/18 11/04/18 05:30 22:21 05:20 WBC RBC Hgb Hct MCV MCH MCHC RDW Plt Count MPV Sodium Potassium Chloride Carbon Dioxide Anion Gap BUN Creatinine Creat Clearance w eGFR POC Glucometer 154 145 Random Glucose Calcium Total Bilirubin AST ALT Alkaline Phosphatase Total Protein Albumin Cortisol AM Sample 19.6 11/04/18 11/04/18 11/04/18 05:30 05:30 05:30 WBC 6.3 RBC 3.51 L Hgb 11.5 Hct 33.8 MCV 96.3 H MCH 32.7 MCHC 33.9 RDW 13.7 Plt Count 116 L MPV 10.4 Sodium 142 Cancelled Potassium 3.7 Cancelled Chloride 103 Cancelled Carbon Dioxide 33 H Cancelled Anion Gap 5 L Cancelled BUN 9 Cancelled Creatinine 0.8 Cancelled Creat Clearance w eGFR > 60 Cancelled POC Glucometer Random Glucose 138 H Cancelled Calcium 6.9 L* Cancelled Total Bilirubin 0.4 Cancelled AST 42 H Cancelled ALT 58 Cancelled Alkaline Phosphatase 180 H Cancelled Total Protein 4.6 L Cancelled Albumin 1.4 L Cancelled Cortisol AM Sample 11/04/18 12:07 WBC RBC Hgb Hct MCV MCH MCHC RDW Plt Count MPV Sodium Potassium Chloride Carbon Dioxide Anion Gap BUN Creatinine Creat Clearance w eGFR POC Glucometer 234 Random Glucose Calcium Total Bilirubin AST ALT Alkaline Phosphatase Total Protein Albumin Cortisol AM Sample Active Medications Generic Name Dose Route Start Last Admin Trade Name Freq PRN Reason Stop Dose Admin Acetaminophen 650 mg 11/01/18 19:08 11/04/18 10:40 Tylenol - PO 650 mg Q6H PRN Administration FEVER Apixaban 5 mg 11/01/18 22:00 11/04/18 10:14 Eliquis - PO 5 mg BID ANITA Administration Sodium Chloride 1,000 mls @ 125 mls/hr 11/02/18 09:45 11/04/18 10:13 Normal Saline - IV 125 mls/hr ASDIR ANITA Administration Piperacillin Sod/Tazobactam 50 mls @ 100 mls/hr 11/02/18 12:00 11/04/18 10:14 Sod 3.375 gm/ Dextrose IVPB 100 mls/hr Q8H-IV [facility] Administration Protocol Insulin Aspart 1 vial 11/01/18 22:00 11/04/18 12:10 Novolog Vial Sliding Scale - SQ 4 units ACHS ANITA Administration Protocol Valacyclovir HCl 500 mg 11/02/18 22:00 11/04/18 10:14 Valtrex - PO 500 mg BID ANITA Administration ASSESSMENT/PLAN: 73 y/o F with PMHx of HTN, HLD, NIDDM, Afib (on Eliquis), CKD who was admitted for [facility] and transferred to ICU after an episode of Hypoglycemia. #Right LL Pulmonary Mass/Pneumonia? (1.7cm x1.9cm noted on CT abdomen) -Oncology on board -Will require outpatient follow-up -Zosyn, I.V fluids -I.D on board. Blood/Urine cultures Negative. Chest Xray in am. # Hyperosmolar hyperglycemic state - Sliding scale with coverage. 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 #Tropenemia: Most likely 2/[address] Mcnair on board #CKD : Bun/Cr 9/0.8. 44/1.7 on admission Nephrology consulted--> Dr Perez #Atrial Fibrillation - Eliqiuis 5 mg po BID #HTN Lasix on hold -will hold amlodipine in setting of worsening LE edema -if BP rises, will start ARB With close f/u of renal fxn # Lactic acidosis -Trend #FEN: NS@125cc/hr Monitor Electrolytes Diabetic Diet DVT ppx: on eliquis Visit type - Emergency Visit Emergency Visit: Yes ED Registration Date: 10/31/18 Care time: The patient presented to the Emergency Department on the above date and was hospitalized for further evaluation of their emergent condition. - New Patient This patient is new to me today: Yes Date on this admission: 11/04/18 - Critical Care Critical Care patient: Yes Total Critical Care Time (in minutes): 35 Critical Care Statement: The care of this patient involved high complexity decision making to prevent further life threatening deterioration of the patient 's condition and/or to evaluate & treat vital organ system(s) failure or risk of failure. - Discharge Referral [facility] No
--- NOTE | 2018-11-04 19:21 | PN ---
Teaching Attending Note Name of Resident: Presley Flores ATTENDING PHYSICIAN STATEMENT I saw and evaluated the patient. I reviewed the resident's note and discussed the case with the resident. I agree with the resident's findings and plan as documented. SUBJECTIVE: Patient is doing better with no acute distress. OBJECTIVE: Vital Signs Temperature 99.0 F 11/04/18 18:00 Pulse Rate 99 H 11/04/18 18:00 Respiratory Rate 21 H 11/04/18 18:00 Blood Pressure 119/76 11/04/18 18:00 O2 Sat by Pulse Oximetry (%) 98 11/04/18 08:44 GENERAL: The patient is awake, alert, and fully oriented, in no acute distress. HEAD: Normal with no signs of trauma. EYES: PERRL, extraocular movements intact, sclera anicteric, conjunctiva clear. ENT: Ears normal, no exudates, moist mucous membranes. NECK: Trachea midline, full range of motion, supple. LUNGS: decrease Breath sounds BL, no wheezes, no crackles, no accessory muscle use. HEART: Regular rate and rhythm, S1, S2 , EVY 3/6 , no rub or gallop. ABDOMEN: Soft, nontender, nondistended, normoactive bowel sounds, no guarding, no rebound, no masses. EXTREMITIES: 2+ pulses, warm, 2 plus edema b/l. NEUROLOGICAL: Cranial nerves II through XII grossly intact. Normal speech, gait not observed. PSYCH: Normal mood, normal affect. SKIN: Warm, dry, normal turgor, no rashes or lesions noted CBCD WBC 6.3 K/mm3 (4.0-10.0) 11/04/18 05:30 RBC 3.51 M/mm3 (3.60-5.2) L 11/04/18 05:30 Hgb 11.5 GM/dL (10.7-15.3) 11/04/18 05:30 Hct 33.8 % (32.4-45.2) 11/04/18 05:30 MCV 96.3 fl (80-96) H 11/04/18 05:30 MCHC 33.9 g/dl (32.0-36.0) 11/04/18 05:30 RDW 13.7 % (11.6-15.6) 11/04/18 05:30 Plt Count 116 K/MM3 (134-434) L 11/04/18 05:30 MPV 10.4 fl (7.5-11.1) 11/04/18 05:30 CMP Sodium 142 mmol/L (136-145) 11/04/18 05:30 Potassium 3.7 mmol/L (3.5-5.1) 11/04/18 05:30 Chloride 103 mmol/L (98-107) 11/04/18 05:30 Carbon Dioxide 33 mmol/L (21-32) H 11/04/18 05:30 Anion Gap 5 MMOL/L (8-16) L 11/04/18 05:30 BUN 9 mg/dL (7-18) 11/04/18 05:30 Creatinine 0.8 mg/dL (0.55-1.3) 11/04/18 05:30 Creat Clearance w eGFR > 60 (>60) 11/04/18 05:30 Random Glucose 138 mg/dL (74-106) H 11/04/18 05:30 Calcium 6.9 mg/dL (8.5-10.1) L* 11/04/18 05:30 Total Bilirubin 0.4 mg/dL (0.2-1) 11/04/18 05:30 AST 42 U/L (15-37) H 11/04/18 05:30 ALT 58 U/L (13-61) 11/04/18 05:30 Alkaline Phosphatase 180 U/L (45-117) H 11/04/18 05:30 Total Protein 4.6 g/dl (6.4-8.2) L 11/04/18 05:30 Albumin 1.4 g/dl (3.4-5.0) L 11/04/18 05:30 CARDIAC ENZYMES Creatine Kinase 103 U/L (26-192) 11/01/18 05:25 Troponin I 0.26 ng/ml (0.00-0.05) H 11/03/18 05:30 Current Medications Generic Name Dose Route Start Last Admin Trade Name Freq PRN Reason Stop Dose Admin Acetaminophen 650 mg 11/01/18 19:08 11/04/18 10:40 Tylenol - PO 650 mg Q6H PRN Administration FEVER Apixaban 5 mg 11/01/18 22:00 11/04/18 10:14 Eliquis - PO 5 mg BID ANITA Administration Sodium Chloride 1,000 mls @ 125 mls/hr 11/02/18 09:45 11/04/18 10:13 Normal Saline - IV 125 mls/hr ASDIR ANITA Administration Piperacillin Sod/Tazobactam 50 mls @ 100 mls/hr 11/02/18 12:00 11/04/18 18:25 Sod 3.375 gm/ Dextrose IVPB 100 mls/hr Q8H-IV ANITA Administration Protocol Insulin Aspart 1 vial 11/01/18 22:00 11/04/18 18:23 Novolog Vial Sliding Scale - SQ Not Given ACHS ANITA Protocol Valacyclovir HCl 500 mg 11/02/18 22:00 11/04/18 10:14 Valtrex - PO 500 mg BID ANITA Administration Home Medications Medication Instructions Recorded Brimonidine Tartrate [Alphagan 1 drop OU BID 06/02/18 0.15% -] Lactobacillus Acidophilus [Bacid -] 1 tab PO DAILY #30 tab 06/17/18 Ferrous Sulfate [Feosol] 325 mg PO DAILY 07/15/18 Albuterol Sulfate [Proair Hfa] 8.5 gm IH DAILY 07/21/18 Apixaban [Eliquis] 5 mg PO DAILY 07/21/18 Amlodipine Besylate [Norvasc -] 10 mg PO DAILY 10/31/18 Furosemide [Lasix -] 40 mg PO DAILY 10/31/18 Atorvastatin Ca [Lipitor] 20 mg PO DAILY 11/04/18 Glimepiride 2 mg PO DAILY 11/04/18 Prednisone [Deltasone] 20 mg PO DAILY 11/04/18 CT Abdomen and Pelvis: FINDINGS: A lung mass is identified within the right lower lobe measuring 1.9 x 1.7 cm. Metastatic disease or primary disease suspected. Visualized portions of the lower lobes pulmonary arteries reveal no intraluminal filling defect. The heart is enlarged. The abdominal aorta is patent. No aneurysmal disease noted. Calcified plaque present. Moderate to severe disease of the takeoff of the celiac artery is noted. SMA is widely patent with no intraluminal filling defects or dissection seen. No ostial lesions seen. Single renal arteries noted. The DIONNE is patent. Iliofemoral systems are patent. The liver is homogeneous. Portal vein is patent. No gallstones seen. Bile ducts are not dilated. The pancreas, spleen, and adrenals appear unremarkable. The kidneys enhance symmetrically. Multiple parenchymal cyst noted with the largest within the left kidney measuring 2.4 cm. Correlation with ultrasound recommended. No retroperitoneal adenopathy is present. Hiatal hernia is present. Edema of the gastric wall is present. A the stomach is empty. Oral contrast reaches the colon. There is no evidence of obstruction. The appendix was visualized. The tip of the appendix is hyperemic measuring 7.5 mm. It is air-filled. There is moderate stool. Diverticulosis with no evidence to suggest acute diverticulitis. No free air is present. There is evidence of ascites. Volume is small. No mesenteric implants were identified. Air within the bladder noted, correlate with prior instrumentation. The uterus was identified. A fundal fibroid is suspected. Extensive osteoarthritic changes are present of the right hip joint. Degenerative changes are present of the lumbar spine. Demineralization. Preliminary dictation was generated by the on-call radiologist at the time of this procedure. IMPRESSION: Hypervascular mass within the right lower lobe suggesting primary or metastatic disease to the lung. Cardiomegaly. Small ascites. Multiple low-density lesions within the kidneys likely represent cysts, correlate with ultrasound. 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 Gastric edema which could be inflammatory/infectious in nature. No mural gas was seen. No pneumatosis. No evidence of bowel obstruction. There is thickening of the tip of the appendix which could represent a mass, residual contrast from prior CT not excluded. Findings not seen on prior CT. Constipation. Diverticulosis with no evidence to suggest acute diverticulitis. Extensive osteoarthritic changes of the right hip as described above. Findings were noted on prior CT. Additional comments noted above. Reported By: Julian Coats MD 11/03/18 [id number] ASSESSMENT AND PLAN: Patient is a 73yo female with PMHx of pulmonary HTN, A-fib (on eliquis), CHF, DM presents to the ER for progressively worsening LE edema over the last 2-3 weeks. Found to have elevated glucose and in hyperosmolar hyperglycemic state. # Possible Pneumonia with Right lower lobe mass with possible metastatic disease or primary disease suspected: On Zosyn IV continue, will get oncology consult. # Hyperosmolar hyperglycemic state with sliding scale with coverage. Stable #Worsening LE edema: Hold of Amlodipine. #Elevated trops: No signs of ACS, most likely due to demand ischemia. cardiology consult dr appreciated. # severe pulm HTN with chronic right-sided CHF, severe TR: No sign of CHF clinically #CKD :stable nephro consult appreciated #P-Afib with rate controlled on Eliqiuis with dose adjusted according to kidney function. #HTN on Lasix will hold amlodipine in setting of worsening LE edema # Lactic acidosis monitor Lactic acid. #Electrolyte imbalance DVT ppx: on eliquis
[2018-11-05] MEDS ORDERED: PIPERACILLIN/TAZOBACTAM 3.375 GM VIAL IVPB ONE ×3 (00:50→17:02)
[2018-11-05] MEDS ORDERED: DEXTROSE 5%-WATER - 50 ML IVPB ONE ×3 (00:51→17:02)
[2018-11-05] MEDS: PIPERACILLIN/TAZOB 3.375 GM 3.375 GM in DEXTROSE 5%-WATER - 50 ML IVPB SCH ×3 (02:10→17:24)
[2018-11-05] MEDS: INSULIN SLIDING SCALE (NOVOLOG) 1 VIAL SQ SCH ×2 (06:24→17:25)
[2018-11-05 07:21] LABS: HEMATOCRIT 30.5 % (32.4-45.2); HEMOGLOBIN 10.4 GM/dL (10.7-15.3); MCHC 34.2 g/dl (32.0-36.0); MEAN CELL VOLUME 96.6 fl (80-96); MEAN PLT VOLUME 10.6 fl (7.5-11.1); PLATELET COUNT 128 K/MM3 (134-434); RBC 3.16 M/mm3 (3.60-5.2); RDW 13.6 % (11.6-15.6); WHITE BLOOD COUNT 6.6 K/mm3 (4.0-10.0)
[2018-11-05 08:06] LABS: ALBUMIN 1.3 g/dl (3.4-5.0); ALK PHOS 176 U/L (45-117); ANION GAP 4 MMOL/L (8-16); BILIRUBIN,TOTAL 0.3 mg/dL (0.2-1); BLOOD UREA NITROGEN 9 mg/dL (7-18); CHLORIDE 107 mmol/L (98-107); CO2 30 mmol/L (21-32); CREATININE 0.6 mg/dL (0.55-1.3); GLUCOSE,RANDOM 65 mg/dL (74-106); MAGNESIUM 1.5 mg/dL (1.8-2.4); PHOSPHOROUS 1.6 mg/dL (2.5-4.9); POTASSIUM 3.5 mmol/L (3.5-5.1); SGOT/AST 39 U/L (15-37); SGPT/ALT 53 U/L (13-61); SODIUM 141 mmol/L (136-145); TOT PROT 4.5 g/dl (6.4-8.2)
[2018-11-05] MEDS ORDERED: ACETAMINOPHEN 325 MG TABLET (FP) PO PRN (08:06)
[2018-11-05 08:16] LABS: CALCIUM 6.9 mg/dL (8.5-10.1)
[2018-11-05] MEDS ORDERED: MAGNESIUM SULF 50% (8.12 MEQ/2 ML-1 GM VIAL) IVPB ONE (09:30)
[2018-11-05] MEDS ORDERED: NAPH,MB-DB/K PH,MBDB POWDER PACKET PO ONE (09:30)
[2018-11-05] MEDS: SODIUM CHLORIDE 1,000 ML IV SCH ×2 (09:56→13:38)
[2018-11-05] MEDS: valACYclovir HCL 500 MG TABLET (FP) PO SCH ×2 (09:57→22:01)
[2018-11-05] MEDS: APIXABAN 5 MG TABLET PO SCH ×2 (09:58→22:01)
--- NOTE | 2018-11-05 10:24 | PN ---
Progress Note, Physician History of Present Illness: pulmonary alert,dyspneic with min exertion,+ dry cough - Current Medication List Current Medications: Active Medications Acetaminophen (Tylenol -) 650 mg PO Q6H PRN PRN Reason: FEVER Apixaban (Eliquis -) 5 mg PO BID [facility] Last Admin: 11/05/18 09:58 Dose: 5 mg Sodium Chloride (Normal Saline -) 1,000 mls @ 125 mls/hr IV ASDIR [facility] Last Admin: 11/05/18 09:56 Dose: 125 mls/hr Piperacillin Sod/Tazobactam (Sod 3.375 gm/ Dextrose) 50 mls @ 100 mls/hr IVPB Q8H-IV ANITA; Protocol Piperacillin Sod/Tazobactam (Sod 3.375 gm/ Dextrose) 50 mls @ 100 mls/hr IVPB Q8H-IV ANITA; Protocol Stop: 11/06/18 09:59 Last Admin: 11/05/18 09:58 Dose: 100 mls/hr Insulin Aspart (Novolog Vial Sliding Scale -) 1 vial SQ ACHS [facility]; Protocol Valacyclovir HCl (Valtrex -) 500 mg PO BID [facility] Last Admin: 11/05/18 09:57 Dose: 500 mg - Objective Vital Signs: Vital Signs Temperature 99.0 F 11/05/18 05:00 Pulse Rate 90 11/05/18 05:00 Respiratory Rate 20 11/05/18 05:00 Blood Pressure 132/78 11/05/18 05:00 O2 Sat by Pulse Oximetry (%) 97 11/04/18 21:12 Constitutional: Yes: Well Nourished, Calm Eyes: Yes: WNL HENT: Yes: WNL Neck: Yes: WNL Cardiovascular: Yes: Pulse Irregular, S1, S2 Respiratory: Yes: Rales (bibasilar rales) Gastrointestinal: Yes: Normal Bowel Sounds, Soft Extremities: Yes: WNL Edema: Yes Labs: CBC, BMP 11/05/18 05:30 11/05/18 05:30 INR, PTT INR 0.98 (0.83-1.09) 10/31/18 18:39 Problem List - Problems (1) CHF (congestive heart failure) Code(s): I50.9 - HEART FAILURE, UNSPECIFIED Qualifiers: Heart failure type: systolic Heart failure chronicity: chronic Qualified Code(s): I50.22 - Chronic systolic (congestive) heart failure (2) Drug-induced lupus erythematosus Code(s): L93.2 - OTHER LOCAL LUPUS ERYTHEMATOSUS; T50.905A - ADVERSE EFFECT OF UNSP DRUG/MEDS/BIOL SUBST, INIT (3) Elevated lactic acid level Code(s): R79.89 - OTHER SPECIFIED ABNORMAL FINDINGS OF BLOOD CHEMISTRY (4) Hyperglycemic hyperosmolar nonketotic coma Code(s): E11.01 - TYPE 2 DIABETES MELLITUS WITH HYPEROSMOLARITY WITH COMA (5) A-fib Code(s): I48.91 - UNSPECIFIED ATRIAL FIBRILLATION Qualifiers: Atrial fibrillation type: paroxysmal Qualified Code(s): I48.0 - Paroxysmal atrial fibrillation (6) HTN (hypertension) Code(s): I10 - ESSENTIAL (PRIMARY) HYPERTENSION Qualifiers: Hypertension type: essential hypertension Qualified Code(s): I10 - Essential (primary) hypertension (7) Lung mass Code(s): R91.8 - OTHER NONSPECIFIC ABNORMAL FINDING OF LUNG FIELD (8) Pulmonary HTN Code(s): I27.20 - PULMONARY HYPERTENSION, UNSPECIFIED Assessment/Plan ASSESSMENT AND PLAN: Hyperosmolar Hyperglycemic Nonketotic State improved Severe Pulmonary HTN Previous history of Hydralazine induced lupus syndrome Paroxysmal Atrial Fibrillation with RVR Lactic Acidosis r/o Ischemic Bowel HTN CKD Asthma Previous [facility] ruled out RLL rounded mass ?PNA ,? maligant - BD TX PRN - glucose control - rate controlled - continue anticoagulation - Will need outpatient follow up to document resolution of RLL process ,if no change PET SCAN DR LANCE
[2018-11-05] MEDS ORDERED: INSULIN SLIDING SCALE (NOVOLOG) 1 VIAL SQ SCH ×2 (11:00→14:00)
--- NOTE | 2018-11-05 11:13 | PN ---
Progress Note (short form) - Note Progress Note: s: stable sob, edema. no chest pain, palps Current Medications Acetaminophen (Tylenol -) 650 mg PO Q6H PRN PRN Reason: FEVER Apixaban (Eliquis -) 5 mg PO BID [facility] Last Admin: 11/05/18 09:58 Dose: 5 mg Sodium Chloride (Normal Saline -) 1,000 mls @ 125 mls/hr IV ASDIR [facility] Last Admin: 11/05/18 09:56 Dose: 125 mls/hr Piperacillin Sod/Tazobactam (Sod 3.375 gm/ Dextrose) 50 mls @ 100 mls/hr IVPB Q8H-IV [facility]ITA; Protocol Piperacillin Sod/Tazobactam (Sod 3.375 gm/ Dextrose) 50 mls @ 100 mls/hr IVPB Q8H-IV ANITA; Protocol Stop: 11/06/18 09:59 Last Admin: 11/05/18 09:58 Dose: 100 mls/hr Insulin Aspart (Novolog Vial Sliding Scale -) 1 vial SQ ACHS [facility]; Protocol Valacyclovir HCl (Valtrex -) 500 mg PO BID [facility] Last Admin: 11/05/18 09:57 Dose: 500 mg Vital Signs Period Temp Pulse Resp BP Sys/Red Pulse Ox Last 24 Hr 98.5 F-99.0 F 80-105 19-24 97-138/57-88 97-97 Constitutional: Yes: No Distress, Calm Eyes: No: Sclera Icterus HENT: No: Nasal Congestion Cardiovascular: Yes: Regular Rate and Rhythm, Murmur (EVY at LSB), S1, S2, Other (PMI non diplaced). No: JVD, Gallop Respiratory: Yes: CTA Bilaterally. No: Accessory Muscle Use Gastrointestinal: Yes: Normal Bowel Sounds, Soft. No: Hepatomegaly (no pulsatile liver), Tenderness Musculoskeletal: Yes: Other (No kyphosis) Extremities: No: Cold Edema: Yes (trace LEs) Integumentary: No: Jaundice Neurological: Yes: Alert, Oriented (x3) Psychiatric: No: Agitated Assessment/Plan ECG: NSR with APCs, normal intervals/axis. inc RBBB. nonsp TWAs (no change vs ) CXR: enlarged heart (unchanged vs 05/2018). clear lungs/pleura tele: NSR, APCs LE edema: -suspect etiology is venous insufficiency and CCB effect > right sided CHF -JV pressure appears normal, and she has had no sob or signif hypoxia -edema improving here with leg elevation -continue holding amlodipine -start SHAHID stockings - defer lasix severe pulm HTN with chronic right-sided CHF, severe TR: -etiology unknown--no signs CTEPH on V/Q, no [id number] shunt on CTA (cannot tolerate MRI-claustrophobia), no signs L sided diast CHF clinically and on stress echo. pt refused definitive assessment with RHC -BNP 800 (2K prior) -had been well-compensated and clinically euvolemic, NYHA III (1 flight of stairs) for long time -suspect edema is venous insy/ccb effect--much improved here off amlodipine with leg elevation. holding lasix -sat.s ok here, renal fxn stable, no signs hepatic congestion. do not suspect decompensated R heart failure, as disc'd above low-grade temp (100.3), lactic acidosis, abdominal pain, abnormal LFTs, low albumin (1.4): -lactate now normalized -sepsis workup thus far negative -AST/LT/alk phos trending down - BP stable -doubt sx's or LFTs are from congestive hepatopathy in light of no JVD and no appreciable hepatomeg/pulsatility on exam paroxysmal AFib, PAT: -rare episodes on event monitor and stress test -no standing AVN blockers given sinus node dysfunction on prior event monitor -given metoprolol overnight for sinus tach with runs of PAT --no tessie -no standing AVN blockers. cont tele, rate stable -continue home Eliquis (5 bid) VTach: -3 beat run on tele--resolved since -normal LVSF--low risk for malignant arrhythmia - replete K to 4, Mag to 2 DM with hyperosmolar/hyperglycemic state, no mental status changes: -A1c 14 -glycemia tx per primary HTN: -historically labile bp goes very hi when med lapses -was controlled on amlodipine, ARB long time -ARB held for ANNA--much lower potency regimen (losartan 25) resumed -BP 150s in office last week--currently controlled here -no amlodipine (edema) -no AVN blockers, including clonidine (asymptomatic SN dysfunction on event monitor--would need PPM to enable safe use this class of meds) -no hydral (prior positive anti-histone Ab/? drug induced SLE) -prefer to defer thiazide for now, given prior atypical creatinine behavior ( ditto for spironolactone) -observe BP trend--if rises, will start ARB With close f/u of renal fxn asthma: -per hospitalist
--- NOTE | 2018-11-05 14:38 | CONSULT ---
Consultation: REQUESTING PROVIDER: Dr. Hayes CONSULT REQUEST: We have been asked to medically evaluate this patient for possible lung mass HISTORY OF PRESENT ILLNESS: This is a 73 year old female with a history of Focal segmental glomerlosclerosis , CKD, HTN, severe pulmonary htn, paroxysmal atrial fibrillation, asthma, recent multilobar pneumonia, who presents with hyperglycemia, found to be in hyperosmolar hyperglycemic non ketotic state. We were called to evaluate a hypervascular mass in the right lower lobe seen on am abdominal CT done on admission. Prior chest imaging done on 06/02/18. Patient admits to 10lbs wt loss in the past 3 months; denies, n, v, d, melena, cp, sob/ Admits to productive cough "bloody sputum". Social history: denies smoking/alcohol/illicit drug use; does states her neighbor smoke and has to inhale second hand smoke for years. Denies chemical toxins REVIEW OF SYSTEMS: CONSTITUTIONAL: Absent: fever, chills, diaphoresis, generalized weakness, malaise, loss of appetite, weight change HEENT: Absent: rhinorrhea, nasal congestion, throat pain, throat swelling, difficulty swallowing, mouth swelling, ear pain, eye pain, visual changes CARDIOVASCULAR: Positive: peripheral edema Absent: chest pain, syncope, palpitations, irregular heart rate, lightheadedness , RESPIRATORY: Positive: cough, shortness of breath, dyspnea with exertion ,hemoptysis Absent: ,orthopnea, wheezing, stridor, GASTROINTESTINAL: Absent: abdominal pain, abdominal distension, nausea, vomiting, diarrhea, constipation, melena, hematochezia GENITOURINARY: Absent: dysuria, frequency, urgency, hesitancy, hematuria, flank pain, genital pain MUSCULOSKELETAL: Absent: myalgia, arthralgia, joint swelling, back pain, neck pain SKIN: Absent: rash, itching, pallor HEMATOLOGIC/IMMUNOLOGIC: Absent: easy bleeding, easy bruising, lymphadenopathy, frequent infections ENDOCRINE: Absent: unexplained weight gain, unexplained weight loss, heat intolerance, cold intolerance NEUROLOGIC: Absent: headache, focal weakness or paresthesias, dizziness, unsteady gait, seizure, mental status changes, bladder or bowel incontinence PSYCHIATRIC: Absent: anxiety, depression, suicidal or homicidal ideation, hallucinations. PHYSICAL EXAMINATION Vital Signs - 24 hr 11/04/18 11/04/18 11/04/18 16:00 18:00 21:00 Temperature 99.0 F Pulse Rate 86 99 H Respiratory 19 21 H 20 Rate Blood Pressure 100/66 119/76 O2 Sat by Pulse 97 Oximetry (%) 11/04/18 11/04/18 11/05/18 21:12 22:00 01:42 Temperature 98.5 F 98.6 F Pulse Rate 85 80 Respiratory 20 20 Rate Blood Pressure 138/72 137/88 O2 Sat by Pulse 97 Oximetry (%) 11/05/18 11/05/18 11/05/18 05:00 09:00 10:00 Temperature 99.0 F 98.8 F Pulse Rate 90 113 H Respiratory 20 20 Rate Blood Pressure 132/78 122/55 L O2 Sat by Pulse 97 Oximetry (%) GENERAL: Awake, alert, and fully oriented, in no acute distress. HEAD: Normal with no signs of trauma. EYES: Pupils equal, round and reactive to light, extraocular movements intact, sclera anicteric, conjunctiva clear. No lid lag. EARS, NOSE, THROAT: Ears normal, nares patent, oropharynx clear without exudates. Moist mucous membranes. NECK: Normal range of motion, supple without lymphadenopathy, JVD, or masses. LUNGS: bilateral scattered rhonchi; congestion HEART: Regular rate and rhythm, normal S1 and S2 without murmur, rub or gallop. Breast/axilla; negative for masses/lumps/nipple discharge ABDOMEN: Soft, nontender, not distended, normoactive bowel sounds, no guarding, no rebound, no masses. No hepatomegaly or splenomegaly. MUSCULOSKELETAL: Normal range of motion at all joints. No bony deformities or tenderness. No CVA tenderness. UPPER EXTREMITIES: 2+ pulses, warm, well-perfused. No cyanosis. No clubbing. Cap refill <2 seconds. No peripheral edema. LOWER EXTREMITIES: 2+ pulses, warm, well-perfused. No calf tenderness. No peripheral edema. NEUROLOGICAL: Cranial nerves II-XII intact. Normal speech. PSYCHIATRIC: Cooperative. Good eye contact. Appropriate mood and affect. SKIN: Warm, dry, normal turgor, no rashes or lesions noted. Laboratory Results - last 24 hr 11/04/18 11/04/18 11/05/18 18:22 21:37 05:24 WBC RBC Hgb Hct MCV MCH MCHC RDW Plt Count MPV Sodium Potassium Chloride Carbon Dioxide Anion Gap BUN Creatinine Creat Clearance w eGFR POC Glucometer 126 245 82 Random Glucose Calcium Phosphorus Magnesium Total Bilirubin AST ALT Alkaline Phosphatase Total Protein Albumin 11/05/18 11/05/18 11/05/18 05:30 05:30 11:14 WBC 6.6 RBC 3.16 L Hgb 10.4 L Hct 30.5 L MCV 96.6 H MCH 33.0 MCHC 34.2 RDW 13.6 Plt Count 128 L MPV 10.6 Sodium 141 Potassium 3.5 Chloride 107 Carbon Dioxide 30 Anion Gap 4 L BUN 9 Creatinine 0.6 Creat Clearance w eGFR > 60 POC Glucometer 175 Random Glucose 65 L Calcium 6.9 L* Phosphorus 1.6 L Magnesium 1.5 L Total Bilirubin 0.3 AST 39 H ALT 53 Alkaline Phosphatase 176 H Total Protein 4.5 L Albumin 1.3 L Active Medications Generic Name Dose Route Start Last Admin Trade Name Freq PRN Reason Stop Dose Admin Acetaminophen 650 mg 11/05/18 08:06 Tylenol - PO Q6H PRN FEVER Apixaban 5 mg 11/05/18 10:00 11/05/18 09:58 Eliquis - PO 5 mg BID ANITA Administration Sodium Chloride 1,000 mls @ 125 mls/hr 11/05/18 08:06 11/05/18 13:38 Normal Saline - IV 125 mls/hr ASDIR ANITA Administration Piperacillin Sod/Tazobactam 50 mls @ 100 mls/hr 11/05/18 10:00 Sod 3.375 gm/ Dextrose IVPB Q8H-IV ANITA Protocol Piperacillin Sod/Tazobactam 50 mls @ 100 mls/hr 11/05/18 10:00 11/05/18 09:58 Sod 3.375 gm/ Dextrose IVPB 11/06/18 09:59 100 mls/hr Q8H-IV ANITA Administration Protocol Insulin Aspart 1 vial 11/05/18 16:30 Novolog Vial Sliding Scale - SQ TIDAC ANITA Protocol Valacyclovir HCl 500 mg 11/05/18 10:00 11/05/18 09:57 Valtrex - PO 500 mg BID ANITA Administration ASSESSMENT/PLAN: This is a 73 year old female with a history of Focal segmental glomerlosclerosis , CKD, HTN, severe pulmonary htn, paroxysmal atrial fibrillation, asthma, recent multilobar pneumonia, who presents with hyperglycemia, found to be in hyperosmolar hyperglycemic non ketotic state. We were called to evaluate a hypervascular mass in the right lower lobe seen on an abdominal CT. Suspicious RLL hypervascular mass; seen on abdominal CT microcytic anemia dilated appendix on abdomen/pelvis; may be secondary to contrast; would repeat ct -could be possibly due to previous pna; after infectious process clears; get PET CT -non contrast chest CT to eval lungs gamboa; -anemia work up ; cbc with diff, ldh, fobt, retic count; hemoglobin electrophoresis; esr Dispo: We will continue to follow the patient. Thank you for this consultative opportunity. Visit type - Emergency Visit Emergency Visit: Yes ED Registration Date: 10/31/18 Care time: The patient presented to the Emergency Department on the above date and was hospitalized for further evaluation of their emergent condition. - New Patient This patient is new to me today: Yes Date on this admission: 11/05/18 - Critical Care Critical Care patient: No
--- NOTE | 2018-11-05 15:11 | PN ---
Progress Note (short form) - Note Progress Note: feels well no ocmplaints chest ct results pending Vital Signs Period Temp Pulse Resp BP Sys/Red Pulse Ox Last 24 Hr 98.5 F-99.0 F 80-113 19-21 100-138/55-88 97-97 cor-rrr llungs decreased bsa t bases abd soft,nt ext no edema CBC, BMP 11/05/18 05:30 11/05/18 05:30 Microbiology 11/01/18 22:18 Blood - Peripheral Venous Blood Culture - Preliminary NO GROWTH OBTAINED AFTER 72 HOURS, INCUBATION TO CONTINUE FOR 2 DAYS. 10/31/18 18:39 Blood - Peripheral Venous Blood Culture - Preliminary NO GROWTH OBTAINED AFTER 96 HOURS, INCUBATION TO CONTINUE FOR 1 DAYS. 10/31/18 18:15 Blood - Peripheral Venous Blood Culture - Preliminary NO GROWTH OBTAINED AFTER 96 HOURS, INCUBATION TO CONTINUE FOR 1 DAYS. 11/02/18 15:10 Blood - Peripheral Venous Blood Culture - Preliminary NO GROWTH OBTAINED AFTER 48 HOURS, INCUBATION TO CONTINUE FOR 3 DAYS. 11/02/18 15:08 Blood - Peripheral Venous Blood Culture - Preliminary NO GROWTH OBTAINED AFTER 48 HOURS, INCUBATION TO CONTINUE FOR 3 DAYS. 11/03/18 13:30 Stool Clostridium difficile Antigen (JOHN) - Final 11/03/18 13:30 Stool Clostridium difficile Toxin Assay - Final 10/31/18 21:54 Urine - Urine Clean Catch Urine Culture - Final NO GROWTH OBTAINED Current Medications Acetaminophen (Tylenol -) 650 mg PO Q6H PRN PRN Reason: FEVER Apixaban (Eliquis -) 5 mg PO BID ANITA Last Admin: 11/05/18 09:58 Dose: 5 mg Sodium Chloride (Normal Saline -) 1,000 mls @ 125 mls/hr IV ASDIR ANITA Last Admin: 11/05/18 13:38 Dose: 125 mls/hr Piperacillin Sod/Tazobactam (Sod 3.375 gm/ Dextrose) 50 mls @ 100 mls/hr IVPB Q8H-IV ANITA; Protocol Piperacillin Sod/Tazobactam (Sod 3.375 gm/ Dextrose) 50 mls @ 100 mls/hr IVPB Q8H-IV ANITA; Protocol Stop: 11/06/18 09:59 Last Admin: 11/05/18 09:58 Dose: 100 mls/hr Insulin Aspart (Novolog Vial Sliding Scale -) 1 vial SQ TIDAC [facility]; Protocol Valacyclovir HCl (Valtrex -) 500 mg PO BID [facility] Last Admin: 11/05/18 09:57 Dose: 500 mg a/p fevers-resolved ?pneumonia chest ct pending continue zosyn for now suspect genital hsv-po valtrex
--- NOTE | 2018-11-05 15:57 | PN ---
Physical Exam: SUBJECTIVE: Patient seen and examined at bedside. Endorses coughing up blood sputum this am. Denies chest pain, abdominal pain, or shortness of breath. OBJECTIVE: Vital Signs Period Temp Pulse Resp BP Sys/Red Pulse Ox Last 24 Hr 98.0 F-99.0 F 80-113 19-21 100-139/55-88 97-97 GENERAL:AAOx3 NAD HEAD: Atraumatic/Normocephalic EYES: EOMI Sclera Clear ENT: MMM NECK: Supple. LUNGS: Bibasilar Rales HEART: Irregular, S1S2 ABDOMEN: No guarding or rigidity. Soft Nondistended. EXTREMITIES: 3+ pitting edema b/l. PSYCH: Normal mood, normal affect. SKIN: Warm, dry, normal turgor, no rashes or lesions noted Laboratory Results - last 24 hr 11/04/18 11/04/18 11/05/18 18:22 21:37 05:24 WBC RBC Hgb Hct MCV MCH MCHC RDW Plt Count MPV Sodium Potassium Chloride Carbon Dioxide Anion Gap BUN Creatinine Creat Clearance w eGFR POC Glucometer 126 245 82 Random Glucose Calcium Phosphorus Magnesium Total Bilirubin AST ALT Alkaline Phosphatase Total Protein Albumin 11/05/18 11/05/18 11/05/18 05:30 05:30 11:14 WBC 6.6 RBC 3.16 L Hgb 10.4 L Hct 30.5 L MCV 96.6 H MCH 33.0 MCHC 34.2 RDW 13.6 Plt Count 128 L MPV 10.6 Sodium 141 Potassium 3.5 Chloride 107 Carbon Dioxide 30 Anion Gap 4 L BUN 9 Creatinine 0.6 Creat Clearance w eGFR > 60 POC Glucometer 175 Random Glucose 65 L Calcium 6.9 L* Phosphorus 1.6 L Magnesium 1.5 L Total Bilirubin 0.3 AST 39 H ALT 53 Alkaline Phosphatase 176 H Total Protein 4.5 L Albumin 1.3 L Active Medications Generic Name Dose Route Start Last Admin Trade Name Freq PRN Reason Stop Dose Admin Acetaminophen 650 mg 11/05/18 08:06 Tylenol - PO Q6H PRN FEVER Apixaban 5 mg 11/05/18 10:00 11/05/18 09:58 Eliquis - PO 5 mg BID ANITA Administration Piperacillin Sod/Tazobactam 50 mls @ 100 mls/hr 11/05/18 10:00 Sod 3.375 gm/ Dextrose IVPB Q8H-IV ANITA Protocol Piperacillin Sod/Tazobactam 50 mls @ 100 mls/hr 11/05/18 10:00 11/05/18 09:58 Sod 3.375 gm/ Dextrose IVPB 11/06/18 09:59 100 mls/hr Q8H-IV ANITA Administration Protocol Insulin Aspart 1 vial 11/05/18 16:30 Novolog Vial Sliding Scale - SQ TIDAC ANITA Protocol Valacyclovir HCl 500 mg 11/05/18 10:00 11/05/18 09:57 Valtrex - PO 500 mg BID ANITA Administration ASSESSMENT/PLAN: 73 y/o F with PMHx of HTN, HLD, NIDDM, Afib (on Eliquis), CKD who was admitted for [facility] and transferred to ICU after an episode of Hypoglycemia. #Right LL Pulmonary Mass/Pneumonia? (1.7cm x1.9cm noted on CT abdomen) -Oncology on board---> Dr Clayton/Dr Wild---> get PET CT, non contrast chest CT to eval lungs gamboa, anemia work up, cbc with diff, ldh, fobt, retic count , hemoglobin electrophoresis, and esr. -Will require outpatient follow-up -Zosyn, I.V fluids -I.D on board. Blood/Urine cultures Negative. Chest Xray in am. # Hyperosmolar hyperglycemic state - Will recheck BGM in am. If >100, will start 5 U Lantus. 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 CTAP--> Gastric Edema. May be infectious/inflammatory. #Worsening LE edema: Hold of Amlodipine. #Tropenemia: Most likely 2/[address] Mcnair on board #CKD : Bun/Cr 9/0.8. 44/1.7 on admission Nephrology consulted--> Dr Perez #Atrial Fibrillation - Eliqiuis 5 mg po BID #HTN Lasix on hold -will hold amlodipine in setting of worsening LE edema -if BP rises, will start ARB With close f/u of renal fxn # Lactic acidosis -Trend #FEN: NS@125cc/hr Monitor Electrolytes Diabetic Diet DVT ppx: on eliquis Visit type - Emergency Visit Emergency Visit: Yes ED Registration Date: 10/31/18 Care time: The patient presented to the Emergency Department on the above date and was hospitalized for further evaluation of their emergent condition. - New Patient This patient is new to me today: No - Critical Care Critical Care patient: No - Discharge Referral Referred to [facility] Med P.C.: No
--- NOTE | 2018-11-05 18:21 | PN ---
Teaching Attending Note Name of Resident: Collins Monroe ATTENDING PHYSICIAN STATEMENT I saw and evaluated the patient. I reviewed the resident's note and discussed the case with the resident. I agree with the resident's findings and plan as documented. SUBJECTIVE: No fever or chills . No abd pain , no N/V. has no PC . denies palpitations and feels better . reports being on prediosne bid at home OBJECTIVE: NA d, cooperative CV: RRR, no MRG Lungs: CTAB Abd: soft, Nt, Nd, NL BS. Ext : no 1+ edema both legs ASSESSMENT AND PLAN: 73yo female with PMHx of pulmonary HTN, R sided heart failure, P a fib,severe TR, A-fib (on eliquis), sinus node dysfunciton , Hydralazine induced lupus, DM , pulm HTn, nephrotic syndrome due to focal glmerulosclerosis, who presented with worsening LE edema and was found to have HHS. 1- HHS: resolved. now occasionally hypoglycemic in am - hold HS SSI . cont TIDAC - try to add low dose am levemir tomorrow 2- Possible PNA, with R LL mass, and multiple other lung nodules . - cont cabx - need further w/u for those nodules, Mets vs. primary. ? PET scan 3- Appendix mass: etiology is not clear. ? cancer - Sx consult - GI c/s, ? colo 4- Sepsis at presentation , ? pna vs GI process. has gastric wall edema on Abd CT . Now asymptomatic and lactic resolved. - cont zosyn - ? EGD 6- A fib: cont eliquis. No AV bushra blockers due to possible SSS 7- LE edema , likely due to Norvasc. less likely due to heart failure . appreciate card input - Norvasc on hold 8- HTN: BP nl off Norvasc. can't use BB/CCB, hydralazine and try to avoid HCTZ. 9- H/o COPD: resume her chronic prednisone HLOC
--- NOTE | 2018-11-05 20:33 | CONSULT ---
Consult Consult Specialty:: General Surgery Reason for Consultation:: appendiceal tip mass - History of Present Illness Chief Complaint: LE swelling History of Present Illness: 73 yo female PMH pulmonary HTN, A-fib (on eliquis), CHF, CKD, DM presents to the ER for progressively worsening LE edema over the last 2-3 weeks. She has required assistance of a cane or another person to help her walk over the last week and she decided to come into the ER today. Her lasix was increased to 40mg earlier this week but has not helped to decrease her LE swelling. She is a somewhat poor historian and was unable to explain why her hydralazine was stopped and does not remember some medications she is taking or has taken in the recent past including steroids/prednisone. She reports having a kidney biopsy done in the last year but does not remember the results, only that there was "protein in the kidney". CT scan hand and abnormal finding and we were called to assess. - History Source History Provided By: Patient, Medical Record Limitations to Obtaining History: No Limitations - Past Medical History Cardio/Vascular: Yes: AFIB, HTN, Hyperlipdemia Pulmonary: Yes: Asthma Renal/: Yes: Other (renal cyst and adrenal lesion) Endocrine: Yes: Diabetes Mellitus - Alcohol/Substance Use Hx Alcohol Use: No History of Substance Use: reports: None - Smoking History Smoking history: Never smoked Have you smoked in the past 12 months: No - Social History Place of : [facility] History of Recent Travel: No Home Medications - Allergies Allergies/Adverse Reactions: Allergies Allergy/AdvReac Type Severity Reaction Status Date / Time melon Allergy Verified 10/31/18 18:06 strawberry Allergy Verified 10/31/18 18:06 lactose AdvReac Verified 10/31/18 18:06 - Home Medications Home Medications: Ambulatory Orders Brimonidine Tartrate [Alphagan 0.15% -] 1 drop OU BID 06/02/18 Lactobacillus Acidophilus [Bacid -] 1 tab PO DAILY #30 tab 06/17/18 Ferrous Sulfate [Feosol] 325 mg PO BID 07/15/18 Albuterol Sulfate [Proair Hfa] 8.5 gm IH DAILY 07/21/18 Apixaban [Eliquis] 5 mg PO BID 07/21/18 Amlodipine Besylate [Norvasc -] 5 mg PO DAILY 10/31/18 Furosemide [Lasix -] 20 mg PO BID 10/31/18 Atorvastatin Ca [Lipitor] 20 mg PO DAILY 11/04/18 Glimepiride 2 mg PO BID 11/04/18 Prednisone [Deltasone] 20 mg PO BID 11/04/18 Cholecalciferol (Vitamin D3) [Vitamin D3] 1 tab PO DAILY 11/05/18 Folic Acid 1 mg PO DAILY 11/05/18 Review of Systems - Review of Systems Constitutional: denies: Chills, Fever Eyes: denies: Blind Spots, Recent Change in Vision HENT: denies: Difficult Swallowing, Hearing Loss, Mouth Swelling Neck: denies: Decreased ROM Cardiovascular: denies: Chest Pain, Palpitations Respiratory: denies: Cough, SOB Gastrointestinal: reports: Nausea, Vomiting. denies: Bloating, Constipation, Other Genitourinary: denies: Incontinence, Testicular Swelling Breasts: reports: No Symptoms Reported. denies: Pain Musculoskeletal: denies: Back Pain, Joint Pain, Joint Swelling Integumentary: denies: Blister, Bruising, Incision Neurological: denies: Seizure, Syncope, Weakness Endocrine: denies: Unexplained Weight Gain, Unexplained Weight Loss Hematology/Lymphatic: denies: Easily Bruised, Excessive Bleeding Psychiatric: denies: Anxiety, Depression Physical Exam Vital Signs: Vital Signs Temperature 100.3 F H 11/05/18 18:00 Pulse Rate 98 H 11/05/18 18:00 Respiratory Rate 19 11/05/18 18:00 Blood Pressure 140/82 11/05/18 18:00 O2 Sat by Pulse Oximetry (%) 97 11/05/18 09:00 Vital Signs Period Temp Pulse Resp BP Sys/Red Pulse Ox Last 24 Hr 97.4 F-98.0 F 74-90 18-22 125-142/51-86 98-99 Constitutional: Yes: No Distress, Calm, Thin Eyes: Yes: Conjunctiva Clear, EOM Intact HENT: Yes: Atraumatic, Normocephalic Neck: Yes: Supple, Trachea Midline Cardiovascular: Yes: Regular Rate and Rhythm, S1, S2 Respiratory: Yes: Regular, CTA Bilaterally Gastrointestinal: Yes: Normal Bowel Sounds, Soft. No: Hepatomegaly, Palpable Mass, Tenderness, Tenderness, Epigastrium, Tenderness, Rebound ...Rectal Exam: Yes: Deferred Renal/: No: CVA Tenderness - Left, CVA Tenderness - Right Breast(s): No: Mass, Skin Changes Musculoskeletal: No: Muscle Weakness Extremities: No: Cool, Cyanosis Edema: No Peripheral Pulses WNL: Yes Integumentary: No: Jaundice, Pressure Ulcer, Rash Neurological: Yes: Alert, Oriented Psychiatric: Yes: Alert, Oriented Labs: CBC, BMP 11/05/18 05:30 11/05/18 05:30 Imaging - Results Cat Scan: Report Reviewed, Image Reviewed (dialted tip of appendix, possible ontrast distension, no other signs of neoplasm) Problem List - Problems (1) Abnormal CT of the abdomen Assessment/Plan: 73yo female MMP with abnormal finding on CT scan at appendix. clinically asymptomatic. Very low index of suspicion for acute appendcitis and or neoplasm. No acute surgical intervention indicated. Reccomend close followup Repeat CT scan Abd/Pelvis with PO and IV in 3 months Followup in surgery clinic if symptoms of Acute appendicitis evlove Thank you for the opportunity to participate in the care of this patient. Code(s): R93.5 - ABN FINDINGS ON DX IMAGING OF ABD REGIONS, INC RETROPERITON (2) Hyperglycemic hyperosmolar nonketotic coma Code(s): E11.01 - TYPE 2 DIABETES MELLITUS WITH HYPEROSMOLARITY WITH COMA (3) Asthma Code(s): J45.909 - UNSPECIFIED ASTHMA, UNCOMPLICATED Qualifiers: Asthma severity: mild Asthma persistence: intermittent Asthma complication type: uncomplicated Qualified Code(s): J45.20 - Mild intermittent asthma, uncomplicated (4) HTN (hypertension) Code(s): I10 - ESSENTIAL (PRIMARY) HYPERTENSION Qualifiers: Hypertension type: essential hypertension Qualified Code(s): I10 - Essential (primary) hypertension (5) Lung mass Code(s): R91.8 - OTHER NONSPECIFIC ABNORMAL FINDING OF LUNG FIELD (6) Pulmonary HTN Code(s): I27.20 - PULMONARY HYPERTENSION, UNSPECIFIED
[2018-11-05] MEDS: predniSONE 20 MG TABLET (UD) PO SCH (22:01)
[2018-11-06] MEDS ORDERED: PIPERACILLIN/TAZOBACTAM 3.375 GM VIAL IVPB ONE ×2 (00:34→09:30)
[2018-11-06] MEDS ORDERED: DEXTROSE 5%-WATER - 50 ML IVPB ONE ×2 (00:34→09:30)
[2018-11-06] MEDS: PIPERACILLIN/TAZOB 3.375 GM 3.375 GM in DEXTROSE 5%-WATER - 50 ML IVPB SCH ×2 (02:15→17:35)
[2018-11-06] MEDS: INSULIN SLIDING SCALE (NOVOLOG) 1 VIAL SQ SCH ×3 (06:12→17:35)
[2018-11-06 07:19] LABS: BASO % 0.2 % (0-2.0); HEMATOCRIT 31.2 % (32.4-45.2); HEMOGLOBIN 10.5 GM/dL (10.7-15.3); LYMPH % 13.4 % (8-40); MCH 33.1 pg (25.7-33.7); MCHC 33.8 g/dl (32.0-36.0); MEAN CELL VOLUME 97.8 fl (80-96); MEAN PLT VOLUME 9.8 fl (7.5-11.1); MONO % 1.7 % (3.8-10.2); NEUT % 84.7 % (42.8-82.8); PLATELET COUNT 146 K/MM3 (134-434); RBC 3.19 M/mm3 (3.60-5.2); RDW 13.8 % (11.6-15.6); RETICULOCYTES 0.96 % (0.5-1.5)
[2018-11-06 08:06] LABS: ANION GAP 4 MMOL/L (8-16); BLOOD UREA NITROGEN 10 mg/dL (7-18); CALCIUM 7.3 mg/dL (8.5-10.1); CHLORIDE 103 mmol/L (98-107); CO2 32 mmol/L (21-32); CREATININE 0.6 mg/dL (0.55-1.3); GLUCOSE,RANDOM 213 mg/dL (74-106); MAGNESIUM 1.9 mg/dL (1.8-2.4); PHOSPHOROUS 2.5 mg/dL (2.5-4.9); POTASSIUM 4.4 mmol/L (3.5-5.1); SODIUM 139 mmol/L (136-145)
--- NOTE | 2018-11-06 09:29 | CON.GI ---
Consult Consult Specialty:: GI Referred by:: Hospitalist service Reason for Consultation:: Abnormal CT scan of the abdomen and pelvis - History of Present Illness Chief Complaint: Shortness of breath, leg swelling and elevated blood glucose History of Present Illness: 73F admitted 10/31/18 for evaluation of progressive leg swelling, shortness of breath. Noted to have blood glucose >800 in ED. Being evaluated by pulmonary, ID , cardiology, nephrology. Had a rapid response called 11/02: was noted to be profoundly hypoglycemic without IV access. Had Abd US and contrast CT scan of the A/P for evaluation of LLQ pain per progress note that day. US (performed for elevated ALP) was unrevealing while CT scan revealed a hiatal hernia, edematous appearing gastric wall, moderate to severe atherosclerotic disease at the take off of the celiac artery, widely patent SMA, diverticulosis without evidence of diverticulitis, Thickened tip of the appendix, and a hypervascular lung mass. Echo revealed dilated right ventricle with moderately reduced RV function, mild to moderate mitral regurgitation and severe tricuspid regurgitation. Evaluated by cardiology: patient with severe pulmonary HTN as well. Asked to evaluate thickened gastric wall. Ms. Saravia currently denies abdominal pain. She denies N/V. She denies early satiety and seemed to be eating breakfast without complaints this morning. She states that she will occasionally get right sided "gas pain" that resolves with bowel movements. She denies a change in bowel habits, rectal bleeding or unintentional weight loss. She believes that she had a colonoscopy >10 years prior that was OK. She has never had an upper endoscopy. There is no family history of colorectal cancer or other GI malignancy. She is currently being treated for suspected genital herpes. - History Source History Provided By: Patient, Medical Record Limitations to Obtaining History: No Limitations - Past Medical History Cardio/Vascular: Yes: AFIB (PAF), HTN, Hyperlipdemia Pulmonary: Yes: Asthma Renal/: Yes: Other (renal cyst and adrenal lesion) Endocrine: Yes: Diabetes Mellitus - Past Surgical History Additional Surgical History: Denies - Alcohol/Substance Use Hx Alcohol Use: Yes (occasional in past) History of Substance Use: reports: None - Smoking History Smoking history: Never smoked Have you smoked in the past 12 months: No - Social History Usual Living Arrangement: With Spouse ADL: Independent 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 Place of : Other ([place]) History of Recent Travel: No Home Medications - Allergies Allergies/Adverse Reactions: Allergies Allergy/AdvReac Type Severity Reaction Status Date / Time melon Allergy Verified 10/31/18 18:06 strawberry Allergy Verified 10/31/18 18:06 lactose AdvReac Verified 10/31/18 18:06 - Home Medications Home Medications: Ambulatory Orders Brimonidine Tartrate [Alphagan 0.15% -] 1 drop OU BID 06/02/18 Lactobacillus Acidophilus [Bacid -] 1 tab PO DAILY #30 tab 06/17/18 Ferrous Sulfate [Feosol] 325 mg PO BID 07/15/18 Albuterol Sulfate [Proair Hfa] 8.5 gm IH DAILY 07/21/18 Apixaban [Eliquis] 5 mg PO BID 07/21/18 Amlodipine Besylate [Norvasc -] 5 mg PO DAILY 10/31/18 Furosemide [Lasix -] 20 mg PO BID 10/31/18 Atorvastatin Ca [Lipitor] 20 mg PO DAILY 11/04/18 Glimepiride 2 mg PO BID 11/04/18 Prednisone [Deltasone] 20 mg PO BID 11/04/18 Cholecalciferol (Vitamin D3) [Vitamin D3] 1 tab PO DAILY 11/05/18 Folic Acid 1 mg PO DAILY 11/05/18 Family Disease History - Family Disease History Family Disease History: Other: Father (: 60's: bleeding PUD. enlarged heart) , Mother (: 64: h//o HTN, unclear as to cause of ), Brother (3. healthy ), Sister (5: 2 : 1 from asthma complications, 1 from COPD), Son (3, 1 in ID secondary to traumatic brain injury) Other Family History: No family history of colorectal cancer or other GI malignancy Review of Systems - Review of Systems Constitutional: denies: Chills Respiratory: reports: SOB Gastrointestinal: denies: Constipation, Diarrhea, Dysphagia, Melena, Nausea, Rectal Bleeding, Vomiting, Vomiting Blood Physical Exam-GI Vital Signs: Vital Signs Temperature 97.8 F 11/06/18 06:00 Pulse Rate 74 11/06/18 06:00 Respiratory Rate 18 11/06/18 06:00 Blood Pressure 133/77 11/06/18 06:00 O2 Sat by Pulse Oximetry (%) 98 11/06/18 06:00 Constitutional: Yes: Calm Eyes: No: Sclera Icterus Cardiovascular: Yes: Regular Rate and Rhythm. No: Murmur Respiratory: Yes: CTA Bilaterally Gastrointestinal Inspection: Yes: Other (Limited abdominal exam as patient was sitting up in chair.). No: Distention ...Auscultate: Yes: Normoactive Bowel Sounds ...Palpate: Yes: Hepatomegaly, Splenomegaly. No: Tenderness ...Percussion: No: Tympanitic Edema: Yes Edema: LLE: 2+, RLE: 2+ Neurological: Yes: Alert Labs: CBC, BMP 11/06/18 06:00 11/06/18 06:00 INR, PTT INR 0.98 (0.83-1.09) 10/31/18 18:39 Hepatic Panel Total Bilirubin 0.3 mg/dL (0.2-1) 11/05/18 05:30 AST 39 U/L (15-37) H 11/05/18 05:30 ALT 53 U/L (13-61) 11/05/18 05:30 Alkaline Phosphatase 176 U/L (45-117) H 11/05/18 05:30 Albumin 1.3 g/dl (3.4-5.0) L 11/05/18 05:30 Laboratory Tests 11/06/18 11/06/18 06:00 06:00 Iron Pending TIBC Pending Iron Saturation Pending Ferritin 615.9 H Laboratory Tests 06/02/18 07/12/18 11/05/18 21:47 13:55 20:00 Stool Occult Blood Negative Negative Negative Laboratory Tests 07/13/18 07:30 Hep Bs Antigen Negative Hep Bs Antibody Non reactive Hep B Core Total Ab Negative Hep B Core IgM Ab Negative Hepatitis Be Antibody Negative Hepatitis Be Antigen Negative Imaging - Results Cat Scan: Report Reviewed, Image Reviewed Ultrasound: Report Reviewed Problem List - Problems (1) Abnormal CT of the abdomen Assessment/Plan: 1.Gastric wall edema: asymptomatic. Unclear significance. ? if reflecting severe hypoalbuminemic state 2. Thickened tip of appendix - UGIS for further evaluation (ordered for AM) - Protonix 20mg once daily - When cleared from cardiopulmonary standpoint and pending findings from UGIS upper endoscopy / colonoscopy could be undertaken for further evaluation of gastric findings and anemia. Iron studies are pending. - Surgical evaluation of appendix findings Code(s): R93.5 - ABN FINDINGS ON DX IMAGING OF ABD REGIONS, INC RETROPERITON (2) Abnormal liver function tests Assessment/Plan: AST/ALP elevation. Improving since admission and with medical optimization. ? if secondary to right sided heart failure that is now improving. Continue to monitor for normalizing trend, check GGT, avoid hepatotoxic agents, check hep C antibody. Recent hepatitis B serologies were negative including hep B surface antibody. Should be offered hepatitis B vaccination along with Hep A vaccination if not immune. If ALP does not continue to normalize (previously normal), check MRCP to evaluate biliary tract and evaluate for non-GI source. Code(s): R94.5 - ABNORMAL RESULTS OF LIVER FUNCTION STUDIES (3) Anemia Assessment/Plan: Iron studies pending ? history of autoimmune process / chronic disease EGD/Colon when cleared from cariopulmonary standpoint Further work-up per primary team Code(s): D64.9 - ANEMIA, UNSPECIFIED Qualifiers: Anemia type: unspecified type Qualified Code(s): D64.9 - Anemia, unspecified (4) Lung mass Assessment/Plan: Work-up per primary team Code(s): R91.8 - OTHER NONSPECIFIC ABNORMAL FINDING OF LUNG FIELD
[2018-11-06] MEDS: valACYclovir HCL 500 MG TABLET (FP) PO SCH ×2 (09:50→21:18)
[2018-11-06] MEDS: predniSONE 20 MG TABLET (UD) PO SCH ×2 (09:51→21:18)
[2018-11-06] MEDS: APIXABAN 5 MG TABLET PO SCH ×2 (09:54→21:18)
[2018-11-06 10:10] LABS: ERYTHROCYTE SEDIMENTATION RATE 69 mm/hr (0-30)
--- NOTE | 2018-11-06 10:47 | PN ---
Progress Note, Physician History of Present Illness: PULMONARY ALERT,SITTING UP IN BED,SOB IMPROVING - Current Medication List Current Medications: Active Medications Acetaminophen (Tylenol -) 650 mg PO Q6H PRN PRN Reason: FEVER Last Admin: 11/05/18 17:24 Dose: 650 mg Apixaban (Eliquis -) 5 mg PO BID [facility] Last Admin: 11/06/18 09:54 Dose: 5 mg Furosemide (Lasix -) 20 mg PO BID@0600,1400 [facility] Piperacillin Sod/Tazobactam (Sod 3.375 gm/ Dextrose) 50 mls @ 100 mls/hr IVPB Q8H-IV [facility]; Protocol Insulin Aspart (Novolog Vial Sliding Scale -) 1 vial SQ TIDAC [facility]; Protocol Last Admin: 11/06/18 06:12 Dose: 2 units Insulin Detemir (Levemir Vial) 5 units SQ 0700 [facility] Pantoprazole Sodium (Protonix -) 20 mg PO DAILY [facility] Prednisone (Deltasone -) 20 mg PO BID [facility] Last Admin: 11/06/18 09:51 Dose: 20 mg Valacyclovir HCl (Valtrex -) 500 mg PO BID [facility] Last Admin: 11/06/18 09:50 Dose: 500 mg - Objective Vital Signs: Vital Signs Temperature 97.9 F 11/06/18 10:00 Pulse Rate 78 11/06/18 10:00 Respiratory Rate 22 H 11/06/18 10:00 Blood Pressure 130/86 11/06/18 10:00 O2 Sat by Pulse Oximetry (%) 98 11/06/18 06:00 Constitutional: Yes: Well Nourished, Calm Eyes: Yes: WNL HENT: Yes: WNL Neck: Yes: WNL Cardiovascular: Yes: Pulse Irregular, S1, S2 Respiratory: Yes: Diminished Gastrointestinal: Yes: Normal Bowel Sounds, Soft Extremities: Yes: WNL Edema: Yes Labs: CBC, BMP 11/06/18 06:00 11/06/18 06:00 INR, PTT INR 0.98 (0.83-1.09) 10/31/18 18:39 - ....Imaging Cat Scan: Report Reviewed, Image Reviewed Problem List - Problems (1) CHF (congestive heart failure) Code(s): I50.9 - HEART FAILURE, UNSPECIFIED Qualifiers: Heart failure type: systolic Heart failure chronicity: chronic Qualified Code(s): I50.22 - Chronic systolic (congestive) heart failure (2) Drug-induced lupus erythematosus Code(s): L93.2 - OTHER LOCAL LUPUS ERYTHEMATOSUS; T50.905A - ADVERSE EFFECT OF UNSP DRUG/MEDS/BIOL SUBST, INIT (3) Elevated lactic acid level Code(s): R79.89 - OTHER SPECIFIED ABNORMAL FINDINGS OF BLOOD CHEMISTRY (4) Hyperglycemic hyperosmolar nonketotic coma Code(s): E11.01 - TYPE 2 DIABETES MELLITUS WITH HYPEROSMOLARITY WITH COMA (5) A-fib Code(s): I48.91 - UNSPECIFIED ATRIAL FIBRILLATION Qualifiers: Atrial fibrillation type: paroxysmal Qualified Code(s): I48.0 - Paroxysmal atrial fibrillation (6) HTN (hypertension) Code(s): I10 - ESSENTIAL (PRIMARY) HYPERTENSION Qualifiers: Hypertension type: essential hypertension Qualified Code(s): I10 - Essential (primary) hypertension (7) Lung mass Code(s): R91.8 - OTHER NONSPECIFIC ABNORMAL FINDING OF LUNG FIELD (8) Pulmonary HTN Code(s): I27.20 - PULMONARY HYPERTENSION, UNSPECIFIED Assessment/Plan ASSESSMENT AND PLAN: Hyperosmolar Hyperglycemic Nonketotic State improved Severe Pulmonary HTN Previous history of Hydralazine induced lupus syndrome Paroxysmal Atrial Fibrillation with RVR Lactic Acidosis r/o Ischemic Bowel HTN CKD Asthma Previous [facility] ruled out RLL rounded mass ?PNA ,? malignant - BD TX PRN - glucose control - rate controlled - anticoagulation - Will need outpatient follow up to document resolution of RLL process ,if no change PET CT DR LANCE
--- NOTE | 2018-11-06 11:36 | PN ---
Progress Note (short form) - Note Progress Note: s: stable sob, edema. no chest pain, palps Current Medications Generic Name Dose Route Start Last Admin Trade Name Freq PRN Reason Stop Dose Admin Acetaminophen 650 mg 11/05/18 08:06 11/05/18 17:24 Tylenol - PO 650 mg Q6H PRN Administration FEVER Apixaban 5 mg 11/05/18 10:00 11/06/18 09:54 Eliquis - PO 5 mg BID ANITA Administration Furosemide 20 mg 11/06/18 14:00 Lasix - PO BID@0600,1400 [facility] Piperacillin Sod/Tazobactam 50 mls @ 100 mls/hr 11/05/18 10:00 Sod 3.375 gm/ Dextrose IVPB Q8H-IV ANITA Protocol Insulin Aspart 1 vial 11/05/18 16:30 11/06/18 06:12 Novolog Vial Sliding Scale - SQ 2 units TIDAC ANITA Administration Protocol Insulin Detemir 5 units 11/07/18 07:00 Levemir Vial SQ 0700 [facility] Pantoprazole Sodium 20 mg 11/06/18 10:00 Protonix - PO DAILY ANITA Prednisone 20 mg 11/05/18 22:00 11/06/18 09:51 Deltasone - PO 20 mg BID ANITA Administration Valacyclovir HCl 500 mg 11/05/18 10:00 11/06/18 09:50 Valtrex - PO 500 mg BID ANITA Administration Vital Signs Period Temp Pulse Resp BP Sys/Red Pulse Ox Last 24 Hr 97.4 F-100.3 F 74-98 18-22 125-140/51-86 98-99 Constitutional: Yes: No Distress, Calm Eyes: No: Sclera Icterus HENT: No: Nasal Congestion Cardiovascular: Yes: Regular Rate and Rhythm, Murmur (EVY at LSB), S1, S2, Other (PMI non diplaced). No: JVD, Gallop Respiratory: Yes: CTA Bilaterally. No: Accessory Muscle Use Gastrointestinal: Yes: Normal Bowel Sounds, Soft, nt Extremities: No: Cold Edema: Yes (trace LEs) Integumentary: No: Jaundice Neurological: Yes: Alert, Oriented (x3) Psychiatric: No: Agitated Laboratory Last Values WBC 7.0 K/mm3 (4.0-10.0) 11/06/18 06:00 RBC 3.19 M/mm3 (3.60-5.2) L 11/06/18 06:00 Hgb 10.5 GM/dL (10.7-15.3) L 11/06/18 06:00 Hct 31.2 % (32.4-45.2) L 11/06/18 06:00 MCV 97.8 fl (80-96) H 11/06/18 06:00 MCH 33.1 pg (25.7-33.7) 11/06/18 06:00 MCHC 33.8 g/dl (32.0-36.0) 11/06/18 06:00 RDW 13.8 % (11.6-15.6) 11/06/18 06:00 Plt Count 146 K/MM3 (134-434) 11/06/18 06:00 MPV 9.8 fl (7.5-11.1) 11/06/18 06:00 Absolute Neuts (auto) 5.9 K/mm3 (1.5-8.0) 11/06/18 06:00 Total Counted 100 10/31/18 18:39 Neutrophils % 84.7 % (42.8-82.8) H 11/06/18 06:00 Neutrophils % (Manual) 90.0 % (42.8-82.8) H 10/31/18 18:39 Band Neutrophils % 1.0 % 10/31/18 18:39 Lymphocytes % 13.4 % (8-40) 11/06/18 06:00 Lymphocytes % (Manual) 6.0 % (8-40) L D 10/31/18 18:39 Monocytes % 1.7 % (3.8-10.2) L 11/06/18 06:00 Monocytes % (Manual) 3 % (3.8-10.2) L D 10/31/18 18:39 Eosinophils % 0.0 % (0-4.5) D 11/06/18 06:00 Basophils % 0.2 % (0-2.0) 11/06/18 06:00 Nucleated RBC % 0 % (0-0) 11/06/18 06:00 Platelet Estimate Decreased 10/31/18 18:39 Platelet Comment No clumping noted 10/31/18 18:39 ESR 69 mm/hr (0-30) H 11/06/18 06:00 Retic Count 0.96 % (0.5-1.5) D 11/06/18 06:00 PT with INR 11.60 SEC (9.7-13.0) 10/31/18 18:39 INR 0.98 (0.83-1.09) 10/31/18 18:39 PTT (Actin FS) 30.8 SECONDS (25.2-36.5) 10/31/18 18:39 VBG pH 7.41 (7.32-7.42) 10/31/18 18:39 POC VBG pCO2 53.3 mmHg (38-52) H 10/31/18 18:39 POC VBG pO2 39.2 mmHg (28-48) 10/31/18 18:39 Mixed VBG HCO3 33.0 meq/L (19-25) H 10/31/18 18:39 Sodium 139 mmol/L (136-145) 11/06/18 06:00 Potassium 4.4 mmol/L (3.5-5.1) 11/06/18 06:00 Chloride 103 mmol/L (98-107) 11/06/18 06:00 Carbon Dioxide 32 mmol/L (21-32) 11/06/18 06:00 Anion Gap 4 MMOL/L (8-16) L 11/06/18 06:00 BUN 10 mg/dL (7-18) 11/06/18 06:00 Creatinine 0.6 mg/dL (0.55-1.3) 11/06/18 06:00 Creat Clearance w eGFR > 60 (>60) 11/06/18 06:00 POC Glucometer 200 UNITS (80-120) 11/06/18 05:49 Random Glucose 213 mg/dL (74-106) H 11/06/18 06:00 Hemoglobin A1c % 14.6 % (4.2-6.3) H 11/01/18 05:25 Lactic Acid 1.4 mmol/L (0.4-2.0) 11/03/18 05:30 Calcium 7.3 mg/dL (8.5-10.1) L 11/06/18 06:00 Phosphorus 2.5 mg/dL (2.5-4.9) 11/06/18 06:00 Magnesium 1.9 mg/dL (1.8-2.4) 11/06/18 06:00 Ferritin 615.9 ng/ml (8-388) H 11/06/18 06:00 Total Bilirubin 0.3 mg/dL (0.2-1) 11/05/18 05:30 AST 39 U/L (15-37) H 11/05/18 05:30 ALT 53 U/L (13-61) 11/05/18 05:30 Alkaline Phosphatase 176 U/L (45-117) H 11/05/18 05:30 LD Total 695 U/L (84-246) H 11/06/18 06:00 Creatine Kinase 103 U/L (26-192) 11/01/18 05:25 Troponin I 0.26 ng/ml (0.00-0.05) H 11/03/18 05:30 B-Natriuretic Peptide 891.3 pg/ml (5-450) H 10/31/18 18:39 Total Protein 4.5 g/dl (6.4-8.2) L 11/05/18 05:30 Albumin 1.3 g/dl (3.4-5.0) L 11/05/18 05:30 Vitamin B12 2666 pg/ml (193-986) H 11/06/18 06:00 Serum Folate 20 ng/mL (3.1-17.5) H 11/06/18 06:00 TSH 0.95 uIU/ml (0.358-3.74) 11/06/18 06:00 Cortisol AM Sample 19.6 ug/dL (.) 11/03/18 05:30 Urine Color Yellow 11/02/18 13:30 Urine Appearance Slcloudy 11/02/18 13:30 Urine pH 7.0 (5.0-8.0) D 11/02/18 13:30 Ur Specific [place] 1.014 (1.010-1.035) 11/02/18 13:30 Urine Protein 2+ (NEGATIVE) H 11/02/18 13:30 Urine Glucose (UA) 2+ (NEGATIVE) H 11/02/18 13:30 Urine Ketones Negative (NEGATIVE) 11/02/18 13:30 Urine Blood Negative (NEGATIVE) 11/02/18 13:30 Urine Nitrite Positive (NEGATIVE) 11/02/18 13:30 Urine Bilirubin Negative (<2.0 mg/dL) 11/02/18 13:30 Urine Urobilinogen Negative mg/dL (0.2-1.0) 11/02/18 13:30 Ur Leukocyte Esterase Negative (NEGATIVE) 11/02/18 13:30 Urine WBC (Auto) 2 /hpf (3-5) 11/02/18 13:30 Urine RBC (Auto) 1 /hpf (0-3) 11/02/18 13:30 Ur Epithelial Cells Few /HPF (FEW) 10/31/18 21:54 Urine Bacteria Few /hpf (NONE SEEN) 11/02/18 13:30 Stool Occult Blood Negative (NEGATIVE) 11/05/18 20:00 Acetone, Qual Positive,trace (NEGATIVE) 10/31/18 21:00 Influenza A (Rapid) Negative 10/31/18 18:30 Influenza B (Rapid) Negative 10/31/18 18:30 Assessment/Plan ECG: NSR with APCs, normal intervals/axis. inc RBBB. nonsp TWAs (no change vs ) CXR: enlarged heart (unchanged vs 05/2018). clear lungs/pleura tele: sr LE edema: -suspect etiology is venous insufficiency and CCB effect > right sided CHF -JV pressure appears normal, and she has had no sob or signif hypoxia -edema improves with leg elevation -continue holding amlodipine -start SHAHID stockings -agree with po lasix severe pulm HTN with chronic right-sided CHF, severe TR: -etiology unknown--no signs CTEPH on V/Q, no [id number] shunt on CTA (cannot tolerate MRI-claustrophobia), no signs L sided diast CHF clinically and on stress echo. pt refused definitive assessment with RHC -BNP 800 (2K prior) -had been well-compensated and clinically euvolemic, NYHA III (1 flight of stairs) for long time -suspect edema is venous insy/ccb effect--much improved here off amlodipine with leg elevation. holding lasix -sat.s ok here, renal fxn stable, no signs hepatic congestion. do not suspect decompensated R heart failure, as disc'd above low-grade temp (100.3), lactic acidosis, abdominal pain, abnormal LFTs, low albumin (1.4): -lactate now normalized -sepsis workup thus far negative -AST/LT/alk phos trending down - BP stable -doubt sx's or LFTs are from congestive hepatopathy in light of no JVD and no appreciable hepatomeg/pulsatility on exam paroxysmal AFib, PAT: -rare episodes on event monitor and stress test -no standing AVN blockers given sinus node dysfunction on prior event monitor -no standing AVN blockers. cont tele, rate stable -continue home Eliquis (5 bid) VTach: -3 beat run on tele--resolved since -normal LVEF--low risk for malignant arrhythmia - replete K to 4, Mag to 2 DM with hyperosmolar/hyperglycemic state, no mental status changes: -A1c 14 -glycemia tx per primary HTN: -historically labile bp goes very hi when med lapses -was controlled on amlodipine, ARB long time -ARB held for ANNA--much lower potency regimen (losartan 25) resumed -BP 150s in office last week--currently controlled here -no amlodipine (edema) -no AVN blockers, including clonidine (asymptomatic SN dysfunction on event monitor--would need PPM to enable safe use this class of meds) -no hydral (prior positive anti-histone Ab/? drug induced SLE) -prefer to defer thiazide for now, given prior atypical creatinine behavior ( ditto for spironolactone) -observe BP trend--if rises, will start ARB With close f/u of renal fxn
--- NOTE | 2018-11-06 11:46 | PN ---
Teaching Attending Note Name of Resident: La Wild ATTENDING PHYSICIAN STATEMENT I saw and evaluated the patient. I reviewed the resident's note and discussed the case with the resident. I agree with the resident's findings and plan as documented. SUBJECTIVE:Patient seen and examined Presents with hyperglycemia and non ketotic, hyperosmolar state. Multiple other co-morbid medical issues. Pneumonia receiving antibiotics per ID. CT with RLL mass and sub-cm pulmonary nodules. Abdominal CT with abnormal appearance of appendix. Last Vital Signs Temp Pulse Resp BP Pulse Ox 97.9 F 78 22 H 130/86 99 11/06/18 10:00 11/06/18 10:00 11/06/18 10:00 11/06/18 10:00 11/06/18 09:00 HEENT: FEDE, EOM Intact Oropharynx: No thrush, No mucositis Neck: Supple Nodes: Without adenopathy Breasts: Without masses Cor: RSR, systolic murmur Lungs: rales at bases Abd: Soft, Normal bowel sounds, No organomegaly Ext: significant edema bilateral Skin: No rashes, Integument intact CBC, BMP 11/06/18 06:00 11/06/18 06:00 Current Medications Generic Name Dose Route Start Last Admin Trade Name Freq PRN Reason Stop Dose Admin Acetaminophen 650 mg 11/05/18 08:06 11/05/18 17:24 Tylenol - PO 650 mg Q6H PRN Administration FEVER Apixaban 5 mg 11/05/18 10:00 11/06/18 09:54 Eliquis - PO 5 mg BID ANITA Administration Furosemide 20 mg 11/06/18 14:00 Lasix - PO BID@0600,1400 [facility] Piperacillin Sod/Tazobactam 50 mls @ 100 mls/hr 11/05/18 10:00 Sod 3.375 gm/ Dextrose IVPB Q8H-IV [facility] Protocol Insulin Aspart 1 vial 11/05/18 16:30 11/06/18 06:12 Novolog Vial Sliding Scale - SQ 2 units TIDAC ANITA Administration Protocol Insulin Detemir 5 units 11/07/18 07:00 Levemir Vial SQ 0700 [facility] Pantoprazole Sodium 20 mg 11/06/18 10:00 Protonix - PO DAILY [facility] Prednisone 20 mg 11/05/18 22:00 11/06/18 09:51 Deltasone - PO 20 mg BID ANITA Administration Valacyclovir HCl 500 mg 11/05/18 10:00 11/06/18 09:50 Valtrex - PO 500 mg BID ANITA Administration Impression: Pulmonary hypertension Right sided CHF RLL mass with sub-cm pulmonary nodules Abnormal CT of appendix HBP Pneumonia Hyperglycenmia with hyperosmolar non ketotic state-resolved Plan Consider PET CT as out patient and then ashleigh likely need tissue dx. OBJECTIVE: ASSESSMENT AND PLAN:
[2018-11-06] MEDS: PANTOPRAZOLE 20 MG TABLET (FP) PO SCH (12:52)
[2018-11-06] MEDS: FUROSEMIDE 20 MG TABLET (FP) PO SCH (13:17)
--- NOTE | 2018-11-06 13:55 | PN ---
Physical Exam: SUBJECTIVE: Patient seen and examined; hemoptysis subsided; cough improved; eating well; H/H slightly dropping with macrocytosis OBJECTIVE: Vital Signs Period Temp Pulse Resp BP Sys/Red Pulse Ox Last 24 Hr 97.4 F-100.3 F 74-98 18-22 125-140/51-86 98-99 GENERAL: The patient is awake, alert, and fully oriented, in no acute distress. LUNGS: decreased breath suds; clear HEART: Regular rate and irreg rhythm, S1, S2 without murmur, rub or gallop. ABDOMEN: Soft, nontender, nondistended, normoactive bowel sounds, no guarding, no rebound, no hepatosplenomegaly, no masses. EXTREMITIES: 2+ pulses, warm, well-perfused, no edema. NEUROLOGICAL: Cranial nerves II through XII grossly intact. Normal speech, gait not observed. PSYCH: Normal mood, normal affect. SKIN: Warm, dry, normal turgor, no rashes or lesions noted Laboratory Results - last 24 hr 11/05/18 11/05/18 11/05/18 16:58 20:00 22:00 WBC RBC Hgb Hct MCV MCH MCHC RDW Plt Count MPV Absolute Neuts (auto) Neutrophils % Lymphocytes % Monocytes % Eosinophils % Basophils % Nucleated RBC % ESR Retic Count Sodium Potassium Chloride Carbon Dioxide Anion Gap BUN Creatinine Creat Clearance w eGFR POC Glucometer 168 143 Random Glucose Calcium Phosphorus Magnesium Ferritin LD Total Vitamin B12 Serum Folate TSH Stool Occult Blood Negative 11/06/18 11/06/18 11/06/18 05:49 06:00 06:00 WBC 7.0 RBC 3.19 L Hgb 10.5 L Hct 31.2 L MCV 97.8 H MCH 33.1 MCHC 33.8 RDW 13.8 Plt Count 146 MPV 9.8 Absolute Neuts (auto) 5.9 Neutrophils % 84.7 H Lymphocytes % 13.4 Monocytes % 1.7 L Eosinophils % 0.0 D Basophils % 0.2 Nucleated RBC % 0 ESR 69 H Retic Count 0.96 D Sodium Potassium Chloride Carbon Dioxide Anion Gap BUN Creatinine Creat Clearance w eGFR POC Glucometer 200 Random Glucose Calcium Phosphorus Magnesium Ferritin LD Total 695 H Vitamin B12 2666 H Serum Folate 20 H TSH 0.95 Stool Occult Blood 11/06/18 11/06/18 06:00 11:42 WBC RBC Hgb Hct MCV MCH MCHC RDW Plt Count MPV Absolute Neuts (auto) Neutrophils % Lymphocytes % Monocytes % Eosinophils % Basophils % Nucleated RBC % ESR Retic Count Sodium 139 Potassium 4.4 Chloride 103 Carbon Dioxide 32 Anion Gap 4 L BUN 10 Creatinine 0.6 Creat Clearance w eGFR > 60 POC Glucometer 186 Random Glucose 213 H Calcium 7.3 L Phosphorus 2.5 Magnesium 1.9 Ferritin 615.9 H LD Total Vitamin B12 Serum Folate TSH Stool Occult Blood Active Medications Generic Name Dose Route Start Last Admin Trade Name Freq PRN Reason Stop Dose Admin Acetaminophen 650 mg 11/05/18 08:06 11/05/18 17:24 Tylenol - PO 650 mg Q6H PRN Administration FEVER Apixaban 5 mg 11/05/18 10:00 11/06/18 09:54 Eliquis - PO 5 mg BID ANITA Administration Furosemide 20 mg 11/06/18 14:00 11/06/18 13:17 Lasix - PO 20 mg BID@0600,1400 [facility] Administration Piperacillin Sod/Tazobactam 50 mls @ 100 mls/hr 11/05/18 10:00 Sod 3.375 gm/ Dextrose IVPB Q8H-IV [facility] Protocol Insulin Aspart 1 vial 11/05/18 16:30 11/06/18 12:51 Novolog Vial Sliding Scale - SQ 2 units TIDAC ANITA Administration Protocol Insulin Detemir 5 units 11/07/18 07:00 Levemir Vial SQ 0700 [facility] Pantoprazole Sodium 20 mg 11/06/18 10:00 11/06/18 12:52 Protonix - PO 20 mg DAILY [facility] Administration Prednisone 20 mg 11/05/18 22:00 11/06/18 09:51 Deltasone - PO 20 mg BID ANITA Administration Valacyclovir HCl 500 mg 11/05/18 10:00 11/06/18 09:50 Valtrex - PO 500 mg BID ANITA Administration ASSESSMENT/PLAN: This is a 73 year old female with a history of Focal segmental glomerlosclerosis , CKD, HTN, severe pulmonary htn, paroxysmal atrial fibrillation, asthma, recent multilobar pneumonia, who presents with hyperglycemia, found to be in hyperosmolar hyperglycemic non ketotic state. We were called to evaluate a hypervascular mass in the right lower lobe seen on an abdominal CT. Suspicious RLL hypervascular mass; seen on abdominal CT macrocytic anemia dilated appendix on abdomen/pelvis; may be secondary to contrast; would repeat ct -could be possibly due to previous pna; after infectious process clears; get PET CT; may need tissue biopsy -repeat chest CT in few weeks after infectious process resolves -anemia work up -b12/folate wnl-high -hemoglobin electrophoreisis pending -with A/G gradient being <1; will order MDS work up will follow Visit type - Emergency Visit Emergency Visit: Yes ED Registration Date: 10/31/18 Care time: The patient presented to the Emergency Department on the above date and was hospitalized for further evaluation of their emergent condition. - New Patient This patient is new to me today: Yes Date on this admission: 11/06/18 - Critical Care Critical Care patient: No
--- NOTE | 2018-11-06 17:06 | PN ---
Teaching Attending Note Name of Resident: Sara Ramos ATTENDING PHYSICIAN STATEMENT I saw and evaluated the patient. I reviewed the resident's note and discussed the case with the resident. I agree with the resident's findings and plan as documented. SUBJECTIVE: no SOB, feels much beter . has worsening LE edema today. no diarrhea OBJECTIVE: NAD, cooperative CV: RRR, no MRG Lungs: CTAB Abd: soft, Nt, Nd, NL BS. 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 1- HHS: resolved. hypoglycemia resolved. A1c 14 - start levemir in am - cont SSI TIDAC 2- Possible PNA, with R LL mass, and multiple other lung nodules . - day 5 of zosyn.last dose 2 am, will resume. low grade fever at 6 pm yesterday - need further w/u for those nodules, Mets vs. primary. PET scan as out p t 3- Appendix mass: etiology is not clear. - Sx consult : d/w Dr Conklin, f/u as out pt and CT in 3 months - GI series and possible colo this admission. 4- gastric edema: EGD per GI. D/W card , no contraindication for GI procedures. 6- A fib: cont eliquis. No AV bushra blockers due to possible SSS 7- LE edema : has chronic R sided heart fialure, hypoalbuminemia and was on norvasc. - cont to hold norvasc - resume home lasix 20 BID 8- HTN: BP nl off Norvasc. can't use BB/CCB, hydralazine and try to avoid HCTZ. - if needed and Cr stable on lasix, can start ARB 9- H/o COPD: cont chronic home dose prednisone 10 -Transaminitis: follow GGT and LFTs. MRCP if needed 11- anemia: likley anemia of chronic dz. ferritin is elevated. follow rest of iron studies. HLOC
--- NOTE | 2018-11-06 18:38 | PN ---
Physical Exam: SUBJECTIVE: Patient seen and examined at bedside. 100.3 fever yesterday evening. Denies any complaints at this time. Denies chest pain or shortness of breath. OBJECTIVE: Vital Signs Period Temp Pulse Resp BP Sys/Red Pulse Ox Last 24 Hr 97.4 F-98.0 F 74-90 18-22 125-135/51-86 98-99 GENERAL:AAOx3 NAD HEAD: Atraumatic/Normocephalic EYES: EOMI Sclera Clear ENT: MMM NECK: Supple. LUNGS: decreased Breath sounds at bases HEART: Irregular, S1S2 ABDOMEN: No guarding or rigidity. Soft Nondistended. EXTREMITIES: 3+ pitting edema b/l. PSYCH: Normal mood, normal affect. SKIN: Warm, dry, normal turgor, no rashes or lesions noted Laboratory Results - last 24 hr 11/05/18 11/05/18 11/06/18 20:00 22:00 05:49 WBC RBC Hgb Hct MCV MCH MCHC RDW Plt Count MPV Absolute Neuts (auto) Neutrophils % Lymphocytes % Monocytes % Eosinophils % Basophils % Nucleated RBC % ESR Retic Count Sodium Potassium Chloride Carbon Dioxide Anion Gap BUN Creatinine Creat Clearance w eGFR POC Glucometer 143 200 Random Glucose Calcium Phosphorus Magnesium Ferritin LD Total Vitamin B12 Serum Folate TSH Stool Occult Blood Negative 11/06/18 11/06/18 11/06/18 06:00 06:00 06:00 WBC 7.0 RBC 3.19 L Hgb 10.5 L Hct 31.2 L MCV 97.8 H MCH 33.1 MCHC 33.8 RDW 13.8 Plt Count 146 MPV 9.8 Absolute Neuts (auto) 5.9 Neutrophils % 84.7 H Lymphocytes % 13.4 Monocytes % 1.7 L Eosinophils % 0.0 D Basophils % 0.2 Nucleated RBC % 0 ESR 69 H Retic Count 0.96 D Sodium 139 Potassium 4.4 Chloride 103 Carbon Dioxide 32 Anion Gap 4 L BUN 10 Creatinine 0.6 Creat Clearance w eGFR > 60 POC Glucometer Random Glucose 213 H Calcium 7.3 L Phosphorus 2.5 Magnesium 1.9 Ferritin 615.9 H LD Total 695 H Vitamin B12 2666 H Serum Folate 20 H TSH 0.95 Stool Occult Blood 11/06/18 11/06/18 11:42 17:23 WBC RBC Hgb Hct MCV MCH MCHC RDW Plt Count MPV Absolute Neuts (auto) Neutrophils % Lymphocytes % Monocytes % Eosinophils % Basophils % Nucleated RBC % ESR Retic Count Sodium Potassium Chloride Carbon Dioxide Anion Gap BUN Creatinine Creat Clearance w eGFR POC Glucometer 186 259 Random Glucose Calcium Phosphorus Magnesium Ferritin LD Total Vitamin B12 Serum Folate TSH Stool Occult Blood Active Medications Generic Name Dose Route Start Last Admin Trade Name Freq PRN Reason Stop Dose Admin Acetaminophen 650 mg 11/05/18 08:06 11/05/18 17:24 Tylenol - PO 650 mg Q6H PRN Administration FEVER Apixaban 5 mg 11/05/18 10:00 11/06/18 09:54 Eliquis - PO 5 mg BID ANITA Administration Furosemide 20 mg 11/06/18 14:00 11/06/18 13:17 Lasix - PO 20 mg BID@0600,1400 ANITA Administration Piperacillin Sod/Tazobactam 50 mls @ 100 mls/hr 11/06/18 18:00 11/06/18 17:35 Sod 3.375 gm/ Dextrose IVPB 100 mls/hr Q8H-IV ANITA Administration Protocol Insulin Aspart 1 vial 11/05/18 16:30 11/06/18 17:35 Novolog Vial Sliding Scale - SQ 6 units TIDAC ANITA Administration Protocol Insulin Detemir 5 units 11/07/18 07:00 Levemir Vial SQ 0700 ANITA Pantoprazole Sodium 20 mg 11/06/18 10:00 11/06/18 12:52 Protonix - PO 20 mg DAILY ANITA Administration Prednisone 20 mg 11/05/18 22:00 11/06/18 09:51 Deltasone - PO 20 mg BID ANITA Administration Valacyclovir HCl 500 mg 11/05/18 10:00 11/06/18 09:50 Valtrex - PO 500 mg BID ANITA Administration ASSESSMENT/PLAN: 73 y/o F with PMHx of HTN, HLD, NIDDM, Afib (on Eliquis), CKD who was admitted for [facility] and transferred to ICU after an episode of Hypoglycemia. #Right LL Pulmonary Mass/Pneumonia? (1.7cm x1.9cm noted on CT abdomen) -Oncology on board---> Dr Clayton/Dr Wild---> get PET CT, non contrast chest CT to eval lungs gamboa. -hemoglobin electrophoreisis pending Albumin/Globulin gradient being <1; Myelodysplastic syndrome work-up per Dr Clayton/Junito -Will require outpatient follow-up -Zosyn day 5, I.V fluids -I.D on board. Blood/Urine cultures Negative. # Hyperosmolar hyperglycemic state - Will recheck BGM > 200 in am. 5 U Lantus started. 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 CTAP--> Gastric Edema. May be infectious/inflammatory. -Upper GI Series in AM #Worsening LE edema: Hold of Amlodipine. Lasix resumed. Will start ARB if renal function wnl tomorrow #Tropenemia: Most likely 2/[address] Mcnair on board #CKD : Bun/Cr 10/0.6. 44/1.7 on admission Nephrology consulted--> Dr Perez #Atrial Fibrillation - Eliqiuis 5 mg po BID #HTN Lasix resumed today as renal function wnl -will hold amlodipine in setting of worsening LE edema -if BP rises, will start ARB With close f/u of renal fxn # Lactic acidosis -Trend #FEN: No fluids Monitor Electrolytes Diabetic Diet DVT ppx: on eliquis Visit type - Emergency Visit Emergency Visit: Yes ED Registration Date: 10/31/18 Care time: The patient presented to the Emergency Department on the above date and was hospitalized for further evaluation of their emergent condition. - New Patient This patient is new to me today: No - Critical Care Critical Care patient: No - Discharge Referral Referred to [facility] Med P.C.: No
[2018-11-06] MEDS ORDERED: PT OWN MED DRAWER 7, Y5N ONE (20:49)
[2018-11-07] MEDS ORDERED: DEXTROSE 5%-WATER - 50 ML IVPB ONE ×3 (03:09→16:40)
[2018-11-07] MEDS ORDERED: PIPERACILLIN/TAZOBACTAM 3.375 GM VIAL IVPB ONE ×3 (03:09→16:40)
[2018-11-07] MEDS: PIPERACILLIN/TAZOB 3.375 GM 3.375 GM in DEXTROSE 5%-WATER - 50 ML IVPB SCH ×3 (03:18→18:08)
[2018-11-07 04:21] LABS: SERUM IRON SATURATION 33 % (15-55); TOTAL IRON BINDING CAPACITY 95 ug/dL (250-450); UIBC 64 ug/dL (118-369)
[2018-11-07] MEDS: FUROSEMIDE 20 MG TABLET (FP) PO SCH ×3 (06:16→17:53)
[2018-11-07 06:54] LABS: HEMATOCRIT 28.4 % (32.4-45.2); HEMOGLOBIN 9.7 GM/dL (10.7-15.3); MCH 32.8 pg (25.7-33.7); MCHC 34.1 g/dl (32.0-36.0); MEAN CELL VOLUME 96.3 fl (80-96); MEAN PLT VOLUME 9.9 fl (7.5-11.1); PLATELET COUNT 178 K/MM3 (134-434); RBC 2.95 M/mm3 (3.60-5.2); RDW 13.7 % (11.6-15.6); WHITE BLOOD COUNT 8.8 K/mm3 (4.0-10.0)
[2018-11-07] MEDS ORDERED: INSULIN (LEVEMIR) 100 UNITS/ML UNITS SQ SCH (07:00)
[2018-11-07 07:29] LABS: ANION GAP 5 MMOL/L (8-16); BLOOD UREA NITROGEN 12 mg/dL (7-18); CALCIUM 7.8 mg/dL (8.5-10.1); CHLORIDE 102 mmol/L (98-107); CO2 31 mmol/L (21-32); CREATININE 0.6 mg/dL (0.55-1.3); GAMMA GLUTAMYL TRANSPEPTIDASE 173 U/L (5-85); GLUCOSE,RANDOM 175 mg/dL (74-106); MAGNESIUM 2.1 mg/dL (1.8-2.4); PHOSPHOROUS 2.1 mg/dL (2.5-4.9); SODIUM 138 mmol/L (136-145)
[2018-11-07] MEDS ORDERED: NAPH,MB-DB/K PH,MBDB POWDER PACKET PO ONE ×2 (09:11→09:12)
[2018-11-07] MEDS: PANTOPRAZOLE 20 MG TABLET (FP) PO SCH (09:52)
[2018-11-07] MEDS: APIXABAN 5 MG TABLET PO SCH (09:52)
[2018-11-07] MEDS: predniSONE 20 MG TABLET (UD) PO SCH ×2 (09:53→21:06)
[2018-11-07] MEDS: valACYclovir HCL 500 MG TABLET (FP) PO SCH ×2 (09:53→21:06)
--- NOTE | 2018-11-07 10:08 | PN ---
Progress Note (short form) - Note Progress Note: feels well abdominal pain has resolved Vital Signs Period Temp Pulse Resp BP Sys/Red Pulse Ox Last 24 Hr 97.5 F-98 F 72-86 16-22 122-143/64-85 95 cor-rrr lungs decreased bs at bases abd soft,nt ext +edema CBC, BMP 11/07/18 05:30 11/07/18 05:30 Microbiology 11/01/18 22:18 Blood - Peripheral Venous Blood Culture - Final NO GROWTH AFTER 5 DAYS INCUBATION 11/02/18 15:10 Blood - Peripheral Venous Blood Culture - Preliminary NO GROWTH OBTAINED AFTER 96 HOURS, INCUBATION TO CONTINUE FOR 1 DAYS. 11/02/18 15:08 Blood - Peripheral Venous Blood Culture - Preliminary NO GROWTH OBTAINED AFTER 96 HOURS, INCUBATION TO CONTINUE FOR 1 DAYS. 10/31/18 18:39 Blood - Peripheral Venous Blood Culture - Final NO GROWTH AFTER 5 DAYS INCUBATION 10/31/18 18:15 Blood - Peripheral Venous Blood Culture - Final NO GROWTH AFTER 5 DAYS INCUBATION 11/03/18 13:30 Stool Clostridium difficile Antigen (JOHN) - Final 11/03/18 13:30 Stool Clostridium difficile Toxin Assay - Final 10/31/18 21:54 Urine - Urine Clean Catch Urine Culture - Final NO GROWTH OBTAINED Current Medications Acetaminophen (Tylenol -) 650 mg PO Q6H PRN PRN Reason: FEVER Last Admin: 11/05/18 17:24 Dose: 650 mg Apixaban (Eliquis -) 5 mg PO BID [facility] Last Admin: 11/07/18 09:52 Dose: 5 mg Furosemide (Lasix -) 20 mg PO BID@0600,1400 [facility] Last Admin: 11/07/18 06:16 Dose: 20 mg Piperacillin Sod/Tazobactam (Sod 3.375 gm/ Dextrose) 50 mls @ 100 mls/hr IVPB Q8H-IV ANITA; Protocol Last Admin: 11/07/18 09:52 Dose: 100 mls/hr Insulin Aspart (Novolog Vial Sliding Scale -) 1 vial SQ TIDAC [facility]; Protocol Last Admin: 11/06/18 17:35 Dose: 6 units Insulin Detemir (Levemir Vial) 5 units SQ 0700 ANITA Pantoprazole Sodium (Protonix -) 20 mg PO DAILY [facility] Last Admin: 11/07/18 09:52 Dose: 20 mg Prednisone (Deltasone -) 20 mg PO BID [facility] Last Admin: 11/07/18 09:53 Dose: 20 mg Valacyclovir HCl (Valtrex -) 500 mg PO BID [facility] Last Admin: 11/07/18 09:53 Dose: 500 mg a/p fevers-resolved abnormal ct abd/pelvis with dilated tip of appendix, ascites and celiac artery disease ct chest with nodule RLL zosyn day #5 she is much improved would complete 7 days of zosyn at this time, ?early appendicitis treated medically, ?pneumonia she will need an outpt pet scan suspect genital hsv-po valtrex please call back if needed
[2018-11-07] MEDS: INSULIN SLIDING SCALE (NOVOLOG) 1 VIAL SQ SCH ×3 (10:12→16:47)
[2018-11-07] MEDS ORDERED: LOSARTAN POTASSIUM 50 MG TABLET (FP) PO SCH (10:30)
--- NOTE | 2018-11-07 12:06 | PN ---
Progress Note (short form) - Note Progress Note: s: improved sob, edema. no chest pain, palps Current Medications Generic Name Dose Route Start Last Admin Trade Name Freq PRN Reason Stop Dose Admin Acetaminophen 650 mg 11/05/18 08:06 11/05/18 17:24 Tylenol - PO 650 mg Q6H PRN Administration FEVER Apixaban 5 mg 11/05/18 10:00 11/07/18 09:52 Eliquis - PO 5 mg BID ANITA Administration Furosemide 20 mg 11/06/18 14:00 11/07/18 06:16 Lasix - PO 20 mg BID@0600,1400 ANITA Administration Piperacillin Sod/Tazobactam 50 mls @ 100 mls/hr 11/06/18 18:00 11/07/18 09:52 Sod 3.375 gm/ Dextrose IVPB 100 mls/hr Q8H-IV ANITA Administration Protocol Insulin Aspart 1 vial 11/05/18 16:30 11/07/18 10:12 Novolog Vial Sliding Scale - SQ 6 units TIDAC ANITA Administration Protocol Insulin Detemir 7 units 11/08/18 07:00 Levemir Vial SQ 0700 ANITA Losartan Potassium 25 mg 11/07/18 10:30 Cozaar - PO DAILY ANITA Pantoprazole Sodium 20 mg 11/06/18 10:00 11/07/18 09:52 Protonix - PO 20 mg DAILY ANITA Administration Prednisone 20 mg 11/05/18 22:00 11/07/18 09:53 Deltasone - PO 20 mg BID ANITA Administration Valacyclovir HCl 500 mg 11/05/18 10:00 11/07/18 09:53 Valtrex - PO 500 mg BID ANITA Administration Vital Signs Period Temp Pulse Resp BP Sys/Red Pulse Ox Last 24 Hr 97.5 F-98 F 72-86 16-22 122-143/64-85 95-100 Constitutional: Yes: No Distress, Calm Eyes: No: Sclera Icterus HENT: No: Nasal Congestion Cardiovascular: Yes: Regular Rate and Rhythm, Murmur (EVY at LSB), S1, S2, Other (PMI non diplaced). No: JVD, Gallop Respiratory: Yes: CTA Bilaterally. No: Accessory Muscle Use Gastrointestinal: Yes: Normal Bowel Sounds, Soft, nt Extremities: No: Cold Edema: Yes (trace LEs) Integumentary: No: Jaundice Neurological: Yes: Alert, Oriented (x3) Psychiatric: No: Agitated CBC, BMP 11/07/18 05:30 11/07/18 05:30 Assessment/Plan ECG: NSR with APCs, normal intervals/axis. inc RBBB. nonsp TWAs (no change vs ) CXR: enlarged heart (unchanged vs 05/2018). clear lungs/pleura tele: sr LE edema: -suspect etiology is venous insufficiency and CCB effect > right sided CHF -JV pressure appears normal, and she has had no sob or signif hypoxia -edema improves with leg elevation -continue holding amlodipine -start SHAHID stockings -cont with po lasix severe pulm HTN with chronic right-sided CHF, severe TR: -etiology unknown--no signs CTEPH on V/Q, no [id number] shunt on CTA (cannot tolerate MRI-claustrophobia), no signs L sided diast CHF clinically and on stress echo. pt refused definitive assessment with RHC -BNP 800 (2K prior) -had been well-compensated and clinically euvolemic, NYHA III (1 flight of stairs) for long time -suspect edema is venous insy/ccb effect--much improved here off amlodipine with leg elevation. holding lasix -sat.s ok here, renal fxn stable, no signs hepatic congestion. do not suspect decompensated R heart failure, as disc'd above paroxysmal AFib, PAT: -rare episodes on event monitor and stress test -no standing AVN blockers given sinus node dysfunction on prior event monitor -no standing AVN blockers. cont tele, rate stable -continue home Eliquis (5 bid) DM with hyperosmolar/hyperglycemic state, no mental status changes: -A1c 14 -glycemia tx per primary HTN: -historically labile bp goes very hi when med lapses -was controlled on amlodipine, ARB long time -ARB held for ANNA--much lower potency regimen (losartan 25) resumed -BP 150s in office last week--currently controlled here -no amlodipine (edema) -no AVN blockers, including clonidine (asymptomatic SN dysfunction on event monitor--would need PPM to enable safe use this class of meds) -no hydral (prior positive anti-histone Ab/? drug induced SLE) -prefer to defer thiazide for now, given prior atypical creatinine behavior ( ditto for spironolactone) -observe BP trend--if rises, will start ARB With close f/u of renal fxn appendix mass: -GI/surgical eval -no cardiac contraindications to colonoscopy. eliquis should be held 2 days prior. can dc tele
[2018-11-07 12:39] VITALS: BMI 20.2
--- NOTE | 2018-11-07 14:27 | PN ---
Progress Note (short form) - Note Progress Note: PULMONARY ALERT,SITTING UP IN BED,SOB SUBJECTIVE IMPROVEMENT VSS/AFEBRILE Eyes: Yes: WNL HENT: Yes: WNL Neck: Yes: WNL Cardiovascular: Yes: Pulse Irregular, S1, S2 Respiratory: Yes: Diminished Gastrointestinal: Yes: Normal Bowel Sounds, Soft Extremities: Yes: WNL Edema: Yes Labs/meds/notes/images reviewed ASSESSMENT AND PLAN: Hyperosmolar Hyperglycemic Nonketotic State improved Severe Pulmonary HTN Previous history of Hydralazine induced lupus syndrome Paroxysmal Atrial Fibrillation with RVR Lactic Acidosis r/o Ischemic Bowel HTN CKD Asthma Previous OSAS ruled out RLL rounded mass ?PNA ,? malignant - BD TX PRN - glucose control - rate controlled - anticoagulation - Will need outpatient follow up to document resolution of RLL process ,if no change PET CT Alfie MANCINI MD
--- NOTE | 2018-11-07 14:54 | PN ---
GI Progress Note Subjective: No acute events No abdominal pain UGIS not performed today: patient's breakfast was never held - Objective Vital Signs: Vital Signs Temperature 97.7 F 11/07/18 09:51 Pulse Rate 72 11/07/18 09:51 Respiratory Rate 16 11/07/18 09:51 Blood Pressure 130/76 11/07/18 09:51 O2 Sat by Pulse Oximetry (%) 100 11/07/18 09:00 Constitutional: Calm Eyes: No: Sclera Icterus Cardiovascular: Yes: Regular Rate and Rhythm Respiratory: Yes: CTA Bilaterally Gastrointestinal Inspection: No: Distention ...Auscultate: Yes: Normoactive Bowel Sounds ...Palpate: Yes: Tenderness (Mild TTP RLQ) ...Percussion: No: Tympanitic ...Rectal Exam: Yes: Other (No masses, light zuñiga stool in rectal vault, guaiac negative.) Edema: Yes Neurological: Yes: Alert Labs: CBC, BMP 11/07/18 05:30 11/07/18 05:30 INR, PTT INR 0.98 (0.83-1.09) 10/31/18 18:39 Hepatic Panel Total Bilirubin 0.3 mg/dL (0.2-1) 11/05/18 05:30 AST 39 U/L (15-37) H 11/05/18 05:30 ALT 53 U/L (13-61) 11/05/18 05:30 Alkaline Phosphatase 176 U/L (45-117) H 11/05/18 05:30 Albumin 1.3 g/dl (3.4-5.0) L 11/05/18 05:30 Problem List - Problems (1) Abnormal CT of the abdomen Assessment/Plan: UGIS not performed today as floor did not hold breakfast Plan for EGD on saturday to further evaluate gastric wall edema noted on CT scan. Discussed potential risks of the procedure like but not limited to bleeding, perforation requiring surgery to repair, infection sedation medication effects all of which could be potentially life threatening. She has agreed to the procedure. Read Cardiology evaluation. Will hold Eliquis tomorrow. Had conversation with ID, Dr. Mckeon. She explained to me that prior to GI being consulted, Ms. Saravia did complain of right sided abdominal discomfort that seemed to improve after initiation of antibiotics. Given the dilated tip of the appendix, she was concerned for possible appendicitis. On exam today, Ms. Saravia does have mild TTP in the RLQ. She is opting to treat this medically with Abx. Given this concern, will defer colonoscopy until antibiorics are completed. This can be pursued as an outpatient. CEA elevated. Will need further evaluation. I explained this to Ms. Saravia. Code(s): R93.5 - ABN FINDINGS ON DX IMAGING OF ABD REGIONS, INC RETROPERITON (2) Abnormal liver function tests Assessment/Plan: Hepatitis C antibody ordered today for AM Other recommendations as noted in initial consult D/C'd tylenol Monitor LFTs Code(s): R94.5 - ABNORMAL RESULTS OF LIVER FUNCTION STUDIES (3) Anemia Assessment/Plan: Macrocytic, guaiac negative on JOHN and from specimen sent previously Plan as above re: timing of colonoscopy. Will need to evaluate for elevated CEA as well w/u per primary team Code(s): D64.9 - ANEMIA, UNSPECIFIED Qualifiers: Anemia type: unspecified type Qualified Code(s): D64.9 - Anemia, unspecified (4) Lung mass Code(s): R91.8 - OTHER NONSPECIFIC ABNORMAL FINDING OF LUNG FIELD
[2018-11-07] MEDS ORDERED: INSULIN (NOVOLOG) ASPART 100 UNITS/ML 10ML VIAL ONE (16:40)
--- NOTE | 2018-11-07 18:25 | PN ---
Teaching Attending Note Name of Resident: Presley Flores ATTENDING PHYSICIAN STATEMENT I saw and evaluated the patient. I reviewed the resident's note and discussed the case with the resident. I agree with the resident's findings and plan as documented. SUBJECTIVE: No fever or chills . No abd pain. no OCAMPO . no SOB OBJECTIVE: NAD, cooperative CV: RRR, no MRG Lungs: CTAB Abd: soft, Nt, Nd, NL BS. 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 1- HHS: resolved. hypoglycemia resolved. A1c 14 - increase levemir - cont SSI TIDAC 2- Possible PNA, with R LL mass, and multiple other lung nodules . - 2 more days of zosyn - need further w/u for those nodules, Mets vs. primary. PET scan as out p t 3- Appendix mass: ? appendicitis . - cont Abx - no surgical intervention - colo as out pt 4- gastric edema: EGD on saturday hold eliquis tomorrow 6- A fib: cont eliquis ( hold as above ). No AV bushra blockers due to possible SSS 7- LE edema: has chronic R sided heart failure, hypoalbuminemia and was on norvasc. - cont to hold norvasc - cont home lasix 20 BID - follow wait , incontinent 8- HTN: BP nl off Norvasc. can't use BB/CCB, hydralazine and try to avoid HCTZ. - start low dose losartan 9- H/o COPD: cont chronic home dose prednisone 10 -Transaminitis: follow LFTs. MRCP if not improving Hepatits serology reviewed. not immune to Hep B. will offer vaccine will follow Hep c Abs 11- anemia: anemia of chronic dz. HLOC ASSESSMENT AND PLAN:
--- NOTE | 2018-11-07 20:22 | PN ---
Physical Exam: SUBJECTIVE: Patient seen and examined at bedside. No acute events overnight. Denies shortness of breath or chest pain. Eating breakfast. OBJECTIVE: Vital Signs Period Temp Pulse Resp BP Sys/Red Pulse Ox Last 24 Hr 97.5 F-98.2 F 72-90 16-24 122-143/64-92 95-100 GENERAL:No acute distress. Alert and Oriented x 3 HEAD: Atraumatic/Normocephalic EYES: EOMI Sclera Clear ENT: MMM NECK: Supple. LUNGS: decreased Breath sounds at bases HEART: Irregular, S1S2 ABDOMEN: No guarding or rigidity. Soft Nondistended. EXTREMITIES: 3+ pitting edema b/l. Unchanged from yesterday. PSYCH: Normal mood, normal affect. SKIN: Warm, dry, normal turgor, no rashes or lesions noted Laboratory Results - last 24 hr 11/06/18 11/06/18 11/06/18 06:00 06:00 20:56 WBC RBC Hgb Hct MCV MCH MCHC RDW Plt Count MPV Sodium Potassium Chloride Carbon Dioxide Anion Gap BUN Creatinine Creat Clearance w eGFR POC Glucometer 239 Random Glucose Calcium Phosphorus Magnesium Iron 31 TIBC 95 L Iron Saturation 33 GGT Carcinoembryonic Ag 10.2 H 11/07/18 11/07/18 11/07/18 05:30 05:30 05:38 WBC 8.8 RBC 2.95 L Hgb 9.7 L Hct 28.4 L MCV 96.3 H MCH 32.8 MCHC 34.1 RDW 13.7 Plt Count 178 D MPV 9.9 Sodium 138 Potassium 4.0 Chloride 102 Carbon Dioxide 31 Anion Gap 5 L BUN 12 Creatinine 0.6 Creat Clearance w eGFR > 60 POC Glucometer 151 Random Glucose 175 H Calcium 7.8 L Phosphorus 2.1 L Magnesium 2.1 Iron TIBC Iron Saturation GGT 173 H Carcinoembryonic Ag 11/07/18 11/07/18 10:10 16:44 WBC RBC Hgb Hct MCV MCH MCHC RDW Plt Count MPV Sodium Potassium Chloride Carbon Dioxide Anion Gap BUN Creatinine Creat Clearance w eGFR POC Glucometer 254 204 Random Glucose Calcium Phosphorus Magnesium Iron TIBC Iron Saturation GGT Carcinoembryonic Ag Active Medications Generic Name Dose Route Start Last Admin Trade Name Freq PRN Reason Stop Dose Admin Apixaban 5 mg 11/07/18 22:00 Eliquis - PO BID ANITA Furosemide 20 mg 11/07/18 16:45 11/07/18 16:44 Lasix - PO 20 mg BID@0600,1400 ANITA Administration Piperacillin Sod/Tazobactam 50 mls @ 100 mls/hr 11/07/18 18:00 11/07/18 18:08 Sod 3.375 gm/ Dextrose IVPB 100 mls/hr Q8H-IV ANITA Administration Protocol Insulin Aspart 1 vial 11/07/18 16:30 11/07/18 16:47 Novolog Vial Sliding Scale - SQ 4 units TIDAC ANITA Administration Protocol Insulin Detemir 7 units 11/08/18 07:00 Levemir Vial SQ DAILY@0700 ANITA Losartan Potassium 25 mg 11/08/18 10:00 Cozaar - PO DAILY ANITA Pantoprazole Sodium 20 mg 11/08/18 10:00 Protonix - PO DAILY ANITA Prednisone 20 mg 11/07/18 22:00 Deltasone - PO BID ANITA Valacyclovir HCl 500 mg 11/07/18 22:00 Valtrex - PO BID [facility] ASSESSMENT/PLAN: 73 y/o F with PMHx of HTN, HLD, NIDDM, Afib (on Eliquis), CKD who was admitted for [facility] and transferred to ICU after an episode of Hypoglycemia. #Right LL Pulmonary Mass/Pneumonia? (1.7cm x1.9cm noted on CT abdomen) -Oncology on board---> Dr Clayton/Dr Wild---> get PET CT, non contrast chest CT to eval lungs gamboa. -hemoglobin electrophoreisis pending Albumin/Globulin gradient being <1; Myelodysplastic syndrome work-up per Dr Clayton/Junito -Will require outpatient follow-up -Zosyn day 5, I.V fluids -I.D on board. Blood/Urine cultures Negative. #Gastric Wall Edema Dr Gould on board Plan for EGD on saturday to further evaluate gastric wall edema noted on CT scan. Will defer Colonoscopy until Saturday per GI Will hold Eliquis tomorrow in light of planned EGD Saturday. # Hyperosmolar hyperglycemic state - Will recheck BGM > 200 in am. Lantus increased to 7 Units. 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 CTAP--> Gastric Edema. May be infectious/inflammatory. -Upper GI Series in AM #Worsening LE edema: Hold of Amlodipine. Lasix resumed. Will start ARB if renal function wnl tomorrow #Tropenemia: Most likely 2/[address] cardi[address] Mcnair on board #CKD : Bun/Cr 10/0.6. 44/1.7 on admission Nephrology consulted--> Dr Perez #Atrial Fibrillation - Eliqiuis 5 mg po BID #HTN Lasix resumed as renal function wnl -will hold amlodipine in setting of worsening LE edema - ARB started. losartan 25 mg po Daily #FEN: No fluids Monitor Electrolytes Diabetic Diet DVT ppx: on eliquis Visit type - Emergency Visit Emergency Visit: Yes ED Registration Date: 10/31/18 Care time: The patient presented to the Emergency Department on the above date and was hospitalized for further evaluation of their emergent condition. - New Patient This patient is new to me today: No - Critical Care Critical Care patient: No - Discharge Referral Referred to [facility] Med P.C.: No
[2018-11-07] MEDS ORDERED: PT OWN MED DRAWER 7, Y5N ONE (20:53)
[2018-11-07] MEDS ORDERED: APIXABAN 5 MG TABLET PO SCH (22:00)
[2018-11-08] MEDS ORDERED: PIPERACILLIN/TAZOBACTAM 3.375 GM VIAL IVPB ONE ×3 (00:21→17:31)
[2018-11-08] MEDS ORDERED: DEXTROSE 5%-WATER - 50 ML IVPB ONE ×3 (00:22→17:31)
[2018-11-08] MEDS: PIPERACILLIN/TAZOB 3.375 GM 3.375 GM in DEXTROSE 5%-WATER - 50 ML IVPB SCH ×3 (01:50→17:55)
[2018-11-08] MEDS: FUROSEMIDE 20 MG TABLET (FP) PO SCH ×2 (06:35→15:12)
[2018-11-08] MEDS: INSULIN SLIDING SCALE (NOVOLOG) 1 VIAL SQ SCH ×3 (06:36→17:30)
[2018-11-08] MEDS ORDERED: INSULIN (LEVEMIR) 100 UNITS/ML UNITS SQ SCH ×2 (07:00)
[2018-11-08 07:57] LABS: HEMATOCRIT 27.9 % (32.4-45.2); HEMOGLOBIN 9.6 GM/dL (10.7-15.3); MCHC 34.3 g/dl (32.0-36.0); MEAN CELL VOLUME 96.3 fl (80-96); MEAN PLT VOLUME 9.1 fl (7.5-11.1); PLATELET COUNT 221 K/MM3 (134-434); RDW 13.4 % (11.6-15.6); WHITE BLOOD COUNT 9.4 K/mm3 (4.0-10.0)
[2018-11-08 08:29] LABS: ALBUMIN 1.5 g/dl (3.4-5.0); ALK PHOS 161 U/L (45-117); ANION GAP 6 MMOL/L (8-16); BILIRUBIN,DIRECT 0.1 mg/dL (0.0-0.2); BILIRUBIN,TOTAL 0.2 mg/dL (0.2-1); BLOOD UREA NITROGEN 14 mg/dL (7-18); CALCIUM 7.6 mg/dL (8.5-10.1); CHLORIDE 100 mmol/L (98-107); CO2 32 mmol/L (21-32); CREATININE 0.7 mg/dL (0.55-1.3); GLUCOSE,RANDOM 210 mg/dL (74-106); MAGNESIUM 1.8 mg/dL (1.8-2.4); POTASSIUM 3.3 mmol/L (3.5-5.1); SGOT/AST 28 U/L (15-37); SGPT/ALT 53 U/L (13-61); SODIUM 138 mmol/L (136-145); TOT PROT 4.8 g/dl (6.4-8.2)
[2018-11-08] MEDS: LOSARTAN POTASSIUM 25 MG TABLET PO SCH (09:31)
[2018-11-08] MEDS: predniSONE 20 MG TABLET (UD) PO SCH ×2 (09:31→21:26)
[2018-11-08] MEDS: PANTOPRAZOLE 20 MG TABLET (FP) PO SCH (09:31)
[2018-11-08] MEDS: valACYclovir HCL 500 MG TABLET (FP) PO SCH ×2 (09:31→21:26)
[2018-11-08] MEDS ORDERED: POTASSIUM CHLORIDE TABS 20 MEQ TABLET.ER (FP) PO ONE (10:00)
--- NOTE | 2018-11-08 12:01 | PN ---
Progress Note (short form) - Note Progress Note: s: stable edema, sob. no chest pain, palps Current Medications Apixaban (Eliquis -) [address] [facility] Last Admin: 11/07/18 21:06 Dose: 5 mg Furosemide (Lasix -) 20 mg PO BID@0600,1400 [facility] Last Admin: 11/08/18 06:35 Dose: 20 mg Piperacillin Sod/Tazobactam (Sod 3.375 gm/ Dextrose) 50 mls @ 100 mls/hr IVPB Q8H-IV [facility]; Protocol Last Admin: 11/08/18 09:31 Dose: 100 mls/hr Insulin Aspart (Novolog Vial Sliding Scale -) [address] [facility]; Protocol Last Admin: 11/08/18 06:36 Dose: 2 units Insulin Detemir (Levemir Vial) 7 units SQ DAILY@0700 [facility] Last Admin: 11/08/18 06:35 Dose: 7 units Losartan Potassium (Cozaar -) [address] [facility] Last Admin: 11/08/18 09:31 Dose: 25 mg Pantoprazole Sodium (Protonix -) [address] [facility] Last Admin: 11/08/18 09:31 Dose: 20 mg Prednisone (Deltasone -) [address] [facility] Last Admin: 11/08/18 09:31 Dose: 20 mg Valacyclovir HCl (Valtrex -) [address] [facility] Last Admin: 11/08/18 09:31 Dose: 500 mg Constitutional: Yes: No Distress, Calm Eyes: No: Sclera Icterus HENT: No: Nasal Congestion Cardiovascular: Yes: Regular Rate and Rhythm, Murmur (VEY at LSB), S1, S2, Other (PMI non diplaced). No: JVD, Gallop Respiratory: Yes: CTA Bilaterally. No: Accessory Muscle Use Gastrointestinal: Yes: Normal Bowel Sounds, Soft, nt Extremities: No: Cold Edema: Yes (trace LEs) Integumentary: No: Jaundice Neurological: Yes: Alert, Oriented (x3) Psychiatric: No: Agitated Assessment/Plan ECG: NSR with APCs, normal intervals/axis. inc RBBB. nonsp TWAs (no change vs ) CXR: enlarged heart (unchanged vs 05/2018). clear lungs/pleura LE edema: -suspect etiology is venous insufficiency and CCB effect > right sided CHF -JV pressure appears normal, and she has had no sob or signif hypoxia -edema improves with leg elevation -continue holding amlodipine -start SHAHID stockings -cont with po lasix severe pulm HTN with chronic right-sided CHF, severe TR: -etiology unknown--no signs CTEPH on V/Q, no [id number] shunt on CTA (cannot tolerate MRI-claustrophobia), no signs L sided diast CHF clinically and on stress echo. pt refused definitive assessment with RHC -BNP 800 (2K prior) -had been well-compensated and clinically euvolemic, NYHA III (1 flight of stairs) for long time -suspect edema is venous insy/ccb effect--much improved here off amlodipine with leg elevation. holding lasix -sats ok here, renal fxn stable, no signs hepatic congestion. do not suspect decompensated R heart failure, as disc'd above paroxysmal AFib, PAT: -rare episodes on event monitor and stress test -no standing AVN blockers given sinus node dysfunction on prior event monitor -no standing AVN blockers. cont tele, rate stable -holding eliquis for EGD on Saturday DM with hyperosmolar/hyperglycemic state, no mental status changes: -A1c 14 -glycemia tx per primary HTN: -historically labile bp goes very hi when med lapses -was controlled on amlodipine, ARB long time -ARB held for ANNA--much lower potency regimen (losartan 25) resumed -BP 150s in office last week--currently controlled here -no amlodipine (edema) -no AVN blockers, including clonidine (asymptomatic SN dysfunction on event monitor--would need PPM to enable safe use this class of meds) -no hydral (prior positive anti-histone Ab/? drug induced SLE) -prefer to defer thiazide for now, given prior atypical creatinine behavior ( ditto for spironolactone) -losartan restarted, monitor BP and Cr appendix mass: -GI/surgical eval -no cardiac contraindications to EGD/colonoscopy. holding eliquis
--- NOTE | 2018-11-08 13:35 | PN ---
Teaching Attending Note Name of Resident: Presley Flores ATTENDING PHYSICIAN STATEMENT I saw and evaluated the patient. I reviewed the resident's note and discussed the case with the resident. I agree with the resident's findings and plan as documented. SUBJECTIVE: no fever , no chills, feels better. No SOB OBJECTIVE: NAD, cooperative CV: RRR, no MRG Lungs: CTAB Abd: soft, NT, Nd, NL BS. Ext: no 2+ edema both legs ASSESSMENT AND PLAN: 73yo female with PMHx of pulmonary HTN, R sided heart failure, P a fib,severe TR, A-fib (on eliquis), sinus node dysfunciton , Hydralazine induced lupus, DM , pulm HTN, nephrotic syndrome due to focal glmerulosclerosis, who presented with worsening LE edema and was found to have HHS. 1- HHS: resolved. hypoglycemia resolved. A1c 14 - increase levemir for tomorrow to 12 units - cont SSI TIDAC. 2- Possible PNA, with R LL mass, and multiple other lung nodules. - one more day of zosyn - need further w/u for those nodules, Mets vs. primary. PET scan as out pt 3- Appendix mass: ? appendicitis . - cont Abx - no surgical intervention - colo as out pt/elevated CEA per GI note 4- Gastric edema: EGD on saturday hold eliquis today . she is aware of the risk of stroke off eliquis 6- A fib:hold AC . No AV bushra blockers due to possible SSS 7- LE edema: has chronic R sided heart failure, hypoalbuminemia and was on norvasc. - cont to hold norvasc - cont home lasix 20 BID - follow wait , incontinent 8- HTN: BP nl off Norvasc. can't use BB/CCB, hydralazine and try to avoid HCTZ. - cont losartan 9- H/o COPD: cont chronic home dose prednisone 10 -Transaminitis: follow LFTs.cont to improve Not immune to Hep B. she agrees to first dose of hep B vaccine in house will follow Hep c Abs 11- anemia: anemia of chronic dz. HLOC ASSESSMENT AND PLAN:
[2018-11-08] MEDS ORDERED: HEPATITIS B VIRUS VACCINE-PF 20 MCG/1ML PRE-FILLED SYRINGE IM ONE (13:38)
[2018-11-08] MEDS ORDERED: PT OWN MED DRAWER 7, Y5N ONE (15:02)
--- NOTE | 2018-11-08 15:20 | PN ---
Physical Exam: SUBJECTIVE: Patient seen and examined at bedside. No acute events overnight. OBJECTIVE: Vital Signs Period Temp Pulse Resp BP Sys/Red Pulse Ox Last 24 Hr 97.4 F-97.9 F 68-90 18-24 128-159/60-78 100 GENERAL:Alert and Oriented. Pleasant HEAD: Atraumatic/Normocephalic EYES: EOMI Sclera Clear ENT: MMM NECK: Supple. LUNGS: decreased Breath sounds at bases HEART: Irregular, S1S2 ABDOMEN: No guarding or rigidity. Soft Nondistended. EXTREMITIES: 2+ pitting edema today. Down from 3+ yesterday PSYCH: Normal mood, normal affect. SKIN: Warm, dry, normal turgor, no rashes or lesions noted Laboratory Results - last 24 hr 11/07/18 11/08/18 11/08/18 16:44 06:30 06:30 WBC 9.4 RBC 2.90 L Hgb 9.6 L Hct 27.9 L MCV 96.3 H MCH 33.0 MCHC 34.3 RDW 13.4 Plt Count 221 D MPV 9.1 Sodium 138 Potassium 3.3 L Chloride 100 Carbon Dioxide 32 Anion Gap 6 L BUN 14 Creatinine 0.7 Creat Clearance w eGFR > 60 POC Glucometer 204 Random Glucose 210 H Calcium 7.6 L Phosphorus 2.0 L Magnesium 1.8 Total Bilirubin 0.2 Direct Bilirubin 0.1 AST 28 ALT 53 Alkaline Phosphatase 161 H Total Protein 4.8 L Albumin 1.5 L 11/08/18 11/08/18 06:34 10:21 WBC RBC Hgb Hct MCV MCH MCHC RDW Plt Count MPV Sodium Potassium Chloride Carbon Dioxide Anion Gap BUN Creatinine Creat Clearance w eGFR POC Glucometer 178 366 Random Glucose Calcium Phosphorus Magnesium Total Bilirubin Direct Bilirubin AST ALT Alkaline Phosphatase Total Protein Albumin Active Medications Generic Name Dose Route Start Last Admin Trade Name Freq PRN Reason Stop Dose Admin Apixaban 5 mg 11/07/18 22:00 11/07/18 21:06 Eliquis - PO 5 mg BID ANITA Administration Furosemide 20 mg 11/07/18 16:45 11/08/18 06:35 Lasix - PO 20 mg BID@0600,1400 AN[facility] Administration Piperacillin Sod/Tazobactam 50 mls @ 100 mls/hr 11/07/18 18:00 11/08/18 09:31 Sod 3.375 gm/ Dextrose IVPB 100 mls/hr Q8H-IV [facility] Administration Protocol Insulin Aspart 1 vial 11/07/18 16:30 11/08/18 12:25 Novolog Vial Sliding Scale - SQ 10 units TIDAC ANITA Administration Protocol Insulin Detemir 12 units 11/09/18 07:00 Levemir Vial SQ DAILY@0700 [facility] Losartan Potassium 25 mg 11/08/18 10:00 11/08/18 09:31 Cozaar - PO 25 mg DAILY [facility] Administration Pantoprazole Sodium 20 mg 11/08/18 10:00 11/08/18 09:31 Protonix - PO 20 mg DAILY [facility] Administration Prednisone 20 mg 11/07/18 22:00 11/08/18 09:31 Deltasone - PO 20 mg BID ANITA Administration Valacyclovir HCl 500 mg 11/07/18 22:00 11/08/18 09:31 Valtrex - PO 500 mg BID [facility] Administration ASSESSMENT/PLAN: 73 y/o F with PMHx of HTN, HLD, NIDDM, Afib (on Eliquis), CKD who was admitted for [facility] and transferred to ICU after an episode of Hypoglycemia. #Right LL Pulmonary Mass/Pneumonia? (1.7cm x1.9cm noted on CT abdomen) -Oncology on board---> Dr Clayton/Dr Wild---> get PET CT, non contrast chest CT to eval lungs gamboa. -hemoglobin electrophoreisis pending Albumin/Globulin gradient being <1; Myelodysplastic syndrome work-up per Dr Clayton/Junito -Will require outpatient follow-up -Zosyn day 6, I.V fluids -I.D on board. Blood/Urine cultures Negative. #Gastric Wall Edema Dr Gould on board Plan for EGD on saturday to further evaluate gastric wall edema noted on CT scan. Will defer Colonoscopy until Saturday per GI Eliquis held in light of planned EGD Saturday. # Hyperosmolar hyperglycemic state - Will recheck BGM > 200 in am. 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 CTAP--> Gastric Edema. Dr Joyner on board: " clinically asymptomatic. Very low index of suspicion for acute appendicitis and or neoplasm. No acute surgical intervention indicated. Recommends PO and I.V CTAP in 3 months. #Worsening LE edema: Hold of Amlodipine. Lasix resumed. Will start ARB if renal function wnl tomorrow #Tropenemia: Most likely 2/[address] Mcnair on board #CKD : Bun/Cr 14/0.7. 44/1.7 on admission Nephrology consulted--> Dr Perez #Atrial Fibrillation - Eliqiuis 5 mg po BID--- On hold #HTN Lasix resumed as renal function wnl -will hold amlodipine in setting of worsening LE edema -losartan 25 mg po Daily #FEN: No fluids Monitor Electrolytes Diabetic Diet DVT ppx: eliquis on hold Visit type - Emergency Visit Emergency Visit: Yes ED Registration Date: 10/31/18 Care time: The patient presented to the Emergency Department on the above date and was hospitalized for further evaluation of their emergent condition. - New Patient This patient is new to me today: No - Critical Care Critical Care patient: No - Discharge Referral Referred to [facility] Med P.C.: No
--- NOTE | 2018-11-08 15:29 | PN ---
Progress Note (short form) - Note Progress Note: PULMONARY ALERT,SITTING UP IN BED,SOB SUBJECTIVE IMPROVEMENT VSS/AFEBRILE Eyes: Yes: WNL HENT: Yes: WNL Neck: Yes: WNL Cardiovascular: Yes: Pulse Irregular, S1, S2 Respiratory: Yes: Diminished Gastrointestinal: Yes: Normal Bowel Sounds, Soft Extremities: Yes: WNL Edema: Yes Labs/meds/notes/images reviewed ASSESSMENT AND PLAN: Hyperosmolar Hyperglycemic Nonketotic State improved Severe Pulmonary HTN Previous history of Hydralazine induced lupus syndrome Paroxysmal Atrial Fibrillation with RVR Lactic Acidosis r/o Ischemic Bowel HTN CKD Asthma Previous [facility] ruled out RLL rounded mass ?PNA ,? malignant - BD TX PRN - glucose control - rate controlled - Will need outpatient follow up to document resolution of RLL process ,if no change PET CT - I have given the patient a copy of her ct chest to give to her primary after discharge to ensure follow up of the lung densities - OK for egd on Saturday Alfie MANCINI MD
[2018-11-09] MEDS ORDERED: PIPERACILLIN/TAZOBACTAM 3.375 GM VIAL IVPB ONE ×3 (01:30→17:28)
[2018-11-09] MEDS ORDERED: DEXTROSE 5%-WATER - 50 ML IVPB ONE ×3 (01:31→17:28)
[2018-11-09] MEDS: PIPERACILLIN/TAZOB 3.375 GM 3.375 GM in DEXTROSE 5%-WATER - 50 ML IVPB SCH ×3 (01:43→17:43)
[2018-11-09] MEDS: FUROSEMIDE 20 MG TABLET (FP) PO SCH ×2 (07:01→14:58)
[2018-11-09] MEDS: INSULIN SLIDING SCALE (NOVOLOG) 1 VIAL SQ SCH ×3 (07:03→17:42)
[2018-11-09] MEDS: INSULIN (LEVEMIR) 100 UNITS/ML UNITS SQ SCH (07:03)
[2018-11-09 08:22] LABS: HEMATOCRIT 28.8 % (32.4-45.2); HEMOGLOBIN 9.8 GM/dL (10.7-15.3); MCH 33.1 pg (25.7-33.7); MCHC 34.2 g/dl (32.0-36.0); MEAN CELL VOLUME 96.8 fl (80-96); MEAN PLT VOLUME 8.9 fl (7.5-11.1); PLATELET COUNT 252 K/MM3 (134-434); RBC 2.97 M/mm3 (3.60-5.2); RDW 13.8 % (11.6-15.6); WHITE BLOOD COUNT 8.8 K/mm3 (4.0-10.0)
[2018-11-09 08:55] LABS: ANION GAP 3 MMOL/L (8-16); BLOOD UREA NITROGEN 16 mg/dL (7-18); CHLORIDE 98 mmol/L (98-107); CO2 36 mmol/L (21-32); CREATININE 0.8 mg/dL (0.55-1.3); GLUCOSE,RANDOM 227 mg/dL (74-106); MAGNESIUM 1.7 mg/dL (1.8-2.4); PHOSPHOROUS 2.2 mg/dL (2.5-4.9); POTASSIUM 4.2 mmol/L (3.5-5.1); SODIUM 137 mmol/L (136-145)
[2018-11-09] MEDS ORDERED: PT OWN MED DRAWER 7, Y5N ONE (10:09)
[2018-11-09] MEDS: predniSONE 20 MG TABLET (UD) PO SCH ×2 (10:13→21:44)
[2018-11-09] MEDS: valACYclovir HCL 500 MG TABLET (FP) PO SCH ×2 (10:13→21:44)
[2018-11-09] MEDS: PANTOPRAZOLE 20 MG TABLET (FP) PO SCH (10:13)
[2018-11-09] MEDS: LOSARTAN POTASSIUM 25 MG TABLET PO SCH (10:13)
--- NOTE | 2018-11-09 11:25 | PN ---
Progress Note (short form) - Note Progress Note: s: stable edema, no sob. no chest pain, palps Current Medications Apixaban (Eliquis -) 5 mg PO BID [facility] Last Admin: 11/07/18 21:06 Dose: 5 mg Furosemide (Lasix -) 20 mg PO BID@0600,1400 [facility] Last Admin: 11/09/18 07:01 Dose: 20 mg Piperacillin Sod/Tazobactam (Sod 3.375 gm/ Dextrose) 50 mls @ 100 mls/hr IVPB Q8H-IV [facility]; Protocol Last Admin: 11/09/18 10:13 Dose: 100 mls/hr Insulin Aspart (Novolog Vial Sliding Scale -) 1 vial SQ TIDAC [facility]; Protocol Last Admin: 11/09/18 07:03 Dose: 4 units Insulin Detemir (Levemir Vial) 12 units SQ DAILY@0700 [facility] Last Admin: 11/09/18 07:03 Dose: 12 units Losartan Potassium (Cozaar -) 25 mg PO DAILY [facility] Last Admin: 11/09/18 10:13 Dose: 25 mg Pantoprazole Sodium (Protonix -) 20 mg PO DAILY [facility] Last Admin: 11/09/18 10:13 Dose: 20 mg Prednisone (Deltasone -) 20 mg PO BID [facility] Last Admin: 11/09/18 10:13 Dose: 20 mg Valacyclovir HCl (Valtrex -) 500 mg PO BID [facility] Last Admin: 11/09/18 10:13 Dose: 500 mg Vital Signs Period Temp Pulse Resp BP Sys/Red Pulse Ox Last 24 Hr 97.4 F-98.1 F 61-78 18-20 132-163/60-76 100 Constitutional: Yes: No Distress, Calm Eyes: No: Sclera Icterus HENT: No: Nasal Congestion Cardiovascular: Yes: Regular Rate and Rhythm, Murmur (EVY at LSB), S1, S2, Other (PMI non diplaced). No: JVD, Gallop Respiratory: Yes: CTA Bilaterally. No: Accessory Muscle Use Gastrointestinal: Yes: Normal Bowel Sounds, Soft, nt Extremities: No: Cold Edema: Yes (trace LEs) Integumentary: No: Jaundice Neurological: Yes: Alert, Oriented (x3) Psychiatric: No: Agitated Assessment/Plan ECG: NSR with APCs, normal intervals/axis. inc RBBB. nonsp TWAs (no change vs ) CXR: enlarged heart (unchanged vs 05/2018). clear lungs/pleura LE edema: -suspect etiology is venous insufficiency and CCB effect > right sided CHF -JV pressure appears normal, and she has had no sob or signif hypoxia -edema improves with leg elevation -continue holding amlodipine -start SHAHID stockings -cont with po lasix severe pulm HTN with chronic right-sided CHF, severe TR: -etiology unknown--no signs CTEPH on V/Q, no [id number] shunt on CTA (cannot tolerate MRI-claustrophobia), no signs L sided diast CHF clinically and on stress echo. pt refused definitive assessment with RHC -BNP 800 (2K prior) -had been well-compensated and clinically euvolemic, NYHA III (1 flight of stairs) for long time -suspect edema is venous insy/ccb effect--much improved here off amlodipine with leg elevation. holding lasix -sats ok here, renal fxn stable, no signs hepatic congestion. do not suspect decompensated R heart failure, as disc'd above paroxysmal AFib, PAT: -rare episodes on event monitor and stress test -no standing AVN blockers given sinus node dysfunction on prior event monitor -no standing AVN blockers. cont tele, rate stable -holding eliquis for EGD on Saturday DM with hyperosmolar/hyperglycemic state, no mental status changes: -A1c 14 -glycemia tx per primary HTN: -historically labile bp goes very hi when med lapses -was controlled on amlodipine, ARB long time -ARB held for ANNA--much lower potency regimen (losartan 25) resumed -BP 150s in office last week--currently controlled here -no amlodipine (edema) -no AVN blockers, including clonidine (asymptomatic SN dysfunction on event monitor--would need PPM to enable safe use this class of meds) -no hydral (prior positive anti-histone Ab/? drug induced SLE) -prefer to defer thiazide for now, given prior atypical creatinine behavior ( ditto for spironolactone) -losartan restarted, monitor BP and Cr appendix mass: -GI/surgical eval -no cardiac contraindications to EGD/colonoscopy. holding eliquis
[2018-11-09] MEDS ORDERED: NAPH,MB-DB/K PH,MBDB POWDER PACKET PO ONE (13:54)
[2018-11-09] MEDS ORDERED: MAGNESIUM SULF 50% (8.12 MEQ/2 ML-1 GM VIAL) IVPB ONE (13:54)
[2018-11-09] MEDS ORDERED: LOSARTAN POTASSIUM 50 MG TABLET (FP) PO SCH (13:59)
--- NOTE | 2018-11-09 14:04 | PN ---
Progress Note (short form) - Note Progress Note: Subjective: No fever or chills . No abd pain, no OCAMPO , no SOB Objective: Vital Signs: Last Vital Signs Temp Pulse Resp BP Pulse Ox 98.1 F 72 20 144/74 100 11/09/18 09:16 11/09/18 09:16 11/09/18 09:16 11/09/18 09:16 11/09/18 10:00 Laboratory Results - last 24 hr 11/08/18 11/09/18 11/09/18 16:40 07:00 07:00 WBC 8.8 RBC 2.97 L Hgb 9.8 L Hct 28.8 L MCV 96.8 H MCH 33.1 MCHC 34.2 RDW 13.8 Plt Count 252 MPV 8.9 Sodium 137 Potassium 4.2 Chloride 98 Carbon Dioxide 36 H Anion Gap 3 L BUN 16 Creatinine 0.8 Creat Clearance w eGFR > 60 POC Glucometer 129 Random Glucose 227 H Calcium 8.0 L Phosphorus 2.2 L Magnesium 1.7 L 11/09/18 11/09/18 07:02 11:27 WBC RBC Hgb Hct MCV MCH MCHC RDW Plt Count MPV Sodium Potassium Chloride Carbon Dioxide Anion Gap BUN Creatinine Creat Clearance w eGFR POC Glucometer 221 283 Random Glucose Calcium Phosphorus Magnesium Physical Exam: NAD, cooperative CV: RRR, no MRG Lungs: CTAB Abd: soft, NT, Nd, NL BS. Ext: no 2+ edema both legs. improved ASSESSMENT AND PLAN: 73yo female with PMHx of pulmonary HTN, R sided heart failure, P a fib,severe TR, A-fib (on eliquis), sinus node dysfunciton , Hydralazine induced lupus, DM , pulm HTN, nephrotic syndrome due to focal glmerulosclerosis, who presented with worsening LE edema and was found to have HHS. 1- HHS: resolved. -Levemir 12 units dialy - cont SSI TIDAC. 2- Possible PNA, with R LL mass, and multiple other lung nodules. - last day of zosyn today - need further w/u for those nodules, Mets vs. primary. PET scan as out pt - need repeat Ct scan of chest in few weeks 3- Appendix mass: ? appendicitis . - Abx - no surgical intervention - colo as out pt/elevated CEA per GI note 4- Gastric edema: EGD tomorrow make NPO after MN, eliquis on hold 6- A fib:hold AC . No AV bushra blockers due to possible SSS 7- LE edema: has chronic R sided heart failure, hypoalbuminemia and was on norvasc. - cont to hold norvasc - cont home lasix 20 BID - monitor and replete electrolytes ( hypomagnesemia and hypokalemia ) 8- HTN: BP nl off Norvasc. can't use BB/CCB, hydralazine and try to avoid HCTZ. - cont and increase losartan ( sBP in 160s ) 9- H/o COPD: cont chronic home dose prednisone 10 -Transaminitis: follow LFTs.cont to improve Not immune to Hep B. gave 1st dose of Hep B vaccine 11/08 will follow Hep c Abs 11- anemia: anemia of chronic dz. w/u for MDS in progeress. follow P electropheresis and immunofixation HLOC Visit type - Emergency Visit Emergency Visit: Yes ED Registration Date: 10/31/18 Care time: The patient presented to the Emergency Department on the above date and was hospitalized for further evaluation of their emergent condition. - New Patient This patient is new to me today: No - Critical Care Critical Care patient: No
[2018-11-10] MEDS: INSULIN (LEVEMIR) 100 UNITS/ML UNITS SQ SCH (06:18)
[2018-11-10] MEDS: FUROSEMIDE 20 MG TABLET (FP) PO SCH ×3 (06:18→15:26)
[2018-11-10] MEDS: INSULIN SLIDING SCALE (NOVOLOG) 1 VIAL SQ SCH ×3 (06:18→17:12)
[2018-11-10 08:24] LABS: ALBUMIN 1.8 g/dl (3.4-5.0); ALK PHOS 165 U/L (45-117); ANION GAP 6 MMOL/L (8-16); BILIRUBIN,TOTAL 0.4 mg/dL (0.2-1); BLOOD UREA NITROGEN 16 mg/dL (7-18); CALCIUM 8.2 mg/dL (8.5-10.1); CHLORIDE 96 mmol/L (98-107); CO2 37 mmol/L (21-32); CREATININE 0.8 mg/dL (0.55-1.3); GLUCOSE,RANDOM 182 mg/dL (74-106); PHOSPHOROUS 2.5 mg/dL (2.5-4.9); POTASSIUM 4.6 mmol/L (3.5-5.1); SGOT/AST 25 U/L (15-37); SGPT/ALT 54 U/L (13-61); SODIUM 138 mmol/L (136-145); TOT PROT 5.2 g/dl (6.4-8.2)
[2018-11-10] MEDS ORDERED: PT OWN MED DRAWER 7, Y5N ONE (09:02)
[2018-11-10] MEDS: predniSONE 20 MG TABLET (UD) PO SCH ×2 (09:04→23:45)
[2018-11-10] MEDS: valACYclovir HCL 500 MG TABLET (FP) PO SCH ×2 (09:06→23:46)
[2018-11-10] MEDS: PANTOPRAZOLE 20 MG TABLET (FP) PO SCH (09:06)
--- NOTE | 2018-11-10 10:36 | PN ---
Progress Note (short form) - Note Progress Note: Esophagram/UGIS performed this morning reviewed - distal esophageal stricture with hold up of barium pill. Now no longer NPO Will plan for EGD tomorrow with possible dilation NPO after midnight Continue to hold AC if safe from primary team perspective
--- NOTE | 2018-11-10 10:58 | PN ---
Progress Note, Physician Chief Complaint: leg swelling History of Present Illness: swelling of legs returned when sitting in chair, resolves with elevation. much better than before, not painful denies sob, orthopnea no cp, palpit, pre/syncope no cigs - Current Medication List Current Medications: Active Medications Apixaban (Eliquis -) 5 mg PO BID [facility] Last Admin: 11/07/18 21:06 Dose: 5 mg Furosemide (Lasix -) 20 mg PO BID@0600,1400 [facility] Last Admin: 11/10/18 09:04 Dose: 20 mg Insulin Aspart (Novolog Vial Sliding Scale -) 1 vial SQ TIDAC [facility]; Protocol Last Admin: 11/10/18 06:18 Dose: Not Given Insulin Detemir (Levemir Vial) 12 units SQ DAILY@0700 [facility] Last Admin: 11/10/18 06:18 Dose: Not Given Losartan Potassium (Cozaar -) 50 mg PO DAILY [facility] Last Admin: 11/10/18 09:04 Dose: 50 mg Pantoprazole Sodium (Protonix -) 20 mg PO DAILY [facility] Last Admin: 11/10/18 09:06 Dose: Not Given Prednisone (Deltasone -) 20 mg PO BID [facility] Last Admin: 11/10/18 09:04 Dose: 20 mg Valacyclovir HCl (Valtrex -) 500 mg PO BID [facility] Last Admin: 11/10/18 09:06 Dose: Not Given - Objective Vital Signs: Vital Signs Temperature 98.2 F 11/10/18 06:00 Pulse Rate 62 11/10/18 06:00 Respiratory Rate 20 11/10/18 06:00 Blood Pressure 151/71 11/10/18 06:00 O2 Sat by Pulse Oximetry (%) 98 11/09/18 21:00 Constitutional: Yes: No Distress, Calm Eyes: No: Sclera Icterus HENT: No: Nasal Congestion Cardiovascular: Yes: Regular Rate and Rhythm, Murmur (2/6 EVY LSB), S1, S2, Other (PMI non diplaced). No: JVD, Gallop Respiratory: Yes: CTA Bilaterally. No: Accessory Muscle Use, Rales, Wheezes Gastrointestinal: Yes: Normal Bowel Sounds, Soft. No: Tenderness Musculoskeletal: Yes: Other (No kyphosis) Extremities: No: Cold Edema: Yes (2+ pretib) Integumentary: No: Jaundice Neurological: Yes: Alert, Oriented (x3) Psychiatric: No: Agitated Labs: CBC, BMP 11/09/18 07:00 11/10/18 06:00 INR, PTT INR 0.98 (0.83-1.09) 10/31/18 18:39 Assessment/Plan ECG: NSR with APCs, normal intervals/axis. inc RBBB. nonsp TWAs (no change vs ) CXR: enlarged heart (unchanged vs 05/2018). clear lungs/pleura LE edema: -suspect etiology is venous insufficiency and CCB effect > right sided CHF -JV pressure appears normal, and she has had no sob or signif hypoxia -edema improves with leg elevation -continue holding amlodipine -start SHAHID stockings -cont with po lasix severe pulm HTN with chronic right-sided CHF, severe TR: -etiology unknown--no signs CTEPH on V/Q, no [id number] shunt on CTA (cannot tolerate MRI-claustrophobia), no signs L sided diast CHF clinically and on stress echo. pt refused definitive assessment with RHC -BNP 800 (2K prior) -had been well-compensated and clinically euvolemic, NYHA III (1 flight of stairs) for long time -suspect edema is venous insy/ccb effect--much improved here off amlodipine with leg elevation. holding lasix -sats ok here, renal fxn stable, no signs hepatic congestion. do not suspect decompensated R heart failure, as disc'd above paroxysmal AFib, PAT: -rare episodes on event monitor and stress test -no standing AVN blockers given sinus node dysfunction on prior event monitor -no standing AVN blockers. cont tele, rate stable -holding eliquis for EGD with esophageal stricture dilation RLL mass vs ? PNA; appendix mass on imaging, esophageal stricture on upper GI series, preop CV eval: -per pulm, plan for lung mass is re-image as outpt to confirm resolution -per GI and ID, treating with abx for appendicitis--plan for outpt colonoscopy once acute inflammatory process resolves -for EGD with stricture dilation--holding eliquis -no signs/sx's of active CHF or other CV dz. at acceptable risk to proceed with procedure, medically optimized DM with hyperosmolar/hyperglycemic state, no mental status changes: -A1c 14 -glycemia tx per primary HTN: -historically labile bp goes very hi when med lapses -was controlled on amlodipine, ARB long time -ARB held for ANNA few months ago--much lower potency regimen (losartan 25) resumed by renal, tolerating. dose incrd here to 50, renal fxn stable. BP 130s- 160s, likely will elevate significantly once home. 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
--- NOTE | 2018-11-10 11:39 | PN ---
Progress Note (short form) - Note Progress Note: PULMONARY Denies shortness of breath. Cough improving. No fevers. Vital Signs Period Temp Pulse Resp BP Sys/Red Pulse Ox Last 24 Hr 97.9 F-98.2 F 62-81 20-20 118-157/71-82 98 Gen: NAD in chair Heart: RRR Lung: scattered rhonchi Abd: soft, nontender Ext: no edema CBC, BMP 11/09/18 07:00 11/10/18 06:00 Active Medications Furosemide (Lasix -) 20 mg PO BID@0600,1400 [facility] Last Admin: 11/10/18 09:04 Dose: 20 mg Insulin Aspart (Novolog Vial Sliding Scale -) 1 vial SQ TIDAC [facility]; Protocol Last Admin: 11/10/18 06:18 Dose: Not Given Insulin Detemir (Levemir Vial) 14 units SQ DAILY@0700 [facility] Losartan Potassium (Cozaar -) 100 mg PO DAILY [facility] Pantoprazole Sodium (Protonix -) 20 mg PO DAILY [facility] Last Admin: 11/10/18 09:06 Dose: Not Given Prednisone (Deltasone -) 20 mg PO BID [facility] Last Admin: 11/10/18 09:04 Dose: 20 mg Valacyclovir HCl (Valtrex -) 500 mg PO BID [facility] Last Admin: 11/10/18 09:06 Dose: Not Given A/P Hyperosmolar Hyperglycemic Nonketotic State improved Severe Pulmonary HTN Previous history of Hydralazine induced lupus syndrome Paroxysmal Atrial Fibrillation with RVR Lactic Acidosis r/o Ischemic Bowel HTN CKD Asthma Previous OSAS ruled out RLL rounded mass ?PNA ,? malignant - inhaled bronchodilators as needed - glucose control - rate controlled - will need outpatient follow up of chest imaging in 4-6 weeks, if no change then will need PET/CT
--- NOTE | 2018-11-10 15:04 | PN ---
Teaching Attending Note Name of Resident: Presley Flores ATTENDING PHYSICIAN STATEMENT I saw and evaluated the patient. I reviewed the resident's note and discussed the case with the resident. I agree with the resident's findings and plan as documented. SUBJECTIVE: no pain, no SOB , no fever . seen after her UGIS OBJECTIVE: NAD, cooperative CV: RRR, 2/6 at base Lungs: CTAB Abd: soft, NT, Nd, NL BS. Ext: no 2+ edema both legs. improved ASSESSMENT AND PLAN: 73yo female with PMHx of pulmonary HTN, R sided heart failure, P a fib,severe TR, A-fib (on eliquis), sinus node dysfunciton , Hydralazine induced lupus, DM , pulm HTN, nephrotic syndrome due to focal glmerulosclerosis, who presented with worsening LE edema and was found to have HHS. 1- HHS: resolved. - levemir increase to 14 in am. did not receive morning dose this am. give 10 units this afternoon - cont SSI TIDAC. 2- Possible PNA, with R LL mass, and multiple other lung nodules. -finished course of zosyn - need further w/u for those nodules, Mets vs. primary. PET scan as out pt - need repeat Ct scan of chest in few weeks 3- Appendix mass: ? appendicitis . - finished abx - no surgical intervention - colo as out pt/elevated CEA per GI note 4- Gastric edema: esophago-gastrc junction strictur tarun UGIS. EGD tomorrow . cont to hold eliquis . pt is aware of risk of stroke in mean time . ashleigh lresume tomorrow evening if no complications with EGD 6- A fib:hold AC. No AV bushra blockers due to possible SSS 7- LE edema: has chronic R sided heart failure, hypoalbuminemia and was on norvasc. - cont to hold norvasc - cont home lasix 20 BID. - monitor and replete electrolytes 8- HTN: can't use BB/CCB, hydralazine and try to avoid HCTZ. - losartan at 100 today 9- H/o COPD: cont chronic home dose prednisone. 10 -Transaminitis: improving Not immune to Hep B. gave 1st dose of Hep B vaccine 11/08 hep C Abs nl 11- anemia of chronic dz. w/u for MDS in progress. follow P electropheresis and imunofixation HLOC ASSESSMENT AND PLAN:
[2018-11-10] MEDS ORDERED: INSULIN (LEVEMIR) 100 UNITS/ML UNITS SQ ONE (15:05)
--- NOTE | 2018-11-10 18:20 | PN ---
Physical Exam: SUBJECTIVE: Patient seen and examined at bedside. No acute events overnight. GI Series today. OBJECTIVE: Vital Signs Period Temp Pulse Resp BP Sys/Red Pulse Ox Last 24 Hr 97.8 F-98.2 F 62-74 18-20 132-173/64-79 98-99 GENERAL: AAOx3 HEAD: Atraumatic/Normocephalic EYES: EOMI Sclera Clear ENT: MMM NECK: Supple. LUNGS: Fine rales at bases HEART: Irregular, S1S2 ABDOMEN: No guarding or rigidity. Soft Nondistended. EXTREMITIES: 2+ pitting edema PSYCH: Normal mood, normal affect. SKIN: Warm, dry, normal turgor, no rashes or lesions noted Laboratory Results - last 24 hr 11/08/18 11/10/18 11/10/18 06:30 06:00 06:17 Sodium 138 Potassium 4.6 Chloride 96 L Carbon Dioxide 37 H Anion Gap 6 L BUN 16 Creatinine 0.8 Creat Clearance w eGFR > 60 POC Glucometer 182 Random Glucose 182 H Calcium 8.2 L Phosphorus 2.5 Magnesium 2.0 Total Bilirubin 0.4 AST 25 ALT 54 Alkaline Phosphatase 165 H Total Protein 5.2 L Albumin 1.8 L Hep C Ab Diagnostic 0.1 11/10/18 11/10/18 11:51 17:10 Sodium Potassium Chloride Carbon Dioxide Anion Gap BUN Creatinine Creat Clearance w eGFR POC Glucometer 339 334 Random Glucose Calcium Phosphorus Magnesium Total Bilirubin AST ALT Alkaline Phosphatase Total Protein Albumin Hep C Ab Diagnostic Active Medications Generic Name Dose Route Start Last Admin Trade Name Freq PRN Reason Stop Dose Admin Furosemide 20 mg 11/07/18 16:45 11/10/18 15:26 Lasix - PO 20 mg BID@0600,1400 [facility] Administration Insulin Aspart 1 vial 11/07/18 16:30 11/10/18 17:12 Novolog Vial Sliding Scale - SQ 8 units TIDAC [facility] Administration Protocol Insulin Detemir 14 units 11/10/18 10:59 Levemir Vial SQ DAILY@0700 [facility] Losartan Potassium 100 mg 11/10/18 11:01 Cozaar - PO DAILY [facility] Pantoprazole Sodium 20 mg 11/08/18 10:00 11/10/18 09:06 Protonix - PO Not Given DAILY [facility] Prednisone 20 mg 11/07/18 22:00 11/10/18 09:04 Deltasone - PO 20 mg BID [facility] Administration Valacyclovir HCl 500 mg 11/07/18 22:00 11/10/18 09:06 Valtrex - PO Not Given BID [facility] ASSESSMENT/PLAN: 73 y/o F with PMHx of HTN, HLD, NIDDM, Afib (on Eliquis), CKD who was admitted for [facility] and transferred to ICU after an episode of Hypoglycemia. #Right LL Pulmonary Mass/Pneumonia? (1.7cm x1.9cm noted on CT abdomen) -Oncology on board---> Dr Clayton/Dr Wild---> get PET CT, non contrast chest CT to eval lungs gamboa. -hemoglobin electrophoreisis pending Albumin/Globulin gradient being <1; Myelodysplastic syndrome work-up per Dr Clayton/Junito -Will require outpatient follow-up -Zosyn treatment finished. -I.D on board. Blood/Urine cultures Negative. #Gastric Wall Edema Dr Gould on board UGIS performed today--> gastroesophageal stricture. Plan for EGD in am w/ possible dilation. Will defer Colonoscopy until Saturday per GI Eliquis held in light of planned EGD Saturday. 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 CTAP--> Gastric Edema. Dr Joyner on board: " clinically asymptomatic. Very low index of suspicion for acute appendicitis and or neoplasm. No acute surgical intervention indicated. Recommends PO and I.V CTAP in 3 months. #Worsening LE edema: Hold of Amlodipine. Lasix resumed. Will start ARB if renal function wnl tomorrow -Will administer extra dose of lasix in am #Tropenemia: Most likely 2/[address] Mcnair on board #CKD : Bun/Cr. 44/1.7 on admission. Now 16/0.8 Nephrology consulted--> Dr Perez #Atrial Fibrillation - Eliqiuis 5 mg po BID--- On hold #HTN Lasix resumed as renal function wnl -will hold amlodipine in setting of worsening LE edema -losartan 100 mg po Daily #FEN: No fluids Monitor Electrolytes Diabetic Diet DVT ppx: eliquis on hold Visit type - Emergency Visit Emergency Visit: Yes ED Registration Date: 10/31/18 Care time: The patient presented to the Emergency Department on the above date and was hospitalized for further evaluation of their emergent condition. - New Patient This patient is new to me today: No - Critical Care Critical Care patient: No - Discharge Referral Referred to [facility] Med P.C.: No
[2018-11-11] MEDS: INSULIN SLIDING SCALE (NOVOLOG) 1 VIAL SQ SCH ×3 (06:27→17:22)
[2018-11-11] MEDS: FUROSEMIDE 20 MG TABLET (FP) PO SCH ×2 (06:27→14:26)
[2018-11-11] MEDS: INSULIN (LEVEMIR) 100 UNITS/ML UNITS SQ SCH (06:27)
[2018-11-11 07:40] LABS: HEMATOCRIT 32.8 % (32.4-45.2); HEMOGLOBIN 11.3 GM/dL (10.7-15.3); MCH 33.5 pg (25.7-33.7); MCHC 34.4 g/dl (32.0-36.0); MEAN CELL VOLUME 97.3 fl (80-96); MEAN PLT VOLUME 8.3 fl (7.5-11.1); PLATELET COUNT 326 K/MM3 (134-434); RBC 3.37 M/mm3 (3.60-5.2); RDW 13.6 % (11.6-15.6)
[2018-11-11 08:09] LABS: ANION GAP 6 MMOL/L (8-16); BLOOD UREA NITROGEN 15 mg/dL (7-18); CALCIUM 8.6 mg/dL (8.5-10.1); CHLORIDE 95 mmol/L (98-107); CO2 38 mmol/L (21-32); CREATININE 0.6 mg/dL (0.55-1.3); GLUCOSE,RANDOM 99 mg/dL (74-106); MAGNESIUM 1.9 mg/dL (1.8-2.4); PHOSPHOROUS 2.2 mg/dL (2.5-4.9); POTASSIUM 3.9 mmol/L (3.5-5.1); SODIUM 139 mmol/L (136-145)
[2018-11-11] MEDS ORDERED: INSULIN (LEVEMIR) 100 UNITS/ML UNITS SQ ONE (08:30)
[2018-11-11] MEDS ORDERED: PT OWN MED DRAWER 7, Y5N ONE (09:00)
[2018-11-11] MEDS: predniSONE 20 MG TABLET (UD) PO SCH ×2 (09:02→22:38)
[2018-11-11] MEDS: LOSARTAN POTASSIUM 50 MG TABLET (FP) PO SCH (09:02)
[2018-11-11] MEDS: PANTOPRAZOLE 20 MG TABLET (FP) PO SCH (09:02)
[2018-11-11] MEDS: valACYclovir HCL 500 MG TABLET (FP) PO SCH ×2 (09:02→22:38)
--- NOTE | 2018-11-11 10:46 | PN ---
Progress Note (short form) - Note Progress Note: EGD complete. Report placed in procedural section of the physical chart and will be scanned into [employer]. Problem List - Problems (1) Abnormal CT of the abdomen Code(s): R93.5 - ABN FINDINGS ON DX IMAGING OF ABD REGIONS, INC RETROPERITON (2) Abnormal liver function tests Code(s): R94.5 - ABNORMAL RESULTS OF LIVER FUNCTION STUDIES (3) Anemia Code(s): D64.9 - ANEMIA, UNSPECIFIED Qualifiers: Anemia type: unspecified type Qualified Code(s): D64.9 - Anemia, unspecified (4) Lung mass Code(s): R91.8 - OTHER NONSPECIFIC ABNORMAL FINDING OF LUNG FIELD
--- NOTE | 2018-11-11 11:39 | PN ---
Progress Note (short form) - Note Progress Note: PULMONARY s/p EGD showing esophageal candidiasis and gastritis. Denies shortness of breath. Cough improving. No fevers. Vital Signs Period Temp Pulse Resp BP Sys/Red Pulse Ox Last 24 Hr 97.6 F-98.1 F 61-85 17-20 117-175/64-97 95-100 Gen: NAD at rest Heart: RRR Lung: decreased breath sounds at the bases Abd: soft, nontender Ext: no edema CBC, BMP 11/11/18 06:35 11/11/18 06:35 Active Medications Furosemide (Lasix -) 20 mg PO BID@0600,1400 [facility] Last Admin: 11/11/18 06:27 Dose: 20 mg Insulin Aspart (Novolog Vial Sliding Scale -) 1 vial SQ TIDAC [facility]; Protocol Last Admin: 11/11/18 06:27 Dose: Not Given Insulin Detemir (Levemir Vial) 14 units SQ DAILY@0700 [facility] Last Admin: 11/11/18 06:27 Dose: Not Given Losartan Potassium (Cozaar -) 100 mg PO DAILY [facility] Last Admin: 11/11/18 09:02 Dose: 100 mg Prednisone (Deltasone -) 20 mg PO BID [facility] Last Admin: 11/11/18 09:02 Dose: 20 mg Valacyclovir HCl (Valtrex -) 500 mg PO BID [facility] Last Admin: 11/11/18 09:02 Dose: 500 mg A/P Hyperosmolar Hyperglycemic Nonketotic State improved Severe Pulmonary HTN Previous history of Hydralazine induced lupus syndrome Paroxysmal Atrial Fibrillation with RVR Lactic Acidosis r/o Ischemic Bowel HTN CKD Asthma Previous OSAS ruled out RLL rounded mass ?PNA ,? malignant - inhaled bronchodilators as needed - taper off prednisone - glucose control - rate controlled - will need outpatient follow up of chest imaging in 4-6 weeks, if no change then will need PET/CT
[2018-11-11] MEDS ORDERED: FUROSEMIDE 20 MG TABLET (FP) PO ONE (12:19)
[2018-11-11 13:16] LABS: HGB SOLUBILITY Negative (Negative); Hgb A 97.9 % (96.4-98.8); Hgb C 0 % (0.0); Hgb F 0 % (0.0-2.0); Hgb S 0 % (0.0)
--- NOTE | 2018-11-11 19:52 | PN ---
Physical Exam: SUBJECTIVE: Patient seen and examined at bedside. EGD today. Sitting in chair comfortable. Family at bedside . OBJECTIVE: Vital Signs Period Temp Pulse Resp BP Sys/Red Pulse Ox Last 24 Hr 97.6 F-98.1 F 61-90 17-20 117-175/65-97 95-100 GENERAL: Pleasant AAOx3 HEAD: NC/AT EYES: EOMI Sclera Clear ENT: MMM NECK: Supple. LUNGS: Decreased BS @ Bases HEART: Irregular, S1S2 ABDOMEN: No guarding or rigidity. Soft Nondistended. EXTREMITIES: Edema still 2+ pitting. PSYCH: Normal mood, normal affect. SKIN: Warm, dry, normal turgor, no rashes or lesions noted Laboratory Results - last 24 hr 11/06/18 11/07/18 11/07/18 06:00 05:30 05:30 WBC RBC Hgb Hct MCV MCH MCHC RDW Plt Count MPV Hemoglobin A 97.9 Hemoglobin A2 2.1 Hemoglobin C 0 Hemoglobin S 0 Variant Hemoglobin 0.0 Hemoglobin Interpret Maternal Rh 0 Hemoglobin Solubility Negative Sodium Potassium Chloride Carbon Dioxide Anion Gap BUN Creatinine Creat Clearance w eGFR POC Glucometer Random Glucose Calcium Phosphorus Magnesium Total Protein (PEP) 4.5 L Albumin (PEP) 1.8 L Globulin 2.7 Albumin/Globulin Ratio 0.7 Beta Globulins 0.7 AISHA M-Jaime Not observed Serum AISHA Interpret IEP IgG 885 IEP IgA 256 IEP IgM 139 11/11/18 11/11/18 11/11/18 06:14 06:35 06:35 WBC 10.0 RBC 3.37 L Hgb 11.3 Hct 32.8 MCV 97.3 H MCH 33.5 MCHC 34.4 RDW 13.6 Plt Count 326 D MPV 8.3 Hemoglobin A Hemoglobin A2 Hemoglobin C Hemoglobin S Variant Hemoglobin Hemoglobin Interpret Maternal Rh Hemoglobin Solubility Sodium 139 Potassium 3.9 Chloride 95 L Carbon Dioxide 38 H Anion Gap 6 L BUN 15 Creatinine 0.6 Creat Clearance w eGFR > 60 POC Glucometer 107 Random Glucose 99 Calcium 8.6 Phosphorus 2.2 L Magnesium 1.9 Total Protein (PEP) Albumin (PEP) Globulin Albumin/Globulin Ratio Beta Globulins AISHA M-Jaime Serum AISHA Interpret IEP IgG IEP IgA IEP IgM 11/11/18 11/11/18 11:57 17:21 WBC RBC Hgb Hct MCV MCH MCHC RDW Plt Count MPV Hemoglobin A Hemoglobin A2 Hemoglobin C Hemoglobin S Variant Hemoglobin Hemoglobin Interpret Maternal Rh Hemoglobin Solubility Sodium Potassium Chloride Carbon Dioxide Anion Gap BUN Creatinine Creat Clearance w eGFR POC Glucometer 131 356 Random Glucose Calcium Phosphorus Magnesium Total Protein (PEP) Albumin (PEP) Globulin Albumin/Globulin Ratio Beta Globulins AISHA M-Jaime Serum AISHA Interpret IEP IgG IEP IgA IEP IgM Active Medications Generic Name Dose Route Start Last Admin Trade Name Freq PRN Reason Stop Dose Admin Furosemide 20 mg 11/07/18 16:45 11/11/18 14:26 Lasix - PO 20 mg BID@0600,1400 [facility] Administration Insulin Aspart 1 vial 11/07/18 16:30 11/11/18 17:22 Novolog Vial Sliding Scale - SQ 10 units TIDAC [facility] Administration Protocol Insulin Detemir 14 units 11/10/18 10:59 11/11/18 06:27 Levemir Vial SQ Not Given DAILY@0700 [facility] Losartan Potassium 100 mg 11/10/18 11:01 11/11/18 09:02 Cozaar - PO 100 mg DAILY [facility] Administration Prednisone 20 mg 11/07/18 22:00 11/11/18 09:02 Deltasone - PO 20 mg BID [facility] Administration Valacyclovir HCl 500 mg 11/07/18 22:00 11/11/18 09:02 Valtrex - PO 500 mg BID [facility] Administration ASSESSMENT/PLAN: 73 y/o F with PMHx of HTN, HLD, NIDDM, Afib (on Eliquis), CKD who was [facility] and transferred to ICU after an episode of Hypoglycemia. #Right LL Pulmonary Mass/Pneumonia? (1.7cm x1.9cm noted on CT abdomen) -Oncology on board---> Dr Clayton/Dr Wild---> get PET CT, non contrast chest CT to eval lungs gamboa. -hemoglobin electrophoreisis pending Albumin/Globulin gradient being <1; Myelodysplastic syndrome work-up per Dr Clayton/Junito -Will require outpatient follow-up -Zosyn treatment finished. -I.D on board. Blood/Urine cultures Negative. #Gastric Wall Edema Dr Guold on board UGIS --> gastroesophageal stricture. S/P EGD this am. White exudates consistent with candidiasis in the entire esophagus. No esophageal stricture or GE junction stenosis. Diflucan 200 PO followed by 100 mg Once daily for 20 more days. 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 CTAP--> Gastric Edema. Dr Joyner on board: " clinically asymptomatic. Very low index of suspicion for acute appendicitis and or neoplasm. No acute surgical intervention indicated. Recommends PO and I.V CTAP in 3 months. #Worsening LE edema: Hold of Amlodipine. Lasix resumed. -Received extra dose of lasix in am in addition to standing 20 mg po bisd #Tropenemia: Most likely 2/2 demand ischemia. cardiology on board #CKD : Bun/Cr. 44/1.7 on admission. Now 15/0.6 Nephrology consulted--> Dr Perez #Atrial Fibrillation - Eliqiuis 5 mg po BID--- On hold #HTN Lasix resumed as renal function wnl -will hold amlodipine in setting of worsening LE edema -losartan 100 mg po Daily #FEN: No fluids Monitor Electrolytes Diabetic Diet DVT ppx: eliquis on hold until tomorrow Visit type - Emergency Visit Emergency Visit: Yes ED Registration Date: 10/31/18 Care time: The patient presented to the Emergency Department on the above date and was hospitalized for further evaluation of their emergent condition. - New Patient This patient is new to me today: No - Critical Care Critical Care patient: No - Discharge Referral Referred to [facility] Med P.C.: No
[2018-11-11] MEDS ORDERED: FLUCONAZOLE 100 MG TABLET (UD) PO ONE (20:00)
--- NOTE | 2018-11-11 20:00 | PN ---
Teaching Attending Note Name of Resident: Presley Flores ATTENDING PHYSICIAN STATEMENT I saw and evaluated the patient. I reviewed the resident's note and discussed the case with the resident. I agree with the resident's findings and plan as documented. SUBJECTIVE: No fever or chills. no abd pain , no OCAMPO. OBJECTIVE: NAD, cooperative CV: RRR, 2/6 at base Lungs: CTAB Abd: soft, NT, Nd, NL BS. Ext: no 2+ edema both legs. ASSESSMENT AND PLAN: 73yo female with PMHx of pulmonary HTN, R sided heart failure, P a fib,severe TR , A-fib (on eliquis), sinus node dysfunciton , Hydralazine induced lupus, DM, pulm HTN, nephrotic syndrome due to focal glmerulosclerosis, who presented with worsening LE edema and was found to have HHS. 1- HHS: resolved. - [id number] in am. did not receive morning dose this am. - cont SSI TIDAC. 2- Possible PNA, with R LL mass, and multiple other lung nodules. -finished course of zosyn - need further w/u for those nodules, Mets vs. primary. PET scan as out pt - need repeat Ct scan of chest in few weeks 3- Appendix mass: ? appendicitis . - finished abx - no surgical intervention - colo as out pt 4- janine esophagitis : on EGD, no stricture. - start diflucan. need total of 21 days . monitor LFts - need repeat CT of Abd to evaluate external compression of stomach . - cont w/u with GI after DC - ? repeat EGD after treatment - declined HV testing when offered 6- A fib:resume eliquis in am . No AV bushra blockers due to possible SSS 7- LE edema: has chronic R sided heart failure, hypoalbuminemia and was on norvasc. - cont to hold norvasc. will not resume at dc - cont home lasix 20 BID. - monitor and replete electrolytes 8- HTN: can't use BB/CCB, hydralazine and try to avoid HCTZ. - losartan at 100 9- H/o COPD: cont chronic home dose prednisone. 10 -Transaminitis: improving Not immune to Hep B. gave 1st dose of Hep B vaccine 11/08. cont series as out pt hep C Abs nl 11- anemia of chronic dz. w/u for MDS in progress. Hb electropheresis NL and No M spike HLOC dc home otmorrow as no one is available to picking tech the patient today for a safe dc ASSESSMENT AND PLAN:
[2018-11-12] MEDS: FUROSEMIDE 20 MG TABLET (FP) PO SCH ×2 (06:50→13:49)
[2018-11-12] MEDS: INSULIN (LEVEMIR) 100 UNITS/ML UNITS SQ SCH (06:50)
[2018-11-12] MEDS: INSULIN SLIDING SCALE (NOVOLOG) 1 VIAL SQ SCH ×2 (06:51→13:49)
[2018-11-12] MEDS ORDERED: INSULIN (LEVEMIR) 100 UNITS/ML UNITS SQ ONE (07:19)
[2018-11-12] MEDS ORDERED: INSULIN (NOVOLOG MIX 70/30) 100 UNITS/ML MDV SQ ONE (07:19)
[2018-11-12 07:58] LABS: ANION GAP 6 MMOL/L (8-16); BLOOD UREA NITROGEN 16 mg/dL (7-18); CALCIUM 8.5 mg/dL (8.5-10.1); CHLORIDE 95 mmol/L (98-107); CO2 37 mmol/L (21-32); CREATININE 0.8 mg/dL (0.55-1.3); GLUCOSE,RANDOM 289 mg/dL (74-106); POTASSIUM 4.1 mmol/L (3.5-5.1); SODIUM 138 mmol/L (136-145)
--- NOTE | 2018-11-12 08:28 | PN ---
Teaching Attending Note Name of Resident: Presley Flores ATTENDING PHYSICIAN STATEMENT I saw and evaluated the patient. I reviewed the resident's note and discussed the case with the resident. I agree with the resident's findings and plan as documented. SUBJECTIVE: Patient is feeling better with no acute distress. No shortness of breath. OBJECTIVE: Vital Signs Temperature 97.9 F 11/12/18 06:00 Pulse Rate 102 H 11/12/18 06:00 Respiratory Rate 20 11/12/18 06:00 Blood Pressure 155/94 11/12/18 06:00 O2 Sat by Pulse Oximetry (%) 95 11/11/18 21:00 GENERAL: Pleasant AAOx3 HEAD: NC/AT EYES: EOMI Sclera Clear ENT: MMM, NECK: Supple. LUNGS: Decreased BS at the Bases HEART: Irregular, S1S2 ABDOMEN: BS positive, NT,ND, No guarding . Soft EXTREMITIES: trace edema, pulses are positive PSYCH: Normal mood, normal affect. SKIN: Warm, dry, normal turgor, no rashes or lesions noted CBCD WBC 10.0 K/mm3 (4.0-10.0) 11/11/18 06:35 RBC 3.37 M/mm3 (3.60-5.2) L 11/11/18 06:35 Hgb 11.3 GM/dL (10.7-15.3) 11/11/18 06:35 Hct 32.8 % (32.4-45.2) 11/11/18 06:35 MCV 97.3 fl (80-96) H 11/11/18 06:35 MCHC 34.4 g/dl (32.0-36.0) 11/11/18 06:35 RDW 13.6 % (11.6-15.6) 11/11/18 06:35 Plt Count 326 K/MM3 (134-434) D 11/11/18 06:35 MPV 8.3 fl (7.5-11.1) 11/11/18 06:35 CMP Sodium 138 mmol/L (136-145) 11/12/18 06:39 Potassium 4.1 mmol/L (3.5-5.1) 11/12/18 06:39 Chloride 95 mmol/L (98-107) L 11/12/18 06:39 Carbon Dioxide 37 mmol/L (21-32) H 11/12/18 06:39 Anion Gap 6 MMOL/L (8-16) L 11/12/18 06:39 BUN 16 mg/dL (7-18) 11/12/18 06:39 Creatinine 0.8 mg/dL (0.55-1.3) 11/12/18 06:39 Creat Clearance w eGFR > 60 (>60) 11/12/18 06:39 Random Glucose 289 mg/dL (74-106) H 11/12/18 06:39 Calcium 8.5 mg/dL (8.5-10.1) 11/12/18 06:39 Total Bilirubin 0.4 mg/dL (0.2-1) 11/10/18 06:00 AST 25 U/L (15-37) 11/10/18 06:00 ALT 54 U/L (13-61) 11/10/18 06:00 Alkaline Phosphatase 165 U/L (45-117) H 11/10/18 06:00 Total Protein 5.2 g/dl (6.4-8.2) L 11/10/18 06:00 Albumin 1.8 g/dl (3.4-5.0) L 11/10/18 06:00 CARDIAC ENZYMES Creatine Kinase 103 U/L (26-192) 11/01/18 05:25 Troponin I 0.26 ng/ml (0.00-0.05) H 11/03/18 05:30 Current Medications Generic Name Dose Route Start Last Admin Trade Name Freq PRN Reason Stop Dose Admin Apixaban 5 mg 11/12/18 10:00 Eliquis - PO BID [facility] Fluconazole 100 mg 11/12/18 10:00 Diflucan - PO DAILY [facility] Furosemide 20 mg 11/07/18 16:45 11/12/18 06:50 Lasix - PO 20 mg BID@0600,1400 [facility] Administration Insulin Aspart 1 vial 11/07/18 16:30 11/12/18 06:51 Novolog Vial Sliding Scale - SQ 6 units TIDAC [facility] Administration Protocol Insulin Detemir 14 units 11/10/18 10:59 11/12/18 06:50 Levemir Vial SQ 14 units DAILY@0700 [facility] Administration Losartan Potassium 100 mg 11/10/18 11:01 11/11/18 09:02 Cozaar - PO 100 mg DAILY [facility] Administration Prednisone 20 mg 11/07/18 22:00 11/11/18 22:38 Deltasone - PO 20 mg BID [facility] Administration Valacyclovir HCl 500 mg 11/07/18 22:00 11/11/18 22:38 Valtrex - PO 500 mg BID [facility] Administration Home Medications Medication Instructions Recorded Brimonidine Tartrate [Alphagan 1 drop OU BID 06/02/18 0.15% -] Lactobacillus Acidophilus [Bacid -] 1 tab PO DAILY #30 tab 06/17/18 Ferrous Sulfate [Feosol] 325 mg PO BID 07/15/18 Albuterol Sulfate [Proair Hfa] 8.5 gm IH DAILY 07/21/18 Apixaban [Eliquis] 5 mg PO BID 07/21/18 Amlodipine Besylate [Norvasc -] 5 mg PO DAILY 10/31/18 Furosemide [Lasix -] 20 mg PO BID 10/31/18 Atorvastatin Ca [Lipitor] 20 mg PO DAILY 11/04/18 Glimepiride 2 mg PO BID 11/04/18 Prednisone [Deltasone] 20 mg PO BID 11/04/18 Cholecalciferol (Vitamin D3) 1 tab PO DAILY 11/05/18 [Vitamin D3] Folic Acid 1 mg PO DAILY 11/05/18 ASSESSMENT AND PLAN: Patient is a 73yo female with PMHx of pulmonary HTN, R sided heart failure, P a fib,severe TR, A-fib (on eliquis), sinus node dysfunciton , Hydralazine induced lupus, DM, pulm HTN, nephrotic syndrome due to focal glmerulosclerosis , who presented with worsening LE edema and was found to have HHS. # HHS: resolved. continue levemir 14u in am. did not receive morning dose this am, cont SSI TIDAC. # Acute PNA with R LL mass with multiple other lung nodules, s/p IV zosyn , patient will need follow up CT/Pet scan within a month period , with Dr. Clayton' s service and Pulmonary service for further w/u. Mets vs. primary. # Appendix mass: no surgical intervention, Follow with Dr Clayton # janine esophagitis : s/p EGD, no stricture. continue Diflucan total of 21 days. declined HV testing when offered # A fib:continue eliquis . No AV bushra blockers due to possible SSS # LE edema: has chronic R sided heart failure, hypoalbuminemia and was on norvasc. dc norvasc cont home lasix 20 BID. # HTN: can't use BB/CCB, hydralazine and try to avoid HCTZ. losartan at 100 # H/o COPD: cont chronic home dose prednisone. #-Transaminitis: improving follow with GI , not immune to Hep B. gave 1st dose of Hep B vaccine 11/08. cont series as out pt # anemia of chronic dz. w/u for MDS in progress. Hb electropheresis NL and No M spike dc patient home
[2018-11-12 09:14] LABS: IGA IMMUNOGLOBULIN 256; IGG IMMUNOGLOBULIN 885; IGM IMMUNOGLOBULIN 139
[2018-11-12 09:55] VITALS: TEMP 98
[2018-11-12] MEDS ORDERED: FLUCONAZOLE 100 MG TABLET (UD) PO SCH (10:00)
[2018-11-12] MEDS ORDERED: APIXABAN 5 MG TABLET PO SCH (10:00)
[2018-11-12] MEDS: LOSARTAN POTASSIUM 50 MG TABLET (FP) PO SCH (11:10)
[2018-11-12] MEDS: predniSONE 20 MG TABLET (UD) PO SCH (11:10)
[2018-11-12] MEDS: valACYclovir HCL 500 MG TABLET (FP) PO SCH (11:10)
--- NOTE | 2018-11-12 11:59 | PN ---
Progress Note (short form) - Note Progress Note: s: stable edema, no chest pain, palps, dyspnea, orthopnea Current Medications Apixaban (Eliquis -) 5 mg PO BID [facility] Last Admin: 11/12/18 11:10 Dose: 5 mg Fluconazole (Diflucan -) 100 mg PO DAILY [facility] Last Admin: 11/12/18 11:10 Dose: 100 mg Furosemide (Lasix -) 20 mg PO BID@0600,1400 [facility] Last Admin: 11/12/18 06:50 Dose: 20 mg Insulin Aspart (Novolog Vial Sliding Scale -) 1 vial SQ TIDAC [facility]; Protocol Last Admin: 11/12/18 06:51 Dose: 6 units Insulin Detemir (Levemir Vial) 14 units SQ DAILY@0700 [facility] Last Admin: 11/12/18 06:50 Dose: 14 units Losartan Potassium (Cozaar -) 100 mg PO DAILY [facility] Last Admin: 11/12/18 11:10 Dose: 100 mg Prednisone (Deltasone -) 20 mg PO BID [facility] Last Admin: 11/12/18 11:10 Dose: 20 mg Valacyclovir HCl (Valtrex -) 500 mg PO BID [facility] Last Admin: 11/12/18 11:10 Dose: 500 mg - Objective Vital Signs Period Temp Pulse Resp BP Sys/Red Pulse Ox Last 24 Hr 97.9 F-98 F 64-102 18-20 143-157/77-97 95 Constitutional: Yes: No Distress, Calm Eyes: No: Sclera Icterus HENT: No: Nasal Congestion Cardiovascular: Yes: Regular Rate and Rhythm, Murmur (2/6 EVY LSB), S1, S2, Other (PMI non diplaced). No: JVD, Gallop Respiratory: Yes: CTA Bilaterally. No: Accessory Muscle Use, Rales, Wheezes Gastrointestinal: Yes: Normal Bowel Sounds, Soft. No: Tenderness Musculoskeletal: Yes: Other (No kyphosis) Extremities: No: Cold Edema: Yes (2+ pretib) Integumentary: No: Jaundice Neurological: Yes: Alert, Oriented (x3) Psychiatric: No: Agitated Assessment/Plan ECG: NSR with APCs, normal intervals/axis. inc RBBB. nonsp TWAs (no change vs ) CXR: enlarged heart (unchanged vs 05/2018). clear lungs/pleura LE edema: -suspect etiology is venous insufficiency and CCB effect > right sided CHF -JV pressure appears normal, and she has had no sob or signif hypoxia -edema improves with leg elevation -continue holding amlodipine -start SHAHID stockings -cont with po lasix severe pulm HTN with chronic right-sided CHF, severe TR: -etiology unknown--no signs CTEPH on V/Q, no [id number] shunt on CTA (cannot tolerate MRI-claustrophobia), no signs L sided diast CHF clinically and on stress echo. pt refused definitive assessment with RHC -BNP 800 (2K prior) -had been well-compensated and clinically euvolemic, NYHA III (1 flight of stairs) for long time -suspect edema is venous insy/ccb effect--much improved here off amlodipine with leg elevation. holding lasix -sats ok here, renal fxn stable, no signs hepatic congestion. do not suspect decompensated R heart failure, as disc'd above paroxysmal AFib, PAT: -rare episodes on event monitor and stress test -no standing AVN blockers given sinus node dysfunction on prior event monitor - eliquis restarted this AM, continue RLL mass vs ? PNA; appendix mass on imaging, esophageal stricture on upper GI series, preop CV eval: -per pulm, plan for lung mass is re-image as outpt to confirm resolution -per GI and ID, treating with abx for appendicitis--plan for outpt colonoscopy once acute inflammatory process resolves - EGD yesterday - candidiasis and gastritis DM with hyperosmolar/hyperglycemic state, no mental status changes: -A1c 14 -glycemia tx per primary HTN: -historically labile bp goes very hi when med lapses -was controlled on amlodipine, ARB long time -ARB held for ANNA few months ago--much lower potency regimen (losartan 25) resumed by renal, tolerating. dose incrd here to 50, renal fxn stable. BP 130s- 160s, likely will elevate significantly once home. 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
--- NOTE | 2018-11-12 13:04 | HP ---
CHIEF COMPLAINT: PCP: HISTORY OF PRESENT ILLNESS: ER course was notable for: (1) (2) (3) Recent Travel: PAST MEDICAL HISTORY: PAST SURGICAL HISTORY: Social History: Smoking: Alcohol: Drugs: Family History: Allergies melon Allergy (Verified 10/31/18 18:06) strawberry Allergy (Verified 10/31/18 18:06) lactose Adverse Reaction (Verified 10/31/18 18:06) HOME MEDICATIONS: Home Medications Medication Instructions Recorded Brimonidine Tartrate [Alphagan 1 drop OU BID 06/02/18 0.15% -] Lactobacillus Acidophilus [Bacid -] 1 tab PO DAILY #30 tab 06/17/18 Ferrous Sulfate [Feosol] 325 mg PO BID 07/15/18 Albuterol Sulfate [Proair Hfa] 8.5 gm IH DAILY 07/21/18 Apixaban [Eliquis] 5 mg PO BID 07/21/18 Furosemide [Lasix -] 20 mg PO BID 10/31/18 Atorvastatin Ca [Lipitor] 20 mg PO DAILY 11/04/18 Glimepiride 2 mg PO BID 11/04/18 Prednisone [Deltasone] 20 mg PO BID 11/04/18 Cholecalciferol (Vitamin D3) 1 tab PO DAILY 11/05/18 [Vitamin D3] Folic Acid 1 mg PO DAILY 11/05/18 Fluconazole [Diflucan -] 100 mg PO DAILY #19 tablet 11/12/18 Insulin Glargine,Hum.rec.anlog 14 units SQ DAILY #10 pen 11/12/18 [Lantus Solostar PEN (NF)] Losartan Potassium [Cozaar -] 100 mg PO DAILY #30 tablet 11/12/18 Miscellaneous Medical Supply 1 each .ROUTE ASDIR #1 kit 11/12/18 [Glucometer Device] Miscellaneous Medical Supply 1 each .ROUTE ASDIR #1 box 11/12/18 [Glucometer Test Strips #100] Miscellaneous Medical Supply 1 each ASDIR #1 misc 11/12/18 [Outpatient Order] Valacyclovir HCl [Valtrex -] 500 mg PO BID #4 tablet 11/12/18 REVIEW OF SYSTEMS CONSTITUTIONAL: Absent: fever, chills, diaphoresis, generalized weakness, malaise, loss of appetite, weight change HEENT: Absent: rhinorrhea, nasal congestion, throat pain, throat swelling, difficulty swallowing, mouth swelling, ear pain, eye pain, visual changes CARDIOVASCULAR: Absent: chest pain, syncope, palpitations, irregular heart rate, lightheadedness , peripheral edema RESPIRATORY: Absent: cough, shortness of breath, dyspnea with exertion, orthopnea, wheezing, stridor, hemoptysis GASTROINTESTINAL: Absent: abdominal pain, abdominal distension, nausea, vomiting, diarrhea, constipation, melena, hematochezia GENITOURINARY: Absent: dysuria, frequency, urgency, hesitancy, hematuria, flank pain, genital pain MUSCULOSKELETAL: Absent: myalgia, arthralgia, joint swelling, back pain, neck pain SKIN: Absent: rash, itching, pallor HEMATOLOGIC/IMMUNOLOGIC: Absent: easy bleeding, easy bruising, lymphadenopathy, frequent infections ENDOCRINE: Absent: unexplained weight gain, unexplained weight loss, heat intolerance, cold intolerance NEUROLOGIC: Absent: headache, focal weakness or paresthesias, dizziness, unsteady gait, seizure, mental status changes, bladder or bowel incontinence PSYCHIATRIC: Absent: anxiety, depression, suicidal or homicidal ideation, hallucinations. PHYSICAL EXAMINATION Vital Signs - 24 hr 11/11/18 11/11/18 11/11/18 18:30 21:00 22:00 Temperature 97.9 F Pulse Rate 90 84 Respiratory 20 20 20 Rate Blood Pressure 151/77 143/88 O2 Sat by Pulse 95 Oximetry (%) 11/12/18 11/12/18 06:00 09:54 Temperature 97.9 F 98 F Pulse Rate 102 H 92 H Respiratory 20 20 Rate Blood Pressure 155/94 146/80 O2 Sat by Pulse Oximetry (%) GENERAL: Awake, alert, and fully oriented, in no acute distress. HEAD: Normal with no signs of trauma. EYES: Pupils equal, round and reactive to light, extraocular movements intact, sclera anicteric, conjunctiva clear. No lid lag. EARS, NOSE, THROAT: Ears normal, nares patent, oropharynx clear without exudates. Moist mucous membranes. NECK: Normal range of motion, supple without lymphadenopathy, JVD, or masses. LUNGS: Breath sounds equal, clear to auscultation bilaterally. No wheezes, and no crackles. No accessory muscle use. HEART: Regular rate and rhythm, normal S1 and S2 without murmur, rub or gallop. ABDOMEN: Soft, nontender, not distended, normoactive bowel sounds, no guarding, no rebound, no masses. No hepatomegaly or splenomegaly. MUSCULOSKELETAL: Normal range of motion at all joints. No bony deformities or tenderness. No CVA tenderness. UPPER EXTREMITIES: 2+ pulses, warm, well-perfused. No cyanosis. No clubbing. No peripheral edema. LOWER EXTREMITIES: 2+ pulses, warm, well-perfused. No calf tenderness. No peripheral edema. NEUROLOGICAL: Cranial nerves II-XII intact. Normal speech. Normal gait. PSYCHIATRIC: Cooperative. Good eye contact. Appropriate mood and affect. SKIN: Warm, dry, normal turgor, no rashes or lesions noted, normal capillary refill. Laboratory Results - last 24 hr 11/06/18 11/07/18 11/07/18 06:00 05:30 05:30 Hemoglobin A 97.9 Hemoglobin A2 2.1 Hemoglobin C 0 Hemoglobin S 0 Variant Hemoglobin 0.0 Hemoglobin Interpret Maternal Rh 0 Hemoglobin Solubility Negative Sodium Potassium Chloride Carbon Dioxide Anion Gap BUN Creatinine Creat Clearance w eGFR POC Glucometer Random Glucose Calcium Total Protein (PEP) 4.5 L Albumin (PEP) 1.8 L Globulin 2.7 Albumin/Globulin Ratio 0.7 Beta Globulins 0.7 IgG 885 IgA 256 IgM 139 AISHA M-Jaime Not observed Serum AISHA Interpret IEP IgG 885 IEP IgA 256 IEP IgM 139 11/11/18 11/12/18 11/12/18 17:21 06:39 06:46 Hemoglobin A Hemoglobin A2 Hemoglobin C Hemoglobin S Variant Hemoglobin Hemoglobin Interpret Maternal Rh Hemoglobin Solubility Sodium 138 Potassium 4.1 Chloride 95 L Carbon Dioxide 37 H Anion Gap 6 L BUN 16 Creatinine 0.8 Creat Clearance w eGFR > 60 POC Glucometer 356 261 Random Glucose 289 H Calcium 8.5 Total Protein (PEP) Albumin (PEP) Globulin Albumin/Globulin Ratio Beta Globulins IgG IgA IgM AISHA M-Jaime Serum AISHA Interpret IEP IgG IEP IgA IEP IgM 11/12/18 12:06 Hemoglobin A Hemoglobin A2 Hemoglobin C Hemoglobin S Variant Hemoglobin Hemoglobin Interpret Maternal Rh Hemoglobin Solubility Sodium Potassium Chloride Carbon Dioxide Anion Gap BUN Creatinine Creat Clearance w eGFR POC Glucometer 310 Random Glucose Calcium Total Protein (PEP) Albumin (PEP) Globulin Albumin/Globulin Ratio Beta Globulins IgG IgA IgM AISHA M-Jaime Serum AISHA Interpret IEP IgG IEP IgA IEP IgM ASSESSMENT/PLAN:
[2018-11-12 13:51] VITALS: BP 149/75; PULSE 77
--- NOTE | 2018-11-12 15:06 | DS ---
Physical Exam: SUBJECTIVE: Patient seen and examined at bedside. No acute events overnight. Family at bedside. OBJECTIVE: Vital Signs Period Temp Pulse Resp BP Sys/Red Pulse Ox Last 24 Hr 97.9 F-98 F 77-102 20-20 143-155/75-94 95 PHYSICAL EXAM GENERAL: NAD pleasant HEAD: NC/AT EYES: EOMI Sclera Clear ENT: MMM NECK: Supple. LUNGS: Good inspiratory effort. CTAB. HEART: Irregular, S1S2 nl ABDOMEN: No guarding or rigidity. Soft Nondistended. EXTREMITIES: Edema remains 2 + b/l Pitting PSYCH: Normal mood, normal affect. SKIN: Warm, dry, normal turgor, no rashes or lesions noted LABS Laboratory Results - last 24 hr 11/07/18 11/07/18 11/11/18 05:30 05:30 17:21 Sodium Potassium Chloride Carbon Dioxide Anion Gap BUN Creatinine Creat Clearance w eGFR POC Glucometer 356 Random Glucose Calcium Total Protein (PEP) 4.5 L Albumin (PEP) 1.8 L Globulin 2.7 Albumin/Globulin Ratio 0.7 Beta Globulins 0.7 IgG 885 IgA 256 IgM 139 AISHA M-Jaime Not observed Serum AISHA Interpret IEP IgG 885 IEP IgA 256 IEP IgM 139 11/12/18 11/12/18 11/12/18 06:39 06:46 12:06 Sodium 138 Potassium 4.1 Chloride 95 L Carbon Dioxide 37 H Anion Gap 6 L BUN 16 Creatinine 0.8 Creat Clearance w eGFR > 60 POC Glucometer 261 310 Random Glucose 289 H Calcium 8.5 Total Protein (PEP) Albumin (PEP) Globulin Albumin/Globulin Ratio Beta Globulins IgG IgA IgM AISHA M-Jaime Serum AISHA Interpret IEP IgG IEP IgA IEP IgM HOSPITAL COURSE: Date of Admission:10/31/18 Pt is a 73 y/o F with PMHx of HTN, HLD, NIDDM, Afib (on Eliquis), CKD who was admitted for Nonketotic Hyperglycemic Hyperosmolar state and transferred to ICU after an episode of Hypoglycemia. Pt was admitted to ICU and started on an insulin drip. Serum osmolality was 333, glucose 826, pH 7.41 (on VBG), bicarb > 18, and no anion gap. Pt was eventually switched to SQ insulin [address] Scan chest was performed on patient and revealed a mass in the right lower lung measuring 1.7cm x1.9cm. CT also demonstrated gastric wall edema and GI was consulted and performed an EGD which revealed diffuse janine within the esophagus; pt was started and dc'ed on diflucan. Oncology was consulted as this mass was suspicion for malignancy per official reads. Oncology recommended repeat CT chest within 1 month and outpatient follow up for PET scan and Bone scan. Pt was also worked up for MDS per oncology. Pt was also treated with Zosyn as she was septic possibly from pneumonia or a GI source. In addition, Norvasc was stopped as pt had 3+ pitting edema. Losartan was started as a substitute. Date of Discharge: 11/12/18 Minutes to complete discharge: 35 Discharge Summary Reason For Visit: ELEVATED TROPONIN LEVEL,DIABETIC BYPEROSMOLER Current Active Problems Abdominal pain (Acute) Abnormal CT of the abdomen (Acute) Abnormal liver function tests (Acute) CHF (congestive heart failure) (Acute) Drug-induced lupus erythematosus (Acute) Elevated lactic acid level (Acute) Elevated troponin (Acute) Fever (Acute) Focal sclerosis of kidney (Acute) Hyperglycemic hyperosmolar nonketotic coma (Acute) Lung mass (Acute) Condition: Improved - Instructions Diet, Activity, Other Instructions: You presented to the hospital due to extremely elevated blood sugar levels. You were also found to have a very elevated A1C 0f 14.6 which is very high and repeat level within 3 months period. will take care of your testing your blood sugar. You underwent imaging of you chest and abdomen which revealed a mass in your right lung.Please follow with Dr. Hurtado Pulmonary doctor and repeat the cat scan within one month for follow up. to r/o cancer. Please follow up with Dr Clayton, oncologist, for follow up. Please see him within one month period for further assessing for lung mass. Please take the following medications below which will be sent to your pharmacy - Diflucan 20 MG Daily for 20 days starting today November 12, 2018. This is for the fungus that was seen in your sesophjagus - Lantus 14 Units SQ Daily in the morning - Losartan 100 mg DAILY -Valacyclovir 500 TWICE a day for 2 more days - continue glimiperide medication You received the first dose of your Hepatitis B vaccine series. Please follow up with you r primary care doctor to complete the series accordingly. Please follow up with the Public Relations Analyst, Dr Gould so that you make be further worked up for a mass that was found on your appendix during imaging of your abdomen. A referral has been attached in your discharge paper work. Please follow up with Dr Clayton, Oncologist, to follow up on the mass that was found in your lungs which could be cancerous. A referral has been attached in your discharge paperwork. Please follow up with your Flash Drier Operator, in 1 week, Dr Perez. Please follow up with the surgical garment inspector, Dr Pena this week. Please STOP taking your Norvasc medication. Please resume all of your other home medications as previously prescribed. If you experience chest pain, shortness of breath, dizziness/lightheadedness, nausea or vomiting please return to the emergency department immediately. Referrals: Vinh Gould DO [Staff Physician] - Alex Gutierres MD [Staff Physician] - Kamlesh Pena MD [Staff Physician] - Demetrius Clayton MD [Staff Physician] - Kelsey Perez MD [Staff Physician] - Disposition: VNS/HOME HEALTH CARE - Home Medications Comprehensive Discharge Medication List: Ambulatory Orders Brimonidine Tartrate [Alphagan 0.15% -] 1 drop OU BID 06/02/18 Lactobacillus Acidophilus [Bacid -] 1 tab PO DAILY #30 tab 06/17/18 Ferrous Sulfate [Feosol] 325 mg PO BID 07/15/18 Albuterol Sulfate [Proair Hfa] 8.5 gm IH DAILY 07/21/18 Apixaban [Eliquis] 5 mg PO BID 07/21/18 Furosemide [Lasix -] 20 mg PO BID 10/31/18 Atorvastatin Ca [Lipitor] 20 mg PO DAILY 11/04/18 Glimepiride 2 mg PO BID 11/04/18 Prednisone [Deltasone] 20 mg PO BID 11/04/18 Cholecalciferol (Vitamin D3) [Vitamin D3] 1 tab PO DAILY 11/05/18 Folic Acid 1 mg PO DAILY 11/05/18 Fluconazole [Diflucan -] 100 mg PO DAILY #19 tablet 11/12/18 Insulin Glargine,Hum.rec.anlog [Lantus Solostar PEN (NF)] 14 units SQ DAILY #10 pen 11/12/18 Losartan Potassium [Cozaar -] 100 mg PO DAILY #30 tablet 11/12/18 Miscellaneous Medical Supply [Glucometer Device] 1 each .ROUTE ASDIR #1 kit Miscellaneous Medical Supply [Glucometer Test Strips #100] 1 each .ROUTE ASDIR # 1 box 11/12/18 Miscellaneous Medical Supply [Outpatient Order] 1 each ASDIR #1 misc Valacyclovir HCl [Valtrex -] 500 mg PO BID #4 tablet 11/12/18 This patient is new to me today: No Emergency Visit: Yes ED Registration Date: 10/31/18 Care time: The patient presented to the Emergency Department on the above date and was hospitalized for further evaluation of their emergent condition. Critical Care patient: No - Discharge Referral Referred to [facility] Med [facility].: No
--- NOTE | 2018-11-12 16:31 | PATH ---
Cytology Non-Gynecological Report Patient Name: EMILE MADRIGAL Med. Rec. #: [id number] /Age/Gender: 1945 (Age: 73) / F Account: [id number] Location: [address] [place] [address]/[facility] Taken: 11/11/2018 Received: 11/11/2018 Reported: 11/12/2018 Physicians: Yefri Benítez D.O. Specimen(s) Received ESOPHAGEAL BRUSHING Clinical History Rule out esophageal candidiasis Final Diagnosis ESOPHAGEAL BRUSHING FOR CYTOLOGY: SATISFACTORY FOR EVALUATION. SQUAMOUS CELLS WITH REACTIVE CELLULAR CHANGES. RANJAN SPECIES. SCATTERED SQUAMOUS CELLS WITH REACTIVE CELLULAR CHANGES NOTED. NEUTROPHILS PRESENT. FUNGAL FORMS HIGHLIGHTED BY PAS FUNGAL STAIN MORPHOLOGICALLY CONSISTENT WITH RANJAN SPECIES PRESENT. Electronically Signed Camelia Ferguson M.D. Gross Description Received one slide and brush in approximately 15 cc of 50% alcohol. One additional slide prepared and Pap stained. Cellblock prepared.
--- NOTE | 2018-11-12 17:53 | PATH ---
Surgical Pathology Report Patient Name: EMILE MADRIGAL [facility]. Rec. #: [id number] /Age/Gender: 1945 (Age: 73) / F Account: [id number] Location: [address] [place] [address]/[facility] Taken: 11/11/2018 Received: 11/11/2018 Reported: 11/12/2018 Physicians: Karina Castillo M.D. Specimen(s) Received A: BX ANTRUM B: BX BODY OF STOMACH C: BX OF FUNDUS POLYP D: BX OF FUNDUS PLAQUES Clinical History Dysphagia Postoperative diagnosis: Esophageal janine, fundic polyps, esophagitis, gastritis Final Diagnosis A. ANTRUM, BIOPSY: GASTRIC MUCOSA WITH CHRONIC GASTRITIS AND REACTIVE GASTROPATHY. IMMUNOSTAIN FOR H. PYLORI IS NEGATIVE. NEGATIVE FOR INTESTINAL METAPLASIA. B. BODY OF STOMACH, BIOPSY: GASTRIC MUCOSA WITH MILD CHRONIC GASTRITIS. IMMUNOSTAIN FOR H. PYLORI IS NEGATIVE. NEGATIVE FOR INTESTINAL METAPLASIA. C. FUNDUS POLYP, BIOPSY: FUNDIC GLAND GASTRIC MUCOSA WITH FOCALLY DILATED GLANDS AND FOVEOLAR HYPERPLASIA. IMMUNOSTAIN FOR H. PYLORI IS NEGATIVE. NEGATIVE FOR INTESTINAL METAPLASIA. D. FUNGUS PLAQUES, BIOPSY: POLYPOID GASTRIC MUCOSA WITH MILD CHRONIC GASTRITIS AND FOCAL DILATED GLANDS. IMMUNOSTAIN FOR H. PYLORI IS NEGATIVE. NEGATIVE FOR INTESTINAL METAPLASIA. Electronically Signed Frandy Turner M.D. Gross Description A. Received in formalin, labeled "antrum biopsy" are 3 zuñiga, irregular portions of soft tissue ranging from 0.1-0.4 cm. in greatest dimension. The specimens are submitted in toto in one cassette. B. Received in formalin, labeled "body of stomach biopsy" are 3 zuñiga, irregular portions of soft tissue ranging from 0.1-0.4 cm. in greatest dimension. The specimens are submitted in toto in one cassette. C. Received in formalin, labeled "fundus biopsy" are 2 zuñiga, irregular portions of soft tissue measuring 0.2 and 0.3 cm. in greatest dimension. The specimens are submitted in toto in one cassette. D. Received in formalin, labeled "plaque in fundus" is a zuñiga, irregular portion of soft tissue measuring 0.4 cm. in greatest dimension. The specimen is submitted in toto in one cassette. /11/11/2018 [facility]11/11/2018
== END 2018-11-12 15:08 | disposition home health service (06) | DRG 637 ==
LOC: JER 17:23 → JERBED 22:39 → JICU 11-01 02:36 → J5S 11-01 17:51 → JICU 11-02 04:31 → J4W 11-04 20:24 → J5S 11-07 13:36
PROVIDERS: ADMIT Internal Medicine; ATTEND Internal Medicine
PROC: 0DB68ZX Excision of Stomach, Via Natural or Artificial Opening Endoscopic, Diagnostic (ICD-10-PCS; 2018-11-11)
PROC: 0DB98ZX Excision of Duodenum, Via Natural or Artificial Opening Endoscopic, Diagnostic (ICD-10-PCS; 2018-11-11)
PROC: 0DB98ZX Excision of Duodenum, Via Natural or Artificial Opening Endoscopic, Diagnostic (ICD-10-PCS; principal; 2018-11-11 13:30)
DX: E11.00 Type 2 diabetes mellitus with hyperosmolarity without nonketotic hyperglycemic-hyperosmolar coma (NKHHC) (principal); J18.9 Pneumonia, unspecified organism; I24.8 Other forms of acute ischemic heart disease; E87.2 Acidosis; N17.9 Acute kidney failure, unspecified; I13.0 Hypertensive heart and chronic kidney disease with heart failure and stage 1 through stage 4 chronic kidney disease, or unspecified chronic kidney disease; I50.22 Chronic systolic (congestive) heart failure; I47.2 Ventricular tachycardia; B37.81 Candidal esophagitis; R18.8 Other ascites; I48.91 Unspecified atrial fibrillation; J45.909 Unspecified asthma, uncomplicated; D64.9 Anemia, unspecified; E78.5 Hyperlipidemia, unspecified; I49.5 Sick sinus syndrome; E86.0 Dehydration; R91.1 Solitary pulmonary nodule; E88.09 Other disorders of plasma-protein metabolism, not elsewhere classified; I27.20 Pulmonary hypertension, unspecified; R50.9 Fever, unspecified; N28.1 Cyst of kidney, acquired; I48.0 Paroxysmal atrial fibrillation; N05.1 Unspecified nephritic syndrome with focal and segmental glomerular lesions; E11.22 Type 2 diabetes mellitus with diabetic chronic kidney disease; N18.3 Chronic kidney disease, stage 3 (moderate); R79.89 Other specified abnormal findings of blood chemistry; R10.9 Unspecified abdominal pain; A60.09 Herpesviral infection of other urogenital tract; K29.70 Gastritis, unspecified, without bleeding; R91.8 Other nonspecific abnormal finding of lung field; R93.5 Abnormal findings on diagnostic imaging of other abdominal regions, including retroperitoneum; R94.5 Abnormal results of liver function studies; L93.2 Other local lupus erythematosus; T50.905A Adverse effect of unspecified drugs, medicaments and biological substances, initial encounter; D63.8 Anemia in other chronic diseases classified elsewhere; I45.10 Unspecified right bundle-branch block; J44.9 Chronic obstructive pulmonary disease, unspecified; K63.5 Polyp of colon
CPT/HCPCS: 36415; 71045-TC-FY; 71250-TC; 74177-TC; 74240-TC-FY; 76705-TC; 80048; 80053; 80076; 81003; 81015; 82009; 82272; 82378; 82533; 82550; 82607; 82728; 82746; 82784; 82803; 82962; 82977; 83021; 83036; 83540; 83550; 83605; 83615; 83735; 83880; 84100; 84155; 84165; 84443; 84484; 85025; 85027; 85044; 85610; 85651; 85660; 85730; 86803; 87040; 87086; 87324; 87449; 87804; 88104; 88305-TC; 93005; 93010; 93970-TC; 97116-GP; 97161-GP; 99285-25; J0131; J3480; J7030; Q9967

== ENCOUNTER 2020-06-29 01:10 | Inpatient (IN) | payer OTHER ==
[2020-06-29 01:47] VITALS: BMI 20.7
--- OUTSIDE RECORDS SUMMARY | 2020-06-29 01:48 | XMS ---
:1945 Author Organization [facility] Care Team Providers Name Role Phone Other, Doctor Unavailable Unavailable Shine, Brian Unavailable Unavailable Re-disclosure Warning The records that you are about to access may contain information from federally- assisted alcohol or drug abuse programs. If such information is present, then the following federally mandated warning applies: This information has been disclosed to you from records protected by federal confidentiality rules (42 CFR part 2). The federal rules prohibit you from making any further disclosure of this information unless further disclosure is expressly permitted by the written consent of the person to whom it pertains or as otherwise permitted by 42 CFR part 2. A general authorization for the release of medical or other information is NOT sufficient for this purpose. The Federal rules restrict any use of the information to criminally investigate or prosecute any alcohol or drug abuse patient.The records that you are about to access may contain highly sensitive health information, the redisclosure of which is protected by Article 27-F of the [facility] Public Health law. If you continue you may haveaccess to information: Regarding HIV / AIDS; Provided by facilities licensed or operated by the [facility] Office of Mental Health; or Provided by the [facility] Office for People With Developmental Disabilities. If such information is present, then the following [facility] mandated warning applies: This information has been disclosed to you from confidential records which are protected by state law. State law prohibits you from making any further disclosure of this information without the specific written consent of the person to whom it pertains, or as otherwise permitted by law. Any unauthorized further disclosure in violation of state law may result in a fine or longterm sentence or both. A general authorization for the release of medical or other information is NOT sufficient authorization for further disclosure. Encounters Encounter Providers Location Date Indications Data Source(s ) Emergency Attender: Brian [id number] 09/18/2019 PT STATES HIGH BP [facility] GustaveAttender: 01:47:00 PM [facility] Doctor Other EST - 09/18/2019 10:42:00 PM EST PT STATES HIGH BP Patient discharged. 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 [id number] SP [id number] Emblem Commercial [id number] Health HIP 1 VIP Medicare Medicare [facility] Medicare [id number] 1 [id number] Self Pay Self Pay SELF PAY 1 SELF PAY Emblem Commercial [id number] Health HIP 1 VIP DRYWALL STRIPPER Medicare [facility] MEDICARE [id number] SP [id number] HIP DRYWALL STRIPPER [id number] SP [id number] 1 Problems, Conditions, and Diagnoses Code Display Name Description Problem Type Effective Dates Data Source(s) I10 Uncontrolled Uncontrolled 61567-2 09/18/2019 [facility] hypertension hypertension 12:00:00 AM EST [facility]alt [facility] System R51 Headache Headache 64604-5 09/18/2019 [facility] 12:00:00 AM EST Health Sy stem PT STATES HIGH BP PT STATES HIGH BP Diagnosis 09/18/2019 [facility] 01:47:00 PM EST [facility] I11.0 Hypertensive heart Hypertensive heart Diagnosis 0 [facility] disease with heart disease with heart 01:47:00 PM EST [facility] failure failure I50.9 Heart failure, Heart failure Diagnosis 09/18/2019 [facility] unspecified 01:47:00 PM EST [facility] R51 Headache Headache Diagnosis 09/18/2019 [facility] 01:47:00 PM [facility] spital I10 Essential Uncontrolled Diagnosis 09/18/2019 [facility] (primary) hypertension 01:47:00 PM [facility] hypertension Surgeries/Procedures Procedure Description Date Indications Data Source(s) Computerized axial 09/18/2019 [facility] tomography of brain 06:05:00 PM EST Syste m (procedure) - 09/18/2019 06:05:00 PM EST Results ID Date Data Source [id number] 09/18/2019 11:42:56 PM EST [facility] Name Value Range Interpretation Description Data Sup porting Code Source(s) Document(s ) aPTT in Blood 37.3 Above high Activated [facility] by Coagulation {Seconds normal Partial Health assay } Thromboplastin System Time ID Date Data Source [id number] 09/18/2019 11:42:56 PM EST [facility] Name Value Range Interpretation Description Data Sup porting Code Source(s) Document(s ) Prothrombintim 13.40 Above high normal Prothrombin [facility] surjit e(PT) {seconds time (PT) Health System } INR in Blood 1.28 Above high normal INR Result [facility] {Ratio} Health System assay Normal = 0.7-1.1Therapeutic = 2.0-3.0Mec hanical Heart = 3.0-4.5 ID Date Data Source [id number] 09/18/2019 11:42:56 PM EST [facility] Name Value Range Interpretation Description Data Sup porting Code Source(s) Document(s ) Erythrocytes 1.89 Below low normal RBC Count [facility] [#/volume] in {10^6_uL Health System Blood by } Automated count Leukocytes 7.4 Normal (applies WBC Count [facility] [#/volume] in {10^3_uL to non-numeric Health Syst em Unspecified } results) specimen by Automated count Hematocrit 19.0 % Below lower panic Hematocrit [facility] [Volume limits Health System Fraction] of Blood Result Reporting|Telephone|dr. cruz|03/2018 at 1:10 AMCalled to:dr. Velarde Name:Yajaira by:dr. woodard / 1:10 AM Hemoglobin 6.0 {gm/dL} Below lower Hemoglobin [facility] [Mass/volume] in Blood panic limits Syst em Result Reporting|Telephone|dr. cruz|03/2018 at 1:10 AMCalled to:dr. Velarde Name:Yajaira by:dr. woodard / 1:10 AM Erythrocyte mean 100.5 fl Above high MCV [facility] corpuscular volume normal System [Entitic volume] by Automated count Erythrocyte mean 31.7 pg Normal MCH [facility] corpuscular (applies to System hemoglobin [Entitic non-numeric mass] by Automated results) count Erythrocyte mean 31.6 {gm/dL} Below low MCHC [facility] corpuscular normal System hemoglobin concentration [Mass/volume] by Automated count Platelets [#/volume] 276 Normal Platelet Count [facility] in Plasma by {10^3_uL} (applies to System Automated count non-numeric results) Erythrocyte 16.9 % Above high RDW-CV [facility] distribution width normal System [Entitic volume] by Automated count Monocytes [#/volume] 0.4 Normal Monocyte # [facility] in Blood by Manual {10^3_uL} (applies to System count non-numeric results) Eosinophils 0.11 Normal Eosinophil # [facility] [#/volume] in Blood {10^3_uL} (applies to System non-numeric results) Basophils [#/volume] 0.01 Normal Basophil # [facility] in Blood by {10^3_uL} (applies to System Automated count non-numeric results) Neutrophils 6.2 Normal Neutrophil # [facility] [#/volume] in Body {10^3_uL} (applies to System fluid non-numeric results) Platelet mean volume 11.1 fl Above high MPV [facility] [Entitic volume] in normal System Blood by Automated count Lymphocyte percent 0.6 Below low Lymphocyte # [facility] differential count {10^3_uL} normal System (procedure) Monocytes/100 4.9 % Below low Monocyte % [facility] leukocytes in Blood normal System Basophils/100 0.1 % Normal Basophil % [facility] leukocytes in (applies to System Unspecified specimen non-numeric by Manual count results) Neutrophils/100 84.4 % Above high Neutrophil % [facility] leukocytes in Blood normal System by Automated count Eosinophils/100 1.5 % Normal Eosinophil % [facility] leukocytes in (applies to System Unspecified specimen non-numeric results) ImmatureGranulocytes 0.03 Normal Immature [facility] # {10^3_uL} (applies to Granulocytes # System non-numeric results) Nucleated 0.0 Normal NRBC % [facility] erythrocytes {/100_WBC} (applies to System [#/volume] in Body non-numeric fluid results) Lymphocytes 8.7 % Below low Lymphocyte % [facility] [#/volume] in Blood normal System by Automated count ImmatureGranulocytes 0.4 % Normal Immature [facility] % (applies to Granulocytes % System non-numeric results) NRBC# 0.00 Below low NRBC # [facility] {10^3_uL} normal System ID Date Data Source [id number] 09/18/2019 11:42:56 PM EST [facility] Name Value Range Interpretation Description Data Source(s ) Supporting Code Document(s ) B-TypeNa 818.1 Above high normal B-Type [facility] triuetic pg/mL Natriuetic [facility] System Peptide- Peptide - MV MVOnly Only ID Date Data Source [id number] 09/18/2019 11:42:56 PM EST [facility] Name Value Range Interpretation Description Data Sup porting Code Source(s) Document(s ) Potassium 3.6 Normal (applies Potassium, [facility] [Mass/volume] in mmol/L to non-numeric Serum Health Serum or Plasma results) System Chloride 101 Normal (applies Chloride, [facility] [Moles/volume] in mmol/L to non-numeric Serum Health Serum or Plasma results) System Sodium 136 Below low normal Sodium, Serum [facility] [Moles/volume] in mmol/L Health Serum or Plasma System Urea nitrogen 13 Normal (applies Blood Urea [facility] [Mass/volume] in mg/dl to non-numeric Nitrogen, Health Serum or Plasma results) Serum System TotalProtein 6.4 Normal (applies Total Protein [facility] mg/dl to non-numeric Health results) System Carbon dioxide, 26.0 Normal (applies CO2, Serum [facility] total mmol/L to non-numeric Health [Moles/volume] in results) System Serum or Plasma Glucose 102 Normal (applies Glucose, [facility] [Mass/volume] in mg/dL to non-numeric Serum Health Serum or Plasma results) System Alkaline 91 Normal (applies Alkaline [facility] phosphatase {IU/L} to non-numeric Phosphatase, Health isoenzymes results) Serum System [Enzymatic activity/volume] in Serum or Plasma by Heat stability Creatinine 1.00 Normal (applies Creatinine, [facility] [Mass/volume] in mg/dl to non-numeric Serum Health Serum or Plasma results) System Bilirubin.total 0.7 Normal (applies Bilirubin, [facility] [Mass/volume] in mg/dl to non-numeric Serum Total Health Serum or Plasma results) System Albumin 3.1 Below low normal Albumin, [facility] [Mass/volume] in {gm/dl} Serum Health Serum or Plasma System I.Phosphorus 2.9 Normal (applies I. Phosphorus [facility] mg/dl to non-numeric Health results) System DirectBilirubin 0.4 Normal (applies Direct [facility] mg/dl to non-numeric Bilirubin Health results) System Aspartate 28 Normal (applies Aspartate [facility] aminotransferase {IU/L} to non-numeric Transaminase, Heal th [Enzymatic results) Serum System activity/volume] in Serum or Plasma by With P-5'-P Alanine 19 Normal (applies Alanine [facility] aminotransferase {IU/L} to non-numeric Aminotransfer Heal th [Enzymatic results) ase, Serum System activity/volume] in Serum or Plasma Urate 3.4 Normal (applies Uric Acid, [facility] [Mass/volume] in mg/dl to non-numeric Serum Health Serum or Plasma results) System Calcium 8.7 Normal (applies Calcium, [facility] [Mass/volume] in mg/dl to non-numeric Total Serum Health Serum or Plasma results) System A/GRatio 0.94 Normal (applies A/G Ratio [facility] to non-numeric Health results) System Anion gap in Serum 9.00 Normal (applies Anion Gap [facility] surjit or Plasma mmol/L to non-numeric Health results) System Glomerular 54.05 Normal (applies GFR [facility] filtration to non-numeric Health rate/1.73 sq results) System M.predicted [Volume Rate/Area] in Serum or Plasma by Creatinine-based formula (CKD-EPI) eGFR will provide clinicians with a more accurate indicator of renal function then the serum creatinine. The eGFR is automa tically calculated from an empiric formula (endorsed by the National Kid[employer] ion) which incorporates age, sex, and race.Clinicians may notice surprisingly low GFR's with serum creatinine valueswithin normal range- particularly in elderly wo men (with low muscle mass).In the hospital setting, the eGFR should add an element of safety in drug dosing, in assessing the risk of IV contrast administration, and in assessing vascular risk.The NKF staging system is as follows:Normal: eGFR >90 with no kidney markersStage 1: eGFR >90 with kidney markers*Stage 2: eGFR 60- 89Stage 3: eGFR 30-59Stage 4: eGFR 15-29Stage 5: eGFR <15 (usually requir ing dialysis)*Markers include: Proteinuria, Hematuria, abnormal imaging-studies, or other blood or urine test abnormalities ID Date Data Source [id number] 09/18/2019 11:42:56 PM EST [facility] Name Value Range Interpretation Description Data Sup porting Code Source(s) Document(s ) pH 7.375 Normal (applies pH [facility] {pH_unit to non-numeric Health s} results) System TCO2 29.2 Normal (applies TCO2 [facility] mmol/L to non-numeric Health results) System Oxygen [Partial 65.6 Below low normal pO2, Aterial [facility] pressure] in {mm_Hg} Health Arterial blood System Carbon dioxide 51.1 Above high pCO2, [facility] [Partial {mm_Hg} normal Ar[facility] pressure] in System Arterial blood Bicarbonate 29.8 Above high HCO3 [facility] [Moles/volume] in mmol/L normal Health Venous blood System Lactate 0.6 Normal (applies Lactate [facility] [Mass/volume] in mmol/L to non-numeric Health Serum or Plasma results) System [id number] 91.9 % Below low normal O2 Saturation [facility] IonizedCalcium 1.21 Normal (applies Ionized [facility] mmol/L to non-numeric Calcium Health results) System BaseExcess. 4.6 Above high Base Excess. [facility] mmol/L normal Health System ID Date Data Source [id number] 09/18/2019 11:42:56 PM EST [facility] Name Value Range Interpretation Description Data Source(s ) Supporting Code Document(s ) Troponin 0.01 Normal (applies to Troponin I [facility] IQuantit ng/mL non-numeric Quantitative - Health System ative-MV results) MV Only Only ID Date Data Source [id number] 09/18/2019 11:42:56 PM EST [facility] Name Value Range Interpretation Description Data Sup porting Code Source(s) Document(s ) Bacteria NO GROWTH Culture [facility] identified in Bacteria Blood Health Syst em Blood by Aerobe culture ID Date Data Source [id number] 09/18/2019 11:42:56 PM EST [facility] Name Value Range Interpretation Description Data Sup porting Code Source(s) Document(s ) Bacteria NO GROWTH Culture [facility] identified in Bacteria Blood Health Syst em Blood by Aerobe culture ID Date Data Source [id number] 09/18/2019 11:42:56 PM EST [facility] Name Value Range Interpretation Description Data Sup porting Code Source(s) Document(s ) Color YELLOW Normal (applies Color [facility] to non-numeric Health results) System Specific gravity 1.010 Normal (applies Urine Specific [facility] of Urine to non-numeric [facility] results) System pH.. 6.5 Normal (applies pH.. [facility] {pH_units} to non-numeric Health results) System Appearance of SL CLOUDY Normal (applies Urine [facility] Urine to non-numeric Appearance Health results) System Glucose,UA NEGATIVE Normal (applies Glucose, UA [facility] to non-numeric Health results) System Protein 100 mg/dl Normal (applies Protein [facility] [Mass/volume] in to non-numeric Health Serum or Plasma results) System BilirubinUrine NEGATIVE Normal (applies Bilirubin [facility] to non-numeric Urine Health results) System Urobilinogen 0.2 mg/dL Normal (applies Urobilinogen [facility] [Mass/volume] in to non-numeric UA Health Urine results) System Ketones NEGATIVE Normal (applies Ketones UA [facility] [Mass/volume] in to non-numeric Health Urine results) System Nitrate+Nitrite NEGATIVE Normal (applies Nitrite [facility] [Mass/volume] in to non-numeric Health Unspecified results) System specimen Leukocyte TRACE Abnormal Leukocyte [facility] esterase (applies to Esterase Health [Units/volume] non-numeric Concentration System in Urine results) RedBloodCells 50 {/HPF} Normal (applies Red Blood [facility] to non-numeric Cells Health results) System Leukocytes 20 {/HPF} Normal (applies White Blood [facility] [#/volume] in to non-numeric Cells Health Unspecified results) System specimen by Automated count UrineBlood LARGE Abnormal Urine Blood [facility] (applies to Health non-numeric System results) ID Date Data Source [id number] 09/18/2019 11:42:56 PM EST [facility] Name Value Range Interpretation Description Data Sup porting Code Source(s) Document(s ) Deprecated NO GROWTH Aerobic [facility] Bacteria Culture, Urine Health System identified in Urine by Aerobe culture ID Date Data Source [id number] 09/18/2019 11:42:56 PM EST [facility] Speckled top tube Name Value Range Interpretation Description Data Sup porting Code Source(s) Document(s ) MycoplasmaPneumoniae Negative Normal (applies Mycoplasma [facility] to non-numeric Pneumoniae Health results) System Method: Enzyme Immunoassay (EIA) ID Date Data Source [id number] 09/18/2019 11:42:56 PM EST [facility] Name Value Range Interpretation Description Data Source(s ) Supporting Code Document(s ) LacticAc 0.96 Normal (applies to Lactic Acid, [facility] id,Plasm {mEq/L} non-numeric Plasma *[facility] a*[facility] results) ASHWIN ONLY* ERNONONL Y* ID Date Data Source [id number] 09/18/2019 11:42:56 PM EST [facility] Name Value Range Interpretation Description Data Sup porting Code Source(s) Document(s ) D Ab [Titer] in Positive Normal (applies Rh [facility] Serum or Plasma to non-numeric Health results) System Type B Normal (applies Type [facility] to non-numeric Health results) System AntibodyScreen Negative Normal (applies Antibody [facility] to non-numeric Screen Health results) System ID Date Data Source [id number] 09/18/2019 11:42:56 PM EST [facility] Name Value Range Interpretation Description Data Source(s ) Supporting Code Document(s ) Blood,Oc Negative Normal (applies to Blood, Occult [facility] cultFece non-numeric Feces Health System s results) ID Date Data Source [id number] 09/18/2019 11:42:56 PM EST [facility] Name Value Range Interpretation Description Data Sup porting Code Source(s) Document(s ) Transferrin 201.0 Normal (applies Transferrin, [facility] [Mass/volume] mg/dl to non-numeric Serum Health Syst em in Serum or results) Plasma ID Date Data Source [id number] 09/18/2019 11:42:56 PM EST [facility] Name Value Range Interpretation Description Data Sup porting Code Source(s) Document(s ) Iron/Iron 251.25 Normal (applies to Total Iron [facility] binding ug/dL non-numeric Binding Health System capacity.to results) Capacity-(RO) sherri [Mass Ratio] in Serum or Plasma %Saturation 12.18 % Normal (applies to % Saturation [facility] non-numeric [facility] System results) Iron. 31 ug/dL Below low normal Iron. [facility] ID Date Data Source [id number] 09/18/2019 11:42:56 PM EST [facility] Name Value Range Interpretation Description Data Sup porting Code Source(s) Document(s ) Ferritin 259.6 Normal (applies Ferritin, [facility] [Mass/volume ng/ml to non-numeric Serum Health Syste m ] in Serum results) or Plasma ID Date Data Source [id number] 09/18/2019 11:42:56 PM EST [facility] Name Value Range Interpretation Description Data Sup porting Code Source(s) Document(s ) Cobalamin 761 Normal (applies Vitamin B12, [facility] (Vitamin B12) pg/ml to non-numeric Serum Health Syst em [Mass/volume] results) in Serum or Plasma ID Date Data Source [id number] 09/18/2019 11:42:56 PM EST [facility] Name Value Range Interpretation Description Data Source(s ) Supporting Code Document(s ) Folate 14.30 Normal (applies to Folate, Serum [facility] [Mass/volu ng/ml non-numeric Health System me] in results) Serum or Plasma ID Date Data Source [id number] 09/18/2019 11:42:56 PM EST [facility] Name Value Range Interpretation Description Data Sup porting Code Source(s) Document(s ) Potassium 3.4 Below low normal Potassium, [facility] [Mass/volume] in mmol/L Serum Health Serum or Plasma System Sodium 138 Normal (applies Sodium, Serum [facility] [Moles/volume] in mmol/L to non-numeric Health Serum or Plasma results) System Carbon dioxide, 29.0 Normal (applies CO2, Serum [facility] total mmol/L to non-numeric Health [Moles/volume] in results) System Serum or Plasma Chloride 97 Below low normal Chloride, [facility] [Moles/volume] in mmol/L Serum Health Serum or Plasma System Urea nitrogen 12 Normal (applies Blood Urea [facility] [Mass/volume] in mg/dl to non-numeric Nitrogen, Health Serum or Plasma results) Serum System TotalProtein 7.3 Normal (applies Total Protein [facility] mg/dl to non-numeric Health results) System Glucose 103 Normal (applies Glucose, [facility] [Mass/volume] in mg/dL to non-numeric Serum Health Serum or Plasma results) System Creatinine 1.10 Normal (applies Creatinine, [facility] [Mass/volume] in mg/dl to non-numeric Serum Health Serum or Plasma results) System Alkaline 98 Normal (applies Alkaline [facility] phosphatase {IU/L} to non-numeric Phosphatase, [facility] isoenzymes results) Serum System [Enzymatic activity/volume] in Serum or Plasma by Heat stability Aspartate 31 Normal (applies Aspartate [facility] aminotransferase {IU/L} to non-numeric Transaminase, Heal th [Enzymatic results) Serum System activity/volume] in Serum or Plasma by With P-5'-P Bilirubin.total 1.0 Normal (applies Bilirubin, [facility] [Mass/volume] in mg/dl to non-numeric Serum Total Health Serum or Plasma results) System DirectBilirubin 0.5 Above high Direct [facility] mg/dl normal Bilirubin Health System Albumin 3.5 Below low normal Albumin, [facility] [Mass/volume] in {gm/dl} Serum Health Serum or Plasma System I.Phosphorus 3.1 Normal (applies I. Phosphorus [facility] mg/dl to non-numeric Health results) System A/GRatio 0.92 Normal (applies A/G Ratio [facility] to non-numeric Health results) System Calcium 9.4 Normal (applies Calcium, [facility] [Mass/volume] in mg/dl to non-numeric Total Serum Health Serum or Plasma results) System Alanine 22 Normal (applies Alanine [facility] aminotransferase {IU/L} to non-numeric Aminotransfer Heal th [Enzymatic results) ase, Serum System activity/volume] in Serum or Plasma Urate 3.4 Normal (applies Uric Acid, [facility] [Mass/volume] in mg/dl to non-numeric Serum Health Serum or Plasma results) System Anion gap in Serum 12.00 Normal (applies Anion Gap [facility] surjit or Plasma mmol/L to non-numeric Health results) System Glomerular 48.42 Normal (applies GFR [facility] filtration to non-numeric Health rate/1.73 sq results) System M.predicted [Volume Rate/Area] in Serum or Plasma by Creatinine-based formula (CKD-EPI) eGFR will provide clinicians with a more accurate indicator of renal function then the serum creatinine. The eGFR is automa tically calculated from an empiric formula (endorsed by the [employer] ion) which incorporates age, sex, and race.Clinicians may notice surprisingly low GFR's with serum creatinine valueswithin normal range- particularly in elderly wo men (with low muscle mass).In the hospital setting, the eGFR should add an element of safety in drug dosing, in assessing the risk of IV contrast administration, and in assessing vascular risk.The NKF staging system is as follows:Normal: eGFR >90 with no kidney markersStage 1: eGFR >90 with kidney markers*Stage 2: eGFR 60- 89Stage 3: eGFR 30-59Stage 4: eGFR 15-29Stage 5: eGFR <15 (usually requir ing dialysis)*Markers include: Proteinuria, Hematuria, abnormal imaging-studies, or other blood or urine test abnormalities ID Date Data Source [id number] 09/18/2019 11:42:56 PM EST [facility] Name Value Range Interpretation Description Data Sup porting Code Source(s) Document(s ) Magnesium 1.5 Normal (applies Magnesium, [facility] [Mass/volume] {mEq/L} to non-numeric Serum Health Syst em in Serum or results) Plasma ID Date Data Source [id number] 09/18/2019 11:42:56 PM EST [facility] Name Value Range Interpretation Description Data Sup porting Code Source(s) Document(s ) Triglyceride 46 mg/dl Normal (applies Triglycerides, [facility] [Mass/volume] to non-numeric Serum Health in Serum or results) System Plasma Optimal = < 100 mg/dLBoderline High = 15 0 - 199 mg/dLHigh = 200 - 499 mg/dLVery High = > 500 mg/dL Cholesterol 109 mg/dl Normal (applies Cholesterol, Serum [facility] [Mass/volume] in to non-numeric Health S ystem Serum or Plasma results) <200 mg/dL = [id number] - 239 md/dL = Borderline>240 mg/dL = High Risk Cholesterol in HDL 52.0 mg/dL Normal (applies HDL Cholestero l, [facility] [Mass/volume] in to non-numeric Serum Health S ystem Serum or Plasma results) Cholesterol in LDL 47.8 mg/dL Normal (applies Low Density [facility] [Mass/volume] in to non-numeric Lipoprotein, Healt h System Serum or Plasma results) Calculated OPTIMAL: LESS THAN 100 mg/dLNEAR OPTIMAL : 100 - 129 mg/dLBODERLINE HIGH: 130 - 150 mg/dL CHDRisk 2.10 Below low normal CHD Risk [facility] Cholesterol in VLDL 9.2 Normal (applies to VLDL, Serum [facility] [Mass/volume] in Serum non-numeric Syste m or Plasma results) ID Date Data Source [id number] 09/18/2019 11:42:56 PM EST [facility] Name Value Range Interpretation Description Data Sup porting Code Source(s) Document(s ) AFBCulture. ISOLATE: Normal (applies AFB Culture. [facility] MYCOBACTERIUM to non-numeric Health AVIUM COMPLEX results) System FINAL 08/19/18 Previously released as (1) on 07/15/2018, 02:[place] [id number] - (1) - 07/14/18 Culture Positive for AFB CULTURES ARE HELD AND OBSERVED FOR A FULL 8 WEEKS. ISOLATE: MYCOBACTERIUM AVIUM COMPLEXPrevious ly released as (2) on 06/25/2018, 03:00 [place] [id number] - (2) - PLATED DirectMolecula 06/25/18 MTB Normal (applies Direct [facility] rDetection Complex target to non-numeric Molecular Health is not detected results) Detection System FINAL 06/25/18 Previously released as (1) on 06/25/2018, 03:00 [place] [id number] - (1) - PLATED KinyounSmear 06/24/18 NO Normal (applies Kinyoun [facility] ACID FAST to non-numeric Smear Health BACILLI SEEN results) System FINAL 06/24/18M.TUBERC ULOSIS COMPLEX RNA07/14/18 NOT DETECTED FINAL 07/14/18M.AVIUM COMPLEX RNA07/14/18 DETECTED ON PRIMARY CULTURE FINAL 07/14/18 Previously released as (1) on 06/25/2018, 03:[place] [id number] - (1) - 06/24/18 NO ACID FAST BACILLI SEEN FINAL 06/24/18 ID Date Data Source [id number] 09/18/2019 11:42:56 PM EST [facility] Name Value Range Interpretation Description Data Sup porting Code Source(s) Document(s ) Influenza virus Negative Normal (applies Flu A Viral [facility] A RNA [Presence] to non-numeric RNA Health in Unspecified results) System specimen by Probe and target amplification method Influenza virus Negative Normal (applies Flu B Viral [facility] B RNA [Presence] to non-numeric RNA Health in Unspecified results) System specimen by Probe and target amplification method ID Date Data Source [id number] 09/18/2019 11:42:56 PM EST [facility] Name Value Range Interpretation Description Data Sup porting Code Source(s) Document(s ) Type B Normal (applies Type [facility] to non-numeric Health results) System AntibodyScreen Cancelled Antibody [facility] Second Screen Health specimen System retype only D Ab [Titer] in Positive Normal (applies Rh [facility] Serum or Plasma to non-numeric Health results) System ID Date Data Source [id number] 09/18/2019 11:42:56 PM EST [facility] Name Value Range Interpretation Description Data Sup porting Code Source(s) Document(s ) Leukocytes 9.9 Normal (applies WBC Count [facility] [#/volume] in {10^3_uL to non-numeric Health Unspecified } results) System specimen by Automated count Erythrocytes 2.54 Below low normal RBC Count [facility] [#/volume] in {10^6_uL Health Blood by } System Automated count Hemoglobin 8.0 Below low normal Hemoglobin [facility] [Mass/volume] in {gm/dL} Health Blood System Hematocrit 24.3 % Below low normal Hematocrit [facility] [Volume Health Fraction] of System Blood Erythrocyte mean 95.7 fl Normal (applies MCV [facility] corpuscular to non-numeric Health volume [Entitic results) System volume] by Automated count Erythrocyte 16.9 % Above high RDW-CV [facility] distribution normal Health width [Entitic System volume] by Automated count Erythrocyte mean 31.5 pg Normal (applies MCH [facility] corpuscular to non-numeric Health hemoglobin results) System [Entitic mass] by Automated count Erythrocyte mean 32.9 Below low normal MCHC [facility] corpuscular {gm/dL} Health hemoglobin System concentration [Mass/volume] by Automated count Platelets 318 Normal (applies Platelet Count [facility] [#/volume] in {10^3_uL to non-numeric Health Plasma by } results) System Automated count Platelet mean 10.8 fl Above high MPV [facility] volume [Entitic normal Health volume] in Blood System by Automated count Eosinophils 0.13 Normal (applies Eosinophil # [facility] [#/volume] in {10^3_uL to non-numeric Health Blood } results) System Monocytes 0.5 Normal (applies Monocyte # [facility] [#/volume] in {10^3_uL to non-numeric Health Blood by Manual } results) System count Basophils 0.03 Normal (applies Basophil # [facility] [#/volume] in {10^3_uL to non-numeric Health Blood by } results) System Automated count Neutrophils 8.1 Above high Neutrophil # [facility] [#/volume] in {10^3_uL normal Health Body fluid } System Lymphocyte 1.1 Normal (applies Lymphocyte # [facility] percent {10^3_uL to non-numeric Health differential } results) System count (procedure) Neutrophils/100 81.8 % Above high Neutrophil % [facility] leukocytes in normal Health Blood by System Automated count Eosinophils/100 1.3 % Normal (applies Eosinophil % Wayne surjit leukocytes in to non-numeric Health Unspecified results) System specimen Monocytes/100 5.4 % Below low normal Monocyte % [facility] leukocytes in Health Blood System Lymphocytes 10.8 % Below low normal Lymphocyte % [facility] [#/volume] in Health Blood by System Automated count Basophils/100 0.3 % Normal (applies Basophil % [facility] leukocytes in to non-numeric Health Unspecified results) System specimen by Manual count ImmatureGranuloc 0.4 % Normal (applies Immature [facility] ytes% to non-numeric Granulocytes % Health results) System ImmatureGranuloc 0.04 Normal (applies Immature [facility] ytes# {10^3_uL to non-numeric Granulocytes # Health } results) System Nucleated 0.0 Normal (applies NRBC % [facility] erythrocytes {/100_WB to non-numeric Health [#/volume] in C} results) System Body fluid NRBC# 0.00 Below low normal NRBC # [facility] {10^3_uL Health } System ID Date Data Source [id number] 09/18/2019 11:42:56 PM EST [facility] Name Value Range Interpretation Description Data Sup porting Code Source(s) Document(s ) KinyounSmear 06/24/18 no Normal (applies Kinyoun Smear Wayne surjit acid fast to non-numeric Health bacilli seen results) System FINAL 06/24/18 AFBCulture. 08/19/18 No Normal (applies AFB Culture. [facility] Growth of to non-numeric Health Mycobacteria results) System FINAL 08/19/18 Previously released as (1) on 06/25/2018, 03:03 [place] [id number] - (1) - plated ID Date Data Source [id number] 09/18/2019 11:42:56 PM EST [facility] Minimum 3 ml urine Name Value Range Interpretation Description Data Sup porting Code Source(s) Document(s ) S.pneu Not Normal (applies S. pneumonia [facility] moniaA DetectedReference to non-numeric AG, [place] Health G,[place] Range: Not results) System DetectedThis test was performed at:[employer] [address] [id number] Performed at:[facility] [employer] [facility], [address] [place] [id number] Jones M.D., Ph.D. ID Date Data Source [id number] 09/18/2019 11:42:56 PM EST [facility] Minimum 1 ml urine Name Value Range Interpretation Description Data Sup porting Code Source(s) Document(s ) Legion Not DetectedReference Normal (applies Legionella [facility] ellaAn Range: Not to non-numeric Antigen, Health tigen, DetectedThis assay is results) Urine System Urine specific for Legionella pneumophilaserogroup 1 which causes more than 50% of allLegionella infections. This assay will not detectinfections caused by other Legionella species/serogrps.Antig enuria may persist for prolonged periods of time.Legionella pneumophila serogroup 1 antigen can bedetected in urine within 2-3 days of infection andmay persist even after treatment. This assay doesnot detect other Legionella species or serogroups.This test was performed at:[employer] [address] [id number] Performed at:[facility] [employer] [facility], [address] [place] [id number] Jones M.D., Ph.D. ID Date Data Source [id number] 09/18/2019 11:42:56 PM EST [facility] Name Value Range Interpretation Description Data Sup porting Code Source(s) Document(s ) AFBCulture. 08/06/18 No Normal (applies AFB Culture. [facility] growth of to non-numeric Health Mycobacteria results) System FINAL 08/06/18 Previously released as (1) on 06/25/2018, 03:01 [place] [id number] - (1) - PLATED KinyounSmear 06/24/18 NO Normal (applies Kinyoun [facility] ACID FAST to non-numeric Smear Health BACILLI SEEN results) System FINAL 06/24/18 DirectMolecularD 06/24/18 MTB Normal (applies Direct Damas[facility] etection Complex to non-numeric Molecular Health target is not results) Detection System detected FINAL 06/24/18 Previously released as (1) on 06/25/2018, 03:01 [place] [id number] - (1) - PLATED ID Date Data Source [id number] 09/18/2019 11:42:56 PM EST [facility] Name Value Range Interpretation Description Data Sup porting Code Source(s) Document(s ) Lymphocyt Cancelled Lymphocyte %. [facility] e%. SMEAR WAS Health System DAMAGE UNABLE TO PERFORM DIFF Polys Cancelled Polys [facility] System Monocyte% Cancelled Monocyte %. [facility] . [facility] System ID Date Data Source [id number] 09/18/2019 11:42:56 PM EST [facility] Name Value Range Interpretation Description Data Sup porting Code Source(s) Document(s ) Leukocytes 10.0 Normal (applies WBC Count [facility] [#/volume] in {10^3_uL to non-numeric Health Unspecified } results) System specimen by Automated count Hemoglobin 7.2 Below low normal Hemoglobin [facility] [Mass/volume] in {gm/dL} Health Blood System Erythrocytes 2.27 Below low normal RBC Count [facility] [#/volume] in {10^6_uL Health Blood by } System Automated count Hematocrit 22.2 % Below low normal Hematocrit [facility] [Volume Health Fraction] of System Blood Erythrocyte mean 97.8 fl Normal (applies MCV [facility] corpuscular to non-numeric Health volume [Entitic results) System volume] by Automated count Erythrocyte mean 31.7 pg Normal (applies MCH [facility] corpuscular to non-numeric Health hemoglobin results) System [Entitic mass] by Automated count Erythrocyte 17.0 % Above high RDW-CV [facility] distribution normal Health width [Entitic System volume] by Automated count Erythrocyte mean 32.4 Below low normal MCHC [facility] corpuscular {gm/dL} Health hemoglobin System concentration [Mass/volume] by Automated count Platelets 325 Normal (applies Platelet Count [facility] [#/volume] in {10^3_uL to non-numeric Health Plasma by } results) System Automated count Monocytes 0.6 Normal (applies Monocyte # [facility] [#/volume] in {10^3_uL to non-numeric Health Blood by Manual } results) System count Platelet mean 10.5 fl Above high MPV [facility] volume [Entitic normal Health volume] in Blood System by Automated count Eosinophils 0.19 Normal (applies Eosinophil # [facility] [#/volume] in {10^3_uL to non-numeric Health Blood } results) System Basophils 0.03 Normal (applies Basophil # [facility] [#/volume] in {10^3_uL to non-numeric Health Blood by } results) System Automated count Neutrophils 8.1 Above high Neutrophil # [facility] [#/volume] in {10^3_uL normal Health Body fluid } System Neutrophils/100 81.4 % Above high Neutrophil % [facility] leukocytes in normal Health Blood by System Automated count Lymphocyte 1.0 Below low normal Lymphocyte # [facility] percent {10^3_uL Health differential } System count (procedure) Monocytes/100 6.4 % Normal (applies Monocyte % [facility] leukocytes in to non-numeric Health Blood results) System Basophils/100 0.3 % Normal (applies Basophil % [facility] leukocytes in to non-numeric Health Unspecified results) System specimen by Manual count Eosinophils/100 1.9 % Normal (applies Eosinophil % Wayne surjit leukocytes in to non-numeric Health Unspecified results) System specimen Lymphocytes 9.6 % Below low normal Lymphocyte % [facility] [#/volume] in Health Blood by System Automated count ImmatureGranuloc 0.4 % Normal (applies Immature [facility] ytes% to non-numeric Granulocytes % Health results) System Nucleated 0.0 Normal (applies NRBC % [facility] erythrocytes {/100_WB to non-numeric Health [#/volume] in C} results) System Body fluid NRBC# 0.00 Below low normal NRBC # [facility] {10^3_uL Health } System ImmatureGranuloc 0.04 Normal (applies Immature [facility] ytes# {10^3_uL to non-numeric Granulocytes # Health } results) System ID Date Data Source [id number] 09/18/2019 11:42:56 PM EST [facility] Name Value Range Interpretation Description Data Sup porting Code Source(s) Document(s ) Vancomycin 18.3 Below low normal Vancomycin [facility] [Mass/volume] ug/ml Level, [facility] in Serum or Plasma --peak ID Date Data Source [id number] 09/18/2019 11:42:56 PM EST [facility] Name Value Range Interpretation Description Data Sup porting Code Source(s) Document(s ) Sodium 138 Normal (applies Sodium, Serum [facility] [Moles/volume mmol/L to non-numeric Health Syst em ] in Serum or results) Plasma Potassium 3.3 Below low normal Potassium, [facility] [Mass/volume] mmol/L Serum Health System in Serum or Plasma Chloride 96 Below low normal Chloride, [facility] [Moles/volume mmol/L Serum Health System ] in Serum or Plasma Carbon 31.0 Above high normal CO2, Serum [facility] dioxide, mmol/L Health System total [Moles/volume ] in Serum or Plasma Previously released as 32.0 on 06/24/2018 , 09:11 AM by [id number] - TotalProtein 6.5 mg/dl Normal (applies Total Protein [facility] to non-numeric Health System results) Glucose [Mass/volume] 96 mg/dL Normal (applies Glucose, Ser um [facility] in Serum or Plasma to non-numeric Health System results) Urea nitrogen 15 mg/dl Normal (applies Blood Urea [facility] [Mass/volume] in Serum to non-numeric Nitrogen, Se rum Health System or Plasma results) Creatinine 1.20 mg/dl Normal (applies Creatinine, [facility] [Mass/volume] in Serum to non-numeric Serum He alth System or Plasma results) Bilirubin.total 1.1 mg/dl Normal (applies Bilirubin, Serum [facility] [Mass/volume] in Serum to non-numeric Total He alth System or Plasma results) Alkaline phosphatase 79 {IU/L} Normal (applies Alkaline [facility] isoenzymes [Enzymatic to non-numeric Phosphatase, Health System activity/volume] in results) Serum Serum or Plasma by Heat stability DirectBilirubin 0.6 mg/dl Above high normal Direct Bilirubin [facility] Albumin [Mass/volume] 3.1 {gm/dl} Below low normal Albumin, Serum [facility] in Serum or Plasma Health Syst em Aspartate 33 {IU/L} Normal (applies Aspartate [facility] aminotransferase to non-numeric Transaminase, [facility] System [Enzymatic results) Serum activity/volume] in Serum or Plasma by With P-5'-P I.Phosphorus 3.1 mg/dl Normal (applies I. Phosphorus [facility] to non-numeric Health System results) Calcium [Mass/volume] 8.9 mg/dl Normal (applies Calcium, Tot al [facility] in Serum or Plasma to non-numeric Serum Health System results) Alanine 17 {IU/L} Normal (applies Alanine [facility] aminotransferase to non-numeric [facility]otransferase [facility] [Enzymatic results) , Serum activity/volume] in Serum or Plasma A/GRatio 0.91 Normal (applies A/G Ratio [facility] to non-numeric Health System results) Urate [Mass/volume] in 4.7 mg/dl Normal (applies Uric Acid, Serum [facility] Serum or Plasma to non-numeric Health Sy stem results) Anion gap in Serum or 11.00 Normal (applies Anion Gap [facility] Plasma mmol/L to non-numeric Health System results) Previously released as 10.00 on 8, 09:11 AM by [id number] - Glomerular filtration 43.80 Normal ([facility] rate/1.73 sq M.predicted non-numeric results) System [Volume Rate/Area] in Serum or Plasma by Creatinine-based formula (CKD-EPI) eGFR will provide clinicians with a more accurate indicator of renal function then the serum creatinine. The eGFR is automa tically calculated from an empiric formula (endorsed by the National Kidney [employer] ion) which incorporates age, sex, and race.Clinicians may notice surprisingly low GFR's with serum creatinine valueswithin normal range- particularly in elderly wo men (with low muscle mass).In the hospital setting, the eGFR should add an element of safety in drug dosing, in assessing the risk of IV contrast administration, and in assessing vascular risk.The NKF staging system is as follows:Normal: eGFR >90 with no kidney markersStage 1: eGFR >90 with kidney markers*Stage 2: eGFR 60- 89Stage 3: eGFR 30-59Stage 4: eGFR 15-29Stage 5: eGFR <15 (usually requir ing dialysis)*Markers include: Proteinuria, Hematuria, abnormal imaging-studies, or other blood or urine test abnormalities ID Date Data Source [id number] 09/18/2019 11:42:56 PM EST [facility] System Name Value Range Interpretation Description Data Sup porting Code Source(s) Document(s ) Bacteria Micro Result Normal (applies Culture, [facility] identified in to non-numeric Sputum Health Sputum by results) System Culture MicroscopicTe GRAM STAIN Microscopic [facility] [employer] [facility] System CellCode NEUTROPHILS Cell Code [facility] (POLYS): - Health >25/LPFEPITHEL System IAL CELLS: - >25/LPFYEAST CELLS: - MANYGRAM POSITIVE COCCI IN CHAINS: - MODERATEGRAM POSITIVE COCCI IN PAIRS AND CLUSTERS - MODERATE XXX Kylah Organism [facility] microorganism albicans Health serotype System [Identifier] in Isolate by Agglutination ColonyCount MODERATE MIXED [place] Count [facility] WITH NORMAL Health OROPHARYNGEAL System SARAH XXX PSEUDOMONAS Organism [facility] microorganism AERUGINOSA Health serotype System [Identifier] in Isolate by Agglutination ColonyCount FEW [place] Count [facility] Amikacin <=16 Sensitive - Amikacin [facility] [Susceptibili Health ty] System Aztreonam <=8 Sensitive - Aztreonam [facility] [Susceptibili Health ty] System -Cefepime <=8 Sensitive - Cefepime [facility] Ciprofloxacin <=1 Sensitive - [facility] [Susceptibili Ciprofloxacin Health ty] System Ceftazidime 4 Sensitive - Ceftazidime [facility] [Mass/volume] Health in System Unspecified specimen Gentamicin <=4 Sensitive - Gentamicin [facility] [Susceptibili Health ty] System Piperacillin <=16 Sensitive - [facility] [Susceptibili Piperacillin Health ty] System Imipenem <=4 Sensitive - Imipenem [facility] [Mass/volume] Health in System Unspecified specimen Piperacillin+ <=16 Sensitive - [facility] Tazobactam Piperacillin/T Health [Susceptibili azobactam System ty] Tobramycin <=4 Sensitive [id number] [facility] [Mass/volume] in Health in Serum or System Plasma ID Date Data Source [id number] 09/18/2019 11:42:56 PM EST [facility] Name Value Range Interpretation Code Description Data Promise rce(s) Supporting Document(s ) Anti-IgG Negative Normal (applies to Anti-IgG [facility] non-numeric Health System results) ID Date Data Source [id number] 09/18/2019 11:42:56 PM EST [facility] Name Value Range Interpretation Description Data Sup porting Code Source(s) Document(s ) Reticulocyte% 6.6 % Above high Reticulocyte [facility] normal % Health System Reticulocyte# 0.15 Above high Reticulocyte [facility] {10^6_ normal # Health uL} System ReticulocyteHemoglobin 31.7 Normal (applies Reticulocyt e [facility] pg to non-numeric Hemoglobin Health results) System ImmatureReticulocyteFr 31.4 % Above high Immature [facility] action normal Reticulocyte Health Fraction System ID Date Data Source [id number] 09/18/2019 11:42:56 PM EST [facility] Name Value Range Interpretation Description Data Sup porting Code Source(s) Document(s ) Lactate 513 Above high normal Lactate [facility] dehydrogenase {IU/L} Dehydrogenase Health [Enzymatic , Serum System activity/volume] in Serum or Plasma ID Date Data Source [id number] 09/18/2019 11:42:56 PM EST [facility] Name Value Range Interpretation Description Data Sup porting Code Source(s) Document(s ) Haptoglobin 118 Normal (applies Haptoglobin, [facility] [Mass/volume] mg/dL to non-numeric Serum Health Syst em in Serum or results) Plasma Test Performed at:[address] M[address]D. ID Date Data Source [id number] 09/18/2019 11:42:56 PM EST [facility] Name Value Range Interpretation Description Data Source(s ) Supporting Code Document(s ) Blood,Oc Negative Normal (applies to Blood, Occult [facility] cultFece non-numeric Feces Health System s results) ID Date Data Source [id number] 09/18/2019 11:42:56 PM EST [facility] Name Value Range Interpretation Description Data Sup porting Code Source(s) Document(s ) Lymphocyt Cancelled Lymphocyte %. [facility] e%. slide was Health System unable to read due damage to smear [facility] Monocyte% Cancelled Monocyte %. [facility] . [facility] System ID Date Data Source [id number] 09/18/2019 11:42:56 PM EST [facility] Name Value Range Interpretation Description Data Sup porting Code Source(s) Document(s ) Leukocytes 11.2 Above high WBC Count [facility] [#/volume] in {10^3_uL normal Health Unspecified } System specimen by Automated count Erythrocytes 3.12 Below low normal RBC Count [facility] [#/volume] in {10^6_uL Health Blood by } System Automated count Hemoglobin 10.1 Below low normal Hemoglobin [facility] [Mass/volume] in {gm/dL} Health Blood System Hematocrit 29.0 % Below low normal Hematocrit [facility] [Volume Health Fraction] of System Blood Erythrocyte mean 92.9 fl Normal (applies MCV [facility] corpuscular to non-numeric Health volume [Entitic results) System volume] by Automated count Erythrocyte mean 32.4 pg Normal (applies MCH [facility] corpuscular to non-numeric Health hemoglobin results) System [Entitic mass] by Automated count Erythrocyte mean 34.8 Normal (applies MCHC [facility] corpuscular {gm/dL} to non-numeric Health hemoglobin results) System concentration [Mass/volume] by Automated count Platelets 313 Normal (applies Platelet Count [facility] [#/volume] in {10^3_uL to non-numeric Health Plasma by } results) System Automated count Erythrocyte 15.4 % Above high RDW-CV [facility] distribution normal Health width [Entitic System volume] by Automated count Platelet mean 10.8 fl Above high MPV [facility] volume [Entitic normal Health volume] in Blood System by Automated count Eosinophils 0.24 Normal (applies Eosinophil # [facility] [#/volume] in {10^3_uL to non-numeric Health Blood } results) System Monocytes 0.7 Normal (applies Monocyte # [facility] [#/volume] in {10^3_uL to non-numeric Health Blood by Manual } results) System count Neutrophils 8.8 Above high Neutrophil # [facility] [#/volume] in {10^3_uL normal Health Body fluid } System Lymphocyte 1.3 Normal (applies Lymphocyte # [facility] percent {10^3_uL to non-numeric Health differential } results) System count (procedure) Basophils 0.04 Normal (applies Basophil # [facility] [#/volume] in {10^3_uL to non-numeric Health Blood by } results) System Automated count Neutrophils/100 78.5 % Above high Neutrophil % [facility] leukocytes in normal Health Blood by System Automated count Eosinophils/100 2.2 % Normal (applies Eosinophil % [facility] leukocytes in to non-numeric Health Unspecified results) System specimen Monocytes/100 6.2 % Normal (applies Monocyte % [facility] leukocytes in to non-numeric [facility] Blood results) System Basophils/100 0.4 % Normal (applies Basophil % [facility] leukocytes in to non-numeric Health Unspecified results) System specimen by Manual count Lymphocytes 11.4 % Below low normal Lymphocyte % [facility] [#/volume] in Health Blood by System Automated count Nucleated 0.3 Above high NRBC % [facility] erythrocytes {/100_WB normal Health [#/volume] in C} System Body fluid ImmatureGranuloc 1.3 % Above high Immature [facility] ytes% normal Granulocytes % Health System ImmatureGranuloc 0.14 Above high Immature [facility] ytes# {10^3_uL normal Granulocytes # Health } System NRBC# 0.03 Below low normal NRBC # [facility] {10^3_uL Health } System ID Date Data Source [id number] 09/18/2019 11:42:56 PM EST [facility] Name Value Range Interpretation Description Data Sup porting Code Source(s) Document(s ) Vancomycin 16.4 Below low normal Vancomycin [facility] [Mass/volume] ug/ml Level, [facility] in Serum or Plasma --peak ID Date Data Source [id number] 09/18/2019 11:42:56 PM EST [facility] Name Value Range Interpretation Description Data Sup porting Code Source(s) Document(s ) Sodium 136 Below low normal Sodium, Serum [facility] [Moles/volume] in mmol/L Health Serum or Plasma System Potassium 4.2 Normal (applies Potassium, [facility] [Mass/volume] in mmol/L to non-numeric Serum Health Serum or Plasma results) System Chloride 98 Normal (applies Chloride, [facility] [Moles/volume] in mmol/L to non-numeric Serum Health Serum or Plasma results) System TotalProtein 6.6 Normal (applies Total Protein [facility] mg/dl to non-numeric Health results) System Carbon dioxide, 29.0 Normal (applies CO2, Serum [facility] total mmol/L to non-numeric Health [Moles/volume] in results) System Serum or Plasma Glucose 87 Normal (applies Glucose, [facility] [Mass/volume] in mg/dL to non-numeric Serum [facility] Serum or Plasma results) System Creatinine 1.20 Normal (applies Creatinine, [facility] [Mass/volume] in mg/dl to non-numeric Serum Health Serum or Plasma results) System Urea nitrogen 17 Normal (applies Blood Urea [facility] [Mass/volume] in mg/dl to non-numeric Nitrogen, Health Serum or Plasma results) Serum System Alkaline 84 Normal (applies Alkaline [facility] phosphatase {IU/L} to non-numeric Phosphatase, Health isoenzymes results) Serum System [Enzymatic activity/volume] in Serum or Plasma by Heat stability DirectBilirubin 0.7 Above high Direct [facility] mg/dl normal Bilirubin Health System Bilirubin.total 1.5 Above high Bilirubin, [facility] [Mass/volume] in mg/dl normal Serum Total Health Serum or Plasma System Aspartate 39 Normal (applies Aspartate [facility] aminotransferase {IU/L} to non-numeric Transaminase, Heal th [Enzymatic results) Serum System activity/volume] in Serum or Plasma by With P-5'-P Albumin 3.0 Below low normal Albumin, [facility] [Mass/volume] in {gm/dl} Serum Health Serum or Plasma System I.Phosphorus 2.5 Normal (applies I. Phosphorus [facility] mg/dl to non-numeric Health results) System Alanine 20 Normal (applies Alanine [facility] aminotransferase {IU/L} to non-numeric Aminotransfer [facility] [Enzymatic results) ase, Serum System activity/volume] in Serum or Plasma Calcium 8.9 Normal (applies Calcium, [facility] [Mass/volume] in mg/dl to non-numeric Total Serum Health Serum or Plasma results) System Urate 4.7 Normal (applies Uric Acid, [facility] [Mass/volume] in mg/dl to non-numeric Serum Health Serum or Plasma results) System A/GRatio 0.83 Normal (applies A/G Ratio [facility] to non-numeric Health results) System Anion gap in Serum 9.00 Normal (applies Anion Gap [facility] or Plasma mmol/L to non-numeric Health results) System Glomerular 43.80 Normal (applies GFR [facility] filtration to non-numeric Health rate/1.73 sq results) System M.predicted [Volume Rate/Area] in Serum or Plasma by Creatinine-based formula (CKD-EPI) eGFR will provide clinicians with a more accurate indicator of renal function then the serum creatinine. The eGFR is automa tically calculated from an empiric formula (endorsed by the [employer] ion) which incorporates age, sex, and race.Clinicians may notice surprisingly low GFR's with serum creatinine valueswithin normal range- particularly in elderly wo men (with low muscle mass).In the hospital setting, the eGFR should add an element of safety in drug dosing, in assessing the risk of IV contrast administration, and in assessing vascular risk.The NKF staging system is as follows:Normal: eGFR >90 with no kidney markersStage 1: eGFR >90 with kidney markers*Stage 2: eGFR 60- 89Stage 3: eGFR 30-59Stage 4: eGFR 15-29Stage 5: eGFR <15 (usually requir ing dialysis)*Markers include: Proteinuria, Hematuria, abnormal imaging-studies, or other blood or urine test abnormalities ID Date Data Source [id number] 09/18/2019 11:42:56 PM EST [facility] System Name Value Range Interpretation Description Data Sup porting Code Source(s) Document(s ) Histoplasma MVISTA HISTOPLASM Normal (applies Histoplasma [facility] capsulatum QN,AG MVD to non-numeric Antigen Health Ag SPECIMEN TYPE: results) System [Units/volum Urine e] in Serum RESULT: None by Detected Immunoassay ng/mL INTERPRETATION: NegativeReferenc e Interval: None DetectedResults reported as ng/mL in 0.4 - 19.0 ng/mL rangeResults above the limit of detection but below 0.4 ng/mLare reported as "Positive, Below the Limit of Quantification"Re sults above 19.0 ng/mL are reported as "Positive, Abovethe Limit of Quantification"Th is test was developed and its performance characteristicsde termined by [employer]. It has not been clearedor approved by the FDA; however, FDA clearance or approval isnot currently requred for clinical use. The results are notintended to be used as the sole means for clinical diagnosisor patient management decisions.[id number] [place] [place] [id number] ID Date Data Source [id number] 09/18/2019 11:42:56 PM EST [facility] System Name Value Range Interpretation Description Data Sup porting Code Source(s) Document(s ) Human NONREACTIVE Normal (applies HIV test, [facility] immunodeficien Normal Range: to non-numeric Routine Health cy virus Non results) (antigen and System antibody titer ReactiveNegativ antibody measurement e for HIV-1 testing) (procedure) antigen and HIV-1/HIV-2 antibodies. No laboratory evidence of HIV infection.Test was performed at [address] ID Date Data Source [id number] 09/18/2019 11:42:56 PM EST [facility] System Name Value Range Interpretation Description Data Sup porting Code Source(s) Document(s ) Type B Normal (applies Type [facility] to non-numeric Health results) System D Ab [Titer] in Positive Normal (applies Rh [facility] Serum or Plasma to non-numeric Health results) System AntibodyScreen Negative Normal (applies Antibody [facility] to non-numeric Screen Health results) System ID Date Data Source [id number] 09/18/2019 11:42:56 PM EST [facility] Name Value Range Interpretation Description Data Sup porting Code Source(s) Document(s ) Erythrocytes 3.17 Below low normal RBC Count [facility] [#/volume] in {10^6_uL Health Blood by } System Automated count Leukocytes 11.6 Above high WBC Count [facility] [#/volume] in {10^3_uL normal Health Unspecified } System specimen by Automated count Hemoglobin 10.0 Below low normal Hemoglobin [facility] [Mass/volume] in {gm/dL} Health Blood System Hematocrit 30.8 % Below low normal Hematocrit [facility] [Volume [facility] Fraction] of System Blood Erythrocyte mean 97.2 fl Normal (applies MCV [facility] corpuscular to non-numeric Health volume [Entitic results) System volume] by Automated count Erythrocyte mean 32.5 Below low normal MCHC [facility] corpuscular {gm/dL} Health hemoglobin System concentration [Mass/volume] by Automated count Erythrocyte mean 31.5 pg Normal (applies MCH [facility] corpuscular to non-numeric Health hemoglobin results) System [Entitic mass] by Automated count Erythrocyte 15.3 % Above high RDW-CV [facility] distribution normal Health width [Entitic System volume] by Automated count Platelets 373 Normal (applies Platelet Count [facility] [#/volume] in {10^3_uL to non-numeric Health Plasma by } results) System Automated count Monocytes 0.7 Normal (applies Monocyte # [facility] [#/volume] in {10^3_uL to non-numeric Health Blood by Manual } results) System count Platelet mean 10.0 fl Normal (applies MPV [facility] volume [Entitic to non-numeric Health volume] in Blood results) System by Automated count Eosinophils 0.26 Normal (applies Eosinophil # [facility] [#/volume] in {10^3_uL to non-numeric Health Blood } results) System Neutrophils 9.8 Above high Neutrophil # [facility] [#/volume] in {10^3_uL normal Health Body fluid } System Basophils 0.04 Normal (applies Basophil # [facility] [#/volume] in {10^3_uL to non-numeric Health Blood by } results) System Automated count Lymphocyte 0.8 Below low normal Lymphocyte # [facility] percent {10^3_uL [facility] differential } System count (procedure) Neutrophils/100 84.5 % Above high Neutrophil % [facility] leukocytes in normal Health Blood by System Automated count Monocytes/100 6.1 % Normal (applies Monocyte % [facility] leukocytes in to non-numeric Health Blood results) System Basophils/100 0.3 % Normal (applies Basophil % [place] [facility] leukocytes in to non-numeric Health Unspecified results) System specimen by Manual count Eosinophils/100 2.2 % Normal (applies Eosinophil % [facility] leukocytes in to non-numeric Health Unspecified results) System specimen Lymphocytes 6.5 % Below low normal Lymphocyte % [facility] [#/volume] in [facility] Blood by System Automated count ImmatureGranuloc 0.4 % Normal (applies Immature [facility] ytes% to non-numeric Granulocytes % Health results) System Nucleated 0.0 Normal (applies NRBC % [facility] erythrocytes {/100_WB to non-numeric Health [#/volume] in C} results) System Body fluid ImmatureGranuloc 0.05 Normal (applies Immature [facility] ytes# {10^3_uL to non-numeric Granulocytes # Health } results) System NRBC# 0.00 Below low normal NRBC # [facility] {10^3_uL [facility] } System ID Date Data Source [id number] 09/18/2019 11:42:56 PM EST [facility] Name Value Range Interpretation Description Data Sup porting Code Source(s) Document(s ) Sodium 136 Below low normal Sodium, Serum [facility] [Moles/volume] in mmol/L Health Serum or Plasma System Potassium 4.1 Normal (applies Potassium, [facility] [Mass/volume] in mmol/L to non-numeric Serum Health Serum or Plasma results) System Chloride 95 Below low normal Chloride, [facility] [Moles/volume] in mmol/L Serum Health Serum or Plasma System TotalProtein 6.6 Normal (applies Total Protein [facility] mg/dl to non-numeric Health results) System Carbon dioxide, 34.0 Above high CO2, Serum [facility] total mmol/L normal Health [Moles/volume] in System Serum or Plasma Glucose 108 Above high Glucose, [facility] [Mass/volume] in mg/dL normal Serum Health Serum or Plasma System Urea nitrogen 19 Above high Blood Urea [facility] [Mass/volume] in mg/dl normal Nitrogen, Health Serum or Plasma Serum System Creatinine 1.30 Above high Creatinine, [facility] [Mass/volume] in mg/dl normal Serum Health Serum or Plasma System Alkaline 87 Normal (applies Alkaline [facility] phosphatase {IU/L} to non-numeric Phosphatase, Health isoenzymes results) Serum System [Enzymatic activity/volume] in Serum or Plasma by Heat stability Bilirubin direct 1.3 Normal (applies Bilirubin, [facility] and total panel mg/dl to non-numeric Serum Total Health [Mass/volume] - results) System Serum or Plasma DirectBilirubin 0.7 Above high Direct [facility] mg/dl normal Bilirubin Health System Aspartate 46 Above high Aspartate [facility] aminotransferase {IU/L} normal Transaminase, Health [Enzymatic Serum System activity/volume] in Serum or Plasma by With P-5'-P Albumin 2.8 Below low normal Albumin, [facility] [Mass/volume] in {gm/dl} Serum Health Serum or Plasma System I.Phosphorus 3.2 Normal (applies I. Phosphorus [facility] mg/dl to non-numeric Health results) System Alanine 23 Normal (applies Alanine [facility] aminotransferase {IU/L} to non-numeric Aminotransfer Heal th [Enzymatic results) ase, Serum System activity/volume] in Serum or Plasma Calcium 8.7 Normal (applies Calcium, [facility] [Mass/volume] in mg/dl to non-numeric Total Serum Health Serum or Plasma results) System A/GRatio 0.74 Normal (applies A/G Ratio [facility] to non-numeric Health results) System Urate 4.7 Normal (applies Uric Acid, [facility] [Mass/volume] in mg/dl to non-numeric Serum Health Serum or Plasma results) System Anion gap in Serum 7.00 Below low normal Anion Gap [facility] or Plasma mmol/L Health System Glomerular 39.93 Normal (applies GFR [facility] filtration to non-numeric Health rate/1.73 sq results) System M.predicted [Volume Rate/Area] in Serum or Plasma by Creatinine-based formula (CKD-EPI) eGFR will provide clinicians with a more accurate indicator of renal function then the serum creatinine. The eGFR is automa tically calculated from an empiric formula (endorsed by the National [employer] ion) which incorporates age, sex, and race.Clinicians may notice surprisingly low GFR's with serum creatinine valueswithin normal range- particularly in elderly wo men (with low muscle mass).In the hospital setting, the eGFR should add an element of safety in drug dosing, in assessing the risk of IV contrast administration, and in assessing vascular risk.The NKF staging system is as follows:Normal: eGFR >90 with no kidney markersStage 1: eGFR >90 with kidney markers*Stage 2: eGFR 60- 89Stage 3: eGFR 30-59Stage 4: eGFR 15-29Stage 5: eGFR <15 (usually requir ing dialysis)*Markers include: Proteinuria, Hematuria, abnormal imaging-studies, or other blood or urine test abnormalities ID Date Data Source [id number] 09/18/2019 11:42:56 PM EST [facility] System Name Value Range Interpretation Description Data Sup porting Code Source(s) Document(s ) Leukocytes 10.4 Normal (applies WBC Count [facility] [#/volume] in {10^3_uL to non-numeric Health Unspecified } results) System specimen by Automated count Erythrocytes 3.25 Below low normal RBC Count [facility] [#/volume] in {10^6_uL Health Blood by } System Automated count Hemoglobin 10.3 Below low normal Hemoglobin [facility] [Mass/volume] in {gm/dL} Health Blood System Hematocrit 31.9 % Below low normal Hematocrit [facility] [Volume Health Fraction] of System Blood Erythrocyte mean 98.2 fl Above high MCV [facility] corpuscular normal Health volume [Entitic System volume] by Automated count Erythrocyte mean 31.7 pg Normal (applies MCH [facility] corpuscular to non-numeric Health hemoglobin results) System [Entitic mass] by Automated count Erythrocyte mean 32.3 Below low normal MCHC [facility] corpuscular {gm/dL} Health hemoglobin System concentration [Mass/volume] by Automated count Erythrocyte 14.9 % Above high RDW-CV [facility] distribution normal Health width [Entitic System volume] by Automated count Platelets 367 Normal (applies Platelet Count [facility] [#/volume] in {10^3_uL to non-numeric Health Plasma by } results) System Automated count Platelet mean 10.1 fl Normal (applies MPV [facility] volume [Entitic to non-numeric Health volume] in Blood results) System by Automated count Monocytes 0.5 Normal (applies Monocyte # [facility] [#/volume] in {10^3_uL to non-numeric Health Blood by Manual } results) System count Eosinophils 0.26 Normal (applies Eosinophil # [facility] [#/volume] in {10^3_uL to non-numeric Health Blood } results) System Neutrophils 8.8 Above high Neutrophil # [facility] [#/volume] in {10^3_uL normal Health Body fluid } System Basophils 0.03 Normal (applies Basophil # [facility] [#/volume] in {10^3_uL to non-numeric Health Blood by } results) System Automated count Neutrophils/100 84.6 % Above high Neutrophil % [facility] leukocytes in normal Health Blood by System Automated count Lymphocyte 0.8 Below low normal Lymphocyte # [facility] percent {10^3_uL Health differential } System count (procedure) Monocytes/100 4.6 % Below low normal Monocyte % [facility] leukocytes in [facility] Blood System Eosinophils/100 2.5 % Normal (applies Eosinophil % [facility] leukocytes in to non-numeric Health Unspecified results) System specimen Basophils/100 0.3 % Normal (applies Basophil % [facility] leukocytes in to non-numeric Health Unspecified results) System specimen by Manual count Lymphocytes 7.3 % Below low normal Lymphocyte % [facility] [#/volume] in Health Blood by System Automated count Nucleated 0.0 Normal (applies NRBC % [facility] erythrocytes {/100_WB to non-numeric Health [#/volume] in C} results) System Body fluid ImmatureGranuloc 0.7 % Normal (applies Immature [facility] ytes% to non-numeric Granulocytes % Health results) System ImmatureGranuloc 0.07 Normal (applies Immature [facility] ytes# {10^3_uL to non-numeric Granulocytes # Health } results) System NRBC# 0.00 Below low normal NRBC # [facility] {10^3_uL [facility] } System ID Date Data Source [id number] 09/18/2019 11:42:56 PM EST [facility] Name Value Range Interpretation Description Data Sup porting Code Source(s) Document(s ) Sodium 138 Normal (applies Sodium, Serum [facility] [Moles/volume] in mmol/L to non-numeric Health Serum or Plasma results) System Potassium 4.1 Normal (applies Potassium, [facility] [Mass/volume] in mmol/L to non-numeric Serum Health Serum or Plasma results) System Chloride 93 Below low normal Chloride, [facility] [Moles/volume] in mmol/L Serum Health Serum or Plasma System TotalProtein 7.0 Normal (applies Total Protein [facility] mg/dl to non-numeric Health results) System Carbon dioxide, 36.0 Above high CO2, Serum [facility] total mmol/L normal Health [Moles/volume] in System Serum or Plasma Glucose 88 Normal (applies Glucose, [facility] [Mass/volume] in mg/dL to non-numeric Serum Health Serum or Plasma results) System Urea nitrogen 19 Above high Blood Urea [facility] [Mass/volume] in mg/dl normal Nitrogen, Health Serum or Plasma Serum System Creatinine 1.30 Above high Creatinine, [facility] [Mass/volume] in mg/dl normal Serum Health Serum or Plasma System Alkaline 90 Normal (applies Alkaline [facility] phosphatase {IU/L} to non-numeric Phosphatase, Health isoenzymes results) Serum System [Enzymatic activity/volume] in Serum or Plasma by Heat stability Bilirubin.total 1.4 Above high Bilirubin, [facility] [Mass/volume] in mg/dl normal Serum Total Health Serum or Plasma System DirectBilirubin 0.7 Above high Direct [facility] mg/dl normal Bilirubin Health System Aspartate 51 Above high Aspartate [facility] aminotransferase {IU/L} normal Transaminase, Health [Enzymatic Serum System activity/volume] in Serum or Plasma by With P-5'-P Albumin 2.9 Below low normal Albumin, [facility] [Mass/volume] in {gm/dl} Serum Health Serum or Plasma System I.Phosphorus 3.3 Normal (applies I. Phosphorus [facility] mg/dl to non-numeric Health results) System Alanine 29 Normal (applies Alanine [facility] aminotransferase {IU/L} to non-numeric Aminotransfer Heal th [Enzymatic results) ase, Serum System activity/volume] in Serum or Plasma Calcium 9.0 Normal (applies Calcium, [facility] [Mass/volume] in mg/dl to non-numeric Total Serum Health Serum or Plasma results) System A/GRatio 0.71 Normal (applies A/G Ratio [facility] to non-numeric Health results) System Urate 5.1 Normal (applies Uric Acid, [facility] [Mass/volume] in mg/dl to non-numeric Serum Health Serum or Plasma results) System Anion gap in Serum 9.00 Normal (applies Anion Gap [facility] or Plasma mmol/L to non-numeric Health results) System Glomerular 39.93 Normal (applies GFR [facility] filtration to non-numeric Health rate/1.73 sq results) System M.predicted [Volume Rate/Area] in Serum or Plasma by Creatinine-based formula (CKD-EPI) eGFR will provide clinicians with a more accurate indicator of renal function then the serum creatinine. The eGFR is automa tically calculated from an empiric formula (endorsed by the National Kid[employer] ion) which incorporates age, sex, and race.Clinicians may notice surprisingly low GFR's with serum creatinine valueswithin normal range- particularly in elderly wo men (with low muscle mass).In the hospital setting, the eGFR should add an element of safety in drug dosing, in assessing the risk of IV contrast administration, and in assessing vascular risk.The NKF staging system is as follows:Normal: eGFR >90 with no kidney markersStage 1: eGFR >90 with kidney markers*Stage 2: eGFR 60- 89Stage 3: eGFR 30-59Stage 4: eGFR 15-29Stage 5: eGFR <15 (usually requir ing dialysis)*Markers include: Proteinuria, Hematuria, abnormal imaging-studies, or other blood or urine test abnormalities ID Date Data Source [id number] 09/18/2019 11:42:56 PM EST [facility] System Name Value Range Interpretation Description Data Sup porting Code Source(s) Document(s ) Leukocytes 9.8 Normal (applies WBC Count [facility] [#/volume] in {10^3_uL to non-numeric Health Unspecified } results) System specimen by Automated count Erythrocytes 3.43 Below low normal RBC Count [facility] [#/volume] in {10^6_uL Health Blood by } System Automated count Hemoglobin 11.0 Below low normal Hemoglobin [facility] [Mass/volume] in {gm/dL} Health Blood System Hematocrit 33.4 % Below low normal Hematocrit [facility] [Volume Health Fraction] of System Blood Erythrocyte mean 97.4 fl Normal (applies MCV [facility] corpuscular to non-numeric Health volume [Entitic results) System volume] by Automated count Erythrocyte mean 32.1 pg Normal (applies MCH [facility] corpuscular to non-numeric Health hemoglobin results) System [Entitic mass] by Automated count Erythrocyte mean 32.9 Below low normal [facility] corpuscular {gm/dL} Health hemoglobin System concentration [Mass/volume] by Automated count Erythrocyte 14.6 % Above high RDW-CV [facility] distribution normal Health width [Entitic System volume] by Automated count Platelets 374 Normal (applies Platelet Count [facility] [#/volume] in {10^3_uL to non-numeric Health Plasma by } results) System Automated count Platelet mean 10.0 fl Normal (applies MPV [facility] volume [Entitic to non-numeric Health volume] in Blood results) System by Automated count Monocytes 0.5 Normal (applies Monocyte # [facility] [#/volume] in {10^3_uL to non-numeric Health Blood by Manual } results) System count Eosinophils 0.21 Normal (applies Eosinophil # [facility] [#/volume] in {10^3_uL to non-numeric Health Blood } results) System Neutrophils 8.2 Above high Neutrophil # [facility] [#/volume] in {10^3_uL normal Health Body fluid } System Basophils 0.03 Normal (applies Basophil # [facility] [#/volume] in {10^3_uL to non-numeric Health Blood by } results) System Automated count Lymphocyte 0.9 Below low normal Lymphocyte # [facility] percent {10^3_uL Health differential } System count (procedure) Neutrophils/100 83.4 % Above high Neutrophil % [facility] leukocytes in normal Health Blood by System Automated count Monocytes/100 5.0 % Below low normal Monocyte % [facility] leukocytes in [facility] Blood System Eosinophils/100 2.1 % Normal (applies Eosinophil % [facility] leukocytes in to non-numeric Health Unspecified results) System specimen Basophils/100 0.3 % Normal (applies Basophil % [facility] leukocytes in to non-numeric Health Unspecified results) System specimen by Manual count Lymphocytes 8.6 % Below low normal Lymphocyte % [facility] [#/volume] in Health Blood by System Automated count ImmatureGranuloc 0.6 % Normal (applies Immature [facility] ytes% to non-numeric Granulocytes % Health results) System Nucleated 0.0 Normal (applies NRBC % [facility] erythrocytes {/100_WB to non-numeric Health [#/volume] in C} results) System Body fluid ImmatureGranuloc 0.06 Normal (applies Immature [facility] ytes# {10^3_uL to non-numeric Granulocytes # Health } results) System NRBC# 0.00 Below low normal NRBC # [facility] {10^3_uL Health } System ID Date Data Source [id number] 09/18/2019 11:42:56 PM EST [facility] Name Value Range Interpretation Description Data Sup porting Code Source(s) Document(s ) Sodium 137 Normal (applies Sodium, Serum [facility] [Moles/volume] in mmol/L to non-numeric Health Serum or Plasma results) System Potassium 3.4 Below low normal Potassium, [facility] [Mass/volume] in mmol/L Serum Health Serum or Plasma System Chloride 92 Below low normal Chloride, [facility] [Moles/volume] in mmol/L Serum Health Serum or Plasma System Carbon dioxide, 34.0 Above high CO2, Serum [facility] total mmol/L normal Health [Moles/volume] in System Serum or Plasma TotalProtein 7.6 Normal (applies Total Protein [facility] mg/dl to non-numeric Health results) System Glucose 85 Normal (applies Glucose, [facility] [Mass/volume] in mg/dL to non-numeric Serum Health Serum or Plasma results) System Urea nitrogen 19 Above high Blood Urea [facility] [Mass/volume] in mg/dl normal Nitrogen, Health Serum or Plasma Serum System Creatinine 1.40 Above high Creatinine, [facility] [Mass/volume] in mg/dl normal Serum Health Serum or Plasma System Alkaline 101 Normal (applies Alkaline [facility] phosphatase {IU/L} to non-numeric Phosphatase, Health isoenzymes results) Serum System [Enzymatic activity/volume] in Serum or Plasma by Heat stability Bilirubin.total 1.5 Above high Bilirubin, [facility] [Mass/volume] in mg/dl normal Serum Total Health Serum or Plasma System DirectBilirubin 0.7 Above high Direct [facility] mg/dl normal Bilirubin Health System Aspartate 56 Above high Aspartate [facility] aminotransferase {IU/L} normal Transaminase, Health [Enzymatic Serum System activity/volume] in Serum or Plasma by With P-5'-P Albumin 3.2 Below low normal Albumin, [facility] [Mass/volume] in {gm/dl} Serum Health Serum or Plasma System I.Phosphorus 2.9 Normal (applies I. Phosphorus [facility] mg/dl to non-numeric Health results) System Alanine 36 Normal (applies Alanine [facility] aminotransferase {IU/L} to non-numeric Aminotransfer Heal th [Enzymatic results) ase, Serum System activity/volume] in Serum or Plasma Calcium 9.4 Normal (applies Calcium, [facility] [Mass/volume] in mg/dl to non-numeric Total Serum Health Serum or Plasma results) System A/GRatio 0.73 Normal (applies A/G Ratio [facility] to non-numeric Health results) System Urate 5.1 Normal (applies Uric Acid, [facility] [Mass/volume] in mg/dl to non-numeric Serum Health Serum or Plasma results) System Anion gap in Serum 11.00 Normal (applies Anion Gap [facility] surjit or Plasma mmol/L to non-numeric Health results) System Glomerular 36.66 Normal (applies GFR [facility] filtration to non-numeric Health rate/1.73 sq results) System M.predicted [Volume Rate/Area] in Serum or Plasma by Creatinine-based formula (CKD-EPI) eGFR will provide clinicians with a more accurate indicator of renal function then the serum creatinine. The eGFR is automa tically calculated from an empiric formula (endorsed by the National Kid[employer] ion) which incorporates age, sex, and race.Clinicians may notice surprisingly low GFR's with serum creatinine valueswithin normal range- particularly in elderly wo men (with low muscle mass).In the hospital setting, the eGFR should add an element of safety in drug dosing, in assessing the risk of IV contrast administration, and in assessing vascular risk.The NKF staging system is as follows:Normal: eGFR >90 with no kidney markersStage 1: eGFR >90 with kidney markers*Stage 2: eGFR 60- 89Stage 3: eGFR 30-59Stage 4: eGFR 15-29Stage 5: eGFR <15 (usually requir ing dialysis)*Markers include: Proteinuria, Hematuria, abnormal imaging-studies, or other blood or urine test abnormalities ID Date Data Source [id number] 09/18/2019 11:42:56 PM EST [facility] Name Value Range Interpretation Description Data Sup porting Code Source(s) Document(s ) Leukocytes 10.2 Normal (applies WBC Count [facility] [#/volume] in {10^3_uL to non-numeric Health Unspecified } results) System specimen by Automated count Erythrocytes 3.26 Below low normal RBC Count [facility] [#/volume] in {10^6_uL Health Blood by } System Automated count Hemoglobin 10.4 Below low normal Hemoglobin [facility] [Mass/volume] in {gm/dL} Health Blood System Hematocrit 32.5 % Below low normal Hematocrit [facility] [Volume Health Fraction] of System Blood Erythrocyte mean 99.7 fl Above high MCV [facility] corpuscular normal Health volume [Entitic System volume] by Automated count Erythrocyte mean 31.9 pg Normal (applies MCH [facility] corpuscular to non-numeric Health hemoglobin results) System [Entitic mass] by Automated count Erythrocyte mean 32.0 Below low normal MCHC [facility] corpuscular {gm/dL} Health hemoglobin System concentration [Mass/volume] by Automated count Erythrocyte 14.6 % Above high RDW-CV [facility] distribution normal Health width [Entitic System volume] by Automated count Platelets 375 Normal (applies Platelet Count [facility] [#/volume] in {10^3_uL to non-numeric Health Plasma by } results) System Automated count Platelet mean 10.4 fl Normal (applies MPV [facility] volume [Entitic to non-numeric Health volume] in Blood results) System by Automated count Monocytes 0.5 Normal (applies Monocyte # [facility] [#/volume] in {10^3_uL to non-numeric Health Blood by Manual } results) System count Eosinophils 0.15 Normal (applies Eosinophil # [facility] [#/volume] in {10^3_uL to non-numeric Health Blood } results) System Neutrophils 8.6 Above high Neutrophil # [facility] [#/volume] in {10^3_uL normal Health Body fluid } System Basophils 0.03 Normal (applies Basophil # [facility] [#/volume] in {10^3_uL to non-numeric Health Blood by } results) System Automated count Lymphocyte 0.8 Below low normal Lymphocyte # [facility] percent {10^3_uL Health differential } System count (procedure) Neutrophils/100 84.2 % Above high Neutrophil % [facility] leukocytes in normal Health Blood by System Automated count Monocytes/100 5.3 % Below low normal Monocyte % [facility] leukocytes in Health Blood System Eosinophils/100 1.5 % Normal (applies Eosinophil % [facility] surjit leukocytes in to non-numeric Health Unspecified results) System specimen Basophils/100 0.3 % Normal (applies Basophil % [facility] leukocytes in to non-numeric Health Unspecified results) System specimen by Manual count Lymphocytes 8.0 % Below low normal Lymphocyte % [facility] [#/volume] in Health Blood by System Automated count ImmatureGranuloc 0.7 % Normal (applies Immature [facility] ytes% to non-numeric Granulocytes % Health results) System Nucleated 0.0 Normal (applies NRBC % [facility] erythrocytes {/100_WB to non-numeric Health [#/volume] in C} results) System Body fluid ImmatureGranuloc 0.07 Normal (applies Immature [facility] ytes# {10^3_uL to non-numeric Granulocytes # Health } results) System NRBC# 0.00 Below low normal NRBC # [facility] {10^3_uL Health } System ID Date Data Source [id number] 09/18/2019 11:42:56 PM EST [facility] Name Value Range Interpretation Description Data Sup porting Code Source(s) Document(s ) Sodium 138 Normal (applies Sodium, Serum [facility] [Moles/volume] in mmol/L to non-numeric Health Serum or Plasma results) System Potassium 3.7 Normal (applies Potassium, [facility] [Mass/volume] in mmol/L to non-numeric Serum Health Serum or Plasma results) System Chloride 95 Below low normal Chloride, [facility] [Moles/volume] in mmol/L Serum Health Serum or Plasma System Carbon dioxide, 33.0 Above high CO2, Serum [facility] total mmol/L normal Health [Moles/volume] in System Serum or Plasma TotalProtein 7.6 Normal (applies Total Protein [facility] mg/dl to non-numeric Health results) System Glucose 84 Normal (applies Glucose, [facility] [Mass/volume] in mg/dL to non-numeric Serum Health Serum or Plasma results) System Urea nitrogen 26 Above high Blood Urea [facility] [Mass/volume] in mg/dl normal Nitrogen, Health Serum or Plasma Serum System Creatinine 1.60 Above high Creatinine, [facility] [Mass/volume] in mg/dl normal Serum Health Serum or Plasma System Alkaline 108 Normal (applies Alkaline [facility] phosphatase {IU/L} to non-numeric Phosphatase, Health isoenzymes results) Serum System [Enzymatic activity/volume] in Serum or Plasma by Heat stability Bilirubin direct 1.1 Normal (applies Bilirubin, [facility] and total panel mg/dl to non-numeric Serum Total Health [Mass/volume] - results) System Serum or Plasma DirectBilirubin 0.6 Above high Direct [facility] mg/dl normal Bilirubin Health System Aspartate 47 Above high Aspartate [facility] aminotransferase {IU/L} normal Transaminase, Health [Enzymatic Serum System activity/volume] in Serum or Plasma by With P-5'-P Albumin 3.3 Below low normal Albumin, [facility] [Mass/volume] in {gm/dl} Serum Health Serum or Plasma System I.Phosphorus 2.8 Normal (applies I. Phosphorus [facility] mg/dl to non-numeric Health results) System Alanine 32 Normal (applies Alanine [facility] aminotransferase {IU/L} to non-numeric Aminotransfer Heal th [Enzymatic results) ase, Serum System activity/volume] in Serum or Plasma Calcium 9.2 Normal (applies Calcium, [facility] [Mass/volume] in mg/dl to non-numeric Total Serum Health Serum or Plasma results) System A/GRatio 0.77 Normal (applies A/G Ratio [facility] to non-numeric Health results) System Urate 5.7 Normal (applies Uric Acid, [facility] [Mass/volume] in mg/dl to non-numeric Serum Health Serum or Plasma results) System Anion gap in Serum 10.00 Normal (applies Anion Gap [facility] surjit or Plasma mmol/L to non-numeric Health results) System Glomerular 31.42 Normal (applies GFR [facility] filtration to non-numeric Health rate/1.73 sq results) System M.predicted [Volume Rate/Area] in Serum or Plasma by Creatinine-based formula (CKD-EPI) eGFR will provide clinicians with a more accurate indicator of renal function then the serum creatinine. The eGFR is automa tically calculated from an empiric formula (endorsed by the National Kid[employer] ion) which incorporates age, sex, and race.Clinicians may notice surprisingly low GFR's with serum creatinine valueswithin normal range- particularly in elderly wo men (with low muscle mass).In the hospital setting, the eGFR should add an element of safety in drug dosing, in assessing the risk of IV contrast administration, and in assessing vascular risk.The NKF staging system is as follows:Normal: eGFR >90 with no kidney markersStage 1: eGFR >90 with kidney markers*Stage 2: eGFR 60- 89Stage 3: eGFR 30-59Stage 4: eGFR 15-29Stage 5: eGFR <15 (usually requir ing dialysis)*Markers include: Proteinuria, Hematuria, abnormal imaging-studies, or other blood or urine test abnormalities ID Date Data Source [id number] 09/18/2019 11:42:56 PM EST [facility] System Name Value Range Interpretation Description Data Source(s ) Supporting Code Document(s ) PH* 7.438 Above high normal PH* [facility] {pH_units} [facility] PCO2* 60.8 Above high normal PCO2* [facility] {mm_Hg} [facility] System BaseExces 16.90 Above high normal Base Excess* [facility] e s* {mEq/L} [facility] HCO3* 41.1 Above high normal HCO3* [facility] mmol/L [facility] System Chloride, 94 mmol/L Below low normal Chloride, VB [facility] System Lactate. 1.8 mmol/L Normal (applies to Lactate. [facility] non-numeric [facility] System results) Glucose,V 49 mg/dL Below lower panic Glucose, [facility] B [facility] System notified Jane Hernandez Reporting|Telep macho|jane Castañeda| 12/08/2018 at 7:51 PMCalled to:jane Martinez Name:Yajaira by:jane Castañeda 12/08/2018 / 7:50 PMResult Reporting|Telephone|Jane Morales| 12/08/2018 at 8:08 PMCalled to:Jane Berrios Name:Yajaira by:Jane Morales 12/08/2018 / 8:08 PM Potassium,VB 2.4 mmol/L Below lower panic Potassium, VB [facility] Result Reporting|Telephone|jane Castañeda| at 7:51 PMCalled to:jane Martinez Name:Yajaira by:jane Castañeda 12/08/2018 / 7:50 PM Sodium,VB 148 mmol/L Above high Sodium, [facility] normal System IonizedCalcium,VB 1.36 mmol/L Above high [facility]ized [facility], [facility] L2Htpewjphnp* 36.20 % Normal (applies O2 Saturation* [facility] surjit Health to non-numeric System results) ID Date Data Source [id number] 09/18/2019 11:42:56 PM EST [facility] Name Value Range Interpretation Description Data Sup porting Code Source(s) Document(s ) Type B Normal (applies Type [facility] to non-numeric Health results) System D Ab [Titer] in Positive Normal (applies Rh [facility] Serum or Plasma to non-numeric Health results) System AntibodyScreen Negative Normal (applies Antibody [facility] to non-numeric Screen Health results) System ID Date Data Source [id number] 09/18/2019 11:42:56 PM EST [facility] Name Value Range Interpretation Description Data Source(s ) Supporting Code Document(s ) B-TypeNa 138.0 Above high normal B-Type [facility] triuetic pg/mL [facility] Peptide- Peptide - MV MVOnly Only ID Date Data Source [id number] 09/18/2019 11:42:56 PM EST [facility] Name Value Range Interpretation Description Data Sup porting Code Source(s) Document(s ) Leukocytes 15.6 Above high WBC Count [facility] [#/volume] in {10^3_uL normal Health Unspecified } System specimen by Automated count Erythrocytes 3.98 Normal (applies RBC Count [facility] [#/volume] in {10^6_uL to non-numeric Health Blood by } results) System Automated count Hemoglobin 13.1 Normal (applies Hemoglobin [facility] [Mass/volume] in {gm/dL} to non-numeric Health Blood results) System Hematocrit 40.8 % Normal (applies Hematocrit [facility] [Volume to non-numeric Health Fraction] of results) System Blood Erythrocyte mean 102.5 fl Above high MCV [facility] corpuscular normal Health volume [Entitic System volume] by Automated count Erythrocyte mean 32.9 pg Normal (applies MCH [facility] corpuscular to non-numeric Health hemoglobin results) System [Entitic mass] by Automated count Erythrocyte mean 32.1 Below low normal MCHC [facility] corpuscular {gm/dL} Health hemoglobin System concentration [Mass/volume] by Automated count Erythrocyte 15.0 % Above high RDW-CV [facility] distribution normal Health width [Entitic System volume] by Automated count Platelets 268 Normal (applies Platelet Count [facility] [#/volume] in {10^3_uL to non-numeric Health Plasma by } results) System Automated count Platelet mean 10.9 fl Above high MPV [facility] volume [Entitic normal Health volume] in Blood System by Automated count Monocytes 0.6 Normal (applies Monocyte # [facility] [#/volume] in {10^3_uL to non-numeric Health Blood by Manual } results) System count Eosinophils 0.00 Below low normal Eosinophil # [facility] [#/volume] in {10^3_uL Health Blood } System Neutrophils 13.2 Above high Neutrophil # [facility] [#/volume] in {10^3_uL normal Health Body fluid } System Basophils 0.01 Normal (applies Basophil # [facility] [#/volume] in {10^3_uL to non-numeric Health Blood by } results) System Automated count Lymphocyte 1.8 Normal (applies Lymphocyte # [facility] percent {10^3_uL to non-numeric Health differential } results) System count (procedure) Neutrophils/100 84.1 % Above high Neutrophil % [facility] leukocytes in normal Health Blood by System Automated count Monocytes/100 3.6 % Below low normal Monocyte % [facility] leukocytes in Health Blood System Eosinophils/100 0.0 % Normal (applies Eosinophil % [facility] surjit leukocytes in to non-numeric Health Unspecified results) System specimen Basophils/100 0.1 % Normal (applies Basophil % [facility] leukocytes in to non-numeric Health Unspecified results) System specimen by Manual count Lymphocytes 11.2 % Below low normal Lymphocyte % [facility] [#/volume] in Health Blood by System Automated count ImmatureGranuloc 1.0 % Above high Immature [facility] ytes% normal Granulocytes % Health System Nucleated 0.0 Normal (applies NRBC % [facility] erythrocytes {/100_WB to non-numeric Health [#/volume] in C} results) System Body fluid ImmatureGranuloc 0.16 Above high Immature [facility] ytes# {10^3_uL normal Granulocytes # Health } System NRBC# 0.00 Below low normal NRBC # [facility] {10^3_uL Health } System ID Date Data Source [id number] 09/18/2019 11:42:56 PM EST [facility] Name Value Range Interpretation Description Data Sup porting Code Source(s) Document(s ) Thyrotropin 0.554 Normal (applies Thyroid [facility] [Mass/volume] {mIU/mL} to non-numeric Stimulating Health Sy stem in Serum or results) Hormone, Serum Plasma ID Date Data Source [id number] 09/18/2019 11:42:56 PM EST [facility] Name Value Range Interpretation Description Data Sup porting Code Source(s) Document(s ) Creatine 46 {IU/L} Normal (applies Creatine [facility] kinase.MB to non-numeric Kinase, Serum Health Syst em [Mass/volume results) ] in Serum or Plasma ID Date Data Source [id number] 09/18/2019 11:42:56 PM EST [facility] Name Value Range Interpretation Description Data Source(s ) Supporting Code Document(s ) Lipase 208 U/L Above high normal Lipase, Serum [facility] [Enzymatic Health System activity/v olume] in Serum or Plasma ID Date Data Source [id number] 09/18/2019 11:42:56 PM EST [facility] Name Value Range Interpretation Description Data Sup porting Code Source(s) Document(s ) Sodium 147 Above high normal Sodium, Serum [facility] [Moles/volume mmol/L Health System ] in Serum or Plasma Potassium 2.4 Below lower panic Potassium, [facility] [Mass/volume] mmol/L limits Serum Health System in Serum or Plasma Result Reporting|Telephone|JANE rivas| 12/08/2018 at 8:14 PMCalled to:JANE Ramos Name:Yajaira by:JANE osman 12/08/2018 / 8:14 PM Chloride 96 mmol/L Below low Chloride, Serum [facility] [Moles/volume] in normal System Serum or Plasma Carbon dioxide, total 33.0 mmol/L Above high CO2, Serum [facility] [Moles/volume] in normal System Serum or Plasma TotalProtein 7.3 mg/dl Normal Total Protein [facility] (applies to System non-numeric results) Glucose [Mass/volume] 45 mg/dL Below lower Glucose, Serum [facility] in Serum or Plasma panic limits System Result Reporting|Telephone|JANE rivas| 12/08/2018 at 8:14 PMCalled to:JANE Ramos Name:Yajaira by:JANE osman 12/08/2018 / 8:14 PM Urea nitrogen 117 mg/dl Above high Blood Urea [facility] [Mass/volume] in Serum normal Nitrogen, Serum H ealth System or Plasma Creatinine 1.20 mg/dl Normal Creatinine, Serum [facility] [Mass/volume] in Serum (applies to Healt h System or Plasma non-numeric results) Alkaline phosphatase 95 {IU/L} Normal Alkaline [facility] isoenzymes [Enzymatic (applies to Phosphatase, a [facility] System activity/volume] in non-numeric Serum Serum or Plasma by Heat results) stability Bilirubin direct and 0.7 mg/dl Normal Bilirubin, Serum [facility] total panel (applies to Total Health System [Mass/volume] - Serum non-numeric or Plasma results) DirectBilirubin 0.3 mg/dl Normal Direct Bilirubin [facility] (applies to Health System non-numeric results) Aspartate 24 {IU/L} Normal Aspartate [facility] aminotransferase (applies to Transaminase, Health System [Enzymatic non-numeric Serum activity/volume] in results) Serum or Plasma by With P-5'-P Albumin [Mass/volume] 3.3 {gm/dl} Below low Albumin, Serum [facility] in Serum or Plasma normal Health Syst em I.Phosphorus 3.0 mg/dl Normal I. Phosphorus [facility] (applies to Health System non-numeric results) Alanine 41 {IU/L} Normal Alanine [facility] aminotransferase (applies to Aminotransferase, [facility] System [Enzymatic non-numeric Serum activity/volume] in results) Serum or Plasma Calcium [Mass/volume] 11.1 mg/dl Above high Calcium, Total M [facility] in Serum or Plasma normal Serum Health Syst em A/GRatio 0.83 Normal A/G Ratio [facility] (applies to Health System non-numeric results) Urate [Mass/volume] in 11.6 mg/dl Above high Uric Acid, Seru m [facility] Serum or Plasma normal Health System Anion gap in Serum or 18.00 mmol/L Above high Anion Gap [facility] Plasma normal Health System Glomerular filtration 43.74 Normal GFR [facility] rate/1.73 sq (applies to Health System M.predicted [Volume non-numeric Rate/Area] in Serum or results) Plasma by Creatinine-based formula (CKD-EPI) eGFR will provide clinicians with a more accurate indicator of renal function then the serum creatinine. The eGFR is automa tically calculated from an empiric formula (endorsed by the National Kid[employer] ion) which incorporates age, sex, and race.Clinicians may notice surprisingly low GFR's with serum creatinine valueswithin normal range- particularly in elderly wo men (with low muscle mass).In the hospital setting, the eGFR should add an element of safety in drug dosing, in assessing the risk of IV contrast administration, and in assessing vascular risk.The NKF staging system is as follows:Normal: eGFR >90 with no kidney markersStage 1: eGFR >90 with kidney markers*Stage 2: eGFR 60- 89Stage 3: eGFR 30-59Stage 4: eGFR 15-29Stage 5: eGFR <15 (usually requir ing dialysis)*Markers include: Proteinuria, Hematuria, abnormal imaging-studies, or other blood or urine test abnormalities ID Date Data Source [id number] 09/18/2019 11:42:56 PM EST [facility] System Name Value Range Interpretation Description Data Source(s ) Supporting Code Document(s ) Troponin 0.46 Above high normal Troponin I [facility] IQuantit ng/mL [facility] ative-MV MV Only Only The Troponin I result is consistent with Severe Cardiac Ischemia. ID Date Data Source [id number] 09/18/2019 11:42:56 PM EST [facility] System Name Value Range Interpretation Description Data Sup porting Code Source(s) Document(s ) Prothrombintim 10.70 Normal (applies Prothrombin [facility](PT) {seconds to non-numeric time (PT) Health System } results) INR in Blood 1.02 Normal (applies INR Result [facility] by Coagulation {Ratio} to non-numeric Health Sys tem assay results) Normal = 0.7-1.1Therapeutic = 2.0-3.0Mec hanical Heart = 3.0-4.5 ID Date Data Source [id number] 09/18/2019 11:42:56 PM EST [facility] Name Value Range Interpretation Description Data Sup porting Code Source(s) Document(s ) Color YELLOW Normal (applies Color [facility] to non-numeric Health results) System Appearance of CLEAR Normal (applies Urine [facility] Urine to non-numeric Appearance Health results) System Specific gravity 1.010 Normal (applies Urine Specific [facility] of Urine to non-numeric [facility] results) System pH.. 6.0 Normal (applies pH.. [facility] {pH_units} to non-numeric Health results) System Glucose,UA NEGATIVE Normal (applies Glucose, UA [facility] to non-numeric Health results) System Protein 30 mg/dl Normal (applies Protein [facility] [Mass/volume] in to non-numeric Health Serum or Plasma results) System BilirubinUrine NEGATIVE Normal (applies Bilirubin [facility] to non-numeric Urine Health results) System Urobilinogen 0.2 mg/dL Normal (applies Urobilinogen [facility] [Mass/volume] in to non-numeric UA Health Urine results) System Ketones NEGATIVE Normal (applies Ketones UA [facility] [Mass/volume] in to non-numeric Health Urine results) System Nitrate+Nitrite NEGATIVE Normal (applies Nitrite [facility] [Mass/volume] in to non-numeric Health Unspecified results) System specimen Leukocyte NEGATIVE Normal (applies Leukocyte [facility] esterase to non-numeric Esterase Health [Units/volume] results) Concentration System in Urine UrineBlood NEGATIVE Normal (applies Urine Blood [facility] to non-numeric Health results) System ID Date Data Source [id number] 09/18/2019 11:42:56 PM EST [facility] Name Value Range Interpretation Description Data Sup porting Code Source(s) Document(s ) Magnesium 2.5 Above high normal Magnesium, [facility] [Mass/volume] {mEq/L} Serum [facility] in Serum or Plasma ID Date Data Source [id number] 09/18/2019 11:42:56 PM EST [facility] Name Value Range Interpretation Description Data Source(s ) Supporting Code Document(s ) Troponin 0.72 Above high normal Troponin I [facility] IQuantit ng/mL Quantitative - Health System ative-MV MV Only Only The Troponin I result is consistent with Severe Cardiac Ischemia. ID Date Data Source [id number] 09/18/2019 11:42:56 PM EST [facility] Name Value Range Interpretation Description Data Sup porting Code Source(s) Document(s ) Leukocytes 19.0 Above high WBC Count [facility] [#/volume] in {10^3_uL normal Health Unspecified } System specimen by Automated count Erythrocytes 3.47 Below low normal RBC Count [facility] [#/volume] in {10^6_uL Health Blood by } System Automated count Hemoglobin 11.4 Below low normal Hemoglobin [facility] [Mass/volume] in {gm/dL} Health Blood System Hematocrit 35.7 % Below low normal Hematocrit [facility] [Volume Health Fraction] of System Blood Erythrocyte mean 102.9 fl Above high MCV [facility] corpuscular normal Health volume [Entitic System volume] by Automated count Erythrocyte mean 32.9 pg Normal (applies MCH [facility] corpuscular to non-numeric Health hemoglobin results) System [Entitic mass] by Automated count Erythrocyte mean 31.9 Below low normal MCHC [facility] corpuscular {gm/dL} Health hemoglobin System concentration [Mass/volume] by Automated count Erythrocyte 15.3 % Above high RDW-CV [facility] distribution normal Health width [Entitic System volume] by Automated count Platelets 224 Normal (applies Platelet Count [facility] [#/volume] in {10^3_uL to non-numeric Health Plasma by } results) System Automated count Platelet mean 10.8 fl Above high MPV [facility] volume [Entitic normal Health volume] in Blood System by Automated count Monocytes 0.3 Normal (applies Monocyte # [facility] [#/volume] in {10^3_uL to non-numeric Health Blood by Manual } results) System count Eosinophils 0.00 Below low normal Eosinophil # [facility] [#/volume] in {10^3_uL Health Blood } System Neutrophils 17.8 Above high Neutrophil # [facility] [#/volume] in {10^3_uL normal Health Body fluid } System Basophils 0.03 Normal (applies Basophil # [facility] [#/volume] in {10^3_uL to non-numeric Health Blood by } results) System Automated count Lymphocyte 0.7 Below low normal Lymphocyte # [facility] percent {10^3_uL Health differential } System count (procedure) Neutrophils/100 93.9 % Above high Neutrophil % [facility] leukocytes in normal Health Blood by System Automated count Monocytes/100 1.6 % Below low normal Monocyte % [facility] leukocytes in Health Blood System Eosinophils/100 0.0 % Normal (applies Eosinophil % [facility]it leukocytes in to non-numeric Health Unspecified results) System specimen Basophils/100 0.2 % Normal (applies Basophil % [facility] leukocytes in to non-numeric Health Unspecified results) System specimen by Manual count Lymphocytes 3.6 % Below low normal Lymphocyte % [facility] [#/volume] in Health Blood by System Automated count ImmatureGranuloc 0.7 % Normal (applies Immature [facility] ytes% to non-numeric Granulocytes % Health results) System Nucleated 0.0 Normal (applies NRBC % [facility] erythrocytes {/100_WB to non-numeric Health [#/volume] in C} results) System Body fluid ImmatureGranuloc 0.14 Above high Immature [facility] ytes# {10^3_uL normal Granulocytes # Health } System NRBC# 0.00 Below low normal NRBC # [facility] {10^3_uL Health } System ID Date Data Source [id number] 09/18/2019 11:42:56 PM EST [facility] Name Value Range Interpretation Description Data Sup porting Code Source(s) Document(s ) Creatine 42 {IU/L} Normal (applies Creatine [facility] kinase.MB to non-numeric Kinase, Serum [facility] [Mass/volume results) ] in Serum or Plasma ID Date Data Source [id number] 09/18/2019 11:42:56 PM EST [facility] Name Value Range Interpretation Description Data Sup porting Code Source(s) Document(s ) Procalci 0.20 Above high normal Procalcitonin [facility] tonin(PC ng/mL (PCT), Serum - [facility] Syste m T),Serum Only -MVOnly SUSPECTED LOWER RESPIRATORY TRACT INFECT ION0.020-0.25 ng/mL: low likelihood of bacterial infection: Antibiotics discour aged>0.25 ng/mL: Increased likelihood of bacterial infection: Antibiotics encoura gedSUSPECTED SEPSIS: Strongly consider initiating antibiotics in all unstable p atients0.020-0.5 ng/mL: Low likelihood of sepsis: Antibiotics discouraged.>0.5 ng/ mL: Increased likelihood of sepsis: Antibiotics encouraged>2.0 ng/mL: high r isk of sepsis/septic shock: Antibiotics strongly encouraged ID Date Data Source [id number] 09/18/2019 11:42:56 PM EST [facility] Name Value Range Interpretation Description Data Sup porting Code Source(s) Document(s ) Magnesium 1.8 Normal (applies Magnesium, [facility] [Mass/volume] {mEq/L} to non-numeric Serum Health Syst em in Serum or results) Plasma ID Date Data Source [id number] 09/18/2019 11:42:56 PM EST [facility] Name Value Range Interpretation Description Data Sup porting Code Source(s) Document(s ) Sodium 149 Above high Sodium, Serum [facility] [Moles/volume] in mmol/L normal Health Serum or Plasma System Potassium 3.3 Below low normal Potassium, [facility] [Mass/volume] in mmol/L Serum Health Serum or Plasma System Chloride 104 Normal (applies Chloride, [facility] [Moles/volume] in mmol/L to non-numeric Serum Health Serum or Plasma results) System Carbon dioxide, 32.0 Above high CO2, Serum [facility] total mmol/L normal Health [Moles/volume] in System Serum or Plasma TotalProtein 6.0 Below low normal Total Protein [facility] mg/dl [facility] System Glucose 166 Above high Glucose, [facility] [Mass/volume] in mg/dL normal Serum Health Serum or Plasma System Urea nitrogen 85 Above high Blood Urea [facility] [Mass/volume] in mg/dl normal Nitrogen, Health Serum or Plasma Serum System Creatinine 1.00 Normal (applies Creatinine, [facility] [Mass/volume] in mg/dl to non-numeric Serum Health Serum or Plasma results) System Alkaline 93 Normal (applies Alkaline [facility] phosphatase {IU/L} to non-numeric Phosphatase, Health isoenzymes results) Serum System [Enzymatic activity/volume] in Serum or Plasma by Heat stability Bilirubin direct 1.2 Normal (applies Bilirubin, [facility] and total panel mg/dl to non-numeric Serum Total Health [Mass/volume] - results) System Serum or Plasma DirectBilirubin 0.5 Above high Direct [facility] mg/dl normal Bilirubin Health System Aspartate 30 Normal (applies Aspartate [facility] aminotransferase {IU/L} to non-numeric Transaminase, Heal th [Enzymatic results) Serum System activity/volume] in Serum or Plasma by With P-5'-P Albumin 3.0 Below low normal Albumin, [facility] [Mass/volume] in {gm/dl} Serum Health Serum or Plasma System I.Phosphorus 2.2 Below low normal I. Phosphorus [facility] mg/dl [facility] System Alanine 38 Normal (applies Alanine [facility] aminotransferase {IU/L} to non-numeric Aminotransfer [facility] [Enzymatic results) ase, Serum System activity/volume] in Serum or Plasma Calcium 10.8 Above high Calcium, [facility] [Mass/volume] in mg/dl normal Total Serum Health Serum or Plasma System A/GRatio 1.00 Normal (applies A/G Ratio [facility] to non-numeric Health results) System Urate 10.8 Above high Uric Acid, [facility] [Mass/volume] in mg/dl normal Serum Health Serum or Plasma System Anion gap in Serum 13.00 Above high Anion Gap [facility] or Plasma mmol/L normal Health System Glomerular 53.99 Normal (applies GFR [facility] filtration to non-numeric Health rate/1.73 sq results) System M.predicted [Volume Rate/Area] in Serum or Plasma by Creatinine-based formula (CKD-EPI) eGFR will provide clinicians with a more accurate indicator of renal function then the serum creatinine. The eGFR is automa tically calculated from an empiric formula (endorsed by the [employer] ion) which incorporates age, sex, and race.Clinicians may notice surprisingly low GFR's with serum creatinine valueswithin normal range- particularly in elderly wo men (with low muscle mass).In the hospital setting, the eGFR should add an element of safety in drug dosing, in assessing the risk of IV contrast administration, and in assessing vascular risk.The NKF staging system is as follows:Normal: eGFR >90 with no kidney markersStage 1: eGFR >90 with kidney markers*Stage 2: eGFR 60- 89Stage 3: eGFR 30-59Stage 4: eGFR 15-29Stage 5: eGFR <15 (usually requir ing dialysis)*Markers include: Proteinuria, Hematuria, abnormal imaging-studies, or other blood or urine test abnormalities ID Date Data Source [id number] 09/18/2019 11:42:56 PM EST [facility] System Name Value Range Interpretation Description Data Source(s ) Supporting Code Document(s ) Troponin 0.50 Above high normal Troponin I [facility] IQuantit ng/mL Quantitative - Health System ative-MV MV Only Only The Troponin I result is consistent with Severe Cardiac Ischemia. ID Date Data Source [id number] 09/18/2019 11:42:56 PM EST [facility] Minimum 3 ml urine Name Value Range Interpretation Description Data Sup porting Code Source(s) Document(s ) S.pneu Not Normal (applies S. pneumonia [facility] moniaA DetectedReference to non-numeric AG, [place] [facility] G,[place] Range: Not results) System DetectedThis test was performed at:[facility] [address] [id number] Performed at:[employer] [address] [id number] Jones M.D., Ph.D. ID Date Data Source [id number] 09/18/2019 11:42:56 PM EST [facility] Minimum 1 ml urine Name Value Range Interpretation Description Data Sup porting Code Source(s) Document(s ) Legion Not DetectedReference Normal (applies Legionella M [facility] ellaAn Range: Not to non-numeric Antigen, Health tigen, DetectedThis assay is results) Urine System Urine specific for Legionella pneumophilaserogroup 1 which causes more than 50% of allLegionella infections. This assay will not detectinfections caused by other Legionella species/serogrps.Antig enuria may persist for prolonged periods of time.Legionella pneumophila serogroup 1 antigen can bedetected in urine within 2-3 days of infection andmay persist even after treatment. This assay doesnot detect other Legionella species or serogroups.This test was performed at:[facility] [address] [id number] Performed at:[employer] [address] [id number] Jones M.D., Ph.D. ID Date Data Source [id number] 09/18/2019 11:42:56 PM EST [facility] Name Value Range Interpretation Description Data Sup porting Code Source(s) Document(s ) Leukocytes 21.7 Above high WBC Count [facility] [#/volume] in {10^3_uL normal Health Unspecified } System specimen by Automated count Erythrocytes 3.61 Below low normal RBC Count [facility] [#/volume] in {10^6_uL Health Blood by } System Automated count Hemoglobin 12.2 Normal (applies Hemoglobin [facility] [Mass/volume] in {gm/dL} to non-numeric Health Blood results) System Hematocrit 39.3 % Normal (applies Hematocrit [facility] [Volume to non-numeric Health Fraction] of results) System Blood Erythrocyte mean 108.9 fl Above high MCV [facility] corpuscular normal Health volume [Entitic System volume] by Automated count Erythrocyte mean 33.8 pg Normal (applies MCH [facility] corpuscular to non-numeric Health hemoglobin results) System [Entitic mass] by Automated count Erythrocyte mean 31.0 Below low normal MCHC [facility] corpuscular {gm/dL} Health hemoglobin System concentration [Mass/volume] by Automated count Erythrocyte 15.4 % Above high RDW-CV [facility] distribution normal Health width [Entitic System volume] by Automated count Platelets 197 Normal (applies Platelet Count [facility] [#/volume] in {10^3_uL to non-numeric Health Plasma by } results) System Automated count Platelet mean 11.3 fl Above high MPV [facility] volume [Entitic normal Health volume] in Blood System by Automated count Monocytes 0.6 Normal (applies Monocyte # [facility] [#/volume] in {10^3_uL to non-numeric Health Blood by Manual } results) System count Eosinophils 0.00 Below low normal Eosinophil # [facility] [#/volume] in {10^3_uL Health Blood } System Neutrophils 20.0 Above high Neutrophil # [facility] [#/volume] in {10^3_uL normal Health Body fluid } System Basophils 0.03 Normal (applies Basophil # [facility] [#/volume] in {10^3_uL to non-numeric Health Blood by } results) System Automated count Lymphocyte 0.9 Below low normal Lymphocyte # [facility] percent {10^3_uL Health differential } System count (procedure) Neutrophils/100 92.1 % Above high Neutrophil % [facility] leukocytes in normal Health Blood by System Automated count Monocytes/100 2.9 % Below low normal Monocyte % [facility] leukocytes in Health Blood System Eosinophils/100 0.0 % Normal (applies Eosinophil % [facility]it leukocytes in to non-numeric Health Unspecified results) System specimen Basophils/100 0.1 % Normal (applies Basophil % [facility] leukocytes in to non-numeric Health Unspecified results) System specimen by Manual count Lymphocytes 4.2 % Below low normal Lymphocyte % [facility] [#/volume] in Health Blood by System Automated count ImmatureGranuloc 0.7 % Normal (applies Immature [facility] ytes% to non-numeric Granulocytes % Health results) System Nucleated 0.0 Normal (applies NRBC % [facility] erythrocytes {/100_WB to non-numeric Health [#/volume] in C} results) System Body fluid ImmatureGranuloc 0.15 Above high Immature [facility] ytes# {10^3_uL normal Granulocytes # Health } System NRBC# 0.00 Below low normal NRBC # [facility] {10^3_uL Health } System ID Date Data Source [id number] 09/18/2019 11:42:56 PM EST [facility] Name Value Range Interpretation Description Data Sup porting Code Source(s) Document(s ) Sodium 151 Above high Sodium, Serum [facility] [Moles/volume] in mmol/L normal Health Serum or Plasma System Potassium 3.2 Below low normal Potassium, [facility] [Mass/volume] in mmol/L Serum Health Serum or Plasma System Chloride 102 Normal (applies Chloride, [facility] [Moles/volume] in mmol/L to non-numeric Serum Health Serum or Plasma results) System Carbon dioxide, 33.0 Above high CO2, Serum [facility] total mmol/L normal Health [Moles/volume] in System Serum or Plasma TotalProtein 5.2 Below low normal Total Protein [facility] mg/dl [facility] System Glucose 251 Above high Glucose, [facility] [Mass/volume] in mg/dL normal Serum Health Serum or Plasma System Urea nitrogen 55 Above high Blood Urea [facility] [Mass/volume] in mg/dl normal Nitrogen, Health Serum or Plasma Serum System Creatinine 1.00 Normal (applies Creatinine, [facility] [Mass/volume] in mg/dl to non-numeric Serum Health Serum or Plasma results) System Alkaline 85 Normal (applies Alkaline [facility] phosphatase {IU/L} to non-numeric Phosphatase, Health isoenzymes results) Serum System [Enzymatic activity/volume] in Serum or Plasma by Heat stability Bilirubin.total 1.7 Above high Bilirubin, [facility] [Mass/volume] in mg/dl normal Serum Total Health Serum or Plasma System DirectBilirubin 0.8 Above high Direct [facility] mg/dl normal Bilirubin Health System Aspartate 38 Normal (applies Aspartate [facility] aminotransferase {IU/L} to non-numeric Transaminase, Heal th [Enzymatic results) Serum System activity/volume] in Serum or Plasma by With P-5'-P Albumin 2.5 Below low normal Albumin, [facility] [Mass/volume] in {gm/dl} Serum Health Serum or Plasma System I.Phosphorus 4.0 Normal (applies I. Phosphorus [facility] mg/dl to non-numeric Health results) System Alanine 37 Normal (applies Alanine [facility] aminotransferase {IU/L} to non-numeric Aminotransfer Heal th [Enzymatic results) ase, Serum System activity/volume] in Serum or Plasma Calcium 9.6 Normal (applies Calcium, [facility] [Mass/volume] in mg/dl to non-numeric Total Serum Health Serum or Plasma results) System A/GRatio 0.93 Normal (applies A/G Ratio [facility] to non-numeric Health results) System Urate 8.5 Above high Uric Acid, [facility] [Mass/volume] in mg/dl normal Serum Health Serum or Plasma System Anion gap in Serum 16.00 Above high Anion Gap [facility] or Plasma mmol/L normal Health System Glomerular 53.99 Normal (applies GFR [facility] filtration to non-numeric Health rate/1.73 sq results) System M.predicted [Volume Rate/Area] in Serum or Plasma by Creatinine-based formula (CKD-EPI) eGFR will provide clinicians with a more accurate indicator of renal function then the serum creatinine. The eGFR is automa tically calculated from an empiric formula (endorsed by the National Kidney [employer] ion) which incorporates age, sex, and race.Clinicians may notice surprisingly low GFR's with serum creatinine valueswithin normal range- particularly in elderly wo men (with low muscle mass).In the hospital setting, the eGFR should add an element of safety in drug dosing, in assessing the risk of IV contrast administration, and in assessing vascular risk.The NKF staging system is as follows:Normal: eGFR >90 with no kidney markersStage 1: eGFR >90 with kidney markers*Stage 2: eGFR 60- 89Stage 3: eGFR 30-59Stage 4: eGFR 15-29Stage 5: eGFR <15 (usually requir ing dialysis)*Markers include: Proteinuria, Hematuria, abnormal imaging-studies, or other blood or urine test abnormalities ID Date Data Source [id number] 09/18/2019 11:42:56 PM EST [facility] Name Value Range Interpretation Description Data Source(s ) Supporting Code Document(s ) Troponin 0.69 Above high normal Troponin I [facility] IQuantit ng/mL [facility] System ative-MV MV Only Only The Troponin I result is consistent with Severe Cardiac Ischemia. ID Date Data Source [id number] 09/18/2019 11:42:56 PM EST [facility] Name Value Range Interpretation Description Data Sup porting Code Source(s) Document(s ) Influenza virus Negative Normal (applies Flu A Viral [facility] A RNA [Presence] to non-numeric RNA Health in Unspecified results) System specimen by Probe and target amplification method Influenza virus Negative Normal (applies Flu B Viral [facility] B RNA [Presence] to non-numeric RNA Health in Unspecified results) System specimen by Probe and target amplification method ID Date Data Source [id number] 09/18/2019 11:42:56 PM EST [facility] Name Value Range Interpretation Description Data Sup porting Code Source(s) Document(s ) Bacteria NO GROWTH Culture [facility] identified in Bacteria Blood Health Syst em Blood by [facility] culture ID Date Data Source [id number] 09/18/2019 11:42:56 PM EST [facility] Name Value Range Interpretation Description Data Sup porting Code Source(s) Document(s ) Bacteria NO GROWTH Culture [facility] identified in Bacteria Blood Health Syst em Blood by [employer] culture ID Date Data Source [id number] 09/18/2019 11:42:56 PM EST [facility] Name Value Range Interpretation Description Data Sup porting Code Source(s) Document(s ) Leukocytes 19.4 Above high WBC Count [facility] [#/volume] in {10^3_uL normal Health Unspecified } System specimen by Automated count Erythrocytes 2.94 Below low normal RBC Count [facility] [#/volume] in {10^6_uL Health Blood by } System Automated count Hemoglobin 10.0 Below low normal Hemoglobin [facility] [Mass/volume] in {gm/dL} Health Blood System Hematocrit 32.7 % Below low normal Hematocrit [facility] [Volume Health Fraction] of System Blood Erythrocyte mean 111.2 fl Above high MCV [facility] corpuscular normal Health volume [Entitic System volume] by Automated count Erythrocyte mean 34.0 pg Normal (applies MCH [facility] corpuscular to non-numeric Health hemoglobin results) System [Entitic mass] by Automated count Erythrocyte mean 30.6 Below low normal MCHC [facility] corpuscular {gm/dL} Health hemoglobin System concentration [Mass/volume] by Automated count Erythrocyte 15.2 % Above high RDW-CV [facility] distribution normal Health width [Entitic System volume] by Automated count Platelets 167 Normal (applies Platelet Count [facility] [#/volume] in {10^3_uL to non-numeric Health Plasma by } results) System Automated count Platelet mean 11.7 fl Above high MPV [facility] volume [Entitic normal Health volume] in Blood System by Automated count Monocytes 0.6 Normal (applies Monocyte # [facility] [#/volume] in {10^3_uL to non-numeric Health Blood by Manual } results) System count Eosinophils 0.03 Below low normal Eosinophil # [facility] [#/volume] in {10^3_uL Health Blood } System Neutrophils 17.3 Above high Neutrophil # [facility] [#/volume] in {10^3_uL normal Health Body fluid } System Basophils 0.02 Normal (applies Basophil # [facility] [#/volume] in {10^3_uL to non-numeric Health Blood by } results) System Automated count Lymphocyte 1.4 Normal (applies Lymphocyte # [facility] percent {10^3_uL to non-numeric Health differential } results) System count (procedure) Neutrophils/100 88.8 % Above high Neutrophil % [facility] leukocytes in normal Health Blood by System Automated count Monocytes/100 2.9 % Below low normal Monocyte % [facility] leukocytes in Health Blood System Eosinophils/100 0.2 % Normal (applies Eosinophil % [facility] leukocytes in to non-numeric Health Unspecified results) System specimen Basophils/100 0.1 % Normal (applies Basophil % [facility] leukocytes in to non-numeric Health Unspecified results) System specimen by Manual count Lymphocytes 7.0 % Below low normal Lymphocyte % [facility] [#/volume] in Health Blood by System Automated count ImmatureGranuloc 1.0 % Above high Immature [facility] ytes% normal Granulocytes % Health System Nucleated 0.0 Normal (applies NRBC % [facility] erythrocytes {/100_WB to non-numeric Health [#/volume] in C} results) System Body fluid ImmatureGranuloc 0.19 Above high Immature [facility] ytes# {10^3_uL normal Granulocytes # Health } System NRBC# 0.00 Below low normal NRBC # [facility] {10^3_uL Health } System ID Date Data Source [id number] 09/18/2019 11:42:56 PM EST [facility] Name Value Range Interpretation Description Data Sup porting Code Source(s) Document(s ) Sodium 145 Normal (applies Sodium, Serum [facility] [Moles/volume] in mmol/L to non-numeric Health Serum or Plasma results) System Potassium 4.9 Normal (applies Potassium, [facility] [Mass/volume] in mmol/L to non-numeric Serum Health Serum or Plasma results) System Chloride 102 Normal (applies Chloride, [facility] [Moles/volume] in mmol/L to non-numeric Serum Health Serum or Plasma results) System Carbon dioxide, 29.0 Normal (applies CO2, Serum [facility] total mmol/L to non-numeric Health [Moles/volume] in results) System Serum or Plasma TotalProtein 5.9 Below low normal Total Protein [facility] mg/dl [facility] System Glucose 93 Normal (applies Glucose, [facility] [Mass/volume] in mg/dL to non-numeric Serum Health Serum or Plasma results) System Urea nitrogen 40 Above high Blood Urea [facility] [Mass/volume] in mg/dl normal Nitrogen, Health Serum or Plasma Serum System Creatinine 1.00 Normal (applies Creatinine, [facility] [Mass/volume] in mg/dl to non-numeric Serum Health Serum or Plasma results) System Alkaline 96 Normal (applies Alkaline [facility] phosphatase {IU/L} to non-numeric Phosphatase, Health isoenzymes results) Serum System [Enzymatic activity/volume] in Serum or Plasma by Heat stability Bilirubin.total 1.1 Normal (applies Bilirubin, [facility] [Mass/volume] in mg/dl to non-numeric Serum Total Health Serum or Plasma results) System DirectBilirubin 0.5 Above high Direct [facility] mg/dl normal Bilirubin Health System Aspartate 135 Above high Aspartate [facility] aminotransferase {IU/L} normal Transaminase, Health [Enzymatic Serum System activity/volume] in Serum or Plasma by With P-5'-P Albumin 2.4 Below low normal Albumin, [facility] [Mass/volume] in {gm/dl} Serum Health Serum or Plasma System I.Phosphorus 3.3 Normal (applies I. Phosphorus [facility] mg/dl to non-numeric Health results) System Alanine 59 Above high Alanine [facility] aminotransferase {IU/L} normal Aminotransfer Health [Enzymatic ase, Serum System activity/volume] in Serum or Plasma Calcium 9.6 Normal (applies Calcium, [facility] [Mass/volume] in mg/dl to non-numeric Total Serum Health Serum or Plasma results) System A/GRatio 0.69 Normal (applies A/G Ratio [facility] to non-numeric Health results) System Urate 6.1 Normal (applies Uric Acid, [facility] [Mass/volume] in mg/dl to non-numeric Serum Health Serum or Plasma results) System Anion gap in Serum 14.00 Above high Anion Gap [facility] or Plasma mmol/L normal Health System Glomerular 53.99 Normal (applies GFR [facility] filtration to non-numeric Health rate/1.73 sq results) System M.predicted [Volume Rate/Area] in Serum or Plasma by Creatinine-based formula (CKD-EPI) eGFR will provide clinicians with a more accurate indicator of renal function then the serum creatinine. The eGFR is automa tically calculated from an empiric formula (endorsed by the [employer] ion) which incorporates age, sex, and race.Clinicians may notice surprisingly low GFR's with serum creatinine valueswithin normal range- particularly in elderly wo men (with low muscle mass).In the hospital setting, the eGFR should add an element of safety in drug dosing, in assessing the risk of IV contrast administration, and in assessing vascular risk.The NKF staging system is as follows:Normal: eGFR >90 with no kidney markersStage 1: eGFR >90 with kidney markers*Stage 2: eGFR 60- 89Stage 3: eGFR 30-59Stage 4: eGFR 15-29Stage 5: eGFR <15 (usually requir ing dialysis)*Markers include: Proteinuria, Hematuria, abnormal imaging-studies, or other blood or urine test abnormalities ID Date Data Source [id number] 09/18/2019 11:42:56 PM EST Emanuel lew System Name Value Range Interpretation Description Data Sup porting Code Source(s) Document(s ) Leukocytes 6.3 Normal (applies WBC Count [facility] [#/volume] in {10^3_uL to non-numeric Health Unspecified } results) System specimen by Automated count Erythrocytes 3.64 Below low normal RBC Count [facility] [#/volume] in {10^6_uL Health Blood by } System Automated count Hemoglobin 11.2 Below low normal Hemoglobin [facility] [Mass/volume] in {gm/dL} Health Blood System Hematocrit 35.4 % Below low normal Hematocrit [facility] [Volume Health Fraction] of System Blood Erythrocyte mean 97.3 fl Normal (applies MCV [facility] corpuscular to non-numeric Health volume [Entitic results) System volume] by Automated count Erythrocyte mean 30.8 pg Normal (applies MCH [facility] corpuscular to non-numeric Health hemoglobin results) System [Entitic mass] by Automated count Erythrocyte mean 31.6 Below low normal MCHC [facility] corpuscular {gm/dL} Health hemoglobin System concentration [Mass/volume] by Automated count Erythrocyte 14.5 % Normal (applies RDW-CV [facility] distribution to non-numeric Health width [Entitic results) System volume] by Automated count Platelets 215 Normal (applies Platelet Count [facility] [#/volume] in {10^3_uL to non-numeric Health Plasma by } results) System Automated count Platelet mean 12.1 fl Above high MPV [facility] volume [Entitic normal Health volume] in Blood System by Automated count Monocytes 0.7 Normal (applies Monocyte # [facility] [#/volume] in {10^3_uL to non-numeric Health Blood by Manual } results) System count Eosinophils 0.09 Normal (applies Eosinophil # [facility] [#/volume] in {10^3_uL to non-numeric Health Blood } results) System Neutrophils 4.2 Normal (applies Neutrophil # [facility] [#/volume] in {10^3_uL to non-numeric Health Body fluid } results) System Basophils 0.02 Normal (applies Basophil # [facility] [#/volume] in {10^3_uL to non-numeric Health Blood by } results) System Automated count Lymphocyte 1.3 Normal (applies Lymphocyte # [facility] percent {10^3_uL to non-numeric Health differential } results) System count (procedure) Neutrophils/100 66.6 % Normal (applies Neutrophil % [facility] leukocytes in to non-numeric Health Blood by results) System Automated count Monocytes/100 11.3 % Above high Monocyte % [facility] leukocytes in normal Health Blood System Eosinophils/100 1.4 % Normal (applies Eosinophil % [facility] leukocytes in to non-numeric Health Unspecified results) System specimen Basophils/100 0.3 % Normal (applies Basophil % [facility] leukocytes in to non-numeric Health Unspecified results) System specimen by Manual count Lymphocytes 20.2 % Below low normal Lymphocyte % [facility] [#/volume] in Health Blood by System Automated count ImmatureGranuloc 0.2 % Normal (applies Immature [facility] ytes% to non-numeric Granulocytes % Health results) System Nucleated 0.0 Normal (applies NRBC % [facility] erythrocytes {/100_WB to non-numeric Health [#/volume] in C} results) System Body fluid ImmatureGranuloc 0.01 Normal (applies Immature [facility] ytes# {10^3_uL to non-numeric Granulocytes # Health } results) System NRBC# 0.00 Below low normal NRBC # [facility] {10^3_uL Health } System ID Date Data Source [id number] 09/18/2019 11:42:56 PM EST [facility] Name Value Range Interpretation Description Data Sup porting Code Source(s) Document(s ) Sodium 144 Normal (applies Sodium, Serum [facility] [Moles/volume] in mmol/L to non-numeric Health Serum or Plasma results) System Potassium 3.5 Below low normal Potassium, [facility] [Mass/volume] in mmol/L Serum Health Serum or Plasma System Chloride 101 Normal (applies Chloride, [facility] [Moles/volume] in mmol/L to non-numeric Serum Health Serum or Plasma results) System Carbon dioxide, 32.0 Above high CO2, Serum [facility] total mmol/L normal Health [Moles/volume] in System Serum or Plasma TotalProtein 7.1 Normal (applies Total Protein [facility] mg/dl to non-numeric Health results) System Glucose 104 Normal (applies Glucose, [facility] [Mass/volume] in mg/dL to non-numeric Serum Health Serum or Plasma results) System Urea nitrogen 14 Normal (applies Blood Urea [facility] [Mass/volume] in mg/dl to non-numeric Nitrogen, Health Serum or Plasma results) Serum System Creatinine 0.80 Normal (applies Creatinine, [facility] [Mass/volume] in mg/dl to non-numeric Serum Health Serum or Plasma results) System Alkaline 188 Above high Alkaline [facility] phosphatase {IU/L} normal Phosphatase, Health isoenzymes Serum System [Enzymatic activity/volume] in Serum or Plasma by Heat stability Bilirubin.total 0.4 Normal (applies Bilirubin, [facility] [Mass/volume] in mg/dl to non-numeric Serum Total Health Serum or Plasma results) System DirectBilirubin 0.2 Normal (applies Direct [facility] mg/dl to non-numeric Bilirubin Health results) System Aspartate 32 Normal (applies Aspartate [facility] aminotransferase {IU/L} to non-numeric Transaminase, Heal th [Enzymatic results) Serum System activity/volume] in Serum or Plasma by With P-5'-P Albumin 3.2 Below low normal Albumin, [facility] [Mass/volume] in {gm/dl} Serum Health Serum or Plasma System I.Phosphorus 3.6 Normal (applies I. Phosphorus [facility] mg/dl to non-numeric Health results) System Alanine 25 Normal (applies Alanine [facility] aminotransferase {IU/L} to non-numeric Aminotransfer Heal th [Enzymatic results) ase, Serum System activity/volume] in Serum or Plasma Calcium 8.9 Normal (applies Calcium, [facility] [Mass/volume] in mg/dl to non-numeric Total Serum Health Serum or Plasma results) System A/GRatio 0.82 Normal (applies A/G Ratio [facility] to non-numeric Health results) System Urate 5.5 Normal (applies Uric Acid, [facility] [Mass/volume] in mg/dl to non-numeric Serum Health Serum or Plasma results) System Anion gap in Serum 11.00 Normal (applies Anion Gap [facility] or Plasma mmol/L to non-numeric Health results) System Glomerular 69.70 Normal (applies GFR [facility] filtration to non-numeric Health rate/1.73 sq results) System M.predicted [Volume Rate/Area] in Serum or Plasma by Creatinine-based formula (CKD-EPI) eGFR will provide clinicians with a more accurate indicator of renal function then the serum creatinine. The eGFR is automa tically calculated from an empiric formula (endorsed by the [employer] ion) which incorporates age, sex, and race.Clinicians may notice surprisingly low GFR's with serum creatinine valueswithin normal range- particularly in elderly wo men (with low muscle mass).In the hospital setting, the eGFR should add an element of safety in drug dosing, in assessing the risk of IV contrast administration, and in assessing vascular risk.The NKF staging system is as follows:Normal: eGFR >90 with no kidney markersStage 1: eGFR >90 with kidney markers*Stage 2: eGFR 60- 89Stage 3: eGFR 30-59Stage 4: eGFR 15-29Stage 5: eGFR <15 (usually requir ing dialysis)*Markers include: Proteinuria, Hematuria, abnormal imaging-studies, or other blood or urine test abnormalities ID Date Data Source [id number] 09/18/2019 11:42:56 PM EST [facility] System Name Value Range Interpretation Description Data Sup porting Code Source(s) Document(s ) aPTT in Blood 30.1 Normal (applies Activated [facility] by Coagulation {Seconds to non-numeric Partial Health assay } results) Thromboplastin System Time ID Date Data Source [id number] 09/18/2019 11:42:56 PM EST [facility] Name Value Range Interpretation Description Data Sup porting Code Source(s) Document(s ) Prothrombintim 12.30 Above high normal Prothrombin [facility] e(PT) {seconds time (PT) Health System } Prothrombin Ab 1.17 Above high normal INR Result [facility] [Units/volume] {Ratio} Health System in Serum or Plasma Normal = 0.7-1.1Therapeutic = 2.0-3.0Mec hanical Heart = 3.0-4.5 ID Date Data Source [id number] 09/18/2019 06:05:00 PM EST [facility] PROCEDURE INFORMATION: Exam: CT Head Wit hout Contrast Exam date and time: 09/18/2019 6:14 PM Age: 74 years old Clinical indic ation: Visit reason: Headache; TECHNIQUE: Imaging protocol: Computed tomography of the head without contrast. Radiation optimization: All CT scans at this [facility] it use at least one of thesedose optimization techniques: automated expos ure control; mA and/or kV adjustment per patient size (includestargeted exams whe re dose is matched to clinical indication); or iterative reconstruction.COMPARISON: No relevant prior studies available. FINDINGS: Brain: There is mild diffusece rebral atrophy present, consistent with this patient's age. Areas of decreased attenu ation noted within theperiventricular and subcortical white matter likely related to chronic microangiopathic ischemic changes given thepatient's stated age. No eviden ce of acute intracranial hemorrhage. Ventricles: Normal. No ventriculomegaly. Bones/joints: Unremarkable. No acute fracture. Sinuses: Visualized sinuses ar e unremarkable. No fluid levels.Mastoid air cells: Visualized mastoid air cells are well aerated. Soft tissues: Unremarkable.IMPRESSION: No evidence of acute intracranial hemorrhage. Name Value Range Interpretation Code Description Data Promise rce(s) Supporting Document(s ) Procedure Vital Signs ID Date Data Source UNK Name Value Range Interpretation Code Description Data Source(s) Diastolic blood 89 mm[Hg] 0 - 999 Above high normal 89 mm[Hg] [facility] Systolic blood 154 mm[Hg] 0 - 999 Above high normal 154 mm[Hg] [facility] pressure [facility] Oxygen saturation 97 % 0 - 999 Normal (applies to 97 % [facility] in Arterial blood non-numeric results) [facility] by Pulse oximetry Respiratory rate 17 0 - 999 Normal (applies to 17 [facility] non-numeric results) [facility] Heart rate 62 0 - 999 Normal (applies to 62 [facility] non-numeric results) [facility] Body surface area 1.4 m2 1.4 m2 [facility] Derived from Health Syste m formula Body mass index 19.8 kg/m2 19.8 kg/m2 [facility] (BMI) [Ratio] Health Syst em Body weight 47.62 kg 47.62 kg [facility] Body height 154.94 cm 154.94 cm [facility] Body temperature 98 [degF] 0 - 200 Normal (applies to 98 [degF] [facility] non-numeric results) [facility] Body temperature 36.6 Amber 0 - 99.9 Normal (applies to 36.6 Amber [facility] non-numeric results) [facility]
--- NOTE | 2020-06-29 02:02 | PDOC ---
History of Present Illness - General Chief Complaint: Rectal Bleed Stated Complaint: RECTAL BLEEDING Time Seen by Provider: 06/29/20 01:48 - History of Present Illness Initial Comments: Nevin Saravia is a 74yo woman with a PMH of reported HTN and per chart review also HLD, NIDDM, a-fib (on Eliquis), ?CKD who presents reporting left-sided abdominal pain, multiple episodes of diarrhea, and now BRBPR at home today. Ms Saravia states that she had numerous episodes of diarrhea today. In the afternoon, she started noticing some light red blood mixed with the stool. This evening when she had a bowel movement, she noticed continued rectal bleeding and became concerned. She tried calling her PMD's office but did not get through to anyone. Ms Saravia additionally felt weak and lightheaded and developed a frontal headache overnight so decided that she needed to come to the ED for evaluation. She denies any fever/chills, nausea/vomiting, right-sided abdominal pain, black stools, history of prior rectal bleeding or hemorrhoids, or other recent or current symptoms. She endorses increased flatus today. She does report one colonoscopy "years ago" that she states was normal but never had a second one completed. Past History - Medical History Allergies/Adverse Reactions: Allergies Allergy/AdvReac Type Severity Reaction Status Date / Time melon Allergy Verified 06/29/20 06:50 strawberry Allergy Verified 06/29/20 06:50 lactose AdvReac Verified 06/29/20 06:50 Home Medications: Ambulatory Orders Brimonidine Tartrate [Alphagan 0.15% -] 1 drop OU BID 06/02/18 Ferrous Sulfate [Feosol] 325 mg PO BID 07/15/18 Albuterol Sulfate [Proair Hfa] 8.5 gm IH DAILY 07/21/18 Apixaban [Eliquis] 5 mg PO BID 07/21/18 Furosemide [Lasix -] 20 mg PO BID 10/31/18 Atorvastatin Ca [Lipitor] 20 mg PO DAILY 11/04/18 Glimepiride 2 mg PO BID 11/04/18 predniSONE [Deltasone] 20 mg PO BID 11/04/18 Cholecalciferol (Vitamin D3) [Vitamin D3] 1 tab PO DAILY 11/05/18 Folic Acid 1 mg PO DAILY 11/05/18 Losartan Potassium [Cozaar -] 100 mg PO DAILY #30 tablet 11/12/18 Pen Needle, Diabetic [1St Tier Unifine Pentips Plus] 1 each MC DAILY #30 dis.needle 11/12/18 Valacyclovir HCl [Valtrex -] 500 mg PO BID #4 tablet 11/12/18 Insulin Glargine,Hum.rec.anlog [Lantus Solostar PEN (NF)] 20 units SQ DAILY 11/28/18 Anemia: Yes Asthma: Yes (bronchial asthma) Cancer: No Cardiac Disorders: Yes (afib;sick sinus syndrome) CVA: No COPD: No (oxygen dependent 2l nc) CHF: Yes (recent exacerbation of CHF) DVT: No Dementia: No Diabetes: Yes GI Disorders: No Disorders: No HTN: Yes Hypercholesterolemia: Yes (HLD) Liver Disease: No Seizures: No Thyroid Disease: No - Surgical History Abdominal Surgery: No Appendectomy: No Cardiac Surgery: No Cholecystectomy: No Lung Surgery: No Neurologic Surgery: No Orthopedic Surgery: No - Immunization History Immunization Up to Date: Yes - Psycho-Social/Smoking History Smoking History: Never smoked Have you smoked in the past 12 months: No Information on smoking cessation initiated: No - Substance Abuse Hx (Audit-C & DAST Scrn) How often the patient has a drink containing alcohol: Never Score: In Men: 4 or > Positive; In Women: 3 or > Positive: 0 Screen Result (Pos requires Nsg. Audit-10AR): Negative In the last yr the pt used illegal drug/Rx for NonMed reason: No Score: Yes response is considered Positive: 0 Screen Result (Positive result requires Nsg. DAST-10): Negative Review of Systems - Review of Systems Comments:: General: No fevers, no chills, no weight or appetite change, no malaise HEENT: No changes in vision, no changes in hearing, no congestion, no sore throat CV: No chest pain, no palpitations, no LE edema Pulm: No SOB, no cough, no wheezing GI: No nausea or vomiting. +Diarrhea, +BRBPR, no melena : No frequency, no urgency, no dysuria Musc: No back pain, no joint swelling, no recent injury Skin: No rash, no lesions, no erythema Endo: No excessive thirst, no heat/cold intolerance Heme: No unusual bruising or bleeding, no swollen glands Neuro: No syncope, no numbness/tingling, no focal weakness Vasc: No claudication Psych: No recent change in mood, no SI or HI *Physical Exam - Vital Signs Last Vital Signs Temp Pulse Resp BP Pulse Ox 98.9 F 67 18 187/75 H 100 06/29/20 01:43 06/29/20 01:43 06/29/20 01:43 06/29/20 01:43 06/29/20 01:43 - Physical Exam General: Comfortable, no acute distress HEENT: Atraumatic, PERRL, EOMI, MMM, voice normal Cards: RRR, no murmur appreciated Pulm: Comfortable on room air, clear to auscultation bilaterally Abd: Soft, nondistended. TTP over left abdomen. No peritoneal signs : No CVA tenderness Rectal: Normal tone, no blood noted, no perianal lesions. No stool appreciated Ext: Atraumatic. No LE edema. ROM intact. WWP Skin: Normal color, no rashes or lesions Neuro: A&Ox3, CN grossly intact, normal speech, motor/sensory grossly intact and symmetric Psych: Mood appropriate to situation ED Treatment Course - LABORATORY CBC & Chemistry Diagram: 06/29/20 03:32 06/29/20 05:33 Medical Decision Making - Medical Decision Making 06/29/20 02:02 Nevin Saravia is a 74yo woman with a PMH of reported HTN and per chart review also HLD, NIDDM, a-fib (on Eliquis), ?CKD who presents reporting left-sided abdominal pain, multiple episodes of diarrhea, and now BRBPR at home today. - Rectal exam without any external abnormalities, gross bleeding, or hemorrhoids. No stool on glove. Pt states she needs to have a bowel movement, will supply a stool sample. Unclear from pt's description whether there is a small amount of bleeding eg from a hemorrhoid vs large volume bleeding vs melena - Possible GI bleed secondary to AC, diverticulitis, bleeding due to irritation from diarrhea due to diverticulitis or colitis, possible slow upper GI bleed though no known history of PUD. Less likely mesenteric ischemia, though possible ischemic colitis given age and multiple medical problems. - CBC, CMP, coags, T&S, trop, EKG, CXR, FOBT, UA, UCx - Will need CT, pending labs to check Cr for possible contrast 06/29/20 04:12 - CBC unremarkable, hgb wnl - UA negative for UTI - FOBT positive. Pantoprazole 40mg ordered. NPO. - Acetaminophen for continued pain - EKG w/ borderline bradycardia with HR 59, sinus rhythm w/ sinus arrhythmia, normal axis, normal intervals. No concerning ST changes. 06/29/20 05:18 - Chemistry grossly hemolized, will reorder due to reported hyperkalemia - Cr 1.4 - CTAP w/ contrast ordered for evaluation of abd pain, diarrrhea, rectal bleeding 06/29/20 06:09 - Repeat chemistry with potassium 4.3. Sodium 142 from 132 on initial chemistry. BUN 25, Cr 1.3 - Pt taken for CT 06/29/20 06:48 - CT completed, reviewed in the ED. Apparent wall thickening of descending and sigmoid colon, but radiology report still pending. - Pt reports feeling improved. Has had several more BM's while in the ED. Reports brown stool with red blood. 06/29/20 07:05 - Signed out to Dr Rivers for the remainder of her ED care Discussed with Dr Lei Alonso PGY3 Discharge - Discharge Information Problems reviewed: Yes Clinical Impression/Diagnosis: Guaiac positive stools Abdominal pain Qualifiers: Abdominal location: unspecified location Qualified Code(s): R10.9 - Unspecified abdominal pain Condition: Fair - Follow up/Referral Referrals: Alejandra Jeffrey MD [Primary Care Provider] - - Patient Discharge Instructions - Post Discharge Activity
--- NOTE | 2020-06-29 02:32 | PDOC ---
Attending Attestation - Resident Resident Name: GavinAnabel - ED Attending Attestation I have performed the following: I have examined & evaluated the patient, The case was reviewed & discussed with the resident, I agree w/resident's findings & plan, Exceptions are as noted - HPI HPI: 06/29/20 02:25 74 yo F h/o HTN, HLD, DM, afib on eliquis p/w L sided abdominal pain a/w multiple episodes of diarrhea today. States she had to strain earlier today and had a BM in the afternoon that had light red blood mixed with the stool. She had another BM in the evening with continued bleeding which prompted her to come to the ED. Also states she was feeling generalized weakness and lightheaded prior to coming to the ED. Denies n/v. - Physicial Exam PE: 06/29/20 02:28 General: well appearing Abdomen: soft, +LUQ and LLQ ttp, no rebound, no guarding, no masses Rectal: no external hemorrhoids or fissures noted, no tenderness on JOHN, no palpable hemorrhoids, no stool or blood on JOHN - Medical Decision Making 06/29/20 02:32 74 yo F with abdominal pain and diarrhea with reports of blood in stool, concern for lower GI bleed possibly 2/2 a/c use vs. colitis vs. diverticulitis as patient with LLQ and LUQ ttp. Plan: -labs -urine -will send stool for guiaic if patient able to produce stool -CT a/p -pain control as needed -reassess This clinical encounter is taking place during a federal and state health care emergency attributable to the novel Raymond Virus pandemic. The Nurses Assistant of the Department of Health and Human Services has declared, pursuant to the Public Health Service Act 319F-3 (42 U.S.C. 247d-6d), that a covered persons activities related to medical countermeasures against COVID-19 will be immune from liability under Federal and State law. Pt. signedout to incoming day team. Discharge - Discharge Information Problems reviewed: Yes Clinical Impression/Diagnosis: Abdominal pain, Guaiac positive stools Condition: Fair - Follow up/Referral - Patient Discharge Instructions - Post Discharge Activity
[2020-06-29 03:49] LABS: EPI CELLS 22 /uL (0-25.1); HYALINE CASTS 6 /uL (0-3.1); INR 1.1 (0.83-1.09); URINE APPEARANCE CLEAR; URINE BACTERIA 21 /uL (0-1359); URINE BILIRUBIN NEGATIVE (NEGATIVE); URINE COLOR YELLOW; URINE GLUCOSE (UA) NEGATIVE (NEGATIVE); URINE KETONE NEGATIVE (NEGATIVE); URINE LEUK ESTERASE TRACE (NEGATIVE); URINE NITRITE NEGATIVE (NEGATIVE); URINE PROTEIN 2+ (NEGATIVE); URINE RBC 114 /uL (0-23.9); URINE UROBILINOGEN 0.2 mg/dL (0.2-1.0); URINE WBC 28 /uL (0-25.8)
[2020-06-29 03:51] LABS: ACTIVATED PTT 36.5 SECONDS (25.2-36.5)
[2020-06-29 03:52] LABS: BASO % 0.5 % (0-2.0); EOS % 0.4 % (0-4.5); HEMATOCRIT 35.9 % (32.4-45.2); HEMOGLOBIN 11.9 GM/dL (10.7-15.3); LYMPH % 10.4 % (8-40); MCH 32.5 pg (25.7-33.7); MCHC 33.1 g/dl (32.0-36.0); MEAN CELL VOLUME 98.2 fl (80-96); MEAN PLT VOLUME 9.4 fl (7.5-11.1); NEUT % 82.7 % (42.8-82.8); PLATELET COUNT 223 K/MM3 (134-434); RBC 3.66 M/mm3 (3.60-5.2); RDW 13.2 % (11.6-15.6); WHITE BLOOD COUNT 9.1 K/mm3 (4.0-10.0)
[2020-06-29] MEDS ORDERED: LACTATED RINGERS SOLUTION 1000 ML INFUS.BAG IV ONE (04:11)
[2020-06-29] MEDS ORDERED: ACETAMINOPHEN 1000 MG/100 ML VIAL (NON FORMULARY) IVPB ONE (04:11)
[2020-06-29] MEDS ORDERED: PANTOPRAZOLE SODIUM 40 MG VIAL IVPUSH ONE (04:38)
[2020-06-29] MEDS ORDERED: ACETAMINOPHEN INJECTION 100 ML IVPB ONE (05:14)
[2020-06-29] MEDS ORDERED: PANTOPRAZOLE SODIUM 40 MG VIAL ONE (05:15)
[2020-06-29 05:16] LABS: ALBUMIN 3.3 g/dl (3.4-5.0); ALK PHOS 146 U/L (45-117); ANION GAP 2 MMOL/L (8-16); BILIRUBIN,TOTAL 0.6 mg/dL (0.2-1); BLOOD UREA NITROGEN 29.1 mg/dL (7-18); CALCIUM 9.1 mg/dL (8.5-10.1); CHLORIDE 104 mmol/L (98-107); CO2 26 mmol/L (21-32); CREATININE 1.4 mg/dL (0.55-1.3); GLUCOSE,RANDOM 103 mg/dL (74-106); SGOT/AST 90 U/L (15-37); SGPT/ALT 27 U/L (13-61); SODIUM 132 mmol/L (136-145)
[2020-06-29 05:18] LABS: POTASSIUM > 10.0 mmol/L (3.5-5.1)
[2020-06-29 06:03] LABS: ALBUMIN 3.3 g/dl (3.4-5.0); BILIRUBIN,TOTAL 0.6 mg/dL (0.2-1); BLOOD UREA NITROGEN 25.2 mg/dL (7-18); CREATININE 1.3 mg/dL (0.55-1.3); POTASSIUM 4.3 mmol/L (3.5-5.1); TOT PROT 7.7 g/dl (6.4-8.2)
--- OUTSIDE RECORDS SUMMARY | 2020-06-29 08:18 | XMS ---
:1945 Author Organization [facility] Care Team Providers Name Role Phone Other, Doctor Unavailable Unavailable Brian Riojas Unavailable Unavailable Re-disclosure Warning The records that [...] is protected by Article 27-F of the [facility] Public Health law. If you continue you may haveaccess to information: Regarding HIV / AIDS; Provided by facilities licensed or operated by the [facility] Office of Mental Health; or Provided by the [facility] Office for People With Developmental Disabilities. If such information is present, then the following [facility] mandated warning applies: This information has been [...] law may result in a fine or skilled nursing sentence or both. A general authorization for the release of medical or other information is NOT sufficient authorization for further disclosure. Encounters Encounter Providers Location Date Indications Data Source(s ) Emergency Attender: Brian [id number] 09/18/2019 PT STATES HIGH BP [facility] - [facility] GustaveAttender: 01:47:[address] [facility] [place] Doctor Other EST - 09/18/2019 10:42:00 PM EST PT STATES HIGH BP Patient discharged. 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 [id number] SP [id number] 1 Problems, Conditions, and Diagnoses Code Display Name Description Problem Type Effective Dates Data Source(s) I10 Uncontrolled Uncontrolled 43599-9 09/18/2019 [facility] hypertension hypertension 12:00:00 AM EST Healt h System R51 Headache Headache 18461-5 09/18/2019 [facility] 12:00:00 AM EST Health Sy stem PT STATES HIGH BP PT STATES HIGH BP Diagnosis 09/18/2019 [facility] 01:47:00 PM EST [place] [facility] I11.0 Hypertensive heart Hypertensive heart Diagnosis 0 [facility] disease with heart disease with heart 01:47:[address] [facility] failure failure I50.9 Heart failure, Heart failure Diagnosis 09/18/2019 [facility] ount unspecified 01:47:00 PM [facility] H ospital R51 Headache Headache Diagnosis 09/18/2019 [facility] 01:47:00 PM [facility] Ho spital I10 Essential Uncontrolled Diagnosis 09/18/2019 [facility] (primary) hypertension 01:47:00 PM [facility] hypertension Surgeries/Procedures Procedure Description Date Indications Data Source(s) Computerized axial 09/18/2019 [facility] tomography of brain 06:05:00 PM EST Syste m (procedure) - 09/18/2019 06:05:00 PM EST Results ID Date Data Source [id number] 09/18/2019 11:42:56 PM EST [facility] Name Value Range Interpretation Description Data Sup porting Code Source(s) Document(s ) aPTT in Blood 37.3 Above high Activated [facility] by Coagulation {Seconds normal Partial Health assay } Thromboplastin System Time ID Date Data Source [id number] 09/18/2019 11:42:56 PM EST [facility] He alth [...] Heart = 3.0-4.5 ID Date Data Source [id number] 09/18/2019 11:42:56 PM EST [facility] alth [...] {10^3_uL} normal System ID Date Data Source [id number] 09/18/2019 11:42:56 PM EST [facility] Name Value Range Interpretation Description Data Source(s ) Supporting Code Document(s ) B-TypeNa 818.1 Above high normal B-Type [facility] triuetic pg/mL [facility] Peptide- Peptide - MV MVOnly Only ID Date Data Source [id number] 09/18/2019 11:42:56 PM EST [facility] He alth [...] urine test abnormalities ID Date Data Source [id number] 09/18/2019 11:42:56 PM EST [facility] He louann [...] non-numeric Health Serum or Plasma results) System [id number] 91.9 % Below low normal O2 Saturation [facility] IonizedCalcium 1.21 Normal (applies Ionized [facility] mmol/L to non-numeric Calcium Health results) System BaseExcess. 4.6 Above high Base Excess. [facility] mmol/L normal Health System ID Date Data Source [id number] 09/18/2019 11:42:56 PM EST [facility] Name Value Range Interpretation Description Data Source(s ) Supporting Code Document(s ) Troponin 0.01 Normal (applies to Troponin I [facility] IQuantit ng/mL non-numeric Quantitative - Health System ative-MV results) MV Only Only ID Date Data Source [id number] 09/18/2019 11:42:56 PM EST [facility] Name Value Range Interpretation Description Data Sup porting Code Source(s) Document(s ) Bacteria NO GROWTH Culture [facility] identified in Bacteria Blood Health Syst em Blood by Aerobe culture ID Date Data Source [id number] 09/18/2019 11:42:56 PM EST [facility] Name Value Range Interpretation Description Data Sup porting Code Source(s) Document(s ) Bacteria NO GROWTH Culture [facility] identified in Bacteria Blood Health Syst em Blood by Aerobe culture ID Date Data Source [id number] 09/18/2019 11:42:56 PM EST [facility] Name Value Range Interpretation Description Data Sup porting Code Source(s) Document(s ) Color YELLOW Normal (applies Color [facility] to non-numeric Health results) System Specific gravity 1.010 Normal (applies Urine Specific [facility] of Urine to non-numeric [facility] results) System pH.. 6.5 Normal (applies [...] non-numeric System results) ID Date Data Source [id number] 09/18/2019 11:42:56 PM EST [facility] Name Value Range Interpretation Description Data Sup porting Code Source(s) Document(s ) Deprecated NO GROWTH Aerobic [facility] Bacteria Culture, Urine Health System identified in Urine by Aerobe culture ID Date Data Source [id number] 09/18/2019 11:42:56 PM EST [facility] Speckled top tube Name Value Range Interpretation Description Data Sup porting Code Source(s) Document(s ) MycoplasmaPneumoniae Negative Normal (applies Mycoplasma [facility] to non-numeric Pneumoniae Health results) System Method: Enzyme Immunoassay (EIA) ID Date Data Source [id number] 09/18/2019 11:42:56 PM EST [facility] Name Value Range Interpretation Description Data Source(s ) Supporting Code Document(s ) LacticAc 0.96 Normal (applies to Lactic Acid, [facility] id,Plasm {mEq/L} non-numeric Plasma *[facility] a*MOUNTV results) ASHWIN ONLY* ERNONONL Y* ID Date Data Source [id number] 09/18/2019 11:42:56 PM EST [facility] He alth [...] Health results) System ID Date Data Source [id number] 09/18/2019 11:42:56 PM EST [facility] Name Value Range Interpretation Description Data Source(s ) Supporting Code Document(s ) Blood,Oc Negative Normal (applies to Blood, Occult [facility] cultFece non-numeric Feces Health System s results) ID Date Data Source [id number] 09/18/2019 11:42:56 PM EST [facility] Name Value Range Interpretation Description Data Sup porting Code Source(s) Document(s ) Transferrin 201.0 Normal (applies Transferrin, [facility] [Mass/volume] mg/dl to non-numeric Serum Health Syst em in Serum or results) Plasma ID Date Data Source [id number] 09/18/2019 11:42:56 PM EST [facility] He alth [...] Iron. 31 ug/dL Below low normal Iron. [facility] System ID Date Data Source [id number] 09/18/2019 11:42:56 PM EST [facility] Name Value Range Interpretation Description Data Sup porting Code Source(s) Document(s ) Ferritin 259.6 Normal (applies Ferritin, [facility] [Mass/volume ng/ml to non-numeric Serum Health Syste m ] in Serum results) or Plasma ID Date Data Source [id number] 09/18/2019 11:42:56 PM EST [facility] Name Value Range Interpretation Description Data Sup porting Code Source(s) Document(s ) Cobalamin 761 Normal (applies Vitamin B12, [facility] (Vitamin B12) pg/ml to non-numeric Serum Health Syst em [Mass/volume] results) in Serum or Plasma ID Date Data Source [id number] 09/18/2019 11:42:56 PM EST [facility] Name Value Range Interpretation Description Data Source(s ) Supporting Code Document(s ) Folate 14.30 Normal (applies to Folate, Serum [facility] [Mass/volu ng/ml non-numeric Health System me] in results) Serum or Plasma ID Date Data Source [id number] 09/18/2019 11:42:56 PM EST [facility] He alth [...] Alkaline [facility] phosphatase {IU/L} to non-numeric Phosphatase, [facility] isoenzymes results) Serum System [Enzymatic activity/volume] [...] urine test abnormalities ID Date Data Source [id number] 09/18/2019 11:42:56 PM EST [facility] System Name Value Range Interpretation Description Data Sup porting Code Source(s) Document(s ) Magnesium 1.5 Normal (applies Magnesium, [facility] [Mass/volume] {mEq/L} to non-numeric Serum Health Syst em in Serum or results) Plasma ID Date Data Source [id number] 09/18/2019 11:42:56 PM EST [facility] He alth [...] Serum or Plasma results) <200 mg/dL = [id number] - 239 md/dL = Borderline>240 mg/dL = [...] or Plasma results) ID Date Data Source [id number] 09/18/2019 11:42:56 PM EST [facility] Name Value Range Interpretation Description Data Sup porting Code Source(s) Document(s ) AFBCulture. ISOLATE: Normal (applies AFB Culture. [facility] MYCOBACTERIUM to non-numeric Health AVIUM COMPLEX results) System FINAL 08/19/18 Previously released as (1) on 07/15/2018, 02:35 [place] [id number] - (1) - 07/14/18 Culture Positive for AFB CULTURES ARE HELD AND OBSERVED FOR A FULL 8 WEEKS. ISOLATE: MYCOBACTERIUM AVIUM COMPLEXPrevious ly released as (2) on 06/25/2018, 03:00 [place] [id number] - (2) - PLATED DirectMolecula 06/25/18 MTB Normal (applies Direct [facility] rDetection Complex target to non-numeric Molecular Health is not detected results) Detection System FINAL 06/25/18 Previously released as (1) on 06/25/2018, 03:00 [place] [id number] - (1) - PLATED KinyounSmear 06/24/18 NO Normal (applies Kinyoun [facility] ACID FAST to non-numeric Smear Health BACILLI SEEN results) System FINAL 06/24/18M.TUBERC ULOSIS COMPLEX RNA07/14/18 NOT DETECTED FINAL 07/14/18M.AVIUM COMPLEX RNA07/14/18 DETECTED ON PRIMARY CULTURE FINAL 07/14/18 Previously released as (1) on 06/25/2018, 03:00 [place] [id number] - (1) - 06/24/18 NO ACID FAST BACILLI SEEN FINAL 06/24/18 ID Date Data Source [id number] 09/18/2019 11:42:56 PM EST [facility] alth [...] target amplification method ID Date Data Source [id number] 09/18/2019 11:42:56 PM EST [facility] He alth [...] Health results) System ID Date Data Source [id number] 09/18/2019 11:42:56 PM EST [facility] alth [...] Health } System ID Date Data Source [id number] 09/18/2019 11:42:56 PM EST [facility] alth [...] as (1) on 06/25/2018, 03:03 [place] [id number] - (1) - plated ID Date Data Source [id number] 09/18/2019 11:42:56 PM EST [facility] Minimum 3 ml urine Name Value Range Interpretation Description Data Sup porting Code Source(s) Document(s ) S.pneu Not Normal (applies S. pneumonia [facility] moniaA DetectedReference to non-numeric AG, [place] Health G,LA Range: Not results) System DetectedThis test was performed at:[facility] [address] [id number] Performed at:[facility], [address] [place] [address] [id number] Jones M.D., Ph.D. ID Date Data Source [id number] 09/18/2019 11:42:56 PM EST [facility] alth [...] Legionella species or serogroups.This test was performed at:[facility] [address] [id number] Performed at:[facility], [address] [place] [id number] Jones M.D., Ph.D. ID Date Data Source [id number] 09/18/2019 11:42:56 PM EST [facility] Name Value Range Interpretation Description Data Sup porting Code Source(s) Document(s ) AFBCulture. 08/06/18 No Normal (applies AFB Culture. [facility] growth of to non-numeric Health Mycobacteria results) System FINAL 08/06/18 Previously released as (1) on 06/25/2018, 03:[place] [id number] - (1) - PLATED KinyounSmear 06/24/18 NO Normal (applies Kinyoun [facility] ACID FAST to non-numeric Sm[facility] Health BACILLI SEEN results) System FINAL 06/24/18 DirectMolecularD 06/24/18 MTB Normal (applies Direct Damaso [facility] etection Complex to non-numeric Molecular Health target is not results) Detection System detected FINAL 06/24/18 Previously released as (1) on 06/25/2018, 03:01 [place] [id number] - (1) - PLATED ID Date Data Source [id number] 09/18/2019 11:42:56 PM EST [facility] System Name Value Range Interpretation Description Data Sup porting Code Source(s) Document(s ) Lymphocyt Cancelled Lymphocyte %. [facility] e%. SMEAR WAS Health System DAMAGE UNABLE TO PERFORM DIFF Polys Cancelled Polys [facility] Monocyte% Cancelled Monocyte %. [facility] . [facility] System ID Date Data Source [id number] 09/18/2019 11:42:56 PM EST [facility] He alth [...] } results) System ID Date Data Source [id number] 09/18/2019 11:42:56 PM EST [facility] Name Value Range Interpretation Description Data Sup porting Code Source(s) Document(s ) Vancomycin 18.3 Below low normal Vancomycin [facility] [Mass/volume] ug/ml Level, [facility] in Serum or Plasma --peak ID Date Data Source [id number] 09/18/2019 11:42:56 PM EST [facility] He alth [...] 32.0 on 06/24/2018 , 09:11 AM by [id number] - TotalProtein 6.5 mg/dl Normal (applies Total [...] (applies Aspartate [facility] aminotransferase to non-numeric Transaminase, [facility] System [Enzymatic results) Serum activity/volume] in Serum or Plasma by With P-5'-P I.Phosphorus 3.1 mg/dl Normal (applies I. Phosphorus [facility] to non-numeric Health System results) Calcium [Mass/volume] 8.9 mg/dl Normal (applies Calcium, Tot al [facility] in Serum or Plasma to non-numeric Serum Health System results) Alanine 17 {IU/L} Normal (applies Alanine [facility] aminotransferase to non-numeric Aminotransferase [facility] [Enzymatic results) , Serum activity/volume] in [...] as 10.00 on 8, 09:11 AM by [id number] - Glomerular filtration 43.80 Normal (applies to GFR [facility] rate/1.73 sq M.predicted non-numeric results) System [...] urine test abnormalities ID Date Data Source [id number] 09/18/2019 11:42:56 PM EST [facility] He alth [...] in Isolate by Agglutination ColonyCount MODERATE MIXED [place]mer Count [facility] WITH NORMAL Health OROPHARYNGEAL System SARAH XXX PSEUDOMONAS Organism [facility] microorganism AERUGINOSA Health serotype System [Identifier] in Isolate by Agglutination ColonyCount FEW [place] Count [facility] System Amikacin <=16 Sensitive - Amikacin [facility] [Susceptibili Health ty] System Aztreonam <=8 Sensitive - Aztreonam [facility] [Susceptibili Health ty] System -Cefepime <=8 Sensitive - Cefepime [facility] Ciprofloxacin <=1 Sensitive - [facility] [...] [Susceptibili azobactam System ty] Tobramycin <=4 Sensitive [id number] [facility] [Mass/volume] in Health in Serum or System Plasma ID Date Data Source [id number] 09/18/2019 11:42:56 PM EST [facility] System Name Value Range Interpretation Code Description Data Promise rce(s) Supporting Document(s ) Anti-IgG Negative Normal (applies to Anti-IgG [facility] non-numeric Health System results) ID Date Data Source [id number] 09/18/2019 11:42:56 PM EST [facility] He alth [...] Health Fraction System ID Date Data Source [id number] 09/18/2019 11:42:56 PM EST [facility] System Name Value Range Interpretation Description Data Sup porting Code Source(s) Document(s ) Lactate 513 Above high normal Lactate [facility] dehydrogenase {IU/L} Dehydrogenase Health [Enzymatic , Serum System activity/volume] in Serum or Plasma ID Date Data Source [id number] 09/18/2019 11:42:56 PM EST [facility] System Name Value Range Interpretation Description Data Sup porting Code Source(s) Document(s ) Haptoglobin 118 Normal (applies Haptoglobin, [facility] [Mass/volume] mg/dL to non-numeric Serum Health Syst em in Serum or results) Plasma Test Performed at:[facility] [address] Streetayaan Ag M.D. ID Date Data Source [id number] 09/18/2019 11:42:56 PM EST [facility] System Name Value Range Interpretation Description Data Source(s ) Supporting Code Document(s ) Blood,Oc Negative Normal (applies to Blood, Occult [facility] cultFece non-numeric Feces Health System s results) ID Date Data Source [id number] 09/18/2019 11:42:56 PM EST [facility] System Name Value Range Interpretation Description Data Sup porting Code Source(s) Document(s ) Lymphocyt Cancelled Lymphocyte %. [facility] e%. slide was Health System unable to read due damage to smear Polys Cancelled Polys [facility] Monocyte% Cancelled Monocyte %. [facility] . [facility] System ID Date Data Source [id number] 09/18/2019 11:42:56 PM EST [facility] He alth [...] Health } System ID Date Data Source [id number] 09/18/2019 11:42:56 PM EST [facility] System Name Value Range Interpretation Description Data Sup porting Code Source(s) Document(s ) Vancomycin 16.4 Below low normal Vancomycin [facility] [Mass/volume] ug/ml Level, [facility] in Serum or Plasma --peak ID Date Data Source [id number] 09/18/2019 11:42:56 PM EST [facility] He alth [...] urine test abnormalities ID Date Data Source [id number] 09/18/2019 11:42:56 PM [facility] System Name Value Range Interpretation Description Data [...] developed and its performance characteristicsde termined by [employer]. It has not been clearedor approved by the FDA; however, FDA clearance or approval isnot currently requred for clinical use. The results are notintended to be used as the sole means for clinical diagnosisor patient management decisions.[address] [place] [address] [place] [address] ID Date Data Source [id number] 09/18/2019 11:42:56 PM [facility] alth System Name Value Range Interpretation Description Data Sup porting Code Source(s) Document(s ) Human NONREACTIVE Normal (applies HIV test, [facility] immunodeficien Normal Range: to non-numeric Routine Health cy virus Non results) (antigen and System antibody titer ReactiveNegativ antibody measurement e for HIV-1 testing) (procedure) antigen and HIV-1/HIV-2 antibodies. No laboratory evidence of HIV infection.Test was performed at [address] ID Date Data Source [id number] 09/18/2019 11:42:56 PM EST [facility] alth System Name Value Range Interpretation Description Data Sup porting Code Source(s) Document(s ) Type B Normal (applies Type [facility] to non-numeric Health results) System D Ab [Titer] in Positive Normal (applies Rh [facility] Serum or Plasma to non-numeric Health results) System AntibodyScreen Negative Normal (applies Antibody [facility] to non-numeric Screen Health results) System ID Date Data Source [id number] 09/18/2019 11:42:56 PM EST [facility] He alth [...] Health } System ID Date Data Source [id number] 09/18/2019 11:42:56 PM EST [facility] He alth [...] urine test abnormalities ID Date Data Source [id number] 09/18/2019 11:42:56 PM EST [facility] He louann [...] Health } System ID Date Data Source [id number] 09/18/2019 11:42:56 PM EST [facility] He alth [...] urine test abnormalities ID Date Data Source [id number] 09/18/2019 11:42:56 PM EST [facility] He louann [...] Health } System ID Date Data Source [id number] 09/18/2019 11:42:56 PM EST [facility] He alth [...] urine test abnormalities ID Date Data Source [id number] 09/18/2019 11:42:56 PM EST [facility] He alth [...] Health } System ID Date Data Source [id number] 09/18/2019 11:42:56 PM EST [facility] He alth [...] urine test abnormalities ID Date Data Source [id number] 09/18/2019 11:42:56 PM EST [facility] System Name Value Range Interpretation Description Data Source(s ) Supporting Code Document(s ) PH* 7.438 Above high normal PH* [facility] {pH_units} [facility] System PCO2* 60.8 Above high normal PCO2* [facility] {mm_Hg} [facility] System BaseExces 16.90 Above high normal Base Excess* [facility] e s* {mEq/L} [facility] System HCO3* 41.1 Above high normal HCO3* [facility] mmol/L [facility] System Chloride, 94 mmol/L Below low normal Chloride, [facility] System Lactate. 1.8 mmol/L Normal (applies to Lactate. [facility] non-numeric [facility] System results) Glucose,V 49 mg/dL Below lower panic Glucose, VB [facility] System notified Jane Hernandez Reporting|Telep macho|jane Castañeda| 12/08/2018 at 7:51 PMCalled to:jane Martinez Name:Yajaira by:jane Castañeda 12/08/2018 / 7:50 PMResult Reporting|Telephone|Jane Morales| 12/08/2018 at 8:08 PMCalled to:Jane Berrios Name:Yajaira by:Jane Morales 12/08/2018 / 8:08 PM Potassium,VB 2.4 mmol/L Below lower panic Potassium, VB [facility] System Result Reporting|Telephone|jane Castañeda| at 7:51 PMCalled to:jane Martinez Name:Yajaira by:jane Castañeda 12/08/2018 / 7:50 PM Sodium,VB 148 mmol/L Above high Sodium, VB [facility] System IonizedCalcium,VB 1.36 mmol/L Above high Ionized Calcium, [facility] normal VB System [id number]* 36.20 % Normal (applies O2 Saturation* [facility] to non-numeric System results) ID Date Data Source [id number] 09/18/2019 11:42:56 PM EST [facility] He alth [...] Health results) System ID Date Data Source [id number] 09/18/2019 11:42:56 PM EST [facility] System Name Value Range Interpretation Description Data Source(s ) Supporting Code Document(s ) B-TypeNa 138.0 Above high normal B-Type [facility] triuetic pg/mL [facility] Peptide- Peptide - MV MVOnly Only ID Date Data Source [id number] 09/18/2019 11:42:56 PM EST [facility] He alth [...] Health } System ID Date Data Source [id number] 09/18/2019 11:42:56 PM EST [facility] System Name Value Range Interpretation Description Data Sup porting Code Source(s) Document(s ) Thyrotropin 0.554 Normal (applies Thyroid [facility] [Mass/volume] {mIU/mL} to non-numeric Stimulating Health Sy stem in Serum or results) Hormone, Serum Plasma ID Date Data Source [id number] 09/18/2019 11:42:56 PM EST [facility] System Name Value Range Interpretation Description Data Sup porting Code Source(s) Document(s ) Creatine 46 {IU/L} Normal (applies Creatine [facility] kinase.MB to non-numeric Kinase, Serum Health Syst em [Mass/volume results) ] in Serum or Plasma ID Date Data Source [id number] 09/18/2019 11:42:56 PM EST [facility] System Name Value Range Interpretation Description Data Source(s ) Supporting Code Document(s ) Lipase 208 U/L Above high normal Lipase, Serum [facility] [Enzymatic Health System activity/v olume] in Serum or Plasma ID Date Data Source [id number] 09/18/2019 11:42:56 PM EST [facility] He alth [...] [facility] isoenzymes [Enzymatic (applies to Phosphatase, [facility] System activity/volume] in non-numeric Serum Serum or Plasma by Heat results) stability Bilirubin direct and 0.7 mg/dl Normal Bilirubin, Serum [facility] total panel (applies to Total Health System [Mass/volume] - Serum non-numeric or Plasma results) DirectBilirubin 0.3 mg/dl Normal Direct Bilirubin [facility] (applies to Health System non-numeric results) Aspartate 24 {IU/L} Normal Aspartate [facility] aminotransferase (applies to Transaminase, [facility] [Enzymatic non-numeric Serum activity/volume] in results) Serum or Plasma by With P-5'-P Albumin [Mass/volume] 3.3 {gm/dl} Below low Albumin, Serum [facility] in Serum or Plasma normal Health Syst em I.Phosphorus 3.0 mg/dl Normal I. Phosphorus [facility] (applies to Health System non-numeric results) Alanine 41 {IU/L} Normal Alanine [facility] aminotransferase (applies to Aminotransferase, [facility] [Enzymatic non-numeric Serum activity/volume] in [...] urine test abnormalities ID Date Data Source [id number] 09/18/2019 11:42:56 PM EST [facility] alth System Name Value Range Interpretation Description Data Source(s ) Supporting Code Document(s ) Troponin 0.46 Above high normal Troponin I [facility] IQuantit ng/mL [facility] ative- MV Only Only The Troponin I result is consistent with Severe Cardiac Ischemia. ID Date Data Source [id number] 09/18/2019 11:42:56 PM EST [facility] Name Value Range Interpretation Description Data Sup porting Code Source(s) Document(s ) Prothrombintim 10.70 Normal (applies Prothrombin [facility] e(PT) {seconds to non-numeric time (PT) Health System } results) INR in Blood 1.02 Normal (applies INR Result [facility] by Coagulation {Ratio} to non-numeric Health Sys tem assay results) Normal = 0.7-1.1Therapeutic = 2.0-3.0Mec hanical Heart = 3.0-4.5 ID Date Data Source [id number] 09/18/2019 11:42:56 PM EST [facility] alth System Name Value Range Interpretation Description Data Sup porting Code Source(s) Document(s ) Color YELLOW Normal (applies Color [facility] to non-numeric Health results) System Appearance of CLEAR Normal (applies Urine [facility] Urine to non-numeric Appearance Health results) System Specific gravity 1.010 Normal (applies Urine Specific [facility] of Urine to non-numeric [facility] results) System pH.. 6.0 Normal (applies [...] Health results) System ID Date Data Source [id number] 09/18/2019 11:42:56 PM EST [facility] Name Value Range Interpretation Description Data Sup porting Code Source(s) Document(s ) Magnesium 2.5 Above high normal Magnesium, [facility] [Mass/volume] {mEq/L} Serum Health System in Serum or Plasma ID Date Data Source [id number] 09/18/2019 11:42:56 PM EST [facility] System Name Value Range Interpretation Description Data Source(s ) Supporting Code Document(s ) Troponin 0.72 Above high normal Troponin I [facility] IQuantit ng/mL Quantitative - Health System ative-MV MV Only Only The Troponin I result is consistent with Severe Cardiac Ischemia. ID Date Data Source [id number] 09/18/2019 11:42:56 PM EST [facility] He alth [...] Health } System ID Date Data Source [id number] 09/18/2019 11:42:56 PM EST [facility] System Name Value Range Interpretation Description Data Sup porting Code Source(s) Document(s ) Creatine 42 {IU/L} Normal (applies Creatine [facility] kinase.MB to non-numeric Kinase, Serum Health Syst em [Mass/volume results) ] in Serum or Plasma ID Date Data Source [id number] 09/18/2019 11:42:56 PM EST [facility] alth [...] Antibiotics strongly encouraged ID Date Data Source [id number] 09/18/2019 11:42:56 PM EST [facility] System Name Value Range Interpretation Description Data Sup porting Code Source(s) Document(s ) Magnesium 1.8 Normal (applies Magnesium, [facility] [Mass/volume] {mEq/L} to non-numeric Serum Health Syst em in Serum or results) Plasma ID Date Data Source [id number] 09/18/2019 11:42:56 PM EST [facility] He alth [...] urine test abnormalities ID Date Data Source [id number] 09/18/2019 11:42:56 PM EST [facility] System Name Value Range Interpretation Description Data Source(s ) Supporting Code Document(s ) Troponin 0.50 Above high normal Troponin I [facility] IQuantit ng/mL Quantitative - Health System ative-MV MV Only Only The Troponin I result is consistent with Severe Cardiac Ischemia. ID Date Data Source [id number] 09/18/2019 11:42:56 PM EST [facility] al[facility] System Minimum 3 ml urine Name Value Range Interpretation Description Data Sup porting Code Source(s) Document(s ) S.pneu Not Normal (applies S. pneumonia [facility] moniaA DetectedReference to non-numeric AG, [place] [facility] G,[place] Range: Not results) System DetectedThis test was performed at:[employer] [address] [id number] Performed at:[employer] [address] [id number] Jones M.D., Ph.D. ID Date Data Source [id number] 09/18/2019 11:42:56 PM EST [facility] He alth [...] Legionella species or serogroups.This test was performed at:[employer] [address] [id number] Performed at:[employer] [facility], [address] [place] [id number] Jones M.D., Ph.D. ID Date Data Source [id number] 09/18/2019 11:42:56 PM EST [facility] He alth [...] Health } System ID Date Data Source [id number] 09/18/2019 11:42:56 PM EST [facility] He alth [...] urine test abnormalities ID Date Data Source [id number] 09/18/2019 11:42:56 PM EST [facility] System Name Value Range Interpretation Description Data Source(s ) Supporting Code Document(s ) Troponin 0.69 Above high normal Troponin I [facility] IQuantit ng/mL [facility] ative-MV MV Only Only The Troponin I result is consistent with Severe Cardiac Ischemia. ID Date Data Source [id number] 09/18/2019 11:42:56 PM EST [facility] He alth [...] target amplification method ID Date Data Source [id number] 09/18/2019 11:42:56 PM EST [facility] System Name Value Range Interpretation Description Data Sup porting Code Source(s) Document(s ) Bacteria NO GROWTH Culture [facility] identified in Bacteria Blood Health Syst em Blood by Aerobe culture ID Date Data Source [id number] 09/18/2019 11:42:56 PM EST [facility] System Name Value Range Interpretation Description Data Sup porting Code Source(s) Document(s ) Bacteria NO GROWTH Culture [facility] identified in Bacteria Blood Health Syst em Blood by [facility] culture ID Date Data Source [id number] 09/18/2019 11:42:56 PM EST [facility] He alth [...] Health } System ID Date Data Source [id number] 09/18/2019 11:42:56 PM EST [facility] He alth [...] urine test abnormalities ID Date Data Source [id number] 09/18/2019 11:42:56 PM EST [facility] He alth [...] Health } System ID Date Data Source [id number] 09/18/2019 11:42:56 PM EST [facility] He alth [...] urine test abnormalities ID Date Data Source [id number] 09/18/2019 11:42:56 PM EST [facility] System Name Value Range Interpretation Description Data Sup porting Code Source(s) Document(s ) aPTT in Blood 30.1 Normal (applies Activated [facility] by Coagulation {Seconds to non-numeric Partial Health assay } results) Thromboplastin System Time ID Date Data Source [id number] 09/18/2019 11:42:56 PM EST [facility] He alth [...] Heart = 3.0-4.5 ID Date Data Source [id number] 09/18/2019 06:05:00 PM [facility] PROCEDURE INFORMATION: Exam: CT Head Wit hout Contrast Exam date and time: 09/18/2019 6:14 PM Age: 74 years old Clinical indic ation: Visit reason: Headache; TECHNIQUE: Imaging protocol: Computed tomography of the head without contrast. Radiation optimization: All CT scans at [facility] use at least one of thesedose optimization [...] high normal 154 mm[Hg] [facility] pressure [facility] Oxygen saturation 97 % 0 - 999 Normal (applies to 97 % [facility] in Arterial blood non-numeric results) Health System by Pulse oximetry Respiratory rate 17 0 - 999 Normal (applies to 17 [facility] non-numeric results) [facility] Heart rate 62 0 - 999 Normal (applies to 62 [facility] non-numeric results) [facility] Body surface area 1.4 m2 1.4 m2 [facility] Derived from Health Syste m formula Body mass index 19.8 kg/m2 19.8 kg/m2 [facility] (BMI) [Ratio] Health Syst em Body weight 47.62 kg 47.62 kg [facility] Body height 154.94 cm 154.94 cm [facility] Body temperature 98 [degF] 0 - 200 Normal (applies to 98 [degF] [facility] non-numeric results) [facility] Body temperature 36.6 Amber 0 - 99.9 Normal (applies to 36.6 Amber [facility] non-numeric results) [facility]
[2020-06-29] MEDS ORDERED: LABETALOL HCL 5 MG/1 ML (100MG/20 ML VIAL) IVPUSH ONE (08:28)
[2020-06-29] MEDS ORDERED: LABETALOL HCL 5 MG/1 ML (200MG/40ML VIAL) IVPB ONE (09:03)
[2020-06-29] MEDS: SODIUM CHLORIDE 0.45% 1,000 ML IV SCH (09:12)
--- NOTE | 2020-06-29 09:17 | HP ---
CHIEF COMPLAINT: abdominal pain, hematochezia PCP: HISTORY OF PRESENT ILLNESS: Patient is a 74 year old female with history of hypertension, hyperlipidemia, Afib (on Eliquis), asthma, presents with complaint of hematochezia, and left lower quadrant abdominal pain. Endorses symptoms began yesterday afternoon with sudden onset. Describes sharp, non radiating abdominal pain that was temporarily improved after passing bowel movement. She endorses three episodes of loosely formed bowel movements that were streaked with blood. She believes one bowel movement have been melenic, however she does endorse taking Iron supplements. Patient last attempted to drink chicken soup, and mint/ maren tea which she tolerated, however does endorse one episode of clear vomits after taking Letty- Piseco yesterday. She denies subjective fevers, chills, shortness of breath, chest pain, or palpitations. Patient endorses prior colonoscopy more than 10 years ago, which she reports was unremarkable. ER course was notable for: (1) CT abdomen, pelvis (2) (3) Recent Travel: denies PAST MEDICAL HISTORY:hypertension, hyperlipidemia, Afib, asthma PAST SURGICAL HISTORY: denies FAMILY HISTORY: Father; passed due to a bleeding ulcer Mother: hypertension Social History: Lives alone. Independent in activates daily living Smoking: denies smoking cigarettes Alcohol: denies drinking alcohol Drugs: denies illicit drug use Allergies melon Allergy (Verified 06/29/20 06:50) strawberry Allergy (Verified 06/29/20 06:50) lactose Adverse Reaction (Verified 06/29/20 06:50) HOME MEDICATIONS: Home Medications Medication Instructions Recorded Brimonidine Tartrate [Alphagan 1 drop OU BID 06/02/18 0.15% -] Ferrous Sulfate [Feosol] 325 mg PO BID 07/15/18 Albuterol Sulfate [Proair Hfa] 8.5 gm IH DAILY 07/21/18 Apixaban [Eliquis] 5 mg PO BID 07/21/18 Atorvastatin Ca [Lipitor] 20 mg PO DAILY 11/04/18 Cholecalciferol (Vitamin D3) 1 tab PO DAILY 11/05/18 [Vitamin D3] Folic Acid 1 mg PO DAILY 11/05/18 Nifedipine [Procardia Xl] 60 mg PO DAILY 06/29/20 Olmesartan Medoxomil [Benicar -] 40 mg PO DAILY 06/29/20 Spironolactone [Aldactone] 25 mg PO DAILY 06/29/20 REVIEW OF SYSTEMS CONSTITUTIONAL: Absent: fever, chills, diaphoresis, generalized weakness, malaise, loss of appetite, weight change HEENT: Absent: rhinorrhea, nasal congestion, throat pain, throat swelling, difficulty swallowing, mouth swelling, ear pain, eye pain, visual changes CARDIOVASCULAR: Absent: chest pain, syncope, palpitations, irregular heart rate, lightheadedness, peripheral edema RESPIRATORY: Absent: cough, shortness of breath, dyspnea with exertion, orthopnea, wheezing, stridor, hemoptysis GASTROINTESTINAL: Admits: abdominal pain, nausea, vomiting, diarrhea, melena, hematochezia. Absent: abdominal distension, constipation, GENITOURINARY: Absent: dysuria, frequency, urgency, hesitancy, hematuria, flank pain, genital pain MUSCULOSKELETAL: Absent: myalgia, arthralgia, joint swelling, back pain, neck pain SKIN: Absent: rash, itching, pallor HEMATOLOGIC/IMMUNOLOGIC: Absent: easy bleeding, easy bruising, lymphadenopathy, frequent infections ENDOCRINE: Absent: unexplained weight gain, unexplained weight loss, heat intolerance, cold intolerance NEUROLOGIC: Absent: headache, focal weakness or paresthesias, dizziness, unsteady gait, seizure, mental status changes, bladder or bowel incontinence PSYCHIATRIC: Absent: anxiety, depression, suicidal or homicidal ideation, hallucinations. PHYSICAL EXAMINATION Vital Signs - 24 hr 06/29/20 06/29/20 06/29/20 01:43 06:42 08:12 Temperature 98.9 F 98.5 F Pulse Rate 67 Pulse Rate [ 73 71 Right Radial] Respiratory 18 16 Rate Blood Pressure 187/75 H Blood Pressure 183/71 H 221/89 H [Right Arm] O2 Sat by Pulse 100 100 99 Oximetry (%) GENERAL: The patient is awake, alert, and fully oriented, in no acute distress. HEAD: Normocephalic, atraumatic. EYES: PERRL, extraocular movements intact, sclera anicteric, conjunctiva clear. ENT: Oropharynx clear, without erythema or exudates. Moist mucous membranes. NECK: Trachea midline, full range of motion. Supple without lymphadenopathy. LUNGS: Breath sounds equal, clear to auscultation bilaterally. No wheezes, no crackles. No accessory muscle use. HEART: Regular rate and rhythm. S1, S2 without murmur, rub or gallop. ABDOMEN: Soft, nondistended. Diffusely tender to deep palpation, worst at left lower abdominal quadrant. No rebound tenderness, no guarding. Normoactive bowel sounds x4 quadrants. No hepatosplenomegaly, no masses appreciated. RECTAL: Good anal sphincter tone. Negative external hemorrhoids appreciated. Rectal vault without stool. Negative cayetano blood or melena upon gloved finger. EXTREMITIES: 2+ radial, dorsalis pedis pulses bilaterally. Warm, well-perfused. No lower extremity edema bilaterally. NEUROLOGICAL: Cranial nerves II through XII grossly intact. Normal speech. No gross focal deficits. PSYCH: Normal mood, normal affect upon my encounter. SKIN: Warm, dry. Laboratory Results - last 24 hr 06/29/20 06/29/20 06/29/20 03:00 03:00 03:00 WBC RBC Hgb Hct MCV MCH MCHC RDW Plt Count MPV Absolute Neuts (auto) Neutrophils % Lymphocytes % Monocytes % Eosinophils % Basophils % Nucleated RBC % PT with INR 13.00 INR 1.10 H PTT (Actin FS) 36.5 Sodium Potassium Chloride Carbon Dioxide Anion Gap BUN Creatinine Est GFR (CKD-EPI)AfAm Est GFR (CKD-EPI)NonAf Random Glucose Lactic Acid Calcium Total Bilirubin AST ALT Alkaline Phosphatase Creatine Kinase Creatine Kinase Index CK-MB (CK-2) Troponin I Total Protein Albumin Urine Color Yellow Urine Appearance Clear Urine pH 5.0 D Ur Specific [place] 1.014 Urine Protein 2+ H Urine Glucose (UA) Negative Urine Ketones Negative Urine Blood 2+ H Urine Nitrite Negative Urine Bilirubin Negative Urine Urobilinogen 0.2 Ur Leukocyte Esterase Trace Urine WBC (Auto) 28 Urine RBC (Auto) 114 Urine Casts (Auto) 6 U Epithel Cells (Auto) 22 Urine Bacteria (Auto) 21 Stool Occult Blood Positive Anti-A Titer Blood Type Antibody Screen 06/29/20 06/29/20 06/29/20 03:00 03:00 03:00 WBC RBC Hgb Hct MCV MCH MCHC RDW Plt Count MPV Absolute Neuts (auto) Neutrophils % Lymphocytes % Monocytes % Eosinophils % Basophils % Nucleated RBC % PT with INR INR PTT (Actin FS) Sodium 132 L Potassium > 10.0 H* Chloride 104 Carbon Dioxide 26 Anion Gap 2 L BUN 29.1 H Creatinine 1.4 H Est GFR (CKD-EPI)AfAm 42.19 Est GFR (CKD-EPI)NonAf 36.41 Random Glucose 103 Lactic Acid 1.2 Calcium 9.1 Total Bilirubin 0.6 AST 90 H ALT 27 Alkaline Phosphatase 146 H Creatine Kinase 416 H Creatine Kinase Index 0.6 CK-MB (CK-2) 2.5 Troponin I < 0.02 Total Protein 9.0 H Albumin 3.3 L Urine Color Urine Appearance Urine pH Ur Specific [place] Urine Protein Urine Glucose (UA) Urine Ketones Urine Blood Urine Nitrite Urine Bilirubin Urine Urobilinogen Ur Leukocyte Esterase Urine WBC (Auto) Urine RBC (Auto) Urine Casts (Auto) U Epithel Cells (Auto) Urine Bacteria (Auto) Stool Occult Blood Anti-A Titer Cancelled Blood Type Cancelled Antibody Screen Cancelled 06/29/20 06/29/20 03:32 05:33 WBC 9.1 RBC 3.66 Hgb 11.9 Hct 35.9 MCV 98.2 H MCH 32.5 MCHC 33.1 RDW 13.2 Plt Count 223 D MPV 9.4 D Absolute Neuts (auto) 7.5 Neutrophils % 82.7 Lymphocytes % 10.4 D Monocytes % 6.0 D Eosinophils % 0.4 D Basophils % 0.5 Nucleated RBC % 0 PT with INR INR PTT (Actin FS) Sodium 142 Potassium 4.3 Chloride 109 H Carbon Dioxide 28 Anion Gap 6 L BUN 25.2 H Creatinine 1.3 Est GFR (CKD-EPI)AfAm 46.15 Est GFR (CKD-EPI)NonAf 39.82 Random Glucose 98 Lactic Acid Calcium 9.0 Total Bilirubin 0.6 AST 20 ALT 20 Alkaline Phosphatase 138 H Creatine Kinase Creatine Kinase Index CK-MB (CK-2) Troponin I Total Protein 7.7 Albumin 3.3 L Urine Color Urine Appearance Urine pH Ur Specific [place] Urine Protein Urine Glucose (UA) Urine Ketones Urine Blood Urine Nitrite Urine Bilirubin Urine Urobilinogen Ur Leukocyte Esterase Urine WBC (Auto) Urine RBC (Auto) Urine Casts (Auto) U Epithel Cells (Auto) Urine Bacteria (Auto) Stool Occult Blood Anti-A Titer Blood Type Antibody Screen ASSESSMENT/PLAN: Patient is a 74 year old female with history of hypertension, hyperlipidemia, Afib (on Eliquis), asthma, presents with complaint of hematochezia, and left lower quadrant abdominal pain. Colitis -Extensive colitis noted on CT abdomen, pelvis -Maintain NPO, except medications with small sips of water -IV normal saline at 75mL/ hour -Patient was treated with Levofloxacin, Metronidazole in ED. Will continue Zosyn -Gastroeneterolgy consult (Dr. Aj) -General surgery consult (Dr. Nicole) History of Afib -Currently rate controlled -Holding Eliquis in setting of hematochezia, and in anticipation of general surgery evaluation History of hypertension -Continue home Nifedipine, Olmesartan History of hyperlipidemia -Continue home Atorvastatin History of Diabetes Mellitus (non insulin dependent) -States she had history of DM when she was taking steroids, however currently endorses she is not taking any oral hypoglycemics or insulin. -Obtain HGbA1c -Fingerstick blood glucose monitoring, and insulin sliding scale (adjusted given patient currently NPO) FEN -IV normal saline at 75mL/ hour -Follow BMP -NPO Prophylaxis -SCDs bilateral lower extremities Disposition -Admit to medical surgical floor. Family Medical History Family History: As Documented Visit type - Medication Review Med list reviewed for High Risk Meds patients 65 and older: Yes - Emergency Visit Emergency Visit: Yes ED Registration Date: 06/29/20 Care time: The patient presented to the Emergency Department on the above date and was hospitalized for further evaluation of their emergent condition. - New Patient This patient is new to me today: Yes Date on this admission: 06/29/20 - Critical Care Critical Care patient: No ATTENDING PHYSICIAN STATEMENT I saw and evaluated the patient. I reviewed the resident's note and discussed the case with the resident. I agree with the resident's findings and plan as documented. SUBJECTIVE: OBJECTIVE: ASSESSMENT AND PLAN:
--- NOTE | 2020-06-29 09:49 | EKG ---
Test Reason : Blood Pressure : / mmHG Vent. Rate : 059 BPM Atrial Rate : 059 BPM P-R Int : 188 ms QRS Dur : 104 ms QT Int : 448 ms P-R-T Axes : 072 041 064 degrees QTc Int : 443 ms SINUS BRADYCARDIA WITH SINUS ARRHYTHMIA NONSPECIFIC T WAVE ABNORMALITY ABNORMAL ECG WHEN COMPARED WITH ECG OF 02-NOV-2018 09:28, PREMATURE ATRIAL COMPLEXES ARE NO LONGER PRESENT VENT. RATE HAS DECREASED BY 63 BPM QRS DURATION HAS INCREASED ST NO LONGER DEPRESSED IN LATERAL LEADS T WAVE INVERSION NO LONGER EVIDENT IN ANTERIOR LEADS NONSPECIFIC T WAVE ABNORMALITY NOW EVIDENT IN LATERAL LEADS Confirmed by MD Otis, Javier ([id number]) on 06/29/2020 9:48:32 AM Referred By: Confirmed By:Javier Berg MD
[2020-06-29] MEDS ORDERED: PATIENT'S OWN MEDICATION (NON-FORMULARY) (Nifedipine [Procardia Xl] 60 MG) PO SCH (10:00)
[2020-06-29] MEDS ORDERED: NIFEdipine E.R. 30 MG TABLET ONE ×2 (10:11→14:17)
[2020-06-29] MEDS ORDERED: LOSARTAN POTASSIUM 50 MG TABLET PO SCH (11:00)
[2020-06-29] MEDS: INSULIN SLIDING SCALE (NOVOLOG) 1 VIAL SQ SCH ×2 (11:04→17:20)
[2020-06-29] MEDS ORDERED: LOSARTAN POTASSIUM 50 MG TABLET ONE (12:07)
[2020-06-29] MEDS: LOSARTAN POTASSIUM 50 MG TABLET PO SCH (12:23)
[2020-06-29] MEDS: NIFEdipine E.R 60 MG TABLET PO SCH (13:47)
[2020-06-29] MEDS ORDERED: PIPERACILLIN/TAZOB 3.375 GM 3.375 GM in DEXTROSE 5%-WATER - 50 ML IVPB ONE (14:00)
[2020-06-29] MEDS ORDERED: PIPERACILLIN/TAZOB 3.375 GM 3.375 GM/50 ML BAG IVPB ONE (15:19)
--- NOTE | 2020-06-29 17:00 | PN ---
Progress Note (short form) - Note Progress Note: GI CONSULT DICTATED - STOOL CULTURE / C.DIFF PCR - C/W LEVAQUIN / FLAGYL - CLEAR LIQUID DIET
--- NOTE | 2020-06-29 17:24 | CONS ---
DATE OF CONSULTATION: DATE OF DICTATION: 06/29/2020 GASTROINTESTINAL CONSULTATION HISTORY OF PRESENT ILLNESS: The patient is a 74-year-old female with a past medical history of hypertension, hyperlipidemia, atrial fibrillation on Eliquis, asthma, who is admitted to the hospital with complaints of a couple of days of left lower quadrant abdominal pain, diarrhea, chillc, with associated hematochezia. She stated she has not had any further episodes today. She has never had similar symptoms in the past. She denies antibiotic use at home, hematemesis, melena. She denies sick contacts or antibiotic use while at home. She ate homemade chicken soup prior to this occurring. She had a colonoscopy over 10 years ago, does not recall the results and did not result the doctor's name. PAST MEDICAL AND SURGICAL HISTORY: As listed in the history of present illness with also history of FL for which she was hospitalized last year. SOCIAL HISTORY: Does not drink, smoke, or use drugs. ALLERGIES: MELON and STRAWBERRY and LACTOSE INTOLERANCE. REVIEW OF SYSTEMS: As per the HPI. HOME MEDICATIONS: Include: 1. Iron. 2. Eliquis. 3. Lipitor. 4. Vitamin D. 5. Nifedipine. 6. Benicar. 7. Aldactone. PHYSICAL EXAMINATION: Vital Signs: Temperature 98, pulse 57, blood pressure 130/90, pulse oximetry 99% on room air, respiratory rate 16. General: In no acute distress. HEENT: Anicteric sclerae. Cardiovascular: S1, S2, regular rate and rhythm. Lungs: Bilaterally clear to auscultation. Abdomen: Tender in the left lower quadrant without rebound or guarding. Extremities: No edema. LABORATORY: White blood cell count 9.1, hemoglobin and hematocrit 11.9 over 35, platelet count 223, INR 1.1. Sodium 142, potassium 4.3, BUN over creatinine 125 over 1.3, glucose 98, AST 20, ALT 20, alkaline phosphatase 138. Urine 2+ blood. Stool for occult blood was positive. Abdomen and pelvic CT scan was performed and revealed with contrast, diffuse gastric wall thickening may be related to gastritis, marked thickening, and irregular mid transverse proximal descending colon consistent with extensive colitis. No evidence of diverticulitis or abscess. IMPRESSION: Colitis, likely infectious in etiology. RECOMMENDATION: Stool, C. difficile, PCR, ova parasites, leukocytes. She can be advanced to a clear liquid diet as tolerated. Continue her on Levaquin and Flagyl therapy. She will need a colonoscopy however once the acute process has resolved, will follow. DO JAD LEDEZMA/[id number] MTDD
--- NOTE | 2020-06-29 17:38 | PN ---
Teaching Attending Note Name of Resident: Vicente Cui ATTENDING PHYSICIAN STATEMENT I saw and evaluated the patient. I reviewed the resident's note and discussed the case with the resident. I agree with the resident's findings and plan as documented. SUBJECTIVE: Patient seen and examined at bedside, endorses streaks of blood in stool, denies pain wants to eat, VSS. OBJECTIVE: GA comfortable, AAOx3 HEENT NC/aT, EOMI, dry MM Chest CTAB CVS S1, s2+, RRR Abd lower abdominal pain, no guarding, BS+ Ext no LE edema Vital Signs (72 hours) 06/29/20 06/29/20 06/29/20 01:43 06:42 08:12 Temperature 98.9 F 98.5 F Pulse Rate 67 Pulse Rate [ 73 71 Right Radial] Respiratory 18 16 Rate Blood Pressure 187/75 H Blood Pressure 183/71 H 221/89 H [Right Arm] O2 Sat by Pulse 100 100 99 Oximetry (%) 06/29/20 06/29/20 06/29/20 10:34 12:35 13:35 Temperature 98.5 F Pulse Rate Pulse Rate [ 62 69 Right Radial] Respiratory 18 18 18 Rate Blood Pressure Blood Pressure 175/76 H 178/78 H 102/59 L [Right Arm] O2 Sat by Pulse 97 96 99 Oximetry (%) 06/29/20 06/29/20 06/29/20 14:04 15:30 18:00 Temperature 98.6 F Pulse Rate Pulse Rate [ 59 L 57 L 74 Right Radial] Respiratory 16 16 Rate Blood Pressure Blood Pressure 190/76 H 130/90 134/88 [Right Arm] O2 Sat by Pulse 99 99 Oximetry (%) 06/29/20 06/30/20 06/30/20 23:51 00:00 02:10 Temperature 98.0 F Pulse Rate 68 Pulse Rate [ Right Radial] Respiratory 18 18 18 Rate Blood Pressure 170/69 Blood Pressure [Right Arm] O2 Sat by Pulse 100 100 100 Oximetry (%) 06/30/20 06/30/20 06/30/20 02:18 04:00 04:03 Temperature 98.5 F Pulse Rate 71 Pulse Rate [ Right Radial] Respiratory 18 20 20 Rate Blood Pressure 185/86 H Blood Pressure [Right Arm] O2 Sat by Pulse 100 98 98 Oximetry (%) 06/30/20 06/30/20 06/30/20 05:49 09:00 14:53 Temperature 99.4 F 99.1 F 98.6 F Pulse Rate 57 L 58 L 59 L Pulse Rate [ Right Radial] Respiratory 20 20 20 Rate Blood Pressure 138/58 L 140/65 124/55 L Blood Pressure [Right Arm] O2 Sat by Pulse 99 100 96 Oximetry (%) Microbiology 06/29/20 03:00 Urine - Urine Clean Catch Urine Culture - Final Proteus Species Laboratory Results - last 24 hr 06/29/20 06/29/20 06/30/20 16:30 17:00 04:00 WBC 11.8 H RBC 3.63 Hgb 11.8 Hct 35.4 MCV 97.6 H MCH 32.4 MCHC 33.2 RDW 13.1 Plt Count 214 MPV 8.9 Sodium Potassium Chloride Carbon Dioxide Anion Gap BUN Creatinine Est GFR (CKD-EPI)AfAm Est GFR (CKD-EPI)NonAf POC Glucometer 62 Random Glucose Hemoglobin A1c % Calcium Phosphorus Magnesium Total Bilirubin AST ALT Alkaline Phosphatase Total Protein Albumin COVID-19 (EMMETT) Not detected 06/30/20 06/30/20 06/30/20 04:00 04:00 04:29 WBC RBC Hgb Hct MCV MCH MCHC RDW Plt Count MPV Sodium 140 Potassium 4.0 Chloride 107 Carbon Dioxide 26 Anion Gap 7 L BUN 14.0 Creatinine 1.1 Est GFR (CKD-EPI)AfAm 56.48 Est GFR (CKD-EPI)NonAf 48.73 POC Glucometer 90 Random Glucose 83 Hemoglobin A1c % 5.7 Calcium 9.4 Phosphorus 3.5 Magnesium 1.9 Total Bilirubin 0.8 AST 24 ALT 21 Alkaline Phosphatase 137 H Total Protein 7.8 Albumin 3.4 COVID-19 (EMMETT) 06/30/20 11:30 WBC RBC Hgb Hct MCV MCH MCHC RDW Plt Count MPV Sodium Potassium Chloride Carbon Dioxide Anion Gap BUN Creatinine Est GFR (CKD-EPI)AfAm Est GFR (CKD-EPI)NonAf POC Glucometer 104 Random Glucose Hemoglobin A1c % Calcium Phosphorus Magnesium Total Bilirubin AST ALT Alkaline Phosphatase Total Protein Albumin COVID-19 (EMMETT) Home Medications Medication Instructions Recorded Brimonidine Tartrate [Alphagan 1 drop OU BID 06/02/18 0.15% -] Ferrous Sulfate [Feosol] 325 mg PO BID 07/15/18 Albuterol Sulfate [Proair Hfa] 8.5 gm IH DAILY 07/21/18 Apixaban [Eliquis] 5 mg PO BID 07/21/18 Atorvastatin Ca [Lipitor] 20 mg PO DAILY 11/04/18 Cholecalciferol (Vitamin D3) 1 tab PO DAILY 11/05/18 [Vitamin D3] Folic Acid 1 mg PO DAILY 11/05/18 Nifedipine [Procardia Xl] 60 mg PO DAILY 06/29/20 Olmesartan Medoxomil [Benicar -] 40 mg PO DAILY 06/29/20 Spironolactone [Aldactone] 25 mg PO DAILY 06/29/20 Current Medications Generic Name Dose Route Start Last Admin Trade Name Freq PRN Reason Stop Dose Admin Atorvastatin Calcium 20 mg 06/30/20 22:00 Lipitor - PO HS ANITA Folic Acid 1 mg 06/30/20 13:45 06/30/20 14:34 Folic Acid - PO 1 mg DAILY ANITA Administration Piperacillin Sod/Tazobactam 50 mls @ 100 mls/hr 06/29/20 14:00 Sod 3.375 gm/ Dextrose IVPB Q8H-IV ANITA Protocol Metronidazole 500 mg in 100 mls @ 100 mls/hr 06/30/20 12:45 06/30/20 14:34 Flagyl 500mg Premixed Ivpb - IVPB 100 mls/hr Q8H-IV ANITA Administration Insulin Aspart 1 vial 06/29/20 11:00 06/30/20 11:36 Novolog Vial Sliding Scale - SQ Not Given TIDAC ANITA Protocol Losartan Potassium 100 mg 06/29/20 12:15 06/30/20 09:00 Cozaar - PO 100 mg DAILY ANITA Administration Nifedipine 60 mg 06/29/20 11:00 06/30/20 09:00 Procardia Xl - PO 60 mg DAILY ANITA Administration Non-Formulary Medication 2,000 unit 06/30/20 14:27 Cholecalciferol (Vitamin D3) [Vitamin D3] PO DAILY ANITA Pantoprazole Sodium 40 mg 06/30/20 10:00 06/30/20 09:00 Protonix Iv IVPUSH 40 mg DAILY ANITA Administration ASSESSMENT AND PLAN: 74 F Transverse colitis Hematochezia Afib on AC HTN HLD Glaucoma [place] Plan: Hold AC in view of active GIB Zosyn for abx, IVF Serial abominal exams GI evaluation Restart BP meds Monitor chem/cbc, replace lytes as needed Med-surg DVT ppx: SCD
[2020-06-30] MEDS ORDERED: LABETALOL HCL 5 MG/1 ML (100MG/20 ML VIAL) IVPUSH ONE (03:19)
[2020-06-30] MEDS ORDERED: LABETALOL HCL 100 MG TABLET (FP) PO ONE (04:06)
[2020-06-30 04:28] LABS: HEMATOCRIT 35.4 % (32.4-45.2); HEMOGLOBIN 11.8 GM/dL (10.7-15.3); MCH 32.4 pg (25.7-33.7); MCHC 33.2 g/dl (32.0-36.0); MEAN CELL VOLUME 97.6 fl (80-96); MEAN PLT VOLUME 8.9 fl (7.5-11.1); PLATELET COUNT 214 K/MM3 (134-434); RBC 3.63 M/mm3 (3.60-5.2); RDW 13.1 % (11.6-15.6); WHITE BLOOD COUNT 11.8 K/mm3 (4.0-10.0)
[2020-06-30 04:46] LABS: ALBUMIN 3.4 g/dl (3.4-5.0); BILIRUBIN,TOTAL 0.8 mg/dL (0.2-1); CALCIUM 9.4 mg/dL (8.5-10.1); CREATININE 1.1 mg/dL (0.55-1.3); MAGNESIUM 1.9 mg/dL (1.8-2.4); PHOSPHOROUS 3.5 mg/dL (2.5-4.9); TOT PROT 7.8 g/dl (6.4-8.2)
[2020-06-30] MEDS: INSULIN SLIDING SCALE (NOVOLOG) 1 VIAL SQ SCH ×3 (06:55→16:37)
[2020-06-30] MEDS: LOSARTAN POTASSIUM 50 MG TABLET PO SCH (09:00)
[2020-06-30] MEDS: NIFEdipine E.R 60 MG TABLET PO SCH (09:00)
[2020-06-30] MEDS ORDERED: PANTOPRAZOLE SODIUM 40 MG VIAL IVPUSH SCH (10:00)
[2020-06-30] MEDS: SODIUM CHLORIDE 0.45% 1,000 ML IV SCH (11:36)
[2020-06-30] MEDS ORDERED: CHOLECALCIFEROL PO SCH (13:45)
--- NOTE | 2020-06-30 13:45 | PN ---
Physical Exam: SUBJECTIVE: Patient seen and examined at bedside. Reports a sudden onset of abdominal pain yesterday, resolved with 1 large dark colored bowel movement. Followed by 3 episodes of loose stools with streaks of pink/red. [employer] color on toilet paper. Reports she takes IRON pills daily. This morning 1 episode of small solid bowel movement, no streaks of blood, but pink color streak on Toilet paper. No active abdominal pain. Tolerating clear liquid diet. passing gas. No fevers/chills, but admits to feeling colder than usual. OBJECTIVE: Vital Signs Period Temp Pulse Resp BP Sys/Red Pulse Ox Last 24 Hr 98.0 F-99.4 F 57-74 16-20 102-190/58-90 98-100 GENERAL: AAOx3, in no acute distress HEENT: NCAT, PERRLA, EOMI, sclera anicteric, conjunctiva clear, oropharynx clear w/o exudates. MMM. NECK: Normal ROM, supple, no lymphadenopathy, JVD, or masses LUNGS: CTABL no wheezes/ rhonchi/ rales. No distress, speaks in full sentences. No increased work of breathing. HEART: RRR, normal S1 S2, 3/6 systolic ejection murmur along the left sternal border. no R/G, peripheral pulses 2+ and equal b/l ABDOMEN: Soft, TTP of epigastric region and LLQ, + BS. No guarding or rebound. MSK: ROM WNL, NO CVA tenderness EXTREMITIES: Normal inspection. No peripheral edema. No clubbing or cyanosis. NEUROLOGICAL: CN II-XII intact. Normal speech, gait not observed, no focal sensorimotor deficits. PSYCH: Normal mood, normal affect. SKIN: Warm, Dry, normal turgor, no rashes or lesions noted Laboratory Results - last 24 hr 06/29/20 06/29/20 06/30/20 16:30 17:00 04:00 WBC 11.8 H RBC 3.63 Hgb 11.8 Hct 35.4 MCV 97.6 H MCH 32.4 MCHC 33.2 RDW 13.1 Plt Count 214 MPV 8.9 Sodium Potassium Chloride Carbon Dioxide Anion Gap BUN Creatinine Est GFR (CKD-EPI)AfAm Est GFR (CKD-EPI)NonAf POC Glucometer 62 Random Glucose Hemoglobin A1c % Calcium Phosphorus Magnesium Total Bilirubin AST ALT Alkaline Phosphatase Total Protein Albumin COVID-19 (EMMETT) Not detected 06/30/20 06/30/20 06/30/20 04:00 04:00 04:29 WBC RBC Hgb Hct MCV MCH MCHC RDW Plt Count MPV Sodium 140 Potassium 4.0 Chloride 107 Carbon Dioxide 26 Anion Gap 7 L BUN 14.0 Creatinine 1.1 Est GFR (CKD-EPI)AfAm 56.48 Est GFR (CKD-EPI)NonAf 48.73 POC Glucometer 90 Random Glucose 83 Hemoglobin A1c % 5.7 Calcium 9.4 Phosphorus 3.5 Magnesium 1.9 Total Bilirubin 0.8 AST 24 ALT 21 Alkaline Phosphatase 137 H Total Protein 7.8 Albumin 3.4 COVID-19 (EMMETT) 06/30/20 11:30 WBC RBC Hgb Hct MCV MCH MCHC RDW Plt Count MPV Sodium Potassium Chloride Carbon Dioxide Anion Gap BUN Creatinine Est GFR (CKD-EPI)AfAm Est GFR (CKD-EPI)NonAf POC Glucometer 104 Random Glucose Hemoglobin A1c % Calcium Phosphorus Magnesium Total Bilirubin AST ALT Alkaline Phosphatase Total Protein Albumin COVID-19 (EMMETT) Active Medications Generic Name Dose Route Start Last Admin Trade Name Freq PRN Reason Stop Dose Admin Piperacillin Sod/Tazobactam 50 mls @ 100 mls/hr 06/29/20 14:00 Sod 3.375 gm/ Dextrose IVPB Q8H-IV ANITA Protocol Metronidazole 500 mg in 100 mls @ 100 mls/hr 06/30/20 12:45 Flagyl 500mg Premixed Ivpb - IVPB Q8H-IV ANITA Insulin Aspart 1 vial 06/29/20 11:00 06/30/20 11:36 Novolog Vial Sliding Scale - SQ Not Given TIDAC COUNT INCLUDES [facility] Protocol Losartan Potassium 100 mg 06/29/20 12:15 06/30/20 09:00 Cozaar - PO 100 mg DAILY ANITA Administration Nifedipine 60 mg 06/29/20 11:00 06/30/20 09:00 Procardia Xl - PO 60 mg DAILY ANITA Administration Pantoprazole Sodium 40 mg 06/30/20 10:00 06/30/20 09:00 Protonix Iv IVPUSH 40 mg DAILY ANITA Administration Imagin/14 CTAP: IMPRESSION: 1. Diffuse gastric wall thickening that may be related to gastritis. 2. Markedly thickened and irregular mid transverse to proximal descending colon consistent with extensive colitis. ASSESSMENT/PLAN: 74 Y F with a PMH of HTN, HLD, Afib (on Eliquis), and asthma, presents with melena + Hematochezia+ LLQ pain for 1 day. CTAP consistent with extensive colitis, admitted for treatment of Colitis #Colitis - Likely infectious etiology, Leukocytosis - Extensive colitis noted on CT abdomen, pelvis - Gastroeneterolgy, Dr. Aj, following, recs appreciated Likely infectious, pending Stool studies - ID, Dr. Taveras is consulted, pending recs - Continue with Zosyn 3.375 Q8H + Flagyl 500mg Q8H, Pending ID recs - General surgery, Dr. Nicole, consulted, pending recs #Hx of Afib - stable, rate controlled - Holding Eliquis in setting of hematochezia + melena #Hx of HTN - BP stable at this time, will continue to monitor - Continue Nifedipine 60 mg QD - Continue Cozaar 100mg QD #Hx of HLD -Continue Lipitor 20mg QD #Hx of Nonketotic Hyperglycemic Hyperosmolar state - Hx of DM during steroid treatments, stopped metformin. - HGbA1c 5.7 - BGMs and ISS for today FEN - No standing fluids - will continue to monitor electrolytes - Clear liquid diet Prophylaxis - DVT: Holding chemical ppx, Melena + hematochezia - SCDs - GI: Protonix 40mg IV QD Dispo - Will continue to monitor in [place], Pending stool studies Visit type - Emergency Visit Emergency Visit: Yes ED Registration Date: 06/29/20 Care time: The patient presented to the Emergency Department on the above date and was hospitalized for further evaluation of their emergent condition. - New Patient This patient is new to me today: No - Critical Care Critical Care patient: No - Discharge Referral Referred to [facility] Med P.C.: Yes - Medication Review Med list reviewed for High Risk Meds patients 65 and older: Yes ATTENDING PHYSICIAN STATEMENT I saw and evaluated the patient. I reviewed the resident's note and discussed the case with the resident. I agree with the resident's findings and plan as documented. SUBJECTIVE: OBJECTIVE: ASSESSMENT AND PLAN:
[2020-06-30] MEDS: FOLIC ACID 1 MG TABLET (FP) PO SCH (14:34)
--- NOTE | 2020-06-30 15:11 | CONSULT ---
- Consultation REQUESTING PROVIDER: CONSULT REQUEST: We have been asked to surgically evaluate this patient for Colitis Hospitalist:Ernst Dunn MD HISTORY OF PRESENT ILLNESS: 74yo F was consulted to surgery to evaluate colitis/ abd pain. Patient is a 74 year old female with history of hypertension, hyperlipidemia, Afib (on Eliquis), asthma, presents with complaint of hematochezia, and left lower quadrant abdominal pain. Endorses symptoms began yesterday afternoon with sudden onset. Describes sharp, non radiating abdominal pain that was temporarily improved after passing bowel movement. She endorses three episodes of loosely formed bowel movements that were streaked with blood. She believes one bowel movement have been melenic, however she does endorse taking Iron supplements. Patient last attempted to drink chicken soup, and mint/ maren tea which she tolerated, however does endorse one episode of clear vomits after taking Letty[place] yesterday. She denies subjective fevers, chills, shortness of breath, chest pain, or palpitations. Patient endorses prior colonoscopy more than 10 years ago, which she reports was unremarkable. Pt denies h/o abd surgery in the past. Home Medications Medication Instructions Recorded Brimonidine Tartrate [Alphagan 1 drop OU BID 06/02/18 0.15% -] Ferrous Sulfate [Feosol] 325 mg PO BID 07/15/18 Albuterol Sulfate [Proair Hfa] 8.5 gm IH DAILY 07/21/18 Apixaban [Eliquis] 5 mg PO BID 07/21/18 Atorvastatin Ca [Lipitor] 20 mg PO DAILY 11/04/18 Cholecalciferol (Vitamin D3) 1 tab PO DAILY 11/05/18 [Vitamin D3] Folic Acid 1 mg PO DAILY 11/05/18 Nifedipine [Procardia Xl] 60 mg PO DAILY 06/29/20 Olmesartan Medoxomil [Benicar -] 40 mg PO DAILY 06/29/20 Spironolactone [Aldactone] 25 mg PO DAILY 06/29/20 Allergies Allergy/AdvReac Type Severity Reaction Status Date / Time melon Allergy Verified 06/29/20 06:50 strawberry Allergy Verified 06/29/20 06:50 lactose AdvReac Verified 06/29/20 06:50 REVIEW OF SYSTEMS: CONSTITUTIONAL: Absent: fever, chills, diaphoresis, generalized weakness, malaise, loss of appetite, weight change CARDIOVASCULAR: Absent: chest pain, syncope, palpitations, irregular heart rate, lightheadedness, peripheral edema RESPIRATORY: Absent: cough, shortness of breath, dyspnea with exertion, wheezing, stridor, hemoptysis GASTROINTESTINAL: Absent: abdominal distension, nausea, vomiting, diarrhea, constipation, hematochezia GENITOURINARY: Absent: dysuria, frequency, urgency, hesitancy, hematuria, flank pain, genital pain PHYSICAL EXAM: GENERAL: Awake, alert, and fully oriented, in no acute distress. HEAD: Normal with no signs of trauma. EYES: PERRL, sclera anicteric, conjunctiva clear. NECK: Normal ROM, supple without lymphadenopathy, JVD, or masses. LUNGS: Breathing comfortably, No accessory muscle use. HEART: Regular rate and rhythm. ABDOMEN: Soft, not distended, Mild Lt sided abdominal pain, no guarding, no rebound, no masses. No organomegaly. MUSCULOSKELETAL: Normal ROM at all joints. No bony deformities or tenderness. No CVA tenderness. UPPER EXTREMITIES: warm, well-perfused. No cyanosis. No peripheral edema. LOWER EXTREMITIES: warm, well-perfused. No calf tenderness. No peripheral edema. NEUROLOGICAL: Normal speech, gait not observed. PSYCH: Cooperative. Good eye contact. Appropriate mood and affect. SKIN: Warm, dry, normal turgor, no rashes or lesions noted. Vital Signs Temperature 99.1 F 06/30/20 09:00 Pulse Rate 58 L 06/30/20 09:00 Respiratory Rate 20 06/30/20 09:00 Blood Pressure 140/65 06/30/20 09:00 O2 Sat by Pulse Oximetry (%) 100 06/30/20 09:00 Lab Results WBC 11.8 K/mm3 (4.0-10.0) H 06/30/20 04:00 RBC 3.63 M/mm3 (3.60-5.2) 06/30/20 04:00 Hgb 11.8 GM/dL (10.7-15.3) 06/30/20 04:00 Hct 35.4 % (32.4-45.2) 06/30/20 04:00 MCV 97.6 fl (80-96) H 06/30/20 04:00 MCHC 33.2 g/dl (32.0-36.0) 06/30/20 04:00 RDW 13.1 % (11.6-15.6) 06/30/20 04:00 Plt Count 214 K/MM3 (134-434) 06/30/20 04:00 INR 1.10 (0.83-1.09) H 06/29/20 03:00 Sodium 140 mmol/L (136-145) 06/30/20 04:00 Potassium 4.0 mmol/L (3.5-5.1) 06/30/20 04:00 Chloride 107 mmol/L (98-107) 06/30/20 04:00 Carbon Dioxide 26 mmol/L (21-32) 06/30/20 04:00 Anion Gap 7 MMOL/L (8-16) L 06/30/20 04:00 BUN 14.0 mg/dL (7-18) 06/30/20 04:00 Creatinine 1.1 mg/dL (0.55-1.3) 06/30/20 04:00 Random Glucose 83 mg/dL (74-106) 06/30/20 04:00 Calcium 9.4 mg/dL (8.5-10.1) 06/30/20 04:00 Blood Type Cancelled 06/29/20 03:00 Antibody Screen Cancelled 06/29/20 03:00 CT abd/pel: Extensive colitis noted Problem List - Problems (1) Colitis Assessment/Plan: Plan -no need for acute surgical intervention at this time. -medical management with IVF, abx -GI consult Pt discussed with Dr. Gore who agrees with plan, please contact surgery team if any acute changes. Code(s): K52.9 - NONINFECTIVE GASTROENTERITIS AND COLITIS, UNSPECIFIED
--- NOTE | 2020-06-30 15:49 | PN ---
Teaching Attending Note Name of Resident: Conor [place] ATTENDING PHYSICIAN STATEMENT I saw and evaluated the patient. I reviewed the resident's note and discussed the case with the resident. I agree with the resident's findings and plan as documented. SUBJECTIVE: Patient sitting up in bed, no longer with abdominal pain. Tolerated Clear diet OBJECTIVE: Vital Signs Period Temp Pulse Resp BP Sys/Red Pulse Ox Last 24 Hr 98.0 F-99.4 F 57-74 16-20 124-185/55-88 96-100 Please see resident note for physical exam Imaging, labs reviewed ASSESSMENT AND PLAN: 74 y/o F with Hx of HTN, HLD, A. Fib, Asthma who presents with BRBPR BRBPR: Fani 2/2 infectious colitis Continue Abx Clear Liquid Diet Pain control with tylenol Continue to monitor Hb Patient will need [place] in 6 weeks Atrial Fibrillation Continue rate control Hold AC in setting of active bleed Defer to Gi when patient can restart AC HLD Cont Statin HTN Cont Losartan, Nifedipine
--- NOTE | 2020-06-30 15:59 | PN.GI ---
GI Progress Note Subjective: No further bleeding. Abdominal pain improved. - Objective Vital Signs: Vital Signs Temperature 98.6 F 06/30/20 14:53 Pulse Rate 59 L 06/30/20 14:53 Respiratory Rate 20 06/30/20 14:53 Blood Pressure 124/55 L 06/30/20 14:53 O2 Sat by Pulse Oximetry (%) 96 06/30/20 14:53 Constitutional: Calm Eyes: No: Sclera Icterus Cardiovascular: Yes: Regular Rate and Rhythm Respiratory: Yes: CTA Bilaterally Gastrointestinal Inspection: No: Distention ...Auscultate: Yes: Normoactive Bowel Sounds ...Palpate: Yes: Tenderness (Mild TTP Left abdomen) Edema: No (No LE edema) Neurological: Yes: Alert Labs: CBC, BMP 06/30/20 04:00 06/30/20 04:00 INR, PTT INR 1.10 (0.83-1.09) H 06/29/20 03:00 Problem List - Problems (1) Colitis Assessment/Plan: Overall improved clinically Excluding infectious etiology, however ischemic colitis would need to be considered higher in the differential Advise: NPO except meds Stopped PPI Abx per ID Ordered stool C. Diff If worsening leukocytosis, pain, fevers, rectal bleeding, flexible sigmoidoscopy to assess colitis further and assess for iischemic changes, otheserwise oputpatient colonoscopy. \ Code(s): K52.9 - NONINFECTIVE GASTROENTERITIS AND COLITIS, UNSPECIFIED
[2020-06-30] MEDS: DEXTROSE 5%-LACTATED RINGERS 1,000 ML IV SCH (18:05)
[2020-06-30] MEDS ORDERED: ACETAMINOPHEN 1000 MG/100 ML VIAL (NON FORMULARY) IVPB ONE (19:25)
[2020-06-30] MEDS: ATORVASTATIN CA 20 MG TABLET (FP) PO SCH (21:06)
[2020-07-01] MEDS ORDERED: DEXTROSE 5%-WATER - 50 ML IVPB ONE ×2 (01:42→09:34)
[2020-07-01] MEDS ORDERED: PIPERACILLIN/TAZOBACTAM 3.375 GM VIAL IVPB ONE ×2 (01:42→09:34)
[2020-07-01] MEDS: PIPERACILLIN/TAZOB 3.375 GM 3.375 GM in DEXTROSE 5%-WATER - 50 ML IVPB SCH ×4 (01:46→16:06)
[2020-07-01] MEDS: INSULIN SLIDING SCALE (NOVOLOG) 1 VIAL SQ SCH ×3 (06:21→17:42)
[2020-07-01 07:15] LABS: BASO % 0.5 % (0-2.0); EOS % 2.2 % (0-4.5); HEMATOCRIT 31.8 % (32.4-45.2); HEMOGLOBIN 10.4 GM/dL (10.7-15.3); LYMPH % 12.1 % (8-40); MCH 31.9 pg (25.7-33.7); MCHC 32.8 g/dl (32.0-36.0); MEAN CELL VOLUME 97.1 fl (80-96); MEAN PLT VOLUME 8.7 fl (7.5-11.1); MONO % 8.1 % (3.8-10.2); NEUT % 77.1 % (42.8-82.8); PLATELET COUNT 198 K/MM3 (134-434); RBC 3.28 M/mm3 (3.60-5.2); RDW 13.2 % (11.6-15.6); WHITE BLOOD COUNT 8.8 K/mm3 (4.0-10.0)
[2020-07-01 07:57] LABS: POTASSIUM 3.7 mmol/L (3.5-5.1)
[2020-07-01 08:10] LABS: ALBUMIN 2.8 g/dl (3.4-5.0); BILIRUBIN,TOTAL 0.9 mg/dL (0.2-1); BLOOD UREA NITROGEN 10.9 mg/dL (7-18); CALCIUM 9.2 mg/dL (8.5-10.1); CREATININE 1.1 mg/dL (0.55-1.3); MAGNESIUM 1.9 mg/dL (1.8-2.4); PHOSPHOROUS 3.3 mg/dL (2.5-4.9); TOT PROT 6.5 g/dl (6.4-8.2)
--- NOTE | 2020-07-01 08:39 | PN.GI ---
GI Progress Note Subjective: Sitting up eating clear liquids Some left sided pain internmittently, No bleeding Overall improved - Objective Vital Signs: Vital Signs Temperature 97.8 F 07/01/20 03:00 Pulse Rate 66 07/01/20 03:00 Respiratory Rate 20 07/01/20 03:00 Blood Pressure 136/63 07/01/20 03:00 O2 Sat by Pulse Oximetry (%) 100 07/01/20 03:00 Constitutional: Calm Eyes: No: Sclera Icterus Cardiovascular: Yes: Regular Rate and Rhythm Respiratory: Yes: CTA Bilaterally Gastrointestinal Inspection: No: Distention ...Auscultate: Yes: Normoactive Bowel Sounds ...Palpate: Yes: Soft, Tenderness (Mild TTP left abdomen). No: Guarding ...Percussion: No: Tympanitic Edema: No (No LE edema) Neurological: Yes: Alert Labs: CBC, BMP 07/01/20 06:31 07/01/20 06:31 INR, PTT INR 1.10 (0.83-1.09) H 06/29/20 03:00 Problem List - Problems (1) Colitis Assessment/Plan: Clinicaly improvement If pain improved, advance to full liquids in AM Stool for C. Diff if diarrhea persists Abx per ID Code(s): K52.9 - NONINFECTIVE GASTROENTERITIS AND COLITIS, UNSPECIFIED
[2020-07-01] MEDS ORDERED: BRIMONIDINE TARTRATE 0.15% OPHTHALMIC 5 ML BOTTLE OU SCH (10:00)
[2020-07-01] MEDS: CHOLECALCIFEROL (VIT D3) 1,000 UNIT (25 MCG) TABLET PO SCH (10:11)
[2020-07-01] MEDS: NIFEdipine E.R 60 MG TABLET PO SCH (10:12)
[2020-07-01] MEDS: FOLIC ACID 1 MG TABLET (FP) PO SCH (10:12)
[2020-07-01] MEDS: LOSARTAN POTASSIUM 50 MG TABLET PO SCH (10:12)
--- NOTE | 2020-07-01 10:51 | CON.ID ---
Consult Consult Specialty:: infectious diseases Referred by:: hospitalist Reason for Consultation:: dirrhoea,colitis - History of Present Illness Chief Complaint: abd pain ,dirrhoea History of Present Illness: 4 year old female with history of hypertension, hyperlipidemia, Afib (on Eliquis), asthma, presents with complaint of hematochezia, and left lower quadrant abdominal pain. Endorses symptoms began yesterday afternoon with sudden onset. Describes sharp, non radiating abdominal pain that was temporarily improved after passing bowel movement. She endorses three episodes of loosely formed bowel movements that were streaked with blood. She believes one bowel movement have been melenic, however she does endorse taking Iron supplements. Patient last attempted to drink chicken soup, and mint/ maren tea which she tolerated, however does endorse one episode of clear vomits after taking Letty- [place] yesterday. She denies subjective fevers, chills, shortness of breath, chest pain, or palpitations. Patient endorses prior colonoscopy more than 10 years ago, which she reports was unremarkable. still having dirrhoea--but says consistency ahs improved denies any blood in the stools - History Source History Provided By: Patient Limitations to Obtaining History: No Limitations - Past Medical History Cardio/Vascular: Yes: AFIB, HTN, Hyperlipdemia Pulmonary: Yes: Asthma Renal/: Yes: Other (renal cyst and adrenal lesion) ...: No Endocrine: Yes: Diabetes Mellitus - Alcohol/Substance Use Hx Alcohol Use: No History of Substance Use: reports: None - Smoking History Smoking history: Never smoked Have you smoked in the past 12 months: No - Social History Usual Living Arrangement: With Spouse ADL: Independent 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 History of Recent Travel: No Home Medications - Allergies Allergies/Adverse Reactions: Allergies Allergy/AdvReac Type Severity Reaction Status Date / Time melon Allergy Verified 06/29/20 06:50 strawberry Allergy Verified 06/29/20 06:50 lactose AdvReac Verified 06/29/20 06:50 - Home Medications Home Medications: Ambulatory Orders Brimonidine Tartrate [Alphagan 0.15% -] 1 drop OU BID 06/02/18 Ferrous Sulfate [Feosol] 325 mg PO BID 07/15/18 Albuterol Sulfate [Proair Hfa] 8.5 gm IH DAILY 07/21/18 Apixaban [Eliquis] 5 mg PO BID 07/21/18 Atorvastatin Ca [Lipitor] 20 mg PO DAILY 11/04/18 Cholecalciferol (Vitamin D3) [Vitamin D3] 1 tab PO DAILY 11/05/18 Folic Acid 1 mg PO DAILY 11/05/18 Nifedipine [Procardia Xl] 60 mg PO DAILY 06/29/20 Olmesartan Medoxomil [Benicar -] 40 mg PO DAILY 06/29/20 Spironolactone [Aldactone] 25 mg PO DAILY 06/29/20 Review of Systems - Review of Systems Constitutional: reports: No Symptoms Eyes: reports: No Symptoms HENT: reports: No Symptoms Neck: reports: No Symptoms Cardiovascular: reports: No Symptoms Respiratory: reports: No Symptoms Gastrointestinal: reports: Abdominal Pain, Diarrhea Genitourinary: reports: No Symptoms Musculoskeletal: reports: No Symptoms Integumentary: reports: No Symptoms Neurological: reports: No Symptoms Endocrine: reports: No Symptoms Hematology/Lymphatic: reports: No Symptoms Psychiatric: reports: No Symptoms Physical Exam Vital Signs: Vital Signs Temperature 97.8 F 07/01/20 03:00 Pulse Rate 66 07/01/20 03:00 Respiratory Rate 20 07/01/20 03:00 Blood Pressure 136/63 07/01/20 03:00 O2 Sat by Pulse Oximetry (%) 100 07/01/20 03:00 Constitutional: Yes: No Distress, Calm, Thin Eyes: Yes: Conjunctiva Clear HENT: Yes: Atraumatic, Normocephalic Neck: Yes: Supple, Trachea Midline Cardiovascular: Yes: Pulse Irregular Respiratory: Yes: Regular, CTA Bilaterally Gastrointestinal: Yes: Normal Bowel Sounds, Soft, Other Musculoskeletal: Yes: WNL Extremities: Yes: WNL Neurological: Yes: Alert, Oriented Psychiatric: Yes: Alert, Oriented Labs: CBC, BMP 07/01/20 06:31 07/01/20 06:31 Imaging - Results Chest X-ray: Report Reviewed, Image Reviewed Cat Scan: Report Reviewed, Image Reviewed Assessment/Plan 74 year old female with history of hypertension, hyperlipidemia, Afib (on Eliquis), asthma, presents with complaint of hematochezia, and left lower quadrant abdominal pain. Colitis History of Afib History of hypertension History of hyperlipidemia History of Diabetes Mellitus (non insulin dependent) plan will start patient on abx gi [facility] as per the team
--- NOTE | 2020-07-01 10:55 | PN ---
Progress Note, Physician History of Present Illness: having still a little loose stools still says does nto feel right about the belly - Current Medication List Current Medications: Active Medications Atorvastatin Calcium (Lipitor -) 20 mg PO HS [facility] Last Admin: 06/30/20 21:06 Dose: 20 mg Documented by: Brimonidine Tartrate (Alphagan 0.15% -) 1 drop OU BID ANITA Cholecalciferol (Vitamin D3 -) 2,000 unit PO DAILY [facility] Last Admin: 07/01/20 10:11 Dose: 2,000 unit Documented by: Folic Acid (Folic Acid -) 1 mg PO DAILY [facility] Last Admin: 07/01/20 10:12 Dose: 1 mg Documented by: Piperacillin Sod/Tazobactam (Sod 3.375 gm/ Dextrose) 50 mls @ 100 mls/hr IVPB Q8H-IV ANITA; Protocol Metronidazole (Flagyl 500mg Premixed Ivpb -) 500 mg in 100 mls @ 100 mls/hr IVPB Q8H-IV ANITA Last Admin: 07/01/20 10:11 Dose: 100 mls/hr Documented by: Dextrose/Lactated Ringer's (D5-Lr -) 1,000 mls @ 83 mls/hr IV ASDIR [facility] Last Admin: 06/30/20 18:05 Dose: 83 mls/hr Documented by: Piperacillin Sod/Tazobactam (Sod 3.375 gm/ Dextrose) 50 mls @ 100 mls/hr IVPB Q8H-IV ANITA; Protocol Stop: 07/01/20 18:29 Last Admin: 07/01/20 01:46 Dose: 100 mls/hr Documented by: Insulin Aspart (Novolog Vial Sliding Scale -) 1 vial SQ TIDAC [facility]; Protocol Last Admin: 07/01/20 06:21 Dose: Not Given Documented by: Losartan Potassium (Cozaar -) 100 mg PO DAILY [facility] Last Admin: 07/01/20 10:12 Dose: 100 mg Documented by: Nifedipine (Procardia Xl -) 60 mg PO DAILY [facility] Last Admin: 07/01/20 10:12 Dose: 60 mg Documented by: - Objective Vital Signs: Vital Signs Temperature 97.8 F 07/01/20 03:00 Pulse Rate 66 07/01/20 03:00 Respiratory Rate 20 07/01/20 03:00 Blood Pressure 136/63 07/01/20 03:00 O2 Sat by Pulse Oximetry (%) 100 07/01/20 03:00 Constitutional: Yes: No Distress, Calm Cardiovascular: Yes: S1, S2 Respiratory: Yes: Regular, CTA Bilaterally Gastrointestinal: Yes: Normal Bowel Sounds, Soft Musculoskeletal: Yes: WNL Extremities: Yes: WNL Neurological: Yes: Alert, Oriented Psychiatric: Yes: Alert, Oriented Labs: CBC, BMP 07/01/20 06:31 07/01/20 06:31 INR, PTT INR 1.10 (0.83-1.09) H 06/29/20 03:00 Assessment/Plan 74 year old female with history of hypertension, hyperlipidemia, Afib (on Eliquis), asthma, presents with complaint of hematochezia, and left lower quadrant abdominal pain. Colitis History of Afib History of hypertension History of hyperlipidemia History of Diabetes Mellitus (non insulin dependent) plan continue abx monitor
[2020-07-01] MEDS ORDERED: APIXABAN 5 MG TABLET PO SCH (12:30)
--- NOTE | 2020-07-01 14:51 | PN ---
Physical Exam: SUBJECTIVE: Patient seen and examined at bedside, reports improvements of her abdominal pain, 1 BM w/o any blood, discoloration. Tolerating clear liquid diet OBJECTIVE: Vital Signs Period Temp Pulse Resp BP Sys/Red Pulse Ox Last 24 Hr 97.8 F-98.6 F 56-66 18-20 118-136/55-68 96-100 GENERAL: AAOx3, in no acute distress HEENT: NCAT, PERRLA, EOMI, sclera anicteric, conjunctiva clear, oropharynx clear w/o exudates. MMM. NECK: Normal ROM, supple, no lymphadenopathy, JVD, or masses LUNGS: CTABL no wheezes/ rhonchi/ rales. No distress, speaks in full sentences. No increased work of breathing. HEART: RRR, normal S1 S2, 3/6 systolic ejection murmur along the left sternal border. no R/G, peripheral pulses 2+ and equal b/l ABDOMEN: Soft, TTP of epigastric region and LLQ, + BS. No guarding or rebound. MSK: ROM WNL, NO CVA tenderness EXTREMITIES: Normal inspection. No peripheral edema. No clubbing or cyanosis. NEUROLOGICAL: CN II-XII intact. Normal speech, gait not observed, no focal sensorimotor deficits. PSYCH: Normal mood, normal affect. SKIN: Warm, Dry, normal turgor, no rashes or lesions noted Laboratory Results - last 24 hr 06/30/20 06/30/20 06/30/20 16:15 16:19 16:22 WBC RBC Hgb Hct MCV MCH MCHC RDW Plt Count MPV Absolute Neuts (auto) Neutrophils % Lymphocytes % Monocytes % Eosinophils % Basophils % Nucleated RBC % Sodium Potassium Chloride Carbon Dioxide Anion Gap BUN Creatinine Est GFR (CKD-EPI)AfAm Est GFR (CKD-EPI)NonAf POC Glucometer 66 69 75 Random Glucose Calcium Phosphorus Magnesium Total Bilirubin AST ALT Alkaline Phosphatase Total Protein Albumin 06/30/20 07/01/20 07/01/20 21:05 06:19 06:31 WBC 8.8 RBC 3.28 L Hgb 10.4 L Hct 31.8 L MCV 97.1 H MCH 31.9 MCHC 32.8 RDW 13.2 Plt Count 198 MPV 8.7 Absolute Neuts (auto) 6.8 Neutrophils % 77.1 Lymphocytes % 12.1 Monocytes % 8.1 Eosinophils % 2.2 D Basophils % 0.5 Nucleated RBC % 0 Sodium Potassium Chloride Carbon Dioxide Anion Gap BUN Creatinine Est GFR (CKD-EPI)AfAm Est GFR (CKD-EPI)NonAf POC Glucometer 97 107 Random Glucose Calcium Phosphorus Magnesium Total Bilirubin AST ALT Alkaline Phosphatase Total Protein Albumin 07/01/20 07/01/20 06:31 11:42 WBC RBC Hgb Hct MCV MCH MCHC RDW Plt Count MPV Absolute Neuts (auto) Neutrophils % Lymphocytes % Monocytes % Eosinophils % Basophils % Nucleated RBC % Sodium 139 Potassium 3.7 Chloride 105 Carbon Dioxide 27 Anion Gap 6 L BUN 10.9 Creatinine 1.1 Est GFR (CKD-EPI)AfAm 56.48 Est GFR (CKD-EPI)NonAf 48.73 POC Glucometer 81 Random Glucose 99 Calcium 9.2 Phosphorus 3.3 Magnesium 1.9 Total Bilirubin 0.9 AST 26 ALT 15 Alkaline Phosphatase 106 Total Protein 6.5 Albumin 2.8 L Active Medications Generic Name Dose Route Start Last Admin Trade Name Freq PRN Reason Stop Dose Admin Apixaban 5 mg 07/01/20 12:30 Eliquis - PO BID ANITA Atorvastatin Calcium 20 mg 06/30/20 22:00 06/30/20 21:06 Lipitor - PO 20 mg HS ANITA Administration Brimonidine Tartrate 1 drop 07/01/20 14:30 Alphagan 0.15% - OU TID ANITA Cholecalciferol 2,000 unit 06/30/20 14:27 07/01/20 10:11 Vitamin D3 - PO 2,000 unit DAILY ANITA Administration Folic Acid 1 mg 06/30/20 13:45 07/01/20 10:12 Folic Acid - PO 1 mg DAILY ANITA Administration Piperacillin Sod/Tazobactam 50 mls @ 100 mls/hr 06/29/20 14:00 Sod 3.375 gm/ Dextrose IVPB Q8H-IV ANITA Protocol Metronidazole 500 mg in 100 mls @ 100 mls/hr 06/30/20 12:45 07/01/20 10:11 Flagyl 500mg Premixed Ivpb - IVPB 100 mls/hr Q8H-IV ANITA Administration Dextrose/Lactated Ringer's 1,000 mls @ 83 mls/hr 06/30/20 17:00 06/30/20 18:05 D5-Lr - IV 83 mls/hr ASDIR ANITA Administration Piperacillin Sod/Tazobactam 50 mls @ 100 mls/hr 07/01/20 02:00 07/01/20 11:34 Sod 3.375 gm/ Dextrose IVPB 07/01/20 18:29 100 mls/hr Q8H-IV ANITA Administration Protocol Insulin Aspart 1 vial 06/29/20 11:00 07/01/20 11:51 Novolog Vial Sliding Scale - SQ Not Given TIDAC ANITA Protocol Losartan Potassium 100 mg 06/29/20 12:15 07/01/20 10:12 Cozaar - PO 100 mg DAILY ANITA Administration Nifedipine 60 mg 06/29/20 11:00 07/01/20 10:12 Procardia Xl - PO 60 mg DAILY ANITA Administration ASSESSMENT/PLAN: Imagin/14 CTAP: IMPRESSION: 1. Diffuse gastric wall thickening that may be related to gastritis. 2. Markedly thickened and irregular mid transverse to proximal descending colon consistent with extensive colitis. ASSESSMENT/PLAN: 74 Y F with a PMH of HTN, HLD, Afib (on Eliquis), and asthma, presents with melena + Hematochezia+ LLQ pain for 1 day. CTAP consistent with extensive colitis, admitted for treatment of Colitis #Colitis - Likely infectious etiology, Leukocytosis improving, vs Ischemic - Extensive colitis noted on CT abdomen, pelvis - Gastroeneterolgy, Dr. Varner, following, recs appreciated - Pending stool cultures - ID, Dr. Taveras is following, recs appreciated - Continue with Zosyn 3.375 Q8H + Flagyl 500mg Q8H - General surgery, Dr. Nicole, consulted No acute surgical interventions #Hx of Afib - stable, rate controlled - Holding Eliquis for today, willl resume tomorrow, if no BRBPR #Hx of HTN - BP stable at this time, will continue to monitor - Continue Nifedipine 60 mg QD - Continue Cozaar 100mg QD #Hx of HLD -Continue Lipitor 20mg QD #Hx of Nonketotic Hyperglycemic Hyperosmolar state - Hx of DM during steroid treatments, stopped metformin. - HGbA1c 5.7 - BGMs and ISS FEN - No standing fluids - will continue to monitor electrolytes - Clear liquid diet Prophylaxis - DVT: Holding chemical ppx, Melena + hematochezia - SCDs - GI: Protonix 40mg IV QD Dispo - Will continue to monitor in [place], Pending stool studies Visit type - Emergency Visit Emergency Visit: Yes ED Registration Date: 06/29/20 Care time: The patient presented to the Emergency Department on the above date and was hospitalized for further evaluation of their emergent condition. - New Patient This patient is new to me today: No - Critical Care Critical Care patient: No - Discharge Referral Referred to [facility] No - Medication Review Med list reviewed for High Risk Meds patients 65 and older: Yes ATTENDING PHYSICIAN STATEMENT I saw and evaluated the patient. I reviewed the resident's note and discussed the case with the resident. I agree with the resident's findings and plan as documented. SUBJECTIVE: OBJECTIVE: ASSESSMENT AND PLAN:
[2020-07-01] MEDS: BRIMONIDINE TARTRATE 0.15% OPHTHALMIC 5 ML BOTTLE OU SCH ×2 (16:05→21:09)
--- NOTE | 2020-07-01 19:03 | PN ---
Teaching Attending Note Name of Resident: Conor [place] ATTENDING PHYSICIAN STATEMENT I saw and evaluated the patient. I reviewed the resident's note and discussed the case with the resident. I agree with the resident's findings and plan as documented. SUBJECTIVE: No fever or chills. has better Abd pain. formed stool. No N/V . tolerated liqu ids OBJECTIVE: NAD Cv: RRR, 3/6 SM Lungs: CTAB Abd:sfot, slight TTP in epigastrica nd LLQ. NL BS . no guarding LE no edema ASSESSMENT AND PLAN: 74 y/o lady with HTN, HLD, A. Fib, Asthma who presented with adb pain and was found to have vazquez colitis 1- vazquez colitis ,infectious vs ischemic 2- h/o A fib 3- hematochezia , stopped ( small amount on admission ) 4- HTN plan : cont Abx, change to CTX and flagly - c diff cancelled as stool is formed resume eliquis full liquid cont HTN meds urine cx with low colonies
[2020-07-01] MEDS: ATORVASTATIN CA 20 MG TABLET (FP) PO SCH (21:10)
[2020-07-02] MEDS: DEXTROSE 5%-LACTATED RINGERS 1,000 ML IV SCH (01:08)
[2020-07-02] MEDS ORDERED: INSULIN (NOVOLOG) ASPART 100 UNITS/ML 10ML VIAL ONE (05:44)
[2020-07-02] MEDS: BRIMONIDINE TARTRATE 0.15% OPHTHALMIC 5 ML BOTTLE OU SCH ×3 (06:03→21:06)
[2020-07-02] MEDS: INSULIN SLIDING SCALE (NOVOLOG) 1 VIAL SQ SCH ×2 (06:06→11:41)
[2020-07-02 06:55] LABS: BASO % 0.7 % (0-2.0); EOS % 2.7 % (0-4.5); HEMATOCRIT 33.4 % (32.4-45.2); HEMOGLOBIN 11.1 GM/dL (10.7-15.3); LYMPH % 19.1 % (8-40); MCH 32.5 pg (25.7-33.7); MEAN CELL VOLUME 98.2 fl (80-96); MEAN PLT VOLUME 8.8 fl (7.5-11.1); MONO % 8.3 % (3.8-10.2); NEUT % 69.2 % (42.8-82.8); PLATELET COUNT 207 K/MM3 (134-434); RBC 3.41 M/mm3 (3.60-5.2); RDW 13.2 % (11.6-15.6); WHITE BLOOD COUNT 8.4 K/mm3 (4.0-10.0)
[2020-07-02 07:17] LABS: POTASSIUM 3.3 mmol/L (3.5-5.1)
[2020-07-02 07:23] LABS: ALBUMIN 3.1 g/dl (3.4-5.0); CALCIUM 9.1 mg/dL (8.5-10.1)
[2020-07-02 07:24] LABS: MAGNESIUM 1.6 mg/dL (1.8-2.4)
[2020-07-02 07:26] LABS: PHOSPHOROUS 2.7 mg/dL (2.5-4.9)
[2020-07-02 07:28] LABS: BILIRUBIN,TOTAL 0.5 mg/dL (0.2-1); TOT PROT 7.2 g/dl (6.4-8.2)
--- NOTE | 2020-07-02 07:32 | PN.GI ---
GI Progress Note Subjective: DOING MUCH BETTER - SITTING UP EATING ; DENIES ABD PAIN / N/V/ DIARRHEA - Objective Vital Signs: Vital Signs Temperature 98.6 F 07/02/20 06:23 Pulse Rate 65 07/02/20 06:23 Respiratory Rate 20 07/02/20 06:23 Blood Pressure 156/71 07/02/20 06:23 O2 Sat by Pulse Oximetry (%) 100 07/02/20 06:23 Constitutional: Well Nourished, No Distress, Calm Eyes: Yes: WNL Cardiovascular: Yes: WNL, Regular Rate and Rhythm Respiratory: Yes: WNL, Regular, CTA Bilaterally Gastrointestinal Inspection: Yes: WNL ...Auscultate: Yes: Normoactive Bowel Sounds Extremities: Yes: WNL Edema: No Labs: CBC, BMP 07/02/20 06:21 07/02/20 06:21 INR, PTT INR 1.10 (0.83-1.09) H 06/29/20 03:00 Problem List - Problems (1) Colitis Assessment/Plan: - STOOL CULTURES SO FAR NEGATIVE ; CDIFF CANCELLED - COMPLETE 7 DAY COURSE OF ABX - LOW RESIDUE LACTOSE FREE DIET - IF CONTINUES TO IMPROVE NO OBJECTION TO DC HOME TOMORROW WITH OUTPT GI F/U Code(s): K52.9 - NONINFECTIVE GASTROENTERITIS AND COLITIS, UNSPECIFIED (2) Abdominal pain Code(s): R10.9 - UNSPECIFIED ABDOMINAL PAIN Qualifiers: Abdominal location: unspecified location Qualified Code(s): R10.9 - Unspecified abdominal pain (3) A-fib Code(s): I48.91 - UNSPECIFIED ATRIAL FIBRILLATION Qualifiers: Atrial fibrillation type: paroxysmal Qualified Code(s): I48.0 - Paroxysmal atrial fibrillation (4) Anemia Code(s): D64.9 - ANEMIA, UNSPECIFIED Qualifiers: Anemia type: unspecified type Qualified Code(s): D64.9 - Anemia, unspecified
[2020-07-02] MEDS ORDERED: POTASSIUM CHLORIDE TABS 20 MEQ TABLET.ER (FP) PO ONE ×2 (08:21→08:22)
[2020-07-02] MEDS ORDERED: DEXTROSE 5%-WATER - 50 ML IVPB ONE (09:03)
[2020-07-02] MEDS ORDERED: cefTRIAXone SODIUM 1 GM VIAL ONE ×2 (09:03→12:03)
[2020-07-02] MEDS: CEFTRIAXONE 1 GM in DEXTROSE 5%-WATER - 50 ML IVPB SCH (09:15)
[2020-07-02] MEDS: CHOLECALCIFEROL (VIT D3) 1,000 UNIT (25 MCG) TABLET PO SCH (09:17)
[2020-07-02] MEDS: NIFEdipine E.R 60 MG TABLET PO SCH (09:18)
[2020-07-02] MEDS: FOLIC ACID 1 MG TABLET (FP) PO SCH (09:18)
[2020-07-02] MEDS: LOSARTAN POTASSIUM 50 MG TABLET PO SCH (09:18)
[2020-07-02] MEDS: APIXABAN 5 MG TABLET PO SCH ×2 (09:18→21:05)
--- NOTE | 2020-07-02 11:38 | PN ---
Progress Note, Physician History of Present Illness: says soft stools now - Current Medication List Current Medications: Active Medications Apixaban (Eliquis -) 5 mg PO BID [facility] Last Admin: 07/02/20 09:18 Dose: 5 mg Documented by: Atorvastatin Calcium (Lipitor -) 20 mg PO HS [facility] Last Admin: 07/01/20 21:10 Dose: 20 mg Documented by: Brimonidine Tartrate (Alphagan 0.15% -) 1 drop OU TID [facility] Last Admin: 07/02/20 06:03 Dose: 1 drop Documented by: Cholecalciferol (Vitamin D3 -) 2,000 unit PO DAILY [facility] Last Admin: 07/02/20 09:17 Dose: 2,000 unit Documented by: Folic Acid (Folic Acid -) 1 mg PO DAILY [facility] Last Admin: 07/02/20 09:18 Dose: 1 mg Documented by: Metronidazole (Flagyl 500mg Premixed Ivpb -) 500 mg in 100 mls @ 100 mls/hr IVPB Q8H-IV [facility] Last Admin: 07/02/20 09:15 Dose: 100 mls/hr Documented by: Ceftriaxone Sodium 1 gm/ (Dextrose) 50 mls @ 100 mls/hr IVPB DAILY [facility]; Protocol Last Admin: 07/02/20 09:15 Dose: 100 mls/hr Documented by: Losartan Potassium (Cozaar -) 100 mg PO DAILY [facility] Last Admin: 07/02/20 09:18 Dose: 100 mg Documented by: Nifedipine (Procardia Xl -) 60 mg PO DAILY [facility] Last Admin: 07/02/20 09:18 Dose: 60 mg Documented by: - Objective Vital Signs: Vital Signs Temperature 98.6 F 07/02/20 06:23 Pulse Rate 65 07/02/20 06:23 Respiratory Rate 20 07/02/20 06:23 Blood Pressure 156/71 07/02/20 06:23 O2 Sat by Pulse Oximetry (%) 96 07/02/20 09:00 Constitutional: Yes: No Distress, Calm Cardiovascular: Yes: S1, S2 Respiratory: Yes: Regular, CTA Bilaterally Gastrointestinal: Yes: Normal Bowel Sounds, Soft Musculoskeletal: Yes: WNL Extremities: Yes: WNL Neurological: Yes: Alert, Oriented Psychiatric: Yes: Alert, Oriented Labs: CBC, BMP 07/02/20 06:21 07/02/20 06:21 INR, PTT INR 1.10 (0.83-1.09) H 06/29/20 03:00 Assessment/Plan 74 year old female with history of hypertension, hyperlipidemia, Afib (on Eliquis), asthma, presents with complaint of hematochezia, and left lower quadrant abdominal pain. Colitis History of Afib History of hypertension History of hyperlipidemia History of Diabetes Mellitus (non insulin dependent) plan continue abx monitor
--- NOTE | 2020-07-02 15:03 | PN ---
Teaching Attending Note Name of Resident: Sunil Merrill ATTENDING PHYSICIAN STATEMENT I saw and evaluated the patient. I reviewed the resident's note and discussed the case with the resident. I agree with the resident's findings and plan as documented. solid BMs , 3 small ones today. minimal abd pain PE : NAD Cv: RRR, 3/6 SM Lungs: CTAB Abd:soft, NT, NL BS LE no edema ASSESSMENT AND PLAN: 74 y/o lady with HTN, HLD, A. Fib, Asthma who presented with adb pain and was found to have vazquez colitis 1- vazquez colitis ,infectious vs ischemic 2- h/o A fib 3- hematochezia , stopped ( small amount on admission ) 4- HTN plan : cont Abx,CTX and flagly cont eliquis advance diet cont HTN meds possible dc tomorrow
--- NOTE | 2020-07-02 16:58 | DS ---
Physical Exam: SUBJECTIVE: Patient seen and examined. Pt. stats that she feels much better ad is without GI, bleed, nausea or vomiting. OBJECTIVE: Vital Signs Period Temp Pulse Resp BP Sys/Red Pulse Ox Last 24 Hr 98.3 F-98.6 F 54-74 20-20 105-156/64-75 96-100 PHYSICAL EXAM GENERAL: The patient is awake, alert in no acute distress. HEAD: Normal with no signs of trauma. EYES: Sclera anicteric, conjunctiva clear. ENT: Moist mucous membranes. NECK: Trachea midline LUNGS: Breath sounds equal, clear to auscultation bilaterally, no wheezes, no crackles, no accessory muscle use. HEART: Regular rate and rhythm, S1, S2 without murmur, rub or gallop. ABDOMEN: Soft, mild epigastric tenderness, nondistended, normoactive bowel sounds EXTREMITIES: 2+ dorsal pedal pulses, warm, no calf tenderness well-perfused, no edema. NEUROLOGICAL:Moveas all extremities Normal speech, gait not observed. PSYCH: Normal mood, normal affect. SKIN: Warm, dry, normal turgor LABS Laboratory Results - last 24 hr 07/01/20 07/01/20 07/02/20 17:41 21:06 06:02 WBC RBC Hgb Hct MCV MCH MCHC RDW Plt Count MPV Absolute Neuts (auto) Neutrophils % Lymphocytes % Monocytes % Eosinophils % Basophils % Nucleated RBC % Sodium Potassium Chloride Carbon Dioxide Anion Gap BUN Creatinine Est GFR (CKD-EPI)AfAm Est GFR (CKD-EPI)NonAf POC Glucometer 103 112 90 Random Glucose Calcium Phosphorus Magnesium Total Bilirubin AST ALT Alkaline Phosphatase Total Protein Albumin 07/02/20 07/02/20 06:21 06:21 WBC 8.4 RBC 3.41 L Hgb 11.1 Hct 33.4 MCV 98.2 H MCH 32.5 MCHC 33.0 RDW 13.2 Plt Count 207 MPV 8.8 Absolute Neuts (auto) 5.8 Neutrophils % 69.2 Lymphocytes % 19.1 D Monocytes % 8.3 Eosinophils % 2.7 Basophils % 0.7 Nucleated RBC % 0 Sodium 139 Potassium 3.3 L Chloride 107 Carbon Dioxide 30 Anion Gap 3 L BUN 7.0 Creatinine 1.0 Est GFR (CKD-EPI)AfAm 63.38 Est GFR (CKD-EPI)NonAf 54.68 POC Glucometer Random Glucose 99 Calcium 9.1 Phosphorus 2.7 Magnesium 1.6 L Total Bilirubin 0.5 AST 34 ALT 22 Alkaline Phosphatase 117 Total Protein 7.2 Albumin 3.1 L HOSPITAL COURSE: Date of Admission:06/29/20 Date of Discharge: 07/02/20 Pt. presented for abdominal pain with hematochezia. CT Abdomen/Pelvis showed diffuse gastric wall thickening consistent with gastritis and extensive colitis from mid transverse to proximal descending colon. Pt. was started on IV antibiotics, IVF and bowel rest. Eliquis was held until resolution of hematochezia and then resumed without complications. Pt. was seen by Infectious disease, Gastroenterology and General Surgery. Hospital course discussed and agreed upon with Pt. Medication adjustments and hospital follow up as detailed below. Minutes to complete discharge: 35 Discharge Summary Problems reviewed: Yes Reason For Visit: OCCULT BLOOD IN STOOLS Current Active Problems Colitis (Acute) Guaiac positive stools (Acute) Condition: Fair - Instructions Diet, Activity, Other Instructions: YOUR VISIT You came to the hospital because you were experiencing abdominal pain and had few episodes with blood in stool. You were admitted to the hospital for care of these symptoms. Imaging of your abdomen showed that you had inflammation/infection in your colon. You were seen and evaluated by Gastroenterology and and Infectious disease doctors. You were treated with intravenous antibiotics, bowel rest and IV fluids. You are now stable and may return home. Imaging also showed that you may have some inflammation in your stomach also. You will need out patient GI evaluation with EGD and colonoscopy for further evaluation. MEDICATIONS Please continue to take your home medications as prescribed. Please take Metronidazole 500mg EVERY 8 hours for 3 more days Please take Levaquin 750 mg ONCE a day for 3 more days ADDITIONAL CARE Please make an appointment to see your primary care provider, , within 1 week from today to discuss the hospital course Please make an appointment to see your GI, Dr. Varner, within 1-2 weeks for further evaluation with EGD and colonoscopy. ADDITIONAL INFORMATION Please call 911 or come directly to the emergency department if you experience recurrence of the symptoms that brought you to the hospital, unusual headache, vision change, shortness of breath, chest pain, numbness, tingling, loss of alertness/awareness, loss of function, unusual bleeding or any alarming symptoms. Referrals: Vinh Varner DO [Staff Physician] - 2 Weeks (colitis. EGD + colonoscopy outpatient) Alejandra Jeffrey MD [Primary Care Provider] - 1 Week (f/u hospital course) Disposition: HOME - Home Medications Comprehensive Discharge Medication List: Ambulatory Orders Brimonidine Tartrate [Alphagan 0.15% -] 1 drop OU BID 06/02/18 Ferrous Sulfate [Feosol] 325 mg PO BID 07/15/18 Albuterol Sulfate [Proair Hfa] 8.5 gm IH DAILY 07/21/18 Apixaban [Eliquis] 5 mg PO BID 07/21/18 Atorvastatin Ca [Lipitor] 20 mg PO DAILY 11/04/18 Cholecalciferol (Vitamin D3) [Vitamin D3] 1 tab PO DAILY 11/05/18 Folic Acid 1 mg PO DAILY 11/05/18 Nifedipine [Procardia Xl] 60 mg PO DAILY 06/29/20 Olmesartan Medoxomil [Benicar -] 40 mg PO DAILY 06/29/20 Spironolactone [Aldactone -] 25 mg PO DAILY 06/29/20 levoFLOXacin [Levaquin] 750 mg PO DAILY #3 tab 07/02/20 metroNIDAZOLE [Flagyl -] 500 mg PO Q8H #9 tablet 07/02/20 This patient is new to me today: Yes Date on this admission: 07/02/20 Emergency Visit: Yes ED Registration Date: 06/29/20 Care time: The patient presented to the Emergency Department on the above date and was hospitalized for further evaluation of their emergent condition. Critical Care patient: No - Discharge Referral Referred to [facility] No ATTENDING PHYSICIAN STATEMENT I saw and evaluated the patient. I reviewed the resident's note and discussed the case with the resident. I agree with the resident's findings and plan as documented. SUBJECTIVE: OBJECTIVE: ASSESSMENT AND PLAN:
[2020-07-02] MEDS: ATORVASTATIN CA 20 MG TABLET (FP) PO SCH (21:05)
[2020-07-03] MEDS: BRIMONIDINE TARTRATE 0.15% OPHTHALMIC 5 ML BOTTLE OU SCH (05:28)
[2020-07-03 06:46] VITALS: BP 144/71; PULSE 50; TEMP 98.7
--- NOTE | 2020-07-03 07:25 | PN.GI ---
GI Progress Note Subjective: cancelled - Objective Vital Signs: Vital Signs Temperature 98.7 F 07/03/20 06:45 Pulse Rate 50 L 07/03/20 06:45 Respiratory Rate 20 07/03/20 06:45 Blood Pressure 144/71 07/03/20 06:45 O2 Sat by Pulse Oximetry (%) 100 07/03/20 06:45 Labs: CBC, BMP 07/02/20 06:21 07/02/20 06:21 INR, PTT INR 1.10 (0.83-1.09) H 06/29/20 03:00 Problem List - Problems (1) Colitis Code(s): K52.9 - NONINFECTIVE GASTROENTERITIS AND COLITIS, UNSPECIFIED (2) Abdominal pain Code(s): R10.9 - UNSPECIFIED ABDOMINAL PAIN Qualifiers: Abdominal location: unspecified location Qualified Code(s): R10.9 - Unspecified abdominal pain (3) A-fib Code(s): I48.91 - UNSPECIFIED ATRIAL FIBRILLATION Qualifiers: Atrial fibrillation type: paroxysmal Qualified Code(s): I48.0 - Paroxysmal atrial fibrillation (4) Anemia Code(s): D64.9 - ANEMIA, UNSPECIFIED Qualifiers: Anemia type: unspecified type Qualified Code(s): D64.9 - Anemia, unspecified
[2020-07-03] MEDS ORDERED: cefTRIAXone SODIUM 1 GM VIAL ONE (08:40)
[2020-07-03] MEDS ORDERED: DEXTROSE 5%-WATER - 50 ML IVPB ONE (08:40)
[2020-07-03] MEDS: CEFTRIAXONE 1 GM in DEXTROSE 5%-WATER - 50 ML IVPB SCH (09:00)
[2020-07-03] MEDS: FOLIC ACID 1 MG TABLET (FP) PO SCH (09:01)
[2020-07-03] MEDS: CHOLECALCIFEROL (VIT D3) 1,000 UNIT (25 MCG) TABLET PO SCH (09:01)
[2020-07-03] MEDS: APIXABAN 5 MG TABLET PO SCH (09:01)
[2020-07-03] MEDS: LOSARTAN POTASSIUM 50 MG TABLET PO SCH (09:01)
[2020-07-03] MEDS: NIFEdipine E.R 60 MG TABLET PO SCH (09:02)
--- NOTE | 2020-07-03 10:29 | PN ---
Progress Note, Physician History of Present Illness: stable stools normal no complaint - Current Medication List Current Medications: Active Medications Apixaban (Eliquis -) 5 mg PO BID [facility] Last Admin: 07/03/20 09:01 Dose: 5 mg Documented by: Atorvastatin Calcium (Lipitor -) 20 mg PO HS [facility] Last Admin: 07/02/20 21:05 Dose: 20 mg Documented by: Brimonidine Tartrate (Alphagan 0.15% -) 1 drop OU TID [facility] Last Admin: 07/03/20 05:28 Dose: 1 drop Documented by: Cholecalciferol (Vitamin D3 -) 2,000 unit PO DAILY [facility] Last Admin: 07/03/20 09:01 Dose: 2,000 unit Documented by: Folic Acid (Folic Acid -) 1 mg PO DAILY [facility] Last Admin: 07/03/20 09:01 Dose: 1 mg Documented by: Metronidazole (Flagyl 500mg Premixed Ivpb -) 500 mg in 100 mls @ 100 mls/hr IVPB Q8H-IV [facility] Last Admin: 07/03/20 09:01 Dose: 100 mls/hr Documented by: Ceftriaxone Sodium 1 gm/ (Dextrose) 50 mls @ 100 mls/hr IVPB DAILY [facility]; Protocol Last Admin: 07/03/20 09:00 Dose: 100 mls/hr Documented by: Losartan Potassium (Cozaar -) 100 mg PO DAILY [facility] Last Admin: 07/03/20 09:01 Dose: 100 mg Documented by: Nifedipine (Procardia Xl -) 60 mg PO DAILY [facility] Last Admin: 07/03/20 09:02 Dose: 60 mg Documented by: - Objective Vital Signs: Vital Signs Temperature 98.7 F 07/03/20 06:45 Pulse Rate 50 L 07/03/20 06:45 Respiratory Rate 20 07/03/20 06:45 Blood Pressure 144/71 07/03/20 06:45 O2 Sat by Pulse Oximetry (%) 98 07/03/20 09:00 Constitutional: Yes: No Distress, Calm Cardiovascular: Yes: S1, S2 Respiratory: Yes: Regular, CTA Bilaterally Gastrointestinal: Yes: Normal Bowel Sounds, Soft Musculoskeletal: Yes: WNL Extremities: Yes: WNL Neurological: Yes: Alert, Oriented Psychiatric: Yes: Alert, Oriented Labs: CBC, BMP 07/02/20 06:21 07/02/20 06:21 INR, PTT INR 1.10 (0.83-1.09) H 06/29/20 03:00 Assessment/Plan 74 year old female with history of hypertension, hyperlipidemia, Afib (on Eliquis), asthma, presents with complaint of hematochezia, and left lower quadrant abdominal pain. Colitis History of Afib History of hypertension History of hyperlipidemia History of Diabetes Mellitus (non insulin dependent) plan oral abx complete the course
--- NOTE | 2020-07-03 13:24 | PN ---
Progress Note (short form) - Note Progress Note: Subjective: no fever or chills . No OCAMPO , she feels " great " today. No ABd pain , no diarrhea . tolerated regular diet Objective: Vital Signs: Last Vital Signs Temp Pulse Resp BP Pulse Ox 98.7 F 50 L 20 144/71 98 07/03/20 06:45 07/03/20 06:45 07/03/20 06:45 07/03/20 06:45 07/03/20 09:00 PE : NAD Cv: RRR, 3/6 SM Lungs: CTAB Abd: soft, NT, NL. LE no edema ASSESSMENT AND PLAN: 74 y/o lady with HTN, HLD, A. Fib, Asthma who presented with adb pain and was found to have vazquez colitis 1- vazquez-colitis ,infectious vs ischemic 2- h/o A fib 3- hematochezia , stopped ( small amount on admission ) 4- HTN plan : cont oral Abx to complete 7 days of Abx cont eliquis cont HTN meds dispo : dc home . she understands she need GI f/u for colonoscopy . d/w ID d/w RN Visit type - Emergency Visit Emergency Visit: Yes ED Registration Date: 06/29/20 Care time: The patient presented to the Emergency Department on the above date and was hospitalized for further evaluation of their emergent condition. - New Patient This patient is new to me today: No - Critical Care Critical Care patient: No - Medication Review Med list reviewed for High Risk Meds patients 65 and older: No
== END 2020-07-03 12:13 | disposition home or self-care (01) | DRG 394 ==
LOC: JER 01:10 → JERBED 08:03 → J7W 23:43
PROVIDERS: ATTEND Internal Medicine
DX: K55.9 Vascular disorder of intestine, unspecified (principal); K92.1 Melena; K52.9 Noninfective gastroenteritis and colitis, unspecified; E11.9 Type 2 diabetes mellitus without complications; I10 Essential (primary) hypertension; E78.5 Hyperlipidemia, unspecified; I48.0 Paroxysmal atrial fibrillation; D72.829 Elevated white blood cell count, unspecified; H40.9 Unspecified glaucoma
CPT/HCPCS: 36415; 74177-TC; 80053; 81003; 82272; 82550; 82553; 82962; 83036; 83605; 83735; 84100; 84484; 85025; 85027; 85610; 85730; 87045; 87046; 87086; 87205; 93005; 93010; 99285-25; C9803; J0131; U0003

== ENCOUNTER 2020-12-01 05:23 | Day surgery (SDC) | payer OTHER ==
[2020-11-30 10:34] VITALS: BMI 21.3
[2020-12-01 09:41] VITALS: TEMP 98
[2020-12-01 12:17] VITALS: BP 120/62; PULSE 57
== END 2020-12-01 12:35 | disposition home or self-care (01) ==
LOC: JASU-ENDO 05:23
PROVIDERS: ATTEND Internal Medicine Gastroenterology
PROC: 0DBP8ZX Excision of Rectum, Via Natural or Artificial Opening Endoscopic, Diagnostic (ICD-10-PCS; principal; 2020-12-01 10:00)
DX: Z12.11 Encounter for screening for malignant neoplasm of colon (principal); K52.9 Noninfective gastroenteritis and colitis, unspecified; K57.30 Diverticulosis of large intestine without perforation or abscess without bleeding; K62.89 Other specified diseases of anus and rectum; K64.8 Other hemorrhoids; D64.9 Anemia, unspecified; I10 Essential (primary) hypertension; I48.91 Unspecified atrial fibrillation; E11.9 Type 2 diabetes mellitus without complications; J45.909 Unspecified asthma, uncomplicated
CPT/HCPCS: 88305-TC